=== PATIENT | female | born 1950 | race Caucasian/White ===

== ENCOUNTER 2020-06-16 08:00 | Outpatient (CLI) | payer MEDICARE, SELFPAY ==
--- NOTE | ~2020-06-16 | CT_ITS ---
EXAMINATION:CT chest wo con DATE: 06/16/2020 08:58 INDICATION: Lung nodule. TECHNIQUE: Computed tomography (CT) of the chest was performed without intravenous contrast. Automate d exposure control and iterative reconstruction technique were employed. The dose-length product (DLP ) was 92.91 mGy-cm. COMPARISON: PET CT 07/25/2019 FINDINGS: There is a stable 5 mm nodule in left lower lobe, consistent with granulomatous disease. Th ere is minimal atelectasis bilaterally. There is a broncholith in left upper lobe with bronchiectasis peripheral to the broncholith. The previously described nodule in this area has resolved. Calcified left hilar lymph nodes are consistent with old granulomatous disease. No pleural effusion. The heart size is normal. There are coronary artery calcifications. No pericardial effusion. There is mild thor acic spondylosis. IMPRESSION: 1. Bronchiectasis peripheral to a broncholith in left upper lobe. The previously described nodule in this area has resolved. Reviewed, dictated and finalized at location B. IMPRESSION: 1. Bronchiectasis peripheral to a broncholith in left upper lobe. The previousl y described nodule in this area has resolved.
--- NOTE | ~2020-06-16 | CT_ITS ---
EXAMINATION: CT abdomen pelvis w con DATE: 06/16/2020 08:56 INDICATION: Abdominal pain. TECHNIQUE: Computed tomography (CT) of the abdomen and pelvis was performed with 100 mL Omnipaque 350 intravenous contrast. Automated exposure control and iterative reconstruction technique were employe d. The dose-length product was 408.95 mGy-cm. COMPARISON: PET CT 07/25/2019 FINDINGS: The visualized portions of the lung bases demonstrate mild atelectasis. No pleural effusion . The heart size is normal. No pericardial effusion. There is a small sliding hiatal hernia. The live r is normal. Calcifications in the spleen are consistent with old granulomatous disease. There is a g allstone in the gallbladder, which is normal in size. The pancreas and adrenal glands are normal. The re are cysts in the kidneys measuring up to 1.5 cm on the right. There is fat stranding adjacent to a diverticulum of sigmoid colon, consistent with diverticulitis. There are no dilated loops of bowel. The appendix is not visualized. There are no pathologically enlarged lymph nodes. There is no free in traperitoneal fluid. There are multiple supraumbilical ventral hernias containing fat. There is mild lumbar spondylosis. IMPRESSION: 1. Mild sigmoid diverticulitis. No perforation or abscess. 2. Small sliding hiatal hernia. 3. Ventral hernias containing fat. 4. Cholelithiasis. Reviewed, dictated and finalized at location B.
[2020-06-16 08:43] LABS: Estimated Glomerular Filt Rate 50
== END 2020-06-16 08:01 | disposition home or self-care (01) ==
PROVIDERS: PCP Family Medicine; Visit Provider Family Medicine
DX: R10.9 Unspecified abdominal pain (principal); K21.9 Gastro-esophageal reflux disease without esophagitis; J47.9 Bronchiectasis, uncomplicated; K57.92 Diverticulitis of intestine, part unspecified, without perforation or abscess without bleeding; K44.9 Diaphragmatic hernia without obstruction or gangrene; K43.9 Ventral hernia without obstruction or gangrene; K80.20 Calculus of gallbladder without cholecystitis without obstruction
CPT/HCPCS: 71250; 74177; Q9967

== ENCOUNTER 2021-07-21 10:36 | Outpatient (CLI) | payer MEDICARE, SELFPAY ==
--- NOTE | ~2021-07-21 | MM_ITS ---
EXAMINATION: MM screening mickey BI w stone HISTORY: Screening TECHNIQUE: Craniocaudal and mediolateral oblique 3-D tomosynthesis images were obtained and synthetic 2-D images were generated. CAD analysis was submitted and interpreted. COMPARISON: Comparison to multiple prior studies sequentially, with oldest reviewed study dated 05/2015. BREAST PARENCHYMAL COMPOSITION: The breasts are heterogeneously dense, which may obscure small masses . FINDINGS: There is no evidence of suspicious mass, calcification, or architectural distortion to sugg est malignancy in either breast. There has been no suspicious interval change. IMPRESSION: 1. No mammographic evidence of malignancy. 2. Recommend routine screening mammography in one year. BI-RADS Category 1: Negative Reviewed, dictated and finalized at location A.
== END 2021-07-21 10:37 | disposition home or self-care (01) ==
LOC: ANHIMG 10:38
PROVIDERS: PCP Family Medicine; Visit Provider Family Medicine
DX: Z12.31 Encounter for screening mammogram for malignant neoplasm of breast (principal)
CPT/HCPCS: 77063; 77067

== ENCOUNTER → 2022-08-18 12:47 | Outpatient (CLI) | payer MEDICARE, SELFPAY ==
--- NOTE | ~2022-08-18 | US_ITS ---
US soft tissue UE LT 08/18/2022 13:09 Indication: Palpable area overlying the proximal ulna/radius for 3 weeks Procedure: High-resolution ultrasound of the area of palpable concern involving the posterior left fo rearm near the elbow Comparison: No prior studies for comparison. Findings: Normal heterogeneous soft tissues are seen without discrete solid or cystic mass. Impression: 1: Normal soft tissue ultrasound of the palpable area in the left upper extremity. No discrete mass i dentified. Reviewed, dictated and finalized at location B. Impression: 1: Normal soft tissue ultrasound of the palpable area in the left upper extremi ty. No discrete mass identified.
== END ==
PROVIDERS: PCP Family Medicine; Visit Provider Family Medicine
DX: R22.32 Localized swelling, mass and lump, left upper limb (principal)
CPT/HCPCS: 76882

== ENCOUNTER 2023-02-02 12:51 | Outpatient (CLI) | payer MEDICARE, MEDICAID, SELFPAY ==
--- NOTE | ~2023-02-02 | CT_ITS ---
Clinical Indication: Abnormal weight loss CT Scan of the Chest, Abdomen, and Pelvis with Contrast: Technique: Contiguous sections were acquired throughout the chest, abdomen, and pelvis after intraven ous administration of 100 cc of Omnipaque 350. Dose reduction technique was used on this scan by uti lizing automated exposure control and iterative reconstruction technique. The dose-length product (DL P) was 462.40 mGy-cm. COMPARISON: 06/16/2020 Findings: There is no evidence of any significant mediastinal, hilar or axillary lymphadenopathy. Calcified lef t hilar lymph nodes are present. Atherosclerotic calcifications of the aorta and coronary vessels are present. No large pulmonary embolus seen. No aortic aneurysm or dissection. There is no evidence of pleural or pericardial effusion. There is a 1.0 x 0.5 cm pleural-based nodule at the right middle lobe (axial image 87), not seen on p rior exam. No other significant pulmonary abnormality seen. The liver, spleen, pancreas, adrenals and kidneys are within normal limits. Small calcified gallstone present. There are atherosclerotic calcifications of the aorta. No lymphadenopathy. No bowel obstruction or bowel wall thickening. There is no evidence to suggest acute appendicitis. Fa t-containing umbilical hernia present. Urinary bladder is unremarkable. No adnexal mass seen. No ascites. Impression: 1.0 x 0.5 cm pleural-based nodule the right middle lobe. According to Fleischner Society criteria, co nsider short-term follow-up CT in 3 months, PET/CT, or attempted tissue sampling. Cholelithiasis. Fat-containing umbilical hernias. Reviewed, dictated and finalized at [facility]. Impression: 1.0 x 0.5 cm pleural-based nodule the right middle lobe. According to Fleischne r Society criteria, consider short-term follow-up CT in 3 months, PET/CT, or at tempted tissue sampling. Cholelithiasis. Fat-containing umbilical hernias.
[2023-02-02 13:19] LABS: Estimated Glomerular Filt Rate 40
== END 2023-02-02 12:52 | disposition home or self-care (01) ==
PROVIDERS: PCP Family Medicine; Visit Provider Family Medicine
DX: R63.4 Abnormal weight loss (principal); R05.9 Cough, unspecified; R91.1 Solitary pulmonary nodule; K80.20 Calculus of gallbladder without cholecystitis without obstruction; K42.9 Umbilical hernia without obstruction or gangrene
CPT/HCPCS: 71260; 74177; Q9967

== ENCOUNTER 2023-02-23 08:45 | Outpatient (CLI) | payer MEDICARE, MEDICAID, SELFPAY ==
--- NOTE | ~2023-02-23 | PE_ITS ---
EXAMINATION: PET_PETWHOLE_PT DATE: 02/23/2023 11:59 INDICATION: Nodule of lung TECHNIQUE: Blood glucose level was 121 mg/dL. 10.748 mCi of 18-fluorodeoxyglucose (18-FDG) was admini stered i.v. Low dose computed tomography (CT) images were acquired from the base of the brain to the proximal thighs for attenuation correction and anatomic localization. Positron emission tomography (P ET) images were acquired in the same distribution beginning 80 minutes after injection. Images includ ing fused PET/CT images were reconstructed in axial, coronal, and sagittal planes. Automated exposure control technique was employed. The dose-length product was 982.88mGy-cm. COMPARISON: None FINDINGS: Head/neck: There is symmetric increased activity in the oral cavity, palatine tonsils, parotid glands including small amount of more anterior ectopic parathyroid tissue overlying the right masseter muscle submandi bular glands, laryngeal muscles and ocular muscles without CT correlate, likely physiologic. No patho logically enlarged cervical lymphadenopathy or suspicious foci of increased FDG uptake in the visuali zed head or neck. Chest: Small calcified left upper lobe nodule and calcified left hilar and mediastinal lymph nodes consisten t with old granulomatous disease. No evident FDG uptake associated with a 10 x 5 mm pleural-based nod ule at the posterolateral right middle lobe. Mild discoid atelectasis in the left lower lobe. No susp icious pulmonary nodules, pneumonia, pulmonary edema or pleural effusion. Heart size is normal. Ather osclerotic coronary artery calcification is. No pericardial effusion. Thoracic aorta is normal in shakeel iber. There is mild uptake associated with a couple normal-sized bilateral axillary lymph nodes which are likely reactive. No pathologically enlarged thoracic lymphadenopathy. Abdomen/pelvis/proximal thighs: Physiologic renal accumulation and excretion of FDG activity in the kidneys, bladder and along portio ns of ureters. Normal degree and heterogenous pattern of increased uptake throughout the liver withou t radiologic correlate or dominant FDG avid lesion. The gallbladder, pancreas, spleen and bilateral a drenal glands are normal. Mild uptake scattered throughout the bowels without radiologic correlate, a lso likely physiologic. No other abnormal foci of increased FDG uptake or pathologically enlarged lym phadenopathy in the abdomen, pelvis or proximal thighs. Small fat-containing umbilical, supraumbilica l and infraumbilical ventral hernias. Musculoskeletal: Mild synovial uptake without radiologic correlate at the periphery of the joints at the bilateral luis alfredo ulders, hips and knees. There are also multiple foci of likely enthesopathic uptake at many sites of ligamentous or tendinous osseous attachments most prominent at the calcaneal origin of the plantar ap oneuroses and to lesser degree at multiple additional sites extending from the ischial tuberosities t o the knees and at multiple sites in the feet. No suspicious lytic, blastic or abnormally FDG avid mariella ne lesions. IMPRESSION: 1. No abnormal FDG uptake associated with a 10 x 5 mm pleural-based right middle lobe nodule. While r eassuring would recommend 6 month follow-up low-dose noncontrast chest CT . Reviewed, dictated and finalized at location L. IMPRESSION: 1. No abnormal FDG uptake associated with a 10 x 5 mm pleural-based right middl e lobe nodule. While reassuring would recommend 6 month follow-up low-dose nonc ontrast chest CT .
[2023-02-23 09:26] LABS: Glucose Point of Care 121 mg/dl (65-105)
== END 2023-02-23 08:46 | disposition home or self-care (01) ==
PROVIDERS: PCP Family Medicine; Visit Provider Family Medicine
DX: R91.1 Solitary pulmonary nodule (principal); R63.4 Abnormal weight loss
CPT/HCPCS: 78816; A9552

== ENCOUNTER → 2023-08-31 14:11 | Outpatient (CLI) | payer MEDICARE, MEDICAID, SELFPAY ==
--- NOTE | ~2023-08-31 | CT_ITS ---
EXAMINATION: CT diagnostic chest wo con DATE: 08/31/2023 14:27 INDICATION: Solitary pulmonary nodule, abnormal weight loss TECHNIQUE: Computed tomography (CT) of the chest was performed without intravenous contrast. The dose -length product (DLP) was 74.03 mGy-cm. Automated exposure control and iterative reconstruction techn ique were employed. COMPARISON: 02/02/2023 FINDINGS: There is a stable 10 mm x 5 mm pleural-based nodule of the right middle lobe. No additional pulmonary nodule is identified. The lungs are free of acute opacities. No pleural effusion or pneumo thorax. No pathologically enlarged thoracic lymph nodes are identified. The heart size is normal. The re is calcified coronary artery atherosclerosis. Cholelithiasis is noted. There is mild thoracic spon dylosis. IMPRESSION: 1. Stable right middle lobe nodule. Follow-up low-dose CT in six months is recommended. Reviewed, dictated and finalized at location L. 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 Stable right middle lobe nodule. Follow-up low-dose CT in six months is hilda mmended.
== END ==
PROVIDERS: PCP Family Medicine; Visit Provider Family Medicine
DX: R91.1 Solitary pulmonary nodule (principal)
CPT/HCPCS: 71250

== ENCOUNTER 2024-02-16 13:20 | Outpatient (CLI) | payer MEDICARE, MEDICAID, SELFPAY ==
--- NOTE | ~2024-02-16 | CT_ITS ---
CT Scan of the Chest without Contrast: Clinical Indication: Pulmonary nodule Technique: Contiguous sections were acquired throughout the chest without intravenous contrast. Dose reduction technique was used on this scan by utilizing automated exposure control and iterative recon struction technique. The dose-length product (DLP) was 73.51 mGy-cm. COMPARISON: 08/31/2023 Findings: There is no evidence of any significant mediastinal, hilar or axillary lymphadenopathy. There are ath erosclerotic ossifications of the aorta and coronary arteries. Calcified left hilar lymph nodes are p resent. There is no evidence of pleural or pericardial effusion. Calcified left upper lobe granuloma present. Stable pleural-based nodule right middle lobe (axial frank ge 89). Images through the upper abdomen reveal possible partially imaged clinically. Impression: Stable pleural-based right middle lobe pulmonary nodule. Possible splenomegaly, partially imaged. Reviewed, dictated and finalized at location . Impression: Stable pleural-based right middle lobe pulmonary nodule. Possible splenomegaly, partially imaged.
== END 2024-02-16 13:21 ==
PROVIDERS: PCP Family Medicine; Visit Provider Family Medicine
DX: R91.1 Solitary pulmonary nodule (principal)
CPT/HCPCS: 71250

== ENCOUNTER 2024-07-15 14:11 | Outpatient (CLI) | payer MEDICARE, MEDICAID, SELFPAY ==
--- NOTE | ~2024-07-15 | DEXA_ITS ---
Bone Density Report Name: TOMASA BAIN Age: 73 Sex: Female Ethnicity: White Date of : 1950 Indication: postmenopausal; screening for osteoporosis; rheumatoid arthritis; Referring Provider: SHASHANK, SINDHU Barron Study: Bone densitometry was performed. Exam Date: July 15, 2024 Accession number: [id number] Bone Density: Region BMD T-score Z-score Classification AP Spine(L1-L4) 0.868 -1.6 0.6 Osteopenia Femoral Neck (Left) 0.689 -1.4 0.5 Osteopenia Total Hip (Left) 0.809 -1.1 0.5 Osteopenia Femoral Neck (Right) 0.644 -1.8 0.1 Osteopenia Total Hip (Right) 0.762 -1.5 0.1 Osteopenia Total Hip Mean 0.785 -1.3 0.3 Osteopenia World Health Organization criteria for BMD impression classify patients as: Normal (T-score at or above -1.0), Osteopenia (T-score between -1.0 and -2.5), or Osteoporosis (T-score at or below -2.5). 10-year Fracture Risk(1): Major Osteoporotic Fracture 15% Hip Fracture 3.2% Reported Risk Factors: [place] (), Neck BMD=0.644, BMI=25.8, rheumatoid arthritis (1) FRAX(R) Version 3.08. Fracture probability calculated for an untreated patient. Fracture probability may be lower if the patient has received treatment. Previous Exams: Region Exam Age BMD T-score BMD Change BMD Change Date g/cm2 vs Baseline vs Previous AP Spine (L1-L4) 07/15/2024 73 0.868 -1.6 -0.092 (-9.6%) -0.109 (-11.2% 02/07/2017 66 0.977 -0.6 0.017 (1.7%) 0.017 (1.7%) 11/09/2015 65 0.960 -0.8 Total Hip(Left) 07/15/2024 73 0.809 -1.1 -0.180 (-18.2% -0.195 (-19.4% 02/07/2017 66 1.004 0.5 0.014 (1.5%) 0.014 (1.5%) 11/09/2015 65 0.989 0.4 Total Hip(Right) 07/15/2024 73 0.762 -1.5 -0.198 (-20.6% -0.188 (-19.8% 02/07/2017 66 0.950 0.1 -0.010 (-1.0%) -0.010 (-1.0%) 11/09/2015 65 0.960 0.1 *Denotes significance at 95% confidence level, LSC for AP Spine = 0.022 g/cm2, LSC for Total Hip = 0.027 g/cm2 Clinical Information Provided by Patient: Has rheumatoid arthritis Has used the following medications: Vitamin D Patient maximum height was 67.0 Menopause Age: 57 No regular weight bearing exercise Drinks caffeinated beverages Onset of menses at age 17 Number of children 1 Impression: The patient has low bone mass, based on the Right Femoral Neck T-score. The patient has an estimated ten-year risk of hip fracture of 3.2% and an estimated ten-year risk of major fractur
== END 2024-07-15 14:12 | disposition home or self-care (01) ==
LOC: ANHIMG 14:13
PROVIDERS: PCP Nurse Practitioner Family; Visit Provider Nurse Practitioner Family
DX: M85.89 Other specified disorders of bone density and structure, multiple sites (principal); Z13.820 Encounter for screening for osteoporosis
CPT/HCPCS: 77080

== ENCOUNTER 2024-07-23 16:25 | Outpatient (CLI) | payer MEDICARE, MEDICAID, SELFPAY ==
--- NOTE | ~2024-07-23 | MM_ITS ---
EXAMINATION: MM screening mickey BI w stone HISTORY: Screening TECHNIQUE: Craniocaudal and mediolateral oblique 3-D tomosynthesis images were obtained and synthetic 2-D images were generated. CAD analysis was submitted and interpreted. COMPARISON: Comparison to multiple prior studies sequentially, with oldest reviewed study dated 2014. BREAST PARENCHYMAL COMPOSITION: Not dense: There are scattered areas of fibroglandular density. FINDINGS: There is no evidence of suspicious mass, calcification, or architectural distortion to sugg est malignancy in either breast. There has been no suspicious interval change. IMPRESSION: 1. No mammographic evidence of malignancy. 2. Recommend routine screening mammography in one year. BI-RADS Category 1: Negative Reviewed, dictated and finalized at location B.
== END 2024-07-23 16:26 | disposition home or self-care (01) ==
LOC: ANHIMG 16:25
PROVIDERS: PCP Nurse Practitioner Family; Visit Provider Nurse Practitioner Family
DX: Z12.31 Encounter for screening mammogram for malignant neoplasm of breast (principal)
CPT/HCPCS: 77063; 77067

== ENCOUNTER 2024-11-02 10:25 | Inpatient (IN) | payer MEDICARE, MEDICAID, SELFPAY ==
[2024-11-02] VITALS (26 sets, daily range): BP systolic 118–175; BP diastolic 55–79; PULSE 95–110; RESP 15–29; TEMP 36.2–36.3; O2SAT 96–100; BMI 26.1
--- NOTE | ~2024-11-02 | XR_ITS ---
XR chest 2V DATE: 11/02/2024 11:20 INDICATION: Chest pain for 3 days, shortness of breath TECHNIQUE: AP and lateral views COMPARISON: 02/16/2024 CT chest FINDINGS: Normal heart size. There is aortic arch calcification and mild thoracic aortic tortuosity. No hilar or mediastinal enlargement. There is bilateral hyperinflation suggesting COPD. No pulmonary infiltrate or consolidation, pleural effusion or pulmonary vascular congestion or pneumo thorax is detected. Osteoarthritic changes noted at the glenohumeral joints, greater on the left. Osteopenia. Mild degene rative spurring of the thoracic spine. IMPRESSION: Bilateral hyperinflation suggesting COPD No active cardiopulmonary disease Aortic calcification and tortuosity Osteopenia Bilateral glenohumeral osteoarthritis Reviewed, dictated and finalized at location [facility]. [facility] [employer]
--- NOTE | 2024-11-02 10:41 | ECG_ITS ---
Test Date: 2024-11-02 10:47:13 Measurements Intervals [place] Rate: 106 P: 59 [place]: 144 QRS: 37 QRSD: 114 T: 51 QT: 368 QTc: 489 Interpretive Statements SINUS TACHYCARDIA PROBABLE LATERAL MYOCARDIAL INFARCTION , OF INDETERMINATE AGE [35 ms Q WAVE IN I/aVL/V5/V6] INFEROLATERAL ST ABNORMALITY, CONSIDER ISCHEMIA ABNORMAL ECG Electronically Signed On 11-02-2024 10:53:19 PHYSICAL INSTRUCTOR by Omero Main M.D.
[2024-11-02 11:13] LABS: Hematocrit 26.2 % (37.0-47.0); Hemoglobin 8.2 g/dL (12.0-15.0); Mean Corpuscular HGB Conc 31.3 g/dl (32-36); Mean Corpuscular Volume 60.8 fl (80-100); Mean Platelet Volume 10.4 fl (7.4-10.4); Platelet Count Result 291 k/mm3 (150-375); Red Blood Count 4.31 M/mm3 (4.2-5.4); Red Cell Distribution Width 17.3 % (11.5-14.5); White Blood Count 33.3 K/mm3 (4.5-10.0)
[2024-11-02 11:26] LABS: INR 1.1; Prothrombin Time 14.2 Seconds (11.1-14.7)
[2024-11-02 11:27] LABS: Partial Thromboplastin Time 24.3 Seconds (22.3-36.8)
[2024-11-02 11:36] LABS: Band Neutrophils Percent 11 % (0-6); Large Platelets Present; Lymphocytes Absolute Manual 1.66 K/mm3 (1.1-4.5); Lymphocytes Percent Manual 5 % (18-44); Monocytes Absolute Manual 1.33 K/mm3 (0.1-0.90); Monocytes Percent Manual 4 % (3-9); Neutrophils Percent Manual 80 % (46-73); Platelet Estimate Adequate (Adequate); Total Cells Counted 100
[2024-11-02 11:37] LABS: Anisocytosis 1+; Burr Cells 2+; Ovalocytes 1+; Schistocytes Rare
[2024-11-02 11:38] LABS: Troponin I < 0.012 ng/mL (0.000-0.034)
[2024-11-02 11:55] LABS: Alanine Aminotransferase 26 U/L (6-35); Albumin Level 4.3 g/dL (3.5-5.1); Alkaline Phosphatase 77 U/L (38-126); Anion Gap 15 mmol/L (4-12); Aspartate Amino Transferase 21 U/L (14-36); Bilirubin,Total 1.1 mg/dL (0.2-1.3); Blood Urea Nitrogen 6 mg/dL (7-17); Calcium 9.2 mg/dL (8.4-10.2); Carbon Dioxide 15 mmol/L (22-30); Chloride 86 mmol/L (98-107); Estimated CRCL calculation 47 ml/min; Estimated Glomerular Filt Rate 59; Glucose 286 mg/dL (65-110); Lipase 74 U/L (23-300); Potassium 3.8 mmol/L (3.4-5.0); Sodium 116 mmol/L (137-145)
[2024-11-02] MEDS: ASPIRIN 81 MG CHEWABLE TABLET 324 MG PO (12:09)
[2024-11-02] MEDS: SODIUM CHLORIDE 0.9% IV 1,000 ML 999 ML IV CONT (12:24)
[2024-11-02] MEDS: MORPHINE SULFATE (*CRX) 4 MG/ML INJ IV PUSH ×2 (13:30→16:03)
[2024-11-02 13:33] LABS: Add Urine Microscopic? NO; Appearance Urine Clear (Clear); Bilirubin Urine Negative (Negative); Blood Urine Negative (Negative); Color Urine Yellow (Yellow); Glucose Urine UA 3+ mg/dL (Negative); Ketones Urine Trace mg/dL (Negative); Leukocyte Esterase Ur Negative LEU/UL (Negative); Nitrate Urine Negative (Negative); Protein Urine Negative (Negative); Specific Grav Ur 1.022 (1.001-1.035); Urobilinogen Urine 0.2 mg/dL (<2.0); pH Urine 5.5 (5.0-9.0)
--- NOTE | 2024-11-02 14:05 | PM.IMHP ---
H&P: HPI History of Present Illness Date/Time: 11/02/24 14:05 Chief Complaint: Body aches Narrative: 74-year-old female past medical history of diabetes, hypertension hyperlipidemia and arthritis presents to the hospital with vague complaints of general body aches. Patient is unable to describe her symptoms very well however she states that she feels better now. She denies nausea vomiting fever chills. Patient has leukocytosis at 33.2 anemia and 8.2, sodium of 116 hyperglycemia of to 86, UA was negative for acute infection, chest x-ray shows bilateral hyperinflation, no acute cardiopulmonary process, EKG shows sinus tachycardia qtc 489, patient was given 1 L bolus in the emergency room and sodium was ruled checked and came back at 121, she was started on half-normal saline at 75 by nephrology. Review of Systems Review of Systems: 12 systems were reviewed and are negative except for as per HPI. [facility] Past Medical History Medical History (Updated 11/03/24 @ 00:30 by Elba Lee, [employer]) Arthritis Diabetes Hyperlipidemia Hypertension Social History Social History Smoking packs per day: 1 Smoking cigarettes per day: 20.0 Smoking status: Former smoker Tobacco type: cigarettes Alcohol intake: current Drinks per week: 1 Substance use: current Substance use type: marijuana Other substance usage details: every day marijuana Last use: 11/02/2024 Do You Feel Safe in your Home?: Yes Lack of Transportation: No Lack of Food: Never True Current Housing: I Have Housing Concerned About Future Housing: No Difficulty Paying Gas/Electric Bills: No Difficulty Paying for Meds: No Currently Unemployed: No Education: Grade School Difficulty w/ Childcare or Family Care: No Spiritual care concerns: No Meds Home Medications and Allergies Home Medications ?Medication ?Instructions ?Recorded ?Confirmed ?Type amlodipine 5 mg tablet 5 mg PO DAILY 11/02/24 11/02/24 History ergocalciferol (vitamin D2) 1,250 1,250 mcg PO DAILY 11/02/24 11/02/24 History mcg (50,000 unit) capsule etanercept 50 mg/mL (1 mL) 50 mg subcut WEEKLY 11/02/24 11/02/24 History subcutaneous pen injector (Enbrel SureClick) fenofibrate 160 mg tablet 160 mg PO QHS 11/02/24 11/02/24 History glipizide 10 mg tablet, extended 20 mg PO DAILY 11/02/24 11/02/24 History release 24 hr hydrochlorothiazide 25 mg tablet 25 mg PO DAILY 11/02/24 11/02/24 History hydroxychloroquine 200 mg tablet 310 mg PO BID 11/02/24 11/02/24 History isosorbide mononitrate 30 mg 30 mg PO DAILY 11/02/24 11/02/24 History tablet,extended release 24 hr leflunomide 20 mg tablet (Arava) 20 mg PO DAILY 11/02/24 11/02/24 History levothyroxine 75 mcg tablet 75 mcg PO DAILY 11/02/24 11/02/24 History losartan 100 mg tablet 100 mg PO DAILY 11/02/24 11/02/24 History metformin 1,000 mg tablet 1,000 mg PO BID 11/02/24 11/02/24 History omeprazole 40 mg capsule,delayed 40 mg PO DAILY 11/02/24 11/02/24 History release potassium chloride 20 mEq 20 meq PO BID 11/02/24 11/02/24 History tablet,extended release (K-Tab) simvastatin 20 mg tablet 20 mg PO DAILY 11/02/24 11/02/24 History sitagliptin phosphate 100 mg 100 mg PO DAILY 11/02/24 11/02/24 History tablet (Januvia) tirzepatide 5 mg/0.5 mL 5 mg subcut WEEKLY 11/02/24 11/02/24 History subcutaneous pen injector (Milad) Allergies Allergy/AdvReac Type Severity Reaction Status Date / Time codeine AdvReac Unknown Nausea and Verified 11/02/24 23:35 Vomiting Vital Signs Vital Signs - 24 hr 11/02/24 10:43 11/02/24 12:10 11/02/24 12:11 Temperature 97.4 F L Pulse Rate 108 H 107 H Respiratory Rate 16 Blood Pressure 145/67 H Pulse Oximetry 98 96 Oxygen Delivery Room Air Room Air 11/02/24 12:12 11/02/24 12:47 11/02/24 13:36 Temperature Pulse Rate 110 H 104 H Respiratory Rate 17 29 H 20 Blood Pressure 158/75 H Pulse Oximetry 100 100 99 Oxygen Delivery Exam Narrative: General: well appearing, appears stated age. HEENT: normocephalic, atraumatic. Mucous membranes moist. EOMI, PERRLA, bilateral sclera anicteric, no conjunctival injection. Neck supple without JVD, lymphadenopathy, or bruit. Respiratory: clear to ascultation bilaterally. Wheezing Cardiovascular: Regular rate and rhythm, normal S1-S2 upon ascultation. No murmurs, rubs, or clicks. PMI is nondisplaced, capillary refill less than 3 second. Abdomen: Soft, round, no pulsatile masses, nondistended and nontender. No rebound, no guarding. No CVA tenderness, no hepatosplenomegaly. Bowel sounds present to all four quadrants. No high pitch or tinkling sounds, resonant to percussion. Extremities: No cyanosis, clubbing, or edema present. Pulses are palpable 2/2. Active ROM to all four extremities. Neuro: Alert and orientated x 4. PERRLA. Cranial nerves 2-12 intact without focal deficit. Skin: Warm, dry, and intact, without rash, erythema, or lesion. Psych: pleasant, cooperative, normal speech, normal affect, no hallucinations, no dysarthia H&P: Results Labs Labs: Short CBC 11/02/24 Range/Units 11:00 WBC 33.3 H (4.5-10.0) K/mm3 Hgb 8.2 L (12.0-15.0) g/dL Hct 26.2 L (37.0-47.0) % Plt Count 291 (150-375) k/mm3 BMP 11/02/24 11:00 Sodium 116 L* Potassium 3.8 Chloride 86 L Carbon Dioxide 15 L BUN 6 L Creatinine 0.93 Glucose 286 H Calcium 9.2 Cardiac Enzymes 11/02/24 Range/Units 11:00 Troponin I < 0.012 (0.000-0.034) ng/mL Liver Function 11/02/24 Range/Units 11:00 Total Bilirubin 1.1 (0.2-1.3) mg/dL AST 21 (14-36) U/L ALT 26 (6-35) U/L Alkaline Phosphatase 77 (38-126) U/L Albumin 4.3 (3.5-5.1) g/dL Urine 11/02/24 Range/Units 13:27 Urine Color Yellow (Yellow) Urine Appearance Clear (Clear) Urine pH 5.5 (5.0-9.0) Ur Specific [place] 1.022 (1.001-1.035) Urine Protein Negative (Negative) mg/dL Urine Glucose (UA) 3+ H (Negative) mg/dL Assessment and Plan Assessment and plan (1) Acute hyponatremia: Code(s): E87.1 - Hypo-osmolality and hyponatremia Status: Acute Assessment and Plan: Nephrology consulted Q.6 hours sodium Free water restriction Half-normal saline Fluid restriction (2) Body aches: Code(s): R52 - Pain, unspecified Status: Acute Assessment and Plan: Pain management (3) Leukocytosis: Code(s): D72.829 - Elevated white blood cell count, unspecified Status: Acute Assessment and Plan: Unknown cause UA no acute infection Blood cultures pending Chest x-ray no acute process No soft tissue infection (4) Hypertension: Code(s): I10 - Essential (primary) hypertension Status: Acute Assessment and Plan: Hold hydrochlorothiazide due to severe hyponatremia Continue losartan (5) Diabetes: Code(s): E11.9 - Type 2 diabetes mellitus without complications Status: Acute Assessment and Plan: Accu-Cheks a.c. HS SSI Diabetic diet Hold home anti hyperglycemic medications (6) Arthritis: Code(s): M19.90 - Unspecified osteoarthritis, unspecified site Status: Acute Assessment and Plan: Continue hydrochloroquine and Arava (7) Hypothyroidism: Code(s): E03.9 - Hypothyroidism, unspecified Status: Acute Assessment and Plan: Continue Synthroid Quality VTE Prophylaxis VTE prophylaxis: mechanical ordered and pharmacologic ordered Hospitalist MIPS Advance Care Plan I have confirmed that the patient's Advanced Care Plan is present, code status is documented, or surrogate decision maker is listed in patient medical record.: Yes Medication Reconciliation I have utilized all available resources to obtain, update and review the patients current medications (includes all prescriptions, OTC, herbals, cannabis, and nutritional supplements).: Yes
[2024-11-02 14:23] LABS: Troponin I < 0.012 ng/mL (0.000-0.034)
--- NOTE | 2024-11-02 14:23 | ED.GENADULT ---
HPI - General Adult General Chief complaint: Unspecified Stated complaint: SOB, leg/hip pain, chest pain Time Seen by Provider: 11/02/24 12:08 History of Present Illness HPI narrative: Patient is a 74-year-old female who presents ER with multiple complaints. Her main complaint for me is body aches. Reports it is in her knees and back. Patient has history of some sort of arthritis but she does not know the name. Chart review shows she is on immunologic so it is likely that she has rheumatoid arthritis or psoriatic arthritis. She does not seem to know the name of her medications or why she takes some. She denies fevers or chills or sweats. No new injury. Patient does report some generalized weakness. No falls. Related Data Allergies Allergy/AdvReac Type Severity Reaction Status Date / Time codeine AdvReac Unknown Nausea and Verified 11/02/24 12:42 Vomiting Review of Systems Review of Systems: All systems reviewed & are unremarkable except as noted in HPI and below Constitutional: Constitutional: Reports no additional constitutional complaints Cardiovascular: Cardiovascular: Reports no additional cardiovascular complaints Respiratory: Respiratory: Reports no additional respiratory complaints Gastrointestinal: Gastrointestinal: Reports no additional gastrointestinal complaints Musculoskeletal: Musculoskeletal: Denies back pain, Reports myalgias, Reports arthralgias and Denies joint swelling Neurologic: Reports system reviewed and no additional complaints, except as documented PMFSH Past Medical History Medical History (Updated 11/02/24 @ 19:37 by Stevenson Gary MD) Arthritis Diabetes Hyperlipidemia Hypertension Social History Social History Smoking status: Never smoker Alcohol intake: current Exam Narrative: GENERAL: Well-appearing, well-nourished, and in no acute distress. HEAD: Normocephalic, atraumatic. ENT: Mucous membranes moist. NECK: Supple. CHEST: Clear to auscultation. No respiratory distress. HEART: Regular rate and rhythm. Normal peripheral pulses. ABDOMEN: Soft, nontender, nondistended EXTREMITIES: Normal range of motion. No edema. SKIN: Warm, dry, no rash. NEURO: Alert and oriented x3. PSYCH: Normal mood and affect. Course Course Emergency Course: Significant leukocytosis. Denies steroid use. No infection on chest x-ray or within the urine. Patient has mild sore throat but strep test is negative. Patient does have a significantly low sodium of 116. She reports she drinks 8-9 glasses of water a day. Nephrology consulted. Patient received 1 L normal saline and we will repeat a sodium and then performed q.6 our checks on her sodium level. Patient is on HCTZ and that will need to be held. Patient has normal appearing joints and there is no evidence of effusion or erythema of the joints to indicate a septic joint. She has normal range of motion with active motion. Patient may be having cramping myalgias related to electrolyte disruption. Vital Signs Vital signs: Vital Signs Temperature 97.4 F L 11/02/24 10:43 Pulse Rate 108 H 11/02/24 10:43 Respiratory Rate 16 11/02/24 10:43 Blood Pressure 145/67 H 11/02/24 10:43 Pulse Oximetry 98 11/02/24 10:43 Oxygen Delivery Room Air 11/02/24 10:43 Temperature 97.4 F L 11/02/24 10:43 Pulse Rate 98 11/02/24 18:31 Respiratory Rate 19 11/02/24 18:31 Blood Pressure 175/70 H 11/02/24 18:31 Pulse Oximetry 100 11/02/24 18:31 Oxygen Delivery Room Air 11/02/24 12:10 Medical Decision Making Vital Signs Vital Signs: Vital Signs Temperature 97.4 F L 11/02/24 10:43 Pulse Rate 108 H 11/02/24 10:43 Respiratory Rate 16 11/02/24 10:43 Blood Pressure 145/67 H 11/02/24 10:43 Pulse Oximetry 98 11/02/24 10:43 Oxygen Delivery Room Air 11/02/24 10:43 Temperature 97.4 F L 11/02/24 10:43 Pulse Rate 98 11/02/24 18:31 Respiratory Rate 19 11/02/24 18:31 Blood Pressure 175/70 H 11/02/24 18:31 Pulse Oximetry 100 11/02/24 18:31 Oxygen Delivery Room Air 11/02/24 12:10 Lab Data 11/02/24 11:00 11/02/24 15:31 Labs: Lab Results 11/02/24 11/02/24 11/02/24 Range/Units 11:00 13:27 13:54 WBC 33.3 H (4.5-10.0) K/mm3 RBC 4.31 (4.2-5.4) M/mm3 Hgb 8.2 L (12.0-15.0) g/dL Hct 26.2 L (37.0-47.0) % MCV 60.8 L (80-100) fl MCH 19.0 L (26-34) pg MCHC 31.3 L (32-36) g/dl RDW 17.3 H (11.5-14.5) % Plt Count 291 (150-375) k/mm3 MPV 10.4 (7.4-10.4) fl Immature Gran % (Auto) Not Reportable Neut % (Auto) Not Reportable Lymph % (Auto) Not Reportable [place] % (Auto) Not Reportable Eos % (Auto) Not Reportable Baso % (Auto) Not Reportable Lymph # (Auto) Not Reportable [place] # (Auto) Not Reportable Eos # (Auto) Not Reportable Baso # (Auto) Not Reportable Abs Immat Gran (auto) Not Reportable Absolute Neuts (auto) Not Reportable Absolute Nucleated RBC Not Reportable Total Counted 100 Neutrophils % (Manual) 80 H (46-73) % Band Neutrophils % 11 H (0-6) % Lymphocytes % (Manual) 5 L (18-44) % Monocytes % (Manual) 4 (3-9) % Nucleated RBC % Not Reportable Abs Neuts (Manual) 30.30 H (1.7-7.2) K/mm3 Abs Lymphs (Manual) 1.66 (1.1-4.5) K/mm3 Abs Monocytes (Manual) 1.33 H (0.1-0.90) K/mm3 Platelet Estimate Adequate (Adequate) Large Platelets Present Anisocytosis 1+ Ovalocytes 1+ Jonn Cells 2+ Schistocytes Rare PT 14.2 (11.1-14.7) Seconds INR 1.1 APTT 24.3 (22.3-36.8) Seconds Sodium 116 L* (137-145) mmol/L Potassium 3.8 (3.4-5.0) mmol/L Chloride 86 L (98-107) mmol/L Carbon Dioxide 15 L (22-30) mmol/L Anion Gap 15 H (4-12) mmol/L BUN 6 L (7-17) mg/dL Creatinine 0.93 (0.7-1.0) mg/dL Estim Creat Clear Calc 47 ml/min Estimated GFR 59 (59 - ) Glucose 286 H (65-110) mg/dL Calcium 9.2 (8.4-10.2) mg/dL Total Bilirubin 1.1 (0.2-1.3) mg/dL AST 21 (14-36) U/L ALT 26 (6-35) U/L Alkaline Phosphatase 77 (38-126) U/L Troponin I < 0.012 < 0.012 (0.000-0.034) ng/mL Total Protein 7.0 (6.3-8.2) g/dL Albumin 4.3 (3.5-5.1) g/dL Lipase 74 (23-300) U/L Urine Color Yellow (Yellow) Urine Appearance Clear (Clear) Urine pH 5.5 (5.0-9.0) Ur Specific [place] 1.022 (1.001-1.035) Urine Protein Negative (Negative) mg/dL Urine Glucose (UA) 3+ H (Negative) mg/dL Urine Ketones Trace H (Negative) mg/dL Ur Blood (Man) Negative (Negative) Urine Nitrate Negative (Negative) Urine Bilirubin Negative (Negative) Urine Urobilinogen 0.2 (<2.0) mg/dL Leukocyte Esterase Rfl Negative (Negative) JOSUE/UL Group A Strep (PCR) (Negative) 11/02/24 11/02/24 Range/Units 15:31 15:31 WBC (4.5-10.0) K/mm3 RBC (4.2-5.4) M/mm3 Hgb (12.0-15.0) g/dL Hct (37.0-47.0) % MCV (80-100) fl MCH (26-34) pg MCHC (32-36) g/dl RDW (11.5-14.5) % Plt Count (150-375) k/mm3 MPV (7.4-10.4) fl Immature Gran % (Auto) Neut % (Auto) Lymph % (Auto) [place] % (Auto) Eos % (Auto) Baso % (Auto) Lymph # (Auto) [place] # (Auto) Eos # (Auto) Baso # (Auto) Abs Immat Gran (auto) Absolute Neuts (auto) Absolute Nucleated RBC Total Counted Neutrophils % (Manual) (46-73) % Band Neutrophils % (0-6) % Lymphocytes % (Manual) (18-44) % Monocytes % (Manual) (3-9) % Nucleated RBC % Abs Neuts (Manual) (1.7-7.2) K/mm3 Abs Lymphs (Manual) (1.1-4.5) K/mm3 Abs Monocytes (Manual) (0.1-0.90) K/mm3 Platelet Estimate (Adequate) Large Platelets Anisocytosis Ovalocytes [place] Cells Schistocytes PT (11.1-14.7) Seconds INR APTT (22.3-36.8) Seconds Sodium 121 L Cancelled (137-145) mmol/L Potassium 3.7 (3.4-5.0) mmol/L Chloride 92 L (98-107) mmol/L Carbon Dioxide 20 L (22-30) mmol/L Anion Gap 9 (4-12) mmol/L BUN 5 L (7-17) mg/dL Creatinine 0.94 (0.7-1.0) mg/dL Estim Creat Clear Calc 46 ml/min Estimated GFR 59 (59 - ) Glucose 222 H (65-110) mg/dL Calcium 8.9 (8.4-10.2) mg/dL Total Bilirubin (0.2-1.3) mg/dL AST (14-36) U/L ALT (6-35) U/L Alkaline Phosphatase (38-126) U/L Troponin I (0.000-0.034) ng/mL Total Protein (6.3-8.2) g/dL Albumin (3.5-5.1) g/dL Lipase (23-300) U/L Urine Color (Yellow) Urine Appearance (Clear) Urine pH (5.0-9.0) Ur Specific [place] (1.001-1.035) Urine Protein (Negative) mg/dL Urine Glucose (UA) (Negative) mg/dL Urine Ketones (Negative) mg/dL Ur Blood (Man) (Negative) Urine Nitrate (Negative) Urine Bilirubin (Negative) Urine Urobilinogen (<2.0) mg/dL Leukocyte Esterase Rfl (Negative) JOSUE/UL Group A Strep (PCR) Not detected (Negative) Imaging Data Radiologist's impression: ITS Impressions Chest X-Ray 11/02/24 11:23 IMPRESSION: Bilateral hyperinflation suggesting COPD No active cardiopulmonary disease Aortic calcification and tortuosity Osteopenia Bilateral glenohumeral osteoarthritis Discharge Plan Discharge Clinical Impression: Acute hyponatremia, Body aches, Leukocytosis Patient Disposition: Still a Patient Condition: Stable
[2024-11-02 15:47] LABS: Anion Gap 9 mmol/L (4-12); Blood Urea Nitrogen 5 mg/dL (7-17); Calcium 8.9 mg/dL (8.4-10.2); Carbon Dioxide 20 mmol/L (22-30); Chloride 92 mmol/L (98-107); Estimated CRCL calculation 46 ml/min; Estimated Glomerular Filt Rate 59; Glucose 222 mg/dL (65-110); Potassium 3.7 mmol/L (3.4-5.0); Sodium 121 mmol/L (137-145)
[2024-11-02 16:00] LABS: Strep Group A RT-PCR NOT DETECTED (Negative)
[2024-11-02] MEDS: SODIUM CHLORIDE 0.9% IV 1,000 ML 100 ML IV CONT (16:02)
--- NOTE | 2024-11-02 19:27 | PC.NURSE ---
pt arrived arrived from ED to [id number] @[id number] 11/02/24.
[2024-11-02 20:45] LABS: Troponin I < 0.012 ng/mL (0.000-0.034)
[2024-11-02] MEDS: SODIUM CHLORIDE 0.45% 1,000 ML 75 ML IV CONT (21:50)
[2024-11-02] MEDS: MORPHINE SULFATE (*CRX) 2 MG/ML INJ IV PUSH (22:01)
--- NOTE | 2024-11-02 23:36 | ADMGEN ---
This patient, Kianna Hill, was admitted to [address] [place] [address] Room 331-02 at approx 1900. Patient/family oriented to hospital policies and general routines including ID bracelet, bed and alarms, visiting hours, pain management, procedures, bathroom and other care routines, personal items, smoking policy, room service/diet, and visiting hours. Information on how to activate the Rapid Response Team has been discussed. Patient/Family are encouraged to report perceived risks to care and to ask questions if they do not understand what they are told or what they should do.
[2024-11-03 00:59] VITALS: BP 147/70; PULSE 94; RESP 16; TEMP 36.8; O2SAT 97
[2024-11-03 01:05] LABS: Add Urine Microscopic? YES; Appearance Urine Clear (Clear); Bacteria Urine 1+ /hpf; Bilirubin Urine Negative (Negative); Blood Urine Trace (Negative); Color Urine Yellow (Yellow); Glucose Urine UA 3+ mg/dL (Negative); Ketones Urine Trace mg/dL (Negative); Leukocyte Esterase Ur 1+ LEU/UL (Negative); Nitrate Urine Negative (Negative); Non Pathogenic Casts 0-2; Protein Urine 1+ mg/dL (Negative); RBC Urine 0-2 /hpf (0-2); Specific Grav Ur 1.018 (1.001-1.035); Squamous Epithelial Cell Urine Few /hpf (Few); Urobilinogen Urine 0.2 mg/dL (<2.0)
[2024-11-03 05:30] VITALS: BP 167/67; PULSE 101; RESP 16; TEMP 36.5; O2SAT 98
[2024-11-03] MEDS: LEVOTHYROXINE SODIUM 75 MCG TABLET PO (06:00)
[2024-11-03 06:39] LABS: Basophils Absolute Auto 0.1 K/mm3 (0.0-0.1); Basophils Percent Auto 0.2 % (0.2-1.2); Hematocrit 26.9 % (37.0-47.0); Hemoglobin 7.8 g/dL (12.0-15.0); Immature Granulocyte Absolute 0.19 K/mm3 (0.00-0.031); Immature Granulocyte Percent A 0.8 % (0-0.5); Lymphocytes Absolute Auto 1.07 K/mm3 (0.9-3.2); Lymphocytes Percent Auto 4.3 % (18.3-44.2); Mean Corpuscular Hemoglobin 18.2 pg (26-34); Mean Corpuscular Volume 62.7 fl (80-100); Mean Platelet Volume 10.7 fl (7.4-10.4); Monocytes Absolute Auto 1.6 K/mm3 (0.1-0.6); Monocytes Percent Auto 6.2 % (2.6-8.5); Neutrophils Absolute Auto 22.2 K/mm3 (1.3-6.7); Neutrophils Percent Auto 88.5 % (45.5-73.1); Platelet Count Result 309 k/mm3 (150-375); Red Blood Count 4.29 M/mm3 (4.2-5.4); White Blood Count 25.1 K/mm3 (4.5-10.0)
[2024-11-03 06:44] LABS: Anion Gap 9 mmol/L (4-12); Blood Urea Nitrogen 8 mg/dL (7-17); Calcium 8.7 mg/dL (8.4-10.2); Carbon Dioxide 21 mmol/L (22-30); Chloride 95 mmol/L (98-107); Estimated CRCL calculation 51 ml/min; Estimated Glomerular Filt Rate > 60; Glucose 159 mg/dL (65-110); Potassium 3.9 mmol/L (3.4-5.0); Sodium 125 mmol/L (137-145)
[2024-11-03 07:15] LABS: Platelet Estimate Adequate (Adequate)
[2024-11-03 07:18] LABS: Anisocytosis 1+; Burr Cells 1+; Microcytosis 1+ (NORMAL); Ovalocytes 1+
[2024-11-03 07:19] LABS: Acanthocytes 1+; Schistocytes None Seen
[2024-11-03 07:20] LABS: Hypochromasia 1+
[2024-11-03 08:09] LABS: Glucose Point of Care 165 mg/dl (65-105)
--- NOTE | 2024-11-03 10:30 | PM.IMPN ---
Progress Note: A&P Assessment and Plan (1) Acute hyponatremia: Code(s): E87.1 - Hypo-osmolality and hyponatremia Status: Acute Assessment and Plan: Nephrology consulted Q.6 hours sodium Free water restriction Half-normal saline Fluid restriction (2) Body aches: Code(s): R52 - Pain, unspecified Status: Acute Assessment and Plan: Pain management (3) Leukocytosis: Code(s): D72.829 - Elevated white blood cell count, unspecified Status: Acute Assessment and Plan: Unknown cause UA no acute infection Blood cultures pending Chest x-ray no acute process Urias culture and start Ceftriaxone (4) Hypertension: Code(s): I10 - Essential (primary) hypertension Status: Acute Assessment and Plan: Hold hydrochlorothiazide due to severe hyponatremia Continue losartan (5) Diabetes: Code(s): E11.9 - Type 2 diabetes mellitus without complications Status: Acute Assessment and Plan: Accu-Cheks a.c. HS SSI Diabetic diet Hold home anti hyperglycemic medications (6) Arthritis: Code(s): M19.90 - Unspecified osteoarthritis, unspecified site Status: Acute Assessment and Plan: Continue hydrochloroquine and Arava (7) Hypothyroidism: Code(s): E03.9 - Hypothyroidism, unspecified Status: Acute Assessment and Plan: Continue Synthroid Plan 11/03/2024 Will continue current treatment. Monitor cbc, cmp and cultures. Code status full DVT prophylaxis ordered Subjective Date/time seen: 11/03/24 10:30 Interval history: Patient was seen during the morning rounds today. Patient is feeling better. No shortness of breath or chest pain. No abdominal pain, nausea, no vomiting. Review of Systems Review of Systems: 12 systems were reviewed and are negative except for as per HPI. Exam Narrative: General: well appearing, appears stated age. HEENT: normocephalic, atraumatic. Mucous membranes moist. EOMI, PERRLA, bilateral sclera anicteric, no conjunctival injection. Neck supple without JVD, lymphadenopathy, or bruit. Respiratory: clear to ascultation bilaterally. Wheezing Cardiovascular: Regular rate and rhythm, normal S1-S2 upon ascultation. No murmurs, rubs, or clicks. PMI is nondisplaced, capillary refill less than 3 second. Abdomen: Soft, round, no pulsatile masses, nondistended and nontender. No rebound, no guarding. No CVA tenderness, no hepatosplenomegaly. Bowel sounds present to all four quadrants. No high pitch or tinkling sounds, resonant to percussion. Extremities: No cyanosis, clubbing, or edema present. Pulses are palpable 2/2. Active ROM to all four extremities. Neuro: Alert and orientated x 4. PERRLA. Cranial nerves 2-12 intact without focal deficit. Skin: Warm, dry, and intact, without rash, erythema, or lesion. Psych: pleasant, cooperative, normal speech, normal affect, no hallucinations, no dysarthia Objective Data Vital Signs Vital Signs: Vital Signs - 24 hr 11/02/24 10:43 11/02/24 12:10 11/02/24 12:11 Temperature 36.3 C L Pulse Rate 108 H 107 H Respiratory Rate 16 Blood Pressure 145/67 H Pulse Oximetry 98 96 Oxygen Delivery Room Air Room Air 11/02/24 12:12 11/02/24 12:47 11/02/24 13:36 Temperature Pulse Rate 110 H 104 H Respiratory Rate 17 29 H 20 Blood Pressure 158/75 H Pulse Oximetry 100 100 99 Oxygen Delivery 11/02/24 14:12 11/02/24 14:15 11/02/24 14:16 Temperature Pulse Rate 110 H 104 H 104 H Respiratory Rate 19 19 19 Blood Pressure 159/69 H Pulse Oximetry 100 99 99 Oxygen Delivery 11/02/24 15:07 11/02/24 15:15 11/02/24 15:16 Temperature Pulse Rate 106 H 98 101 H Respiratory Rate 20 19 19 Blood Pressure 128/56 L Pulse Oximetry 100 Oxygen Delivery 11/02/24 15:46 11/02/24 16:09 11/02/24 16:16 Temperature Pulse Rate 107 H 100 97 Respiratory Rate 20 20 20 Blood Pressure 148/75 H 127/64 118/79 Pulse Oximetry 99 99 100 Oxygen Delivery 11/02/24 16:30 11/02/24 16:31 11/02/24 16:45 Temperature Pulse Rate 99 101 H 100 Respiratory Rate 15 20 18 Blood Pressure 151/70 H Pulse Oximetry 99 100 Oxygen Delivery 11/02/24 16:46 11/02/24 17:00 11/02/24 17:01 Temperature Pulse Rate 100 101 H 97 Respiratory Rate 16 20 18 Blood Pressure 146/70 H 146/69 H Pulse Oximetry 100 100 99 Oxygen Delivery 11/02/24 17:16 11/02/24 18:24 11/02/24 18:30 Temperature Pulse Rate 102 H 96 96 Respiratory Rate 20 16 18 Blood Pressure 154/73 H Pulse Oximetry 99 100 Oxygen Delivery 11/02/24 18:31 11/02/24 21:35 11/02/24 21:51 Temperature 36.2 C L Pulse Rate 98 95 Respiratory Rate 19 18 Blood Pressure 175/70 H 148/55 H Pulse Oximetry 100 99 Oxygen Delivery Room Air 11/03/24 00:59 11/03/24 05:30 11/03/24 05:30 Temperature 36.8 C 36.5 C 36.5 C Pulse Rate 94 101 H 101 H Respiratory Rate 16 16 16 Blood Pressure 147/70 H 167/67 H 167/67 H Pulse Oximetry 97 98 98 Oxygen Delivery Intake/Output Intake/Output: Intake & Output 10/31/24 11/01/24 11/02/24 11/03/24 23:59 23:59 23:59 23:59 Intake Total 1000 450 Balance 1000 450 Meds/Results Medications: Active Medications Generic Name Dose Route Start Last Admin Trade Name Freq PRN Reason Stop Dose Admin Acetaminophen 650 mg 11/02/24 14:02 Acetaminophen 325 Mg Tablet PO Q4H PRN Mild Pain (1-3) or Fever Hydrocodone Bitart/Acetaminophen 1 tab 11/02/24 14:29 Hydrocodone/Acetaminophen (*Crx) 5-325 Mg Tablet PO Q4H PRN Pain Rated 4-6 Amlodipine Besylate 5 mg 11/03/24 09:00 Amlodipine Besylate 5 Mg Tablet PO DAILY [facility] Dextrose 12.5 gm 11/03/24 00:32 Dextrose 50% 25 Gm/50 Ml Syringe IV PUSH PRN PRN Hypoglycemia Protocol Enoxaparin Sodium 40 mg 11/03/24 09:00 Enoxaparin 40 Mg/0.4 Ml Syringe SUB-Q DAILY [facility] Fenofibrate 160 mg 11/03/24 21:00 Fenofibrate 160 Mg Tablet PO QHS [facility] Glucagon 1 mg 11/03/24 00:32 Glucagon For Inj 1 Mg Vial IM PRN PRN Hypoglycemia Protocol Glucose 15 gm 11/03/24 00:32 Glucose Oral Gel 15 Gm Of Glucse In 37.5 Gm Tube PO PRN PRN Hypoglycemia Protocol Hydroxychloroquine Sulfate 300 mg 11/03/24 09:00 Hydroxychloroquine Sulfate 200 Mg Tablet PO BIDWM [facility] Sodium Chloride 1,000 mls @ 75 mls/hr 11/02/24 21:10 11/02/24 21:50 Sodium Chloride 0.45% IV CONT 75 mls/hr .[id number] [facility] Administration Dextrose 1,000 mls @ 100 mls/hr 11/03/24 00:32 Dextrose 5% 1,000 Ml IVPB PRN PRN Hypoglycemia Protocol Ceftriaxone Sodium 1 gm in 50 mls @ 100 mls/hr 11/03/24 10:30 Rocephin 1 Gm/Ns 50 Ml IVPB Q24H [facility] Insulin Aspart 2 - 5 units 11/03/24 08:00 Insulin Aspart (*Bkc) 100 Units/Ml SUB-Q TIDWM [facility] Protocol Insulin Aspart 1 - 2 units 11/03/24 21:00 Insulin Aspart (*Bkc) 100 Units/Ml SUB-Q HS [facility] Protocol Insulin Glargine 11 units 11/03/24 21:00 Insulin Glargine (*Bkc) 100 Units/Ml 0.15 units/kg (11 units) SUB-Q HS [facility] Isosorbide Mononitrate 30 mg 11/03/24 09:00 Isosorbide Mononitrate 30 Mg Tab.Er.24h PO DAILY [facility] Leflunomide 20 mg 11/03/24 09:00 Leflunomide 20 Mg Tablet PO DAILY [facility] Levothyroxine Sodium 75 mcg 11/03/24 06:30 11/03/24 06:00 Levothyroxine Sodium 75 Mcg Tablet PO 75 mcg DAILY@0630 [facility] Administration Losartan Potassium 100 mg 11/03/24 09:00 Losartan Potassium 100 Mg Tablet PO DAILY [facility] Morphine Sulfate 2 mg 11/02/24 14:29 11/02/24 22:01 Morphine Sulfate (*Crx) 2 Mg/Ml Inj IV PUSH 2 mg Q2H PRN Administration Pain Rated 7-10 Pantoprazole Sodium 40 mg 11/03/24 09:00 Pantoprazole 40 Mg Tablet PO Q12HR [facility] Polysaccharide Iron Complex 150 mg 11/03/24 17:00 Polysaccharide Iron Complex 150 Mg Capsule PO BIDWM [facility] Potassium Chloride 20 meq 11/03/24 09:00 Potassium Chloride 20 Meq Er Tablet PO BID [facility] Simvastatin 20 mg 11/03/24 09:00 Simvastatin 20 Mg Tablet PO DAILY [facility] Radiology Results: ITS Impressions Chest X-Ray 11/02/24 11:23 IMPRESSION: Bilateral hyperinflation suggesting COPD No active cardiopulmonary disease Aortic calcification and tortuosity Osteopenia Bilateral glenohumeral osteoarthritis Labs Labs: Laboratory Results - last 24 hr 11/02/24 11/02/24 11/02/24 11:00 13:27 13:54 WBC 33.3 H RBC 4.31 Hgb 8.2 L Hct 26.2 L MCV 60.8 L MCH 19.0 L MCHC 31.3 L RDW 17.3 H Plt Count 291 MPV 10.4 Immature Gran % (Auto) Not Reportable Neut % (Auto) Not Reportable Lymph % (Auto) Not Reportable [place] % (Auto) Not Reportable Eos % (Auto) Not Reportable Baso % (Auto) Not Reportable Lymph # (Auto) Not Reportable [place] # (Auto) Not Reportable Eos # (Auto) Not Reportable Baso # (Auto) Not Reportable Abs Immat Gran (auto) Not Reportable Absolute Neuts (auto) Not Reportable Absolute Nucleated RBC Not Reportable Total Counted 100 Neutrophils % (Manual) 80 H Band Neutrophils % 11 H Lymphocytes % (Manual) 5 L Monocytes % (Manual) 4 Nucleated RBC % Not Reportable Abs Neuts (Manual) 30.30 H Abs Lymphs (Manual) 1.66 Abs Monocytes (Manual) 1.33 H Platelet Estimate Adequate Large Platelets Present Hypochromasia Anisocytosis 1+ Microcytosis Ovalocytes 1+ [place] Cells 2+ Acanthocytes ([place]) Schistocytes Rare PT 14.2 INR 1.1 APTT 24.3 Sodium 116 L* Potassium 3.8 Chloride 86 L Carbon Dioxide 15 L Anion Gap 15 H BUN 6 L Creatinine 0.93 Estim Creat Clear Calc 47 Estimated GFR 59 Glucose 286 H POC Capillary Glucose Calcium 9.2 Total Bilirubin 1.1 AST 21 ALT 26 Alkaline Phosphatase 77 Troponin I < 0.012 < 0.012 Total Protein 7.0 Albumin 4.3 Lipase 74 Urine Color Yellow Urine Appearance Clear Urine pH 5.5 Ur Specific [place] 1.022 Urine Protein Negative Urine Glucose (UA) 3+ H Urine Ketones Trace H Ur Blood (Man) Negative Urine Nitrate Negative Urine Bilirubin Negative Urine Urobilinogen 0.2 Ur Leukocyte Esterase Leukocyte Esterase Rfl Negative Urine RBC Urine WBC Ur Squamous Epith Cells Urine Bacteria Urine Casts Group A Strep (PCR) 11/02/24 11/02/24 11/02/24 15:31 15:31 20:18 WBC RBC Hgb Hct MCV MCH MCHC RDW Plt Count MPV Immature Gran % (Auto) Neut % (Auto) Lymph % (Auto) [place] % (Auto) Eos % (Auto) Baso % (Auto) Lymph # (Auto) [place] # (Auto) Eos # (Auto) Baso # (Auto) Abs Immat Gran (auto) Absolute Neuts (auto) Absolute Nucleated RBC Total Counted Neutrophils % (Manual) Band Neutrophils % Lymphocytes % (Manual) Monocytes % (Manual) Nucleated RBC % Abs Neuts (Manual) Abs Lymphs (Manual) Abs Monocytes (Manual) Platelet Estimate Large Platelets Hypochromasia Anisocytosis Microcytosis Ovalocytes [place] Cells Acanthocytes ([place]) Schistocytes PT INR APTT Sodium 121 L Cancelled Potassium 3.7 Chloride 92 L Carbon Dioxide 20 L Anion Gap 9 BUN 5 L Creatinine 0.94 Estim Creat Clear Calc 46 Estimated GFR 59 Glucose 222 H POC Capillary Glucose Calcium 8.9 Total Bilirubin AST ALT Alkaline Phosphatase Troponin I < 0.012 Total Protein Albumin Lipase Urine Color Urine Appearance Urine pH Ur Specific [place] Urine Protein Urine Glucose (UA) Urine Ketones Ur Blood (Man) Urine Nitrate Urine Bilirubin Urine Urobilinogen Ur Leukocyte Esterase Leukocyte Esterase Rfl Urine RBC Urine WBC Ur Squamous Epith Cells Urine Bacteria Urine Casts Group A Strep (PCR) Not detected 11/03/24 11/03/24 11/03/24 00:54 05:59 08:00 WBC 25.1 H RBC 4.29 Hgb 7.8 L Hct 26.9 L MCV 62.7 L MCH 18.2 L MCHC 29.0 L RDW 18.0 H Plt Count 309 MPV 10.7 H Immature Gran % (Auto) 0.8 H Neut % (Auto) 88.5 H Lymph % (Auto) 4.3 L [place] % (Auto) 6.2 Eos % (Auto) 0.0 Baso % (Auto) 0.2 Lymph # (Auto) 1.07 [place] # (Auto) 1.6 H Eos # (Auto) 0.0 Baso # (Auto) 0.1 Abs Immat Gran (auto) 0.19 H Absolute Neuts (auto) 22.2 H Absolute Nucleated RBC 0.000 Total Counted Neutrophils % (Manual) Band Neutrophils % Lymphocytes % (Manual) Monocytes % (Manual) Nucleated RBC % 0.0 Abs Neuts (Manual) Abs Lymphs (Manual) Abs Monocytes (Manual) Platelet Estimate Adequate Large Platelets Hypochromasia 1+ Anisocytosis 1+ Microcytosis 1+ Ovalocytes 1+ Jonn Cells 1+ Acanthocytes ([place]) 1+ Schistocytes None seen PT INR APTT Sodium 125 L Potassium 3.9 Chloride 95 L Carbon Dioxide 21 L Anion Gap 9 BUN 8 Creatinine 0.84 Estim Creat Clear Calc 51 Estimated GFR > 60 Glucose 159 H POC Capillary Glucose 165 H Calcium 8.7 Total Bilirubin AST ALT Alkaline Phosphatase Troponin I Total Protein Albumin Lipase Urine Color Yellow Urine Appearance Clear Urine pH 6.0 Ur Specific [place] 1.018 Urine Protein 1+ H Urine Glucose (UA) 3+ H Urine Ketones Trace H Ur Blood (Man) Trace Urine Nitrate Negative Urine Bilirubin Negative Urine Urobilinogen 0.2 Ur Leukocyte Esterase 1+ H Leukocyte Esterase Rfl Urine RBC 0-2 Urine WBC 6-10 H Ur Squamous Epith Cells Few Urine Bacteria 1+ H Urine Casts 0-2 Group A Strep (PCR) Quality VTE Prophylaxis VTE prophylaxis: mechanical ordered and pharmacologic ordered
[2024-11-03 11:10] VITALS: BP 150/73; PULSE 95; RESP 16; TEMP 36.9; O2SAT 99
[2024-11-03] MEDS: LEFLUNOMIDE 20 MG TABLET PO (11:17)
[2024-11-03] MEDS: amLODIPine BESYLATE 5 MG TABLET PO (11:17)
[2024-11-03] MEDS: ISOSORBIDE MONONITRATE 30 MG TAB.ER.24H PO (11:17)
[2024-11-03] MEDS: HYDROXYCHLOROQUINE SULFATE 200 MG TABLET 300 MG PO (11:17)
[2024-11-03] MEDS: LOSARTAN POTASSIUM 100 MG TABLET PO (11:17)
[2024-11-03] MEDS: PANTOPRAZOLE 40 MG TABLET PO ×2 (11:17→21:08)
[2024-11-03] MEDS: POTASSIUM CHLORIDE 20 MEQ ER TABLET PO (11:18)
[2024-11-03] MEDS: SIMVASTATIN 20 MG TABLET PO (11:18)
[2024-11-03] MEDS: ENOXAPARIN 40 MG/0.4 ML SYRINGE SUB-Q (11:18)
[2024-11-03 12:01] LABS: Glucose Point of Care 203 mg/dl (65-105)
[2024-11-03] MEDS: DESMOPRESSIN ACETATE 4 MCG/ML AMP 2 MCG SUB-Q (12:27)
[2024-11-03] MEDS: MORPHINE SULFATE (*CRX) 2 MG/ML INJ IV PUSH ×2 (12:28→19:03)
[2024-11-03] MEDS: DEXTROSE 5% IN WATER 500 ML 225 ML IV CONT (12:33)
[2024-11-03] MEDS: INSULIN ASPART (*BKC) 100 UNITS/ML SUB-Q (12:34)
--- NOTE | 2024-11-03 12:42 | P.CONNP_ITS ---
Assessment and Plan Assessment and plan (1) Hyponatremia: Code(s): E87.1 - Hypo-osmolality and hyponatremia Status: Acute Assessment and Plan: The patient has a low sodium. We do not know how long this has been low, however she does not seem to have very many symptoms from the sodium of 116 so I suggest this has been going on for a while. The last time we had any blood work done was in 2015 and her sodium was low that time but that was the only time it was low before this in our system. Urinalysis shows a specific gravity of 1.018 which makes beer drinkers potomania less likely. The patient is on hydrochlorothiazide and so could have hyponatremia from this. She also takes pain pills at home which, if narcotics, could contribute to the hyponatremia as well. Omeprazole can contribute to low sodium as well. There are other causes of hyponatremia including: [employer] disease. The patient has no symptoms Pulmonary disease: The patient does have a nodule in her lung which was found on a CT scan in 2022 and the repeat in 2019 for was stable. PET scan was not positive for cancer either. Cancer: No history of cancer in this patient. Medications: No SSRIs but, as above, she takes hydrochlorothiazide, pain pills, and omeprazole. Hormones: Will check a cortisol level as well as a TSH The hydrochlorothiazide was discontinued. She is on hydrocodone. She has such significant pain we will just work around this. She is on pantoprazole. She has some GI symptoms. Consider changing this to famotidine down the line if sodium continues to be a problem. She was placed on a fluid restriction and given some IV fluids because there was worry about dehydration. The sodium level came up at a reasonable rate at 1st but this morning the sodium was just barely a higher than the recommended change in sodium and so I will give D5W plus DDAVP to bring the sodium level down a little bit. Will check osmolalities, TSH, cortisol, urine sodium, urine urea nitrogen. Will repeat the sodium later this afternoon to see where we are. (2) Hypothyroidism: Code(s): E03.9 - Hypothyroidism, unspecified Status: Acute Assessment and Plan: Check a TSH (3) Leukocytosis: Code(s): D72.829 - Elevated white blood cell count, unspecified Status: Acute Assessment and Plan: Evaluation is underway. (4) Arthritis: Code(s): M19.90 - Unspecified osteoarthritis, unspecified site Status: Acute Assessment and Plan: Possibly rheumatoid ? (5) Diabetes: Code(s): E11.9 - Type 2 diabetes mellitus without complications Status: Acute Assessment and Plan: On Accu-Cheks and sliding-scale insulin. Management per hospitalists. (6) Hypertension: Code(s): I10 - Essential (primary) hypertension Status: Acute Assessment and Plan: Systolic 140s to 170s. Will give an extra dose of amlodipine and increase dose to 10 History of Present Illness Reason for Consult Consult date: 11/03/24 Chief Complaint Chief complaint: hyponatremia, leukocytosis History of Present Illness Narrative: Kianna is a very pleasant 74-year-old lady who has multiple medical problems including arthritis (Kianna thinks it is rheumatoid), diabetes, hypertension, hyperlipidemia. The patient has been having a lot of trouble with her arthritis. She sees a rn palliative who was giving her medications for it and it was under pretty good control until about 5 days ago when it started getting worse. This continued to happen. She did not call her rn palliative but did call her primary care physician to let him know that she was going to the emergency room. She did not adjust any of her medications to try to help the flare. In the ER she was seen and found to have a sodium of 116 so she was admitted. The patient does say she drinks some fluid. She does take hydrochlorothiazide. She does take pain pills for her pain (but does not know the name of these) and takes omeprazole for GERD. She has no history of cancer, lung disease, or [employer] issues. She does take levothyroxine. Review of Systems 2 Constitutional: Constitutional: Reports no additional constitutional complaints Eyes: Eyes: Reports no additional eye complaints ENT: Reports system reviewed and no additional complaints, except as documented Cardiovascular: Cardiovascular: Reports no additional cardiovascular complaints Respiratory: Respiratory: Reports no additional respiratory complaints Gastrointestinal: Gastrointestinal: Reports no additional gastrointestinal complaints Genitourinary: Genitourinary: Reports no additional female genitourinary complaints Musculoskeletal: Musculoskeletal: Reports no additional musculoskeletal complaints Integumentary/Breasts: Skin/Breast: Reports system reviewed and no additional complaints, except as docu Neurologic: Reports system reviewed and no additional complaints, except as documented Psychiatric: Psychiatric: Reports no additional psychiatric complaints Endocrine: Endocrine: Reports no additional endocrine complaints [facility] Past Medical History Medical History Arthritis Diabetes Hyperlipidemia Hypertension Social History Social History Smoking packs per day: 1 Smoking cigarettes per day: 20.0 Smoking status: Former smoker Tobacco type: cigarettes Alcohol intake: current Drinks per week: 1 Substance use: current Substance use type: marijuana Other substance usage details: every day marijuana Last use: 11/02/2024 Do You Feel Safe in your Home?: Yes Lack of Transportation: No Lack of Food: Never True Current Housing: I Have Housing Concerned About Future Housing: No Difficulty Paying Gas/Electric Bills: No Difficulty Paying for Meds: No Currently Unemployed: No Education: Grade School Difficulty w/ Childcare or Family Care: No Spiritual care concerns: No Meds Home Medications and Allergies Home Medications ?Medication ?Instructions ?Recorded ?Confirmed ?Type amlodipine 5 mg tablet 5 mg PO DAILY 11/02/24 11/02/24 History ergocalciferol (vitamin D2) 1,250 1,250 mcg PO DAILY 11/02/24 11/02/24 History mcg (50,000 unit) capsule etanercept 50 mg/mL (1 mL) 50 mg subcut WEEKLY 11/02/24 11/02/24 History subcutaneous pen injector (Enbrel SureBryanick) fenofibrate 160 mg tablet 160 mg PO QHS 11/02/24 11/02/24 History glipizide 10 mg tablet, extended 20 mg PO DAILY 11/02/24 11/02/24 History release 24 hr hydrochlorothiazide 25 mg tablet 25 mg PO DAILY 11/02/24 11/02/24 History hydroxychloroquine 200 mg tablet 310 mg PO BID 11/02/24 11/02/24 History isosorbide mononitrate 30 mg 30 mg PO DAILY 11/02/24 11/02/24 History tablet,extended release 24 hr leflunomide 20 mg tablet (Arava) 20 mg PO DAILY 11/02/24 11/02/24 History levothyroxine 75 mcg tablet 75 mcg PO DAILY 11/02/24 11/02/24 History losartan 100 mg tablet 100 mg PO DAILY 11/02/24 11/02/24 History metformin 1,000 mg tablet 1,000 mg PO BID 11/02/24 11/02/24 History omeprazole 40 mg capsule,delayed 40 mg PO DAILY 11/02/24 11/02/24 History release potassium chloride 20 mEq 20 meq PO BID 11/02/24 11/02/24 History tablet,extended release (K-Tab) simvastatin 20 mg tablet 20 mg PO DAILY 11/02/24 11/02/24 History sitagliptin phosphate 100 mg 100 mg PO DAILY 11/02/24 11/02/24 History tablet (Januvia) tirzepatide 5 mg/0.5 mL 5 mg subcut WEEKLY 11/02/24 11/02/24 History subcutaneous pen injector (Milad) Allergies Allergy/AdvReac Type Severity Reaction Status Date / Time codeine AdvReac Unknown Nausea and Verified 11/02/24 23:35 Vomiting Vital Signs Vital Signs - 24 hr 11/02/24 12:47 11/02/24 13:36 11/02/24 14:12 Temperature Pulse Rate 110 H 104 H 110 H Respiratory Rate 29 H 20 19 Blood Pressure 158/75 H Pulse Oximetry 100 99 100 Oxygen Delivery 11/02/24 14:15 11/02/24 14:16 11/02/24 15:07 Temperature Pulse Rate 104 H 104 H 106 H Respiratory Rate 19 19 20 Blood Pressure 159/69 H Pulse Oximetry 99 99 Oxygen Delivery 11/02/24 15:15 11/02/24 15:16 11/02/24 15:46 Temperature Pulse Rate 98 101 H 107 H Respiratory Rate 19 19 20 Blood Pressure 128/56 L 148/75 H Pulse Oximetry 100 99 Oxygen Delivery 11/02/24 16:09 11/02/24 16:16 11/02/24 16:30 Temperature Pulse Rate 100 97 99 Respiratory Rate 20 20 15 Blood Pressure 127/64 118/79 151/70 H Pulse Oximetry 99 100 99 Oxygen Delivery 11/02/24 16:31 11/02/24 16:45 11/02/24 16:46 Temperature Pulse Rate 101 H 100 100 Respiratory Rate 20 18 16 Blood Pressure 146/70 H Pulse Oximetry 100 100 Oxygen Delivery 11/02/24 17:00 11/02/24 17:01 11/02/24 17:16 Temperature Pulse Rate 101 H 97 102 H Respiratory Rate 20 18 20 Blood Pressure 146/69 H 154/73 H Pulse Oximetry 100 99 99 Oxygen Delivery 11/02/24 18:24 11/02/24 18:30 11/02/24 18:31 Temperature Pulse Rate 96 96 98 Respiratory Rate 16 18 19 Blood Pressure 175/70 H Pulse Oximetry 100 100 Oxygen Delivery 11/02/24 21:35 11/02/24 21:51 11/03/24 00:59 Temperature 97.2 F L 98.2 F Pulse Rate 95 94 Respiratory Rate 18 16 Blood Pressure 148/55 H 147/70 H Pulse Oximetry 99 97 Oxygen Delivery Room Air 11/03/24 05:30 11/03/24 05:30 11/03/24 11:10 Temperature 97.7 F 97.7 F 98.4 F Pulse Rate 101 H 101 H 95 Respiratory Rate 16 16 16 Blood Pressure 167/67 H 167/67 H 150/73 H Pulse Oximetry 98 98 99 Oxygen Delivery Exam 2 Narrative: Exam Narrative: Well developed well-nourished female in no acute distress Skin is warm and dry without rash Head normocephalic atraumatic Eyes normal sclerae and conjunctivae Mouth normal lips teeth and gums Neck no nodes no thyromegaly no carotid bruits Axillae no nodes Back no CVA tenderness Lungs symmetric and clear to auscultation Heart regular rate and rhythm without rub or gallop Abdomen bowel sounds positive soft nontender, no HSM, masses, or bruits. Extremities no cyanosis, clubbing, or edema Pulses 2+ equal in radial arteries Psychological not anxious or depressed Neuro alert and oriented x3 motor 5/5 cranial nerves 2-12 intact reflexes 2+ and equal in the biceps and patellar tendons cerebellar normal rapid alternating movements Results Lab Results 11/03/24 05:59 11/03/24 05:59 Lab results: Most recent lab results Calcium 8.7 mg/dL (8.4-10.2) 11/03/24 05:59
[2024-11-03 14:27] LABS: Creatinine Urine 60.8 mg/dL; Total Protein Urine Random 49 mg/dL; Ur Ttl Prot Creatinine Ratio 0.81 mg/mg (0-0.20)
[2024-11-03 14:29] LABS: Urea Random Urine 396 MG/DL
[2024-11-03 14:33] LABS: Sodium Urine Random < 5 meq/L
[2024-11-03 16:24] LABS: Sodium 121 mmol/L (137-145)
[2024-11-03 16:27] VITALS: BP 137/68; PULSE 85; RESP 16; TEMP 36.9; O2SAT 100
[2024-11-03 17:10] LABS: Glucose Point of Care 157 mg/dl (65-105)
[2024-11-03] MEDS: ONDANSETRON HCL ODT 4 MG TABLET PO (17:24)
[2024-11-03 21:05] VITALS: BP 137/59; PULSE 82; RESP 18; TEMP 36.4; O2SAT 100
[2024-11-03] MEDS: FENOFIBRATE 160 MG TABLET PO (21:08)
[2024-11-03 21:45] LABS: Glucose Point of Care 122 mg/dl (65-105)
[2024-11-03] MEDS: INSULIN GLARGINE (*BKC) 100 UNITS/ML 11 UNITS SUB-Q (21:49)
[2024-11-04] VITALS (9 sets, daily range): BP systolic 133–180; BP diastolic 62–85; PULSE 79–96; RESP 14–17; TEMP 36–36.7; O2SAT 98–100
[2024-11-04] MEDS: ONDANSETRON HCL ODT 4 MG TABLET PO (05:24)
[2024-11-04] MEDS: HYDROcodone/acetaminophen (*CRX) 5-325 MG TABLET 1 TAB PO ×3 (05:24→21:00)
[2024-11-04] MEDS: LEVOTHYROXINE SODIUM 75 MCG TABLET PO (05:24)
[2024-11-04] MEDS: MORPHINE SULFATE (*CRX) 2 MG/ML INJ IV PUSH ×3 (06:00→08:56)
[2024-11-04 06:41] LABS: Hematocrit 22.6 % (37.0-47.0); Mean Corpuscular HGB Conc 29.6 g/dl (32-36); Mean Corpuscular Hemoglobin 18.4 pg (26-34); Mean Corpuscular Volume 62.1 fl (80-100); Mean Platelet Volume 10.3 fl (7.4-10.4); Platelet Count Result 232 k/mm3 (150-375); Red Blood Count 3.64 M/mm3 (4.2-5.4); Red Cell Distribution Width 17.5 % (11.5-14.5); White Blood Count 11.7 K/mm3 (4.5-10.0)
[2024-11-04 06:49] LABS: Hemoglobin 6.7 g/dL (12.0-15.0)
[2024-11-04 06:57] LABS: Alanine Aminotransferase 14 U/L (6-35); Albumin Level 3.1 g/dL (3.5-5.1); Alkaline Phosphatase 64 U/L (38-126); Anion Gap 4 mmol/L (4-12); Aspartate Amino Transferase 20 U/L (14-36); Bilirubin,Total 0.6 mg/dL (0.2-1.3); Blood Urea Nitrogen 8 mg/dL (7-17); Carbon Dioxide 20 mmol/L (22-30); Chloride 96 mmol/L (98-107); Estimated CRCL calculation 56 ml/min; Estimated Glomerular Filt Rate > 60; Glucose 111 mg/dL (65-110); Potassium 3.7 mmol/L (3.4-5.0); Sodium 120 mmol/L (137-145)
--- NOTE | 2024-11-04 07:16 | PM.IMPN ---
Progress Note: A&P Assessment and Plan (1) Acute hyponatremia: Code(s): E87.1 - Hypo-osmolality and hyponatremia Status: Acute Assessment and Plan: 11/04: - Nephrology consulted, received ddavp and d5 yesterday to slow trend. - Stable sodium (120 this am), check q12h, then likely daily. - Presumed etiology likely hctz, may be weeks before normalization. - Free water restriction in place. (2) Body aches: Code(s): R52 - Pain, unspecified Status: Acute Assessment and Plan: Cont. current, intermittently controlled. (3) Leukocytosis: Code(s): D72.829 - Elevated white blood cell count, unspecified Status: Acute Assessment and Plan: 11/04/24 - Undetermined etiology, markedly improved today with near normalization. Afebrile. - Cultures pending. - Cont. ceftriaxone. (4) Hypertension: Code(s): I10 - Essential (primary) hypertension Status: Acute Assessment and Plan: 11/04/24: - Elevated bp this am, will trend, consider uptitrating norvasc if remains high. (5) Diabetes: Code(s): E11.9 - Type 2 diabetes mellitus without complications Status: Acute Assessment and Plan: 11/04/24: - Generally within glycemic targets on current therapies. - Cont. Accu-Cheks a.c. HS with corrective insulin. - Diabetic diet. - Holding glipizide, metformin. (6) Arthritis: Code(s): M19.90 - Unspecified osteoarthritis, unspecified site Status: Acute Assessment and Plan: 11/04/24: - Encouraged to request prns when having pain. Has had more pain in the hips this am. 11/03/24 Stable. Continue hydrochloroquine and Arava (7) Hypothyroidism: Code(s): E03.9 - Hypothyroidism, unspecified Status: Acute Assessment and Plan: 11/04/24: TSH 1.7, Continue Synthroid (8) Microcytic anemia: Code(s): D50.9 - Iron deficiency anemia, unspecified Status: Acute Assessment and Plan: 11/04/24: - Anemic on presentation with hgb 8.2, steadily downtrending, now at 6.7. - Type and screen, transfuse 1 unit prbc. - check ferritin, tibc/iron/sat and fobt. - Consider GI consultation pending fobt results. - Hold lovenox. Plan 11/04/24: - Continue current management, appreciate nephrology recommendations. Sodium to q12h recheck. - Further workup anemia. Repeat h/h this afternoon. 11/03/2024 Will continue current treatment. Monitor cbc, cmp and cultures. Code status full DVT prophylaxis ordered Time Spent With Patient Time with patient: Greater than 35 minutes Subjective Date/time seen: 11/04/24 07:16 Interval history: Kianna states her hips are more painful today - similar to her normal arthritis, but worsened this am. Poor appetite. Review of Systems Review of Systems: All systems reviewed & are unremarkable except as noted in HPI and below Exam Narrative: GENERAL APPEARANCE: Appears to be in no acute distress. HEAD: normocephalic atraumatic EYES: PERRL, EOMI. Vision grossly intact. ENT: Hearing grossly intact, no nasal discharge NECK: Neck supple, trachea midline. CARDIAC: Normal S1/S2. Rhythm is regular. No murmurs, rubs, or gallops. No cyanosis or pallor. Extremities are warm and well perfused. LUNGS: Clear to auscultation without rales, rhonchi, wheezing or diminished breath sounds. Respirations even and unlabored. ABDOMEN: BS positive x 4 quadrants. Soft, nondistended, nontender. No guarding or rebound. MSK: No joint tenderness/swelling, fair strength in all extremities. PERIPHERAL VASCULAR: Peripheral pulses palpable. Normal perfusion, cap refill <2 seconds. No edema. NEURO: Follows commands. No focal deficits. SKIN: [place] without lesions or eruptions. PSYCH: Stable, no paranoia or delusional thinking. Objective Data Vital Signs Vital Signs: Vital Signs - 24 hr 11/03/24 11:10 11/03/24 16:27 11/03/24 21:05 Temperature 98.4 F 98.4 F Pulse Rate 95 85 Respiratory Rate 16 16 Blood Pressure 150/73 H 137/68 Pulse Oximetry 99 100 100 Oxygen Delivery Room Air 11/03/24 21:05 11/04/24 00:00 11/04/24 04:00 Temperature 97.6 F 97.0 F L 96.8 F L Pulse Rate 82 84 80 Respiratory Rate 18 14 14 Blood Pressure 137/59 L 133/62 170/79 H Pulse Oximetry 100 98 99 Oxygen Delivery Intake/Output Intake/Output: Intake & Output 11/01/24 11/02/24 11/03/24 11/04/24 23:59 23:59 23:59 23:59 Intake Total 1000 1430 500 Balance 1000 1430 500 Meds/Results Medications: Active Medications Generic Name Dose Route Start Last Admin Trade Name Freq PRN Reason Stop Dose Admin Acetaminophen 650 mg 11/02/24 14:02 Acetaminophen 325 Mg Tablet PO Q4H PRN Mild Pain (1-3) or Fever Hydrocodone Bitart/Acetaminophen 1 tab 11/02/24 14:29 11/04/24 05:24 Hydrocodone/Acetaminophen (*Crx) 5-325 Mg Tablet PO 1 tab Q4H PRN Administration Pain Rated 4-6 Amlodipine Besylate 5 mg 11/03/24 09:00 11/03/24 11:17 Amlodipine Besylate 5 Mg Tablet PO 5 mg DAILY ROXANNE Administration Dextrose 12.5 gm 11/03/24 00:32 Dextrose 50% 25 Gm/50 Ml Syringe IV PUSH PRN PRN Hypoglycemia Protocol Enoxaparin Sodium 40 mg 11/03/24 09:00 11/03/24 11:18 Enoxaparin 40 Mg/0.4 Ml Syringe SUB-Q 40 mg DAILY ROXANNE Administration Fenofibrate 160 mg 11/03/24 21:00 11/03/24 21:08 Fenofibrate 160 Mg Tablet PO 160 mg QHS ROXANNE Administration Glucagon 1 mg 11/03/24 00:32 Glucagon For Inj 1 Mg Vial IM PRN PRN Hypoglycemia Protocol Glucose 15 gm 11/03/24 00:32 Glucose Oral Gel 15 Gm Of Glucse In 37.5 Gm Tube PO PRN PRN Hypoglycemia Protocol Hydroxychloroquine Sulfate 300 mg 11/03/24 09:00 11/03/24 19:01 Hydroxychloroquine Sulfate 200 Mg Tablet PO Not Given BIDWM ROXANNE Dextrose 1,000 mls @ 100 mls/hr 11/03/24 00:32 Dextrose 5% 1,000 Ml IVPB PRN PRN Hypoglycemia Protocol Ceftriaxone Sodium 1 gm in 50 mls @ 100 mls/hr 11/03/24 10:30 11/03/24 11:45 Rocephin 1 Gm/Ns 50 Ml IVPB Infused QAM ROXANNE Infusion Sodium Chloride 250 mls @ 30 mls/hr 11/04/24 07:03 Normal Saline Iv IV CONT 11/04/24 15:22 .Q8H20M STA Insulin Aspart 2 - 5 units 11/03/24 08:00 11/03/24 17:24 Insulin Aspart (*Bkc) 100 Units/Ml SUB-Q Not Given TIDWM [facility] Protocol Insulin Aspart 1 - 2 units 11/03/24 21:00 11/04/24 00:27 Insulin Aspart (*Bkc) 100 Units/Ml SUB-Q Not Given HS [facility] Protocol Insulin Glargine 11 units 11/03/24 21:00 11/03/24 21:49 Insulin Glargine (*Bkc) 100 Units/Ml 0.15 units/kg (11 units) 11 units SUB-Q Administration HS ROXANNE Isosorbide Mononitrate 30 mg 11/03/24 09:00 11/03/24 11:17 Isosorbide Mononitrate 30 Mg Tab.Er.24h PO 30 mg DAILY ROXANNE Administration Leflunomide 20 mg 11/03/24 09:00 11/03/24 11:17 Leflunomide 20 Mg Tablet PO 20 mg DAILY ROXANNE Administration Levothyroxine Sodium 75 mcg 11/03/24 06:30 11/04/24 05:24 Levothyroxine Sodium 75 Mcg Tablet PO 75 mcg DAILY@0630 ROXANNE Administration Losartan Potassium 100 mg 11/03/24 09:00 11/03/24 11:17 Losartan Potassium 100 Mg Tablet PO 100 mg DAILY ROXANNE Administration Morphine Sulfate 2 mg 11/02/24 14:29 11/04/24 06:00 Morphine Sulfate (*Crx) 2 Mg/Ml Inj IV PUSH 2 mg Q2H PRN Administration Pain Rated 7-10 Ondansetron HCl 4 mg 11/04/24 06:03 Ondansetron Inj 4 Mg/2 Ml Vial IV PUSH Q6H PRN Nausea And Vomiting Pantoprazole Sodium 40 mg 11/03/24 09:00 11/03/24 21:08 Pantoprazole 40 Mg Tablet PO 40 mg Q12HR ROXANNE Administration Polysaccharide Iron Complex 150 mg 11/03/24 17:00 11/03/24 19:01 Polysaccharide Iron Complex 150 Mg Capsule PO Not Given BIDWM ROXANNE Potassium Chloride 20 meq 11/03/24 09:00 11/03/24 19:01 Potassium Chloride 20 Meq Er Tablet PO Not Given BID ROXANNE Simvastatin 20 mg 11/03/24 09:00 11/03/24 11:18 Simvastatin 20 Mg Tablet PO 20 mg DAILY ROXANNE Administration Radiology Results: ITS Impressions Chest X-Ray 11/02/24 11:23 IMPRESSION: Bilateral hyperinflation suggesting COPD No active cardiopulmonary disease Aortic calcification and tortuosity Osteopenia Bilateral glenohumeral osteoarthritis Labs Labs: Laboratory Results - last 24 hr 11/03/24 11/03/24 11/03/24 05:56 05:59 08:00 WBC RBC Hgb Hct MCV MCH MCHC RDW Plt Count MPV Platelet Estimate Adequate Hypochromasia 1+ Anisocytosis 1+ Microcytosis 1+ Ovalocytes 1+ [place] Cells 1+ Acanthocytes (Spur) 1+ Schistocytes None seen Sodium Potassium Chloride Carbon Dioxide Anion Gap BUN Creatinine Estim Creat Clear Calc Estimated GFR Glucose POC Capillary Glucose 165 H Calcium Total Bilirubin AST ALT Alkaline Phosphatase Total Protein Albumin TSH (Reflex) 1.700 Random Cortisol 47.40 U Random Total Protein Ur Random Sodium Ur Random Urea Urine Creatinine Protein/Creat Ratio 2 11/03/24 11/03/24 11/03/24 11:58 13:51 16:09 WBC RBC Hgb Hct MCV MCH MCHC RDW Plt Count MPV Platelet Estimate Hypochromasia Anisocytosis Microcytosis Ovalocytes [place] Cells Acanthocytes (Spur) Schistocytes Sodium 121 L Potassium Chloride Carbon Dioxide Anion Gap BUN Creatinine Estim Creat Clear Calc Estimated GFR Glucose POC Capillary Glucose 203 H Calcium Total Bilirubin AST ALT Alkaline Phosphatase Total Protein Albumin TSH (Reflex) Random Cortisol U Random Total Protein 49 Ur Random Sodium < 5 Ur Random Urea 396 Urine Creatinine 60.8 Protein/Creat Ratio 2 0.81 H 11/03/24 11/03/24 11/04/24 17:08 21:20 06:10 WBC 11.7 H RBC 3.64 L Hgb 6.7 L* Hct 22.6 L MCV 62.1 L MCH 18.4 L MCHC 29.6 L RDW 17.5 H Plt Count 232 MPV 10.3 Platelet Estimate Hypochromasia Anisocytosis Microcytosis Ovalocytes Jonn Cells Acanthocytes (Spur) Schistocytes Sodium 120 L Potassium 3.7 Chloride 96 L Carbon Dioxide 20 L Anion Gap 4 BUN 8 Creatinine 0.77 Estim Creat Clear Calc 56 Estimated GFR > 60 Glucose 111 H POC Capillary Glucose 157 H 122 H Calcium 8.0 L Total Bilirubin 0.6 AST 20 ALT 14 Alkaline Phosphatase 64 Total Protein 6.0 L Albumin 3.1 L TSH (Reflex) Random Cortisol U Random Total Protein Ur Random Sodium Ur Random Urea Urine Creatinine Protein/Creat Ratio 2 Quality VTE Prophylaxis VTE prophylaxis: mechanical ordered If No VTE Prophylaxis Answer both mechanical and pharmacologic: Reason no pharmacologic proph: medical contraindication Hospitalist MIPS Advance Care Plan I have confirmed that the patient's Advanced Care Plan is present, code status is documented, or surrogate decision maker is listed in patient medical record.: Yes Medication Reconciliation I have utilized all available resources to obtain, update and review the patients current medications (includes all prescriptions, OTC, herbals, cannabis, and nutritional supplements).: Yes
[2024-11-04 08:23] LABS: Glucose Point of Care 158 mg/dl (65-105)
[2024-11-04] MEDS: POLYSACCHARIDE IRON COMPLEX 150 MG CAPSULE PO ×2 (08:55→16:10)
[2024-11-04] MEDS: ISOSORBIDE MONONITRATE 30 MG TAB.ER.24H PO (08:55)
[2024-11-04] MEDS: LOSARTAN POTASSIUM 100 MG TABLET PO (08:55)
[2024-11-04] MEDS: PANTOPRAZOLE 40 MG TABLET PO ×2 (08:55→21:00)
[2024-11-04] MEDS: HYDROXYCHLOROQUINE SULFATE 200 MG TABLET 300 MG PO ×2 (08:55→16:09)
[2024-11-04] MEDS: POTASSIUM CHLORIDE 20 MEQ ER TABLET PO ×2 (08:55→16:10)
[2024-11-04] MEDS: LEFLUNOMIDE 20 MG TABLET PO (08:55)
[2024-11-04] MEDS: SIMVASTATIN 20 MG TABLET PO (08:55)
[2024-11-04] MEDS: amLODIPine BESYLATE 5 MG TABLET PO (08:55)
[2024-11-04] MEDS: SODIUM CHLORIDE 0.9% IV 250 ML 30 ML IV CONT (10:32)
--- NOTE | 2024-11-04 11:31 | P.PNNP_ITS ---
Progress Note: A&P Assessment and Plan (1) Hyponatremia: Code(s): E87.1 - Hypo-osmolality and hyponatremia Status: Acute Assessment and Plan: * acute on chronic * from review of outside records, baseline sodium runs around 129 - 136mmol/L since 2019 * last blood work in August 2024 -- sdoium was 129mmol/L * appears relatively asymptomatic * risk factors for low sodium: * prerenal factors (poor oral intake) * HCTZ use * chronic pain * PPI use * known thyroid disease * evaluation to date noted: * TSH and cortisol okay * no evidence of BLUING OVEN TENDER or lung disease * SPEP/UPEP and serum/urine osmo pending * urine electrolytes prerenal * s/p DDAVP and D5W due to concerns for overcorrection * currently on fluid restriction * follow trend of repeat sodium levels (2) Hypertension: Code(s): I10 - Essential (primary) hypertension Status: Chronic Assessment and Plan: * reasonable control * follow trend of hemodynamics (3) Diabetes: Code(s): E11.9 - Type 2 diabetes mellitus without complications Status: Acute Assessment and Plan: * follow accu-cheks * glycemic control per hospitalist Will continue to follow. Subjective Date/time seen: 11/04/24 11:31 Interval history: Follow-up for acute on chronic hyponatremia. MAjor complaint is that of pain in her joints and hips which is similar to arthritis pain; appetite and oral intake remain poor; sodum relatively stable at this time; no other issues/events overnight or earlier this morning. Exam Narrative: General: elderly but WD/WN female in NAD Heart: normal S1 and S2; no rub Lungs: clear to auscultation Abdomen: soft, nontender, nondistended, positive bowel sounds Extremities: no cyanosis or clubbing; no edema Skin: warm and dry Objective Data Vital Signs Vital Signs: Vital Signs Temp Pulse Resp BP Pulse Ox O2 Del Method 11/04/24 11:30 97.6 F 92 16 153/67 H 99 11/04/24 10:33 97.6 F 94 16 172/79 H 99 11/04/24 10:17 97.6 F 93 16 160/62 H 99 11/04/24 08:55 Room Air 11/04/24 07:47 97.8 F 96 17 180/85 H 100 11/04/24 04:00 96.8 F L 80 14 170/79 H 99 11/04/24 00:00 97.0 F L 84 14 133/62 98 11/03/24 21:05 97.6 F 82 18 137/59 L 100 11/03/24 21:05 100 Room Air Intake/Output Intake/Output: Intake & Output 11/01/24 11/02/24 11/03/24 11/04/24 23:59 23:59 23:59 23:59 Intake Total 1000 1430 1979 Balance 1000 1430 1979 Meds/Results Medications: Active Medications Generic Name Dose Route Start Last Admin Trade Name Freq PRN Reason Stop Dose Admin Acetaminophen 650 mg 11/02/24 14:02 Acetaminophen 325 Mg Tablet PO Q4H PRN Mild Pain (1-3) or Fever Hydrocodone Bitart/Acetaminophen 1 tab 11/02/24 14:29 11/04/24 16:09 Hydrocodone/Acetaminophen (*Crx) 5-325 Mg Tablet PO 1 tab Q4H PRN Administration Pain Rated 4-6 Amlodipine Besylate 5 mg 11/03/24 09:00 11/04/24 08:55 Amlodipine Besylate 5 Mg Tablet PO 5 mg DAILY ROXANNE Administration Dextrose 12.5 gm 11/03/24 00:32 Dextrose 50% 25 Gm/50 Ml Syringe IV PUSH PRN PRN Hypoglycemia Protocol Fenofibrate 160 mg 11/03/24 21:00 11/03/24 21:08 Fenofibrate 160 Mg Tablet PO 160 mg QHS ROXANNE Administration Glucagon 1 mg 11/03/24 00:32 Glucagon For Inj 1 Mg Vial IM PRN PRN Hypoglycemia Protocol Glucose 15 gm 11/03/24 00:32 Glucose Oral Gel 15 Gm Of Glucse In 37.5 Gm Tube PO PRN PRN Hypoglycemia Protocol Hydroxychloroquine Sulfate 300 mg 11/03/24 09:00 11/04/24 16:09 Hydroxychloroquine Sulfate 200 Mg Tablet PO 300 mg BIDWM ROX[facility]NE Administration Dextrose 1,000 mls @ 100 mls/hr 11/03/24 00:32 Dextrose 5% 1,000 Ml IVPB PRN PRN Hypoglycemia Protocol Ceftriaxone Sodium 1 gm in 50 mls @ 100 mls/hr 11/03/24 10:30 11/04/24 09:26 Rocephin 1 Gm/Ns 50 Ml IVPB Infused QAM ROX[facility]NE Infusion Insulin Aspart 2 - 5 units 11/03/24 08:00 11/04/24 17:52 Insulin Aspart (*Bkc) 100 Units/Ml SUB-Q 2 units TIDWM ROX[facility]NE Administration Protocol Insulin Aspart 1 - 2 units 11/03/24 21:00 11/04/24 00:27 Insulin Aspart (*Bkc) 100 Units/Ml SUB-Q Not Given HS [facility] Protocol Insulin Glargine 11 units 11/03/24 21:00 11/03/24 21:49 Insulin Glargine (*Bkc) 100 Units/Ml 0.15 units/kg (11 units) 11 units SUB-Q Administration HS [facility] Isosorbide Mononitrate 30 mg 11/03/24 09:00 11/04/24 08:55 Isosorbide Mononitrate 30 Mg Tab.Er.24h PO 30 mg DAILY ROXANNE Administration Leflunomide 20 mg 11/03/24 09:00 11/04/24 08:55 Leflunomide 20 Mg Tablet PO 20 mg DAILY ROX[facility]NE Administration Levothyroxine Sodium 75 mcg 11/03/24 06:30 11/04/24 05:24 Levothyroxine Sodium 75 Mcg Tablet PO 75 mcg DAILY@0630 ROX[facility]NE Administration Losartan Potassium 100 mg 11/03/24 09:00 11/04/24 08:55 Losartan Potassium 100 Mg Tablet PO 100 mg DAILY ROX[facility]NE Administration Morphine Sulfate 2 mg 11/02/24 14:29 11/04/24 08:56 Morphine Sulfate (*Crx) 2 Mg/Ml Inj IV PUSH 2 mg Q2H PRN Administration Pain Rated 7-10 Ondansetron HCl 4 mg 11/04/24 06:03 Ondansetron Inj 4 Mg/2 Ml Vial IV PUSH Q6H PRN Nausea And Vomiting Pantoprazole Sodium 40 mg 11/03/24 09:00 11/04/24 08:55 Pantoprazole 40 Mg Tablet PO 40 mg Q12HR ROXANNE Administration Polysaccharide Iron Complex 150 mg 11/03/24 17:00 11/04/24 16:10 Polysaccharide Iron Complex 150 Mg Capsule PO 150 mg BIDWM [facility]NE Administration Potassium Chloride 20 meq 11/03/24 09:00 11/04/24 16:10 Potassium Chloride 20 Meq Er Tablet PO 20 meq BID ROXANNE Administration Simvastatin 20 mg 11/03/24 09:00 11/04/24 08:55 Simvastatin 20 Mg Tablet PO 20 mg DAILY ROXANNE Administration Radiology Results: ITS Impressions Chest X-Ray 11/02/24 11:23 IMPRESSION: Bilateral hyperinflation suggesting COPD No active cardiopulmonary disease Aortic calcification and tortuosity Osteopenia Bilateral glenohumeral osteoarthritis Labs Labs: Laboratory Tests 11/04/24 06:10 WBC 11.7 H Hgb 6.7 L* Hct 22.6 L Plt Count 232 Sodium 120 L Potassium 3.7 Chloride 96 L Carbon Dioxide 20 L Anion Gap 4 BUN 8 Creatinine 0.77 Estim Creat Clear Calc 56 Estimated GFR > 60 Glucose 111 H Calcium 8.0 L Total Bilirubin 0.6 AST 20 ALT 14 Alkaline Phosphatase 64 Total Protein 6.0 L Albumin 3.1 L Microbiology 11/02/24 22:17 Blood Blood Culture - Preliminary 11/02/24 22:23 Blood Blood Culture - Preliminary
[2024-11-04 12:04] LABS: Glucose Point of Care 209 mg/dl (65-105)
[2024-11-04] MEDS: INSULIN ASPART (*BKC) 100 UNITS/ML SUB-Q ×3 (12:12→21:54)
[2024-11-04 16:46] LABS: Glucose Point of Care 237 mg/dl (65-105)
[2024-11-04 18:43] LABS: Hematocrit 26.2 % (37.0-47.0); Hemoglobin 8.1 g/dL (12.0-15.0)
[2024-11-04 18:54] LABS: Anion Gap 7 mmol/L (4-12); Blood Urea Nitrogen 5 mg/dL (7-17); Calcium 8.4 mg/dL (8.4-10.2); Carbon Dioxide 20 mmol/L (22-30); Chloride 94 mmol/L (98-107); Estimated CRCL calculation 59 ml/min; Estimated Glomerular Filt Rate > 60; Glucose 211 mg/dL (65-110); Potassium 3.8 mmol/L (3.4-5.0); Sodium 121 mmol/L (137-145)
[2024-11-04 19:02] LABS: Transferrin 263 mg/dL (206-381)
[2024-11-04 19:32] LABS: Iron 86 ug/dL (37-170)
[2024-11-04 19:42] LABS: Percent Iron Saturation 23 % (20-50)
[2024-11-04] MEDS: FENOFIBRATE 160 MG TABLET PO (21:00)
[2024-11-04] MEDS: INSULIN GLARGINE (*BKC) 100 UNITS/ML 11 UNITS SUB-Q (21:52)
[2024-11-04 22:46] LABS: Glucose Point of Care 227 mg/dl (65-105)
[2024-11-05] VITALS: BP 180/67; PULSE 79; RESP 14; TEMP 36.2; O2SAT 100
[2024-11-05] MEDS: MORPHINE SULFATE (*CRX) 2 MG/ML INJ IV PUSH (01:10)
[2024-11-05 01:50] VITALS: BP 169/73
[2024-11-05 03:19] LABS: Protein, Total 4.9 g/dL (6.1-8.1)
[2024-11-05 05:46] VITALS: BP 167/75; PULSE 80; RESP 16; TEMP 36.6; O2SAT 99
[2024-11-05] MEDS: HYDROcodone/acetaminophen (*CRX) 5-325 MG TABLET 1 TAB PO ×2 (06:01→20:50)
[2024-11-05] MEDS: LEVOTHYROXINE SODIUM 75 MCG TABLET PO (06:01)
[2024-11-05 07:41] LABS: Hematocrit 26.3 % (37.0-47.0); Hemoglobin 8.1 g/dL (12.0-15.0); Mean Corpuscular HGB Conc 30.8 g/dl (32-36); Mean Corpuscular Hemoglobin 19.8 pg (26-34); Mean Corpuscular Volume 64.3 fl (80-100); Mean Platelet Volume 10.2 fl (7.4-10.4); Platelet Count Result 252 k/mm3 (150-375); Red Blood Count 4.09 M/mm3 (4.2-5.4); Red Cell Distribution Width 19.8 % (11.5-14.5); White Blood Count 11.2 K/mm3 (4.5-10.0)
[2024-11-05 07:50] LABS: Anion Gap 8 mmol/L (4-12); Blood Urea Nitrogen 5 mg/dL (7-17); Calcium 8.6 mg/dL (8.4-10.2); Carbon Dioxide 20 mmol/L (22-30); Chloride 99 mmol/L (98-107); Estimated CRCL calculation 61 ml/min; Estimated Glomerular Filt Rate > 60; Glucose 147 mg/dL (65-110); Potassium 3.7 mmol/L (3.4-5.0); Sodium 127 mmol/L (137-145)
[2024-11-05 07:52] LABS: Glucose Point of Care 151 mg/dl (65-105)
[2024-11-05] MEDS: POTASSIUM CHLORIDE 20 MEQ ER TABLET PO ×2 (09:03→16:11)
[2024-11-05] MEDS: LOSARTAN POTASSIUM 100 MG TABLET PO (09:03)
[2024-11-05] MEDS: amLODIPine BESYLATE 5 MG TABLET PO (09:03)
[2024-11-05] MEDS: ISOSORBIDE MONONITRATE 30 MG TAB.ER.24H PO (09:03)
[2024-11-05] MEDS: LEFLUNOMIDE 20 MG TABLET PO (09:03)
[2024-11-05] MEDS: SIMVASTATIN 20 MG TABLET PO (09:03)
[2024-11-05] MEDS: POLYSACCHARIDE IRON COMPLEX 150 MG CAPSULE PO ×2 (09:03→16:11)
[2024-11-05] MEDS: HYDROXYCHLOROQUINE SULFATE 200 MG TABLET 300 MG PO ×2 (09:03→16:10)
[2024-11-05] MEDS: PANTOPRAZOLE 40 MG TABLET PO ×2 (09:03→20:50)
--- NOTE | 2024-11-05 10:52 | P.PNNP_ITS ---
Progress Note: A&P Assessment and Plan (1) Hyponatremia: Code(s): E87.1 - Hypo-osmolality and hyponatremia Status: Acute Assessment and Plan: * slow improvement noted * acute on chronic * from review of outside records, baseline sodium runs around 129 - 136mmol/L since 2019 * last blood work in August 2024 -- sdoium was 129mmol/L * appears relatively asymptomatic * risk factors for low sodium: * prerenal factors (poor oral intake) * HCTZ use * chronic pain * PPI use * known thyroid disease * evaluation to date noted: * TSH and cortisol okay * no evidence of WIRE STRANDER or lung disease * SPEP/UPEP and serum/urine osmo pending * urine electrolytes prerenal * s/p DDAVP and D5W due to concerns for overcorrection on 11/03 * currently on fluid restriction * follow trend of repeat sodium levels (2) Hypertension: Code(s): I10 - Essential (primary) hypertension Status: Chronic Assessment and Plan: * reasonable control * follow trend of hemodynamics (3) Diabetes: Code(s): E11.9 - Type 2 diabetes mellitus without complications Status: Acute Assessment and Plan: * follow accu-cheks * glycemic control per hospitalist Will continue to follow. L Subjective Date/time seen: 11/05/24 10:52 Interval history: Follow-up for acute on chronic hyponatremia. Improvement in sodium improved with current interventions/therapy; no apparent distress noted at the time of my visit; no issues/events overnight or earlier this morning; no other acute complaints voiced currently. Exam 2 Narrative: General: elderly but WD/WN female in NAD Heart: normal S1 and S2; no rub Lungs: clear to auscultation Abdomen: soft, nontender, nondistended, positive bowel sounds Extremities: no cyanosis or clubbing; no edema Skin: warm and intact Objective Data Vital Signs Vital Signs: Vital Signs Temp Pulse Resp BP Pulse Ox O2 Del Method 11/05/24 09:00 Room Air 11/05/24 05:46 97.8 F 80 16 167/75 H 99 11/05/24 01:50 169/73 H 11/05/24 00:00 97.2 F L 79 14 180/67 H 100 11/04/24 20:00 Room Air 11/04/24 20:00 97.6 F 79 14 169/76 H 99 Intake/Output Intake/Output: Intake & Output 11/02/24 11/03/24 11/04/24 11/05/24 23:59 23:59 23:59 23:59 Intake Total 1000 1430 2664 845 Balance 1000 1430 2664 845 Meds/Results Medications: Active Medications Generic Name Dose Route Start Last Admin Trade Name Freq PRN Reason Stop Dose Admin Acetaminophen 650 mg 11/02/24 14:02 Acetaminophen 325 Mg Tablet PO Q4H PRN Mild Pain (1-3) or Fever Hydrocodone Bitart/Acetaminophen 1 tab 11/02/24 14:29 11/05/24 06:01 Hydrocodone/Acetaminophen (*Crx) 5-325 Mg Tablet PO 1 tab Q4H PRN Administration Pain Rated 4-6 Amlodipine Besylate 5 mg 11/03/24 09:00 11/05/24 09:03 Amlodipine Besylate 5 Mg Tablet PO 5 mg DAILY ROXANNE Administration Dextrose 12.5 gm 11/03/24 00:32 Dextrose 50% 25 Gm/50 Ml Syringe IV PUSH PRN PRN Hypoglycemia Protocol Fenofibrate 160 mg 11/03/24 21:00 11/04/24 21:00 Fenofibrate 160 Mg Tablet PO 160 mg QHS ROXANNE Administration Glucagon 1 mg 11/03/24 00:32 Glucagon For Inj 1 Mg Vial IM PRN PRN Hypoglycemia Protocol Glucose 15 gm 11/03/24 00:32 Glucose Oral Gel 15 Gm Of Glucse In 37.5 Gm Tube PO PRN PRN Hypoglycemia Protocol Hydroxychloroquine Sulfate 300 mg 11/03/24 09:00 11/05/24 16:10 Hydroxychloroquine Sulfate 200 Mg Tablet PO 300 mg BIDWM ROX[facility]NE Administration Dextrose 1,000 mls @ 100 mls/hr 11/03/24 00:32 Dextrose 5% 1,000 Ml IVPB PRN PRN Hypoglycemia Protocol Ceftriaxone Sodium 1 gm in 50 mls @ 100 mls/hr 11/03/24 10:30 11/05/24 09:34 Rocephin 1 Gm/Ns 50 Ml IVPB Infused QAM ROX[facility]NE Infusion Insulin Aspart 2 - 5 units 11/03/24 08:00 11/05/24 17:13 Insulin Aspart (*Bkc) 100 Units/Ml SUB-Q Not Given TIDWM R[facility] Protocol Insulin Aspart 1 - 2 units 11/03/24 21:00 11/04/24 21:54 Insulin Aspart (*Bkc) 100 Units/Ml SUB-Q 1 units HS [facility] Administration Protocol Insulin Glargine 11 units 11/03/24 21:00 11/04/24 21:52 Insulin Glargine (*Bkc) 100 Units/Ml 0.15 units/kg (11 units) 11 units SUB-Q Administration [facility] Isosorbide Mononitrate 30 mg 11/03/24 09:00 11/05/24 09:03 Isosorbide Mononitrate 30 Mg Tab.Er.24h PO 30 mg DAILY ROXANNE Administration Leflunomide 20 mg 11/03/24 09:00 11/05/24 09:03 Leflunomide 20 Mg Tablet PO 20 mg DAILY ROXANNE Administration Levothyroxine Sodium 75 mcg 11/03/24 06:30 11/05/24 06:01 Levothyroxine Sodium 75 Mcg Tablet PO 75 mcg DAILY@0630 ROXANNE Administration Losartan Potassium 100 mg 11/03/24 09:00 11/05/24 09:03 Losartan Potassium 100 Mg Tablet PO 100 mg DAILY [facility] Administration Morphine Sulfate 2 mg 11/02/24 14:29 11/05/24 01:10 Morphine Sulfate (*Crx) 2 Mg/Ml Inj IV PUSH 2 mg Q2H PRN Administration Pain Rated 7-10 Ondansetron HCl 4 mg 11/04/24 06:03 Ondansetron Inj 4 Mg/2 Ml Vial IV PUSH Q6H PRN Nausea And Vomiting Pantoprazole Sodium 40 mg 11/03/24 09:00 11/05/24 09:03 Pantoprazole 40 Mg Tablet PO 40 mg Q12HR ROXANNE Administration Polysaccharide Iron Complex 150 mg 11/03/24 17:00 11/05/24 16:11 Polysaccharide Iron Complex 150 Mg Capsule PO 150 mg BIDWM ROX[facility]NE Administration Potassium Chloride 20 meq 11/03/24 09:00 11/05/24 16:11 Potassium Chloride 20 Meq Er Tablet PO 20 meq BID ROXANNE Administration Simvastatin 20 mg 11/03/24 09:00 11/05/24 09:03 Simvastatin 20 Mg Tablet PO 20 mg DAILY ROXANNE Administration Radiology Results: ITS Impressions Chest X-Ray 11/02/24 11:23 IMPRESSION: Bilateral hyperinflation suggesting COPD No active cardiopulmonary disease Aortic calcification and tortuosity Osteopenia Bilateral glenohumeral osteoarthritis Labs Labs: Laboratory Tests 11/05/24 07:18 11/05/24 07:18 Microbiology 11/03/24 13:51 Clean Catch Midstream Urine Culture - Final
[2024-11-05 11:45] LABS: Glucose Point of Care 231 mg/dl (65-105)
[2024-11-05] MEDS: INSULIN ASPART (*BKC) 100 UNITS/ML SUB-Q (12:06)
[2024-11-05 14:00] VITALS: BP 158/72; PULSE 90; RESP 17; TEMP 36.4; O2SAT 100
[2024-11-05 16:03] LABS: Osmolality, Urine 294 mOsm/kg (50-1200)
[2024-11-05 16:42] LABS: Glucose Point of Care 195 mg/dl (65-105)
--- NOTE | 2024-11-05 17:45 | PM.IMPN ---
Progress Note: A&P Assessment and Plan (1) Acute hyponatremia: Code(s): E87.1 - Hypo-osmolality and hyponatremia Status: Acute Assessment and Plan: Admission sodium level of 116. Nephrology consulted Presumed etiology hydrochlorothiazide Free water restriction (2) Body aches: Code(s): R52 - Pain, unspecified Status: Acute Assessment and Plan: Cont. current, intermittently controlled. (3) Leukocytosis: Code(s): D72.829 - Elevated white blood cell count, unspecified Status: Acute Assessment and Plan: 33 KA on admission. Urinalysis with 6-10 WBC in urine Urine culture mixed genital yaw Started on ceftriaxone on admission is 11/03/2024 (4) Hypertension: Code(s): I10 - Essential (primary) hypertension Status: Acute Assessment and Plan: - Elevated bp this am, will trend, consider uptitrating norvasc if remains high. (5) Diabetes: Code(s): E11.9 - Type 2 diabetes mellitus without complications Status: Acute Assessment and Plan: - Cont. Accu-Cheks a.c. HS with corrective insulin. - Diabetic diet. - Holding glipizide, metformin. (6) Arthritis: Code(s): M19.90 - Unspecified osteoarthritis, unspecified site Status: Acute Assessment and Plan: - Encouraged to request prns when having pain. Stable. Continue hydrochloroquine and Arava (7) Hypothyroidism: Code(s): E03.9 - Hypothyroidism, unspecified Status: Acute Assessment and Plan: TSH 1.7, Continue Synthroid (8) Microcytic anemia: Code(s): D50.9 - Iron deficiency anemia, unspecified Status: Acute Assessment and Plan: - Anemic on presentation with hgb 8.2, steadily downtrending, to 6.7. Needing transfusion - check ferritin, tibc/iron/sat and fobt. - Consider GI consultation pending fobt results which is still pending. - Hold lovenox. H&H remained stable Plan DVT prophylaxis SCDs Code status full code Subjective Date/time seen: 11/05/24 17:45 Interval history: Chart reviewed. No new complaints. Feeling better. No chest pain or shortness of breath. Review of Systems Review of Systems: All systems reviewed & are unremarkable except as noted in HPI and below Exam Narrative: GENERAL APPEARANCE: Appears to be in no acute distress. HEAD: normocephalic atraumatic EYES: PERRL, EOMI. Vision grossly intact. ENT: Hearing grossly intact, no nasal discharge NECK: Neck supple, trachea midline. CARDIAC: Normal S1/S2. Rhythm is regular. No murmurs, rubs, or gallops. No cyanosis or pallor. Extremities are warm and well perfused. LUNGS: Clear to auscultation without rales, rhonchi, wheezing or diminished breath sounds. Respirations even and unlabored. ABDOMEN: BS positive x 4 quadrants. Soft, nondistended, nontender. No guarding or rebound. MSK: No joint tenderness/swelling, fair strength in all extremities. PERIPHERAL VASCULAR: Peripheral pulses palpable. Normal perfusion, cap refill <2 seconds. No edema. NEURO: Follows commands. No focal deficits. SKIN: [place] without lesions or eruptions. PSYCH: Stable, no paranoia or delusional thinking. Objective Data Vital Signs Vital Signs: Vital Signs - 24 hr 11/04/24 20:00 11/04/24 20:00 11/05/24 00:00 Temperature 97.6 F 97.2 F L Pulse Rate 79 79 Respiratory Rate 14 14 Blood Pressure 169/76 H 180/67 H Pulse Oximetry 99 100 Oxygen Delivery Room Air 11/05/24 01:50 11/05/24 05:46 11/05/24 09:00 Temperature 97.8 F Pulse Rate 80 Respiratory Rate 16 Blood Pressure 169/73 H 167/75 H Pulse Oximetry 99 Oxygen Delivery Room Air 11/05/24 14:00 Temperature 97.6 F Pulse Rate 90 Respiratory Rate 17 Blood Pressure 158/72 H Pulse Oximetry 100 Oxygen Delivery Intake/Output Intake/Output: Intake & Output 11/02/24 11/03/24 11/04/24 11/05/24 23:59 23:59 23:59 23:59 Intake Total 1000 1430 2664 745 Balance 1000 1430 2664 745 Meds/Results Medications: Active Medications Generic Name Dose Route Start Last Admin Trade Name Freq PRN Reason Stop Dose Admin Acetaminophen 650 mg 11/02/24 14:02 Acetaminophen 325 Mg Tablet PO Q4H PRN Mild Pain (1-3) or Fever Hydrocodone Bitart/Acetaminophen 1 tab 11/02/24 14:29 11/05/24 06:01 Hydrocodone/Acetaminophen (*Crx) 5-325 Mg Tablet PO 1 tab Q4H PRN Administration Pain Rated 4-6 Amlodipine Besylate 5 mg 11/03/24 09:00 11/05/24 09:03 Amlodipine Besylate 5 Mg Tablet PO 5 mg DAILY ROXANNE Administration Dextrose 12.5 gm 11/03/24 00:32 Dextrose 50% 25 Gm/50 Ml Syringe IV PUSH PRN PRN Hypoglycemia Protocol Fenofibrate 160 mg 11/03/24 21:00 11/04/24 21:00 Fenofibrate 160 Mg Tablet PO 160 mg QHS ROXANNE Administration Glucagon 1 mg 11/03/24 00:32 Glucagon For Inj 1 Mg Vial IM PRN PRN Hypoglycemia Protocol Glucose 15 gm 11/03/24 00:32 Glucose Oral Gel 15 Gm Of Glucse In 37.5 Gm Tube PO PRN PRN Hypoglycemia Protocol Hydroxychloroquine Sulfate 300 mg 11/03/24 09:00 11/05/24 16:10 Hydroxychloroquine Sulfate 200 Mg Tablet PO 300 mg BIDWM ROXANNE Administration Dextrose 1,000 mls @ 100 mls/hr 11/03/24 00:32 Dextrose 5% 1,000 Ml IVPB PRN PRN Hypoglycemia Protocol Ceftriaxone Sodium 1 gm in 50 mls @ 100 mls/hr 11/03/24 10:30 11/05/24 09:34 Rocephin 1 Gm/Ns 50 Ml IVPB Infused QAM ROXANNE Infusion Insulin Aspart 2 - 5 units 11/03/24 08:00 11/05/24 17:13 Insulin Aspart (*Bkc) 100 Units/Ml SUB-Q Not Given TIDWM [facility] Protocol Insulin Aspart 1 - 2 units 11/03/24 21:00 11/04/24 21:54 Insulin Aspart (*Bkc) 100 Units/Ml SUB-Q 1 units HS [facility] Administration Protocol Insulin Glargine 11 units 11/03/24 21:00 11/04/24 21:52 Insulin Glargine (*Bkc) 100 Units/Ml 0.15 units/kg (11 units) 11 units SUB-Q Administration [facility] Isosorbide Mononitrate 30 mg 11/03/24 09:00 11/05/24 09:03 Isosorbide Mononitrate 30 Mg Tab.Er.24h PO 30 mg DAILY ROXANNE Administration Leflunomide 20 mg 11/03/24 09:00 11/05/24 09:03 Leflunomide 20 Mg Tablet PO 20 mg DAILY ROXANNE Administration Levothyroxine Sodium 75 mcg 11/03/24 06:30 11/05/24 06:01 Levothyroxine Sodium 75 Mcg Tablet PO 75 mcg DAILY@0630 ROXANNE Administration Losartan Potassium 100 mg 11/03/24 09:00 11/05/24 09:03 Losartan Potassium 100 Mg Tablet PO 100 mg DAILY ROXANNE Administration Morphine Sulfate 2 mg 11/02/24 14:29 11/05/24 01:10 Morphine Sulfate (*Crx) 2 Mg/Ml Inj IV PUSH 2 mg Q2H PRN Administration Pain Rated 7-10 Ondansetron HCl 4 mg 11/04/24 06:03 Ondansetron Inj 4 Mg/2 Ml Vial IV PUSH Q6H PRN Nausea And Vomiting Pantoprazole Sodium 40 mg 11/03/24 09:00 11/05/24 09:03 Pantoprazole 40 Mg Tablet PO 40 mg Q12HR ROXANNE Administration Polysaccharide Iron Complex 150 mg 11/03/24 17:00 11/05/24 16:11 Polysaccharide Iron Complex 150 Mg Capsule PO 150 mg BIDWM ROX[facility]NE Administration Potassium Chloride 20 meq 11/03/24 09:00 11/05/24 16:11 Potassium Chloride 20 Meq Er Tablet PO 20 meq BID ROXANNE Administration Simvastatin 20 mg 11/03/24 09:00 11/05/24 09:03 Simvastatin 20 Mg Tablet PO 20 mg DAILY ROXANNE Administration Radiology Results: ITS Impressions Chest X-Ray 11/02/24 11:23 IMPRESSION: Bilateral hyperinflation suggesting COPD No active cardiopulmonary disease Aortic calcification and tortuosity Osteopenia Bilateral glenohumeral osteoarthritis Labs Labs: Laboratory Results - last 24 hr 11/03/24 11/03/24 11/03/24 05:59 13:51 16:09 WBC RBC Hgb Hct MCV MCH MCHC RDW Plt Count MPV Sodium Potassium Chloride Carbon Dioxide Anion Gap BUN Creatinine Estim Creat Clear Calc Estimated GFR Glucose POC Capillary Glucose Serum Osmolality 265 L Calcium Iron TIBC % Saturation Transferrin Ferritin Total Protein 4.9 L Urine Osmolality 294 11/04/24 11/04/24 11/04/24 18:31 18:32 21:48 WBC RBC Hgb 8.1 L Hct 26.2 L MCV MCH MCHC RDW Plt Count MPV Sodium 121 L Potassium 3.8 Chloride 94 L Carbon Dioxide 20 L Anion Gap 7 BUN 5 L Creatinine 0.72 Estim Creat Clear Calc 59 Estimated GFR > 60 Glucose 211 H POC Capillary Glucose 227 H Serum Osmolality Calcium 8.4 Iron 86 TIBC 373 % Saturation 23 Transferrin 263 Ferritin 36.20 Total Protein Urine Osmolality 11/05/24 11/05/24 11/05/24 07:18 07:48 11:39 WBC 11.2 H RBC 4.09 L Hgb 8.1 L Hct 26.3 L MCV 64.3 L MCH 19.8 L D MCHC 30.8 L RDW 19.8 H Plt Count 252 MPV 10.2 Sodium 127 L Potassium 3.7 Chloride 99 Carbon Dioxide 20 L Anion Gap 8 BUN 5 L Creatinine 0.70 Estim Creat Clear Calc 61 Estimated GFR > 60 Glucose 147 H POC Capillary Glucose 151 H 231 H Serum Osmolality Calcium 8.6 Iron TIBC % Saturation Transferrin Ferritin Total Protein Urine Osmolality 11/05/24 16:40 WBC RBC Hgb Hct MCV MCH MCHC RDW Plt Count MPV Sodium Potassium Chloride Carbon Dioxide Anion Gap BUN Creatinine Estim Creat Clear Calc Estimated GFR Glucose POC Capillary Glucose 195 H Serum Osmolality Calcium Iron TIBC % Saturation Transferrin Ferritin Total Protein Urine Osmolality
[2024-11-05] MEDS: FENOFIBRATE 160 MG TABLET PO (20:50)
[2024-11-05] MEDS: INSULIN GLARGINE (*BKC) 100 UNITS/ML 11 UNITS SUB-Q (20:52)
[2024-11-05 21:24] LABS: Glucose Point of Care 188 mg/dl (65-105)
[2024-11-05 22:00] VITALS: BP 169/85; PULSE 83; RESP 20; TEMP 37; O2SAT 100
[2024-11-06] MEDS: LEVOTHYROXINE SODIUM 75 MCG TABLET PO (05:34)
[2024-11-06 06:00] VITALS: BP 177/80; PULSE 70; RESP 16; TEMP 37; O2SAT 100
[2024-11-06 07:16] LABS: Basophils Absolute Auto 0.1 K/mm3 (0.0-0.1); Basophils Percent Auto 0.8 % (0.2-1.2); Eosinophils Absolute Auto 0.1 K/mm3 (0-0.3); Eosinophils Percent Auto 1.8 % (0-4.4); Hematocrit 27.5 % (37.0-47.0); Hemoglobin 8.2 g/dL (12.0-15.0); Immature Granulocyte Percent A 1.3 % (0-0.5); Lymphocytes Absolute Auto 1.37 K/mm3 (0.9-3.2); Lymphocytes Percent Auto 17.3 % (18.3-44.2); Mean Corpuscular HGB Conc 29.8 g/dl (32-36); Mean Corpuscular Hemoglobin 19.4 pg (26-34); Mean Corpuscular Volume 65.2 fl (80-100); Mean Platelet Volume 9.9 fl (7.4-10.4); Monocytes Absolute Auto 0.8 K/mm3 (0.1-0.6); Monocytes Percent Auto 9.6 % (2.6-8.5); Neutrophils Absolute Auto 5.5 K/mm3 (1.3-6.7); Neutrophils Percent Auto 69.2 % (45.5-73.1); Platelet Count Result 285 k/mm3 (150-375); Red Blood Count 4.22 M/mm3 (4.2-5.4); Red Cell Distribution Width 20.2 % (11.5-14.5); White Blood Count 7.9 K/mm3 (4.5-10.0)
[2024-11-06 07:20] LABS: Alanine Aminotransferase 20 U/L (6-35); Albumin Level 3.3 g/dL (3.5-5.1); Alkaline Phosphatase 106 U/L (38-126); Anion Gap 6 mmol/L (4-12); Aspartate Amino Transferase 24 U/L (14-36); Bilirubin,Total 0.6 mg/dL (0.2-1.3); Blood Urea Nitrogen 9 mg/dL (7-17); Calcium 8.5 mg/dL (8.4-10.2); Carbon Dioxide 22 mmol/L (22-30); Chloride 100 mmol/L (98-107); Estimated CRCL calculation 56 ml/min; Estimated Glomerular Filt Rate > 60; Glucose 123 mg/dL (65-110); Magnesium 1.9 mg/dL (1.6-2.3); Potassium 3.9 mmol/L (3.4-5.0); Sodium 128 mmol/L (137-145)
[2024-11-06 08:08] LABS: Hypochromasia 2+; Microcytosis 1+ (NORMAL); Platelet Estimate Adequate (Adequate)
[2024-11-06 08:09] LABS: Burr Cells 1+; Ovalocytes 1+; Schistocytes None Seen
[2024-11-06 08:23] LABS: Alpha 1 Globulin 0.3 g/dL (0.2-0.3); Alpha 2 Globulin 0.8 g/dL (0.5-0.9); Beta 1 Globulin 0.4 g/dL (0.4-0.6); Gamma Globulin 0.2 g/dL (0.8-1.7)
[2024-11-06] MEDS: HYDROXYCHLOROQUINE SULFATE 200 MG TABLET 300 MG PO ×2 (08:46→17:37)
[2024-11-06] MEDS: LEFLUNOMIDE 20 MG TABLET PO (08:46)
[2024-11-06] MEDS: amLODIPine BESYLATE 5 MG TABLET PO (08:46)
[2024-11-06] MEDS: HYDROcodone/acetaminophen (*CRX) 5-325 MG TABLET 1 TAB PO ×2 (08:47→21:47)
[2024-11-06] MEDS: POLYSACCHARIDE IRON COMPLEX 150 MG CAPSULE PO ×2 (08:47→17:37)
[2024-11-06] MEDS: PANTOPRAZOLE 40 MG TABLET PO ×2 (08:47→21:47)
[2024-11-06] MEDS: POTASSIUM CHLORIDE 20 MEQ ER TABLET PO ×2 (08:47→17:38)
[2024-11-06] MEDS: ISOSORBIDE MONONITRATE 30 MG TAB.ER.24H PO (08:47)
[2024-11-06] MEDS: LOSARTAN POTASSIUM 100 MG TABLET PO (08:47)
[2024-11-06] MEDS: SIMVASTATIN 20 MG TABLET PO (08:47)
[2024-11-06 09:20] LABS: Glucose Point of Care 140 mg/dl (65-105)
--- NOTE | 2024-11-06 10:18 | P.PNIM_ITS ---
Progress Note: A&P Assessment and Plan (1) Acute hyponatremia: Code(s): E87.1 - Hypo-osmolality and hyponatremia Status: Acute Assessment and Plan: Admission sodium level of 116. Nephrology consulted Presumed etiology hydrochlorothiazide Free water restriction (2) Body aches: Code(s): R52 - Pain, unspecified Status: Acute Assessment and Plan: Cont. current, intermittently controlled. (3) Leukocytosis: Code(s): D72.829 - Elevated white blood cell count, unspecified Status: Acute Assessment and Plan: 33 KA on admission. Urinalysis with 6-10 WBC in urine Urine culture mixed genital yaw Started on ceftriaxone on admission is 11/03/2024 (4) Hypertension: Code(s): I10 - Essential (primary) hypertension Status: Acute Assessment and Plan: - Elevated bp this am, will trend, consider uptitrating norvasc if remains high. (5) Diabetes: Code(s): E11.9 - Type 2 diabetes mellitus without complications Status: Acute Assessment and Plan: - Cont. Accu-Cheks a.c. HS with corrective insulin. - Diabetic diet. - Holding glipizide, metformin. (6) Arthritis: Code(s): M19.90 - Unspecified osteoarthritis, unspecified site Status: Acute Assessment and Plan: - Encouraged to request prns when having pain. Stable. Continue hydrochloroquine and Arava (7) Hypothyroidism: Code(s): E03.9 - Hypothyroidism, unspecified Status: Acute Assessment and Plan: TSH 1.7, Continue Synthroid (8) Microcytic anemia: Code(s): D50.9 - Iron deficiency anemia, unspecified Status: Acute Assessment and Plan: - Anemic on presentation with hgb 8.2, steadily downtrending, to 6.7. Needing transfusion - check ferritin, tibc/iron/sat and fobt. - Consider GI consultation pending fobt results which is still pending. - Hold lovenox. H&H remained stable Plan DVT prophylaxis SCDs Code status full code Subjective Date/time seen: 11/06/24 10:18 Interval history: Patient still on fluid restriction. Sodium currently 128. Sodium was 116 upon admission on 11/02. Patient hemoglobin is stable around 8.1 Review of Systems Review of Systems: 12 systems were reviewed and are negativ e except for as per HPI. All systems reviewed & are unremarkable except as noted in HPI and below Exam Narrative: GENERAL APPEARANCE: Appears to be in no acute distress. HEAD: normocephalic atraumatic EYES: PERRL, EOMI. Vision grossly intact. ENT: Hearing grossly intact, no nasal discharge NECK: Neck supple, trachea midline. CARDIAC: Normal S1/S2. Rhythm is regular. No murmurs, rubs, or gallops. No cyanosis or pallor. Extremities are warm and well perfused. LUNGS: Clear to auscultation without rales, rhonchi, wheezing or diminished breath sounds. Respirations even and unlabored. ABDOMEN: BS positive x 4 quadrants. Soft, nondistended, nontender. No guarding or rebound. MSK: No joint tenderness/swelling, fair strength in all extremities. PERIPHERAL VASCULAR: Peripheral pulses palpable. Normal perfusion, cap refill <2 seconds. No edema. NEURO: Follows commands. No focal deficits. SKIN: [place] without lesions or eruptions. PSYCH: Stable, no paranoia or delusional thinking. Objective Data Vital Signs Vital Signs: Vital Signs - 24 hr 11/05/24 14:00 11/05/24 20:00 11/05/24 22:00 Temperature 97.6 F 98.6 F Pulse Rate 90 83 Respiratory Rate 17 20 Blood Pressure 158/72 H 169/85 H Pulse Oximetry 100 100 Oxygen Delivery Room Air 11/06/24 06:00 11/06/24 08:45 Temperature 98.6 F Pulse Rate 70 Respiratory Rate 16 Blood Pressure 177/80 H Pulse Oximetry 100 Oxygen Delivery Room Air Intake/Output Intake/Output: Intake & Output 11/03/24 11/04/24 11/05/24 11/06/24 23:59 23:59 23:59 23:59 Intake Total 1430 2664 845 880 Balance 1430 2664 845 880 Meds/Results Medications: Active Medications Generic Name Dose Route Start Last Admin Trade Name Freq PRN Reason Stop Dose Admin Acetaminophen 650 mg 11/02/24 14:02 Acetaminophen 325 Mg Tablet PO Q4H PRN Mild Pain (1-3) or Fever Hydrocodone Bitart/Acetaminophen 1 tab 11/02/24 14:29 11/06/24 08:47 Hydrocodone/Acetaminophen (*Crx) 5-325 Mg Tablet PO 1 tab Q4H PRN Administration Pain Rated 4-6 Amlodipine Besylate 5 mg 11/03/24 09:00 11/06/24 08:46 Amlodipine Besylate 5 Mg Tablet PO 5 mg DAILY ROXANNE Administration Dextrose 12.5 gm 11/03/24 00:32 Dextrose 50% 25 Gm/50 Ml Syringe IV PUSH PRN PRN Hypoglycemia Protocol Fenofibrate 160 mg 11/03/24 21:00 11/05/24 20:50 Fenofibrate 160 Mg Tablet PO 160 mg QHS ROXANNE Administration Glucagon 1 mg 11/03/24 00:32 Glucagon For Inj 1 Mg Vial IM PRN PRN Hypoglycemia Protocol Glucose 15 gm 11/03/24 00:32 Glucose Oral Gel 15 Gm Of Glucse In 37.5 Gm Tube PO PRN PRN Hypoglycemia Protocol Hydroxychloroquine Sulfate 300 mg 11/03/24 09:00 11/06/24 08:46 Hydroxychloroquine Sulfate 200 Mg Tablet PO 300 mg BIDWM ROXANNE Administration Dextrose 1,000 mls @ 100 mls/hr 11/03/24 00:32 Dextrose 5% 1,000 Ml IVPB PRN PRN Hypoglycemia Protocol Ceftriaxone Sodium 1 gm in 50 mls @ 100 mls/hr 11/03/24 10:30 11/06/24 09:18 Rocephin 1 Gm/Ns 50 Ml IVPB Infused QAM ROXANNE Infusion Insulin Aspart 2 - 5 units 11/03/24 08:00 11/06/24 08:45 Insulin Aspart (*Bkc) 100 Units/Ml SUB-Q Not Given TIDWM [facility] Protocol Insulin Aspart 1 - 2 units 11/03/24 21:00 11/05/24 20:53 Insulin Aspart (*Bkc) 100 Units/Ml SUB-Q Not Given HS [facility] Protocol Insulin Glargine 11 units 11/03/24 21:00 11/05/24 20:52 Insulin Glargine (*Bkc) 100 Units/Ml 0.15 units/kg (11 units) 11 units SUB-Q Administration [facility] Isosorbide Mononitrate 30 mg 11/03/24 09:00 11/06/24 08:47 Isosorbide Mononitrate 30 Mg Tab.Er.24h PO 30 mg DAILY ROXANNE Administration Leflunomide 20 mg 11/03/24 09:00 11/06/24 08:46 Leflunomide 20 Mg Tablet PO 20 mg DAILY ROXANNE Administration Levothyroxine Sodium 75 mcg 11/03/24 06:30 11/06/24 05:34 Levothyroxine Sodium 75 Mcg Tablet PO 75 mcg DAILY@0630 ROXANNE Administration Losartan Potassium 100 mg 11/03/24 09:00 11/06/24 08:47 Losartan Potassium 100 Mg Tablet PO 100 mg DAILY ROXANNE Administration Morphine Sulfate 2 mg 11/02/24 14:29 11/05/24 01:10 Morphine Sulfate (*Crx) 2 Mg/Ml Inj IV PUSH 2 mg Q2H PRN Administration Pain Rated 7-10 Ondansetron HCl 4 mg 11/04/24 06:03 Ondansetron Inj 4 Mg/2 Ml Vial IV PUSH Q6H PRN Nausea And Vomiting Pantoprazole Sodium 40 mg 11/03/24 09:00 11/06/24 08:47 Pantoprazole 40 Mg Tablet PO 40 mg Q12HR ROXANNE Administration Polysaccharide Iron Complex 150 mg 11/03/24 17:00 11/06/24 08:47 Polysaccharide Iron Complex 150 Mg Capsule PO 150 mg BIDWM ROXANNE Administration Potassium Chloride 20 meq 11/03/24 09:00 11/06/24 08:47 Potassium Chloride 20 Meq Er Tablet PO 20 meq BID ROXANNE Administration Simvastatin 20 mg 11/03/24 09:00 11/06/24 08:47 Simvastatin 20 Mg Tablet PO 20 mg DAILY ROXANNE Administration Radiology Results: ITS Impressions Chest X-Ray 11/02/24 11:23 IMPRESSION: Bilateral hyperinflation suggesting COPD No active cardiopulmonary disease Aortic calcification and tortuosity Osteopenia Bilateral glenohumeral osteoarthritis Labs Labs: Laboratory Results - last 24 hr 11/03/24 11/03/24 11/03/24 05:59 13:51 16:09 WBC RBC Hgb Hct MCV MCH MCHC RDW Plt Count MPV Immature Gran % (Auto) Neut % (Auto) Lymph % (Auto) [place] % (Auto) Eos % (Auto) Baso % (Auto) Lymph # (Auto) [place] # (Auto) Eos # (Auto) Baso # (Auto) Abs Immat Gran (auto) Absolute Neuts (auto) Absolute Nucleated RBC Nucleated RBC % Platelet Estimate Hypochromasia Microcytosis Ovalocytes Jonn Cells Schistocytes Sodium Potassium Chloride Carbon Dioxide Anion Gap BUN Creatinine Estim Creat Clear Calc Estimated GFR Glucose POC Capillary Glucose Serum Osmolality 265 L Calcium Magnesium Total Bilirubin AST ALT Alkaline Phosphatase Total Protein Albumin 3.0 L Iiunk-3-Zlarlesws 0.3 Lleag-7-Ovzzfqzfb 0.8 Chbj-4-Dsibxyqf 0.4 Cxom-5-Ygbcchuf 0.3 Gamma Globulins 0.2 L PEP Interpretation See note Urine Osmolality 294 11/05/24 11/05/24 11/05/24 11:39 16:40 20:35 WBC RBC Hgb Hct MCV MCH MCHC RDW Plt Count MPV Immature Gran % (Auto) Neut % (Auto) Lymph % (Auto) [place] % (Auto) Eos % (Auto) Baso % (Auto) Lymph # (Auto) [place] # (Auto) Eos # (Auto) Baso # (Auto) Abs Immat Gran (auto) Absolute Neuts (auto) Absolute Nucleated RBC Nucleated RBC % Platelet Estimate Hypochromasia Microcytosis Ovalocytes [place] Cells Schistocytes Sodium Potassium Chloride Carbon Dioxide Anion Gap BUN Creatinine Estim Creat Clear Calc Estimated GFR Glucose POC Capillary Glucose 231 H 195 H 188 H Serum Osmolality Calcium Magnesium Total Bilirubin AST ALT Alkaline Phosphatase Total Protein Albumin [place]de[place]-7-Vipctaiez Ahmrf-6-Zniaufrgs Kize-8-Phfcyrgd Vmuq-0-Jjdzewhp Gamma Globulins PEP Interpretation Urine Osmolality 11/06/24 11/06/24 06:49 08:45 WBC 7.9 RBC 4.22 Hgb 8.2 L Hct 27.5 L MCV 65.2 L MCH 19.4 L MCHC 29.8 L RDW 20.2 H Plt Count 285 MPV 9.9 Immature Gran % (Auto) 1.3 H Neut % (Auto) 69.2 Lymph % (Auto) 17.3 L [place] % (Auto) 9.6 H Eos % (Auto) 1.8 Baso % (Auto) 0.8 Lymph # (Auto) 1.37 [place] # (Auto) 0.8 H Eos # (Auto) 0.1 Baso # (Auto) 0.1 Abs Immat Gran (auto) 0.10 H Absolute Neuts (auto) 5.5 Absolute Nucleated RBC 0.000 Nucleated RBC % 0.0 Platelet Estimate Adequate Hypochromasia 2+ Microcytosis 1+ Ovalocytes 1+ Jonn Cells 1+ Schistocytes None seen Sodium 128 L Potassium 3.9 Chloride 100 Carbon Dioxide 22 Anion Gap 6 BUN 9 Creatinine 0.77 Estim Creat Clear Calc 56 Estimated GFR > 60 Glucose 123 H POC Capillary Glucose 140 H Serum Osmolality Calcium 8.5 Magnesium 1.9 Total Bilirubin 0.6 AST 24 ALT 20 Alkaline Phosphatase 106 Total Protein 6.0 L Albumin 3.3 L Utsrk-9-Bbhcbakqk Sxhky-7-Oyybxhgzn Kegd-0-Jybgdvvg Crax-7-Ijdyajcg Gamma Globulins PEP Interpretation Urine Osmolality Quality VTE Prophylaxis VTE prophylaxis: mechanical ordered Hospitalist MIPS Advance Care Plan I have confirmed that the patient's Advanced Care Plan is present, code status is documented, or surrogate decision maker is listed in patient medical record.: Yes Medication Reconciliation I have utilized all available resources to obtain, update and review the patients current medications (includes all prescriptions, OTC, herbals, cannabis, and nutritional supplements).: Yes
[2024-11-06 11:57] LABS: Glucose Point of Care 173 mg/dl (65-105)
[2024-11-06] MEDS: polyethylene glycoL 3350 17 GM POWD.PACK PO (12:16)
--- NOTE | 2024-11-06 13:52 | P.PNNP_ITS ---
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 L Subjective Date/time seen: 11/06/24 13:52 Interval history: Follow-up for acute on chronic hyponatremia. Improvement in sodium improved with current interventions/therapy; no apparent distress noted at the time of my visit; no issues/events overnight or earlier this morning; no other acute complaints voiced currently. Exam 2 Narrative: General: elderly but WD/WN female in NAD Heart: normal S1 and S2; no rub Lungs: clear to auscultation Abdomen: soft, nontender, nondistended, positive bowel sounds Extremities: no cyanosis or clubbing; no edema Skin: no rash Objective Data Vital Signs Vital Signs: Vital Signs Temp Pulse Resp BP Pulse Ox O2 Del Method 11/06/24 13:50 97.6 F 83 18 155/75 H 100 11/06/24 08:45 Room Air 11/06/24 06:00 98.6 F 70 16 177/80 H 100 11/05/24 22:00 98.6 F 83 20 169/85 H 100 11/05/24 20:00 Room Air Intake/Output Intake/Output: Intake & Output 11/03/24 11/04/24 11/05/24 11/06/24 23:59 23:59 23:59 23:59 Intake Total 1430 2664 845 1120 Balance 1430 2664 845 1120 Meds/Results Medications: Active Medications Generic Name Dose Route Start Last Admin Trade Name Freq PRN Reason Stop Dose Admin Acetaminophen 650 mg 11/02/24 14:02 Acetaminophen 325 Mg Tablet PO Q4H PRN Mild Pain (1-3) or Fever Hydrocodone Bitart/Acetaminophen 1 tab 11/02/24 14:29 11/06/24 08:47 Hydrocodone/Acetaminophen (*Crx) 5-325 Mg Tablet PO 1 tab Q4H PRN Administration Pain Rated 4-6 Amlodipine Besylate 5 mg 11/03/24 09:00 11/06/24 08:46 Amlodipine Besylate 5 Mg Tablet PO 5 mg DAILY ROXANNE Administration Amoxicillin/Clavulanate Potassium 1 tablet 11/07/24 09:00 Amoxicillin/Clavulanate K 875-125 Mg Tab PO 11/09/24 21:01 Q12HR ROXANNE Dextrose 12.5 gm 11/03/24 00:32 Dextrose 50% 25 Gm/50 Ml Syringe IV PUSH PRN PRN Hypoglycemia Protocol Fenofibrate 160 mg 11/03/24 21:00 11/05/24 20:50 Fenofibrate 160 Mg Tablet PO 160 mg QHS ROXANNE Administration Glucagon 1 mg 11/03/24 00:32 Glucagon For Inj 1 Mg Vial IM PRN PRN Hypoglycemia Protocol Glucose 15 gm 11/03/24 00:32 Glucose Oral Gel 15 Gm Of Glucse In 37.5 Gm Tube PO PRN PRN Hypoglycemia Protocol Hydroxychloroquine Sulfate 300 mg 11/03/24 09:00 11/06/24 17:37 Hydroxychloroquine Sulfate 200 Mg Tablet PO 300 mg BIDWM ROXANNE Administration Dextrose 1,000 mls @ 100 mls/hr 11/03/24 00:32 Dextrose 5% 1,000 Ml IVPB PRN PRN Hypoglycemia Protocol Insulin Aspart 2 - 5 units 11/03/24 08:00 11/06/24 17:38 Insulin Aspart (*Bkc) 100 Units/Ml SUB-Q 2 units TIDWM ROXANNE Administration Protocol Insulin Aspart 1 - 2 units 11/03/24 21:00 11/05/24 20:53 Insulin Aspart (*Bkc) 100 Units/Ml SUB-Q Not Given HS [facility] Protocol Insulin Glargine 11 units 11/03/24 21:00 11/05/24 20:52 Insulin Glargine (*Bkc) 100 Units/Ml 0.15 units/kg (11 units) 11 units SUB-Q Administration HS [facility] Isosorbide Mononitrate 30 mg 11/03/24 09:00 11/06/24 08:47 Isosorbide Mononitrate 30 Mg Tab.Er.24h PO 30 mg DAILY ROXANNE Administration Leflunomide 20 mg 11/03/24 09:00 11/06/24 08:46 Leflunomide 20 Mg Tablet PO 20 mg DAILY ROXANNE Administration Levothyroxine Sodium 75 mcg 11/03/24 06:30 11/06/24 05:34 Levothyroxine Sodium 75 Mcg Tablet PO 75 mcg DAILY@0630 ROXANNE Administration Losartan Potassium 100 mg 11/03/24 09:00 11/06/24 08:47 Losartan Potassium 100 Mg Tablet PO 100 mg DAILY [facility] Administration Morphine Sulfate 2 mg 11/02/24 14:29 11/05/24 01:10 Morphine Sulfate (*Crx) 2 Mg/Ml Inj IV PUSH 2 mg Q2H PRN Administration Pain Rated 7-10 Ondansetron HCl 4 mg 11/04/24 06:03 Ondansetron Inj 4 Mg/2 Ml Vial IV PUSH Q6H PRN Nausea And Vomiting Pantoprazole Sodium 40 mg 11/03/24 09:00 11/06/24 08:47 Pantoprazole 40 Mg Tablet PO 40 mg Q12HR ROXANNE Administration Polyethylene Glycol 17 gm 11/06/24 12:10 11/06/24 12:16 Polyethylene Glycol 3350 17 Gm Powd.Pack PO 17 gm QAM ROXANNE Administration Polysaccharide Iron Complex 150 mg 11/03/24 17:00 11/06/24 17:37 Polysaccharide Iron Complex 150 Mg Capsule PO 150 mg BIDWM ROXANNE Administration Potassium Chloride 20 meq 11/03/24 09:00 11/06/24 17:38 Potassium Chloride 20 Meq Er Tablet PO 20 meq BID ROXANNE Administration Simvastatin 20 mg 11/03/24 09:00 11/06/24 08:47 Simvastatin 20 Mg Tablet PO 20 mg DAILY ROXANNE Administration Radiology Results: ITS Impressions Chest X-Ray 11/02/24 11:23 IMPRESSION: Bilateral hyperinflation suggesting COPD No active cardiopulmonary disease Aortic calcification and tortuosity Osteopenia Bilateral glenohumeral osteoarthritis Labs Labs: Laboratory Tests 11/06/24 06:49 11/06/24 06:49 Calcium 8.5 Magnesium 1.9 Total Bilirubin 0.6 AST 24 ALT 20 Alkaline Phosphatase 106 Total Protein 6.0 L Albumin 3.3 L
[2024-11-06 14:00] VITALS: BP 155/75; PULSE 83; RESP 18; TEMP 36.4; O2SAT 100
[2024-11-06 17:08] LABS: Glucose Point of Care 213 mg/dl (65-105)
[2024-11-06] MEDS: INSULIN ASPART (*BKC) 100 UNITS/ML SUB-Q (17:38)
[2024-11-06 18:56] LABS: IFOB Positive Control Positive; Immunochemical Fecal Occult Bl Negative (N)
[2024-11-06 21:19] LABS: Glucose Point of Care 149 mg/dl (65-105)
[2024-11-06] MEDS: INSULIN GLARGINE (*BKC) 100 UNITS/ML 11 UNITS SUB-Q (21:46)
[2024-11-06] MEDS: FENOFIBRATE 160 MG TABLET PO (21:47)
[2024-11-06 22:00] VITALS: BP 176/78; PULSE 73; RESP 20; TEMP 36.7; O2SAT 100
[2024-11-07] MEDS: LEVOTHYROXINE SODIUM 75 MCG TABLET PO (05:04)
--- NOTE | 2024-11-07 05:29 | PC.NURSE ---
Patient BP elevated over night and this AM. Spoke with Dr. Baez. New order received for hydralazine 10 mg IVP now.
[2024-11-07 05:35] VITALS: BP 185/90; PULSE 75; RESP 20; TEMP 36.8; O2SAT 100
[2024-11-07] MEDS: hydrALAZINE HCL 20 MG/ML VIAL 10 MG IV PUSH (05:40)
[2024-11-07 06:06] VITALS: BP 170/82
[2024-11-07 06:43] LABS: Hematocrit 29.5 % (37.0-47.0); Hemoglobin 8.7 g/dL (12.0-15.0); Mean Corpuscular HGB Conc 29.5 g/dl (32-36); Mean Corpuscular Hemoglobin 19.2 pg (26-34); Mean Corpuscular Volume 65.1 fl (80-100); Mean Platelet Volume 9.5 fl (7.4-10.4); Platelet Count Result 316 k/mm3 (150-375); Red Blood Count 4.53 M/mm3 (4.2-5.4); Red Cell Distribution Width 21.1 % (11.5-14.5); White Blood Count 7.4 K/mm3 (4.5-10.0)
[2024-11-07 06:53] LABS: Alanine Aminotransferase 35 U/L (6-35); Albumin Level 3.6 g/dL (3.5-5.1); Alkaline Phosphatase 168 U/L (38-126); Anion Gap 7 mmol/L (4-12); Aspartate Amino Transferase 31 U/L (14-36); Bilirubin,Total 0.5 mg/dL (0.2-1.3); Blood Urea Nitrogen 9 mg/dL (7-17); Calcium 8.8 mg/dL (8.4-10.2); Carbon Dioxide 23 mmol/L (22-30); Chloride 99 mmol/L (98-107); Estimated CRCL calculation 59 ml/min; Estimated Glomerular Filt Rate > 60; Glucose 128 mg/dL (65-110); Sodium 129 mmol/L (137-145)
[2024-11-07 07:28] LABS: Creatinine, Random Urine 54 mg/dL (20-275); Total Prot/Creat ratio mg/mg 0.889 (0.024-0.184); Total Protein/Creatinine Ratio 889 mg/g creat (24-184)
[2024-11-07 07:56] LABS: Glucose Point of Care 154 mg/dl (65-105)
[2024-11-07] MEDS: amLODIPine BESYLATE 10 MG TABLET PO (09:10)
[2024-11-07] MEDS: HYDROXYCHLOROQUINE SULFATE 200 MG TABLET 300 MG PO ×2 (09:10→17:14)
[2024-11-07] MEDS: LEFLUNOMIDE 20 MG TABLET PO (09:10)
[2024-11-07] MEDS: AMOXICILLIN/CLAVULANATE K 875-125 MG TAB 1 TABLET PO ×2 (09:11→21:38)
[2024-11-07] MEDS: PANTOPRAZOLE 40 MG TABLET PO ×2 (09:12→21:38)
[2024-11-07] MEDS: POLYSACCHARIDE IRON COMPLEX 150 MG CAPSULE PO ×2 (09:12→17:15)
[2024-11-07] MEDS: POTASSIUM CHLORIDE 20 MEQ ER TABLET PO ×2 (09:12→17:14)
[2024-11-07] MEDS: LOSARTAN POTASSIUM 100 MG TABLET PO (09:12)
[2024-11-07] MEDS: SIMVASTATIN 20 MG TABLET PO (09:12)
[2024-11-07] MEDS: hydrALAZINE 5 MG TABLET PO ×4 (09:12→21:38)
[2024-11-07] MEDS: polyethylene glycoL 3350 17 GM POWD.PACK PO (09:12)
[2024-11-07] MEDS: ISOSORBIDE MONONITRATE 30 MG TAB.ER.24H PO (09:12)
[2024-11-07 11:35] VITALS: BP 149/82
[2024-11-07 11:53] LABS: Glucose Point of Care 213 mg/dl (65-105)
[2024-11-07] MEDS: INSULIN ASPART (*BKC) 100 UNITS/ML SUB-Q ×2 (13:13→21:35)
--- NOTE | 2024-11-07 13:41 | PM.PNNEP ---
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 Subjective Date/time seen: 11/07/24 13:41 Interval history: Follow-up for acute on chronic hyponatremia. Sodium continue to improve with current interventions/therapy; no other acute issues or problems voiced; no apparent distress noted at the time of my visit. Exam Narrative: General: elderly but WD/WN female in NAD Heart: normal S1 and S2; no rub Lungs: clear to auscultation Abdomen: soft, nontender, nondistended, positive bowel sounds Extremities: no cyanosis or clubbing; no edema Skin: no nodules Objective Data Vital Signs Vital Signs: Vital Signs Temp Pulse Resp BP Pulse Ox O2 Del Method 11/07/24 13:00 97.0 F L 91 18 139/74 99 11/07/24 11:35 149/82 H 11/07/24 09:15 Room Air 11/07/24 06:06 170/82 H 11/07/24 05:35 98.2 F 75 20 185/90 H 100 11/06/24 22:00 98.1 F 73 20 176/78 H 100 11/06/24 20:00 Room Air Intake/Output Intake/Output: Intake & Output 11/04/24 11/05/24 11/06/24 11/07/24 23:59 23:59 23:59 23:59 Intake Total 2664 845 1560 480 Balance 2664 845 1560 480 Meds/Results Medications: Active Medications Generic Name Dose Route Start Last Admin Trade Name Freq PRN Reason Stop Dose Admin Acetaminophen 650 mg 11/02/24 14:02 Acetaminophen 325 Mg Tablet PO Q4H PRN Mild Pain (1-3) or Fever Hydrocodone Bitart/Acetaminophen 1 tab 11/02/24 14:29 11/06/24 21:47 Hydrocodone/Acetaminophen (*Crx) 5-325 Mg Tablet PO 1 tab Q4H PRN Administration Pain Rated 4-6 Amlodipine Besylate 10 mg 11/07/24 09:00 11/07/24 09:10 Amlodipine Besylate 10 Mg Tablet PO 10 mg DAILY ROXANNE Administration Amoxicillin/Clavulanate Potassium 1 tablet 11/07/24 09:00 11/07/24 09:11 Amoxicillin/Clavulanate K 875-125 Mg Tab PO 11/09/24 21:01 1 tablet Q12HR ROXANNE Administration Dextrose 12.5 gm 11/03/24 00:32 Dextrose 50% 25 Gm/50 Ml Syringe IV PUSH PRN PRN Hypoglycemia Protocol Fenofibrate 160 mg 11/03/24 21:00 11/06/24 21:47 Fenofibrate 160 Mg Tablet PO 160 mg QHS ROXANNE Administration Glucagon 1 mg 11/03/24 00:32 Glucagon For Inj 1 Mg Vial IM PRN PRN Hypoglycemia Protocol Glucose 15 gm 11/03/24 00:32 Glucose Oral Gel 15 Gm Of Glucse In 37.5 Gm Tube PO PRN PRN Hypoglycemia Protocol Hydralazine HCl 5 mg 11/07/24 09:00 11/07/24 13:16 Hydralazine 5 Mg Tablet PO 5 mg QID ROXANNE Administration Hydroxychloroquine Sulfate 300 mg 11/03/24 09:00 11/07/24 09:10 Hydroxychloroquine Sulfate 200 Mg Tablet PO 300 mg BIDWM ROXANNE Administration Dextrose 1,000 mls @ 100 mls/hr 11/03/24 00:32 Dextrose 5% 1,000 Ml IVPB PRN PRN Hypoglycemia Protocol Insulin Aspart 2 - 5 units 11/03/24 08:00 11/07/24 13:13 Insulin Aspart (*Bkc) 100 Units/Ml SUB-Q 2 units TIDWM ROXANNE Administration Protocol Insulin Aspart 1 - 2 units 11/03/24 21:00 11/07/24 02:13 Insulin Aspart (*Bkc) 100 Units/Ml SUB-Q Not Given HS [facility] Protocol Insulin Glargine 11 units 11/03/24 21:00 11/06/24 21:46 Insulin Glargine (*Bkc) 100 Units/Ml 0.15 units/kg (11 units) 11 units SUB-Q Administration HS [facility] Isosorbide Mononitrate 30 mg 11/03/24 09:00 11/07/24 09:12 Isosorbide Mononitrate 30 Mg Tab.Er.24h PO 30 mg DAILY ROXANNE Administration Leflunomide 20 mg 11/03/24 09:00 11/07/24 09:10 Leflunomide 20 Mg Tablet PO 20 mg DAILY ROXANNE Administration Levothyroxine Sodium 75 mcg 11/03/24 06:30 11/07/24 05:04 Levothyroxine Sodium 75 Mcg Tablet PO 75 mcg DAILY@0630 ROXANNE Administration Losartan Potassium 100 mg 11/03/24 09:00 11/07/24 09:12 Losartan Potassium 100 Mg Tablet PO 100 mg DAILY ROXANNE Administration Morphine Sulfate 2 mg 11/02/24 14:29 11/05/24 01:10 Morphine Sulfate (*Crx) 2 Mg/Ml Inj IV PUSH 2 mg Q2H PRN Administration Pain Rated 7-10 Ondansetron HCl 4 mg 11/04/24 06:03 Ondansetron Inj 4 Mg/2 Ml Vial IV PUSH Q6H PRN Nausea And Vomiting Pantoprazole Sodium 40 mg 11/03/24 09:00 11/07/24 09:12 Pantoprazole 40 Mg Tablet PO 40 mg Q12HR ROXANNE Administration Polyethylene Glycol 17 gm 11/06/24 12:10 11/07/24 09:12 Polyethylene Glycol 3350 17 Gm Powd.Pack PO 17 gm QAM ROXANNE Administration Polysaccharide Iron Complex 150 mg 11/03/24 17:00 11/07/24 09:12 Polysaccharide Iron Complex 150 Mg Capsule PO 150 mg BIDWM ROXANNE Administration Potassium Chloride 20 meq 11/03/24 09:00 11/07/24 09:12 Potassium Chloride 20 Meq Er Tablet PO 20 meq BID ROXANNE Administration Simvastatin 20 mg 11/03/24 09:00 11/07/24 09:12 Simvastatin 20 Mg Tablet PO 20 mg DAILY ROXANNE Administration Radiology Results: ITS Impressions Chest X-Ray 11/02/24 11:23 IMPRESSION: Bilateral hyperinflation suggesting COPD No active cardiopulmonary disease Aortic calcification and tortuosity Osteopenia Bilateral glenohumeral osteoarthritis Labs Labs: Laboratory Tests 11/07/24 05:54 11/07/24 05:54 Calcium 8.8 Total Bilirubin 0.5 AST 31 ALT 35 Alkaline Phosphatase 168 H Total Protein 6.0 L Albumin 3.6
[2024-11-07 14:00] VITALS: BP 139/74; PULSE 91; RESP 18; TEMP 36.1; O2SAT 99
--- NOTE | 2024-11-07 15:08 | PM.IMPN ---
Progress Note: A&P Assessment and Plan (1) Acute hyponatremia: Code(s): E87.1 - Hypo-osmolality and hyponatremia Status: Acute Assessment and Plan: Admission sodium level of 116. Nephrology consulted Presumed etiology hydrochlorothiazide Free water restriction (2) Body aches: Code(s): R52 - Pain, unspecified Status: Acute Assessment and Plan: Cont. current, intermittently controlled. (3) Leukocytosis: Code(s): D72.829 - Elevated white blood cell count, unspecified Status: Acute Assessment and Plan: 33 KA on admission. Urinalysis with 6-10 WBC in urine Urine culture mixed genital yaw Started on ceftriaxone on admission is 11/03/2024 (4) Hypertension: Code(s): I10 - Essential (primary) hypertension Status: Acute Assessment and Plan: - Elevated bp this am, will trend, consider uptitrating norvasc if remains high. (5) Diabetes: Code(s): E11.9 - Type 2 diabetes mellitus without complications Status: Acute Assessment and Plan: - Cont. Accu-Cheks a.c. HS with corrective insulin. - Diabetic diet. - Holding glipizide, metformin. (6) Arthritis: Code(s): M19.90 - Unspecified osteoarthritis, unspecified site Status: Acute Assessment and Plan: - Encouraged to request prns when having pain. Stable. Continue hydrochloroquine and Arava (7) Hypothyroidism: Code(s): E03.9 - Hypothyroidism, unspecified Status: Acute Assessment and Plan: TSH 1.7, Continue Synthroid (8) Microcytic anemia: Code(s): D50.9 - Iron deficiency anemia, unspecified Status: Acute Assessment and Plan: - Anemic on presentation with hgb 8.2, steadily downtrending, to 6.7. Needing transfusion - check ferritin, tibc/iron/sat and fobt. - Consider GI consultation pending fobt results which is still pending. - Hold lovenox. H&H remained stable Plan DVT prophylaxis SCDs Code status full code Subjective Date/time seen: 11/07/24 15:08 Interval history: Started on Hydralazine 5mg PO QID and increased Amlodipine 5 mg to 10 mg PO QD.Possible discharge tomorrow. Review of Systems Review of Systems: 12 systems were reviewed and are negative except for as per HPI. All systems reviewed & are unremarkable except as noted in HPI and below Exam Narrative: GENERAL APPEARANCE: Appears to be in no acute distress. HEAD: normocephalic atraumatic EYES: PERRL, EOMI. Vision grossly intact. ENT: Hearing grossly intact, no nasal discharge NECK: Neck supple, trachea midline. CARDIAC: Normal S1/S2. Rhythm is regular. No murmurs, rubs, or gallops. No cyanosis or pallor. Extremities are warm and well perfused. LUNGS: Clear to auscultation without rales, rhonchi, wheezing or diminished breath sounds. Respirations even and unlabored. ABDOMEN: BS positive x 4 quadrants. Soft, nondistended, nontender. No guarding or rebound. MSK: No joint tenderness/swelling, fair strength in all extremities. PERIPHERAL VASCULAR: Peripheral pulses palpable. Normal perfusion, cap refill <2 seconds. No edema. NEURO: Follows commands. No focal deficits. SKIN: [place] without lesions or eruptions. PSYCH: Stable, no paranoia or delusional thinking. Objective Data Vital Signs Vital Signs: Vital Signs - 24 hr 11/06/24 20:00 11/06/24 22:00 11/07/24 05:35 Temperature 98.1 F 98.2 F Pulse Rate 73 75 Respiratory Rate 20 20 Blood Pressure 176/78 H 185/90 H Pulse Oximetry 100 100 Oxygen Delivery Room Air 11/07/24 06:06 11/07/24 09:15 11/07/24 11:35 Temperature Pulse Rate Respiratory Rate Blood Pressure 170/82 H 149/82 H Pulse Oximetry Oxygen Delivery Room Air 11/07/24 14:00 Temperature 97.0 F L Pulse Rate 91 Respiratory Rate 18 Blood Pressure 139/74 Pulse Oximetry 99 Oxygen Delivery Intake/Output Intake/Output: Intake & Output 11/04/24 11/05/24 11/06/24 11/07/24 23:59 23:59 23:59 23:59 Intake Total 2664 845 1560 480 Balance 2664 845 1560 480 Meds/Results Medications: Active Medications Generic Name Dose Route Start Last Admin Trade Name Freq PRN Reason Stop Dose Admin Acetaminophen 650 mg 11/02/24 14:02 Acetaminophen 325 Mg Tablet PO Q4H PRN Mild Pain (1-3) or Fever Hydrocodone Bitart/Acetaminophen 1 tab 11/02/24 14:29 11/06/24 21:47 Hydrocodone/Acetaminophen (*Crx) 5-325 Mg Tablet PO 1 tab Q4H PRN Administration Pain Rated 4-6 Amlodipine Besylate 10 mg 11/07/24 09:00 11/07/24 09:10 Amlodipine Besylate 10 Mg Tablet PO 10 mg DAILY ROXANNE Administration Amoxicillin/Clavulanate Potassium 1 tablet 11/07/24 09:00 11/07/24 09:11 Amoxicillin/Clavulanate K 875-125 Mg Tab PO 11/09/24 21:01 1 tablet Q12HR ROXANNE Administration Dextrose 12.5 gm 11/03/24 00:32 Dextrose 50% 25 Gm/50 Ml Syringe IV PUSH PRN PRN Hypoglycemia Protocol Fenofibrate 160 mg 11/03/24 21:00 11/06/24 21:47 Fenofibrate 160 Mg Tablet PO 160 mg QHS ROXANNE Administration Glucagon 1 mg 11/03/24 00:32 Glucagon For Inj 1 Mg Vial IM PRN PRN Hypoglycemia Protocol Glucose 15 gm 11/03/24 00:32 Glucose Oral Gel 15 Gm Of Glucse In 37.5 Gm Tube PO PRN PRN Hypoglycemia Protocol Hydralazine HCl 5 mg 11/07/24 09:00 11/07/24 13:16 Hydralazine 5 Mg Tablet PO 5 mg QID ROXANNE Administration Hydroxychloroquine Sulfate 300 mg 11/03/24 09:00 11/07/24 09:10 Hydroxychloroquine Sulfate 200 Mg Tablet PO 300 mg BIDWM ROXANNE Administration Dextrose 1,000 mls @ 100 mls/hr 11/03/24 00:32 Dextrose 5% 1,000 Ml IVPB PRN PRN Hypoglycemia Protocol Insulin Aspart 2 - 5 units 11/03/24 08:00 11/07/24 13:13 Insulin Aspart (*Bkc) 100 Units/Ml SUB-Q 2 units TIDWM ROXANNE Administration Protocol Insulin Aspart 1 - 2 units 11/03/24 21:00 11/07/24 02:13 Insulin Aspart (*Bkc) 100 Units/Ml SUB-Q Not Given HS [facility] Protocol Insulin Glargine 11 units 11/03/24 21:00 11/06/24 21:46 Insulin Glargine (*Bkc) 100 Units/Ml 0.15 units/kg (11 units) 11 units SUB-Q Administration HS ROXANNE Isosorbide Mononitrate 30 mg 11/03/24 09:00 11/07/24 09:12 Isosorbide Mononitrate 30 Mg Tab.Er.24h PO 30 mg DAILY ROXANNE Administration Leflunomide 20 mg 11/03/24 09:00 11/07/24 09:10 Leflunomide 20 Mg Tablet PO 20 mg DAILY ROXANNE Administration Levothyroxine Sodium 75 mcg 11/03/24 06:30 11/07/24 05:04 Levothyroxine Sodium 75 Mcg Tablet PO 75 mcg DAILY@0630 ROXANNE Administration Losartan Potassium 100 mg 11/03/24 09:00 11/07/24 09:12 Losartan Potassium 100 Mg Tablet PO 100 mg DAILY ROXANNE Administration Morphine Sulfate 2 mg 11/02/24 14:29 11/05/24 01:10 Morphine Sulfate (*Crx) 2 Mg/Ml Inj IV PUSH 2 mg Q2H PRN Administration Pain Rated 7-10 Ondansetron HCl 4 mg 11/04/24 06:03 Ondansetron Inj 4 Mg/2 Ml Vial IV PUSH Q6H PRN Nausea And Vomiting Pantoprazole Sodium 40 mg 11/03/24 09:00 11/07/24 09:12 Pantoprazole 40 Mg Tablet PO 40 mg Q12HR ROXANNE Administration Polyethylene Glycol 17 gm 11/06/24 12:10 11/07/24 09:12 Polyethylene Glycol 3350 17 Gm Powd.Pack PO 17 gm QAM ROXANNE Administration Polysaccharide Iron Complex 150 mg 11/03/24 17:00 11/07/24 09:12 Polysaccharide Iron Complex 150 Mg Capsule PO 150 mg BIDWM ROXANNE Administration Potassium Chloride 20 meq 11/03/24 09:00 11/07/24 09:12 Potassium Chloride 20 Meq Er Tablet PO 20 meq BID ROXANNE Administration Simvastatin 20 mg 11/03/24 09:00 11/07/24 09:12 Simvastatin 20 Mg Tablet PO 20 mg DAILY ROXANNE Administration Radiology Results: ITS Impressions Chest X-Ray 11/02/24 11:23 IMPRESSION: Bilateral hyperinflation suggesting COPD No active cardiopulmonary disease Aortic calcification and tortuosity Osteopenia Bilateral glenohumeral osteoarthritis Labs Labs: Laboratory Results - last 24 hr 11/05/24 11/06/24 11/06/24 19:07 17:01 18:23 WBC RBC Hgb Hct MCV MCH MCHC RDW Plt Count MPV Sodium Potassium Chloride Carbon Dioxide Anion Gap BUN Creatinine Estim Creat Clear Calc Estimated GFR Glucose POC Capillary Glucose 213 H Calcium Total Bilirubin AST ALT Alkaline Phosphatase Total Protein Albumin Ur Random Creatinine 54 U Random Total Protein 48 H Protein/Creatinin Ratio 889 H Stl Occult Blood (IFOB) Negative 11/06/24 11/07/24 11/07/24 21:14 05:54 07:49 WBC 7.4 RBC 4.53 Hgb 8.7 L Hct 29.5 L MCV 65.1 L MCH 19.2 L MCHC 29.5 L RDW 21.1 H Plt Count 316 MPV 9.5 Sodium 129 L Potassium 4.0 Chloride 99 Carbon Dioxide 23 Anion Gap 7 BUN 9 Creatinine 0.73 Estim Creat Clear Calc 59 Estimated GFR > 60 Glucose 128 H POC Capillary Glucose 149 H 154 H Calcium 8.8 Total Bilirubin 0.5 AST 31 ALT 35 Alkaline Phosphatase 168 H Total Protein 6.0 L Albumin 3.6 Ur Random Creatinine U Random Total Protein Protein/Creatinin Ratio Stl Occult Blood (IFOB) 11/07/24 11:49 WBC RBC Hgb Hct MCV MCH MCHC RDW Plt Count MPV Sodium Potassium Chloride Carbon Dioxide Anion Gap BUN Creatinine Estim Creat Clear Calc Estimated GFR Glucose POC Capillary Glucose 213 H Calcium Total Bilirubin AST ALT Alkaline Phosphatase Total Protein Albumin Ur Random Creatinine U Random Total Protein Protein/Creatinin Ratio Stl Occult Blood (IFOB) Quality VTE Prophylaxis VTE prophylaxis: mechanical ordered Hospitalist MIPS Advance Care Plan I have confirmed that the patient's Advanced Care Plan is present, code status is documented, or surrogate decision maker is listed in patient medical record.: Yes Medication Reconciliation I have utilized all available resources to obtain, update and review the patients current medications (includes all prescriptions, OTC, herbals, cannabis, and nutritional supplements).: Yes
[2024-11-07 16:33] LABS: Glucose Point of Care 160 mg/dl (65-105)
--- NOTE | 2024-11-07 20:19 | PC.NURSE ---
Patient called nurse to room. Patient had significant amount of blood and clots in stool. Notified Dr. Baez. New order received for stat H&H.
[2024-11-07 20:34] LABS: Glucose Point of Care 219 mg/dl (65-105)
[2024-11-07 21:14] LABS: Hematocrit 30.8 % (37.0-47.0); Hemoglobin 9.3 g/dL (12.0-15.0)
[2024-11-07] MEDS: INSULIN GLARGINE (*BKC) 100 UNITS/ML 11 UNITS SUB-Q (21:37)
[2024-11-07] MEDS: FENOFIBRATE 160 MG TABLET PO (21:38)
[2024-11-07 21:44] VITALS: BP 155/75; PULSE 79; RESP 18; TEMP 36.4; O2SAT 100
[2024-11-08] MEDS: LEVOTHYROXINE SODIUM 75 MCG TABLET PO (05:49)
[2024-11-08 06:18] VITALS: BP 170/82
[2024-11-08 06:54] VITALS: PULSE 74; RESP 16; TEMP 37; O2SAT 100
[2024-11-08 07:21] LABS: Hemoglobin 8.6 g/dL (12.0-15.0); Mean Corpuscular HGB Conc 29.7 g/dl (32-36); Mean Corpuscular Hemoglobin 19.6 pg (26-34); Mean Corpuscular Volume 66.2 fl (80-100); Mean Platelet Volume 9.6 fl (7.4-10.4); Platelet Count Result 329 k/mm3 (150-375); Red Blood Count 4.38 M/mm3 (4.2-5.4); Red Cell Distribution Width 21.5 % (11.5-14.5); White Blood Count 9.3 K/mm3 (4.5-10.0)
[2024-11-08 07:33] LABS: Alanine Aminotransferase 31 U/L (6-35); Albumin Level 3.5 g/dL (3.5-5.1); Alkaline Phosphatase 157 U/L (38-126); Anion Gap 5 mmol/L (4-12); Aspartate Amino Transferase 22 U/L (14-36); Bilirubin,Total 0.5 mg/dL (0.2-1.3); Blood Urea Nitrogen 11 mg/dL (7-17); Calcium 8.9 mg/dL (8.4-10.2); Carbon Dioxide 25 mmol/L (22-30); Chloride 102 mmol/L (98-107); Estimated CRCL calculation 53 ml/min; Estimated Glomerular Filt Rate > 60; Glucose 146 mg/dL (65-110); Potassium 4.6 mmol/L (3.4-5.0); Sodium 132 mmol/L (137-145)
[2024-11-08 08:04] LABS: Glucose Point of Care 178 mg/dl (65-105)
[2024-11-08] MEDS: LEFLUNOMIDE 20 MG TABLET PO (10:21)
[2024-11-08] MEDS: AMOXICILLIN/CLAVULANATE K 875-125 MG TAB 1 TABLET PO ×2 (10:21→21:08)
[2024-11-08] MEDS: POTASSIUM CHLORIDE 20 MEQ ER TABLET PO ×2 (10:22→18:49)
[2024-11-08] MEDS: POLYSACCHARIDE IRON COMPLEX 150 MG CAPSULE PO ×2 (10:22→18:49)
[2024-11-08] MEDS: SIMVASTATIN 20 MG TABLET PO (10:22)
[2024-11-08] MEDS: polyethylene glycoL 3350 17 GM POWD.PACK PO (10:22)
[2024-11-08] MEDS: ISOSORBIDE MONONITRATE 30 MG TAB.ER.24H PO (10:22)
[2024-11-08] MEDS: PANTOPRAZOLE 40 MG TABLET PO ×2 (10:22→21:09)
[2024-11-08] MEDS: hydrALAZINE 10 MG TABLET PO ×4 (10:22→21:10)
[2024-11-08] MEDS: amLODIPine BESYLATE 10 MG TABLET PO (10:23)
[2024-11-08] MEDS: HYDROXYCHLOROQUINE SULFATE 200 MG TABLET 300 MG PO ×2 (10:23→18:49)
[2024-11-08] MEDS: LOSARTAN POTASSIUM 100 MG TABLET PO (10:23)
--- NOTE | 2024-11-08 11:06 | PCNWS ---
Weekly nutritional screen. Patient is tolerating current diet with adequate intake 50-100%, mostly 80-100%. No weight loss reported. No nutritional needs at this time.
--- NOTE | 2024-11-08 11:12 | P.PNNP_ITS ---
Progress Note: A&P Assessment and Plan (1) Hyponatremia: Code(s): E87.1 - Hypo-osmolality and hyponatremia Status: Acute Assessment and Plan: * slow improvement noted (if not back to baseline) * acute on chronic * from review of outside records, baseline sodium runs around 129 - 136mmol/L since 2019 * last blood work in August 2024 -- sdoium was 129mmol/L * appears relatively asymptomatic * risk factors for low sodium: * prerenal factors (poor oral intake) * HCTZ use * chronic pain * PPI use * known thyroid disease * evaluation to date noted: * TSH and cortisol okay * no evidence of DIE BAKER or lung disease * SPEP/UPEP and serum/urine osmo pending * urine electrolytes prerenal * Sodium level is 132 today, might be a recent personal best. * She is on a stable regimen. (2) Hypertension: Code(s): I10 - Essential (primary) hypertension Status: Chronic Assessment and Plan: * Blood pressure running 130-180. * Will change amlodipine to nifedipine * follow trend of hemodynamics (3) Diabetes: Code(s): E11.9 - Type 2 diabetes mellitus without complications Status: Acute Assessment and Plan: * follow accu-cheks * glycemic control per hospitalist Will continue to follow. Subjective Date/time seen: 11/08/24 11:12 Interval history: Patient feels okay. She does have some comes with her bowels. Exam Narrative: General: elderly but WD/WN female in NAD Heart: normal S1 and S2; no rub Lungs: clear to auscultation Abdomen: soft, nontender, nondistended, positive bowel sounds Extremities: no cyanosis or clubbing; no edema Skin: no nodules Objective Data Vital Signs Vital Signs: Vital Signs - 24 hr 11/07/24 11:35 11/07/24 14:00 11/07/24 20:00 Temperature 97.0 F L Pulse Rate 91 Respiratory Rate 18 Blood Pressure 149/82 H 139/74 Pulse Oximetry 99 Oxygen Delivery Room Air 11/07/24 21:44 11/08/24 06:18 11/08/24 06:54 Temperature 97.5 F L 98.6 F Pulse Rate 79 74 Respiratory Rate 18 16 Blood Pressure 155/75 H 170/82 H Pulse Oximetry 100 100 Oxygen Delivery Intake/Output Intake/Output: Intake & Output 11/05/24 11/06/24 11/07/24 11/08/24 23:59 23:59 23:59 23:59 Intake Total 845 1560 720 440 Balance 845 1560 720 440 Meds/Results Medications: Active Medications Generic Name Dose Route Start Last Admin Trade Name Freq PRN Reason Stop Dose Admin Acetaminophen 650 mg 11/02/24 14:02 Acetaminophen 325 Mg Tablet PO Q4H PRN Mild Pain (1-3) or Fever Hydrocodone Bitart/Acetaminophen 1 tab 11/02/24 14:29 11/06/24 21:47 Hydrocodone/Acetaminophen (*Crx) 5-325 Mg Tablet PO 1 tab Q4H PRN Administration Pain Rated 4-6 Amlodipine Besylate 10 mg 11/07/24 09:00 11/08/24 10:23 Amlodipine Besylate 10 Mg Tablet PO 10 mg DAILY ROXANNE Administration Amoxicillin/Clavulanate Potassium 1 tablet 11/07/24 09:00 11/08/24 10:21 Amoxicillin/Clavulanate K 875-125 Mg Tab PO 11/09/24 21:01 1 tablet Q12HR ROXANNE Administration Dextrose 12.5 gm 11/03/24 00:32 Dextrose 50% 25 Gm/50 Ml Syringe IV PUSH PRN PRN Hypoglycemia Protocol Fenofibrate 160 mg 11/03/24 21:00 11/07/24 21:38 Fenofibrate 160 Mg Tablet PO 160 mg QHS ROXANNE Administration Glucagon 1 mg 11/03/24 00:32 Glucagon For Inj 1 Mg Vial IM PRN PRN Hypoglycemia Protocol Glucose 15 gm 11/03/24 00:32 Glucose Oral Gel 15 Gm Of Glucse In 37.5 Gm Tube PO PRN PRN Hypoglycemia Protocol Hydralazine HCl 10 mg 11/08/24 09:00 11/08/24 10:22 Hydralazine 10 Mg Tablet PO 10 mg QID ROXANNE Administration Hydroxychloroquine Sulfate 300 mg 11/03/24 09:00 11/08/24 10:23 Hydroxychloroquine Sulfate 200 Mg Tablet PO 300 mg BIDWM ROXANNE Administration Dextrose 1,000 mls @ 100 mls/hr 11/03/24 00:32 Dextrose 5% 1,000 Ml IVPB PRN PRN Hypoglycemia Protocol Insulin Aspart 2 - 5 units 11/03/24 08:00 11/08/24 08:44 Insulin Aspart (*Bkc) 100 Units/Ml SUB-Q Not Given TIDWM ROXANNE Protocol Insulin Aspart 1 - 2 units 11/03/24 21:00 11/07/24 21:35 Insulin Aspart (*Bkc) 100 Units/Ml SUB-Q 1 units HS ROXANNE Administration Protocol Insulin Glargine 11 units 11/03/24 21:00 11/07/24 21:37 Insulin Glargine (*Bkc) 100 Units/Ml 0.15 units/kg (11 units) 11 units SUB-Q Administration HS [facility] Isosorbide Mononitrate 30 mg 11/03/24 09:00 11/08/24 10:22 Isosorbide Mononitrate 30 Mg Tab.Er.24h PO 30 mg DAILY ROXANNE Administration Leflunomide 20 mg 11/03/24 09:00 11/08/24 10:21 Leflunomide 20 Mg Tablet PO 20 mg DAILY ROXANNE Administration Levothyroxine Sodium 75 mcg 11/03/24 06:30 11/08/24 05:49 Levothyroxine Sodium 75 Mcg Tablet PO 75 mcg DAILY@0630 ROXANNE Administration Losartan Potassium 100 mg 11/03/24 09:00 11/08/24 10:23 Losartan Potassium 100 Mg Tablet PO 100 mg DAILY ROXANNE Administration Morphine Sulfate 2 mg 11/02/24 14:29 11/05/24 01:10 Morphine Sulfate (*Crx) 2 Mg/Ml Inj IV PUSH 2 mg Q2H PRN Administration Pain Rated 7-10 Ondansetron HCl 4 mg 11/04/24 06:03 Ondansetron Inj 4 Mg/2 Ml Vial IV PUSH Q6H PRN Nausea And Vomiting Pantoprazole Sodium 40 mg 11/03/24 09:00 11/08/24 10:22 Pantoprazole 40 Mg Tablet PO 40 mg Q12HR ROXANNE Administration Polyethylene Glycol 17 gm 11/06/24 12:10 11/08/24 10:22 Polyethylene Glycol 3350 17 Gm Powd.Pack PO 17 gm QAM ROXANNE Administration Polysaccharide Iron Complex 150 mg 11/03/24 17:00 11/08/24 10:22 Polysaccharide Iron Complex 150 Mg Capsule PO 150 mg BIDWM ROXANNE Administration Potassium Chloride 20 meq 11/03/24 09:00 11/08/24 10:22 Potassium Chloride 20 Meq Er Tablet PO 20 meq BID ROXANNE Administration Simvastatin 20 mg 11/03/24 09:00 11/08/24 10:22 Simvastatin 20 Mg Tablet PO 20 mg DAILY ROXANNE Administration Radiology Results: ITS Impressions Chest X-Ray 11/02/24 11:23 IMPRESSION: Bilateral hyperinflation suggesting COPD No active cardiopulmonary disease Aortic calcification and tortuosity Osteopenia Bilateral glenohumeral osteoarthritis Labs Labs: Laboratory Results - last 24 hr 11/07/24 11/07/24 11/07/24 11:49 16:26 20:27 WBC RBC Hgb Hct MCV MCH MCHC RDW Plt Count MPV Sodium Potassium Chloride Carbon Dioxide Anion Gap BUN Creatinine Estim Creat Clear Calc Estimated GFR Glucose POC Capillary Glucose 213 H 160 H 219 H Calcium Total Bilirubin AST ALT Alkaline Phosphatase Total Protein Albumin 11/07/24 11/08/24 11/08/24 21:08 06:48 07:50 WBC 9.3 RBC 4.38 Hgb 9.3 L 8.6 L Hct 30.8 L 29.0 L MCV 66.2 L MCH 19.6 L MCHC 29.7 L RDW 21.5 H Plt Count 329 MPV 9.6 Sodium 132 L Potassium 4.6 Chloride 102 Carbon Dioxide 25 Anion Gap 5 BUN 11 Creatinine 0.82 Estim Creat Clear Calc 53 Estimated GFR > 60 Glucose 146 H POC Capillary Glucose 178 H Calcium 8.9 Total Bilirubin 0.5 AST 22 ALT 31 Alkaline Phosphatase 157 H Total Protein 6.0 L Albumin 3.5
[2024-11-08 11:41] LABS: IFOB Positive Control Positive; Immunochemical Fecal Occult Bl Positive (N)
[2024-11-08 11:52] LABS: Glucose Point of Care 205 mg/dl (65-105)
--- NOTE | 2024-11-08 12:57 | PM.IMPN ---
Progress Note: A&P Assessment and Plan (1) Acute hyponatremia: Code(s): E87.1 - Hypo-osmolality and hyponatremia Status: Acute Assessment and Plan: Admission sodium level of 116. Nephrology consulted Presumed etiology hydrochlorothiazide Free water restriction (2) Body aches: Code(s): R52 - Pain, unspecified Status: Acute Assessment and Plan: Cont. current, intermittently controlled. (3) Leukocytosis: Code(s): D72.829 - Elevated white blood cell count, unspecified Status: Acute Assessment and Plan: 33 KA on admission. Urinalysis with 6-10 WBC in urine Urine culture mixed genital yaw Started on ceftriaxone on admission is 11/03/2024 (4) Hypertension: Code(s): I10 - Essential (primary) hypertension Status: Chronic Assessment and Plan: - Elevated bp this am, will trend, consider uptitrating norvasc if remains high. (5) Diabetes: Code(s): E11.9 - Type 2 diabetes mellitus without complications Status: Acute Assessment and Plan: - Cont. Accu-Cheks a.c. HS with corrective insulin. - Diabetic diet. - Holding glipizide, metformin. (6) Arthritis: Code(s): M19.90 - Unspecified osteoarthritis, unspecified site Status: Acute Assessment and Plan: - Encouraged to request prns when having pain. Stable. Continue hydrochloroquine and Arava (7) Hypothyroidism: Code(s): E03.9 - Hypothyroidism, unspecified Status: Acute Assessment and Plan: TSH 1.7, Continue Synthroid (8) Microcytic anemia: Code(s): D50.9 - Iron deficiency anemia, unspecified Status: Acute Assessment and Plan: - Anemic on presentation with hgb 8.2, steadily downtrending, to 6.7. Needing transfusion - check ferritin, tibc/iron/sat and fobt. - Consider GI consultation pending fobt results which is still pending. - Hold lovenox. H&H remained stable Plan DVT prophylaxis SCDs Code status full code Subjective Date/time seen: 11/08/24 12:57 Interval history: Patient reports of having bloody bowel movement this morning.Consulted GI and appreciate recs. hyponatremia resolved. Will complete Amox-Clav for UTI.Ordered H and H Review of Systems Review of Systems: 12 systems were reviewed and are negative except for as per HPI. All systems reviewed & are unremarkable except as noted in HPI and below Exam Narrative: GENERAL APPEARANCE: Appears to be in no acute distress. HEAD: normocephalic atraumatic EYES: PERRL, EOMI. Vision grossly intact. ENT: Hearing grossly intact, no nasal discharge NECK: Neck supple, trachea midline. CARDIAC: Normal S1/S2. Rhythm is regular. No murmurs, rubs, or gallops. No cyanosis or pallor. Extremities are warm and well perfused. LUNGS: Clear to auscultation without rales, rhonchi, wheezing or diminished breath sounds. Respirations even and unlabored. ABDOMEN: BS positive x 4 quadrants. Soft, nondistended, nontender. No guarding or rebound. MSK: No joint tenderness/swelling, fair strength in all extremities. PERIPHERAL VASCULAR: Peripheral pulses palpable. Normal perfusion, cap refill <2 seconds. No edema. NEURO: Follows commands. No focal deficits. SKIN: [place] without lesions or eruptions. PSYCH: Stable, no paranoia or delusional thinking. Objective Data Vital Signs Vital Signs: Vital Signs - 24 hr 11/07/24 14:00 11/07/24 20:00 11/07/24 21:44 Temperature 97.0 F L 97.5 F L Pulse Rate 91 79 Respiratory Rate 18 18 Blood Pressure 139/74 155/75 H Pulse Oximetry 99 100 Oxygen Delivery Room Air 11/08/24 06:18 11/08/24 06:54 Temperature 98.6 F Pulse Rate 74 Respiratory Rate 16 Blood Pressure 170/82 H Pulse Oximetry 100 Oxygen Delivery Intake/Output Intake/Output: Intake & Output 11/05/24 11/06/24 11/07/24 11/08/24 23:59 23:59 23:59 23:59 Intake Total 845 1560 720 440 Balance 845 1560 720 440 Meds/Results Medications: Active Medications Generic Name Dose Route Start Last Admin Trade Name Freq PRN Reason Stop Dose Admin Acetaminophen 650 mg 11/02/24 14:02 Acetaminophen 325 Mg Tablet PO Q4H PRN Mild Pain (1-3) or Fever Hydrocodone Bitart/Acetaminophen 1 tab 11/02/24 14:29 11/06/24 21:47 Hydrocodone/Acetaminophen (*Crx) 5-325 Mg Tablet PO 1 tab Q4H PRN Administration Pain Rated 4-6 Amoxicillin/Clavulanate Potassium 1 tablet 11/07/24 09:00 11/08/24 10:21 Amoxicillin/Clavulanate K 875-125 Mg Tab PO 11/09/24 21:01 1 tablet Q12HR ROXANNE Administration Dextrose 12.5 gm 11/03/24 00:32 Dextrose 50% 25 Gm/50 Ml Syringe IV PUSH PRN PRN Hypoglycemia Protocol Fenofibrate 160 mg 11/03/24 21:00 11/07/24 21:38 Fenofibrate 160 Mg Tablet PO 160 mg QHS ROXANNE Administration Glucagon 1 mg 11/03/24 00:32 Glucagon For Inj 1 Mg Vial IM PRN PRN Hypoglycemia Protocol Glucose 15 gm 11/03/24 00:32 Glucose Oral Gel 15 Gm Of Glucse In 37.5 Gm Tube PO PRN PRN Hypoglycemia Protocol Hydralazine HCl 10 mg 11/08/24 09:00 11/08/24 10:22 Hydralazine 10 Mg Tablet PO 10 mg QID ROXANNE Administration Hydroxychloroquine Sulfate 300 mg 11/03/24 09:00 11/08/24 10:23 Hydroxychloroquine Sulfate 200 Mg Tablet PO 300 mg BIDWM ROXANNE Administration Dextrose 1,000 mls @ 100 mls/hr 11/03/24 00:32 Dextrose 5% 1,000 Ml IVPB PRN PRN Hypoglycemia Protocol Insulin Aspart 2 - 5 units 11/03/24 08:00 11/08/24 08:44 Insulin Aspart (*Bkc) 100 Units/Ml SUB-Q Not Given TIDWM [facility] Protocol Insulin Aspart 1 - 2 units 11/03/24 21:00 11/07/24 21:35 Insulin Aspart (*Bkc) 100 Units/Ml SUB-Q 1 units HS [facility] Administration Protocol Insulin Glargine 11 units 11/03/24 21:00 11/07/24 21:37 Insulin Glargine (*Bkc) 100 Units/Ml 0.15 units/kg (11 units) 11 units SUB-Q Administration [facility] Isosorbide Mononitrate 30 mg 11/03/24 09:00 11/08/24 10:22 Isosorbide Mononitrate 30 Mg Tab.Er.24h PO 30 mg DAILY [facility] Administration Leflunomide 20 mg 11/03/24 09:00 11/08/24 10:21 Leflunomide 20 Mg Tablet PO 20 mg DAILY ROXANNE Administration Levothyroxine Sodium 75 mcg 11/03/24 06:30 11/08/24 05:49 Levothyroxine Sodium 75 Mcg Tablet PO 75 mcg DAILY@0630 ROXANNE Administration Losartan Potassium 100 mg 11/03/24 09:00 11/08/24 10:23 Losartan Potassium 100 Mg Tablet PO 100 mg DAILY ROXANNE Administration Morphine Sulfate 2 mg 11/02/24 14:29 11/05/24 01:10 Morphine Sulfate (*Crx) 2 Mg/Ml Inj IV PUSH 2 mg Q2H PRN Administration Pain Rated 7-10 Nifedipine 60 mg 11/09/24 09:00 Nifedipine 30 Mg Tab.Er.24 PO QAM ROXANNE Ondansetron HCl 4 mg 11/04/24 06:03 Ondansetron Inj 4 Mg/2 Ml Vial IV PUSH Q6H PRN Nausea And Vomiting Pantoprazole Sodium 40 mg 11/03/24 09:00 11/08/24 10:22 Pantoprazole 40 Mg Tablet PO 40 mg Q12HR ROXANNE Administration Polyethylene Glycol 17 gm 11/06/24 12:10 11/08/24 10:22 Polyethylene Glycol 3350 17 Gm Powd.Pack PO 17 gm QAM ROXANNE Administration Polysaccharide Iron Complex 150 mg 11/03/24 17:00 11/08/24 10:22 Polysaccharide Iron Complex 150 Mg Capsule PO 150 mg BIDWM ROXANNE Administration Potassium Chloride 20 meq 11/03/24 09:00 11/08/24 10:22 Potassium Chloride 20 Meq Er Tablet PO 20 meq BID ROXANNE Administration Simvastatin 20 mg 11/03/24 09:00 11/08/24 10:22 Simvastatin 20 Mg Tablet PO 20 mg DAILY ROXANNE Administration Radiology Results: ITS Impressions Chest X-Ray 11/02/24 11:23 IMPRESSION: Bilateral hyperinflation suggesting COPD No active cardiopulmonary disease Aortic calcification and tortuosity Osteopenia Bilateral glenohumeral osteoarthritis Labs Labs: Laboratory Results - last 24 hr 11/07/24 11/07/24 11/07/24 16:26 20:27 21:08 WBC RBC Hgb 9.3 L Hct 30.8 L MCV MCH MCHC RDW Plt Count MPV Sodium Potassium Chloride Carbon Dioxide Anion Gap BUN Creatinine Estim Creat Clear Calc Estimated GFR Glucose POC Capillary Glucose 160 H 219 H Calcium Total Bilirubin AST ALT Alkaline Phosphatase Total Protein Albumin Stl Occult Blood (IFOB) 11/08/24 11/08/24 11/08/24 06:48 07:50 11:17 WBC 9.3 RBC 4.38 Hgb 8.6 L Hct 29.0 L MCV 66.2 L MCH 19.6 L MCHC 29.7 L RDW 21.5 H Plt Count 329 MPV 9.6 Sodium 132 L Potassium 4.6 Chloride 102 Carbon Dioxide 25 Anion Gap 5 BUN 11 Creatinine 0.82 Estim Creat Clear Calc 53 Estimated GFR > 60 Glucose 146 H POC Capillary Glucose 178 H Calcium 8.9 Total Bilirubin 0.5 AST 22 ALT 31 Alkaline Phosphatase 157 H Total Protein 6.0 L Albumin 3.5 Stl Occult Blood (IFOB) Positive H D 11/08/24 11:41 WBC RBC Hgb Hct MCV MCH MCHC RDW Plt Count MPV Sodium Potassium Chloride Carbon Dioxide Anion Gap BUN Creatinine Estim Creat Clear Calc Estimated GFR Glucose POC Capillary Glucose 205 H Calcium Total Bilirubin AST ALT Alkaline Phosphatase Total Protein Albumin Stl Occult Blood (IFOB) Quality VTE Prophylaxis VTE prophylaxis: mechanical ordered Hospitalist MIPS Advance Care Plan I have confirmed that the patient's Advanced Care Plan is present, code status is documented, or surrogate decision maker is listed in patient medical record.: Yes Medication Reconciliation I have utilized all available resources to obtain, update and review the patients current medications (includes all prescriptions, OTC, herbals, cannabis, and nutritional supplements).: Yes
[2024-11-08 14:00] VITALS: BP 129/68; PULSE 84; RESP 16; TEMP 36.7; O2SAT 100
--- NOTE | 2024-11-08 14:30 | P.CONGI_ITS ---
Assessment and Plan Assessment and plan (1) Painless rectal bleeding: Code(s): K62.5 - Hemorrhage of anus and rectum Status: Acute Assessment and Plan: the patient has recurrent rectal bleeding. Differential diagnosis includes Colorectal neoplasia,diverticular bleeding, angiodysplasia, ischemic colitis, AVMs or hemorrhoids. since the patient has never had a colonoscopy will arrange for one to be performed this coming Monday. Will leave prep instructions starting Monday evening. GI Consult Note Consult date/time: 11/08/24 14:30 HPI: Javier Hill, a 74-year-old female with a history of rheumatoid arthritis treated with biologics, was admitted on November 02, 2024, with leukocytosis attributed to a urinary tract infection. She is currently receiving antibiotic therapy. This consult is requested due to the patient's passage of levi bright red blood per rectum this morning. She has a history of intermittent bright red rectal bleeding over the past few months, occurring in the absence of abdominal pain, urgency, or diarrhea. The patient reports daily bowel movements with significant straining. She has no prior history of colonoscopy Review of Systems 2 Review of Systems: All systems reviewed & are unremarkable except as noted in HPI and below PMFSH Past Medical History Medical History Arthritis Diabetes Hyperlipidemia Hypertension Social History Social History Smoking packs per day: 1 Smoking cigarettes per day: 20.0 Smoking status: Former smoker Tobacco type: cigarettes Alcohol intake: current Drinks per week: 1 Substance use: current Substance use type: marijuana Other substance usage details: every day marijuana Last use: 11/02/2024 Do You Feel Safe in your Home?: Yes Lack of Transportation: No Lack of Food: Never True Current Housing: I Have Housing Concerned About Future Housing: No Difficulty Paying Gas/Electric Bills: No Difficulty Paying for Meds: No Currently Unemployed: No Education: Grade School Difficulty w/ Childcare or Family Care: No Spiritual care concerns: No Meds Home Medications and Allergies Home Medications ?Medication ?Instructions ?Recorded ?Confirmed ?Type amlodipine 5 mg tablet 5 mg PO DAILY 11/02/24 11/02/24 History ergocalciferol (vitamin D2) 1,250 1,250 mcg PO DAILY 11/02/24 11/02/24 History mcg (50,000 unit) capsule etanercept 50 mg/mL (1 mL) 50 mg subcut WEEKLY 11/02/24 11/02/24 History subcutaneous pen injector (Enbrejorge Drummond) fenofibrate 160 mg tablet 160 mg PO QHS 11/02/24 11/02/24 History glipizide 10 mg tablet, extended 20 mg PO DAILY 11/02/24 11/02/24 History release 24 hr hydrochlorothiazide 25 mg tablet 25 mg PO DAILY 11/02/24 11/02/24 History hydroxychloroquine 200 mg tablet 310 mg PO BID 11/02/24 11/02/24 History isosorbide mononitrate 30 mg 30 mg PO DAILY 11/02/24 11/02/24 History tablet,extended release 24 hr leflunomide 20 mg tablet (Arava) 20 mg PO DAILY 11/02/24 11/02/24 History levothyroxine 75 mcg tablet 75 mcg PO DAILY 11/02/24 11/02/24 History losartan 100 mg tablet 100 mg PO DAILY 11/02/24 11/02/24 History metformin 1,000 mg tablet 1,000 mg PO BID 11/02/24 11/02/24 History omeprazole 40 mg capsule,delayed 40 mg PO DAILY 11/02/24 11/02/24 History release potassium chloride 20 mEq 20 meq PO BID 11/02/24 11/02/24 History tablet,extended release (K-Tab) simvastatin 20 mg tablet 20 mg PO DAILY 11/02/24 11/02/24 History sitagliptin phosphate 100 mg 100 mg PO DAILY 11/02/24 11/02/24 History tablet (Januvia) tirzepatide 5 mg/0.5 mL 5 mg subcut WEEKLY 11/02/24 11/02/24 History subcutaneous pen injector (Milad) Allergies Allergy/AdvReac Type Severity Reaction Status Date / Time codeine AdvReac Unknown Nausea and Verified 11/02/24 23:35 Vomiting Vital Signs Vital Signs - 24 hr 11/07/24 20:00 11/07/24 21:44 11/08/24 06:18 Temperature 97.5 F L Pulse Rate 79 Respiratory Rate 18 Blood Pressure 155/75 H 170/82 H Pulse Oximetry 100 Oxygen Delivery Room Air 11/08/24 06:54 11/08/24 14:00 Temperature 98.6 F 98.1 F Pulse Rate 74 84 Respiratory Rate 16 16 Blood Pressure 129/68 Pulse Oximetry 100 100 Oxygen Delivery Exam 2 Narrative: GENERAL APPEARANCE: Appears to be in no acute distress. HEAD: normocephalic atraumatic EYES: PERRL, EOMI. Vision grossly intact. ENT: Hearing grossly intact, no nasal discharge NECK: Neck supple, trachea midline. CARDIAC: Normal S1/S2. Rhythm is regular. No murmurs, rubs, or gallops. No cyanosis or pallor. Extremities are warm and well perfused. LUNGS: Clear to auscultation without rales, rhonchi, wheezing or diminished breath sounds. Respirations even and unlabored. ABDOMEN: BS positive x 4 quadrants. Soft, nondistended, nontender. No guarding or rebound. MSK: No joint tenderness/swelling, fair strength in all extremities. PERIPHERAL VASCULAR: Peripheral pulses palpable. Normal perfusion, cap refill <2 seconds. No edema. NEURO: Follows commands. No focal deficits. SKIN: [place] without lesions or eruptions. PSYCH: Stable, no paranoia or delusional thinking. Results Labs 11/08/24 06:48 11/08/24 06:48 Labs: Short CBC 11/07/24 11/08/24 Range/Units 21:08 06:48 WBC 9.3 (4.5-10.0) K/mm3 Hgb 9.3 L 8.6 L (12.0-15.0) g/dL Hct 30.8 L 29.0 L (37.0-47.0) % Plt Count 329 (150-375) k/mm3 [facility] 11/08/24 06:48 Sodium 132 L Potassium 4.6 Chloride 102 Carbon Dioxide 25 BUN 11 Creatinine 0.82 Glucose 146 H Calcium 8.9 Liver Function 11/08/24 Range/Units 06:48 Total Bilirubin 0.5 (0.2-1.3) mg/dL AST 22 (14-36) U/L ALT 31 (6-35) U/L Alkaline Phosphatase 157 H (38-126) U/L Albumin 3.5 (3.5-5.1) g/dL
[2024-11-08] MEDS: INSULIN ASPART (*BKC) 100 UNITS/ML SUB-Q ×2 (14:43→18:50)
[2024-11-08 17:01] LABS: Glucose Point of Care 225 mg/dl (65-105)
[2024-11-08 17:40] LABS: Hematocrit 28.1 % (37.0-47.0); Hemoglobin 8.6 g/dL (12.0-15.0)
[2024-11-08 20:00] VITALS: PULSE 81; RESP 14; O2SAT 100
[2024-11-08 20:45] LABS: Glucose Point of Care 177 mg/dl (65-105)
[2024-11-08] MEDS: FENOFIBRATE 160 MG TABLET PO (21:09)
[2024-11-08] MEDS: INSULIN GLARGINE (*BKC) 100 UNITS/ML 11 UNITS SUB-Q (21:11)
[2024-11-08 21:35] VITALS: BP 163/78; PULSE 81; RESP 14; TEMP 36.3; O2SAT 100
[2024-11-09 05:33] VITALS: BP 173/80; PULSE 69; RESP 14; TEMP 36.7; O2SAT 100
[2024-11-09 06:49] LABS: Hematocrit 28.7 % (37.0-47.0); Hemoglobin 8.3 g/dL (12.0-15.0); Mean Corpuscular HGB Conc 28.9 g/dl (32-36); Mean Corpuscular Hemoglobin 19.7 pg (26-34); Mean Platelet Volume 9.6 fl (7.4-10.4); Platelet Count Result 302 k/mm3 (150-375); Red Blood Count 4.22 M/mm3 (4.2-5.4); Red Cell Distribution Width 21.8 % (11.5-14.5); White Blood Count 8.9 K/mm3 (4.5-10.0)
[2024-11-09 06:58] LABS: Alanine Aminotransferase 24 U/L (6-35); Albumin Level 3.5 g/dL (3.5-5.1); Alkaline Phosphatase 144 U/L (38-126); Anion Gap 10 mmol/L (4-12); Aspartate Amino Transferase 18 U/L (14-36); Bilirubin,Total 0.6 mg/dL (0.2-1.3); Blood Urea Nitrogen 10 mg/dL (7-17); Calcium 8.4 mg/dL (8.4-10.2); Carbon Dioxide 19 mmol/L (22-30); Chloride 102 mmol/L (98-107); Estimated CRCL calculation 61 ml/min; Estimated Glomerular Filt Rate > 60; Glucose 153 mg/dL (65-110); Sodium 131 mmol/L (137-145)
[2024-11-09 07:54] LABS: Glucose Point of Care 163 mg/dl (65-105)
--- OUTSIDE RECORDS SUMMARY | 2024-11-09 08:30 | XMS_ITS | Continuity of Care Document ---
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 Influenza, high-dose, trivalent, PF 8 completed Eliana Encarnacion APRN [address], [address], [place], [address], [email or web address] [facility] 06/27/2024 07:47:43 Influenza, high-dose, trivalent, PF 7 completed Eliana Encarnacion APRN [address], [address], [place], [address], [facility] [employer] [facility] 06/27/2024 07:47:43 Influenza, split virus, quadrivalent, preservative 9 completed Not Available [facility] 12/21/2022 01:24:33 Influenza, high-dose, quadrivalent, PF 2 completed Not Available [facility] 12/21/2022 01:24:34 Influenza, high-dose, quadrivalent, PF 1 completed Not Available [facility] 12/21/2022 01:24:34 Influenza, high-dose, quadrivalent, PF 0 completed Not Available [facility] 12/21/2022 01:24:34 Pneumococcal conjugate PCV 13 1 completed Eliana Encarnacion APRN [address], [address], [place], [address], [facility] [employer] [facility] 06/27/2024 07:47:33 Influenza, high-dose, trivalent, PF [address], [place], [address], [facility] [employer] [facility] 06/27/2024 07:47:33 pneumococcal polysaccharide PPV23 7 completed Not Available [facility] 12/21/2022 01:24:34 Influenza, high-dose, trivalent, PF 4 completed Eliana Encarnacion APRN [address], [address], [place], [address], [email or web address] [facility] 08/27/2024 12:02:30 Past Encounters Encounter ID Performer Location Encounter Start Date Encounter Closed Date Diagnosis/Indication Diagnosis SNOMED-CT Code Diagnosis ICD10 Code Diagnosis Note [id number] Eliana Encarnacion APRN [facility] Internal Med [address] [facility], [address] [place] [address] 08/27/2024 11:02:43 08/27/2024 12:08:13 Adult health examination 300411584 Z00.00 Screening for disorder 569913172 Z13.9 Hepatitis C screening 41 5368345 Z11.59 Administra tion of influenza vaccine 18372203 Z23 Diabetes mellitus 752405 09 E11.9 Renal insufficiency 7231 28097 N28.9 Cobalamin deficiency 190 227128 E53.8 Health Concerns Section Related Observation LastModified by Organization Detai ls LastModified Time None Recorded Concern Status LastModified by Organization Details LastModified Time None Recorded Payers Encounter Date Sequence Insurance Name Policy Number Policy Guardado Covered Member ID Guardado Member ID Guarantor Name 08/27/2024 1 [facility] (MEDICARE REPLACEMENT/A DVANTAGE - PPO) [id number] Kianna Hill [id number] Kianna Hill Notes Date Note Type Note Provider Name and Address Organization Details Recorded Time 08/27/2024 text/html Kianna presents today for her Medicare Annual Wellness visit. 06/27/2024Yadirajaydon presents today for routine check up and medication refills. Her previous provider has left the area so she would like to establish care with this provider. Eliana Encarnacion APRN [address] [facility], [address], [place], [address], [email or web address] [facility] 08/27/2024 12:05:46 OBGyn Episode No OBEpisode recorded.
--- OUTSIDE RECORDS SUMMARY | 2024-11-09 08:30 | XMS_ITS | Data Portability ---
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 Information not available 12/21/2022 In The 14 [...] Do You Have Serious Difficulty Hearing? No MIGRATION.753526 8149 Information not available 12/21/2022 What Type Of Diet Are You Following? REGULAR MIGRATION.590940 7425 Information not available 12/21/2022 What Is The Highest Grade Or Level Of School You Have Completed Or The Highest Degree You Have Received? LD18673-5 MIGRATION.996830 6928 Information not available 12/21/2022 Have There Been Any Changes To Your Family Or Social Situation? No MIGRATION.243314 8654 Information not available 12/21/2022 When Did You Quit Smoking? 16+yearssincel astcialba Information not available 06/27/2024 Are There Any Guns Present In Your Home? No MIGRATION.492143 1018 Information not available 12/21/2022 Do You Use Insect Repellent Routinely? No MIGRATION.934077 3890 Information not available 12/21/2022 What Was The Date Of Your Most Recent Tobacco Screening? 08/27/2024 Information not available 08/27/2024 How Many Children Do You Have? 1 Information not available 06/27/2024 Have You Ever Been Counseled For Unhealthy Alcohol Use? No MIGRATION.461298 9052 Information not available 12/21/2022 Do You Have Any Pets? No MIGRATION.435384 3447 Information not available 12/21/2022 What Is Your Relationship Status? Single MIGRATION.507100 1954 Information not available 12/21/2022 Do You Use Your Seat Belt Or Car Seat Routinely? Yes MIGRATION.373072 1029 Information not available 12/21/2022 Do You Have Smoke And Carbon Monoxide Detectors In Your Home? Yes MIGRATION.664279 1664 Information not available 12/21/2022 Are You Passively Exposed To Smoke? No MIGRATION.633451 9304 Information not available 12/21/2022 Are There Any Smokers In Your House? No MIGRATION.575435 1695 Information not available 12/21/2022 Do You Participate In Social Media? No MIGRATION.595758 3498 Information not available 12/21/2022 Do You Feel Stressed (tense, Restless, Nervous, Or Anxious, Or Unable To Sleep At Night)? [id number] MIGRATION.659866 8858 Information not available 12/21/2022 Do You Use Any Illicit Or Recreational Drugs? Yes [place] MIGRATION.251682 8375 Information not available 12/21/2022 Do You Use Sunscreen Routinely? Yes MIGRATION.564984 9238 Information not available 12/21/2022 Has Tobacco Cessation Counseling Been Provided? No MIGRATION.304689 2988 Information not available 12/21/2022 Have You Recently Traveled Abroad? No Information not available 06/27/2024 Have You Used IV Drugs? No MIGRATION.857721 1602 Information not available 12/21/2022 Are You Currently In School? No MIGRATION.124163 8370 Information not available 12/21/2022 Do You Have Any Dietary Restrictions? No MIGRATION.723468 1139 Information not available 12/21/2022 Do You Or Have You Ever Used Any Other Forms Of Tobacco Or Nicotine? No MIGRATION.425015 1253 Information not available 12/21/2022 Sex: Unknown Functional Status Question Answer Note LastModified by Organizat ion Details LastModified Time Do you have difficulty walking or climbing stairs? No MIGRATION.7268476 026 Information not available 12/21/2022 Do you have transportation difficulties? No MIGRATION.5822123 026 Information not available 12/21/2022 Are you able to walk? YESWOREST MIGRATION.2671942 026 Information not available 12/21/2022 Do you have difficulty doing errands alone? No MIGRATION.2414193 026 Information not available 12/21/2022 Are you able to care for yourself? Yes MIGRATION.8863523 026 Information not available 12/21/2022 Do you have difficulty dressing or bathing? No MIGRATION.7719266 026 Information not available 12/21/2022 What is your exercise level? Occasional MIGRATION.1244291 026 Information not available 12/21/2022 Mental Status Question Answer Note LastModified by Organizat ion Details LastModified Time Do you have difficulty concentrating, remembering or making decisions? No MIGRATION.[id number] 6 Information not available 12/21/2022 Family History Nothing Reported Notes:says mom has heart iss ues doest know what kind Medical History Condition Response BLINDNESS N RHEUMATIC FEVER N BLADDER PROBLEMS N KIDNEY STONES N MRSA N OTHER # 1 N POLIO N LUNG DISEASE/DISORDER N HISTORY OF DRUG ABUSE N RADIATION / CHEMOTHERAPY N COPD N Other # 2 N BLOOD DISEASES N SURGERY N EAR OR HEARING PROBLEMS N MUMPS N SHINGLES N FEMALE PROBLEMS / INFECTIONS N DEPRESSION (INCLUDING POST ) N BOWEL PROBLEMS N STROKE/TIA N THYROID DISEASE N ULCERS N BENIGN PROSTATIC HYPERPLASIA N MEASLES N CERVICALGIA N TB SKIN TEST N HYPOTENSION N MYOCARDIAL INFARCTION N PARAPELGIA N OBESITY [...] GLAUCOMA N FOOT PROBLEM N DIVERTICULITIS N SLEEP APNEA N CHICKENPOX N ALLERGIES/HAYFEVER N INFECTIOUS DISEASE N PROSTATE N HEART ARRHYTHMIA N INSOMNIA N HIGH CHOLESTEROL / HYPERLIPIDEMIA N EYE PROBLEMS N HYPERTHYROIDISM N EATING DISORDER N EDEMA N CHRONIC PAIN SYNDROME N CAROTID BLOCKAGE N CONSTIPATION N BACK / NECK PROBLEMS N HAVE YOU BEEN HOSPITALIZED OR SEEN IN [facility] IN THE PAST YEAR ? N [...] DISORDER N ALZHEIMER'S DISEASE N PAIN N DEMENTIA N HERPES N SEIZURES/EPILEPSY N HEADACHES/MIGRAINES N VASCULAR DISEASE N PACEMAKER N DIZZINESS N HEART DISEASE/HEART PROBLEMS N KIDNEY DISEASE N SCARLET FEVER N MULTIPLE SCLEROSIS N DEVELOPMENTAL OR BEHAVIORAL DISORDERS N MENTAL DISORDER/ILLNESS N CANCER: SPECIFY N CARDIAC ARRHYTHMIA N PNEUMONIA N ATRIAL FIBRILLATION N Gall [...] or 50 mcg/0.25mL dose 1 completed Eliana Encranacion APRN [address], [place], [address], [employer] [facility] [employer] [facility] 06/27/2024 07:47:33 COVID-19, mRNA, LNP-S, PF, 100 mcg/0.5mL dose or 50 mcg/0.25mL dose 1 completed Eliana Encarnacion APRN [address], [address], [place], [address], [employer] [facility] [employer] [facility] 06/27/2024 07:47:33 Influenza, high-dose, trivalent, PF 8 completed Eliana Encarnacion APRN [address], [address], [place], [address], [employer] [facility] [employer] [facility] 06/27/2024 07:47:43 Influenza, high-dose, trivalent, PF 7 completed Eliana Encarnacion APRN [address], [address], [place], [address], [employer] [facility] [employer] [facility] 06/27/2024 07:47:43 Influenza, split virus, quadrivalent, preservative 9 completed Not Available [facility] 12/21/2022 01:24:33 Influenza, high-dose, quadrivalent, PF 2 completed Not Available [facility] 12/21/2022 01:24:34 Influenza, high-dose, quadrivalent, PF 1 completed Not Available [facility] 12/21/2022 01:24:34 Influenza, high-dose, quadrivalent, PF 0 completed Not Available [facility] 12/21/2022 01:24:34 Pneumococcal conjugate PCV 13 1 completed Eliana Encarnacion APRN [address], [address], [place], [address], [employer] [facility] [employer] [facility] 06/27/2024 07:47:33 Influenza, high-dose, trivalent, PF 9 completed Eliana Encarnacion APRN [address], [address], [place], [address], [email or web address] 06/27/2024 07:47:33 pneumococcal polysaccharide PPV23 7 completed Not Available [facility] 12/21/2022 01:24:34 Influenza, high-dose, trivalent, PF 4 completed Eliana Encarnacion APRN [address], [address], [place], [address], [email or web address] 08/27/2024 12:02:30 Past Encounters Encounter ID Performer Location Encounter Start Date Encounter Closed Date Diagnosis/Indication Diagnosis SNOMED-CT Code Diagnosis ICD10 Code Diagnosis Note [id number] [facility] [place] [address] [facility] [address] [place] [address] 12/30/2020 00:00:00 12/30/2020 11:57:29 [id number] [facility] [place] [address] [facility] [address] [place] [address] 04/01/2021 00:00:00 04/20/2021 16:18:35 [id number] [facility] [place] [address] [place] [address] 05/06/2021 00:00:00 05/06/2021 14:04:48 [id number] [facility] [place] [address] [facility] [address] [place] [address] 07/01/2021 00:00:00 07/01/2021 11:25:38 [id number] [facility] [place] [address] [facility] [address] [place] [address] 08/11/2021 00:00:00 08/11/2021 08:31:37 [id number] [facility] [place] [address] [facility] [address] [place] [address] 09/30/2021 00:00:00 10/20/2021 18:52:14 [id number] [facility] [place] [address] [place] [address] 05/04/2022 00:00:00 05/20/2022 12:18:19 [id number] [facility] [place] [address] [place] [address] 05/19/2022 00:00:00 05/20/2022 09:27:22 [id number] [facility] [place] [address] [place] [address] 08/04/2022 00:00:00 08/04/2022 15:24:09 [id number] [facility] [place] [address] [place] [address] 09/26/2022 00:00:00 09/26/2022 10:59:24 [id number] [facility] [place] [address] [place] [address] 11/01/2022 00:00:00 11/01/2022 11:50:32 [id number] Tanya Jane MD [facility] [place] [address] [place] [address] 12/29/2022 11:15:49 12/29/2022 12:08:15 Unintentional weight loss 755856880 R63.4 R05.9 20 pounds unintentio nal weight losshas cough but no fever, no change in appetite, no change in bowel habitslab work done 10/2022 and 11/2022 showed no significan t findings including a1c and tshcheck ct chest/abd/ pelvis for further evaluation Increased frequency of urination 518501845 R35.0 Cobalamin deficiency 190 316731 E53.8 [id number] Tanya Jane MD [facility] [place] [address] [place] [address] 03/02/2023 08:44:09 03/02/2023 09:14:43 Nodule of lung 785668357 R91.1 R63.4 f/u due in August Cobalamin deficiency 190 616931 E53.8 Hyperlipidemia 26639799 E78.5 Hypothyroidism 69710528 E03.9 Vitamin D deficiency 347 44613 E55.9 Essential hypertension 11389051 I10 [id number] Tanya Jane MD [facility] Primary Care [place] [address] [facility] [address] [place] [address] 09/04/2023 10:30:05 09/04/2023 11:11:15 Nodule of lung 476555980 R91.[address] stable on 08/31/23, repeat in 6 months Cobalamin deficiency 190 953996 E53.8 Hyperlipidemia 36042095 E78.5 Hypothyroidism 10905375 E03.9 Vitamin D deficiency 347 61587 E55.9 Essential hypertension 56069432 I10 Diabetes mellitus 462005 09 E11.9 doing well per home sugar readingswi ll hold mounjaro at 5 mg if a1c is at goal due to weight loss and bloatingch davon labs, if stable, f/u in 6 months [id number] Jose Menchaca DPM [facility] [place] [address] [place] [address] 09/25/2023 16:29:23 09/25/2023 17:34:09 Porokeratosis 048716127 Q82.8 debrided without incident sub 5th metatarsal left footrecomm end use of Amlactin lotion daily and pumice stonefollo w-up 4 months Pain in left foot 934588 9733 02806 M79.672 Secondary to aboverecom mend orthotics power stepsrecom mend supportive shoe gear Dystrophia unguium 83827 009 L60.3 Nails 1 through 10 were debrided with sharp mechanical debridemen t without incident. Nails were debrided and greater than 50% length and thickness where needed. [id number] oJse Menchaca DPM [facility] [place] [address] [place] [address] 01/22/2024 13:58:32 01/22/2024 16:22:55 Dystrophia unguium 20261150 L60.3 Nails 1 through 10 were debrided with sharp mechanical debridemen t without incident. Nails were debrided and greater than 50% length and thickness where needed. Diabetes mellitus 698662 09 E11.9 A1c 09/04/2023 - 6.4continu e diabetic control per PCP recommenda tion Neuropathy due to type 2 diabetes mellitus 9142076312 84444 E11.40 recommend supportive shoe gear Bunion 470587261 M21.61 9 bilateral to the righteduca javier on treatment options [id number] Tanya Jane MD [facility] Primary Care [facility] [address] [facility] [address] [place] [address] 03/04/2024 10:26:37 03/04/2024 11:11:43 Nodule of lung 378285347 R91.[address] scan 02/13-stabl e, repeat 1 year Cobalamin deficiency 190 098384 E53.8 Hyperlipidemia 76887799 E78.5 Hypothyroidism 32906094 E03.9 Vitamin D deficiency 347 01290 E55.9 Essential hypertension 35181706 I10 Diabetes mellitus 632989 09 E11.9 doing well per home sugar readingswi ll hold mounjaro at 5 mg if a1c is at goal due to weight loss and bloatingch davon labs, if stable, f/u in 6 months 03/04/24: had d/c mounjaro due to med s/ecannot tolerate metformin due GI s/echeck a1c [id number] Jose Menchaca DPM [facility] [place] [address] [place] [address] 04/22/2024 14:44:41 04/23/2024 10:57:43 Diabetes mellitus 54285368 E11.9 A1c 03/04/2024- 6.0continu e diabetic control per PCP recommenda tion Dystrophia unguium 40153 009 L60.3 Nails 1 through 10 were debrided with sharp mechanical debridemen t without incident. Nails were debrided and greater than 50% length and thickness where needed. [id number] Eliana Encarnacion APRN [facility] Internal Med [address] [place] [address] 06/27/2024 11:10:40 06/27/2024 11:59:44 Screening mammography 06486178 Z12.31 Screening for osteoporosis 189125081 Z13.820 Essential hypertension 35421369 I10 Cobalamin deficiency 190 418015 E53.8 Vitamin D deficiency 347 00511 E55.9 Hyperlipidemia 95385716 E78.5 Renewal of prescription 555840586 Z76.0 Hypothyroidism 68776698 E03.9 Type 2 sean betes mellitus without complication 701231263 E11.9 Gastroesop hageal reflux disease without esophagitis 693726164 K21.9 Diabetes mellitus 033046 09 E11.9 Osteoporosis 84616676 M8 1.0 [id number] Jose Menchaca DPM [facility] [place] [address] [facility] [address] [place] [address] 07/22/2024 14:22:39 07/25/2024 16:18:57 Diabetes mellitus 33916198 E11.9 A1c 03/04/2024- 6.0continu e diabetic control per PCP recommenda tion Dystrophia unguium 58643 009 L60.3 Nails 1 through 10 were debrided with sharp mechanical debridemen t without incident. Nails were debrided and greater than 50% length and thickness where needed. Partial th ickness burn of foot 49568385 T25.221A plantar right footdaily dressingsm onitor for infectionf ollow up in 1 week if not healed [id number] Eliana Encarnacion APRN [facility] Internal Med [facility] [[email or web address] [address] [place] , [facility] [[email or web address] [address] [place] [address] 08/27/2024 11:02:43 08/27/2024 12:08:13 Adult health examination 290452339 Z00.00 Screening for disorder 921322804 Z13.9 Hepatitis C screening 41 5852477 Z11.59 Administra tion of influenza vaccine 78954706 Z23 Diabetes mellitus 298526 09 E11.9 Renal insufficiency 7231 22737 N28.9 Cobalamin deficiency 190 017681 E53.8 Health Concerns Section Related Observation LastModified by Organization Detai ls LastModified Time None Recorded Concern Status LastModified by Organization Details LastModified Time None Recorded Advance Directives Directive None Recorded Payers Encounter Date Sequence Insurance Name Policy Number Policy Guardado Covered Member ID Guardado Member ID Guarantor Name 03/04/2024 1 [facility] (MEDICARE REPLACEMENT/A DVANTAGE - PPO) [id number] Kianna Hill [id number] Kianna Hill 04/22/2024 1 [facility] (MEDICARE REPLACEMENT/A DVANTAGE - PPO) [id number] Kianna Hill [id number] Kianna Hill 06/27/2024 1 [facility] (MEDICARE REPLACEMENT/A DVANTAGE - PPO) [id number] Kianna Hill [id number] Kianna Hill 07/22/2024 1 [facility] (MEDICARE REPLACEMENT/A DVANTAGE - PPO) [id number] Kianna Hill [id number] Kianna Hill 08/27/2024 1 [facility] (MEDICARE REPLACEMENT/A DVANTAGE - PPO) [id number] Kianna Hill [id number] Kianna Hill Notes Date Note Type Note Provider Name and Address Organization Details Recorded Time 03/04/2024 text/html she d/c her mounjaro due to vomiting and hypoglycemia about 2 weeks ago. She is c/o fatigue, no chest pain no sob. Tanya Jane MD [address], [address] [employer], [place], [address], [email or web address] 03/04/2024 10:57:29 04/22/2024 text/html Patient is a 73-year-old female diabetic who returns the office for diabetic foot care. Patient states overall her diabetes has been doing well she denies any numbness tingling or burning in the feet. Patient denies any open wounds or infection. Patient denies any other complaints. Jose Menchaca DPM [address], [address], [place], [address], [email or web address] 04/22/2024 15:08:00 06/27/2024 text/html Kianna presents today for routine check up and medication refills. Her previous provider has left the area so she would like to establish care with this provider. Eliana Encarnacion APRN [address], [address], [place], [address], [email or web address] 06/27/2024 15:49:52 07/22/2024 text/html . Patient is a 73-year-old female she is diabetic she returns for diabetic foot care she states that she sustained a burn to the plantar part of her right foot. Patient states the injury occurred from her dropping her joint on the ground and she stomped on it with her right foot that was bear she states she created a little burn injury she has been caring for it and it is basically healed. Patient denies any fever, chills, nausea or vomiting. Patient states her nails are also long like to have them cut. Patient denies any other complaints. Jose Menchaca DPM [address], [address], [place], [address], [email or web address] 07/22/2024 15:39:14 08/27/2024 text/html Kianna presents today for her Medicare Annual Wellness visit. 06/27/2024Kianna presents today for routine check up and medication refills. Her previous provider has left the area so she would like to establish care with this provider. Eliana Encarnacion APRN [address], [address], [place], [address], [email or web address] 08/27/2024 12:05:46 OBGyn Episode No OBEpisode recorded.
[2024-11-09] MEDS: LEVOTHYROXINE SODIUM 75 MCG TABLET PO (09:01)
[2024-11-09] MEDS: PANTOPRAZOLE 40 MG TABLET PO ×2 (09:01→20:55)
[2024-11-09] MEDS: SIMVASTATIN 20 MG TABLET PO (09:01)
[2024-11-09] MEDS: LEFLUNOMIDE 20 MG TABLET PO (09:01)
[2024-11-09] MEDS: AMOXICILLIN/CLAVULANATE K 875-125 MG TAB 1 TABLET PO ×2 (09:01→20:55)
[2024-11-09] MEDS: NIFEdipine 30 MG TAB.ER.24 60 MG PO (09:01)
[2024-11-09] MEDS: LOSARTAN POTASSIUM 100 MG TABLET PO (09:02)
[2024-11-09] MEDS: POTASSIUM CHLORIDE 20 MEQ ER TABLET PO ×2 (09:02→18:07)
[2024-11-09] MEDS: hydrALAZINE 10 MG TABLET PO ×4 (09:02→20:55)
[2024-11-09] MEDS: ISOSORBIDE MONONITRATE 30 MG TAB.ER.24H PO (09:02)
[2024-11-09] MEDS: POLYSACCHARIDE IRON COMPLEX 150 MG CAPSULE PO ×2 (09:03→18:07)
--- NOTE | 2024-11-09 10:38 | P.PNNP_ITS ---
Progress Note: A&P Assessment and Plan (1) Hyponatremia: Code(s): E87.1 - Hypo-osmolality and hyponatremia Status: Acute Assessment and Plan: * slow improvement noted (if not back to baseline) * acute on chronic * from review of outside records, baseline sodium runs around 129 - 136mmol/L since 2019 * last blood work in August 2024 -- sdoium was 129mmol/L * appears relatively asymptomatic * risk factors for low sodium: * prerenal factors (poor oral intake) * HCTZ use * chronic pain * PPI use * known thyroid disease * evaluation to date noted: * TSH and cortisol okay * no evidence of [employer] or lung disease * SPEP/UPEP and serum/urine osmo pending * urine electrolytes prerenal * Sodium level is 131 today. * She is on fluid restriction (2) Hypertension: Code(s): I10 - Essential (primary) hypertension Status: Chronic Assessment and Plan: * Blood pressure still somewhat high. * Today she startes nifedipine * follow trend of hemodynamics (3) Diabetes: Code(s): E11.9 - Type 2 diabetes mellitus without complications Status: Acute Assessment and Plan: * follow accu-cheks * glycemic control per hospitalist Will continue to follow. Subjective Date/time seen: 11/09/24 10:38 Interval history: patient is alert. She feels okay. No chest pain or shortness of breath Exam Narrative: General: elderly but WD/WN female in NAD Heart: normal S1 and S2; no rub Lungs: clear bilaterally Abdomen: soft, nontender, nondistended, positive bowel sounds Extremities: no edema Skin: no nodules or rash Objective Data Vital Signs Vital Signs: Vital Signs - 24 hr 11/08/24 14:00 11/08/24 20:00 11/08/24 21:35 Temperature 98.1 F 97.3 F L Pulse Rate 84 81 81 Respiratory Rate 16 14 14 Blood Pressure 129/68 163/78 H Pulse Oximetry 100 100 100 Oxygen Delivery Room Air 11/09/24 05:33 Temperature 98.1 F Pulse Rate 69 Respiratory Rate 14 Blood Pressure 173/80 H Pulse Oximetry 100 Oxygen Delivery Intake/Output Intake/Output: Intake & Output 11/06/24 11/07/24 11/08/24 11/09/24 23:59 23:59 23:59 23:59 Intake Total 1560 720 920 470 Balance 1560 720 920 470 Meds/Results Medications: Active Medications Generic Name Dose Route Start Last Admin Trade Name Freq PRN Reason Stop Dose Admin Acetaminophen 650 mg 11/02/24 14:02 Acetaminophen 325 Mg Tablet PO Q4H PRN Mild Pain (1-3) or Fever Hydrocodone Bitart/Acetaminophen 1 tab 11/02/24 14:29 11/06/24 21:47 Hydrocodone/Acetaminophen (*Crx) 5-325 Mg Tablet PO 1 tab Q4H PRN Administration Pain Rated 4-6 Amoxicillin/Clavulanate Potassium 1 tablet 11/07/24 09:00 11/09/24 09:01 Amoxicillin/Clavulanate K 875-125 Mg Tab PO 11/09/24 21:01 1 tablet Q12HR ROXANNE Administration Dextrose 12.5 gm 11/03/24 00:32 Dextrose 50% 25 Gm/50 Ml Syringe IV PUSH PRN PRN Hypoglycemia Protocol Fenofibrate 160 mg 11/03/24 21:00 11/08/24 21:09 Fenofibrate 160 Mg Tablet PO 160 mg QHS ROXANNE Administration Glucagon 1 mg 11/03/24 00:32 Glucagon For Inj 1 Mg Vial IM PRN PRN Hypoglycemia Protocol Glucose 15 gm 11/03/24 00:32 Glucose Oral Gel 15 Gm Of Glucse In 37.5 Gm Tube PO PRN PRN Hypoglycemia Protocol Hydralazine HCl 10 mg 11/08/24 09:00 11/09/24 09:02 Hydralazine 10 Mg Tablet PO 10 mg QID ROXANNE Administration Hydroxychloroquine Sulfate 300 mg 11/03/24 09:00 11/08/24 18:49 Hydroxychloroquine Sulfate 200 Mg Tablet PO 300 mg BIDWM [facility] Administration Dextrose 1,000 mls @ 100 mls/hr 11/03/24 00:32 Dextrose 5% 1,000 Ml IVPB PRN PRN Hypoglycemia Protocol Insulin Aspart 2 - 5 units 11/03/24 08:00 11/09/24 08:01 Insulin Aspart (*Bkc) 100 Units/Ml SUB-Q Not Given TIDWM [facility] Protocol Insulin Aspart 1 - 2 units 11/03/24 21:00 11/08/24 21:11 Insulin Aspart (*Bkc) 100 Units/Ml SUB-Q Not Given HS [facility] Protocol Insulin Glargine 11 units 11/03/24 21:00 11/08/24 21:11 Insulin Glargine (*Bkc) 100 Units/Ml 0.15 units/kg (11 units) 11 units SUB-Q Administration HS [facility] Isosorbide Mononitrate 30 mg 11/03/24 09:00 11/09/24 09:02 Isosorbide Mononitrate 30 Mg Tab.Er.24h PO 30 mg DAILY ROXANNE Administration Leflunomide 20 mg 11/03/24 09:00 11/09/24 09:01 Leflunomide 20 Mg Tablet PO 20 mg DAILY ROXANNE Administration Levothyroxine Sodium 75 mcg 11/03/24 06:30 11/09/24 09:01 Levothyroxine Sodium 75 Mcg Tablet PO 75 mcg DAILY@0630 R[facility]NE Administration Losartan Potassium 100 mg 11/03/24 09:00 11/09/24 09:02 Losartan Potassium 100 Mg Tablet PO 100 mg DAILY [facility] Administration Morphine Sulfate 2 mg 11/02/24 14:29 11/05/24 01:10 Morphine Sulfate (*Crx) 2 Mg/Ml Inj IV PUSH 2 mg Q2H PRN Administration Pain Rated 7-10 Nifedipine 60 mg 11/09/24 09:00 11/09/24 09:01 Nifedipine 30 Mg Tab.Er.24 PO 60 mg QAM [facility] Administration Ondansetron HCl 4 mg 11/04/24 06:03 Ondansetron Inj 4 Mg/2 Ml Vial IV PUSH Q6H PRN Nausea And Vomiting Pantoprazole Sodium 40 mg 11/03/24 09:00 11/09/24 09:01 Pantoprazole 40 Mg Tablet PO 40 mg Q12HR ROXANNE Administration Polyethylene Glycol 17 gm 11/06/24 12:10 11/09/24 08:59 Polyethylene Glycol 3350 17 Gm Powd.Pack PO Not Given QAM [facility] Polysaccharide Iron Complex 150 mg 11/03/24 17:00 11/09/24 09:03 Polysaccharide Iron Complex 150 Mg Capsule PO 150 mg BIDWM [facility] Administration Potassium Chloride 20 meq 11/03/24 09:00 11/09/24 09:02 Potassium Chloride 20 Meq Er Tablet PO 20 meq BID [facility]OX[facility]NE Administration Simvastatin 20 mg 11/03/24 09:00 11/09/24 09:01 Simvastatin 20 Mg Tablet PO 20 mg DAILY ROXANNE Administration Radiology Results: ITS Impressions Chest X-Ray 11/02/24 11:23 IMPRESSION: Bilateral hyperinflation suggesting COPD No active cardiopulmonary disease Aortic calcification and tortuosity Osteopenia Bilateral glenohumeral osteoarthritis Labs Labs: Laboratory Results - last 24 hr 11/08/24 11/08/24 11/08/24 11:17 11:41 16:58 WBC RBC Hgb Hct MCV MCH MCHC RDW Plt Count MPV Sodium Potassium Chloride Carbon Dioxide Anion Gap BUN Creatinine Estim Creat Clear Calc Estimated GFR Glucose POC Capillary Glucose 205 H 225 H Calcium Total Bilirubin AST ALT Alkaline Phosphatase Total Protein Albumin Stl Occult Blood (IFOB) Positive H D 11/08/24 11/08/24 11/09/24 17:32 20:23 06:30 WBC 8.9 RBC 4.22 Hgb 8.6 L 8.3 L Hct 28.1 L 28.7 L MCV 68.0 L MCH 19.7 L MCHC 28.9 L RDW 21.8 H Plt Count 302 MPV 9.6 Sodium 131 L Potassium 4.0 Chloride 102 Carbon Dioxide 19 L Anion Gap 10 BUN 10 Creatinine 0.70 Estim Creat Clear Calc 61 Estimated GFR > 60 Glucose 153 H POC Capillary Glucose 177 H Calcium 8.4 Total Bilirubin 0.6 AST 18 ALT 24 Alkaline Phosphatase 144 H Total Protein 6.0 L Albumin 3.5 Stl Occult Blood (IFOB) 11/09/24 07:48 WBC RBC Hgb Hct MCV MCH MCHC RDW Plt Count MPV Sodium Potassium Chloride Carbon Dioxide Anion Gap BUN Creatinine Estim Creat Clear Calc Estimated GFR Glucose POC Capillary Glucose 163 H Calcium Total Bilirubin AST ALT Alkaline Phosphatase Total Protein Albumin Stl Occult Blood (IFOB)
[2024-11-09 12:27] LABS: Glucose Point of Care 245 mg/dl (65-105)
--- NOTE | 2024-11-09 12:34 | WPDGIPROGNO ---
Progress Note: A&P Assessment and Plan (1) Painless rectal bleeding: Code(s): K62.5 - Hemorrhage of anus and rectum Status: Acute Assessment and Plan: Rectal bleeding differential diagnosis discussed in yesterday's evaluation. Colonoscopy scheduled for Monday, orders placed. Subjective Date/time seen: 11/09/24 12:34 Interval history: Patient did not experience further rectal bleeding episodes. Objective Data Vital Signs Vital Signs: Vital Signs - 24 hr 11/08/24 14:00 11/08/24 20:00 11/08/24 21:35 Temperature 98.1 F 97.3 F L Pulse Rate 84 81 81 Respiratory Rate 16 14 14 Blood Pressure 129/68 163/78 H Pulse Oximetry 100 100 100 Oxygen Delivery Room Air 11/09/24 05:33 Temperature 98.1 F Pulse Rate 69 Respiratory Rate 14 Blood Pressure 173/80 H Pulse Oximetry 100 Oxygen Delivery Intake/Output Intake/Output: Intake & Output 11/06/24 11/07/24 11/08/24 11/09/24 23:59 23:59 23:59 23:59 Intake Total 1560 720 920 470 Balance 1560 720 920 470 Meds/Results Medications: Active Medications Generic Name Dose Route Start Last Admin Trade Name Freq PRN Reason Stop Dose Admin Acetaminophen 650 mg 11/02/24 14:02 Acetaminophen 325 Mg Tablet PO Q4H PRN Mild Pain (1-3) or Fever Hydrocodone Bitart/Acetaminophen 1 tab 11/02/24 14:29 11/06/24 21:47 Hydrocodone/Acetaminophen (*Crx) 5-325 Mg Tablet PO 1 tab Q4H PRN Administration Pain Rated 4-6 Amoxicillin/Clavulanate Potassium 1 tablet 11/07/24 09:00 11/09/24 09:01 Amoxicillin/Clavulanate K 875-125 Mg Tab PO 11/09/24 21:01 1 tablet Q12HR ROXANNE Administration Dextrose 12.5 gm 11/03/24 00:32 Dextrose 50% 25 Gm/50 Ml Syringe IV PUSH PRN PRN Hypoglycemia Protocol Fenofibrate 160 mg 11/03/24 21:00 11/08/24 21:09 Fenofibrate 160 Mg Tablet PO 160 mg QHS ROXANNE Administration Glucagon 1 mg 11/03/24 00:32 Glucagon For Inj 1 Mg Vial IM PRN PRN Hypoglycemia Protocol Glucose 15 gm 11/03/24 00:32 Glucose Oral Gel 15 Gm Of Glucse In 37.5 Gm Tube PO PRN PRN Hypoglycemia Protocol Hydralazine HCl 10 mg 11/08/24 09:00 11/09/24 09:02 Hydralazine 10 Mg Tablet PO 10 mg QID ROXANNE Administration Hydroxychloroquine Sulfate 300 mg 11/03/24 09:00 11/08/24 18:49 Hydroxychloroquine Sulfate 200 Mg Tablet PO 300 mg BIDWM [facility] Administration Dextrose 1,000 mls @ 100 mls/hr 11/03/24 00:32 Dextrose 5% 1,000 Ml IVPB PRN PRN Hypoglycemia Protocol Insulin Aspart 2 - 5 units 11/03/24 08:00 11/09/24 08:01 Insulin Aspart (*Bkc) 100 Units/Ml SUB-Q Not Given TIDWM [facility] Protocol Insulin Aspart 1 - 2 units 11/03/24 21:00 11/08/24 21:11 Insulin Aspart (*Bkc) 100 Units/Ml SUB-Q Not Given HS [facility] Protocol Insulin Glargine 11 units 11/03/24 21:00 11/08/24 21:11 Insulin Glargine (*Bkc) 100 Units/Ml 0.15 units/kg (11 units) 11 units SUB-Q Administration HS [facility] Isosorbide Mononitrate 30 mg 11/03/24 09:00 11/09/24 09:02 Isosorbide Mononitrate 30 Mg Tab.Er.24h PO 30 mg DAILY ROXANNE Administration Leflunomide 20 mg 11/03/24 09:00 11/09/24 09:01 Leflunomide 20 Mg Tablet PO 20 mg DAILY ROXANNE Administration Levothyroxine Sodium 75 mcg 11/03/24 06:30 11/09/24 09:01 Levothyroxine Sodium 75 Mcg Tablet PO 75 mcg DAILY@0630 ROXANNE Administration Losartan Potassium 100 mg 11/03/24 09:00 11/09/24 09:02 Losartan Potassium 100 Mg Tablet PO 100 mg DAILY ROXANNE Administration Morphine Sulfate 2 mg 11/02/24 14:29 11/05/24 01:10 Morphine Sulfate (*Crx) 2 Mg/Ml Inj IV PUSH 2 mg Q2H PRN Administration Pain Rated 7-10 Nifedipine 60 mg 11/09/24 09:00 11/09/24 09:01 Nifedipine 30 Mg Tab.Er.24 PO 60 mg QAM R[facility] Administration Ondansetron HCl 4 mg 11/04/24 06:03 Ondansetron Inj 4 Mg/2 Ml Vial IV PUSH Q6H PRN Nausea And Vomiting Pantoprazole Sodium 40 mg 11/03/24 09:00 11/09/24 09:01 Pantoprazole 40 Mg Tablet PO 40 mg Q12HR ROXANNE Administration Polyethylene Glycol 17 gm 11/06/24 12:10 11/09/24 08:59 Polyethylene Glycol 3350 17 Gm Powd.Pack PO Not Given QAM [facility] Polyethylene Glycol 119 gm 11/10/24 20:00 Polyethylene Glycol 3350 238 Gm Bottle PO 11/11/24 05:01 BID@0500,2000 [facility] Polysaccharide Iron Complex 150 mg 11/03/24 17:00 11/09/24 09:03 Polysaccharide Iron Complex 150 Mg Capsule PO 150 mg BIDWM [facility] Administration Potassium Chloride 20 meq 11/03/24 09:00 11/09/24 09:02 Potassium Chloride 20 Meq Er Tablet PO 20 meq BID ROXANNE Administration Simvastatin 20 mg 11/03/24 09:00 11/09/24 09:01 Simvastatin 20 Mg Tablet PO 20 mg DAILY ROXANNE Administration Radiology Results: ITS Impressions Chest X-Ray 11/02/24 11:23 IMPRESSION: Bilateral hyperinflation suggesting COPD No active cardiopulmonary disease Aortic calcification and tortuosity Osteopenia Bilateral glenohumeral osteoarthritis Labs Labs: Laboratory Results - last 24 hr 11/08/24 11/08/24 11/08/24 16:58 17:32 20:23 WBC RBC Hgb 8.6 L Hct 28.1 L MCV MCH MCHC RDW Plt Count MPV Sodium Potassium Chloride Carbon Dioxide Anion Gap BUN Creatinine Estim Creat Clear Calc Estimated GFR Glucose POC Capillary Glucose 225 H 177 H Calcium Total Bilirubin AST ALT Alkaline Phosphatase Total Protein Albumin 11/09/24 11/09/24 11/09/24 06:30 07:48 12:04 WBC 8.9 RBC 4.22 Hgb 8.3 L Hct 28.7 L MCV 68.0 L MCH 19.7 L MCHC 28.9 L RDW 21.8 H Plt Count 302 MPV 9.6 Sodium 131 L Potassium 4.0 Chloride 102 Carbon Dioxide 19 L Anion Gap 10 BUN 10 Creatinine 0.70 Estim Creat Clear Calc 61 Estimated GFR > 60 Glucose 153 H POC Capillary Glucose 163 H 245 H Calcium 8.4 Total Bilirubin 0.6 AST 18 ALT 24 Alkaline Phosphatase 144 H Total Protein 6.0 L Albumin 3.5
--- NOTE | 2024-11-09 12:46 | P.PNIM_ITS ---
Progress Note: A&P Assessment and Plan (1) Acute hyponatremia: Code(s): E87.1 - Hypo-osmolality and hyponatremia Status: Acute Assessment and Plan: Resolved Admission sodium level of 116. Nephrology consulted Presumed etiology hydrochlorothiazide Free water restriction (2) Body aches: Code(s): R52 - Pain, unspecified Status: Acute Assessment and Plan: Cont. current, intermittently controlled. (3) Leukocytosis: Code(s): D72.829 - Elevated white blood cell count, unspecified Status: Acute Assessment and Plan: Resolved 33 KA on admission. Urinalysis with 6-10 WBC in urine Urine culture mixed genital yaw Started on ceftriaxone on admission is 11/03/2024 (4) Hypertension: Code(s): I10 - Essential (primary) hypertension Status: Chronic Assessment and Plan: - Continue home med (5) Diabetes: Code(s): E11.9 - Type 2 diabetes mellitus without complications Status: Acute Assessment and Plan: - Cont. Accu-Cheks a.c. HS with corrective insulin. - Diabetic diet. - Holding glipizide, metformin. (6) Arthritis: Code(s): M19.90 - Unspecified osteoarthritis, unspecified site Status: Acute Assessment and Plan: - Encouraged to request prns when having pain. Stable. Continue hydrochloroquine and Arava (7) Hypothyroidism: Code(s): E03.9 - Hypothyroidism, unspecified Status: Acute Assessment and Plan: TSH 1.7, Continue Synthroid (8) Microcytic anemia: Code(s): D50.9 - Iron deficiency anemia, unspecified Status: Acute Assessment and Plan: - Anemic on presentation with hgb 8.2, steadily downtrending, to 6.7. Needing transfusion - check ferritin, tibc/iron/sat and fobt. - GI Following - Colonoscopy on 11/11 - Hold lovenox. H&H remained stable Plan DVT prophylaxis SCDs Code status full code Subjective Date/time seen: 11/09/24 12:46 Interval history: Possible colonoscopy Monday. Continues to feel better. No acute events overnight Review of Systems Review of Systems: 12 systems were reviewed and are negativ e except for as per HPI. All systems reviewed & are unremarkable except as noted in HPI and below Exam Narrative: GENERAL APPEARANCE: Appears to be in no acute distress. HEAD: normocephalic atraumatic EYES: PERRL, EOMI. Vision grossly intact. ENT: Hearing grossly intact, no nasal discharge NECK: Neck supple, trachea midline. CARDIAC: Normal S1/S2. Rhythm is regular. No murmurs, rubs, or gallops. No cyanosis or pallor. Extremities are warm and well perfused. LUNGS: Clear to auscultation without rales, rhonchi, wheezing or diminished breath sounds. Respirations even and unlabored. ABDOMEN: BS positive x 4 quadrants. Soft, nondistended, nontender. No guarding or rebound. MSK: No joint tenderness/swelling, fair strength in all extremities. PERIPHERAL VASCULAR: Peripheral pulses palpable. Normal perfusion, cap refill <2 seconds. No edema. NEURO: Follows commands. No focal deficits. SKIN: [place] without lesions or eruptions. PSYCH: Stable, no paranoia or delusional thinking. Objective Data Vital Signs Vital Signs: Vital Signs - 24 hr 11/08/24 14:00 11/08/24 20:00 11/08/24 21:35 Temperature 98.1 F 97.3 F L Pulse Rate 84 81 81 Respiratory Rate 16 14 14 Blood Pressure 129/68 163/78 H Pulse Oximetry 100 100 100 Oxygen Delivery Room Air 11/09/24 05:33 Temperature 98.1 F Pulse Rate 69 Respiratory Rate 14 Blood Pressure 173/80 H Pulse Oximetry 100 Oxygen Delivery Intake/Output Intake/Output: Intake & Output 11/06/24 11/07/24 11/08/24 11/09/24 23:59 23:59 23:59 23:59 Intake Total 1560 720 920 470 Balance 1560 720 920 470 Meds/Results Medications: Active Medications Generic Name Dose Route Start Last Admin Trade Name Freq PRN Reason Stop Dose Admin Acetaminophen 650 mg 11/02/24 14:02 Acetaminophen 325 Mg Tablet PO Q4H PRN Mild Pain (1-3) or Fever Hydrocodone Bitart/Acetaminophen 1 tab 11/02/24 14:29 11/06/24 21:47 Hydrocodone/Acetaminophen (*Crx) 5-325 Mg Tablet PO 1 tab Q4H PRN Administration Pain Rated 4-6 Amoxicillin/Clavulanate Potassium 1 tablet 11/07/24 09:00 11/09/24 09:01 Amoxicillin/Clavulanate K 875-125 Mg Tab PO 11/09/24 21:01 1 tablet Q12HR ROXANNE Administration Dextrose 12.5 gm 11/03/24 00:32 Dextrose 50% 25 Gm/50 Ml Syringe IV PUSH PRN PRN Hypoglycemia Protocol Fenofibrate 160 mg 11/03/24 21:00 11/08/24 21:09 Fenofibrate 160 Mg Tablet PO 160 mg QHS ROXANNE Administration Glucagon 1 mg 11/03/24 00:32 Glucagon For Inj 1 Mg Vial IM PRN PRN Hypoglycemia Protocol Glucose 15 gm 11/03/24 00:32 Glucose Oral Gel 15 Gm Of Glucse In 37.5 Gm Tube PO PRN PRN Hypoglycemia Protocol Hydralazine HCl 10 mg 11/08/24 09:00 11/09/24 09:02 Hydralazine 10 Mg Tablet PO 10 mg QID ROXANNE Administration Hydroxychloroquine Sulfate 300 mg 11/03/24 09:00 11/08/24 18:49 Hydroxychloroquine Sulfate 200 Mg Tablet PO 300 mg BIDWM [facility] Administration Dextrose 1,000 mls @ 100 mls/hr 11/03/24 00:32 Dextrose 5% 1,000 Ml IVPB PRN PRN Hypoglycemia Protocol Insulin Aspart 2 - 5 units 11/03/24 08:00 11/09/24 08:01 Insulin Aspart (*Bkc) 100 Units/Ml SUB-Q Not Given TIDWM [facility] Protocol Insulin Aspart 1 - 2 units 11/03/24 21:00 11/08/24 21:11 Insulin Aspart (*Bkc) 100 Units/Ml SUB-Q Not Given HS [facility] Protocol Insulin Glargine 11 units 11/03/24 21:00 11/08/24 21:11 Insulin Glargine (*Bkc) 100 Units/Ml 0.15 units/kg (11 units) 11 units SUB-Q Administration HS [facility] Isosorbide Mononitrate 30 mg 11/03/24 09:00 11/09/24 09:02 Isosorbide Mononitrate 30 Mg Tab.Er.24h PO 30 mg DAILY ROXANNE Administration Leflunomide 20 mg 11/03/24 09:00 11/09/24 09:01 Leflunomide 20 Mg Tablet PO 20 mg DAILY ROXANNE Administration Levothyroxine Sodium 75 mcg 11/03/24 06:30 11/09/24 09:01 Levothyroxine Sodium 75 Mcg Tablet PO 75 mcg DAILY@0630 ROXANNE Administration Losartan Potassium 100 mg 11/03/24 09:00 11/09/24 09:02 Losartan Potassium 100 Mg Tablet PO 100 mg DAILY ROXANNE Administration Morphine Sulfate 2 mg 11/02/24 14:29 11/05/24 01:10 Morphine Sulfate (*Crx) 2 Mg/Ml Inj IV PUSH 2 mg Q2H PRN Administration Pain Rated 7-10 Nifedipine 60 mg 11/09/24 09:00 11/09/24 09:01 Nifedipine 30 Mg Tab.Er.24 PO 60 mg QAM ROXANNE Administration Ondansetron HCl 4 mg 11/04/24 06:03 Ondansetron Inj 4 Mg/2 Ml Vial IV PUSH Q6H PRN Nausea And Vomiting Pantoprazole Sodium 40 mg 11/03/24 09:00 11/09/24 09:01 Pantoprazole 40 Mg Tablet PO 40 mg Q12HR ROXANNE Administration Polyethylene Glycol 17 gm 11/06/24 12:10 11/09/24 08:59 Polyethylene Glycol 3350 17 Gm Powd.Pack PO Not Given QAM [facility] Polyethylene Glycol 119 gm 11/10/24 20:00 Polyethylene Glycol 3350 238 Gm Bottle PO 11/11/24 05:01 BID@0500,2000 [facility] Polysaccharide Iron Complex 150 mg 11/03/24 17:00 11/09/24 09:03 Polysaccharide Iron Complex 150 Mg Capsule PO 150 mg BIDWM [facility] Administration Potassium Chloride 20 meq 11/03/24 09:00 11/09/24 09:02 Potassium Chloride 20 Meq Er Tablet PO 20 meq BID ROXANNE Administration Simvastatin 20 mg 11/03/24 09:00 11/09/24 09:01 Simvastatin 20 Mg Tablet PO 20 mg DAILY ROXANNE Administration Radiology Results: ITS Impressions Chest X-Ray 11/02/24 11:23 IMPRESSION: Bilateral hyperinflation suggesting COPD No active cardiopulmonary disease Aortic calcification and tortuosity Osteopenia Bilateral glenohumeral osteoarthritis Labs Labs: Laboratory Results - last 24 hr 11/08/24 11/08/24 11/08/24 16:58 17:32 20:23 WBC RBC Hgb 8.6 L Hct 28.1 L MCV MCH MCHC RDW Plt Count MPV Sodium Potassium Chloride Carbon Dioxide Anion Gap BUN Creatinine Estim Creat Clear Calc Estimated GFR Glucose POC Capillary Glucose 225 H 177 H Calcium Total Bilirubin AST ALT Alkaline Phosphatase Total Protein Albumin 11/09/24 11/09/24 11/09/24 06:30 07:48 12:04 WBC 8.9 RBC 4.22 Hgb 8.3 L Hct 28.7 L MCV 68.0 L MCH 19.7 L MCHC 28.9 L RDW 21.8 H Plt Count 302 MPV 9.6 Sodium 131 L Potassium 4.0 Chloride 102 Carbon Dioxide 19 L Anion Gap 10 BUN 10 Creatinine 0.70 Estim Creat Clear Calc 61 Estimated GFR > 60 Glucose 153 H POC Capillary Glucose 163 H 245 H Calcium 8.4 Total Bilirubin 0.6 AST 18 ALT 24 Alkaline Phosphatase 144 H Total Protein 6.0 L Albumin 3.5 Quality VTE Prophylaxis VTE prophylaxis: mechanical ordered Hospitalist [facility] Advance Care Plan I have confirmed that the patient's Advanced Care Plan is present, code status is documented, or surrogate decision maker is listed in patient medical record.: Yes Medication Reconciliation I have utilized all available resources to obtain, update and review the patients current medications (includes all prescriptions, OTC, herbals, cannabis, and nutritional supplements).: Yes
[2024-11-09] MEDS: INSULIN ASPART (*BKC) 100 UNITS/ML SUB-Q ×3 (13:03→20:56)
[2024-11-09 14:00] VITALS: BP 116/60; PULSE 93; RESP 24; TEMP 36.8; O2SAT 100
[2024-11-09 17:12] LABS: Glucose Point of Care 218 mg/dl (65-105)
[2024-11-09] MEDS: HYDROXYCHLOROQUINE SULFATE 200 MG TABLET 300 MG PO (18:08)
[2024-11-09 20:53] LABS: Glucose Point of Care 255 mg/dl (65-105)
[2024-11-09] MEDS: FENOFIBRATE 160 MG TABLET PO (20:55)
[2024-11-09] MEDS: INSULIN GLARGINE (*BKC) 100 UNITS/ML 11 UNITS SUB-Q (20:56)
[2024-11-09 22:00] VITALS: BP 139/71; PULSE 93; RESP 16; TEMP 36.6; O2SAT 99
--- OUTSIDE RECORDS SUMMARY | 2024-11-09 23:13 | XMS_ITS | Encounter Summary ---
Author Organization [facility] Address [address] [place] [address] Care Team Providers Care Turkey Boner Name Role Phone Eliana Mcneal Primary Care Provider [phone] Reason for Visit * Reason Comments Refill Request Encounter Details Date Type Department Care Team (Late st Contact Info) Description 10/07/2024 Refill [facility] - Rheumatology [address] [facility] [place] [phone] Lonnie Tai MD [address] [facility] [place] [address] Refill Request Social History Tobacco Use Types Packs/Day Years Used Date Smoking Tobacco: Former Smokeless Tobacco: Never Alcohol Use Standard Drinks/Week Comments Not Currently 1 (1 standard drink = 0.6 oz pur e alcohol) occaisionally PHQ-2 Answer Date Recorded Patient Health Questionnaire-2 Score 0 11/14/2023 Sex and Gender Information Value Date Recorded Sex Assigned at Not on file Gender Identity Not on file Sexual Orientation Not on file documented as of this encounter Miscellaneous Notes * Telephone Encounter - Dk Aceves - 10/08/2024 10:54 AM CST Refill Request Kianna Hill TREVON: 08/27/2024 NOV scheduled: 02/25/2025 LRF: 08/02/2023 Qty Disp: 270 # of refills: 3 Allergies: Allergies Allergen Reactions Codeine Nausea and/or Vomiting Pended Medication Order: Requested Prescriptions Pending Prescriptions Disp Refills hydroxychloroquine (Plaquenil) 200 MG tablet [Pharmacy Med Name: HYDROXYCHLOROQUINE 200MG TABLETS] 270 tablet 3 Sig: 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 Plan of Treatment Upcoming Encounters Date Type Department Care Team (Late st Contact Info) Description 01/09/2025 2:00 PM CDT Office Visit [facility] [facility] [place] [phone] Thalia Dunlap MD [address] [facility] [address] [place] [phone] 01/09/2025 2:30 PM CDT Office Visit [facility] - GI [address] [place] [address], [place] [phone] Matias Lewis III, MD [address] [facility] [address] [place] [address] 02/25/2025 2:30 PM CDT Office Visit [facility] - Rheumatology [address] [place] [address], [place] [address] Lonnie Tai MD [address] [facility] [place], [place] [id number] documented as of this encounter Visit Diagnoses Diagnosis 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 arthritis (HCC) Rheumatoid arthritis Therapeutic drug monitoring Encounter for therapeutic drug monitoring High risk medication use Encounter for long-term (current) use of other medications documented in this encounter Care Teams Turkey Boner Relationship Specialty Start Date End Date Eliana Mcneal [address] [place] [address] PCP - General 07/10/24 documented as of this encounter
--- OUTSIDE RECORDS SUMMARY | 2024-11-09 23:13 | XMS_ITS | Clinical Summary ---
Author Organization [facility] Address [address] [facility] [place] [address] Care Team Providers Care Skidder Lever Operator Name Role Phone Eliana Mcneal Primary Care Provider [phone] Source Comments [facility],non-owned Affiliates and Associated Physician Practices is amultiple site organization consisting of ambulatory clinics and hospital sitesin [place], [place], [place] and [place]. This disclosure is being madepursuant to the Care Everywhere program and may not contain all information available regarding this patient. Last updated 18.[employer] Allergies Active Allergy Reactions Criticality Noted Date Comments Codeine Nausea and/or Vomiting Low 2016 Medications * Be aware that medications may not be up to date on this document. Alwaysverify current medications with the patient. Medication Sig Dispensed Refills Start Date End Date Status metFORMIN (GLUCOPHAGE) 1000 MG tablet Take 1 (one) tablet by mouth BID 2 12/18/2017 Active fenofibrate (LOFIBRA) 160 MG tablet Take 1 (one) tablet by mouth 07/23/2016 Active simvastatin (ZOCOR) 20 MG tablet Take 1 (one) tablet by mouth 07/23/2016 Active levothyroxine (SYNTHROID) 75 MCG tablet Take 1 (one) tablet by mouth DAILY 08/02/2016 Active losartan (COZAAR) 100 MG tablet Take 1 (one) tablet by mouth once daily 4 03/21/2018 Active ONETOUCH VERIO test strip Use 1 (one) strip as directed 4 03/09/2018 Active GLIPIZIDE XL 10 MG tablet Take 1 (one) tablet by mouth 2 times daily 3 06/05/2018 Active hydroCHLOROthiazi de (HYDRODIURIL) 25 MG tablet Take 1 (one) tablet by mouth once daily 10/01/2019 Active potassium chloride ER (KLOR-CON) 20 MEQ tablet Take 1 (one) tablet by mouth 2 times daily 07/22/2020 Active omeprazole (PRILOSEC) 40 MG capsule Take 1 (one) capsule by mouth daily before breakfast Active amLODIPine (NORVASC) 5 MG tablet Take 1 (one) tablet by mouth once daily 12/02/2020 Active JANUVIA 100 MG tablet Take 1 (one) tablet by mouth once daily 07/05/2021 Active isosorbide mononitrate CR 24hr (IMDUR) 30 MG tablet Take 1 (one) tablet by mouth once daily 07/14/2021 Active Mounjaro 5 MG/0.5ML injection Inject 0.5 mL subcutaneously every 7 days 09/01/2022 Active aspirin EC (Ecotrin) 81 MG tablet Take 1 (one) tablet by mouth every 24 hours Active vitamin D, ergocalciferol, (Drisdol) 1.25 MG (28415 UT) capsule Take 1 (one) capsule by mouth every 7 days 10/06/2022 Active cyanocobalamin (Vitamin B-12) injection Inject 1,000 (one thousand) mcg subcutaneously every 30 days 03/03/2023 Active HYDROcodone-aceta minophen (Worth) 5-325 MG tablet Take 1 (one) tablet by mouth every 6 hours as needed for Pain Active leflunomide (Arava) 20 MG tablet Take 1 (one) tablet by mouth once daily Active valACYclovir (Valtrex) 1 GM tablet Active nitroGLYCERIN (Nitrostat) 0.4 MG tablet Dissolve 1 (one) tablet under the tongue 08/21/2023 Active etanercept (Enbrel) 50 MG/ML auto-injector penIndications:Se ropositive erosive rheumatoid arthritis (HCC) Inject 50 (fifty) mg subcutaneously every 7 days 4 mL 5 07/18/2024 Active hydroxychloroquin e (Plaquenil) 200 MG tabletIndications :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 arthritis (HCC),Therapeutic drug monitoring,High risk medication use TAKE 1 AND 1/2 TABLETS BY MOUTH TWICE DAILY 270 tablet 3 10/09/2024 Active Active Problems Problem Noted Date Diagnosed Date Rheumatoid arthritis with rheumatoid factor 04/23 Other prison (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 7 Encounter for therapeutic drug level monitoring 05/12/2017 Encounters Date Type Department Care Team Description 10/07/2024 Refill [facility] - Rheumatology [address] [place] [phone] Lonnie Tai MD Refill Request 08/30/2024 Telephone [facility] - Rheumatology [address] [place] [phone] Lonnie Tai MD Update 08/29/2024 Refill [facility] - Rheumatology [address] [place] [phone] Lonnie Tai MD Refill Request 08/27/2024 3:34 PM LINE O SCRIBE OPERATOR - 08/27/2024 11:59 PM [facility] Hospital Encounter [facility] DIAGNOSTIC RAD OP [address] [place] [address] Lonnie Tai MD Discharge Disposition: Home or Self Care 08/27/2024 3:34 PM LINE O SCRIBE OPERATOR - 08/27/2024 11:59 PM LINE O SCRIBE OPERATOR Hospital Encounter [facility] LAB OP DRAW STATION [address] [place] [address] Discharge Disposition: Home or Self Care 08/27/2024 3:00 PM LINE O SCRIBE OPERATOR Office Visit [facility] - Rheumatology [address] [place] [phone] Lonnie Tai MD 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 erosive rheumatoid arthritis (HCC) (Primary Dx); 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 arthritis (HCC); Therapeutic drug monitoring; High risk medication use; Rheumatoid arthritis involving multiple joints (HCC) 08/23/2024 Orders Only [facility] - Rheumatology [address] [place] [phone] Dennis Davidson MD from Last 3 Months Immunizations Name Administration Dates Next Due Covid Moderna primary monova lent 12+ yr 0.5mL 01/01/2021 INFLUENZA VACCINE 07/01/2021,07/21/2020,08/12/20 16 INFLUENZA VACCINE, HIGH-DOSE , QUADR. (FLUZONE HIGH-DOSE QUADRIVALENT; 65Y+), 0.7 ML (HD-IIV4) 08/04/2022,07/01/2021,07/21/2020,2018,07/04/2018,08/11/2017 PNEUMOCOCCAL PPSV23 08/24/2017 Pneumococcal Pcv13 Conj 12/02/2020 Social History Tobacco Use Types Packs/Day Years Used Date Smoking Tobacco: Former Smokeless Tobacco: Never Tobacco Cessation:Counseling Given: Not Answered Alcohol Use Standard Drinks/Week Comments Not Currently 1 (1 standard drink = 0.6 oz pur e alcohol) occaisionally PHQ-2 Answer Date Recorded Patient Health Questionnaire-2 Score 0 11/14/2023 Sex and Gender Information Value Date Recorded Sex Assigned at Not on file Gender Identity Not on file Sexual Orientation Not on file Last Filed Vital Signs Vital Sign Reading Time Taken Comments Blood Pressure 153/79 08/27/2024 3:05 PM LINE O SCRIBE OPERATOR Pulse 95 08/27/2024 3:05 PM LINE O SCRIBE OPERATOR Temperature 36.8 ??C (98.2 ??F) 08/27/2024 3:05 PM CS T Respiratory Rate 18 08/11/2017 1:54 PM CDT Oxygen Saturation 98% 08/27/2024 3:05 PM LINE O SCRIBE OPERATOR Inhaled Oxygen Concentration - - Weight 76.1 kg (167 lb 12.8 oz) 08/27/2024 3:05 PM LINE O SCRIBE OPERATOR Height 170.2 cm (5' 7 ) 08/27/2024 3:05 PM LINE O SCRIBE OPERATOR Body Mass Index 26.28 08/27/2024 3:05 PM LINE O SCRIBE OPERATOR Plan of Treatment Upcoming Encounters Date Type Department Care Team (Late st Contact Info) Description 01/09/2025 2:00 PM CDT Office Visit [facility] - [address], [place] [phone] Thalia Dunlap MD [address] [place] [address] [address] [place] [phone] 01/09/2025 2:30 PM CDT Office Visit [facility] - [address], [place] [phone] Matias Lewis III, MD [address] [place] [address] [address] [address] 02/25/2025 2:30 PM CDT Office Visit [facility] - Rheumatology [address] [facility] [place] [phone] Lonnie Tai MD [address] [facility] [place] [address] Health Maintenance Due Date Last Done Comments COLOGUARD (AGES 45-75) - COLON CA SCREENING 1952 COLON MONITORING 1952 COLONOSCOPY - COLON CA SCREENING 1952 CT COLONOGRAPHY - COLON CA SCREENING 1952 Colorectal Cancer Screening 1952 FIT - COLON CA SCREENING 1952 FLEX SIG - COLON CA SCREENING 1952 MAMMOGRAM 1952 DTAP/TDAP/TD VACCINES (1 - Tdap) 1971 ZOSTER VACCINE (1 of 2) 2002 COVID-19 VACCINE (3 - season) 2024 01/29/2021, 01/01/2021 DEPRESSION SCREENING 10/23/2024 11/14/2023, 09/20/20 22 MEDICARE AWV ? CALENDAR YEAR 2024 Respiratory Syncytial Virus (RSV) Vaccine Pt: or over 60 yrs (1 - 1-dose 75+ series) 2027 PNEUMOCOCCAL VACCINE 50+ Completed 12/02/2020, 11/2016 BONE DENSITY TESTING Completed 05/13/2021 HEPATITIS C SCREENING Completed 08/16/2023 , 12/15/2022, 12/11/2020, Additional history exists INFLUENZA VACCINE Completed 08/27/2024, , 07/01/2021, Additional history exists HEPATITIS B VACCINE Aged Out No longe r eligible based on patient's age to complete this topic HIB VACCINE Aged Out No longer eligi ble based on patient's age to complete this topic HPV VACCINE Aged Out No longer eligi ble based on patient's age to complete this topic MENINGOCOCCAL (Group B) VACCINE Aged Out No longer eligible based on patient's age to complete this topic MENINGOCOCCAL VACCINE Aged Out No shavon micah eligible based on patient's age to complete this topic Procedures Procedure Name Priority Date/Time Associated Diagnosis Comments PROTEIN CREATININE RATIO URINE RANDOM PNL Routine 08/27/2024 4:00 PM LINE O SCRIBE OPERATOR 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 erosive rheumatoid arthritis (HCC) 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 arthritis (HCC) Therapeutic drug monitoring High risk medication use Rheumatoid arthritis involving multiple joints (HCC) URINALYSIS W/MICROSCOPIC REFLEX TO CULTURE Routine 08/27/2024 4:00 PM LINE O SCRIBE OPERATOR 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 erosive rheumatoid arthritis (HCC) 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 arthritis (HCC) Therapeutic drug monitoring High risk medication use Rheumatoid arthritis involving multiple joints (HCC) HEPATITIS B SURFACE ANTIGEN W RFLX CONFIRMATION Routine 08/27/2024 3:52 PM LINE O SCRIBE OPERATOR 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 erosive rheumatoid arthritis (HCC) 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 arthritis (HCC) Therapeutic drug monitoring High risk medication use Rheumatoid arthritis involving multiple joints (HCC) HEPATITIS B SURFACE ANTIBODY Routine 08/27/2024 3:52 PM LINE O SCRIBE OPERATOR 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 erosive rheumatoid arthritis (HCC) 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 arthritis (HCC) Therapeutic drug monitoring High risk medication use Rheumatoid arthritis involving multiple joints (HCC) HEPATITIS B CORE ANTIBODY TOTAL Routine 08/27/2024 3:52 PM LINE O SCRIBE OPERATOR 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 erosive rheumatoid arthritis (HCC) 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 arthritis (HCC) Therapeutic drug monitoring High risk medication use Rheumatoid arthritis involving multiple joints (HCC) QUANTIFERON-TB GOLD PLUS 4-TUBE Routine 08/27/2024 3:52 PM LINE O SCRIBE OPERATOR 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 erosive rheumatoid arthritis (HCC) 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 arthritis (HCC) Therapeutic drug monitoring High risk medication use Rheumatoid arthritis involving multiple joints (HCC) CK BLOOD Routine 08/27/2024 3:52 PM LINE O SCRIBE OPERATOR 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 arthritis (HCC) Therapeutic drug monitoring ALDOLASE Routine 08/27/2024 3:52 PM LINE O SCRIBE OPERATOR 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 arthritis (HCC) Therapeutic drug monitoring RHEUMATOID FACTOR BLOOD QUANTITATIVE Routine 08/27/2024 3:52 PM LINE O SCRIBE OPERATOR 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 arthritis (HCC) Therapeutic drug monitoring CYCLIC CITRULLINATED PEPTIDE(CCP) AB IGG Routine 08/27/2024 3:52 PM LINE O SCRIBE OPERATOR 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 arthritis (HCC) Therapeutic drug monitoring ERYTHROCYTE SEDIMENTATION RATE Routine 08/27/2024 3:52 PM LINE O SCRIBE OPERATOR 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 arthritis (HCC) Therapeutic drug monitoring C-REACTIVE PROTEIN Routine 08/27/2024 3: 52 PM LINE O SCRIBE OPERATOR 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 arthritis (HCC) Therapeutic drug monitoring COMPREHENSIVE METABOLIC PANEL Routine 08/27/2024 3:52 PM LINE O SCRIBE OPERATOR 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 arthritis (HCC) Therapeutic drug monitoring CBC W AUTO DIFFERENTIAL Routine 08/27/2024 3:52 PM LINE O SCRIBE OPERATOR 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 arthritis (HCC) Therapeutic drug monitoring XR CHEST 2VW Routine 08/27/2024 3:35 PM LINE O SCRIBE OPERATOR 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 erosive rheumatoid arthritis (HCC) 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 arthritis (HCC) Therapeutic drug monitoring High risk medication use Rheumatoid arthritis involving multiple joints (HCC) HEPATITIS C ANTIBODY Routine 08/16/2023 8:36 AM CDT 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 arthritis (HCC) Therapeutic drug monitoring High risk medication use DEXA BONE DENSITY AXIAL SKELETON Routine 05/13/2021 8:11 AM CDT 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 erosive rheumatoid arthritis (HCC) Osteoporosis screening from Last 3 Months or Most Recently Relevant to Health Maintenance Results * (ABNORMAL) URINALYSIS W/MICROSCOPIC REFLEX TO CULTURE (08/27/2024 4:00 PM LINE O SCRIBE OPERATOR) Color UA Straw Straw, Yellow 08/27/2024 4:45 PM [facility] Clarity UA Clear Clear 08/27/2024 4:45 PM [facility] Specific [place] UA 1.002(L) 1.005 - 1.030 08/27/2024 4:45 PM [facility] pH UA 6.0 5.0 - 8.0 pH 08/27/2024 4:45 PM [facility] Protein UA Negative Negative 08/27/2024 4:45 PM [facility] Glucose UA 3+(A) Negative 08/27/2024 4:45 PM [facility] Ketone UA Negative Negative 08/27/2024 4:45 PM [facility] Bilirubin UA Negative Negative 08/27/2024 4:45 PM [facility] Blood UA Negative Negative 08/27/2024 4:45 PM [facility] Nitrite UA Negative Negative 08/27/2024 4:45 PM [facility] Leukocyte Esterase Negative Negative 08/27/2024 4:45 PM [facility] Urobilinogen UA Negative Negative mg/dL 08/27/2024 4:45 PM [facility] RBC UA None Seen None Seen, 0-2, 3-5 /HPF 08/27/2024 4:45 PM [facility] WBC UA 0-5 None Seen, 0-5 /HPF 08/27/2024 4:45 PM [facility] Bacteria UA Trace(A) None /HPF 08/27/2024 4:45 PM [facility] Squamous Epithelial Cells UA 0-2 None Seen, 0-2, 3-5 /HPF 08/27/2024 4:45 PM [facility] Urine URINE SPECIMEN OBTAINED BY CLEAN CATCH PROCEDURE / Unknown Collection / Unknown 08/27/2024 4:00 PM LINE O SCRIBE OPERATOR 08/27/2024 4:29 PM [facility] - 08/27/2024 4:45 PM LINE O SCRIBE OPERATOR Culture Not Indicated Lonnie Tai MD LAB - URINALYSIS ORDERABLES Performing Organization Address City/State/[facility] Co de Phone Number [address] [address], [facility] [phone] * PROTEIN CREATININE RATIO URINE RANDOM PNL (08/27/2024 4:00 PM LINE O SCRIBE OPERATOR) Protein Urine <7 Not Established mg/dL 08/27/2024 5:18 PM [facility] Creatinine Urine 26.51 Not Established mg/dL 08/27/2024 5:18 PM [facility] Protein/Creatinin e Ratio Urine 08/27/2024 5:18 PM [facility] Comment:Unable to calculate ratio because the analyte concentration is outside the instrument measuring range. Urine URINE SPECIMEN OBTAINED BY CLEAN CATCH PROCEDURE / Unknown Collection / Unknown 08/27/2024 4:00 PM LINE O SCRIBE OPERATOR 08/27/2024 4:29 PM LINE O SCRIBE OPERATOR Lonnie Tai MD LAB - URINE CHEM ISTRY ORDERABLES [facility] [address] [place] [phone], [facility] [phone] * QUANTIFERON-TB GOLD PLUS 4-TUBE (08/27/2024 3:52 PM LINE O SCRIBE OPERATOR) QuantiFERON Mitogen Minus NIL 9.96 IU/mL 08/29/2024 8:21 PM LINE O SCRIBE OPERATOR [facility] ([facility]) QuantiFERON Nil Value 0.04 IU/mL 08/29/2024 8:21 PM LINE O SCRIBE OPERATOR [facility]) QuantiFERON Plus TB1 Minus NIL 0.01 <=0.34 IU/mL 08/29/2024 8:21 PM LINE O SCRIBE OPERATOR [facility] ([facility]) QuantiFERON Plus TB2 Minus NIL 0.00 <=0.34 IU/mL 08/29/2024 8:21 PM LINE O SCRIBE OPERATOR [facility] ([facility]) QuantiFERON-TB Gold Plus Negative Negative 08/29/2024 8:21 PM LINE O SCRIBE OPERATOR [facility] ([facility]) Comment: INTERPRETIVE INFORMATION:Quantiferon TB Gold Plus Interferon gamma release is measured for specimens from each of the four collection tubes. A qualitative result (Negative, Positive, or Indeterminate) is based on interpretation of the four values: NIL, MITOGEN minus NIL (MITOGEN-NIL), TB1 minus NIL (TB1-NIL), and TB2 minus NIL (TB2-NIL). The NIL value represents nonspecific reactivity produced by the patient specimen. The MITOGEN-NIL value serves as the positive control for the patient specimen, demonstrating successful lymphocyte activity. The TB1-NIL tube specifically detects CD4+ lymphocyte reactivity, specifically stimulated by the TB1 antigens. The TB2-NIL tube detects both CD4+ and CD8+ lymphocyte reactivity, stimulated by TB2 antigens. An overall Negative result does not completely rule out TB infection. A false-positive result in the absence of other clinical evidence of TB infection is not uncommon. Refer to: Updated Guidelines for Using Interferon Gamma Release Assays to Detect Mycobacterium tuberculosis Infection -- [place], 2010 (http://www.cdc.gov/mmwr/preview/mmwrhtml/bz3758w3.htm), for more information concerning test performance in low-prevalence populations and use in occupational screening. Performed By: [place] [address] Knock Out Hand: Kleber Choudhary MD, PhD CLIA Number: [id number] Blood BLOOD SPECIMEN / Unknown Lab Venipuncture / Unknown 08/27/2024 3:52 PM LINE O SCRIBE OPERATOR 08/27/2024 4:38 PM LINE O SCRIBE OPERATOR Lonnie Tai MD LAB - CHEMISTRY ORDERABLES Performing Organization Address City/[facility]/ZIP Co de Phone Number [facility] ([facility]) [address] [place] [address] * RHEUMATOID FACTOR BLOOD QUANTITATIVE (08/27/2024 3:52 PM LINE O SCRIBE OPERATOR) Rheumatoid Factor <15 <30 IU/mL 08/27/2024 5:01 PM LINE O SCRIBE OPERATOR [facility] Rheumatoid Factor Screen Negative Negative 08/27/2024 5:01 PM LINE O SCRIBE OPERATOR [facility] Blood BLOOD SPECIMEN / Unknown Lab Venipuncture / Unknown 08/27/2024 3:52 PM LINE O SCRIBE OPERATOR 08/27/2024 4:29 PM LINE O SCRIBE OPERATOR Lonnie Tai MD LAB - CHEMISTRY ORDERABLES [address] [address], [facility] [phone] * C-REACTIVE PROTEIN (08/27/2024 3:52 PM LINE O SCRIBE OPERATOR) C-Reactive Protein <0.5 <=0.5 mg/dL 08/27/2024 5:21 PM LINE O SCRIBE OPERATOR [facility] Blood BLOOD SPECIMEN / Unknown Lab Venipuncture / Unknown 08/27/2024 3:52 PM LINE O SCRIBE OPERATOR 08/27/2024 4:45 PM LINE O SCRIBE OPERATOR Lonnie Tai MD LAB - CHEMISTRY ORDERABLES [address] [address], [facility] [phone] * ALDOLASE (08/27/2024 3:52 PM LINE O SCRIBE OPERATOR) Aldolase 3.0 1.2 - 7.6 U/L 08/29/2024 8:19 AM LINE O SCRIBE OPERATOR [facility] ([facility]) Comment: REFERENCE INTERVAL: Aldolase Access complete set of age- and/or gender-specific reference intervals for this test in the [facility] Test Directory ([employer]). Performed By: [facility] [address] [place] [address] Knock Out Hand: Kleber Choudhary MD, PhD CLIA Number: [id number] Blood BLOOD SPECIMEN / Unknown Lab Venipuncture / Unknown 08/27/2024 3:52 PM LINE O SCRIBE OPERATOR 08/27/2024 4:29 PM LINE O SCRIBE OPERATOR Lonnie Tai MD LAB - CHEMISTRY ORDERABLES Performing Organization Address [facility]/ZIP Co de Phone Number [address] * (ABNORMAL) CYCLIC CITRULLINATED PEPTIDE(CCP) AB IGG (08/27/2024 3:52 PM LINE O SCRIBE OPERATOR) CCP Antibody IgG 15.4(H) <5.0 U/mL 08/27/2024 5:26 PM LINE O SCRIBE OPERATOR [facility] Blood BLOOD SPECIMEN / Unknown Lab Venipuncture / Unknown 08/27/2024 3:52 PM LINE O SCRIBE OPERATOR 08/27/2024 4:29 PM LINE O SCRIBE OPERATOR Lonnie Tai MD LAB - CHEMISTRY ORDERABLES [facility] [address] [place] [phone], [facility] [phone] * ERYTHROCYTE SEDIMENTATION RATE (08/27/2024 3:52 PM LINE O SCRIBE OPERATOR) Pathologist [facility] Erythrocyte Sedimentation Rate Westergren <1 0 - 30 MM/HR 08/27/2024 6:25 PM [facility] Blood BLOOD SPECIMEN / Unknown Lab Venipuncture / Unknown 08/27/2024 3:52 PM LINE O SCRIBE OPERATOR 08/27/2024 4:42 PM LINE O SCRIBE OPERATOR Lonnie Tai MD LAB - HEMATOLOGY ORDERABLES Performing Organization Address City/State/[facility] Co de Phone Number [facility] [address] [place] [phone], [facility] [phone] * (ABNORMAL) CBC WITH DIFFERENTIAL (08/27/2024 3:52 PM LINE O SCRIBE OPERATOR) [facility] WBC 11.8(H) 4.0 - 10.7 x10E9/L 08/27/2024 5:13 PM [facility] RBC Count 4.04 3.90 - 5.20 x10E12/L 08/27/2024 5:13 PM [facility] Hemoglobin 8.4(L) 11.9 - 15.8 g/dL 08/27/2024 5:13 PM [facility] Hematocrit 26.5(L) 34.8 - 46.1 % 08/27/2024 5:13 PM [facility] MCV 65.6(L) 80.0 - 98.0 fL 08/27/2024 5:13 PM [facility] MCH 20.8(L) 26.7 - 33.6 pg 08/27/2024 5:13 PM [facility] MCHC 31.7 31.7 - 36.3 g/dL 08/27/2024 5:13 PM [facility] RDW-CV 18.0(H) 11.3 - 14.8 % 08/27/2024 5:13 PM [facility] Platelet Count 351 150 - 420 x10E9/L 08/27/2024 5:13 PM [facility] MPV 11.3 7.8 - 11.4 fL 08/27/2024 5:13 PM [facility] Neutrophil % 71.1 41.0 - 74.0 % 08/27/2024 5:13 PM [facility] Lymphocyte % 19.0 17.0 - 47.0 % 08/27/2024 5:13 PM [facility] Monocyte % 6.8 3.0 - 11.0 % 08/27/2024 5:13 PM [facility] Eosinophil % 1.1 0.0 - 7.0 % 08/27/2024 5:13 PM [facility] Basophil % 1.3 0.0 - 1.6 % 08/27/2024 5:13 PM [facility] Immature Granulocytes % 0.7 0.0 - 1.0 % 08/27/2024 5:13 PM [facility] Neutrophil Absolute 8.41(H) 1.60 - 7.50 x10E9/L 08/27/2024 5:13 PM [facility] Lymphocyte Absolute 2.25 1.00 - 4.40 x10E9/L 08/27/2024 5:13 PM [facility] Monocyte Absolute 0.81 0.15 - 1.00 x10E9/L 08/27/2024 5:13 PM [facility] Eosinophil Absolute 0.13 0.00 - 0.60 x10E9/L 08/27/2024 5:13 PM [facility] Basophil Absolute 0.15(H) 0.00 - 0.13 x10E9/L 08/27/2024 5:13 PM [facility] Blood BLOOD SPECIMEN / Unknown Lab Venipuncture / Unknown 08/27/2024 3:52 PM LINE O SCRIBE OPERATOR 08/27/2024 4:42 PM [facility] Lonnie Tai MD LAB - HEMATOLOGY ORDERABLES [address] [address], [facility] [phone] * (ABNORMAL) COMPREHENSIVE METABOLIC PANEL (08/27/2024 3:52 PM LINE O SCRIBE OPERATOR) BUN 8 7 - 26 mg/dL 08/27/2024 5:20 PM [facility] Creatinine 1.40(H) 0.56 - 0.96 mg/dL 08/27/2024 5:20 PM [facility] Sodium 129(L) 136 - 145 mmol/L 08/27/2024 5:20 PM [facility] Potassium 4.0 3.5 - 4.5 mmol/L 08/27/2024 5:20 PM [facility] Chloride 98 98 - 107 mmol/L 08/27/2024 5:20 PM [facility] CO2 18(L) 22 - 29 mmol/L 08/27/2024 5:20 PM [facility] Glucose 286(H) 70 - 99 mg/dL 08/27/2024 5:20 PM [facility] Calcium 9.0 8.4 - 10.2 mg/dL 08/27/2024 5:20 PM [facility] Protein Total 6.7 6.0 - 8.3 g/dL 08/27/2024 5:20 PM [facility] Albumin 4.3 3.4 - 5.0 g/dL 08/27/2024 5:20 PM [facility] Bilirubin Total 0.3 0.2 - 1.2 mg/dL 08/27/2024 5:20 PM [facility] Alkaline Phosphatase 115 40 - 150 U/L 08/27/2024 5:20 PM [facility] ALT 13 5 - 55 U/L 08/27/2024 5:20 PM [facility] AST 14 5 - 34 U/L 08/27/2024 5:20 PM [facility] Anion Gap 13 6 - 16 08/27/2024 5:20 PM [facility] BUN/Creatinine Ratio 6(L) 7 - 23 08/27/2024 5:20 PM [facility] Osmolality Calculated 277 275 - 295 mOsm/kg 08/27/2024 5:20 PM [facility] Albumin/Globulin Ratio 1.8 1.1 - 2.3 08/27/2024 5:20 PM [facility] eGFR by CKD-EPI 40(L) >=90 mL/min/1.7 3 m2 08/27/2024 5:20 PM [facility] Blood BLOOD SPECIMEN / Unknown Lab Venipuncture / Unknown 08/27/2024 3:52 PM LINE O SCRIBE OPERATOR 08/27/2024 4:45 PM LINE O SCRIBE OPERATOR Lonnie Tai MD LAB - CHEMISTRY ORDERABLES Performing Organization Address [facility]/ZIP Co de Phone Number [facility] [address] [place] [address], [place] [phone] * HEPATITIS B SURFACE ANTIBODY (08/27/2024 3:52 PM LINE O SCRIBE OPERATOR) Hepatitis B Virus Surface Antibody Non-react comfort Non-react comfort 08/27/2024 5:26 PM LINE O SCRIBE OPERATOR [facility] Comment: < 8 mIU/mL Hepatitis B surface Antibody (HBsAb). Nonreactive for HBsAb - individual is considered not immune to Hepatitis B Virus infection. Hepatitis B Surface Antibody Quantitative 0.0 <8.0 mIU/mL 08/27/2024 5:26 PM [facility] Comment: Hepatitis B Surface Antibody Numeric Result Interpretation: ? Nonreactive: ?<8.0 mIU/mL ? Indeterminate: ??8.0 - 12.0 mIU/mL ? Reactive: ?>12.0 mIU/mL ? Blood BLOOD SPECIMEN / Unknown Lab Venipuncture / Unknown 08/27/2024 3:52 PM LINE O SCRIBE OPERATOR 08/27/2024 4:29 PM LINE O SCRIBE OPERATOR Lonnie Tai MD LAB - CHEMISTRY ORDERABLES [facility] [address] [place] [address], [place] [phone] * HEPATITIS B CORE ANTIBODY TOTAL (08/27/2024 3:52 PM LINE O SCRIBE OPERATOR) HBc Antibody Total Non-reacti ve Non-reacti ve 08/27/2024 5:26 PM LINE O SCRIBE OPERATOR [facility] Blood BLOOD SPECIMEN / Unknown Lab Venipuncture / Unknown 08/27/2024 3:52 PM LINE O SCRIBE OPERATOR 08/27/2024 4:29 PM LINE O SCRIBE OPERATOR Lonnie Tai MD LAB - CHEMISTRY ORDERABLES Performing Organization Address City/[facility]/ZIP Co de Phone Number [address] [address], [facility] [phone] * HEPATITIS B SURFACE ANTIGEN W RFLX CONFIRMATION (08/27/2024 3:52 PM LINE O SCRIBE OPERATOR) Hepatitis B Virus Surface Antigen Non-reacti ve Non-reacti ve 08/27/2024 5:26 PM LINE O SCRIBE OPERATOR [facility] Blood BLOOD SPECIMEN / Unknown Lab Venipuncture / Unknown 08/27/2024 3:52 PM LINE O SCRIBE OPERATOR 08/27/2024 4:29 PM LINE O SCRIBE OPERATOR Lonnie Tai MD LAB - CHEMISTRY ORDERABLES Performing Organization Address [facility] Co de Phone Number [address] [address], [place] [phone] * CK BLOOD (08/27/2024 3:52 PM LINE O SCRIBE OPERATOR) CK Total 78 30 - 200 U/L 08/27/2024 5:20 PM LINE O SCRIBE OPERATOR [facility] Blood BLOOD SPECIMEN / Unknown Lab Venipuncture / Unknown 08/27/2024 3:52 PM LINE O SCRIBE OPERATOR 08/27/2024 4:45 PM LINE O SCRIBE OPERATOR Lonnie Tai MD LAB - CHEMISTRY ORDERABLES Performing Organization Address City/[facility]/ZIP Co de Phone Number [address] [address], [place] [phone] * XR Chest 2Vw (08/27/2024 3:35 PM LINE O SCRIBE OPERATOR) Anatomical Region Laterality Modality Chest Digital Radiogra phy 08/27/2024 3:38 PM LINE O SCRIBE OPERATOR Impressions 08/27/2024 3:39 PM LINE O SCRIBE OPERATOR IMPRESSION: No acute cardiopulmonary abnormalities. > Interpreting Provider: Mattie Nobles MD on 08/27/2024 3:39 PM Narrative 08/27/2024 3:39 PM LINE O SCRIBE OPERATOR PROCEDURE: ??XR CHEST 2VW DATE/TIME OF EXAM: ??08/27/2024 3:36 PM CLINICAL INFORMATION: None relevant/not provided if blank. 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 FINDINGS: Frontal and lateral views of the chest demonstrate normal cardiac size. Atherosclerotic aorta. No focal consolidation, pleural effusion or pneumothorax. No acute osseous abnormalities. Procedure Note Mattie Nobles MD - 08/27/2024 PROCEDURE: XR CHEST 2VW DATE/TIME OF EXAM: 08/27/2024 3:36 PM CLINICAL INFORMATION: None relevant/not provided if blank. 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 FINDINGS: Frontal and lateral views of the chest demonstrate normal cardiac size. Atherosclerotic aorta. No focal consolidation, pleural effusion or pneumothorax. No acute osseous abnormalities. IMPRESSION: No acute cardiopulmonary abnormalities. > Interpreting Provider: Mattie Nobles MD on 08/27/2024 3:39 PM Lonnie Tai MD DIAGNOSTIC IMAGI NG ORDERABLES * HEPATITIS C ANTIBODY (08/16/2023 8:36 AM CDT) Hepatitis C Antibody Non Reactive Non Reactive [facility] INSURANCE BILL Comment: HCV antibody alone does not differentiate between previously resolved infection and active infection. Equivocal and Reactive HCV antibody results should be followed up with an HCV RNA test to support the diagnosis of active HCV infection. FASTING Blood BLOOD SPECIMEN / Unknown 08/16/2023 8:36 AM CDT 08/16/2023 Narrative Resulting Agency Comment [facility] [address] [facility] ??[facility]ly [facility] [phone] Lonnie Tai MD LAB - CHEMISTRY ORDERABLES [facility] INSURANCE BILL [address] [place] [address] * BONE DENSITY AXIAL SKELETON(1OR MORE SITES)[id number] (05/13/2021 8:11 AM CDT) Anatomical Region Laterality Modality Other 05/13/2021 2:47 PM CDT Narrative 05/13/2021 3:03 PM CDT Examination: Dual energy x-ray absorptiometry of the hip. Clinical Indication: M05.80: 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 erosive rheumatoid arthritis Z13.820: Osteoporosis screening Findings: Detailed data from the exam is sent separately to the ordering physician and is also available on [employer], the Radiology Department's computerized picture archive system. Patient's height 67 in; weight 168 lb. SUMMARY: No prior study available for comparison. BONE MINERAL DENSITY (BMD) left femoral neck: Normal; T-score -0.1 FRAX 10 year fracture risk was not calculated because T score of spine total or hip total or femoral neck at or above -1.0. Definitions: T-score = Standard Deviation Normal: A value for bone mineral density(BMD) within 1 standard deviation of the young adult reference mean. (T-score above -1) Low bone mass(osteopenia): A value for bone mineral density(BMD) more than 1 standard deviation below the young adult mean, but less than 2.5 standard deviations below the young adult mean. ( T-score between -1 and -2.5) Osteoporosis: A value for bone mineral density 2.5 standard deviations or more below the young adult mean. ( T-score at or below -2.5) Severe osteoporosis: Osteoporosis + the presence of one or more fragility fractures. Please note that T-score values are important in determining increased risk for fractures. The T-score represents the standard deviation above or below the mean bone mineral density for young adults. With each -1 standard deviation decrease in bone mineral density, the risk for fracture doubles exponentially. A T-score of -1 will double the risk , and -2 will be 4 times the risk. As a rule of thumb, a T-score of -1 to -2.5 indicates increasing degrees of osteopenia. This report was approved ??by Sachin Arita ?? on 05/13/2021 2:48 PM . I, Dr. TANVI FLORES D.O. have personally reviewed and interpreted this examination/study. This report was electronically signed by TANVI FLORES D.O. ??on 05/13/2021 3:03 PM . Procedure Note Tanvi Flores, DO - 05/13/2021 Examination: Dual energy x-ray absorptiometry of the hip. Clinical Indication: M05.80: 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 erosive rheumatoid arthritis Z13.820: Osteoporosis screening Findings: Detailed data from the exam is sent separately to the ordering physician and is also available on [employer], the Radiology Department's computerized picture archive system. Patient's height 67 in; weight 168 lb. SUMMARY: No prior study available for comparison. BONE MINERAL DENSITY (BMD) left femoral neck: Normal; T-score -0.1 FRAX 10 year fracture risk was not calculated because T score of spine total or hip total or femoral neck at or above -1.0. Definitions: T-score = Standard Deviation Normal: A value for bone mineral density(BMD) within 1 standarddeviation of the young adult reference mean. (T-score above -1) Low bone mass(osteopenia): A value for bone mineral density(BMD) morethan 1 standard deviation below the young adult mean, but less than 2.5 standard deviations below the young adult mean. ( T-score between -1 and -2.5) Osteoporosis: A value for bone mineral density 2.5 standard deviationsor more below the young adult mean. ( T-score at or below -2.5) Severe osteoporosis: Osteoporosis + the presence of one or morefragility fractures. Please note that T-score values are important in determining increased risk for fractures. The T-score represents the standard deviation aboveor below the mean bone mineral density for young adults. With each -1 standard deviation decrease in bone mineral density, the risk forfracture doubles exponentially. A T-score of -1 will double the risk , and -2will be 4 times the risk. As a rule of thumb, a T-score of -1 to -2.5indicates increasing degrees of osteopenia. This report was approved by Sachin Arita on 05/13/2021 2:48 PM . I, Dr. TANVI FLORES D.O. have personally reviewed and interpreted this examination/study. This report was electronically signed by TANVI FLORES D.O. on05/13/2021 3:03 PM . Gerald Merchant MD DEXA ORDERABLES from Last 3 Months or Most Recently Relevant to Health Maintenance Care Teams Skidder Lever Operator Relationship Specialty Start Date End Date Eliana Mcneal [address] [place] [address] PCP - General 07/10/24
--- OUTSIDE RECORDS SUMMARY | 2024-11-09 23:13 | XMS_ITS | Encounter Summary ---
Author Organization [facility] Address [address] [place] [address] Care Team Providers Care Manager Electrical Name Role Phone Eliana Mcneal Primary Care Provider [phone] Reason for Visit * Reason Comments Refill Request Encounter Details Date Type Department Care Team ([facility] Contact Info) Description 08/29/2024 Refill [facility] - Rheumatology [address] [place] [address], [place] [phone] Lonnie Tai MD [address] [facility] [place] [place] [address] Refill Request Social History Tobacco Use Types [...] on file documented as of this encounter Plan of Treatment Upcoming Encounters Date Type Department Care Team ([facility] Contact Info) Description 01/09/2025 2:00 PM CDT Office Visit [facility] - GI [address] [facility], [place] [phone] Thalia Dunlap MD [address] [facility] [address] [place] [phone] 01/09/2025 2:30 PM CDT Office Visit [facility] - GI [address] [place] [address], [place] [phone] Matias Lewis III, MD [address] [facility] [address] [place] [phone] 02/25/2025 2:30 PM CDT Office Visit [facility] - Rheumatology [facility] [facility], [place] [phone] Lonnie Tai MD [address] [facility] [place] [address] documented as of this encounter Visit Diagnoses Diagnosis 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 arthritis (HCC) Rheumatoid arthritis Therapeutic drug monitoring Encounter for therapeutic drug monitoring High risk medication use Encounter for long-term (current) use of other medications documented in this encounter Care Teams Manager Electrical Relationship Specialty Start Date End Date Eliana Mcneal [address] [place] [phone] PCP - General 07/10/24 documented as of this encounter
--- OUTSIDE RECORDS SUMMARY | 2024-11-09 23:13 | XMS_ITS | Patient Health Summary ---
Author Organization [facility] Address [address] [place] [address] Care Team Providers [employer] Name Role Phone Eliana Mcneal Primary Care Provider Note from [facility],non-owned Affiliates and Associated Physician Practices is amultiple site organization consisting of ambulatory clinics and hospital sitesin [place], [place], [place] and [place]. This disclosure is being madepursuant to the Care Everywhere program and may not contain all information available regarding this patient. Last updated 18.[facility] [place] Allergies * Codeine(Nausea and/or Vomiting) -Low Criticality * Codeine(Nausea and/or Vomiting) -Low Criticality,Inactive Medications * Be aware that medications may not be up to date on this document. Alwaysverify current medications with the patient. * metFORMIN (GLUCOPHAGE) 1000 MG tablet(Started 12/18/2017) Take 1 (one) tablet by mouth BID 2 refills left * fenofibrate (LOFIBRA) 160 MG tablet(Started 07/23/2016) Take 1 (one) tablet by mouth * simvastatin (ZOCOR) 20 MG tablet(Started 07/23/2016) Take 1 (one) tablet by mouth * levothyroxine (SYNTHROID) 75 MCG tablet(Started 08/02/2016) Take 1 (one) tablet by mouth DAILY * losartan (COZAAR) 100 MG tablet(Started 03/21/2018) Take 1 (one) tablet by mouth once daily 4 refills left * ONETOUCH VERIO test strip(Started 03/09/2018) Use 1 (one) strip as directed 4 refills left * GLIPIZIDE XL 10 MG tablet(Started 06/05/2018) Take 1 (one) tablet by mouth 2 times daily 3 refills left * hydroCHLOROthiazide (HYDRODIURIL) 25 MG tablet(Started 10/01/2019) Take 1 (one) tablet by mouth once daily * potassium chloride ER (KLOR-CON) 20 MEQ tablet(Started 07/22/2020) Take 1 (one) tablet by mouth 2 times daily * omeprazole (PRILOSEC) 40 MG capsule Take 1 (one) capsule by mouth daily before breakfast * amLODIPine (NORVASC) 5 MG tablet(Started 12/02/2020) Take 1 (one) tablet by mouth once daily * JANUVIA 100 MG tablet(Started 07/05/2021) Take 1 (one) tablet by mouth once daily * isosorbide mononitrate CR 24hr (IMDUR) 30 MG tablet(Started 07/14/2021) Take 1 (one) tablet by mouth once daily * Mounjaro 5 MG/0.5ML injection(Started 09/01/2022) Inject 0.5 mL subcutaneously every 7 days * aspirin EC (Ecotrin) 81 MG tablet Take 1 (one) tablet by mouth every 24 hours * vitamin D, ergocalciferol, (Drisdol) 1.25 MG (80567 UT) capsule(Started 10/06/2022) Take 1 (one) capsule by mouth every 7 days * cyanocobalamin (Vitamin B-12) injection(Started 03/03/2023) Inject 1,000 (one thousand) mcg subcutaneously every 30 days * HYDROcodone-acetaminophen ([place]) 5-325 MG tablet Take 1 (one) tablet by mouth every 6 hours as needed for Pain * leflunomide (Arava) 20 MG tablet Take 1 (one) tablet by mouth once daily * valACYclovir (Valtrex) 1 GM tablet * nitroGLYCERIN (Nitrostat) 0.4 MG tablet(Started 08/21/2023) Dissolve 1 (one) tablet under the tongue * etanercept (Enbrel) 50 MG/ML auto-injector pen(Started 07/18/2024) Inject 50 (fifty) mg subcutaneously every 7 days 5 refills by 07/18/2025 * hydroxychloroquine (Plaquenil) 200 MG tablet(Started 10/09/2024) TAKE 1 AND 1/2 TABLETS BY MOUTH TWICE DAILY 3 refills by 10/09/2025 Active Problems Problem Noted Date Diagnosed Date Rheumatoid arthritis with rheumatoid factor 04/23 Other [facility] (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 7 Encounter for therapeutic drug level monitoring 05/12/2017 Immunizations * Covid Moderna primary monovalent 12+ yr 0.5mL(Given 01/01/2021) * INFLUENZA VACCINE(Given 07/01/2021, 07/21/2020, 2016) * INFLUENZA VACCINE, HIGH-DOSE, QUADR. 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 Pulse 95 08/27/2024 3:05 PM J2EE ENGINEER Temperature 36.8 ??C (98.2 ??F) 08/27/2024 3:05 PM CS T Respiratory Rate 18 08/11/2017 1:54 PM CDT Oxygen Saturation 98% 08/27/2024 3:05 PM J2EE ENGINEER Inhaled Oxygen Concentration - - Weight 76.1 kg (167 lb 12.8 oz) 08/27/2024 3:05 PM J2EE ENGINEER Height 170.2 cm (5' 7 ) 08/27/2024 3:05 PM J2EE ENGINEER Body Mass Index 26.28 08/27/2024 3:05 PM J2EE ENGINEER Procedures * PROTEIN CREATININE RATIO URINE RANDOM PNL(Performed 08/27/2024) 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), 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 arthritis (HCC), Therapeutic drug monitoring, High risk medication use, Rheumatoid arthritis involving multiple joints (HCC) * URINALYSIS W/MICROSCOPIC REFLEX TO CULTURE(Performed 08/27/2024) 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), 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 arthritis (HCC), Therapeutic drug monitoring, High risk medication use, Rheumatoid arthritis involving multiple joints (HCC) * HEPATITIS B SURFACE ANTIGEN W RFLX CONFIRMATION(Performed 08/27/2024) 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), 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 arthritis (HCC), Therapeutic drug monitoring, High risk medication use, Rheumatoid arthritis involving multiple joints (HCC) * HEPATITIS B SURFACE ANTIBODY(Performed 08/27/2024) 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), 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 arthritis (HCC), Therapeutic drug monitoring, High risk medication use, Rheumatoid arthritis involving multiple joints (HCC) * HEPATITIS B CORE ANTIBODY TOTAL(Performed 08/27/2024) 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), 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 arthritis (HCC), Therapeutic drug monitoring, High risk medication use, Rheumatoid arthritis involving multiple joints (HCC) * QUANTIFERON-TB GOLD PLUS 4-TUBE(Performed 08/27/2024) 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), 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 arthritis (HCC), Therapeutic drug monitoring, High risk medication use, Rheumatoid arthritis involving multiple joints (HCC) * CK BLOOD(Performed 08/27/2024) Performed for 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 arthritis (HCC), Therapeutic drug monitoring * ALDOLASE(Performed 08/27/2024) Performed for 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 arthritis (HCC), Therapeutic drug monitoring * RHEUMATOID FACTOR BLOOD QUANTITATIVE(Performed 08/27/2024) Performed for 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 arthritis ([facility]), Therapeutic drug monitoring * CYCLIC CITRULLINATED PEPTIDE(CCP) AB IGG(Performed 08/27/2024) Performed for 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 arthritis (HCC), Therapeutic drug monitoring * ERYTHROCYTE SEDIMENTATION RATE(Performed 08/27/2024) Performed for 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 arthritis (HCC), Therapeutic drug monitoring * C-REACTIVE PROTEIN(Performed 08/27/2024) Performed for 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 arthritis (HCC), Therapeutic drug monitoring * COMPREHENSIVE METABOLIC PANEL(Performed 08/27/2024) Performed for 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 arthritis (HCC), Therapeutic drug monitoring * CBC W AUTO DIFFERENTIAL(Performed 08/27/2024) Performed for 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 arthritis ([facility]), Therapeutic drug monitoring * XR CHEST 2VW(Performed 08/27/2024) 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), 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 arthritis (HCC), Therapeutic drug monitoring, High risk medication use, Rheumatoid arthritis involving multiple joints (HCC) * AK LIVER ELASTOGRAPHY(Performed 07/10/2024) Performed for NAFLD (nonalcoholic fatty liver disease) * CYCLIC CITRULLINATED PEPTIDE(CCP) AB IGG(Performed 02/07/2024) * ALDOLASE(Performed 02/07/2024) * CK BLOOD(Performed 02/07/2024) * C-REACTIVE PROTEIN(Performed 02/07/2024) * ERYTHROCYTE SEDIMENTATION RATE(Performed 02/07/2024) * RHEUMATOID FACTOR BLOOD QUANTITATIVE(Performed 02/07/2024) * COMPREHENSIVE METABOLIC PANEL(Performed 02/07/2024) * CBC W AUTO DIFFERENTIAL(Performed 02/07/2024) * CBC W AUTO DIFFERENTIAL(Performed 01/17/2024) Performed for Nonalcoholic fatty liver disease * PT-INR SLH(Performed 01/17/2024) Performed for Nonalcoholic fatty liver disease * COMPREHENSIVE METABOLIC PANEL(Performed 01/17/2024) Performed for Nonalcoholic fatty liver disease * AK LIVER ELASTOGRAPHY(Performed 01/17/2024) Performed for Nonalcoholic fatty liver disease * QUANTIFERON TB-GOLD(Performed 08/16/2023) * HEPATITIS C ANTIBODY(Performed 08/16/2023) Performed for 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 arthritis (HCC), Therapeutic drug monitoring, High risk medication use * HEPATITIS B SURFACE ANTIGEN W RFLX CONFIRMATION(Performed 08/16/2023) Performed for 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 arthritis (HCC), Therapeutic drug monitoring, High risk medication use * COMPREHENSIVE METABOLIC PANEL(Performed 08/16/2023) Performed for 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 arthritis (HCC), Therapeutic drug monitoring, High risk medication use * COMPREHENSIVE METABOLIC PANEL(Performed 06/29/2023) Performed for Rheumatoid arthritis of other site with positive rheumatoid factor (HCC) * CBC W AUTO DIFFERENTIAL(Performed 06/29/2023) Performed for Rheumatoid arthritis of other site with positive rheumatoid factor (HCC) * INTERPRETATION REFLEXED(Performed 12/15/2022) Performed for Elevated LFTs * SMOOTH MUSCLE ANTIBODY W REFLEX TITER(Performed 12/15/2022) Performed for Elevated LFTs * TISSUE TRANSGLUTAMINASE AB IGA(Performed 12/15/2022) Performed for Elevated LFTs * MITOCHONDRIAL ANTIBODY SCREEN(Performed 12/15/2022) Performed for Elevated LFTs * LIPID PROFILE(Performed 12/15/2022) Performed for Elevated LFTs * IRON + TRANSFERRIN PANEL(Performed 12/15/2022) Performed for Elevated LFTs * IGM BLOOD(Performed 12/15/2022) Performed for Elevated LFTs * IGG BLOOD(Performed 12/15/2022) Performed for Elevated LFTs * IGA BLOOD(Performed 12/15/2022) Performed for Elevated LFTs * HEPATITIS C ANTIBODY W RFLX PCR(Performed 12/15/2022) Performed for Elevated LFTs * HEPATITIS B SURFACE ANTIGEN W RFLX CONFIRMATION(Performed 12/15/2022) Performed for Elevated LFTs * HEPATITIS B SURFACE ANTIBODY(Performed 12/15/2022) Performed for Elevated LFTs * HEPATITIS B CORE ANTIBODY IGM(Performed 12/15/2022) Performed for Elevated LFTs * HEMOGLOBIN A1C(Performed 12/15/2022) Performed for Elevated LFTs * FERRITIN(Performed 12/15/2022) Performed for Elevated LFTs * COMPREHENSIVE METABOLIC PANEL(Performed 12/15/2022) Performed for Elevated LFTs * CBC W/O DIFFERENTIAL(Performed 12/15/2022) Performed for Elevated LFTs * NAN BLOOD SCREEN W/REFLEX TITER(Performed 12/15/2022) Performed for Elevated LFTs * [id number]-[id number] BLOOD(Performed 12/15/2022) Performed for Elevated LFTs * TSH REFLEX FREE T4(Performed 12/15/2022) Performed for Elevated LFTs * XR FOOT RIGHT 3VW OR MORE(Performed 12/15/2022) Performed for Rheumatoid arthritis with positive rheumatoid factor, involving unspecified site (HCC) * XR FOOT LEFT 3VW OR MORE(Performed 12/15/2022) Performed for Rheumatoid arthritis with positive rheumatoid factor, involving unspecified site (HCC) * XR WRIST RIGHT 3VW OR MORE(Performed 12/15/2022) Performed for Rheumatoid arthritis with positive rheumatoid factor, involving unspecified site (HCC) * XR WRIST LEFT 3VW OR MORE(Performed 12/15/2022) Performed for Rheumatoid arthritis with positive rheumatoid factor, involving unspecified site (HCC) * XR HAND RIGHT 3VW OR MORE(Performed 12/15/2022) Performed for Rheumatoid arthritis with positive rheumatoid factor, involving unspecified site (HCC) * XR HAND LEFT 3VW OR MORE(Performed 12/15/2022) Performed for Rheumatoid arthritis with positive rheumatoid factor, involving unspecified site (HCC) * XR FOREARM LEFT 2VW OR MORE(Performed 12/15/2022) Performed for Rheumatoid arthritis with positive rheumatoid factor, involving unspecified site (HCC) * AK LIVER ELASTOGRAPHY(Performed 12/15/2022) Performed for Elevated LFTs * QUANTIFERON TB-GOLD(Performed 09/22/2022) Performed for Rheumatoid arthritis with positive rheumatoid factor, involving unspecified site (HCC), Long-term use of immunosuppressant medication * URIC ACID BLOOD(Performed 09/22/2022) Performed for Rheumatoid arthritis with positive rheumatoid factor, involving unspecified site (HCC), Long-term use of immunosuppressant medication * CBC W AUTO DIFFERENTIAL(Performed 09/22/2022) Performed for Rheumatoid arthritis with positive rheumatoid factor, involving unspecified site (HCC), Long-term use of immunosuppressant medication * COMPREHENSIVE METABOLIC PANEL(Performed 09/22/2022) Performed for Rheumatoid arthritis with positive rheumatoid factor, involving unspecified site (HCC), Long-term use of immunosuppressant medication * US ABDOMEN LIMITED(Performed 01/19/2022) 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), Encounter for therapeutic drug levelmonitoring * ERYTHROCYTE SEDIMENTATION RATE(Performed 11/01/2021) 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), Encounter for therapeutic drug monitoring * C-REACTIVE PROTEIN(Performed 11/01/2021) 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), Encounter for therapeutic drug monitoring * COMPREHENSIVE METABOLIC PANEL(Performed 11/01/2021) 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), Encounter for therapeutic drug monitoring * CBC W AUTO DIFFERENTIAL(Performed 11/01/2021) 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), Encounter for therapeutic drug monitoring * ERYTHROCYTE SEDIMENTATION RATE(Performed 08/05/2021) 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), Encounter for therapeutic drug monitoring * C-REACTIVE PROTEIN(Performed 08/05/2021) 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), Encounter for therapeutic drug monitoring * COMPREHENSIVE METABOLIC PANEL(Performed 08/05/2021) 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), Encounter for therapeutic drug monitoring * CBC W AUTO DIFFERENTIAL(Performed 08/05/2021) 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), Encounter for therapeutic drug monitoring * DEXA BONE DENSITY AXIAL SKELETON(Performed 05/13/2021) 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), Osteoporosis screening * ERYTHROCYTE SEDIMENTATION RATE(Performed 04/29/2021) 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), Encounter for therapeutic drug monitoring * C-REACTIVE PROTEIN(Performed 04/29/2021) 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), Encounter for therapeutic drug monitoring * COMPREHENSIVE METABOLIC PANEL(Performed 04/29/2021) 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), Encounter for therapeutic drug monitoring * CBC W AUTO DIFFERENTIAL(Performed 04/29/2021) 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), Encounter for therapeutic drug monitoring * ERYTHROCYTE SEDIMENTATION RATE(Performed 03/02/2021) 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), Encounter for therapeutic drug monitoring * C-REACTIVE PROTEIN(Performed 03/02/2021) 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), Encounter for therapeutic drug monitoring * COMPREHENSIVE METABOLIC PANEL(Performed 03/02/2021) 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), Encounter for therapeutic drug monitoring * CBC W AUTO DIFFERENTIAL(Performed 03/02/2021) 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), Encounter for therapeutic drug monitoring * HEPATITIS C ANTIBODY(Performed 12/11/2020) 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), Encounter for therapeutic drug monitoring * HEPATITIS B SURFACE ANTIGEN W RFLX CONFIRMATION(Performed 12/11/2020) 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), Encounter for therapeutic drug monitoring * HEPATITIS B SURFACE ANTIBODY(Performed 12/11/2020) 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), Encounter for therapeutic drug monitoring * HEPATITIS B CORE ANTIBODY TOTAL(Performed 12/11/2020) 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), Encounter for therapeutic drug monitoring * QUANTIFERON-TB GOLD PLUS 4-TUBE(Performed 12/11/2020) 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), Encounter for therapeutic drug monitoring * ERYTHROCYTE SEDIMENTATION RATE(Performed 12/11/2020) 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), Encounter for therapeutic drug monitoring * C-REACTIVE PROTEIN(Performed 12/11/2020) 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), Encounter for therapeutic drug monitoring * COMPREHENSIVE METABOLIC PANEL(Performed 12/11/2020) 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), Encounter for therapeutic drug monitoring * CBC W AUTO DIFFERENTIAL(Performed 12/11/2020) 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), Encounter for therapeutic drug monitoring * ERYTHROCYTE SEDIMENTATION RATE(Performed 09/30/2020) 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), Encounter for therapeutic drug monitoring * C-REACTIVE PROTEIN(Performed 09/30/2020) 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), Encounter for therapeutic drug monitoring * COMPREHENSIVE METABOLIC PANEL(Performed 09/30/2020) 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), Encounter for therapeutic drug monitoring * CBC W AUTO DIFFERENTIAL(Performed 09/30/2020) 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), Encounter for therapeutic drug monitoring * URINALYSIS MICROSCOPIC ONLY REFLEXED(Performed 09/01/2020) Performed for Rheumatoid arthritis with positive rheumatoid factor, involving unspecified site (HCC), Other [facility] (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, Encounter for therapeutic drug level monitoring, 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 (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), [facility] current use of 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, Encounter for therapeutic drug monitoring * URINALYSIS W/MICROSCOPIC REFLEX TO CULTURE(Performed 09/01/2020) Performed for Rheumatoid arthritis with positive rheumatoid factor, involving unspecified site (HCC), 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, Encounter for therapeutic drug level monitoring, [facility] (current) use of non-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-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 (nsaid), [facility]CC current use of 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, Encounter for therapeutic drug monitoring * C-REACTIVE PROTEIN(Performed 09/01/2020) Performed for Rheumatoid arthritis with positive rheumatoid factor, involving unspecified site (HCC), 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, Encounter for therapeutic drug level monitoring, [facility] (current) use of non-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-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 (nsaid), 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, Encounter for therapeutic drug monitoring * ERYTHROCYTE SEDIMENTATION RATE(Performed 09/01/2020) Performed for Rheumatoid arthritis with positive rheumatoid factor, involving unspecified site (HCC), 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, Encounter for therapeutic drug level monitoring, 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 (nsaid), [facility] current use of 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, Encounter for therapeutic drug monitoring * COMPREHENSIVE METABOLIC PANEL(Performed 09/01/2020) Performed for Rheumatoid arthritis with positive rheumatoid factor, involving unspecified site (HCC), 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, Encounter for therapeutic drug level monitoring, 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 (nsaid), [facility] current use of 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, Encounter for therapeutic drug monitoring * CBC W AUTO DIFFERENTIAL(Performed 09/01/2020) Performed for Rheumatoid arthritis with positive rheumatoid factor, involving unspecified site (HCC), Other [facility] (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, Encounter for therapeutic drug level monitoring, [facility] (current) use of non-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-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 (nsaid), [facility] current use of 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, Encounter for therapeutic drug monitoring * URINALYSIS MICROSCOPIC ONLY REFLEXED(Performed 05/06/2020) Performed for Rheumatoid arthritis with positive rheumatoid factor, involving unspecified site (HCC), 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, Encounter for therapeutic drug level monitoring, 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 (nsaid), [facility] current use of 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, Encounter for therapeutic drug monitoring * URINALYSIS W/MICROSCOPIC REFLEX TO CULTURE(Performed 05/06/2020) Performed for Rheumatoid arthritis with positive rheumatoid factor, involving unspecified site (HCC), 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, Encounter for therapeutic drug level monitoring, 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 (nsaid), 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, Encounter for therapeutic drug monitoring * C-REACTIVE PROTEIN(Performed 05/06/2020) Performed for Rheumatoid arthritis with positive rheumatoid factor, involving unspecified site (HCC), Other [facility] (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, Encounter for therapeutic drug level monitoring, 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 (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), 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, Encounter for therapeutic drug monitoring * ERYTHROCYTE SEDIMENTATION RATE(Performed 05/06/2020) Performed for Rheumatoid arthritis with positive rheumatoid factor, involving unspecified site (HCC), Other [facility] (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, Encounter for therapeutic drug level monitoring, [facility] (current) use of non-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-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 (nsaid), 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, Encounter for therapeutic drug monitoring * COMPREHENSIVE METABOLIC PANEL(Performed 05/06/2020) Performed for Rheumatoid arthritis with positive rheumatoid factor, involving unspecified site (HCC), 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, Encounter for therapeutic drug level monitoring, 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 (nsaid), [facility] current use of 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, Encounter for therapeutic drug monitoring * CBC W AUTO DIFFERENTIAL(Performed 05/06/2020) Performed for Rheumatoid arthritis with positive rheumatoid factor, involving unspecified site (HCC), 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, Encounter for therapeutic drug level monitoring, [facility] (current) use of non-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-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 (nsaid), 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, Encounter for therapeutic drug monitoring * CULTURE URINE COMPREHENSIVE(Performed 05/06/2020) Performed for Rheumatoid arthritis with positive rheumatoid factor, involving unspecified site (HCC), 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, Encounter for therapeutic drug level monitoring, [facility] (current) use of non-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-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 (nsaid), [facility] current use of 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, Encounter for therapeutic drug monitoring * URINALYSIS MICROSCOPIC ONLY REFLEXED(Performed 10/18/2019) Performed for Rheumatoid arthritis with positive rheumatoid factor, involving unspecified site (HCC), 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, Encounter for therapeutic drug level monitoring, Essential hypertension, Type 2 diabetes mellitus without complication, without long-term current use of insulin ([facility]) * URINALYSIS W/MICROSCOPIC REFLEX TO CULTURE(Performed 10/18/2019) Performed for Rheumatoid arthritis with positive rheumatoid factor, involving unspecified site (HCC), Other [facility] (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, Encounter for therapeutic drug level monitoring, Essential hypertension, Type 2 diabetes mellitus without complication, without long-term current use of insulin ([facility]) * ERYTHROCYTE SEDIMENTATION RATE(Performed 10/18/2019) Performed for Rheumatoid arthritis with positive rheumatoid factor, involving unspecified site (HCC), 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, Encounter for therapeutic drug level monitoring, Essential hypertension, Type 2 diabetes mellitus without complication, without long-term current use of insulin ([facility]) * C-REACTIVE PROTEIN(Performed 10/18/2019) Performed for Rheumatoid arthritis with positive rheumatoid factor, involving unspecified site (HCC), Other mcc (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, Encounter for therapeutic drug level monitoring, Essential hypertension, Type 2 diabetes mellitus without complication, without long-term current use of insulin ([facility]) * COMPREHENSIVE METABOLIC PANEL(Performed 10/18/2019) Performed for Rheumatoid arthritis with positive rheumatoid factor, involving unspecified site (HCC), 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, Encounter for therapeutic drug level monitoring, Essential hypertension, Type 2 diabetes mellitus without complication, without long-term current use of insulin ([facility]) * CBC W AUTO DIFFERENTIAL(Performed 10/18/2019) Performed for Rheumatoid arthritis with positive rheumatoid factor, involving unspecified site (HCC), Other mcc (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, Encounter for therapeutic drug level monitoring, Essential hypertension, Type 2 diabetes mellitus without complication, without long-term current use of insulin ([facility]) * XR HAND LEFT 2VW(Performed 04/17/2019) Performed for Rheumatoid arthritis with positive rheumatoid factor, involving unspecified site (HCC), 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, Encounter for therapeutic drug level monitoring, Essential hypertension, Type 2 diabetes mellitus without complication, without long-term current use of insulin ([facility]) * XR HAND RIGHT 2VW(Performed 04/17/2019) Performed for Rheumatoid arthritis with positive rheumatoid factor, involving unspecified site (HCC), Other mcc (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, Encounter for therapeutic drug level monitoring, Essential hypertension, Type 2 diabetes mellitus without complication, without long-term current use of insulin ([facility]) * URINALYSIS MICROSCOPIC ONLY REFLEXED(Performed 04/10/2019) Performed for Rheumatoid arthritis with positive rheumatoid factor, involving unspecified site (HCC), 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, Encounter for therapeutic drug level monitoring, Essential hypertension, Type 2 diabetes mellitus without complication, without long-term current use of insulin ([facility]) * URINALYSIS W/MICROSCOPIC REFLEX TO CULTURE(Performed 04/10/2019) Performed for Rheumatoid arthritis with positive rheumatoid factor, involving unspecified site (HCC), Other mcc (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, Encounter for therapeutic drug level monitoring, Essential hypertension, Type 2 diabetes mellitus without complication, without long-term current use of insulin ([facility]) * ERYTHROCYTE SEDIMENTATION RATE(Performed 04/10/2019) Performed for Rheumatoid arthritis with positive rheumatoid factor, involving unspecified site (HCC), Other mcc (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, Encounter for therapeutic drug level monitoring, Essential hypertension, Type 2 diabetes mellitus without complication, without long-term current use of insulin ([facility]) * C-REACTIVE PROTEIN(Performed 04/10/2019) Performed for Rheumatoid arthritis with positive rheumatoid factor, involving unspecified site (HCC), 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, Encounter for therapeutic drug level monitoring, Essential hypertension, Type 2 diabetes mellitus without complication, without long-term current use of insulin ([facility]) * COMPREHENSIVE METABOLIC PANEL(Performed 04/10/2019) Performed for Rheumatoid arthritis with positive rheumatoid factor, involving unspecified site ([facility]), 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, Encounter for therapeutic drug level monitoring, Essential hypertension, Type 2 diabetes mellitus without complication, without long-term current use of insulin ([facility]) * CBC W AUTO DIFFERENTIAL(Performed 04/10/2019) Performed for Rheumatoid arthritis with positive rheumatoid factor, involving unspecified site ([facility]), Other mcc (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, Encounter for therapeutic drug level monitoring, Essential hypertension, Type 2 diabetes mellitus without complication, without long-term current use of insulin ([facility]) * CULTURE URINE COMPREHENSIVE(Performed 04/10/2019) Performed for Rheumatoid arthritis with positive rheumatoid factor, involving unspecified site ([facility]), 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, Encounter for therapeutic drug level monitoring, Essential hypertension, Type 2 diabetes mellitus without complication, without long-term current use of insulin ([facility]) * URINALYSIS MICROSCOPIC ONLY REFLEXED(Performed 11/06/2018) Performed for Rheumatoid arthritis with positive rheumatoid factor, involving unspecified site ([facility]), Encounter for therapeutic drug level monitoring, Need for influenza vaccination, Arthralgia of multiple joints * URINALYSIS W/MICROSCOPIC REFLEX TO CULTURE(Performed 11/06/2018) Performed for Rheumatoid arthritis with positive rheumatoid factor, involving unspecified site ([facility]), Encounter for therapeutic drug level monitoring, Need for influenza vaccination, Arthralgia of multiple joints * ERYTHROCYTE SEDIMENTATION RATE(Performed 11/06/2018) Performed for Rheumatoid arthritis with positive rheumatoid factor, involving unspecified site ([facility]), Encounter for therapeutic drug level monitoring, Need for influenza vaccination, Arthralgia of multiple joints * C-REACTIVE PROTEIN(Performed 11/06/2018) Performed for Rheumatoid arthritis with positive rheumatoid factor, involving unspecified site ([facility]), Encounter for therapeutic drug level monitoring, Need for influenza vaccination, Arthralgia of multiple joints * COMPREHENSIVE METABOLIC PANEL(Performed 11/06/2018) Performed for Rheumatoid arthritis with positive rheumatoid factor, involving unspecified site ([facility]), Encounter for therapeutic drug level monitoring, Need for influenza vaccination, Arthralgia of multiple joints * CBC W AUTO DIFFERENTIAL(Performed 11/06/2018) Performed for Rheumatoid arthritis with positive rheumatoid factor, involving unspecified site ([facility]), Encounter for therapeutic drug level monitoring, Need for influenza vaccination, Arthralgia of multiple joints * URINALYSIS MICROSCOPIC ONLY REFLEXED(Performed 09/05/2018) Performed for Rheumatoid arthritis with positive rheumatoid factor, involving unspecified site (HCC), Encounter for therapeutic drug level monitoring, Need for influenza vaccination, Arthralgia of multiple joints * URINALYSIS W/MICROSCOPIC REFLEX TO CULTURE(Performed 09/05/2018) Performed for Rheumatoid arthritis with positive rheumatoid factor, involving unspecified site (HCC), Encounter for therapeutic drug level monitoring, Need for influenza vaccination, Arthralgia of multiple joints * ERYTHROCYTE SEDIMENTATION RATE(Performed 09/05/2018) Performed for Rheumatoid arthritis with positive rheumatoid factor, involving unspecified site (HCC), Encounter for therapeutic drug level monitoring, Need for influenza vaccination, Arthralgia of multiple joints * C-REACTIVE PROTEIN(Performed 09/05/2018) Performed for Rheumatoid arthritis with positive rheumatoid factor, involving unspecified site (HCC), Encounter for therapeutic drug level monitoring, Need for influenza vaccination, Arthralgia of multiple joints * COMPREHENSIVE METABOLIC PANEL(Performed 09/05/2018) Performed for Rheumatoid arthritis with positive rheumatoid factor, involving unspecified site (HCC), Encounter for therapeutic drug level monitoring, Need for influenza vaccination, Arthralgia of multiple joints * CBC W AUTO DIFFERENTIAL(Performed 09/05/2018) Performed for Rheumatoid arthritis with positive rheumatoid factor, involving unspecified site (HCC), Encounter for therapeutic drug level monitoring, Need for influenza vaccination, Arthralgia of multiple joints * URINALYSIS MICROSCOPIC ONLY REFLEXED(Performed 06/29/2018) * URINALYSIS W/MICROSCOPIC REFLEX TO CULTURE(Performed 06/29/2018) * C-REACTIVE PROTEIN(Performed 06/29/2018) * ERYTHROCYTE SEDIMENTATION RATE(Performed 06/29/2018) * COMPREHENSIVE METABOLIC PANEL(Performed 06/29/2018) * CBC W AUTO DIFFERENTIAL(Performed 06/29/2018) * CULTURE URINE COMPREHENSIVE(Performed 06/29/2018) * URINALYSIS MICROSCOPIC ONLY REFLEXED(Performed 03/12/2018) Performed for 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 arthritis (HCC), Arthralgia of multiple joints, 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, Encounter for therapeutic drug monitoring * URINALYSIS W/MICROSCOPIC REFLEX TO CULTURE(Performed 03/12/2018) Performed for 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 arthritis (HCC), Arthralgia of multiple joints, 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, Encounter for therapeutic drug monitoring * CBC W AUTO DIFFERENTIAL(Performed 03/12/2018) Performed for 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 arthritis (HCC), Arthralgia of multiple joints, MCC current use of 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, Encounter for therapeutic drug monitoring * COMPREHENSIVE METABOLIC PANEL(Performed 03/12/2018) Performed for 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 arthritis (HCC), Arthralgia of multiple joints, 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, Encounter for therapeutic drug monitoring * C-REACTIVE PROTEIN(Performed 03/12/2018) Performed for 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 arthritis (HCC), Arthralgia of multiple joints, MCC current use of 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, Encounter for therapeutic drug monitoring * ERYTHROCYTE SEDIMENTATION RATE(Performed 03/12/2018) Performed for 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 arthritis (HCC), Arthralgia of multiple joints, MCC current use of 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, Encounter for therapeutic drug monitoring * CULTURE URINE COMPREHENSIVE(Performed 03/12/2018) Performed for 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 arthritis (HCC), Arthralgia of multiple joints, 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, Encounter for therapeutic drug monitoring * URINALYSIS MICROSCOPIC ONLY REFLEXED(Performed 12/27/2017) * URINALYSIS W/MICROSCOPIC REFLEX TO CULTURE(Performed 12/27/2017) * C-REACTIVE PROTEIN(Performed 12/27/2017) * ERYTHROCYTE SEDIMENTATION RATE(Performed 12/27/2017) * CBC W AUTO DIFFERENTIAL(Performed 12/27/2017) * COMPREHENSIVE METABOLIC PANEL(Performed 12/27/2017) * CULTURE URINE COMPREHENSIVE(Performed 12/27/2017) * C-REACTIVE PROTEIN(Performed 11/02/2017) * CBC W AUTO DIFFERENTIAL(Performed 11/02/2017) * URINALYSIS W/MICROSCOPIC REFLEX TO CULTURE(Performed 11/02/2017) * COMPREHENSIVE METABOLIC PANEL(Performed 11/02/2017) * URINALYSIS MICROSCOPIC ONLY REFLEXED(Performed 11/02/2017) * ERYTHROCYTE SEDIMENTATION RATE(Performed 11/02/2017) * URINALYSIS MICROSCOPIC ONLY REFLEXED(Performed 09/19/2017) * URINALYSIS W/MICROSCOPIC REFLEX TO CULTURE(Performed 09/19/2017) * CBC W AUTO DIFFERENTIAL(Performed 09/19/2017) * COMPREHENSIVE METABOLIC PANEL(Performed 09/19/2017) * C-REACTIVE PROTEIN(Performed 09/19/2017) * ERYTHROCYTE SEDIMENTATION RATE(Performed 09/19/2017) * COMPREHENSIVE METABOLIC PANEL(Performed 08/08/2017) * URINALYSIS W/MICROSCOPIC REFLEX TO CULTURE(Performed 08/08/2017) * ERYTHROCYTE SEDIMENTATION RATE(Performed 08/08/2017) * CBC W AUTO DIFFERENTIAL(Performed 08/08/2017) * C-REACTIVE PROTEIN(Performed 08/08/2017) * URINALYSIS W/MICROSCOPIC REFLEX TO CULTURE(Performed 06/30/2017) * ERYTHROCYTE SEDIMENTATION RATE(Performed 06/30/2017) * CBC W AUTO DIFFERENTIAL(Performed 06/30/2017) * C-REACTIVE PROTEIN(Performed 06/30/2017) * COMPREHENSIVE METABOLIC PANEL(Performed 06/30/2017) * URINALYSIS W/MICROSCOPIC REFLEX TO CULTURE(Performed 04/26/2017) * ERYTHROCYTE SEDIMENTATION RATE(Performed 04/26/2017) * C-REACTIVE PROTEIN(Performed 04/26/2017) * COMPREHENSIVE METABOLIC PANEL(Performed 04/26/2017) * CBC W AUTO DIFFERENTIAL(Performed 04/26/2017) * ERYTHROCYTE SEDIMENTATION RATE(Performed 03/24/2017) * COMPREHENSIVE METABOLIC PANEL(Performed 03/24/2017) * URINALYSIS W/MICROSCOPIC REFLEX TO CULTURE(Performed 03/24/2017) * CBC W AUTO DIFFERENTIAL(Performed 03/24/2017) * C-REACTIVE PROTEIN(Performed 03/24/2017) * CBC W AUTO DIFFERENTIAL(Performed 02/27/2017) * C-REACTIVE PROTEIN(Performed 02/27/2017) * ERYTHROCYTE SEDIMENTATION RATE(Performed 02/27/2017) * COMPREHENSIVE METABOLIC PANEL(Performed 02/27/2017) * URINALYSIS W/MICROSCOPIC REFLEX TO CULTURE(Performed 02/27/2017) * ERYTHROCYTE SEDIMENTATION RATE(Performed 01/26/2017) * CBC W AUTO DIFFERENTIAL(Performed 01/26/2017) * C-REACTIVE PROTEIN(Performed 01/26/2017) * URINALYSIS W/MICROSCOPIC REFLEX TO CULTURE(Performed 01/26/2017) * COMPREHENSIVE METABOLIC PANEL(Performed 01/26/2017) * URIC ACID BLOOD(Performed 01/26/2017) * CYCLIC CITRULLINATED PEPTIDE(CCP) AB IGG(Performed 08/15/2016) * NAN BLOOD SCREEN W/REFLEX TITER(Performed 08/15/2016) * HEPATITIS B SURFACE ANTIBODY(Performed 08/15/2016) * HEPATITIS B CORE ANTIBODY TOTAL(Performed 08/15/2016) * HEPATITIS C AB W/RFLX TO HCV RNA QN PCR(Performed 08/15/2016) * SS-B (SJOGREN'S) ANTIBODY(Performed 08/15/2016) * SS-A (SJOGREN'S) ANTIBODY(Performed 08/15/2016) * VITAMIN D 25-HYDROXY(Performed 08/15/2016) * C-REACTIVE PROTEIN(Performed 08/15/2016) * ERYTHROCYTE SEDIMENTATION RATE(Performed 08/15/2016) * CBC W AUTO DIFFERENTIAL(Performed 08/15/2016) * COMPREHENSIVE METABOLIC PANEL(Performed 08/15/2016) * URINALYSIS W/MICROSCOPIC REFLEX TO CULTURE(Performed 08/15/2016) * RHEUMATOID ARTHRITIS PANEL(Performed 08/15/2016) * XR HAND RIGHT 3VW OR MORE(Performed 2016) * XR HAND LEFT 3VW OR MORE(Performed 2016) Results * (ABNORMAL) URINALYSIS W/MICROSCOPIC REFLEX TO CULTURE (08/27/2024 4:00 PM J2EE ENGINEER) Only the most recent of19 resultswithin the time period is included. Color UA Straw Straw, Yellow 08/27/2024 4:45 PM [facility] Clarity UA Clear Clear 08/27/2024 4:45 PM [facility] Specific [place] UA 1.002(L) 1.005 - 1.030 08/27/2024 4:45 PM [facility] pH UA 6.0 5.0 - 8.0 pH 08/27/2024 4:45 PM [facility] Protein UA Negative Negative 08/27/2024 4:45 PM [facility] Glucose UA 3+(A) Negative 08/27/2024 4:45 PM [facility] Ketone UA Negative Negative 08/27/2024 4:45 PM [facility] Bilirubin UA Negative Negative 08/27/2024 4:45 PM [facility] Blood UA Negative Negative 08/27/2024 4:45 PM [facility] Nitrite UA Negative Negative 08/27/2024 4:45 PM [facility] Leukocyte Esterase Negative Negative 08/27/2024 4:45 PM [facility] Urobilinogen UA Negative Negative mg/dL 08/27/2024 4:45 PM [facility] RBC UA None Seen None Seen, 0-2, 3-5 /HPF 08/27/2024 4:45 PM [facility] WBC UA 0-5 None Seen, 0-5 /HPF 08/27/2024 4:45 PM [facility] Bacteria UA Trace(A) None /HPF 08/27/2024 4:45 PM [facility] Squamous Epithelial Cells UA 0-2 None Seen, 0-2, 3-5 /HPF 08/27/2024 4:45 PM J2EE ENGINEER [facility] Urine URINE SPECIMEN OBTAINED BY CLEAN CATCH PROCEDURE / Unknown Collection / Unknown 08/27/2024 4:00 PM J2EE ENGINEER 08/27/2024 4:29 PM J2EE ENGINEER Narrative [facility] - 08/27/2024 4:45 PM J2EE ENGINEER Culture Not Indicated Lonnie Tai MD LAB - URINALYSIS ORDERABLES Performing Organization Address City/[facility]/ZIP Co de Phone Number [address] [address], [facility] [phone] * PROTEIN CREATININE RATIO URINE RANDOM PNL (08/27/2024 4:00 PM J2EE ENGINEER) Pathologist [facility] Protein Urine <7 Not Established mg/dL 08/27/2024 5:18 PM J2EE ENGINEER [facility] Creatinine Urine 26.51 Not Established mg/dL 08/27/2024 5:18 PM [facility] Protein/Creatinin e Ratio Urine 08/27/2024 5:18 PM [facility] Comment:Unable to calculate ratio because the analyte concentration is outside the instrument measuring range. Urine URINE SPECIMEN OBTAINED BY CLEAN CATCH PROCEDURE / Unknown Collection / Unknown 08/27/2024 4:00 PM J2EE ENGINEER 08/27/2024 4:29 PM J2EE ENGINEER Lonnie Tai MD LAB - URINE CHEM ISTRY ORDERABLES Performing Organization Address [facility]/ZIP Co de Phone Number [address] [address], [place] [phone] * QUANTIFERON-TB GOLD PLUS 4-TUBE (08/27/2024 3:52 PM J2EE ENGINEER) Only the most recent of2 resultswithin the time period is included. QuantiFERON Mitogen Minus NIL 9.96 IU/mL 08/29/2024 8:21 PM J2EE ENGINEER [facility] ([facility]) QuantiFERON Nil Value 0.04 IU/mL 08/29/2024 8:21 PM J2EE ENGINEER [facility] ([facility]) QuantiFERON Plus TB1 Minus NIL 0.01 <=0.34 IU/mL 08/29/2024 8:21 PM J2EE ENGINEER [facility] ([facility]) QuantiFERON Plus TB2 Minus NIL 0.00 <=0.34 IU/mL 08/29/2024 8:21 PM J2EE ENGINEER [facility] ([facility]) QuantiFERON-TB Gold Plus Negative Negative 08/29/2024 8:21 PM J2EE ENGINEER [facility] ([facility]) Comment: INTERPRETIVE INFORMATION:Quantiferon TB Gold Plus Interferon [...] Mycobacterium tuberculosis Infection -- [place], 2010 (http://www.cdc.gov/mmwr/preview/mmwrhtml/zp5875z4.htm), for more information concerning test performance in low-prevalence populations and use in occupational screening. Performed By: [facility] [address] [place] [address] Smoke Jumper: Kleber Choudhary MD, PhD CLIA Number: [id number] Blood BLOOD SPECIMEN / Unknown Lab Venipuncture / Unknown 08/27/2024 3:52 PM J2EE ENGINEER 08/27/2024 4:38 PM J2EE ENGINEER Lonnie Tai MD LAB - CHEMISTRY ORDERABLES [facility]) [address] [place] [address], [facility] * RHEUMATOID FACTOR BLOOD QUANTITATIVE (08/27/2024 3:52 PM J2EE ENGINEER) Only the most recent of2 resultswithin the time period is included. Rheumatoid Factor <15 <30 IU/mL 08/27/2024 5:01 PM J2EE ENGINEER [facility] Rheumatoid Factor Screen Negative Negative 08/27/2024 5:01 PM J2EE ENGINEER [facility] Blood BLOOD SPECIMEN / Unknown Lab Venipuncture / Unknown 08/27/2024 3:52 PM J2EE ENGINEER 08/27/2024 4:29 PM J2EE ENGINEER Lonnie Tai MD LAB - CHEMISTRY ORDERABLES [address] [address], [facility] [phone] * C-REACTIVE PROTEIN (08/27/2024 3:52 PM J2EE ENGINEER) Only the most recent of26 resultswithin the time period is included. Pathologist [facility] C-Reactive Protein <0.5 <=0.5 mg/dL 08/27/2024 5:21 PM J2EE ENGINEER [facility] Blood BLOOD SPECIMEN / Unknown Lab Venipuncture / Unknown 08/27/2024 3:52 PM J2EE ENGINEER 08/27/2024 4:45 PM J2EE ENGINEER Lonnie Tai MD LAB - CHEMISTRY ORDERABLES Performing Organization Address City/[facility]/ZIP Co de Phone Number [address] [address], [facility] [phone] * ALDOLASE (08/27/2024 3:52 PM J2EE ENGINEER) Only the most recent of2 resultswithin the time period is included. Aldolase 3.0 1.2 - 7.6 U/L 08/29/2024 8:19 AM J2EE ENGINEER [facility] ([facility]) Comment: REFERENCE INTERVAL: Aldolase Access complete set of age- and/or gender-specific reference intervals for this test in the [facility] Test Directory ([email or web address]). Performed By: [employer] [place] [address] Smoke Jumper: Kleber Choudhary MD, PhD CLIA Number: [id number] Blood BLOOD SPECIMEN / Unknown Lab Venipuncture / Unknown 08/27/2024 3:52 PM J2EE ENGINEER 08/27/2024 4:29 PM J2EE ENGINEER Lonnie Tai MD LAB - CHEMISTRY ORDERABLES [facility] ([facility]) [address] [place], [place] [address] * (ABNORMAL) CYCLIC CITRULLINATED PEPTIDE(CCP) AB IGG (08/27/2024 3:52 PM J2EE ENGINEER) Only the most recent of3 resultswithin the time period is included. Pathologist [facility] CCP Antibody IgG 15.4(H) <5.0 U/mL 08/27/2024 5:26 PM J2EE ENGINEER [facility] Blood BLOOD SPECIMEN / Unknown Lab Venipuncture / Unknown 08/27/2024 3:52 PM J2EE ENGINEER 08/27/2024 4:29 PM J2EE ENGINEER Lonnie Tai MD LAB - CHEMISTRY ORDERABLES Performing Organization Address City/[facility]/ZIP Co de Phone Number [address] [address], [facility] [phone] * ERYTHROCYTE SEDIMENTATION RATE (08/27/2024 3:52 PM J2EE ENGINEER) Only the most recent of26 resultswithin the time period is included. Pathologist [facility] Erythrocyte Sedimentation Rate Westergren <1 0 - 30 MM/HR 08/27/2024 6:25 PM J2EE ENGINEER [facility] Blood BLOOD SPECIMEN / Unknown Lab Venipuncture / Unknown 08/27/2024 3:52 PM J2EE ENGINEER 08/27/2024 4:42 PM J2EE ENGINEER Lonnie Tai MD LAB - HEMATOLOGY ORDERABLES Performing Organization Address City/[facility]/ZIP Co de Phone Number [address] [address], [facility] [phone] * (ABNORMAL) CBC WITH DIFFERENTIAL (08/27/2024 3:52 PM [facility]) Only the most recent of29 resultswithin the time period is included. WBC 11.8(H) 4.0 - 10.7 x10E9/L 08/27/2024 5:13 PM [facility] RBC Count 4.04 3.90 - 5.20 x10E12/L 08/27/2024 5:13 PM [facility] Hemoglobin 8.4(L) 11.9 - 15.8 g/dL 08/27/2024 5:13 PM [facility] Hematocrit 26.5(L) 34.8 - 46.1 % 08/27/2024 5:13 PM [facility] MCV 65.6(L) 80.0 - 98.0 fL 08/27/2024 5:13 PM [facility] MCH 20.8(L) 26.7 - 33.6 pg 08/27/2024 5:13 PM [facility] MCHC 31.7 31.7 - 36.3 g/dL 08/27/2024 5:13 PM [facility] RDW-CV 18.0(H) 11.3 - 14.8 % 08/27/2024 5:13 PM [facility] Platelet Count 351 150 - 420 x10E9/L 08/27/2024 5:13 PM [facility] MPV 11.3 7.8 - 11.4 fL 08/27/2024 5:13 PM [facility] Neutrophil % 71.1 41.0 - 74.0 % 08/27/2024 5:13 PM [facility] Lymphocyte % 19.0 17.0 - 47.0 % 08/27/2024 5:13 PM [facility] Monocyte % 6.8 3.0 - 11.0 % 08/27/2024 5:13 PM [facility] Eosinophil % 1.1 0.0 - 7.0 % 08/27/2024 5:13 PM [facility] Basophil % 1.3 0.0 - 1.6 % 08/27/2024 5:13 PM [facility] Immature Granulocytes % 0.7 0.0 - 1.0 % 08/27/2024 5:13 PM [facility] Neutrophil Absolute 8.41(H) 1.60 - 7.50 x10E9/L 08/27/2024 5:13 PM [facility] Lymphocyte Absolute 2.25 1.00 - 4.40 x10E9/L 08/27/2024 5:13 PM [facility] Monocyte Absolute 0.81 0.15 - 1.00 x10E9/L 08/27/2024 5:13 PM [facility] Eosinophil Absolute 0.13 0.00 - 0.60 x10E9/L 08/27/2024 5:13 PM [facility] Basophil Absolute 0.15(H) 0.00 - 0.13 x10E9/L 08/27/2024 5:13 PM [facility] Blood BLOOD SPECIMEN / Unknown Lab Venipuncture / Unknown 08/27/2024 3:52 PM J2EE ENGINEER 08/27/2024 4:42 PM J2EE ENGINEER Lonnie Tai MD LAB - HEMATOLOGY ORDERABLES [facility] [address] [place] [phone], [facility] [phone] * (ABNORMAL) COMPREHENSIVE METABOLIC PANEL (08/27/2024 3:52 PM J2EE ENGINEER) Only the most recent of31 resultswithin the time period is included. BUN 8 7 - 26 mg/dL 08/27/2024 5:20 PM [facility] [facility] Creatinine 1.40(H) 0.56 - 0.96 mg/dL 08/27/2024 5:20 PM [facility] Sodium 129(L) 136 - 145 mmol/L 08/27/2024 5:20 PM [facility] Potassium 4.0 3.5 - 4.5 mmol/L 08/27/2024 5:20 PM [facility] Chloride 98 98 - 107 mmol/L 08/27/2024 5:20 PM [facility] CO2 18(L) 22 - 29 mmol/L 08/27/2024 5:20 PM [facility] Glucose 286(H) 70 - 99 mg/dL 08/27/2024 5:20 PM [facility] Calcium 9.0 8.4 - 10.2 mg/dL 08/27/2024 5:20 PM [facility] Protein Total 6.7 6.0 - 8.3 g/dL 08/27/2024 5:20 PM [facility] Albumin 4.3 3.4 - 5.0 g/dL 08/27/2024 5:20 PM [facility] Bilirubin Total 0.3 0.2 - 1.2 mg/dL 08/27/2024 5:20 PM [facility] Alkaline Phosphatase 115 40 - 150 U/L 08/27/2024 5:20 PM [facility] ALT 13 5 - 55 U/L 08/27/2024 5:20 PM [facility] AST 14 5 - 34 U/L 08/27/2024 5:20 PM [facility] Anion Gap 13 6 - 16 08/27/2024 5:20 PM [facility] BUN/Creatinine Ratio 6(L) 7 - 23 08/27/2024 5:20 PM [facility] Osmolality Calculated 277 275 - 295 mOsm/kg 08/27/2024 5:20 PM [facility] Albumin/Globulin Ratio 1.8 1.1 - 2.3 08/27/2024 5:20 PM [facility] eGFR by CKD-EPI 40(L) >=90 mL/min/1.7 3 m2 08/27/2024 5:20 PM [facility] Blood BLOOD SPECIMEN / Unknown Lab Venipuncture / Unknown 08/27/2024 3:52 PM J2EE ENGINEER 08/27/2024 4:45 PM J2EE ENGINEER Lonnie Tai MD LAB - CHEMISTRY ORDERABLES [facility] [address] [place] [address], [facility] [phone] * HEPATITIS B SURFACE ANTIBODY (08/27/2024 3:52 PM J2EE ENGINEER) Only the most recent of4 resultswithin the time period is included. Hepatitis B Virus Surface Antibody Non-react ana Non-react ana 08/27/2024 5:26 PM J2EE ENGINEER [facility] Comment: < 8 mIU/mL Hepatitis B surface Antibody (HBsAb). Nonreactive for HBsAb - individual is considered not immune to Hepatitis B Virus infection. Hepatitis B Surface Antibody Quantitative 0.0 <8.0 mIU/mL 08/27/2024 5:26 PM J2EE ENGINEER [facility] Comment: Hepatitis B Surface Antibody Numeric Result Interpretation: ? Nonreactive: ?<8.0 mIU/mL ? Indeterminate: ??8.0 - 12.0 mIU/mL ? Reactive: ?>12.0 mIU/mL ? Blood BLOOD SPECIMEN / Unknown Lab Venipuncture / Unknown 08/27/2024 3:52 PM J2EE ENGINEER 08/27/2024 4:29 PM J2EE ENGINEER Lonnie Tai MD LAB - CHEMISTRY ORDERABLES Performing Organization Address City/[facility]/ZIP Co de Phone Number [address] [address], [employer] [phone] * HEPATITIS B CORE ANTIBODY TOTAL (08/27/2024 3:52 PM J2EE ENGINEER) Only the most recent of3 resultswithin the time period is included. Pathologist [facility] HBc Antibody Total Non-reacti ve Non-reacti ve 08/27/2024 5:26 PM J2EE ENGINEER [facility] Blood BLOOD SPECIMEN / Unknown Lab Venipuncture / Unknown 08/27/2024 3:52 PM J2EE ENGINEER 08/27/2024 4:29 PM J2EE ENGINEER Lonnie Tai MD LAB - CHEMISTRY ORDERABLES Performing Organization Address City/[facility]/ZIP Co de Phone Number [address] [address], [employer] [phone] * HEPATITIS B SURFACE ANTIGEN W RFLX CONFIRMATION (08/27/2024 3:52 PM J2EE ENGINEER) Only the most recent of4 resultswithin the time period is included. Hepatitis B Virus Surface Antigen Non-reacti ve Non-reacti ve 08/27/2024 5:26 PM J2EE ENGINEER [facility] Blood BLOOD SPECIMEN / Unknown Lab Venipuncture / Unknown 08/27/2024 3:52 PM J2EE ENGINEER 08/27/2024 4:29 PM J2EE ENGINEER Lonnie Tai MD LAB - CHEMISTRY ORDERABLES Performing Organization Address City/[facility]/ZIP Co de Phone Number [address] [address], [facility] [phone] * CK BLOOD (08/27/2024 3:52 PM J2EE ENGINEER) Only the most recent of2 resultswithin the time period is included. Pathologist [facility] CK Total 78 30 - 200 U/L 08/27/2024 5:20 PM J2EE ENGINEER [facility] Blood BLOOD SPECIMEN / Unknown Lab Venipuncture / Unknown 08/27/2024 3:52 PM J2EE ENGINEER 08/27/2024 4:45 PM J2EE ENGINEER Lonnie Tai MD LAB - CHEMISTRY ORDERABLES Performing Organization Address City/[facility]/ZIP Co de Phone Number [address] [address], [place] [phone] * XR Chest 2Vw (08/27/2024 3:35 PM J2EE ENGINEER) Anatomical Region Laterality Modality Chest Digital Radiogra phy 08/27/2024 3:38 PM J2EE ENGINEER Impressions 08/27/2024 3:39 PM J2EE ENGINEER IMPRESSION: No acute cardiopulmonary abnormalities. > Interpreting Provider: Mattie Nobles MD on 08/27/2024 3:39 PM Narrative 08/27/2024 3:39 PM J2EE ENGINEER PROCEDURE: ??XR CHEST 2VW DATE/TIME OF EXAM: [...] Tai MD DIAGNOSTIC IMAGI NG ORDERABLES * AK LIVER ELASTOGRAPHY (07/10/2024 2:37 PM CDT) Narrative Rubi Phan RN - 07/10/2024 2:37 PM CDT Rubi Phan RN ? 07/10/2024 ??2:53 PM Diagnosis: NAFLD (nonalcoholic fatty liver disease) RN verified patient NPO for prior 3 hours. Procedure explained. Date of Exam: 07/10/2024 Liver Stiffness: (LSM, kPa) median: ??7.9 IQR/Median% (ideally < 30%): ??6% CAP (controlled attenuation parameter): ??300 Technical Difficulty: None Ordering Provider: Thalia Dunlap MD Phone Fax Thalia Dunlap MD PROCEDURE/MINOR SURG ICAL ORDERABLES * PT-INR [facility] (01/17/2024 3:24 PM CDT) PT 13.8 12.1 - 14.8 Seconds 01/17/2024 4:49 PM CDT [facility] INR 1.1 See Comment 01/17/2024 4:49 PM CDT [facility] Comment:The suggested therap eutic range for standard coumadin (warfarin) therapy is an INR of 2.0-3.0. For high-risk patients (Mechanical Mitral Valve Prosthesis, etc.), the suggested prophylactic therapeutic range is an INR of 2.5-3.5. Blood BLOOD SPECIMEN / Unknown Lab Venipuncture / Unknown 01/17/2024 3:24 PM CDT 01/17/2024 4:26 PM CDT Thalia Dunlap MD LAB - COAGULATION OR DERABLES [facility] [address] [place] [address], [facility] [phone] * PROC FIBROSCAN (01/17/2024 1:16 PM CDT) Narrative Rubi Phan RN - 01/17/2024 1:16 PM CDT Rubi Phan, RN ? 01/17/2024 ??1:53 PM Diagnosis: Nonalcoholic fatty liver disease RN verified patient NPO for prior 3 hours. Procedure explained. Date of Exam: 01/17/2024 Liver Stiffness: (LSM, kPa) median: ??9.9 IQR/Median% (ideally < 30%): ??8% CAP (controlled attenuation parameter): ??227 Technical Difficulty: Patient had fries, burger and shake 30 minutes ago Ordering Provider: Thalia Dunlap MD Phone Fax Thalia Dunlap MD PROCEDURE/MINOR SURG ICAL ORDERABLES * QUANTIFERON TB-GOLD (08/16/2023 8:36 AM CDT) Only the most recent of2 resultswithin the time period is included. QuantiFERON Incubation Incubation performed. [facility] INSURANCE BILL QuantiFERON Criteria [facility] INSURANCE BILL Comment: QuantiFERON-TB Gold Plus is a qualitative indirect test for M tuberculosis infection (including disease) and is intended for use in conjunction with risk assessment, radiography, and other medical and diagnostic evaluations. The QuantiFERON-TB Gold Plus result is determined by subtracting the Nil value from either TB antigen (Ag) value. The Mitogen tube serves as a control for the test. QuantiFERON TB1 Ag Value 0.03 IU/mL [facility] INSURANCE BILL QuantiFERON TB2 Ag Value 0.01 IU/mL [facility] INSURANCE BILL QuantiFERON Nil Value 0.01 IU/mL [facility] INSURANCE BILL QuantiFERON Mitogen Value 9.12 IU/mL [facility] INSURANCE BILL QuantiFERON-TB Gold Plus Negative Negative [facility] INSURANCE BILL Comment: No response to M tuberculosis antigens detected. Infection with M tuberculosis is unlikely, but high risk individuals should be considered for additional testing (ATS/IDSA/CDC Clinical Practice Guidelines, 2017). The reference range is an Antigen minus Nil result of <0.35 IU/mL. Chemiluminescence immunoassay methodology FASTING 08/16/2023 8:36 AM CDT 08/16/2023 Narrative Resulting Agency Comment Lab Testing performed at: [facility] ??Pending sale to [facility] [id number] Lonnie Tai MD LAB - CHEMISTRY ORDERABLES [facility] INSURANCE BILL [address] [place] [address] * HEPATITIS C ANTIBODY (08/16/2023 8:36 AM CDT) Only the most recent of2 resultswithin the time period is included. Hepatitis C Antibody Non Reactive Non Reactive [facility] INSURANCE BILL Comment: HCV antibody alone does not differentiate between previously resolved infection and active infection. Equivocal and Reactive HCV antibody results should be followed up with an HCV RNA test to support the diagnosis of active HCV infection. FASTING Blood BLOOD SPECIMEN / Unknown 08/16/2023 8:36 AM CDT 08/16/2023 Narrative Resulting Agency Comment Lab Testing performed at: [facility] ??Pending sale to [facility] [id number] Lonnie Tai MD LAB - [facility]MISTRY ORDERABLES [facility] [address] [place] [address] * INTERPRETATION REFLEXED (12/15/2022 2:35 PM J2EE ENGINEER) Interpretation Comment 12/16/2022 11:11 AM J2EE ENGINEER [facility] ([facility]) Comment: Not infected with HCV unless early or acute infection is suspected (which may be delayed in an immunocompromised individual), or other evidence exists to indicate HCV infection. Blood BLOOD SPECIMEN / Unknown Lab Venipuncture / Unknown 12/15/2022 2:35 PM J2EE ENGINEER 12/15/2022 2:56 PM J2EE ENGINEER Narrative [facility] ([facility]) - 12/16/2022 11:11 AM J2EE ENGINEER Performed at: ??[address] ??[id number] Medical Records Coordinator: Evaristo Hamilton PhD, Phone: ??[phone] Thalia Dunlap MD LAB - SEROLOGY ORDER BLESSING [facility] ([facility]) [address] [place] [address], [facility] * HEPATITIS C ANTIBODY W RFLX PCR (12/15/2022 2:35 PM J2EE ENGINEER) Hepatitis C Antibody Non Reactive Non Reactive 12/16/2022 11:11 AM J2EE ENGINEER [facility] ([facility]) Blood BLOOD SPECIMEN / Unknown Lab Venipuncture / Unknown 12/15/2022 2:35 PM J2EE ENGINEER 12/15/2022 2:56 PM J2EE ENGINEER Narrative [facility] ([facility]) - 12/16/2022 11:11 AM J2EE ENGINEER Performed at: ??[address] - [address] ??[id number] Medical Records Coordinator: Evaristo Hamilton PhD, Phone: ??[phone] Thalia Dunlap MD LAB - CHEMISTRY ROBERT MAY [facility] ([facility]) [address] [place] [address], [facility] * SMOOTH MUSCLE ANTIBODY W REFLEX TITER (12/15/2022 2:35 PM J2EE ENGINEER) F-Actin Antibody IgG 5 0 - 19 Units 12/17/2022 3:22 PM J2EE ENGINEER [facility] ([facility]) Comment: If F-Actin (Smooth Muscle) Antibody, IgG is negative, the Smooth Muscle Antibody titer by IFA is not performed. REFERENCE INTERVAL: F-Actin (Smooth Muscle) Antibody, IgG by ?NEFTALY ??19 Units or less ....... Negative ??20 - 30 Units .......... Weak Positive-Suggest repeat ? testing in two to three weeks ? with fresh specimen. ??31 Units or greater..... Positive-Suggestive of ? autoimmune hepatitis type 1 ? or chronic active hepatitis. F-actin IgG antibodies have been shown to have increased sensitivity for autoimmune hepatitis (AIH) but lower specificity than smooth muscle antibodies (SMA). F-actin IgG antibodies can also be seen in SMA-negative disease controls (non-AIH), especially in patients with primary biliary cirrhosis and chronic hepatitis C infections. Some patients with AIH may be SMA-positive but negative for F-actin IgG. Consider testing for SMA by IFA if suspicion for AIH is strong. Performed By: [facility] [address] [place] [id number] Smoke Jumper: Kleber Choudhary MD, PhD Blood BLOOD SPECIMEN / Unknown Lab Venipuncture / Unknown 12/15/2022 2:35 PM J2EE ENGINEER 12/15/2022 2:56 PM J2EE ENGINEER Thalia Dunlap MD LAB - SEROLOGY ORDER BLESSING Performing Organization Address [facility] Co de Phone Number [facility] [employer] [facility]) [address] * MITOCHONDRIAL ANTIBODY SCREEN (12/15/2022 2:35 PM J2EE ENGINEER) Mitochondrial M2 Antibody 2.7 0.0 - 24.9 Units 12/17/2022 3:23 PM J2EE ENGINEER [facility] ([facility]) Comment: REFERENCE INTERVAL: Mitochondrial (M2) Antibody, IgG ?20.0 Units or less ......... Negative ??20.1 - 24.9 Units........... Equivocal ??25.0 Units or greater....... Positive Anti-mitochondrial antibodies (AMA) are thought to be present in 90-95% of patients with primary biliary cholangitis (PBC). However, the frequency of detected antibodies may be cohort or assay dependent, as lower sensitivities have been reported. Not all PBC patients are positive for AMA; some patients may be positive for SP100 and/or GP210 antibodies. A negative result does not rule out PBC. Performed By: [facility] [address] [place] [address] Smoke Jumper: Kleber Choudhary MD, PhD Blood BLOOD SPECIMEN / Unknown Lab Venipuncture / Unknown 12/15/2022 2:35 PM J2EE ENGINEER 12/15/2022 2:56 PM J2EE ENGINEER Thalia Dunlap MD LAB - CHEMISTRY ORDE YADIRA [facility] [employer] ([facility]) [address] * TSH REFLEX FREE T4 (12/15/2022 2:35 PM J2EE ENGINEER) TSH 2.486 0.350 - 4.940 uIU/mL 12/15/2022 3:49 PM J2EE ENGINEER [facility] Blood BLOOD SPECIMEN / Unknown Lab Venipuncture / Unknown 12/15/2022 2:35 PM J2EE ENGINEER 12/15/2022 2:58 PM J2EE ENGINEER Thalia Dunlap MD LAB - CHEMISTRY ORDE YADIRA Performing Organization Address City/[facility]/ZIP Co de Phone Number [place] [phone], [facility] [phone] * TISSUE TRANSGLUTAMINASE AB IGA (12/15/2022 2:35 PM J2EE ENGINEER) Tissue Transglutaminase (tTG) Ab, IgA <2 0 - 3 U/mL 12/17/2022 2:11 PM J2EE ENGINEER [facility] ([facility]) Comment: INTERPRETIVE INFORMATION: Tissue Transglutaminase (tTG) Antibody, IgA 3 U/mL or less: Negative 4-10 U/mL: Weak Positive 11 U/mL or greater: Positive Presence of the tissue transglutaminase (tTG) IgA antibody is associated with glutensensitive enteropathies such as celiac disease and dermatitis herpetiformis. tTG IgA antibody concentrations greater than 40 U/mL usually correlate with results of duodenal biopsies consistent with a diagnosis of celiac disease. For antibody concentrations greater or equal to 4 U/mL but less than or equal to 40 U/mL, additional testing for endomysial (FABRICIO) IgA concentrations may improve the positive predictive value for disease. Performed By: [facility] [address] [place] [address] Smoke Jumper: Kleber Choudhary MD, PhD Blood BLOOD SPECIMEN / Unknown Lab Venipuncture / Unknown 12/15/2022 2:35 PM J2EE ENGINEER 12/15/2022 2:56 PM J2EE ENGINEER Thalia Dunlap MD LAB - SEROLOGY ORDER BLESSING Performing Organization Address City/[facility]/ZIP Co de Phone Number [facility] [employer] [facility]) [address] [place], [place] [id number] [place] [address] * NAN BLOOD SCREEN W/REFLEX TITER (12/15/2022 2:35 PM J2EE ENGINEER) Only the most recent of2 resultswithin the time period is included. NAN IgG None Detected None Detected 12/17/2022 8:50 PM J2EE ENGINEER [facility] ([facility]) Comment: If suspicion of connective tissue disease is strong and NAN EIA is negative, consider testing for NAN by IFA ([id number]). INTERPRETIVE INFORMATION: Anti-Nuclear Antibodies (NAN), IgG by NEFTALY Antinuclear Antibodies (NAN), IgG by NEFTALY: NAN specimens are screened using enzyme-linked immunosorbent assay (NEFTALY) methodology. All NEFTALY results reported as Detected are further tested by indirect fluorescent assay (IFA) using HEp-2 substrate with an IgG-specific conjugate. The NAN NEFTALY screen is designed to detect antibodies against dsDNA, histones, SS-A (Ro), SS-B (La), Alexander, Alexander/PLATE AND WELD INSPECTOR, Scl-70, Shell-1, centromeric proteins, other antigens extracted from the HEp-2 cell nucleus. NAN NEFTALY assays have been reported to have lower sensitivities than NAN IFA for systemic autoimmune rheumatic diseases (SARD). Negative results do not necessarily rule out SARD. Performed By: [facility] [employer] [address] [place] [address] Smoke Jumper: Kleber Choudhary MD, PhD Blood BLOOD SPECIMEN / Unknown Lab Venipuncture / Unknown 12/15/2022 2:35 PM J2EE ENGINEER 12/15/2022 2:57 PM J2EE ENGINEER Thalia Dunlap MD LAB - CHEMISTRY ROBERT MAY [facility] ([facility]) [address] [place] [address], [facility] * (ABNORMAL) HEMOGLOBIN A1C (12/15/2022 2:35 PM J2EE ENGINEER) Hemoglobin A1c 6.7(H) <=5.6 % 12/16/2022 10:36 AM [facility] Estimated Average Glucose 146 mg/dL 12/16/2022 10:36 AM [facility] Comment: HbA1c Interpretation: Normal : < 5.7% Pre-diabetes: 5.7-6.4% Diabetes: Equal to or greater than 6.5% Test results diagnostic of diabetes should be repeated for confirmation. Treatment target values recommended by ADA and other clinical organizations should be used to evaluate metabolic control in patients. Reference: [place] [employer], Standards of Care in Diabetes -2020 In patients 70 years and older consider HbA1c target range of 7.0-7.5% (Reference: Oz Vizcarra et al. JAMDA. 2012) The Sebia assay for the measurement of HbA1c is a National Glycohemoglobin Standardization Program (NGSP) certified method. Blood BLOOD SPECIMEN / Unknown Lab Venipuncture / Unknown 12/15/2022 2:35 PM J2EE ENGINEER 12/15/2022 2:58 PM J2EE ENGINEER Thalia Dunlap MD LAB - CHEMISTRY ROBERT MAY Performing Organization Address City/[facility]/ZIP Co de Phone Number [address] [address], [facility] [phone] * BHAJO-0-ANDIEAWUKNE BLOOD (12/15/2022 2:35 PM J2EE ENGINEER) Eteee-8-Qsrgfh ypsin 95 90 - 200 mg/dL 12/15/2022 3:23 PM [facility] Blood BLOOD SPECIMEN / Unknown Lab Venipuncture / Unknown 12/15/2022 2:35 PM J2EE ENGINEER 12/15/2022 2:56 PM J2EE ENGINEER Thalia Dunlap MD LAB - CHEMISTRY ROBERT MAY Performing Organization Address [facility]/ZIP Co de Phone Number [address] [address], [facility] [phone] * (ABNORMAL) CBC W/O DIFFERENTIAL (12/15/2022 2:35 PM J2EE ENGINEER) WBC 9.4 3.5 - 10.5 10? 3 /uL 12/15/2022 3:06 PM [facility] RBC 4.36 3.80 - 5.20 10? 6 /uL 12/15/2022 3:06 PM [facility] Hemoglobin 11.9(L) 12.0 - 15.6 g/dL 12/15/2022 3:06 PM [facility] Hematocrit 35.5 35.0 - 45.0 % 12/15/2022 3:06 PM [facility] MCV 81.4 80.7 - 98.3 fL 12/15/2022 3:06 PM [facility] MCH 27.3 26.7 - 34.0 pg 12/15/2022 3:06 PM [facility] MCHC 33.5 30.8 - 35.9 g/dL 12/15/2022 3:06 PM [facility] RDW-SD 46.5 36.0 - 50.0 fL 12/15/2022 3:06 PM [facility] RDW-CV 15.5(H) 11.2 - 14.8 % 12/15/2022 3:06 PM [facility] Platelet Count 293 150 - 400 10? 3 /uL 12/15/2022 3:06 PM [facility] MPV 10.7 9.4 - 12.9 fL 12/15/2022 3:06 PM [facility] nRBC Absolute 0.00 0 10? 3 /uL 12/15/2022 3:06 PM [facility] nRBC Auto 0.0 0 /100 WBC 12/15/2022 3:06 PM [facility] Blood BLOOD SPECIMEN / Unknown Lab Venipuncture / Unknown 12/15/2022 2:35 PM J2EE ENGINEER 12/15/2022 2:59 PM J2EE ENGINEER Thalia Dunlap MD LAB - HEMATOLOGY ORD WHIT Performing Organization Address [facility]/State/ZIP Co de Phone Number [facility] [address] [place] [address], [facility] [phone] * (ABNORMAL) IRON + TRANSFERRIN PANEL (12/15/2022 2:35 PM J2EE ENGINEER) Iron 78 40 - 150 ug/dL 12/15/2022 3:22 PM [facility] Transferrin 389(H) 174 - 382 mg/dL 12/15/2022 3:22 PM [facility] Transferrin Saturation % 16 16 - 50 % 12/15/2022 3:22 PM [facility] TIBC Calculated 486(H) 240 - 450 ug/dL 12/15/2022 3:22 PM [facility] Blood BLOOD SPECIMEN / Unknown Lab Venipuncture / Unknown 12/15/2022 2:35 PM J2EE ENGINEER 12/15/2022 2:56 PM J2EE ENGINEER Thalia Dunlap MD LAB - CHEMISTRY ROBERT MAY [facility] [address] [place] [address], [place] [phone] * IGM BLOOD (12/15/2022 2:35 PM J2EE ENGINEER) IgM 46 37 - 286 mg/dL 12/15/2022 3:22 PM J2EE ENGINEER [facility] Blood BLOOD SPECIMEN / Unknown Lab Venipuncture / Unknown 12/15/2022 2:35 PM J2EE ENGINEER 12/15/2022 2:56 PM J2EE ENGINEER Thalia Dunlap MD LAB - CHEMISTRY ROBERT MAY Performing Organization Address City/[facility]/ZIP Co de Phone Number [address] [address], [place] [phone] * (ABNORMAL) IGG BLOOD (12/15/2022 2:35 PM J2EE ENGINEER) IgG 542(L) 767 - 1,590 mg/dL 12/15/2022 3:22 PM J2EE ENGINEER [facility] Blood BLOOD SPECIMEN / Unknown Lab Venipuncture / Unknown 12/15/2022 2:35 PM J2EE ENGINEER 12/15/2022 2:56 PM J2EE ENGINEER Thalia Dunlap MD LAB - CHEMISTRY ROBERT MAY Performing Organization Address City/[facility]/ZIP Co de Phone Number [address] [address], [place] [phone] * IGA BLOOD (12/15/2022 2:35 PM J2EE ENGINEER) IgA 133 61 - 356 mg/dL 12/15/2022 3:22 PM J2EE ENGINEER [facility] Blood BLOOD SPECIMEN / Unknown Lab Venipuncture / Unknown 12/15/2022 2:35 PM J2EE ENGINEER 12/15/2022 2:56 PM J2EE ENGINEER Thalia Dunlap MD LAB - CHEMISTRY ROBERT MAY [address] [address], [place] [phone] * HEPATITIS B CORE ANTIBODY IGM (12/15/2022 2:35 PM J2EE ENGINEER) [facility] Hepatitis B Core Virus Antibody IgM Non-reacti ve Non-reacti ve 12/15/2022 3:41 PM J2EE ENGINEER [facility] Blood BLOOD SPECIMEN / Unknown Lab Venipuncture / Unknown 12/15/2022 2:35 PM J2EE ENGINEER 12/15/2022 2:56 PM J2EE ENGINEER Thalia Dunlap MD LAB - CHEMISTRY ROBERT MAY [facility] [address] [place] [address], [place] [phone] * FERRITIN (12/15/2022 2:35 PM J2EE ENGINEER) [facility] Ferritin 29 13 - 204 ng/mL 12/15/2022 3:41 PM [facility] Blood BLOOD SPECIMEN / Unknown Lab Venipuncture / Unknown 12/15/2022 2:35 PM J2EE ENGINEER 12/15/2022 2:56 PM J2EE ENGINEER Thalia Dunlap MD LAB - CHEMISTRY ROBERT MAY [facility] [address] [place] [address], [place] [phone] * (ABNORMAL) LIPID PROFILE (12/15/2022 2:35 PM J2EE ENGINEER) [facility] Cholesterol Total 94 <200 mg/dL 12/15/2022 3:32 PM [facility] HDL 32(L) >40 mg/dL 12/15/2022 3:32 PM [facility] Comment: ATP III Classification of HDL Cholesterol: ? <40 mg/dL: ??Considered a major risk factor. ? >60 mg/dL: ??Considered a negative risk factor. ? LDL Calculated 39 <100 mg/dL 12/15/2022 3:32 PM [facility] Comment: ATP III Classification of LDL Cholesterol: ?<100 mg/dL: ??Optimal ? 100 - 129 mg/dL: ??Near Optimal/Above Optimal ? 130 - 159 mg/dL: ??Borderline High ? 160 - 189 mg/dL: ??High ?>190 mg/dL: ??Very High ? Triglycerides 117 <150 mg/dL 12/15/2022 3:32 PM J2EE ENGINEER [facility] Comment: ATP III Classification of Triglycerides: ?<150 mg/dL: ??Normal ? 150 - 199 mg/dL: ??Borderline High ? 200 - 400 mg/dL: ??High ?>500 mg/dL: ??Very High Blood BLOOD SPECIMEN / Unknown Lab Venipuncture / Unknown 12/15/2022 2:35 PM [employer] ENGINEER 12/15/2022 2:58 PM [employer] ENGINEER Thalia Dunlap MD LAB - CHEMISTRY ROBERT MAY Performing Organization Address City/State/[facility] Co de Phone Number [facility] [address] [place] [id number], [facility] [phone] * XR FOOT RIGHT 3VW OR MORE (12/15/2022 2:23 PM J2EE ENGINEER) Anatomical Region Laterality Modality Ankle / Foot Radiographic Adelina ging 12/15/2022 2:45 PM J2EE ENGINEER Impressions 12/15/2022 2:59 PM J2EE ENGINEER Impression: 1. Right hand and wrist: Moderate osteoarthritis at the first carpometacarpal joint. Small chronic appearing erosion in the third proximal phalanx base. No other erosions. 2. Left hand and wrist: Moderate osteoarthritis at the first carpometacarpal joint. No erosions. 3. Left forearm: No acute osseous abnormality. 4. Right foot: Small erosion at the fifth toe proximal interphalangeal joint (versus posttraumatic deformity, given a nearby chronic fracture of the fifth metatarsal). Mild osteoarthritis at the first metatarsophalangeal joint. Mild tarsometatarsal arthritis. 5. Left foot: Minimal degenerative change. > Interpreting Provider: Terrance Lyles MD on 12/15/2022 2:59 PM Narrative 12/15/2022 2:59 PM J2EE ENGINEER PROCEDURE: ??XR FOREARM LEFT 2VW, XR FOOT RIGHT 3VW OR MORE, XR FOOT LEFT 3VW OR MORE, XR WRIST RIGHT 3VW OR MORE, XR WRIST LEFT 3VW OR MORE, XR HAND RIGHT 3VW OR MORE, XR HAND LEFT 3VW OR MORE, DATE/TIME OF EXAM: ??12/15/2022 2:23 PM, LOCATION ??[facility] INDICATION: M05.9: Rheumatoid arthritis with positive rheumatoid factor, involving unspecified site ([facility]) ADDITIONAL CLINICAL INFORMATION: Ordering Provider Reason For Exam: Technologist Note: Additional: COMPARISON: Right and left hand radiographs dated 04/17/2019 ??. FINDINGS: Right hand: No acute fracture or dislocation. Moderate osteoarthritis at the first carpometacarpal joint. Minimal degenerative change at a few other joints. A small cortical defect at the base of the third proximal phalanx on the oblique view appears to represent a chronic erosion; a comparable oblique view was not performed on the last study for comparison. The bones are osteopenic. The soft tissues are normal. Left hand: No acute fracture or dislocation. Moderate osteoarthritis at the first carpometacarpal joint. The other joint spaces are normal. No erosions. Small calcifications near the fourth and fifth metacarpal heads. Mild swan-neck deformity of the fourth finger. The bones are osteopenic. The soft tissues are normal. Right wrist: No fracture or dislocation. Moderate osteoarthritis at the first carpometacarpal joint. Chronic deformity of the distal radius and the distal ulnar shaft consistent with healed fractures. A previously described chronic erosion in the ulnar styloid is no longer well visualized. No new erosions. The joint spaces are otherwise maintained. Osteopenia. The soft tissues are normal. Left wrist: No fracture or dislocation. Moderate osteoarthritis at the first carpometacarpal joint. No erosions. Osteopenia. The soft tissues are normal. Left forearm: There is no fracture of the radius or ulna. The bones are osteopenic. Small calcification anterior aspect of the elbow. Small osteophyte at the elbow. Right foot: No acute fracture or dislocation. Chronic deformity of the fifth metatarsal distal shaft consistent with a healed fracture. There is an erosion or possibly posttraumatic deformity in the fifth toe proximal phalanx head. No other erosions are seen. Mild osteoarthritis of the first metatarsophalangeal joint with hypertrophy at the medial aspect of the metatarsal head. The bones are osteopenic. Mild soft tissue swelling at the first metatarsophalangeal joint. Mild arthritis at the tarsometatarsal joints with osteophytes, sclerosis, mild cortical irregularity. Left foot: No fracture or dislocation. The joint spaces are normal. Mild degenerative change at the first metatarsophalangeal joint with cysts in the metatarsal head. No definite erosions. The bones are slightly osteopenic. The soft tissues are normal. Procedure Note Terrance Lyles MD - 12/15/2022 PROCEDURE: XR FOREARM LEFT 2VW, XR FOOT RIGHT 3VW OR MORE, XR FOOT LEFT 3VW OR MORE, XR WRIST RIGHT 3VW OR MORE, XR WRIST LEFT 3VW OR MORE, XRHAND RIGHT 3VW OR MORE, XR HAND LEFT 3VW OR MORE, DATE/TIME OF EXAM:12/15/2022 2:23 PM, LOCATION [facility] INDICATION: M05.9: Rheumatoid arthritis with positive rheumatoid factor, involving unspecified site ([facility]) ADDITIONAL CLINICAL INFORMATION: Ordering Provider Reason For Exam: Technologist Note: Additional: COMPARISON: Right and left hand radiographs dated 04/17/2019 . FINDINGS: Right hand: No acute fracture or dislocation. Moderate osteoarthritis at the first carpometacarpal joint. Minimal degenerative change at a few other joints.A small cortical defect at the base of the third proximal phalanx on the oblique view appears to represent a chronic erosion; a comparableoblique view was not performed on the last study for comparison. The bones are osteopenic. The soft tissues are normal. Left hand: No acute fracture or dislocation. Moderate osteoarthritis at the first carpometacarpal joint. The other joint spaces are normal. No erosions. Small calcifications near the fourth and fifth metacarpal heads. Mild swan-neck deformity of the fourth finger. The bones are osteopenic. The soft tissues are normal. Right wrist: No fracture or dislocation. Moderate osteoarthritis at the first carpometacarpal joint. Chronic deformity of the distal radius and the distal ulnar shaft consistent with healed fractures. A previouslydescribed chronic erosion in the ulnar styloid is no longer well visualized. Nonew erosions. The joint spaces are otherwise maintained. Osteopenia. Thesoft tissues are normal. Left wrist: No fracture or dislocation. Moderate osteoarthritis at the first carpometacarpal joint. No erosions. Osteopenia. The soft tissues are normal. Left forearm: There is no fracture of the radius or ulna. The bones are osteopenic.Small calcification anterior aspect of the elbow. Small osteophyte at theelbow. Right foot: No acute fracture or dislocation. Chronic deformity of the fifthmetatarsal distal shaft consistent with a healed fracture. There is an erosion or possibly posttraumatic deformity in the fifth toe proximal phalanx head.No other erosions are seen. Mild osteoarthritis of the first metatarsophalangeal joint with hypertrophy at the medial aspect of the metatarsal head. The bones are osteopenic. Mild soft tissue swelling atthe first metatarsophalangeal joint. Mild arthritis at the tarsometatarsal joints with osteophytes, sclerosis, mild cortical irregularity. Left foot: No fracture or dislocation. The joint spaces are normal. Milddegenerative change at the first metatarsophalangeal joint with cysts in themetatarsal head. No definite erosions. The bones are slightly osteopenic. The soft tissues are normal. Impression: 1. Right hand and wrist: Moderate osteoarthritis at the first carpometacarpal joint. Small chronic appearing erosion in the third proximal phalanx base. No other erosions. 2. Left hand and wrist: Moderate osteoarthritis at the first carpometacarpal joint. No erosions. 3. Left forearm: No acute osseous abnormality. 4. Right foot: Small erosion at the fifth toe proximal interphalangeal joint (versus posttraumatic deformity, given a nearby chronic fractureof the fifth metatarsal). Mild osteoarthritis at the firstmetatarsophalangeal joint. Mild tarsometatarsal arthritis. 5. Left foot: Minimal degenerative change. > Interpreting Provider: Terrance Lyles MD on 12/15/2022 2:59 PM Gerald Merchant MD DIAGNOSTIC IMAGING O RDERABLES * XR FOOT LEFT 3VW OR MORE (12/15/2022 2:23 PM J2EE ENGINEER) Anatomical Region Laterality Modality Ankle / Foot Radiographic Adelina ging 12/15/2022 2:45 PM J2EE ENGINEER Impressions 12/15/2022 2:59 PM J2EE ENGINEER Impression: 1. Right hand and wrist: Moderate osteoarthritis at the first carpometacarpal joint. Small chronic appearing erosion in the third proximal phalanx base. No other erosions. 2. Left hand and wrist: Moderate osteoarthritis at the first carpometacarpal joint. No erosions. 3. Left forearm: No acute osseous abnormality. 4. Right foot: Small erosion at the fifth toe proximal interphalangeal joint (versus posttraumatic deformity, given a nearby chronic fracture of the fifth metatarsal). Mild osteoarthritis at the first metatarsophalangeal joint. Mild tarsometatarsal arthritis. 5. Left foot: Minimal degenerative change. > Interpreting Provider: Terrance Lyles MD on 12/15/2022 2:59 PM Narrative 12/15/2022 2:59 PM J2EE ENGINEER PROCEDURE: ??XR FOREARM LEFT 2VW, XR FOOT RIGHT 3VW OR MORE, XR FOOT LEFT 3VW OR MORE, XR WRIST RIGHT 3VW OR MORE, XR WRIST LEFT 3VW OR MORE, XR HAND RIGHT 3VW OR MORE, XR HAND LEFT 3VW OR MORE, DATE/TIME OF EXAM: ??12/15/2022 2:23 PM, LOCATION ??[facility] INDICATION: M05.9: Rheumatoid arthritis with positive rheumatoid factor, involving unspecified site ([facility]) ADDITIONAL CLINICAL INFORMATION: Ordering Provider Reason For Exam: Technologist Note: Additional: COMPARISON: Right and left hand radiographs dated 04/17/2019 ??. FINDINGS: Right hand: No acute fracture or dislocation. Moderate osteoarthritis at the first carpometacarpal joint. Minimal degenerative change at a few other joints. A small cortical defect at the base of the third proximal phalanx on the oblique view appears to represent a chronic erosion; a comparable oblique view was not performed on the last study for comparison. The bones are osteopenic. The soft tissues are normal. Left hand: No acute fracture or dislocation. Moderate osteoarthritis at the first carpometacarpal joint. The other joint spaces are normal. No erosions. Small calcifications near the fourth and fifth metacarpal heads. Mild swan-neck deformity of the fourth finger. The bones are osteopenic. The soft tissues are normal. Right wrist: No fracture or dislocation. Moderate osteoarthritis at the first carpometacarpal joint. Chronic deformity of the distal radius and the distal ulnar shaft consistent with healed fractures. A previously described chronic erosion in the ulnar styloid is no longer well visualized. No new erosions. The joint spaces are otherwise maintained. Osteopenia. The soft tissues are normal. Left wrist: No fracture or dislocation. Moderate osteoarthritis at the first carpometacarpal joint. No erosions. Osteopenia. The soft tissues are normal. Left forearm: There is no fracture of the radius or ulna. The bones are osteopenic. Small calcification anterior aspect of the elbow. Small osteophyte at the elbow. Right foot: No acute fracture or dislocation. Chronic deformity of the fifth metatarsal distal shaft consistent with a healed fracture. There is an erosion or possibly posttraumatic deformity in the fifth toe proximal phalanx head. No other erosions are seen. Mild osteoarthritis of the first metatarsophalangeal joint with hypertrophy at the medial aspect of the metatarsal head. The bones are osteopenic. Mild soft tissue swelling at the first metatarsophalangeal joint. Mild arthritis at the tarsometatarsal joints with osteophytes, sclerosis, mild cortical irregularity. Left foot: No fracture or dislocation. The joint spaces are normal. Mild degenerative change at the first metatarsophalangeal joint with cysts in the metatarsal head. No definite erosions. The bones are slightly osteopenic. The soft tissues are normal. Procedure Note Terrance Lyles MD - 12/15/2022 PROCEDURE: XR FOREARM LEFT 2VW, XR FOOT RIGHT 3VW OR MORE, XR FOOT LEFT 3VW OR MORE, XR WRIST RIGHT 3VW OR MORE, XR WRIST LEFT 3VW OR MORE, XRHAND RIGHT 3VW OR MORE, XR HAND LEFT 3VW OR MORE, DATE/TIME OF EXAM:12/15/2022 2:23 PM, LOCATION [facility] INDICATION: M05.9: Rheumatoid arthritis with positive rheumatoid factor, involving unspecified site ([facility]) ADDITIONAL CLINICAL INFORMATION: Ordering Provider Reason For Exam: Technologist Note: Additional: COMPARISON: Right and left hand radiographs dated 04/17/2019 . FINDINGS: Right hand: No acute fracture or dislocation. Moderate osteoarthritis at the first carpometacarpal joint. Minimal degenerative change at a few other joints.A small cortical defect at the base of the third proximal phalanx on the oblique view appears to represent a chronic erosion; a comparableoblique view was not performed on the last study for comparison. The bones are osteopenic. The soft tissues are normal. Left hand: No acute fracture or dislocation. Moderate osteoarthritis at the first carpometacarpal joint. The other joint spaces are normal. No erosions. Small calcifications near the fourth and fifth metacarpal heads. Mild swan-neck deformity of the fourth finger. The bones are osteopenic. The soft tissues are normal. Right wrist: No fracture or dislocation. Moderate osteoarthritis at the first carpometacarpal joint. Chronic deformity of the distal radius and the distal ulnar shaft consistent with healed fractures. A previouslydescribed chronic erosion in the ulnar styloid is no longer well visualized. Nonew erosions. The joint spaces are otherwise maintained. Osteopenia. Thesoft tissues are normal. Left wrist: No fracture or dislocation. Moderate osteoarthritis at the first carpometacarpal joint. No erosions. Osteopenia. The soft tissues are normal. Left forearm: There is no fracture of the radius or ulna. The bones are osteopenic.Small calcification anterior aspect of the elbow. Small osteophyte at theelbow. Right foot: No acute fracture or dislocation. Chronic deformity of the fifthmetatarsal distal shaft consistent with a healed fracture. There is an erosion or possibly posttraumatic deformity in the fifth toe proximal phalanx head.No other erosions are seen. Mild osteoarthritis of the first metatarsophalangeal joint with hypertrophy at the medial aspect of the metatarsal head. The bones are osteopenic. Mild soft tissue swelling atthe first metatarsophalangeal joint. Mild arthritis at the tarsometatarsal joints with osteophytes, sclerosis, mild cortical irregularity. Left foot: No fracture or dislocation. The joint spaces are normal. Milddegenerative change at the first metatarsophalangeal joint with cysts in themetatarsal head. No definite erosions. The bones are slightly osteopenic. The soft tissues are normal. Impression: 1. Right hand and wrist: Moderate osteoarthritis at the first carpometacarpal joint. Small chronic appearing erosion in the third proximal phalanx base. No other erosions. 2. Left hand and wrist: Moderate osteoarthritis at the first carpometacarpal joint. No erosions. 3. Left forearm: No acute osseous abnormality. 4. Right foot: Small erosion at the fifth toe proximal interphalangeal joint (versus posttraumatic deformity, given a nearby chronic fractureof the fifth metatarsal). Mild osteoarthritis at the firstmetatarsophalangeal joint. Mild tarsometatarsal arthritis. 5. Left foot: Minimal degenerative change. > Interpreting Provider: Terrance Lyles MD on 12/15/2022 2:59 PM Gerald Merchant MD DIAGNOSTIC IMAGING O RDERABLES * XR HAND RIGHT 3VW OR MORE (12/15/2022 2:23 PM J2EE ENGINEER) Only the most recent of2 resultswithin the time period is included. Anatomical Region Laterality Modality Wrist / Hand Radiographic Adelina ging 12/15/2022 2:45 PM J2EE ENGINEER Impressions 12/15/2022 2:59 PM J2EE ENGINEER Impression: 1. Right hand and wrist: Moderate osteoarthritis at the first carpometacarpal joint. Small chronic appearing erosion in the third proximal phalanx base. No other erosions. 2. Left hand and wrist: Moderate osteoarthritis at the first carpometacarpal joint. No erosions. 3. Left forearm: No acute osseous abnormality. 4. Right foot: Small erosion at the fifth toe proximal interphalangeal joint (versus posttraumatic deformity, given a nearby chronic fracture of the fifth metatarsal). Mild osteoarthritis at the first metatarsophalangeal joint. Mild tarsometatarsal arthritis. 5. Left foot: Minimal degenerative change. > Interpreting Provider: Terrnace Lyles MD on 12/15/2022 2:59 PM Narrative 12/15/2022 2:59 PM J2EE ENGINEER PROCEDURE: ??XR FOREARM LEFT 2VW, XR FOOT RIGHT 3VW OR MORE, XR FOOT LEFT 3VW OR MORE, XR WRIST RIGHT 3VW OR MORE, XR WRIST LEFT 3VW OR MORE, XR HAND RIGHT 3VW OR MORE, XR HAND LEFT 3VW OR MORE, DATE/TIME OF EXAM: ??12/15/2022 2:23 PM, LOCATION ??[facility] INDICATION: M05.9: Rheumatoid arthritis with positive rheumatoid factor, involving unspecified site ([facility]) ADDITIONAL CLINICAL INFORMATION: Ordering Provider Reason For Exam: Technologist Note: Additional: COMPARISON: Right and left hand radiographs dated 04/17/2019 ??. FINDINGS: Right hand: No acute fracture or dislocation. Moderate osteoarthritis at the first carpometacarpal joint. Minimal degenerative change at a few other joints. A small cortical defect at the base of the third proximal phalanx on the oblique view appears to represent a chronic erosion; a comparable oblique view was not performed on the last study for comparison. The bones are osteopenic. The soft tissues are normal. Left hand: No acute fracture or dislocation. Moderate osteoarthritis at the first carpometacarpal joint. The other joint spaces are normal. No erosions. Small calcifications near the fourth and fifth metacarpal heads. Mild swan-neck deformity of the fourth finger. The bones are osteopenic. The soft tissues are normal. Right wrist: No fracture or dislocation. Moderate osteoarthritis at the first carpometacarpal joint. Chronic deformity of the distal radius and the distal ulnar shaft consistent with healed fractures. A previously described chronic erosion in the ulnar styloid is no longer well visualized. No new erosions. The joint spaces are otherwise maintained. Osteopenia. The soft tissues are normal. Left wrist: No fracture or dislocation. Moderate osteoarthritis at the first carpometacarpal joint. No erosions. Osteopenia. The soft tissues are normal. Left forearm: There is no fracture of the radius or ulna. The bones are osteopenic. Small calcification anterior aspect of the elbow. Small osteophyte at the elbow. Right foot: No acute fracture or dislocation. Chronic deformity of the fifth metatarsal distal shaft consistent with a healed fracture. There is an erosion or possibly posttraumatic deformity in the fifth toe proximal phalanx head. No other erosions are seen. Mild osteoarthritis of the first metatarsophalangeal joint with hypertrophy at the medial aspect of the metatarsal head. The bones are osteopenic. Mild soft tissue swelling at the first metatarsophalangeal joint. Mild arthritis at the tarsometatarsal joints with osteophytes, sclerosis, mild cortical irregularity. Left foot: No fracture or dislocation. The joint spaces are normal. Mild degenerative change at the first metatarsophalangeal joint with cysts in the metatarsal head. No definite erosions. The bones are slightly osteopenic. The soft tissues are normal. Procedure Note Terrance Lyles MD - 12/15/2022 PROCEDURE: XR FOREARM LEFT 2VW, XR FOOT RIGHT 3VW OR MORE, XR FOOT LEFT 3VW OR MORE, XR WRIST RIGHT 3VW OR MORE, XR WRIST LEFT 3VW OR MORE, XRHAND RIGHT 3VW OR MORE, XR HAND LEFT 3VW OR MORE, DATE/TIME OF EXAM:12/15/2022 2:23 PM, LOCATION [facility] INDICATION: M05.9: Rheumatoid arthritis with positive rheumatoid factor, involving unspecified site ([facility]) ADDITIONAL CLINICAL INFORMATION: Ordering Provider Reason For Exam: Technologist Note: Additional: COMPARISON: Right and left hand radiographs dated 04/17/2019 . FINDINGS: Right hand: No acute fracture or dislocation. Moderate osteoarthritis at the first carpometacarpal joint. Minimal degenerative change at a few other joints.A small cortical defect at the base of the third proximal phalanx on the oblique view appears to represent a chronic erosion; a comparableoblique view was not performed on the last study for comparison. The bones are osteopenic. The soft tissues are normal. Left hand: No acute fracture or dislocation. Moderate osteoarthritis at the first carpometacarpal joint. The other joint spaces are normal. No erosions. Small calcifications near the fourth and fifth metacarpal heads. Mild swan-neck deformity of the fourth finger. The bones are osteopenic. The soft tissues are normal. Right wrist: No fracture or dislocation. Moderate osteoarthritis at the first carpometacarpal joint. Chronic deformity of the distal radius and the distal ulnar shaft consistent with healed fractures. A previouslydescribed chronic erosion in the ulnar styloid is no longer well visualized. Nonew erosions. The joint spaces are otherwise maintained. Osteopenia. Thesoft tissues are normal. Left wrist: No fracture or dislocation. Moderate osteoarthritis at the first carpometacarpal joint. No erosions. Osteopenia. The soft tissues are normal. Left forearm: There is no fracture of the radius or ulna. The bones are osteopenic.Small calcification anterior aspect of the elbow. Small osteophyte at theelbow. Right foot: No acute fracture or dislocation. Chronic deformity of the fifthmetatarsal distal shaft consistent with a healed fracture. There is an erosion or possibly posttraumatic deformity in the fifth toe proximal phalanx head.No other erosions are seen. Mild osteoarthritis of the first metatarsophalangeal joint with hypertrophy at the medial aspect of the metatarsal head. The bones are osteopenic. Mild soft tissue swelling atthe first metatarsophalangeal joint. Mild arthritis at the tarsometatarsal joints with osteophytes, sclerosis, mild cortical irregularity. Left foot: No fracture or dislocation. The joint spaces are normal. Milddegenerative change at the first metatarsophalangeal joint with cysts in themetatarsal head. No definite erosions. The bones are slightly osteopenic. The soft tissues are normal. Impression: 1. Right hand and wrist: Moderate osteoarthritis at the first carpometacarpal joint. Small chronic appearing erosion in the third proximal phalanx base. No other erosions. 2. Left hand and wrist: Moderate osteoarthritis at the first carpometacarpal joint. No erosions. 3. Left forearm: No acute osseous abnormality. 4. Right foot: Small erosion at the fifth toe proximal interphalangeal joint (versus posttraumatic deformity, given a nearby chronic fractureof the fifth metatarsal). Mild osteoarthritis at the firstmetatarsophalangeal joint. Mild tarsometatarsal arthritis. 5. Left foot: Minimal degenerative change. > Interpreting Provider: Terrance Lyles MD on 12/15/2022 2:59 PM Gerald Merchant MD DIAGNOSTIC IMAGING O RDERABLES * XR HAND LEFT 3VW OR MORE (12/15/2022 2:23 PM J2EE ENGINEER) Only the most recent of2 resultswithin the time period is included. Anatomical Region Laterality Modality Wrist / Hand Radiographic Adelina ging 12/15/2022 2:45 PM J2EE ENGINEER Impressions 12/15/2022 2:59 PM J2EE ENGINEER Impression: 1. Right hand and wrist: Moderate osteoarthritis at the first carpometacarpal joint. Small chronic appearing erosion in the third proximal phalanx base. No other erosions. 2. Left hand and wrist: Moderate osteoarthritis at the first carpometacarpal joint. No erosions. 3. Left forearm: No acute osseous abnormality. 4. Right foot: Small erosion at the fifth toe proximal interphalangeal joint (versus posttraumatic deformity, given a nearby chronic fracture of the fifth metatarsal). Mild osteoarthritis at the first metatarsophalangeal joint. Mild tarsometatarsal arthritis. 5. Left foot: Minimal degenerative change. > Interpreting Provider: Terrance Lyles MD on 12/15/2022 2:59 PM Narrative 12/15/2022 2:59 PM J2EE ENGINEER PROCEDURE: ??XR FOREARM LEFT 2VW, XR FOOT RIGHT 3VW OR MORE, XR FOOT LEFT 3VW OR MORE, XR WRIST RIGHT 3VW OR MORE, XR WRIST LEFT 3VW OR MORE, XR HAND RIGHT 3VW OR MORE, XR HAND LEFT 3VW OR MORE, DATE/TIME OF EXAM: ??12/15/2022 2:23 PM, LOCATION ??[facility] INDICATION: M05.9: Rheumatoid arthritis with positive rheumatoid factor, involving unspecified site ([facility]) ADDITIONAL CLINICAL INFORMATION: Ordering Provider Reason For Exam: Technologist Note: Additional: COMPARISON: Right and left hand radiographs dated 04/17/2019 ??. FINDINGS: Right hand: No acute fracture or dislocation. Moderate osteoarthritis at the first carpometacarpal joint. Minimal degenerative change at a few other joints. A small cortical defect at the base of the third proximal phalanx on the oblique view appears to represent a chronic erosion; a comparable oblique view was not performed on the last study for comparison. The bones are osteopenic. The soft tissues are normal. Left hand: No acute fracture or dislocation. Moderate osteoarthritis at the first carpometacarpal joint. The other joint spaces are normal. No erosions. Small calcifications near the fourth and fifth metacarpal heads. Mild swan-neck deformity of the fourth finger. The bones are osteopenic. The soft tissues are normal. Right wrist: No fracture or dislocation. Moderate osteoarthritis at the first carpometacarpal joint. Chronic deformity of the distal radius and the distal ulnar shaft consistent with healed fractures. A previously described chronic erosion in the ulnar styloid is no longer well visualized. No new erosions. The joint spaces are otherwise maintained. Osteopenia. The soft tissues are normal. Left wrist: No fracture or dislocation. Moderate osteoarthritis at the first carpometacarpal joint. No erosions. Osteopenia. The soft tissues are normal. Left forearm: There is no fracture of the radius or ulna. The bones are osteopenic. Small calcification anterior aspect of the elbow. Small osteophyte at the elbow. Right foot: No acute fracture or dislocation. Chronic deformity of the fifth metatarsal distal shaft consistent with a healed fracture. There is an erosion or possibly posttraumatic deformity in the fifth toe proximal phalanx head. No other erosions are seen. Mild osteoarthritis of the first metatarsophalangeal joint with hypertrophy at the medial aspect of the metatarsal head. The bones are osteopenic. Mild soft tissue swelling at the first metatarsophalangeal joint. Mild arthritis at the tarsometatarsal joints with osteophytes, sclerosis, mild cortical irregularity. Left foot: No fracture or dislocation. The joint spaces are normal. Mild degenerative change at the first metatarsophalangeal joint with cysts in the metatarsal head. No definite erosions. The bones are slightly osteopenic. The soft tissues are normal. Procedure Note Terrance Lyles MD - 12/15/2022 PROCEDURE: XR FOREARM LEFT 2VW, XR FOOT RIGHT 3VW OR MORE, XR FOOT LEFT 3VW OR MORE, XR WRIST RIGHT 3VW OR MORE, XR WRIST LEFT 3VW OR MORE, XRHAND RIGHT 3VW OR MORE, XR HAND LEFT 3VW OR MORE, DATE/TIME OF EXAM:12/15/2022 2:23 PM, LOCATION [facility] INDICATION: M05.9: Rheumatoid arthritis with positive rheumatoid factor, involving unspecified site ([facility]) ADDITIONAL CLINICAL INFORMATION: Ordering Provider Reason For Exam: Technologist Note: Additional: COMPARISON: Right and left hand radiographs dated 04/17/2019 . FINDINGS: Right hand: No acute fracture or dislocation. Moderate osteoarthritis at the first carpometacarpal joint. Minimal degenerative change at a few other joints.A small cortical defect at the base of the third proximal phalanx on the oblique view appears to represent a chronic erosion; a comparableoblique view was not performed on the last study for comparison. The bones are osteopenic. The soft tissues are normal. Left hand: No acute fracture or dislocation. Moderate osteoarthritis at the first carpometacarpal joint. The other joint spaces are normal. No erosions. Small calcifications near the fourth and fifth metacarpal heads. Mild swan-neck deformity of the fourth finger. The bones are osteopenic. The soft tissues are normal. Right wrist: No fracture or dislocation. Moderate osteoarthritis at the first carpometacarpal joint. Chronic deformity of the distal radius and the distal ulnar shaft consistent with healed fractures. A previouslydescribed chronic erosion in the ulnar styloid is no longer well visualized. Nonew erosions. The joint spaces are otherwise maintained. Osteopenia. Thesoft tissues are normal. Left wrist: No fracture or dislocation. Moderate osteoarthritis at the first carpometacarpal joint. No erosions. Osteopenia. The soft tissues are normal. Left forearm: There is no fracture of the radius or ulna. The bones are osteopenic.Small calcification anterior aspect of the elbow. Small osteophyte at theelbow. Right foot: No acute fracture or dislocation. Chronic deformity of the fifthmetatarsal distal shaft consistent with a healed fracture. There is an erosion or possibly posttraumatic deformity in the fifth toe proximal phalanx head.No other erosions are seen. Mild osteoarthritis of the first metatarsophalangeal joint with hypertrophy at the medial aspect of the metatarsal head. The bones are osteopenic. Mild soft tissue swelling atthe first metatarsophalangeal joint. Mild arthritis at the tarsometatarsal joints with osteophytes, sclerosis, mild cortical irregularity. Left foot: No fracture or dislocation. The joint spaces are normal. Milddegenerative change at the first metatarsophalangeal joint with cysts in themetatarsal head. No definite erosions. The bones are slightly osteopenic. The soft tissues are normal. Impression: 1. Right hand and wrist: Moderate osteoarthritis at the first carpometacarpal joint. Small chronic appearing erosion in the third proximal phalanx base. No other erosions. 2. Left hand and wrist: Moderate osteoarthritis at the first carpometacarpal joint. No erosions. 3. Left forearm: No acute osseous abnormality. 4. Right foot: Small erosion at the fifth toe proximal interphalangeal joint (versus posttraumatic deformity, given a nearby chronic fractureof the fifth metatarsal). Mild osteoarthritis at the firstmetatarsophalangeal joint. Mild tarsometatarsal arthritis. 5. Left foot: Minimal degenerative change. > Interpreting Provider: Terrance Lyles MD on 12/15/2022 2:59 PM Gerald Merchant MD DIAGNOSTIC IMAGING O RDERABLES * XR WRIST RIGHT 3VW OR MORE (12/15/2022 2:23 PM J2EE ENGINEER) Anatomical Region Laterality Modality Wrist / Hand Radiographic Adelina ging 12/15/2022 2:45 PM J2EE ENGINEER Impressions 12/15/2022 2:59 PM J2EE ENGINEER Impression: 1. Right hand and wrist: Moderate osteoarthritis at the first carpometacarpal joint. Small chronic appearing erosion in the third proximal phalanx base. No other erosions. 2. Left hand and wrist: Moderate osteoarthritis at the first carpometacarpal joint. No erosions. 3. Left forearm: No acute osseous abnormality. 4. Right foot: Small erosion at the fifth toe proximal interphalangeal joint (versus posttraumatic deformity, given a nearby chronic fracture of the fifth metatarsal). Mild osteoarthritis at the first metatarsophalangeal joint. Mild tarsometatarsal arthritis. 5. Left foot: Minimal degenerative change. > Interpreting Provider: Terrance Lyles MD on 12/15/2022 2:59 PM Narrative 12/15/2022 2:59 PM J2EE ENGINEER PROCEDURE: ??XR FOREARM LEFT 2VW, XR FOOT RIGHT 3VW OR MORE, XR FOOT LEFT 3VW OR MORE, XR WRIST RIGHT 3VW OR MORE, XR WRIST LEFT 3VW OR MORE, XR HAND RIGHT 3VW OR MORE, XR HAND LEFT 3VW OR MORE, DATE/TIME OF EXAM: ??12/15/2022 2:23 PM, LOCATION ??[facility] INDICATION: M05.9: Rheumatoid arthritis with positive rheumatoid factor, involving unspecified site ([facility]) ADDITIONAL CLINICAL INFORMATION: Ordering Provider Reason For Exam: Technologist Note: Additional: COMPARISON: Right and left hand radiographs dated 04/17/2019 ??. FINDINGS: Right hand: No acute fracture or dislocation. Moderate osteoarthritis at the first carpometacarpal joint. Minimal degenerative change at a few other joints. A small cortical defect at the base of the third proximal phalanx on the oblique view appears to represent a chronic erosion; a comparable oblique view was not performed on the last study for comparison. The bones are osteopenic. The soft tissues are normal. Left hand: No acute fracture or dislocation. Moderate osteoarthritis at the first carpometacarpal joint. The other joint spaces are normal. No erosions. Small calcifications near the fourth and fifth metacarpal heads. Mild swan-neck deformity of the fourth finger. The bones are osteopenic. The soft tissues are normal. Right wrist: No fracture or dislocation. Moderate osteoarthritis at the first carpometacarpal joint. Chronic deformity of the distal radius and the distal ulnar shaft consistent with healed fractures. A previously described chronic erosion in the ulnar styloid is no longer well visualized. No new erosions. The joint spaces are otherwise maintained. Osteopenia. The soft tissues are normal. Left wrist: No fracture or dislocation. Moderate osteoarthritis at the first carpometacarpal joint. No erosions. Osteopenia. The soft tissues are normal. Left forearm: There is no fracture of the radius or ulna. The bones are osteopenic. Small calcification anterior aspect of the elbow. Small osteophyte at the elbow. Right foot: No acute fracture or dislocation. Chronic deformity of the fifth metatarsal distal shaft consistent with a healed fracture. There is an erosion or possibly posttraumatic deformity in the fifth toe proximal phalanx head. No other erosions are seen. Mild osteoarthritis of the first metatarsophalangeal joint with hypertrophy at the medial aspect of the metatarsal head. The bones are osteopenic. Mild soft tissue swelling at the first metatarsophalangeal joint. Mild arthritis at the tarsometatarsal joints with osteophytes, sclerosis, mild cortical irregularity. Left foot: No fracture or dislocation. The joint spaces are normal. Mild degenerative change at the first metatarsophalangeal joint with cysts in the metatarsal head. No definite erosions. The bones are slightly osteopenic. The soft tissues are normal. Procedure Note Terrance Lyles MD - 12/15/2022 PROCEDURE: XR FOREARM LEFT 2VW, XR FOOT RIGHT 3VW OR MORE, XR FOOT LEFT 3VW OR MORE, XR WRIST RIGHT 3VW OR MORE, XR WRIST LEFT 3VW OR MORE, XRHAND RIGHT 3VW OR MORE, XR HAND LEFT 3VW OR MORE, DATE/TIME OF EXAM:12/15/2022 2:23 PM, LOCATION [facility] INDICATION: M05.9: Rheumatoid arthritis with positive rheumatoid factor, involving unspecified site ([facility]) ADDITIONAL CLINICAL INFORMATION: Ordering Provider Reason For Exam: Technologist Note: Additional: COMPARISON: Right and left hand radiographs dated 04/17/2019 . FINDINGS: Right hand: No acute fracture or dislocation. Moderate osteoarthritis at the first carpometacarpal joint. Minimal degenerative change at a few other joints.A small cortical defect at the base of the third proximal phalanx on the oblique view appears to represent a chronic erosion; a comparableoblique view was not performed on the last study for comparison. The bones are osteopenic. The soft tissues are normal. Left hand: No acute fracture or dislocation. Moderate osteoarthritis at the first carpometacarpal joint. The other joint spaces are normal. No erosions. Small calcifications near the fourth and fifth metacarpal heads. Mild swan-neck deformity of the fourth finger. The bones are osteopenic. The soft tissues are normal. Right wrist: No fracture or dislocation. Moderate osteoarthritis at the first carpometacarpal joint. Chronic deformity of the distal radius and the distal ulnar shaft consistent with healed fractures. A previouslydescribed chronic erosion in the ulnar styloid is no longer well visualized. Nonew erosions. The joint spaces are otherwise maintained. Osteopenia. Thesoft tissues are normal. Left wrist: No fracture or dislocation. Moderate osteoarthritis at the first carpometacarpal joint. No erosions. Osteopenia. The soft tissues are normal. Left forearm: There is no fracture of the radius or ulna. The bones are osteopenic.Small calcification anterior aspect of the elbow. Small osteophyte at theelbow. Right foot: No acute fracture or dislocation. Chronic deformity of the fifthmetatarsal distal shaft consistent with a healed fracture. There is an erosion or possibly posttraumatic deformity in the fifth toe proximal phalanx head.No other erosions are seen. Mild osteoarthritis of the first metatarsophalangeal joint with hypertrophy at the medial aspect of the metatarsal head. The bones are osteopenic. Mild soft tissue swelling atthe first metatarsophalangeal joint. Mild arthritis at the tarsometatarsal joints with osteophytes, sclerosis, mild cortical irregularity. Left foot: No fracture or dislocation. The joint spaces are normal. Milddegenerative change at the first metatarsophalangeal joint with cysts in themetatarsal head. No definite erosions. The bones are slightly osteopenic. The soft tissues are normal. Impression: 1. Right hand and wrist: Moderate osteoarthritis at the first carpometacarpal joint. Small chronic appearing erosion in the third proximal phalanx base. No other erosions. 2. Left hand and wrist: Moderate osteoarthritis at the first carpometacarpal joint. No erosions. 3. Left forearm: No acute osseous abnormality. 4. Right foot: Small erosion at the fifth toe proximal interphalangeal joint (versus posttraumatic deformity, given a nearby chronic fractureof the fifth metatarsal). Mild osteoarthritis at the firstmetatarsophalangeal joint. Mild tarsometatarsal arthritis. 5. Left foot: Minimal degenerative change. > Interpreting Provider: Terrance Lyles MD on 12/15/2022 2:59 PM Gerald Merchant MD DIAGNOSTIC IMAGING O RDERABLES * XR WRIST LEFT 3VW OR MORE (12/15/2022 2:23 PM J2EE ENGINEER) Anatomical Region Laterality Modality Wrist / Hand Radiographic Adelina ging 12/15/2022 2:45 PM J2EE ENGINEER Impressions 12/15/2022 2:59 PM J2EE ENGINEER Impression: 1. Right hand and wrist: Moderate osteoarthritis at the first carpometacarpal joint. Small chronic appearing erosion in the third proximal phalanx base. No other erosions. 2. Left hand and wrist: Moderate osteoarthritis at the first carpometacarpal joint. No erosions. 3. Left forearm: No acute osseous abnormality. 4. Right foot: Small erosion at the fifth toe proximal interphalangeal joint (versus posttraumatic deformity, given a nearby chronic fracture of the fifth metatarsal). Mild osteoarthritis at the first metatarsophalangeal joint. Mild tarsometatarsal arthritis. 5. Left foot: Minimal degenerative change. > Interpreting Provider: Terrance Lyles MD on 12/15/2022 2:59 PM Narrative 12/15/2022 2:59 PM J2EE ENGINEER PROCEDURE: ??XR FOREARM LEFT 2VW, XR FOOT RIGHT 3VW OR MORE, XR FOOT LEFT 3VW OR MORE, XR WRIST RIGHT 3VW OR MORE, XR WRIST LEFT 3VW OR MORE, XR HAND RIGHT 3VW OR MORE, XR HAND LEFT 3VW OR MORE, DATE/TIME OF EXAM: ??12/15/2022 2:23 PM, LOCATION ??[facility] INDICATION: M05.9: Rheumatoid arthritis with positive rheumatoid factor, involving unspecified site ([facility]) ADDITIONAL CLINICAL INFORMATION: Ordering Provider Reason For Exam: Technologist Note: Additional: COMPARISON: Right and left hand radiographs dated 04/17/2019 ??. FINDINGS: Right hand: No acute fracture or dislocation. Moderate osteoarthritis at the first carpometacarpal joint. Minimal degenerative change at a few other joints. A small cortical defect at the base of the third proximal phalanx on the oblique view appears to represent a chronic erosion; a comparable oblique view was not performed on the last study for comparison. The bones are osteopenic. The soft tissues are normal. Left hand: No acute fracture or dislocation. Moderate osteoarthritis at the first carpometacarpal joint. The other joint spaces are normal. No erosions. Small calcifications near the fourth and fifth metacarpal heads. Mild swan-neck deformity of the fourth finger. The bones are osteopenic. The soft tissues are normal. Right wrist: No fracture or dislocation. Moderate osteoarthritis at the first carpometacarpal joint. Chronic deformity of the distal radius and the distal ulnar shaft consistent with healed fractures. A previously described chronic erosion in the ulnar styloid is no longer well visualized. No new erosions. The joint spaces are otherwise maintained. Osteopenia. The soft tissues are normal. Left wrist: No fracture or dislocation. Moderate osteoarthritis at the first carpometacarpal joint. No erosions. Osteopenia. The soft tissues are normal. Left forearm: There is no fracture of the radius or ulna. The bones are osteopenic. Small calcification anterior aspect of the elbow. Small osteophyte at the elbow. Right foot: No acute fracture or dislocation. Chronic deformity of the fifth metatarsal distal shaft consistent with a healed fracture. There is an erosion or possibly posttraumatic deformity in the fifth toe proximal phalanx head. No other erosions are seen. Mild osteoarthritis of the first metatarsophalangeal joint with hypertrophy at the medial aspect of the metatarsal head. The bones are osteopenic. Mild soft tissue swelling at the first metatarsophalangeal joint. Mild arthritis at the tarsometatarsal joints with osteophytes, sclerosis, mild cortical irregularity. Left foot: No fracture or dislocation. The joint spaces are normal. Mild degenerative change at the first metatarsophalangeal joint with cysts in the metatarsal head. No definite erosions. The bones are slightly osteopenic. The soft tissues are normal. Procedure Note Terrance Lyles MD - 12/15/2022 PROCEDURE: XR FOREARM LEFT 2VW, XR FOOT RIGHT 3VW OR MORE, XR FOOT LEFT 3VW OR MORE, XR WRIST RIGHT 3VW OR MORE, XR WRIST LEFT 3VW OR MORE, XRHAND RIGHT 3VW OR MORE, XR HAND LEFT 3VW OR MORE, DATE/TIME OF EXAM:12/15/2022 2:23 PM, LOCATION [facility] INDICATION: M05.9: Rheumatoid arthritis with positive rheumatoid factor, involving unspecified site ([facility]) ADDITIONAL CLINICAL INFORMATION: Ordering Provider Reason For Exam: Technologist Note: Additional: COMPARISON: Right and left hand radiographs dated 04/17/2019 . FINDINGS: Right hand: No acute fracture or dislocation. Moderate osteoarthritis at the first carpometacarpal joint. Minimal degenerative change at a few other joints.A small cortical defect at the base of the third proximal phalanx on the oblique view appears to represent a chronic erosion; a comparableoblique view was not performed on the last study for comparison. The bones are osteopenic. The soft tissues are normal. Left hand: No acute fracture or dislocation. Moderate osteoarthritis at the first carpometacarpal joint. The other joint spaces are normal. No erosions. Small calcifications near the fourth and fifth metacarpal heads. Mild swan-neck deformity of the fourth finger. The bones are osteopenic. The soft tissues are normal. Right wrist: No fracture or dislocation. Moderate osteoarthritis at the first carpometacarpal joint. Chronic deformity of the distal radius and the distal ulnar shaft consistent with healed fractures. A previouslydescribed chronic erosion in the ulnar styloid is no longer well visualized. Nonew erosions. The joint spaces are otherwise maintained. Osteopenia. Thesoft tissues are normal. Left wrist: No fracture or dislocation. Moderate osteoarthritis at the first carpometacarpal joint. No erosions. Osteopenia. The soft tissues are normal. Left forearm: There is no fracture of the radius or ulna. The bones are osteopenic.Small calcification anterior aspect of the elbow. Small osteophyte at theelbow. Right foot: No acute fracture or dislocation. Chronic deformity of the fifthmetatarsal distal shaft consistent with a healed fracture. There is an erosion or possibly posttraumatic deformity in the fifth toe proximal phalanx head.No other erosions are seen. Mild osteoarthritis of the first metatarsophalangeal joint with hypertrophy at the medial aspect of the metatarsal head. The bones are osteopenic. Mild soft tissue swelling atthe first metatarsophalangeal joint. Mild arthritis at the tarsometatarsal joints with osteophytes, sclerosis, mild cortical irregularity. Left foot: No fracture or dislocation. The joint spaces are normal. Milddegenerative change at the first metatarsophalangeal joint with cysts in themetatarsal head. No definite erosions. The bones are slightly osteopenic. The soft tissues are normal. Impression: 1. Right hand and wrist: Moderate osteoarthritis at the first carpometacarpal joint. Small chronic appearing erosion in the third proximal phalanx base. No other erosions. 2. Left hand and wrist: Moderate osteoarthritis at the first carpometacarpal joint. No erosions. 3. Left forearm: No acute osseous abnormality. 4. Right foot: Small erosion at the fifth toe proximal interphalangeal joint (versus posttraumatic deformity, given a nearby chronic fractureof the fifth metatarsal). Mild osteoarthritis at the firstmetatarsophalangeal joint. Mild tarsometatarsal arthritis. 5. Left foot: Minimal degenerative change. > Interpreting Provider: Terrance Lyles MD on 12/15/2022 2:59 PM Gerald Merchant MD DIAGNOSTIC IMAGING O RDERABLES * XR FOREARM LEFT 2VW (12/15/2022 2:23 PM J2EE ENGINEER) Anatomical Region Laterality Modality Upper Extremity Radiographic Adelina ging 12/15/2022 2:45 PM J2EE ENGINEER Impressions 12/15/2022 2:59 PM J2EE ENGINEER Impression: 1. Right hand and wrist: Moderate osteoarthritis at the first carpometacarpal joint. Small chronic appearing erosion in the third proximal phalanx base. No other erosions. 2. Left hand and wrist: Moderate osteoarthritis at the first carpometacarpal joint. No erosions. 3. Left forearm: No acute osseous abnormality. 4. Right foot: Small erosion at the fifth toe proximal interphalangeal joint (versus posttraumatic deformity, given a nearby chronic fracture of the fifth metatarsal). Mild osteoarthritis at the first metatarsophalangeal joint. Mild tarsometatarsal arthritis. 5. Left foot: Minimal degenerative change. > Interpreting Provider: Terrance Lyles MD on 12/15/2022 2:59 PM Narrative 12/15/2022 2:59 PM J2EE ENGINEER PROCEDURE: ??XR FOREARM LEFT 2VW, XR FOOT RIGHT 3VW OR MORE, XR FOOT LEFT 3VW OR MORE, XR WRIST RIGHT 3VW OR MORE, XR WRIST LEFT 3VW OR MORE, XR HAND RIGHT 3VW OR MORE, XR HAND LEFT 3VW OR MORE, DATE/TIME OF EXAM: ??12/15/2022 2:23 PM, LOCATION ??[facility] INDICATION: M05.9: Rheumatoid arthritis with positive rheumatoid factor, involving unspecified site ([facility]) ADDITIONAL CLINICAL INFORMATION: Ordering Provider Reason For Exam: Technologist Note: Additional: COMPARISON: Right and left hand radiographs dated 04/17/2019 ??. FINDINGS: Right hand: No acute fracture or dislocation. Moderate osteoarthritis at the first carpometacarpal joint. Minimal degenerative change at a few other joints. A small cortical defect at the base of the third proximal phalanx on the oblique view appears to represent a chronic erosion; a comparable oblique view was not performed on the last study for comparison. The bones are osteopenic. The soft tissues are normal. Left hand: No acute fracture or dislocation. Moderate osteoarthritis at the first carpometacarpal joint. The other joint spaces are normal. No erosions. Small calcifications near the fourth and fifth metacarpal heads. Mild swan-neck deformity of the fourth finger. The bones are osteopenic. The soft tissues are normal. Right wrist: No fracture or dislocation. Moderate osteoarthritis at the first carpometacarpal joint. Chronic deformity of the distal radius and the distal ulnar shaft consistent with healed fractures. A previously described chronic erosion in the ulnar styloid is no longer well visualized. No new erosions. The joint spaces are otherwise maintained. Osteopenia. The soft tissues are normal. Left wrist: No fracture or dislocation. Moderate osteoarthritis at the first carpometacarpal joint. No erosions. Osteopenia. The soft tissues are normal. Left forearm: There is no fracture of the radius or ulna. The bones are osteopenic. Small calcification anterior aspect of the elbow. Small osteophyte at the elbow. Right foot: No acute fracture or dislocation. Chronic deformity of the fifth metatarsal distal shaft consistent with a healed fracture. There is an erosion or possibly posttraumatic deformity in the fifth toe proximal phalanx head. No other erosions are seen. Mild osteoarthritis of the first metatarsophalangeal joint with hypertrophy at the medial aspect of the metatarsal head. The bones are osteopenic. Mild soft tissue swelling at the first metatarsophalangeal joint. Mild arthritis at the tarsometatarsal joints with osteophytes, sclerosis, mild cortical irregularity. Left foot: No fracture or dislocation. The joint spaces are normal. Mild degenerative change at the first metatarsophalangeal joint with cysts in the metatarsal head. No definite erosions. The bones are slightly osteopenic. The soft tissues are normal. Procedure Note Terrance Lyles MD - 12/15/2022 PROCEDURE: XR FOREARM LEFT 2VW, XR FOOT RIGHT 3VW OR MORE, XR FOOT LEFT 3VW OR MORE, XR WRIST RIGHT 3VW OR MORE, XR WRIST LEFT 3VW OR MORE, XRHAND RIGHT 3VW OR MORE, XR HAND LEFT 3VW OR MORE, DATE/TIME OF EXAM:12/15/2022 2:23 PM, LOCATION [facility] INDICATION: M05.9: Rheumatoid arthritis with positive rheumatoid factor, involving unspecified site ([facility]) ADDITIONAL CLINICAL INFORMATION: Ordering Provider Reason For Exam: Technologist Note: Additional: COMPARISON: Right and left hand radiographs dated 04/17/2019 . FINDINGS: Right hand: No acute fracture or dislocation. Moderate osteoarthritis at the first carpometacarpal joint. Minimal degenerative change at a few other joints.A small cortical defect at the base of the third proximal phalanx on the oblique view appears to represent a chronic erosion; a comparableoblique view was not performed on the last study for comparison. The bones are osteopenic. The soft tissues are normal. Left hand: No acute fracture or dislocation. Moderate osteoarthritis at the first carpometacarpal joint. The other joint spaces are normal. No erosions. Small calcifications near the fourth and fifth metacarpal heads. Mild swan-neck deformity of the fourth finger. The bones are osteopenic. The soft tissues are normal. Right wrist: No fracture or dislocation. Moderate osteoarthritis at the first carpometacarpal joint. Chronic deformity of the distal radius and the distal ulnar shaft consistent with healed fractures. A previouslydescribed chronic erosion in the ulnar styloid is no longer well visualized. Nonew erosions. The joint spaces are otherwise maintained. Osteopenia. Thesoft tissues are normal. Left wrist: No fracture or dislocation. Moderate osteoarthritis at the first carpometacarpal joint. No erosions. Osteopenia. The soft tissues are normal. Left forearm: There is no fracture of the radius or ulna. The bones are osteopenic.Small calcification anterior aspect of the elbow. Small osteophyte at theelbow. Right foot: No acute fracture or dislocation. Chronic deformity of the fifthmetatarsal distal shaft consistent with a healed fracture. There is an erosion or possibly posttraumatic deformity in the fifth toe proximal phalanx head.No other erosions are seen. Mild osteoarthritis of the first metatarsophalangeal joint with hypertrophy at the medial aspect of the metatarsal head. The bones are osteopenic. Mild soft tissue swelling atthe first metatarsophalangeal joint. Mild arthritis at the tarsometatarsal joints with osteophytes, sclerosis, mild cortical irregularity. Left foot: No fracture or dislocation. The joint spaces are normal. Milddegenerative change at the first metatarsophalangeal joint with cysts in themetatarsal head. No definite erosions. The bones are slightly osteopenic. The soft tissues are normal. Impression: 1. Right hand and wrist: Moderate osteoarthritis at the first carpometacarpal joint. Small chronic appearing erosion in the third proximal phalanx base. No other erosions. 2. Left hand and wrist: Moderate osteoarthritis at the first carpometacarpal joint. No erosions. 3. Left forearm: No acute osseous abnormality. 4. Right foot: Small erosion at the fifth toe proximal interphalangeal joint (versus posttraumatic deformity, given a nearby chronic fractureof the fifth metatarsal). Mild osteoarthritis at the firstmetatarsophalangeal joint. Mild tarsometatarsal arthritis. 5. Left foot: Minimal degenerative change. > Interpreting Provider: Terrance Lyles MD on 12/15/2022 2:59 PM Gerald Merchant MD DIAGNOSTIC IMAGING O RDERABLES * PROC FIBROSCAN (12/15/2022 1:14 PM J2EE ENGINEER) Narrative Adriana Alexander RN - 12/15/2022 1:14 PM J2EE ENGINEER Adriana Alexander RN ? 12/15/2022 ??1:26 PM Diagnosis: Elevated LFT RN verified patient not , no implanted devices and NPO for prior 3 hours. Vital signs taken, procedure explained and consent signed. Date of Exam: 12/15/2022 Liver Stiffness: (LSM, kPa) median: ??7.7 IQR (interquartile range): ?? 1.2 IQR/Median% (ideally < 30%): ??16% CAP (controlled attenuation parameter): ??323 Technical Difficulty: None Ordering Provider: Dr. Thalia Dunlap Phone Fax Procedure Note Adriana Alexander RN - 12/15/2022 1:14 PM CST Diagnosis: Elevated LFT RN verified patient not , no implanted devices and NPO for prior 3hours. Vital signs taken, procedure explained and consent signed. Date of Exam: 12/15/2022 Liver Stiffness: (LSM, kPa) median: 7.7 IQR (interquartile range): 1.2 IQR/Median% (ideally < 30%): 16% CAP (controlled attenuation parameter): 323 Technical Difficulty: None Ordering Provider: Dr. Thalia Dunlap Phone Fax Thalia Dunlap MD PROCEDURE/MINOR SURG ICAL ORDERABLES * URIC ACID BLOOD (09/22/2022 8:24 AM J2EE ENGINEER) Only the most recent of2 resultswithin the time period is included. Uric Acid 3.4 3.0 - 7.2 mg/dL [facility] INSURANCE BILL Comment: ?Therapeutic target for gout patients: <6.0 FASTING Blood BLOOD SPECIMEN / Unknown 09/22/2022 8:24 AM J2EE ENGINEER 09/22/2022 Narrative Resulting Agency Comment Lab Testing performed at: [facility] [address] [facility] ??Pending sale to [facility] [phone] Gerald Merchant MD LAB - CHEMISTRY ROBERT MAY [facility] INSURANCE BILL [address] [place] [address] * ABDOMEN LIMITED (01/19/2022 10:45 AM CDT) Anatomical Region Laterality Modality Abdomen Ultrasound 01/19/2022 10:2 1 AM CDT Impressions 01/19/2022 11:20 AM CDT IMPRESSION: 1. Mild hepatic steatosis. No discrete hepatic lesion or intrahepatic biliary dilation. Patent hepatic vasculature. 2. Cholelithiasis. 3. Splenomegaly. Dictated by Ernestina Hanley MD (Resident). I, Dr. EDNA WANG have personally reviewed and interpreted this examination/study. This report was electronically signed by EDNA WANG ??on 01/19/2022 11:20 AM . 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 FINDINGS: The liver is slightly increased in echogenicity. The hepatic surface contour is smooth. No discrete hepatic mass or intrahepatic biliary dilation is seen. Color Doppler evaluation demonstrates patency of the hepatic and portal veins. Multiple gallstones measuring up to 1.2 cm are seen. No pericholecystic fluid is seen. The gallbladder wall is normal in thickness, measuring 1.5 mm. Sonographic Culver's sign is negative. The common bile duct is nondilated, measuring 3 mm. The right kidney measures 10.5 x 4.0 x 5.2 cm. There is a 1.5 x 1.5 x 1.4 cm cyst in the superior pole of right kidney. Limited views of the right kidney reveal no evidence of nephrolithiasis or hydronephrosis. The spleen measures 14.5 cm in length. Multiple calcified granulomas in the spleen are incidentally noted. The visible pancreas is normal in echogenicity. No ascites is present. 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 FINDINGS: The liver is slightly increased in echogenicity. The hepatic surface contour is smooth. No discrete hepatic mass or intrahepatic biliary dilation is seen. Color Doppler evaluation demonstrates patency of the hepatic and portal veins. Multiple gallstones measuring up to 1.2 cm are seen. No pericholecystic fluid is seen. The gallbladder wall is normal in thickness, measuring1.5 mm. Sonographic Culver's sign is negative. The common bile duct is nondilated, measuring 3 mm. The right kidney measures 10.5 x 4.0 x 5.2 cm. There is a 1.5 x 1.5 x1.4 cm cyst in the superior pole of right kidney. Limited views of the right kidney reveal no evidence of nephrolithiasis or hydronephrosis. Thespleen measures 14.5 cm in length. Multiple calcified granulomas in the spleen are incidentally noted. The visible pancreas is normal in echogenicity.No ascites is present. IMPRESSION: 1. Mild hepatic steatosis. No discrete hepatic lesion or intrahepatic biliary dilation. Patent hepatic vasculature. 2. Cholelithiasis. 3. Splenomegaly. Dictated by Ernestina Hanley MD (Resident). I, Dr. EDNA WANG have personally reviewed and interpreted this examination/study. This report was electronically signed by EDNA WANG on 01/19/2022 11:20 AM . Gerald Merchant MD ORDERABLES * BONE DENSITY AXIAL SKELETON(1OR MORE SITES)[id number] (05/13/2021 8:11 AM CDT) Anatomical Region Laterality Modality Other 05/13/2021 2:47 PM CDT Narrative 05/13/2021 3:03 PM CDT Examination: Dual energy x-ray absorptiometry of the hip. Clinical Indication: M05.80: 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 erosive rheumatoid arthritis Z13.820: Osteoporosis screening Findings: Detailed data from the exam is sent separately to the ordering physician and is also available on Streak, the Radiology Department's computerized picture archive system. [...] ordering physician and is also available on Stre[employer], the Radiology Department's computerized picture archive system. [...] PM . Gerald Merchant MD DEXA ORDERABLES * URINALYSIS MICROSCOPIC ONLY REFLEXED (09/01/2020 11:27 AM J2EE ENGINEER) Only the most recent of11 resultswithin the time period is included. WBC UA 0-5 0 - 5 /hpf [facility] INSURANCE BILL RBC UA 0-2 0 - 2 /hpf [facility] INSURANCE BILL Epithelial Cells (non renal) 0-10 0 - 10 /hpf [facility] INSURANCE BILL Epithelial Cells (renal) NOT NEEDED [facility] INSURANCE BILL Comment:Ancillary determined the test is not needed. Casts ua NOT NEEDED [facility] INSURANCE BILL Comment:Ancillary determined the test is not needed. Casts UA NOT NEEDED [facility] INSURANCE BILL Comment:Ancillary determined the test is not needed. Crystals UA NOT NEEDED [facility] INSURANCE BILL Comment:Ancillary determined the test is not needed. Crystals UA NOT NEEDED [facility] INSURANCE BILL Comment:Ancillary determined the test is not needed. Mucus UA Present Not Estab. [facility] INSURANCE BILL Bacteria UA None seen None seen/Few [facility] INSURANCE BILL Yeast UA NOT NEEDED [facility] INSURANCE BILL Comment:Ancillary determined the test is not needed. Trichomonas UA NOT NEEDED [facility] INSURANCE BILL Comment:Ancillary determined the test is not needed. Comment Urine NOT NEEDED [facility] INSURANCE BILL Comment:Ancillary determined the test is not needed. 09/01/2020 11:2 7 AM J2EE ENGINEER 09/01/2020 Narrative Resulting Agency Comment [facility] [address] [facility] ??Pending sale to [facility] [phone] Tanya Blue DO LAB - URINALYSIS ORD ERABLES [facility] INSURANCE BILL [address] [place] [address] * (ABNORMAL) CULTURE URINE COMPREHENSIVE (05/06/2020 7:53 AM CDT) Only the most recent of5 resultswithin the time period is included. Urine Culture Comprehensive Final report(A) [facility] INSURANCE BILL Result 1 Klebsiella pneumoniae(A) [facility] INSURANCE BILL Comment: 25,000-50,000 colony forming units per mL Cefazolin <=4 ug/mL Cefazolin with an LEVY <=16 predicts susceptibility to the oral agents cefaclor, cefdinir, cefpodoxime, cefprozil, cefuroxime, cephalexin, and loracarbef when used for therapy of uncomplicated urinary tract infections due to E. coli, Klebsiella pneumoniae, and Proteus mirabilis. Result 2 [facility] INSURANCE BILL Comment: Mixed urogenital yaw 10,000-25,000 colony forming units per mL Antimicrobial Susceptibility [facility] INSURANCE BILL Comment: ? S = Susceptible; I = Intermediate; R = Resistant ? P = Positive; N = Negative ?MICS are expressed in micrograms per mL ?? Antibiotic ? RSLT#1 ?RSLT#2 ?RSLT#3 ?RSLT#4 Amoxicillin/Clavulanic Acid ?S<=2 Ampicillin ? R =R Cefepime ? S<=0.12 Ceftriaxone ?S<=0.25 Cefuroxime ? S<=1 Ciprofloxacin ?S<=0.25 Ertapenem ?S<=0.12 Gentamicin ? S<=1 Imipenem ? S<=0.25 Levofloxacin ? S<=0.12 Meropenem ?S<=0.25 Nitrofurantoin ? I =64 Piperacillin/Tazobactam ?S<=4 Tetracycline ? S<=1 Tobramycin ? S<=1 Trimethoprim/Sulfa ? S<=20 FASTING 05/06/2020 7:53 AM CDT 05/06/2020 Narrative Resulting Agency Comment Lab Testing performed at: [facility] [address] ??Pending sale to [facility] [phone] Tanya Blue DO LAB - MICROBIOLOGY O RDERABLES [facility] INSURANCE BILL [address] [place] [address] * XR HAND RIGHT 2VW (04/17/2019 8:38 AM CDT) Anatomical Region Laterality Modality Wrist / Hand Radiographic Adelina ging 04/17/2019 8:39 AM CDT Impressions 04/17/2019 9:16 AM CDT Impression: 1. Right hand: Interval healing of erosions at the ulnar styloid process. No new erosions. Mild osteoarthritis. New fracture of the tuft of the third distal phalanx since 2016. This is age-indeterminate and could be subacute. Please correlate with history and physical examination. 2. Left hand: Osteoarthritis, greatest at the first carpometacarpal joint. No erosions identified. Dictated by Sudhir Means MD (Resident) I, Dr. TERRANCE LYLES MD have personally reviewed and interpreted this examination/study. This report was electronically signed by TERRANCE LYLES MD ??on 04/17/2019 9:16 AM . Narrative 04/17/2019 9:16 AM CDT Exam: 1.XR HAND RIGHT 2VW 2.XR HAND LEFT 2VW Date: 04/17/2019 8:39 AM History: ??eval for erosive disease, history of RF, CCP Comparison: Radiographs of the right hand and the left hand dated 2016. Findings: Right hand: The erosions that were previously seen at the ulnar styloid process are less conspicuous on today's examination consistent with partial healing. No additional erosions are identified. There is mild osteoarthritis at a few joints. A fracture of the tuft of the third distal phalanx is new when compared to the prior examination. No surrounding soft tissue swelling is seen. Left hand: No acute fracture or dislocation is seen. Generally mild osteoarthritis is seen at a few joints, greatest at the first carpometacarpal joint where it is moderate. No surrounding soft tissue swelling is seen. Procedure Note Terrance Lyles MD - 04/17/2019 Exam: 1.XR HAND RIGHT 2VW 2.XR HAND LEFT 2VW Date: 04/17/2019 8:39 AM History: eval for erosive disease, history of RF, CCP Comparison: Radiographs of the right hand and the left hand datedOct2015. Findings: Right hand: The erosions that were previously seen at the ulnar styloid process are less conspicuous on today's examination consistent with partial healing. No additional erosions are identified. There is mild osteoarthritis at a few joints. A fracture of the tuft of the third distal phalanx is newwhen compared to the prior examination. No surrounding soft tissue swellingis seen. Left hand: No acute fracture or dislocation is seen. Generally mild osteoarthritisis seen at a few joints, greatest at the first carpometacarpal joint whereit is moderate. No surrounding soft tissue swelling is seen. Impression: 1. Right hand: Interval healing of erosions at the ulnar styloidprocess. No new erosions. Mild osteoarthritis. New fracture of the tuft of the third distal phalanx since 2016. This is age-indeterminate andcould be subacute. Please correlate with history and physical examination. 2. Left hand: Osteoarthritis, greatest at the first carpometacarpaljoint. No erosions identified. Dictated by Sudhir Means MD (Resident) I, Dr. TERRANCE LYLES MD have personally reviewed and interpreted this examination/study. This report was electronically signed by TERRANCE LYLES MD on04/17/2019 9:16 AM . Tanya Blue DIAGNOSTIC IMAGING O RDERABLES * XR HAND LEFT 2VW (04/17/2019 8:38 AM CDT) Anatomical Region Laterality Modality Wrist / Hand Radiographic Adelina ging 04/17/2019 8:39 AM CDT Impressions 04/17/2019 9:16 AM CDT Impression: 1. Right hand: Interval healing of erosions at the ulnar styloid process. No new erosions. Mild osteoarthritis. New fracture of the tuft of the third distal phalanx since 2016. This is age-indeterminate and could be subacute. Please correlate with history and physical examination. 2. Left hand: Osteoarthritis, greatest at the first carpometacarpal joint. No erosions identified. Dictated by Sudhir Means MD (Resident) IDr. TERRANCE MD have personally reviewed and interpreted this examination/study. This report was electronically signed by TERRANCE LYLES MD ??on 04/17/2019 9:16 AM . Narrative 04/17/2019 9:16 AM CDT Exam: 1.XR HAND RIGHT 2VW 2.XR HAND LEFT 2VW Date: 04/17/2019 8:39 AM History: ??eval for erosive disease, history of RF, CCP Comparison: Radiographs of the right hand and the left hand dated 2016. Findings: Right hand: The erosions that were previously seen at the ulnar styloid process are less conspicuous on today's examination consistent with partial healing. No additional erosions are identified. There is mild osteoarthritis at a few joints. A fracture of the tuft of the third distal phalanx is new when compared to the prior examination. No surrounding soft tissue swelling is seen. Left hand: No acute fracture or dislocation is seen. Generally mild osteoarthritis is seen at a few joints, greatest at the first carpometacarpal joint where it is moderate. No surrounding soft tissue swelling is seen. Procedure Note Terrance Lyles MD - 04/17/2019 Exam: 1.XR HAND RIGHT 2VW 2.XR HAND LEFT 2VW Date: 04/17/2019 8:39 AM History: eval for erosive disease, history of RF, CCP Comparison: Radiographs of the right hand and the left hand datedOct2015. Findings: Right hand: The erosions that were previously seen at the ulnar styloid process are less conspicuous on today's examination consistent with partial healing. No additional erosions are identified. There is mild osteoarthritis at a few joints. A fracture of the tuft of the third distal phalanx is newwhen compared to the prior examination. No surrounding soft tissue swellingis seen. Left hand: No acute fracture or dislocation is seen. Generally mild osteoarthritisis seen at a few joints, greatest at the first carpometacarpal joint whereit is moderate. No surrounding soft tissue swelling is seen. Impression: 1. Right hand: Interval healing of erosions at the ulnar styloidprocess. No new erosions. Mild osteoarthritis. New fracture of the tuft of the third distal phalanx since 2016. This is age-indeterminate andcould be subacute. Please correlate with history and physical examination. 2. Left hand: Osteoarthritis, greatest at the first carpometacarpaljoint. No erosions identified. Dictated by Sudhir Means MD (Resident) I, Dr. TERRANCE LYLES MD have personally reviewed and interpreted this examination/study. This report was electronically signed by TERRANCE LYLES MD on04/17/2019 9:16 AM . Tanya Blue DO DIAGNOSTIC IMAGING O RDERABLES * HEPATITIS C AB W/RFLX TO HCV RNA QN PCR (08/15/2016 8:47 AM CDT) Hepatitis C Antibody NON-REACTI VE NON-REACT ANA [facility] Signal/Cutoff 0.01 <1.00 [facility] Comment: Test Performed at: [facility] [id number] [place], [place] ??[phone] GARRET ROLDAN DO,MPH 08/15/2016 8:47 AM CDT 08/15/2016 8:47 AM CDT Arabella Bose MD LAB - CHEMISTRY O RDWHIT Performing Organization Address City/[facility]/ZIP Co de Phone Number [facility]) * SS-B (SJOGRENS'S) ANTIBODY (08/15/2016 8:45 AM CDT) Sjogren's Antibodies (SSB) <1.0 NEG <1.0 NEG AI [facility]) Comment: Test Performed at: [employer] [employer] [address] [place], [place] ??[address] GARRET ROLDAN DO,MPH Blood specimen (specimen) BLOOD SPECIMEN / Unknown 08/15/2016 8:45 AM CDT 08/15/2016 8:46 AM CDT Arabella Bose MD LAB - CHEMISTRY O RDERACHAPIS [facility]) * SS-A (SJOGREN'S) ANTIBODY (08/15/2016 8:45 AM CDT) Pathologist [facility] Sjogren's Antibodies (SSA) <1.0 NEG <1.0 NEG AI [facility]) Comment: Test Performed at: [email or web address] ??[phone] GARRET ROLDAN DO,MPH Blood specimen (specimen) BLOOD SPECIMEN / Unknown 08/15/2016 8:45 AM CDT 08/15/2016 8:46 AM CDT Arabella Bose MD LAB - CHEMISTRY O RDERABLES [facility] * VITAMIN D 25-HYDROXY (08/15/2016 8:45 AM CDT) Pathologist [facility] Vitamin D, 25 Hydroxy Total 31 30 - 100 ng/mL [facility]) Comment: Vitamin D Status ? 25-OH Vitamin D: Deficiency: ?<20 ng/mL Insufficiency: ? 20 - 29 ng/mL Optimal: ? > or = 30 ng/mL For 25-OH Vitamin D testing on patients on D2-supplementation and patients for whom quantitation of D2 and D3 fractions is required, the QuestAssureD(TM) 25-OH VIT D, (D2,D3), LC/MS/MS is recommended: order code 66741 (patients >2yrs). For more information on this test, go to: http://education.[employer]/faq/OKC611 (This link is being provided for informational/educational purposes only.) REPORT COMMENT: ROUTE TO PCP, LIAN SOLOMON, ; SPECIMEN TYPE->URINE; Test Performed at: [facility] [address] ??[phone] GARRET ROLDAN DO,MPH Blood specimen (specimen) BLOOD SPECIMEN / Unknown 08/15/2016 8:45 AM CDT 08/15/2016 8:46 AM CDT Arabella Bose MD LAB - CHEMISTRY O RDERABLES Performing Organization Address [facility]/ZIP Co de Phone Number [facility] * (ABNORMAL) RHEUMATOID ARTHRITIS PANEL (08/15/2016 8:45 AM CDT) Rheumatoid Factor 173(H) <14 IU/mL [facility]) Cyclic Citrullinated Peptide Antibody >250(H) UNITS [facility]) Comment: Reference Range Negative: ?<20 Weak Positive: ? 20-39 Moderate Positive: ?? 40-59 Strong Positive: ? >59 Interpretation Consistent with rheumatoid arthritis in a patient with polyarthritis. In early RA, these [facility]) Interpretation positive test results for both RF and anti-CCP are predictive of progressive joint [facility]) Interpretation destruction. [facility] Comment: Test Performed at: [email or web address] ??[phone] GARRET ROLDAN DO,MPH 08/15/2016 8:45 AM CDT 08/15/2016 8:46 AM CDT Arabella Bose MD LAB - SEROLOGY OR DERABLES Performing Organization Address [facility] Co de Phone Number [facility]) Care Teams [employer] Relationship Specialty Start Date End Date Eliana Mcneal [address] [place] [address] PCP - General 07/10/24
--- OUTSIDE RECORDS SUMMARY | 2024-11-09 23:13 | XMS_ITS | Encounter Summary ---
Author Organization [facility] Address [address] [place] [address] Care Team Providers Care Classroom Instructor Name Role Phone Elizabet Eliana Primary Care Provider [phone] Reason for Referral * Evaluate & Treat (Routine) - Closed Specialty Diagnoses / Procedures Referred By Khoa soria Referred To Contact Nephrology Diagnoses Chronic kidney disease, unspecified CKD stage Lonnie Tai MD [address] [place] [address] [facility] [address] [place] [address] Referral ID Status Reason Start Date Expiration Date V isits Requested Visits Authorized [id number] Closed Specialty Services Required 08/30/2024 08/30/2025 1 1 S * Radiology Services (Routine) - Closed Specialty Diagnoses / Procedures Referred By Khoa soria Referred To Contact Ultrasound Diagnoses Chronic kidney disease, unspecified CKD stage Procedures US Retroperitoneal Complete Lonnie Tai MD [address] [place] [address] Referral ID Status Reason Start Date Expiration Date Visits Re quested Visits Authorized [id number] Closed 08/30/2024 08/30/2025 1 1 S Reason for Visit * Reason Onset Date Comments Update 08/30/2024 Encounter Details Date Type Department Care Team (Late st Contact Info) Description 08/30/2024 Telephone [facility] - Rheumatology [address] [place] [phone] Lonnie Tai MD [address] [facility] [place] [address] Update Social History Tobacco Use Types Packs/Day Years [...] encounter Miscellaneous Notes * Telephone Encounter - Lonnie Tai MD - 08/30/2024 12:29 PM CRTTS Spoke with patient on the phone about updated Cr. 1.4. Will order renal ultrasound and send to nephrology. Also noted acute drop in hb (pt not symptomatic, has not noted blood loss), leukocytosis, along with low sodium. Follows with GI. Pt will continue to hold diclofenac in the meantime. Labs will need to rechecked. S documented in this encounter Plan of Treatment Upcoming Encounters Date Type Department Care Team (Late Contact Info) Description 01/09/2025 2:00 PM CDT Office Visit [facility] - GI [address] [place] [phone] Thalia Dunlap MD [address] [facility] [address] [place] [phone] 01/09/2025 2:30 PM CDT Office Visit [facility] - GI [address] [place] [phone] Matias Lewis III, MD [address] [place] [address] [address] [place] [address] 02/25/2025 2:30 PM CDT Office Visit [facility] - Rheumatology [address] [place] [address] Lonnie Tai MD [address] [facility] [place] [address] Scheduled Orders Name Type Priority Associated Diagnoses Orde r Schedule US Retroperitoneal Complete Imaging Routine Chronic kidney disease, unspecified CKD stage 1 Occurrences starting 08/30/2024 until 08/30/2025 Scheduled Referrals Name Type Priority Associated Diagnoses Order Schedule Ref to Nephrology - [facility] Outpatient Referral Routine Chronic kidney disease, unspecified CKD stage 1 Occurrences starting 08/30/2024 until 08/30/2025 documented as of this encounter Visit Diagnoses Diagnosis Chronic kidney disease, unspecified CKD stage- Primary documented in this encounter Care Teams Classroom Instructor Relationship Specialty Start Date End Date Eliana Mcneal [address] [place] [address] PCP - General 07/10/24 documented as of this encounter
--- OUTSIDE RECORDS SUMMARY | 2024-11-09 23:13 | XMS_ITS | Referral Summary ---
Author Organization [facility] Address [address] [facility] [place] [address] Care Team Providers Care Control Chemist Name Role Phone Eliana Mcneal Primary Care Provider [phone] Source Comments [facility],non-owned Affiliates and Associated Physician Practices is amultiple site organization consisting of ambulatory clinics and hospital sitesin [place], [place], [place] and [place]. This disclosure is being madepursuant to the Care Everywhere program and may not contain all information available regarding this patient. Last updated 18.[facility] Encounters Date Type Department Care Team Description 10/07/2024 Refill [facility] - Rheumatology [address] [place] [phone] Lonnie Tai MD Refill Request 08/30/2024 Telephone [facility] - Rheumatology [address] [place] [phone] Lonnie Tai MD Update 08/29/2024 Refill [facility] - Rheumatology [address] [place] [phone] Lonnie Tai MD Refill Request 08/27/2024 3:34 PM [facility] - 08/27/2024 11:59 PM [facility] Hospital Encounter [facility] DRAW [address]ATION [address] [place] [address] Discharge Disposition: Home or Self Care 08/27/2024 3:34 PM OFFAL [facility] - 08/27/2024 11:59 PM [facility] Hospital Encounter [facility] OP [address] [place] [address] Lonnie Tai MD Discharge Disposition: Home or Self Care 08/27/2024 3:00 PM [facility]AL [facility] Office Visit [facility] - Rheumatology [address] [facility], [place] [address] Lonnie Tai MD 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 erosive rheumatoid arthritis (HCC) (Primary Dx); 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 arthritis (HCC); Therapeutic drug monitoring; High risk medication use; Rheumatoid arthritis involving multiple joints (HCC) 08/23/2024 Orders Only [facility] - Rheumatology [address] [place] [phone] Dennis Davidson MD from Last 3 Months Allergies Active Allergy Reactions Criticality Noted Date [...] Active vitamin D, ergocalciferol, (Drisdol) 1.25 MG (97217 UT) capsule Take 1 (one) capsule by mouth every 7 days 10/06/2022 Active cyanocobalamin (Vitamin B-12) injection Inject 1,000 (one thousand) mcg subcutaneously every 30 days 03/03/2023 Active HYDROcodone-aceta minophen ([place]) 5-325 MG tablet Take 1 (one) tablet [...] Rheumatoid arthritis with rheumatoid factor 04/23 Other long term care pharmacist (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 7 Encounter for therapeutic drug level monitoring 05/12/2017 Immunizations Name Administration Dates Next Due Dominic Gusman primary monova lent 12+ yr 0.5mL 01/01/2021 [...] Comments Blood Pressure 153/79 08/27/2024 3:05 PM [facility] Pulse 95 08/27/2024 3:05 PM [facility] Temperature 36.8 ??C (98.2 ??F) 08/27/2024 3:05 PM CS T Respiratory Rate 18 08/11/2017 1:54 PM CDT Oxygen Saturation 98% 08/27/2024 3:05 PM [facility] Inhaled Oxygen Concentration - - Weight 76.1 kg (167 lb 12.8 oz) 08/27/2024 3:05 PM [facility] Height 170.2 cm (5' 7 ) 08/27/2024 3:05 PM [facility] Body Mass Index 26.28 08/27/2024 3:05 PM [facility] Plan of Treatment Upcoming Encounters Date Type Department Care Team (Late st Contact Info) Description 01/09/2025 2:00 PM CDT Office Visit [facility] - [address], [place] [phone] Thalia Dunlap MD [address] [place] [address] [address] [place] [phone] 01/09/2025 2:30 PM CDT Office Visit [facility] - [address], [place] [phone] Matias Lewis III, MD [address] [place] [address] [address] [place] [phone] 02/25/2025 2:30 PM CDT Office Visit [facility] - Rheumatology [address] [facility] [place] [phone] Lonnie Tai MD [address] [facility] [place] [address] Procedures Procedure Name Priority Date/Time Associated Diagnosis Comments PROTEIN CREATININE RATIO URINE RANDOM PNL Routine 08/27/2024 4:00 PM [facility] 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 erosive rheumatoid arthritis (HCC) 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 arthritis (HCC) Therapeutic drug monitoring High risk medication use Rheumatoid arthritis involving multiple joints (HCC) URINALYSIS W/MICROSCOPIC REFLEX TO CULTURE Routine 08/27/2024 4:00 PM [facility] 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 erosive rheumatoid arthritis (HCC) 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 arthritis (HCC) Therapeutic drug monitoring High risk medication use Rheumatoid arthritis involving multiple joints (HCC) HEPATITIS B SURFACE ANTIGEN W RFLX CONFIRMATION Routine 08/27/2024 3:52 PM [facility] 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 erosive rheumatoid arthritis (HCC) 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 arthritis (HCC) Therapeutic drug monitoring High risk medication use Rheumatoid arthritis involving multiple joints (HCC) HEPATITIS B SURFACE ANTIBODY Routine 08/27/2024 3:52 PM [facility] 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 erosive rheumatoid arthritis (HCC) 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 arthritis (HCC) Therapeutic drug monitoring High risk medication use Rheumatoid arthritis involving multiple joints (HCC) HEPATITIS B CORE ANTIBODY TOTAL Routine 08/27/2024 3:52 PM [facility] 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 erosive rheumatoid arthritis (HCC) 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 arthritis (HCC) Therapeutic drug monitoring High risk medication use Rheumatoid arthritis involving multiple joints (HCC) QUANTIFERON-TB GOLD PLUS 4-TUBE Routine 08/27/2024 3:52 PM [facility] 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 erosive rheumatoid arthritis (HCC) 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 arthritis (HCC) Therapeutic drug monitoring High risk medication use Rheumatoid arthritis involving multiple joints (HCC) CK BLOOD Routine 08/27/2024 3:52 PM [facility] 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 arthritis (HCC) Therapeutic drug monitoring ALDOLASE Routine 08/27/2024 3:52 PM [facility] 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 arthritis (HCC) Therapeutic drug monitoring RHEUMATOID FACTOR BLOOD QUANTITATIVE Routine 08/27/2024 3:52 PM [facility] 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 arthritis (HCC) Therapeutic drug monitoring CYCLIC CITRULLINATED PEPTIDE(CCP) AB IGG Routine 08/27/2024 3:52 PM [facility] 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 arthritis (HCC) Therapeutic drug monitoring ERYTHROCYTE SEDIMENTATION RATE Routine 08/27/2024 3:52 PM [facility] 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 arthritis (HCC) Therapeutic drug monitoring C-REACTIVE PROTEIN Routine 08/27/2024 3: 52 PM [facility] 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 arthritis (HCC) Therapeutic drug monitoring COMPREHENSIVE METABOLIC PANEL Routine 08/27/2024 3:52 PM [facility] 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 arthritis (HCC) Therapeutic drug monitoring CBC W AUTO DIFFERENTIAL Routine 08/27/2024 3:52 PM [facility] 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 arthritis (HCC) Therapeutic drug monitoring XR CHEST 2VW Routine 08/27/2024 3:35 PM [facility] 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 erosive rheumatoid arthritis (HCC) 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 [...] W/MICROSCOPIC REFLEX TO CULTURE (08/27/2024 4:00 PM OFFAL [facility]) Color UA Straw Straw, Yellow 08/27/2024 4:45 PM [facility]AL [facility] Clarity UA Clear Clear 08/27/2024 4:45 PM [facility] Specific [place] UA 1.002(L) 1.005 - 1.030 08/27/2024 4:45 PM [facility] pH UA 6.0 5.0 - 8.0 pH 08/27/2024 4:45 PM [facility] Protein UA Negative Negative 08/27/2024 4:45 PM [facility] Glucose UA 3+(A) Negative 08/27/2024 4:45 PM [facility] Ketone UA Negative Negative 08/27/2024 4:45 PM [facility] Bilirubin UA Negative Negative 08/27/2024 4:45 PM [facility] Blood UA Negative Negative 08/27/2024 4:45 PM [facility] Nitrite UA Negative Negative 08/27/2024 4:45 PM [facility] Leukocyte Esterase Negative Negative 08/27/2024 4:45 PM [facility] Urobilinogen UA Negative Negative mg/dL 08/27/2024 4:45 PM [facility] RBC UA None Seen None Seen, 0-2, 3-5 /HPF 08/27/2024 4:45 PM [facility] WBC UA 0-5 None Seen, 0-5 /HPF 08/27/2024 4:45 PM [facility] Bacteria UA Trace(A) None /HPF 08/27/2024 4:45 PM [facility] Squamous Epithelial Cells UA 0-2 None Seen, 0-2, 3-5 /HPF 08/27/2024 4:45 PM [facility] Urine URINE SPECIMEN OBTAINED BY CLEAN CATCH PROCEDURE / Unknown Collection / Unknown 08/27/2024 4:00 PM [facility] 08/27/2024 4:29 PM [facility] - 08/27/2024 4:45 PM OFFAL [facility] Culture Not Indicated Lonnie Tai MD LAB - URINALYSIS ORDERABLES [facility] [address] [place] [phone], [facility] [phone] * PROTEIN CREATININE RATIO URINE RANDOM PNL (08/27/2024 4:00 PM OFFAL [facility]) [facility] Protein Urine <7 Not Established mg/dL 08/27/2024 5:[address] [facility] Creatinine Urine 26.51 Not Established mg/dL 08/27/2024 5:18 PM [facility] Protein/Creatinin e Ratio Urine 08/27/2024 5:[address] [facility] Comment:Unable to calculate ratio because the analyte concentration is outside the instrument measuring range. Urine URINE SPECIMEN OBTAINED BY CLEAN CATCH PROCEDURE / Unknown Collection / Unknown 08/27/2024 4:00 PM [facility] 08/27/2024 4:29 PM [facility] Lonnie Tai MD LAB - URINE CHEM ISTRY ORDERABLES [facility] [address] [place] [phone], [facility] [phone] * QUANTIFERON-TB GOLD PLUS 4-TUBE (08/27/2024 3:52 PM OFFAL [facility]) [facility] QuantiFERON Mitogen Minus NIL 9.96 IU/mL 08/29/2024 8:21 PM OFFAL [facility]) QuantiFERON Nil Value 0.04 IU/mL 08/29/2024 8:21 PM [facility]) QuantiFERON Plus TB1 Minus NIL 0.01 <=0.34 IU/mL 08/29/2024 8:21 PM [facility]) QuantiFERON Plus TB2 Minus NIL 0.00 <=0.34 IU/mL 08/29/2024 8:21 PM [facility]) QuantiFERON-TB Gold Plus Negative Negative 08/29/2024 8:21 PM [facility]AL [facility] ([facility]) Comment: INTERPRETIVE INFORMATION:Quantiferon TB Gold Plus Interferon [...] Mycobacterium tuberculosis Infection -- [place], 2010 (http://www.cdc.gov/mmwr/preview/mmwrhtml/be3096e0.htm), for more information concerning test performance in low-prevalence populations and use in occupational screening. Performed By: [employer] [address] [place], [place] [id number] Train Master: Kleber Choudhary MD, PhD CLIA Number: [id number] Blood BLOOD SPECIMEN / Unknown Lab Venipuncture / Unknown 08/27/2024 3:52 PM [facility] 08/27/2024 4:38 PM [facility]AL [facility] Lonnie Tai MD LAB - CHEMISTRY ORDERABLES Performing Organization Address City/[facility]/ZIP Co de Phone Number [facility] ([facility]) [address] [place] [id number] * RHEUMATOID FACTOR BLOOD QUANTITATIVE (08/27/2024 3:52 PM OFFAL [facility]) Rheumatoid Factor <15 <30 IU/mL 08/27/2024 5:[address] [facility] Rheumatoid Factor Screen Negative Negative 08/27/2024 5:[address] [facility] Blood BLOOD SPECIMEN / Unknown Lab Venipuncture / Unknown 08/27/2024 3:52 PM [facility]AL [facility] 08/27/2024 4:29 PM OFFAL [facility]TRY Lonnie Tai MD LAB - CHEMISTRY ORDERABLES [address] [address], [facility] [phone] * C-REACTIVE PROTEIN (08/27/2024 3:52 PM OFFAL [facility]ER POULTRY) [facility] C-Reactive Protein <0.5 <=0.5 mg/dL 08/27/2024 5:[address] [facility] Blood BLOOD SPECIMEN / Unknown Lab Venipuncture / Unknown 08/27/2024 3:52 PM [facility] 08/27/2024 4:45 PM OFFAL [facility]TRY Lonnie Tai MD LAB - CHEMISTRY ORDERABLES [address] [address], [facility] [phone] * ALDOLASE (08/27/2024 3:52 PM OFFAL [facility]ER [facility]LTRY) [facility] Aldolase 3.0 1.2 - 7.6 U/L 08/29/2024 8:19 AM OFFAL [facility]ER P[facility]TRY [employer] ([facility]) Comment: REFERENCE INTERVAL: Aldolase Access complete set of age- and/or gender-specific reference intervals for this test in the [facility] Test Directory ([place]). Performed By: [employer] [address] [place] [address] Train Master: Kleber Choudhary MD, PhD CLIA Number: [id number] Blood BLOOD SPECIMEN / Unknown Lab Venipuncture / Unknown 08/27/2024 3:52 PM [facility] 08/27/2024 4:29 PM OFFAL [facility]TRY Lonnie Tai MD LAB - CHEMISTRY ORDERABLES [facility] [employer] [facility]) [address] [place] [address] * (ABNORMAL) CYCLIC CITRULLINATED PEPTIDE(CCP) AB IGG (08/27/2024 3:52 PM OFFAL [facility]ER POULTRY) [facility] CCP Antibody IgG 15.4(H) <5.0 U/mL 08/27/2024 5:[address] [facility] Blood BLOOD SPECIMEN / Unknown Lab Venipuncture / Unknown 08/27/2024 3:52 PM [facility] 08/27/2024 4:29 PM OFFAL [facility]TRY Lonnie Tai MD LAB - CHEMISTRY ORDERABLES [address] [address], [facility] [phone] * ERYTHROCYTE SEDIMENTATION RATE (08/27/2024 3:52 PM [facility]) Erythrocyte Sedimentation Rate Westergren <1 0 - 30 MM/HR 08/27/2024 6:25 PM [facility] Blood BLOOD SPECIMEN / Unknown Lab Venipuncture / Unknown 08/27/2024 3:52 PM [facility] 08/27/2024 4:42 PM [facility] Lonnie Tai MD LAB - HEMATOLOGY ORDERABLES Performing Organization Address City/[facility]/ZIP Co de Phone Number [address] [address], [facility] [phone] * (ABNORMAL) CBC WITH DIFFERENTIAL (08/27/2024 3:52 PM [facility]AL [facility]) WBC 11.8(H) 4.0 - 10.7 x10E9/L 08/27/2024 5:13 PM [facility] RBC Count 4.04 3.90 - 5.20 x10E12/L 08/27/2024 5:13 PM [facility] Hemoglobin 8.4(L) 11.9 - 15.8 g/dL 08/27/2024 5:13 PM [facility] Hematocrit 26.5(L) 34.8 - 46.1 % 08/27/2024 5:13 PM [facility] MCV 65.6(L) 80.0 - 98.0 fL 08/27/2024 5:13 PM [facility] MCH 20.8(L) 26.7 - 33.6 pg 08/27/2024 5:13 PM [facility] MCHC 31.7 31.7 - 36.3 g/dL 08/27/2024 5:13 PM [facility] RDW-CV 18.0(H) 11.3 - 14.8 % 08/27/2024 5:13 PM [facility] Platelet Count 351 150 - 420 x10E9/L 08/27/2024 5:13 PM [facility] MPV 11.3 7.8 - 11.4 fL 08/27/2024 5:13 PM [facility] Neutrophil % 71.1 41.0 - 74.0 % 08/27/2024 5:13 PM [facility] Lymphocyte % 19.0 17.0 - 47.0 % 08/27/2024 5:13 PM [facility] Monocyte % 6.8 3.0 - 11.0 % 08/27/2024 5:13 PM [facility] Eosinophil % 1.1 0.0 - 7.0 % 08/27/2024 5:13 PM [facility] Basophil % 1.3 0.0 - 1.6 % 08/27/2024 5:13 PM [facility] Immature Granulocytes % 0.7 0.0 - 1.0 % 08/27/2024 5:13 PM [facility] Neutrophil Absolute 8.41(H) 1.60 - 7.50 x10E9/L 08/27/2024 5:13 PM [facility] Lymphocyte Absolute 2.25 1.00 - 4.40 x10E9/L 08/27/2024 5:13 PM [facility] Monocyte Absolute 0.81 0.15 - 1.00 x10E9/L 08/27/2024 5:13 PM [facility] Eosinophil Absolute 0.13 0.00 - 0.60 x10E9/L 08/27/2024 5:13 PM [facility] Basophil Absolute 0.15(H) 0.00 - 0.13 x10E9/L 08/27/2024 5:13 PM [facility] Blood BLOOD SPECIMEN / Unknown Lab Venipuncture / Unknown 08/27/2024 3:52 PM [facility] 08/27/2024 4:42 PM [facility] Lonnie Tai MD LAB - HEMATOLOGY ORDERABLES [facility] [address] [place] [address], [facility] [phone] * (ABNORMAL) COMPREHENSIVE METABOLIC PANEL (08/27/2024 3:52 PM [facility]) BUN 8 7 - 26 mg/dL 08/27/2024 5:20 PM [facility] Creatinine 1.40(H) 0.56 - 0.96 mg/dL 08/27/2024 5:20 PM [facility] Sodium 129(L) 136 - 145 mmol/L 08/27/2024 5:20 PM [facility] Potassium 4.0 3.5 - 4.5 mmol/L 08/27/2024 5:20 PM [facility] Chloride 98 98 - 107 mmol/L 08/27/2024 5:20 PM [facility] CO2 18(L) 22 - 29 mmol/L 08/27/2024 5:20 PM [facility] Glucose 286(H) 70 - 99 mg/dL 08/27/2024 5:20 PM [facility] Calcium 9.0 8.4 - 10.2 mg/dL 08/27/2024 5:20 PM [facility] Protein Total 6.7 6.0 - 8.3 g/dL 08/27/2024 5:20 PM [facility] Albumin 4.3 3.4 - 5.0 g/dL 08/27/2024 5:20 PM [facility] Bilirubin Total 0.3 0.2 - 1.2 mg/dL 08/27/2024 5:20 PM [facility] Alkaline Phosphatase 115 40 - 150 U/L 08/27/2024 5:20 PM [facility] ALT 13 5 - 55 U/L 08/27/2024 5:20 PM [facility] AST 14 5 - 34 U/L 08/27/2024 5:20 PM [facility] Anion Gap 13 6 - 16 08/27/2024 5:20 PM [facility] BUN/Creatinine Ratio 6(L) 7 - 23 08/27/2024 5:20 PM [facility] Osmolality Calculated 277 275 - 295 mOsm/kg 08/27/2024 5:20 PM [facility] Albumin/Globulin Ratio 1.8 1.1 - 2.3 08/27/2024 5:20 PM [facility] eGFR by CKD-EPI 40(L) >=90 mL/min/1.7 3 m2 08/27/2024 5:20 PM [facility] Blood BLOOD SPECIMEN / Unknown Lab Venipuncture / Unknown 08/27/2024 3:52 PM [facility] 08/27/2024 4:45 PM [facility] Lonnie Tai MD LAB - CHEMISTRY ORDERABLES Performing Organization Address [facility] Co de Phone Number [facility] [address] [place] [phone], [employer] [phone] * HEPATITIS B SURFACE ANTIBODY (08/27/2024 3:52 PM [facility]) Hepatitis B Virus Surface Antibody Non-react comfort Non-react comfort 08/27/2024 5:26 PM [facility] Comment: < 8 mIU/mL Hepatitis B surface Antibody (HBsAb). Nonreactive for HBsAb - individual is considered not immune to Hepatitis B Virus infection. Hepatitis B Surface Antibody Quantitative 0.0 <8.0 mIU/mL 08/27/2024 5:26 PM [facility] Comment: Hepatitis B Surface Antibody Numeric Result Interpretation: ? Nonreactive: ?<8.0 mIU/mL ? Indeterminate: ??8.0 - 12.0 mIU/mL ? Reactive: ?>12.0 mIU/mL ? Blood BLOOD SPECIMEN / Unknown Lab Venipuncture / Unknown 08/27/2024 3:52 PM [facility] 08/27/2024 4:29 PM [facility] Lonnie Tai MD LAB - CHEMISTRY ORDERABLES Performing Organization Address [facility] Co de Phone Number [facility] [address] [place] [address], [place] [phone] * HEPATITIS B CORE ANTIBODY TOTAL (08/27/2024 3:52 PM [facility]) HBc Antibody Total Non-reacti ve Non-reacti ve 08/27/2024 5:[address] [facility] Blood BLOOD SPECIMEN / Unknown Lab Venipuncture / Unknown 08/27/2024 3:52 PM [facility] 08/27/2024 4:29 PM [facility] Lonnie Tai MD LAB - CHEMISTRY ORDERABLES [address] [address], [place] [phone] * HEPATITIS B SURFACE ANTIGEN W RFLX CONFIRMATION (08/27/2024 3:52 PM [facility]) Hepatitis B Virus Surface Antigen Non-reacti ve Non-reacti ve 08/27/2024 5:[address] [facility] Blood BLOOD SPECIMEN / Unknown Lab Venipuncture / Unknown 08/27/2024 3:52 PM [facility] 08/27/2024 4:29 PM [facility] Lonnie Tai MD LAB - CHEMISTRY ORDERABLES Performing Organization Address City/[facility]/ZIP Co de Phone Number [address] [address], [place] [phone] * CK BLOOD (08/27/2024 3:52 PM [facility]) CK Total 78 30 - 200 U/L 08/27/2024 5:[address] [facility] Blood BLOOD SPECIMEN / Unknown Lab Venipuncture / Unknown 08/27/2024 3:52 PM [facility] 08/27/2024 4:45 PM [facility] Lonnie Tai MD LAB - CHEMISTRY ORDERABLES [address] [address], [place] [phone] * XR Chest 2Vw (08/27/2024 3:35 PM [facility]) Anatomical Region Laterality Modality Chest Digital Radiogra phy 08/27/2024 3:38 PM [facility] Impressions 08/27/2024 3:39 PM [facility] IMPRESSION: No acute cardiopulmonary abnormalities. > Interpreting Provider: Mattie Nobles MD on 08/27/2024 3:39 PM Narrative 08/27/2024 3:39 PM [facility] PROCEDURE: ??XR CHEST 2VW DATE/TIME OF EXAM: [...] Resulting Agency Comment [facility] [address] ??[facility] [phone] Lonnie Tai MD LAB - CHEMISTRY ORDERABLES [facility] INSURANCE BILL [address] [place] [address] * BONE DENSITY AXIAL SKELETON(1OR MORE SITES)[id number] (05/13/2021 8:11 AM CDT) Anatomical Region Laterality Modality Other 05/13/2021 2:47 PM CDT Narrative 05/13/2021 3:03 PM CDT Examination: Dual energy x-ray absorptiometry of the hip. Clinical Indication: M05.80: 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 erosive rheumatoid arthritis Z13.820: Osteoporosis screening Findings: Detailed data from the exam is sent separately to the ordering physician and is also available on [employer], the Radiology Department's computerized picture archive system. [...] ordering physician and is also available on [employer], the Radiology Department's computerized picture archive system. [...] Recently Relevant to Health Maintenance Care Teams Control Chemist Relationship Specialty Start Date End Date Eliana Mcneal [address] [place] [address] PCP - General 07/10/24
--- OUTSIDE RECORDS SUMMARY | 2024-11-09 23:14 | XMS_ITS | Encounter Summary ---
Author Organization [facility] Address [address] [place] [address] Care Team Providers Care Poultry Service Technician Name Role Phone Tanya Jane MD Primary Care Provider [phone] Encounter Details Date Type Department Care Team (Latest Contact Info) Description 01/17/2024 2:55 PM CDT - 01/17/2024 11:59 PM CDT Hospital Encounter [facility] OP DRAW STATION [address] [place] [phone] Discharge Disposition: Home or Self Care Social History Tobacco Use Types Packs/Day Years Used Date Smoking Tobacco: Former Smokeless Tobacco: Never Alcohol Use Standard Drinks/Week Comments Yes 1 (1 standard drink = 0.6 oz pur e alcohol) occaisionally PHQ-2 Answer Date Recorded Patient Health Questionnaire-2 Score 0 11/14/2023 Sex and Gender Information Value Date Recorded Sex Assigned at Not on file Gender Identity Not on file Sexual Orientation Not on file documented as of this encounter Medications at Time of Discharge Medication Sig Dispensed Refills Start Date End Date amLODIPine (NORVASC) 5 MG tablet Take 1 (one) tablet by mouth once daily 12/02/2020 aspirin EC (Ecotrin) 81 MG tablet Take 1 (one) tablet by mouth every 24 hours cyanocobalamin (Vitamin B-12) injection Inject 1,000 (one thousand) mcg subcutaneously every 30 days 03/03/2023 fenofibrate (LOFIBRA) 160 MG tablet Take 1 (one) tablet by mouth 07/23/2016 GLIPIZIDE XL 10 MG tablet Take 1 (one) tablet by mouth 2 times daily 3 06/05/2018 hydroCHLOROthiazide (HYDRODIURIL) 25 MG tablet Take 1 (one) tablet by mouth once daily 10/01/2019 HYDROcodone-acetamin ophen (Essex) 5-325 MG tablet Take 1 (one) tablet by mouth every 6 hours as needed for Pain isosorbide mononitrate CR 24hr (IMDUR) 30 MG tablet Take 1 (one) tablet by mouth once daily 07/14/2021 JANUVIA 100 MG tablet Take 1 (one) tablet by mouth once daily 07/05/2021 leflunomide (Arava) 20 MG tablet Take 1 (one) tablet by mouth once daily levothyroxine (SYNTHROID) 75 MCG tablet Take 1 (one) tablet by mouth DAILY 08/02/2016 losartan (COZAAR) 100 MG tablet Take 1 (one) tablet by mouth once daily 4 03/21/2018 metFORMIN (GLUCOPHAGE) 1000 MG tablet Take 1 (one) tablet by mouth BID 2 12/18/2017 Mounjaro 5 MG/0.5ML injection Inject 0.5 mL subcutaneously every 7 days 09/01/2022 nitroGLYCERIN (Nitrostat) 0.4 MG tablet Dissolve 1 (one) tablet under the tongue 08/21/2023 omeprazole (PRILOSEC) 40 MG capsule Take 1 (one) capsule by mouth daily before breakfast ONETOUCH VERIO test strip Use 1 (one) strip as directed 4 03/09/2018 potassium chloride ER (KLOR-CON) 20 MEQ tablet Take 1 (one) tablet by mouth 2 times daily 07/22/2020 simvastatin (ZOCOR) 20 MG tablet Take 1 (one) tablet by mouth 07/23/2016 valACYclovir (Valtrex) 1 GM tablet vitamin D, ergocalciferol, (Drisdol) 1.25 MG (36926 UT) capsule Take 1 (one) capsule by mouth every 7 days 10/06/2022 diclofenac sodium EC (Voltaren) 75 MG tabletIndications:Se ropositive rheumatoid arthritis (HCC),Therapeutic drug monitoring,High risk medication use Take 1 (one) tablet by mouth 2 times daily 180 tablet 3 08/02/2023 08/27/2024 etanercept (Enbrel) 50 MG/ML auto-injector penIndications:Serop ositive erosive rheumatoid arthritis (HCC) Inject 50 (fifty) mg subcutaneously every 7 days 4 mL 5 01/18/2024 07/18/2024 hydroxychloroquine (Plaquenil) 200 MG tabletIndications:Se ropositive rheumatoid arthritis (HCC),Therapeutic drug monitoring,High risk medication use Take 1.5 (one and one-half) tablets by mouth 2 times daily 270 tablet 3 08/02/2023 10/09/2024 documented as of this encounter Plan of Treatment Upcoming Encounters Date Type Department Care Team (Late st Contact Info) Description 01/09/2025 2:00 PM CDT [facility] Visit [facility] [address] [place] [address], [place] [phone] Thalia Dunlap MD [address] [place] [address] [address] [place] [phone] 01/09/2025 2:30 PM CDT Office Visit [facility] [address] [place] [address], [place] [phone] Matias Lewis III, MD [address] [place] [address] [address] [place] [phone] 02/25/2025 2:30 PM CDT Office Visit [facility] - Rheumatology [address] [place] [address], [place] [address] Lonnie Tai MD [address] [facility] [place], [place] [phone] documented as of this encounter Procedures Procedure Name Priority Date/Time Associated Diagnosis Comments PT-INR [facility] Routine 01/17/2024 3:24 PM CDT Nonalcoholic fatty liver disease CBC W AUTO DIFFERENTIAL Routine 01/17/2024 3:24 PM CDT Nonalcoholic fatty liver disease COMPREHENSIVE METABOLIC PANEL Routine 01/17/2024 3:24 PM CDT Nonalcoholic fatty liver disease documented in this encounter Results * (ABNORMAL) CBC WITH DIFFERENTIAL (01/17/2024 3:24 PM CDT) WBC 9.8 4.0 - 10.7 x10E9/L 01/17/2024 4:48 PM [facility] RBC Count 3.82(L) 3.90 - 5.20 x10E12/L 01/17/2024 4:48 PM [facility] Hemoglobin 10.1(L) 11.9 - 15.8 g/dL 01/17/2024 4:48 PM [facility] Hematocrit 29.9(L) 34.8 - 46.1 % 01/17/2024 4:48 PM [facility] MCV 78.3(L) 80.0 - 98.0 fL 01/17/2024 4:48 PM [facility] MCH 26.4(L) 26.7 - 33.6 pg 01/17/2024 4:48 PM [facility] MCHC 33.8 31.7 - 36.3 g/dL 01/17/2024 4:48 PM [facility] RDW-CV 14.1 11.3 - 14.8 % 01/17/2024 4:48 PM [facility] Platelet Count 301 150 - 420 x10E9/L 01/17/2024 4:48 PM [facility] MPV 11.2 7.8 - 11.4 fL 01/17/2024 4:48 PM [facility] Neutrophil % 74.2(H) 41.0 - 74.0 % 01/17/2024 4:48 PM [facility] Lymphocyte % 16.9(L) 17.0 - 47.0 % 01/17/2024 4:48 PM [facility] Monocyte % 6.0 3.0 - 11.0 % 01/17/2024 4:48 PM [facility] Eosinophil % 1.3 0.0 - 7.0 % 01/17/2024 4:48 PM [facility] Basophil % 1.1 0.0 - 1.6 % 01/17/2024 4:48 PM [facility] Immature Granulocytes % 0.5 0.0 - 1.0 % 01/17/2024 4:48 PM [facility] Neutrophil Absolute 7.24 1.60 - 7.50 x10E9/L 01/17/2024 4:48 PM CDT [facility] Lymphocyte Absolute 1.65 1.00 - 4.40 x10E9/L 01/17/2024 4:48 PM T [facility] Monocyte Absolute 0.59 0.15 - 1.00 x10E9/L 01/17/2024 4:48 PM CDT [facility] Eosinophil Absolute 0.13 0.00 - 0.60 x10E9/L 01/17/2024 4:48 PM CDT [facility] Basophil Absolute 0.11 0.00 - 0.13 x10E9/L 01/17/2024 4:48 PM T [facility] Blood BLOOD SPECIMEN / Unknown Lab Venipuncture / Unknown 01/17/2024 3:24 PM CDT 01/17/2024 4:28 PM CDT Thalia Dunlap MD LAB - HEMATOLOGY ORD ERABLES Performing Organization Address [facility] Co de Phone Number [address] [phone] [phone] * PT-INR [facility] (01/17/2024 3:24 PM CDT) PT 13.8 12.1 - 14.8 Seconds 01/17/2024 4:49 PM T [facility] INR 1.1 See Comment 01/17/2024 4:49 PM T [facility] Comment:The suggested therap eutic range for standard coumadin (warfarin) therapy is an INR of 2.0-3.0. For high-risk patients (Mechanical Mitral Valve Prosthesis, etc.), the suggested prophylactic therapeutic range is an INR of 2.5-3.5. Blood BLOOD SPECIMEN / Unknown Lab Venipuncture / Unknown 01/17/2024 3:24 PM CDT 01/17/2024 4:26 PM CDT Thalia Dunlap MD LAB - COAGULATION OR DERABLES Performing Organization Address [facility]/ZIP Co de Phone Number [address] [place] [address], [facility] [phone] * (ABNORMAL) COMPREHENSIVE METABOLIC PANEL (01/17/2024 3:24 PM [facility]) BUN 12 7 - 26 mg/dL 01/17/2024 4:58 PM [facility] Creatinine 1.41(H) 0.56 - 0.96 mg/dL 01/17/2024 4:58 PM [facility] Sodium 132(L) 136 - 145 mmol/L 01/17/2024 4:58 PM [facility] Potassium 3.7 3.5 - 4.5 mmol/L 01/17/2024 4:58 PM [facility] Chloride 100 98 - 107 mmol/L 01/17/2024 4:58 PM [facility] CO2 22 22 - 29 mmol/L 01/17/2024 4:58 PM [facility] Glucose 166(H) 70 - 115 mg/dL 01/17/2024 4:58 PM [facility] Calcium 9.6 8.4 - 10.2 mg/dL 01/17/2024 4:58 PM [facility] Protein Total 6.2 6.0 - 8.3 g/dL 01/17/2024 4:58 PM [facility] Albumin 4.1 3.4 - 5.0 g/dL 01/17/2024 4:58 PM [facility] Bilirubin Total 0.4 0.2 - 1.2 mg/dL 01/17/2024 4:58 PM [facility] Alkaline Phosphatase 70 40 - 150 U/L 01/17/2024 4:58 PM [facility] ALT 16 5 - 55 U/L 01/17/2024 4:58 PM [facility] AST 16 5 - 34 U/L 01/17/2024 4:58 PM [facility] Anion Gap 10 6 - 16 01/17/2024 4:58 PM [facility] BUN/Creatinine Ratio 9 7 - 23 01/17/2024 4:58 PM [facility] Osmolality Calculated 278 275 - 295 mOsm/kg 01/17/2024 4:58 PM CDT [facility] Albumin/Globulin Ratio 2.0 1.1 - 2.3 01/17/2024 4:58 PM CDT [facility] eGFR by CKD-EPI 40(L) >=90 mL/min/1.7 3 m2 01/17/2024 4:58 PM CDT [facility] Blood BLOOD SPECIMEN / Unknown Lab Venipuncture / Unknown 01/17/2024 3:24 PM CDT 01/17/2024 4:28 PM CDT Thalia Dunlap MD LAB - CHEMISTRY [facility]ERT [facility] Organization Address City/State/ZIP Co de Phone Number [facility] [address] [place] [address], [facility] [phone] documented in this encounter Visit Diagnoses Diagnosis Nonalcoholic fatty liver disease Other chronic nonalcoholic liver disease documented in this encounter Care Teams Poultry Service Technician Relationship Specialty Start Date End Date Tanya Jane MD [address] [place] [address] [place] [phone] PCP - General 01/05/18 07/09/24 documented as of this encounter
--- OUTSIDE RECORDS SUMMARY | 2024-11-09 23:14 | XMS_ITS | Encounter Summary ---
Author Organization [facility] Address [address] [place] [address] Care Team Providers Care Online Facilitator Name Role Phone Tanya Jane MD Primary Care Provider [phone] Reason for Visit * Reason Onset Date Comments Appointment 04/10/2023 Encounter Details Date Type Department Care Team (Late st Contact Info) Description 04/10/2023 Telephone [facility] - Rheumatology [address] [facility], [place] [phone] Lonnie Tai MD [address] [facility] [place] [address] Appointment Social History Tobacco Use Types Packs/Day Years Used Date Smoking Tobacco: Former Smokeless Tobacco: Never Alcohol Use Standard Drinks/Week Comments Yes 1 (1 standard drink = 0.6 oz pur e alcohol) occaisionally PHQ-2 Answer Date Recorded PHQ2 TOTAL SCORE 0 09/20/2022 Sex and Gender Information Value Date Recorded Sex Assigned at Not on file Gender Identity Not on file Sexual Orientation Not on file COVID-19 Exposure Response Date Recorded In the last 10 days, have yo u been in contact with someone who was confirmed or suspected to have Coronavirus/COVID-19? No / Unsure 04/10/2023 2:03 PM CDT documented as of this encounter Miscellaneous Notes * Telephone Encounter - Dk Aceves - 04/10/2023 2:26 PM CDT SPOKE WITH PATIENT TO RESCHEDULE THEM FOR NEW DR . PATIENT ANSWERED AND WAS RESCHEDULED. documented in this encounter Plan of Treatment Upcoming Encounters Date Type Department Care Team (Late st Contact Info) Description 01/09/2025 2:00 PM CDT Office Visit [facility] [address] [facility], [place] [phone] Thalia Dunlap MD [address] [facility] [address] [place] [phone] 01/09/2025 2:30 PM CDT Office Visit [facility] GI [address] [facility], [place] [address] Matias Lewis III, MD [address] [facility] 2[address] [place] [phone] 02/25/2025 2:30 PM CDT Office Visit [facility] - Rheumatology [address] [place] [address], [place] [phone] Lonnie Tai MD [address] [facility] [place] [address] documented as of this encounter Visit Diagnoses Not on filedocumented in this encounter Care Teams Online Facilitator Relationship Specialty Start Date End Date Tanya Jane MD [address] [place] [phone] PCP - General 01/05/18 07/09/24 documented as of this encounter
--- OUTSIDE RECORDS SUMMARY | 2024-11-09 23:14 | XMS_ITS | Encounter Summary ---
Author Organization [facility] Address [address] [facility] [place] [address] Care Team Providers Care Welder Tech Name Role Phone Tanya Jane MD Primary Care Provider [phone] Reason for Visit * Reason Onset Date Comments MEDICATION REFILL 07/24/2023 Encounter Details Date Type Department Care Team (Late st Contact Info) Description 07/24/2023 Refill [facility] - Rheumatology [address] [facility], [place] [phone] Lonnie Tai MD [address] [facility] [place] [address] MEDICATION REFILL Social History Tobacco Use Types Packs/Day Years [...] * Telephone Encounter - Dk Aceves - 07/24/2023 9:00 AM CDT Refill Request Kianna Hill TREVON: 05/16/2023 NOV scheduled: 08/01/2023 LRF: 07/17/2023 Qty Disp:4 mL # of refills:5 Allergies: Allergies Allergen Reactions ??? Codeine Nausea and/or Vomiting Pended Medication Order: Requested Prescriptions Pending Prescriptions Disp Refills ??? etanercept (Enbrel) 50 MG/ML auto-injector pen 4 mL 5 Sig: Inject 50 (fifty) mg subcutaneously every 7 days documented in this encounter Plan of Treatment Upcoming Encounters Date Type Department Care Team (Late st Contact Info) Description 01/09/2025 2:00 PM CDT Office Visit [facility] [address] [place] [address], [place] [phone] Thalia Dunlap MD [address] [place] [address] [address] [place] [phone] 01/09/2025 2:30 PM CDT Office Visit [facility] [address] [place] [address], [place] [phone] Matias Lewis III, MD [address] [place] [address] [address] [place] [phone] 02/25/2025 2:30 PM CDT Office Visit [facility] - Rheumatology [address] [place] [address], [place] [address] Lonnie Tai MD [address] [facility] [place] [address] documented as of this encounter Visit Diagnoses Diagnosis 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 erosive rheumatoid arthritis (HCC) documented in this encounter Care Teams Welder Tech Relationship Specialty Start Date End Date Tanya Jane MD [address] [place] [address] PCP - General 01/05/18 07/09/24 documented as of this encounter
--- OUTSIDE RECORDS SUMMARY | 2024-11-09 23:14 | XMS_ITS | Encounter Summary ---
Author Organization [facility] Health Address [address] [place] [address] Care Team Providers Care Second Language Tutor Name Role Phone Tanya Jane MD Primary Care Provider Encounter Details Date Type Department Care Team (Late st Contact Info) Description 11/14/2023 1:30 PM JUVENILE CORRECTIONS OFFICER Office Visit [facility] - Rheumatology [address] [facility], [place] [phone] Lonnie Tai MD [address] [facility] [place] [address] 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 arthritis (HCC) (Primary Dx); Therapeutic drug monitoring Social History Tobacco Use Types Packs/Day Years Used Date Smoking Tobacco: Former Smokeless Tobacco: Never Tobacco Cessation:Counseling Given: Not Answered Alcohol Use Standard Drinks/Week Comments Yes 1 (1 standard drink = 0.6 oz pur e alcohol) occaisionally PHQ-2 Answer Date Recorded Patient Health Questionnaire-2 Score 0 11/14/2023 Sex and Gender Information Value Date Recorded Sex Assigned at Not on file Gender Identity Not on file Sexual Orientation Not on file documented as of this encounter Last Filed Vital Signs Vital Sign Reading Time Taken Comments Blood Pressure 138/84 11/14/2023 1:43 PM JUVENILE CORRECTIONS OFFICER Pulse 73 11/14/2023 1:43 PM JUVENILE CORRECTIONS OFFICER Temperature 36.4 ??C (97.5 ??F) 11/14/2023 1:43 PM CS T Respiratory Rate - - Oxygen Saturation 98% 11/14/2023 1:43 PM JUVENILE CORRECTIONS OFFICER Inhaled Oxygen Concentration - - Weight 71.9 kg (158 lb 9.6 oz) 11/14/2023 1:43 P M JUVENILE CORRECTIONS OFFICER Height 167.6 cm (5' 6 ) 11/14/2023 1:43 PM JUVENILE CORRECTIONS OFFICER Body Mass Index 25.6 11/14/2023 1:43 PM JUVENILE CORRECTIONS OFFICER documented in this encounter Patient Instructions * Patient Instructions* Lonnie Tai MD - 11/14/2023 2:02 PM JUVENILE CORRECTIONS OFFICER You will need to get labs in January at [facility]. No new medications. Continue Enbrel and diclofenac, and HCQ. Fax over results of your eye exam. Return to clinic: [address] Davidson/ Dr. Tai To cancel, schedule, or reschedule an appointment, call [phone] or [phone], option 1. If you choose to get labs or imaging at an outside facility, it is your (as the patient) responsibility to have these results sent to us. Our fax number is [phone]. If you need a refill on your medication, please call your pharmacy first to have them send us a refill request. If you have an emergency after hours, you can reach the public information officer fellow by calling the sulfate drier machine operator [phone], but please also seek out appropriate care at Urgent Care or Emergency Room. NILE CORRECTIONS OFFICER documented in this encounter Progress Notes * Lonine Tai MD - 11/14/2023 1:58 PM CST [facility] Rheumatology Clinic Visit Referring Physician:@ Tanya Jane MD PCP:@ Tanya Jane MD CC: Fu for seropositive RA Interval History 11/14/22: Pt doing well. No issues with red, hot, edematous joints. States she is living with her brother. Has continued the Enbrel, HCQ, and diclofenac. Eye exam last month not scanned in yet but states it was normal. Has noticed one new nodule on her wrist (small). Denies any trouble breathing, new chest pain, no new rashes. 08/02/23: Patient was previously seen on 05/16/2023 for seropositive rheumatoid arthritis on Enbrelmonotherapy. She states that her pain is about the same and she has not noticed any improvement with the increased dose of meloxicam 15 mg daily.She notes increased pain around her rheumatoid nodulesin her left elbow.She also notes joint tenderness in her right hands along the DIP and PIP areas. She notes that she was having trouble getting her Enbrel and had to take it a few days late. 05/16/23: Pt states since last visit, she noted two new nodules on her left elbow which sends intermittent pain radiating to her fingertips. She is compliant with her Enbrel qweek. Takes meloxicam 7.5mg daily for pain. Denies stiffness. ROS: Other systems reviewed and negative or noncontributory except as stated in the HPI. Current Outpatient Medications: ??? amLODIPine (NORVASC) 5 MG tablet, Take 1 (one) tablet by mouth once daily, Disp: , Rfl: ??? aspirin EC (Ecotrin) 81 MG tablet, Take 1 (one) tablet by mouth every 24 hours, Disp: , Rfl: ??? cyanocobalamin (Vitamin B-12) injection, Inject 1,000 (one thousand) mcg subcutaneously every 30 days, Disp: , Rfl: ??? diclofenac sodium EC (Voltaren) 75 MG tablet, Take 1 (one) tablet by mouth 2 times daily, Disp:180 tablet, Rfl: 3 ??? etanercept (Enbrel) 50 MG/ML auto-injector pen, Inject 50 (fifty) mg subcutaneously every 7 days, Disp: 4 mL, Rfl: 5 ??? fenofibrate (LOFIBRA) 160 MG tablet, Take 1 (one) tablet by mouth, Disp: , Rfl: ??? GLIPIZIDE XL 10 MG tablet, Take 1 (one) tablet by mouth 2 times daily, Disp: , Rfl: 3 ??? hydroCHLOROthiazide (HYDRODIURIL) 25 MG tablet, Take 1 (one) tablet by mouth once daily, Disp: , Rfl: ??? HYDROcodone-acetaminophen (Duncombe) 5-325 MG tablet, Take 1 (one) tablet by mouth every 6 hours as needed for Pain, Disp: , Rfl: ??? hydroxychloroquine (Plaquenil) 200 MG tablet, Take 1.5 (one and one-half) tablets by mouth 2 times daily, Disp: 270 tablet, Rfl: 3 ??? isosorbide mononitrate CR 24hr (IMDUR) 30 MG tablet, Take 1 (one) tablet by mouth once daily, Disp: , Rfl: ??? JANUVIA 100 MG tablet, Take 1 (one) tablet by mouth once daily, Disp: , Rfl: ??? leflunomide (Arava) 20 MG tablet, Take 1 (one) tablet by mouth once daily, Disp: , Rfl: ??? levothyroxine (SYNTHROID) 75 MCG tablet, Take 1 (one) tablet by mouth DAILY, Disp: , Rfl: ??? losartan (COZAAR) 100 MG tablet, Take 1 (one) tablet by mouth once daily, Disp: , Rfl: 4 ??? metFORMIN (GLUCOPHAGE) 1000 MG tablet, Take 1 (one) tablet by mouth BID, Disp: , Rfl: 2 ??? Mounjaro 5 MG/0.5ML injection, Inject 5 (five) mg subcutaneously every 7 days, Disp: , Rfl: ??? nitroGLYCERIN (Nitrostat) 0.4 MG tablet, Dissolve 1 (one) tablet under the tongue, Disp: , Rfl: ??? omeprazole (PRILOSEC) 40 MG capsule, Take 1 (one) capsule by mouth daily before breakfast, Disp: , Rfl: ??? ONETOUCH VERIO test strip, Use 1 (one) strip as directed, Disp: , Rfl: 4 ??? potassium chloride ER (KLOR-CON) 20 MEQ tablet, Take 1 (one) tablet by mouth 2 times daily, Disp: , Rfl: ??? simvastatin (ZOCOR) 20 MG tablet, Take 1 (one) tablet by mouth, Disp: , Rfl: ??? valACYclovir (Valtrex) 1 GM tablet, Take 1 tablet every 12 hours by oral route for 7 days., Disp: , Rfl: ??? vitamin D, ergocalciferol, (Drisdol) 1.25 MG (33410 UT) capsule, Take 1 (one) capsule by mouth every 7 days, Disp: , Rfl: Allergies Allergen Reactions ??? Codeine Nausea and/or Vomiting Past Medical History: Diagnosis Date ??? Hypertension ??? Rheumatoid arthritis (CMS-HCC) ??? Type 2 diabetes mellitus (CMS-HCC) Past Surgical History: Procedure Laterality Date ??? Hernia Repair ??? HX APPENDECTOMY ??? Ovarian Cyst Removal ??? [place] REPAIR OF NASAL SEPTUM 1970 to help breathing but unsure if really ever need ??? Tonsillectomy Social History Socioeconomic History ??? Marital status: Tobacco Use ??? Smoking status: Former ??? Smokeless tobacco: Never Vaping Use ??? Vaping Use: Never used Substance and Sexual Activity ??? Alcohol use: Yes Alcohol/week: 1.0 standard drink of alcohol Comment: occaisionally ??? Drug use: Yes Types: Marijuana No family history on file. Physical Exam: BP 138/84 (BP SITE: RIGHT ARM, BP POSITION: SITTING, BP Cuff Size: Other (comments)) Pulse 73 Temp 97.5 ??F (36.4 ??C) (Temporal) Ht 1.676 m (5' 6 ) Wt 71.9 kg (158 lb 9.6 oz) SpO2 98% General: Alert. Oriented. NAD. Skin: Normal texture and turgor. No appreciable rashes or lesions. Hair is normal texture and in normal distribution. HEENT: Normal cornea/conjunctivae. EOMI. MMM. No mucosal ulcerations. Normal external ear. Vascular/Lymphatic: Arterial pulses 2+ and regular. Normal capillary refill. No edema. No appreciable LAD. Chest/Lungs: Clear to auscultation bilaterally. No adventitious sounds. Good air movement. Normal respiratory rate and effort. Heart: Normal rate, regular rhythm. Normal S1 and S2. No m/r/g. Abdomen: Normal BS. Soft. Non-distended. Non-tender to palpation. Neurologic: Strength is uniform and 5/5 throughout. No appreciable sensory deficit. Psychiatric: Appropriate mood and affect Musculoskeletal Exam: Gait: wnl, no assistance needed Neck/Back: normal ROM Upper Extremity: Right 3rd PIP fixed in flexion. Left wrist fullness. No warmth or tenderness. Otherwise normal ROM. x1 rubbery mobile nodule over right elbow, x3 firm less mobile nodules over left elbow and proximal forearm. Small synovial cyst on left wrist . Lower Extremity: No lesions noted, no deviations Labs: Recent Labs Component Name 06/29/23 1231 12/15/22 1435 09/22/22 0824 11/01/21 0851 08/05/21 0832 04/29/21 0809 03/02/21 0822 12/11/20 0831 03/12/18 0956 12/27/17 0919 11/02/17 0703 09/19/17 0731 08/08/17 0740 06/30/17 0732 WBC 7.1 9.4 7.9 7.5 7.8 6.8 6.3 8.4 - 8.0 8.1 6.6 7.4 7.4 NEUTABS 5.28 - - - - - - - - 5.6 5.0 4.2 4,573 4,677 LYMPHABS - - 2.0 1.9 1.3 1.7 1.6 1.6 - - - - - - HGB 11.0* 11.9* 12.3 12.5 12.2 12.3 12.3 11.3 - 12.7 13.3 12.9 12.8 11.7 MCV 80.3* 81.4 80 86 89 95 98* 99* - 89 85 89 85.5 85.4 PLTCOUNT 213 293 292 253 198 237 242 294 - - - - - - - = values in this interval not displayed. Recent Labs Component Name 08/16/23 0836 06/29/23 1231 12/15/22 1435 09/22/22 0824 11/01/21 0851 08/05/21 0832 BUN 10 7 8 7* 9 10 CREATININE 1.26* 1.13* 1.10* 1.11* 1.12* 1.23* EGFR 46* 52* 54* 53* 50* 45* AST 14 16 14 25 22 25 ALT 12 16 14 29 38* 38* Imaging: PROCEDURE: ??XR FOREARM LEFT 2VW, XR FOOT RIGHT 3VW OR MORE, XR FOOT LEFT 3VW OR MORE, XR WRIST RIGHT 3VW OR MORE, XR WRIST LEFT 3VW OR MORE, XR HAND RIGHT 3VW OR MORE, XR HAND LEFT 3VW OR MORE, DATE/TIME OF EXAM: ??12/15/2022 2:23 PM, LOCATION ??[facility] ?? INDICATION: M05.9: Rheumatoid arthritis with positive rheumatoid factor, involving unspecified site (CMS/HCC) ?? ADDITIONAL CLINICAL INFORMATION: Ordering Provider Reason For Exam: Technologist Note: Additional: ?? COMPARISON: Right and left hand radiographs dated 04/17/2019 ??. ?? FINDINGS: ?? Right hand: ?? No acute fracture or dislocation. Moderate osteoarthritis [...] are osteopenic. The soft tissues are normal. ?? Left hand: ?? No acute fracture or dislocation. Moderate osteoarthritis at the first carpometacarpal joint. The other joint spaces are normal. No erosions. Small calcifications near the fourth and fifth metacarpal heads. Mild swan-neck deformity of the fourth finger. The bones are osteopenic. The soft tissues are normal. ?? Right wrist: ?? No fracture or dislocation. Moderate osteoarthritis at the first carpometacarpal joint. Chronic deformity of the distal radius and the distal ulnar shaft consistent with healed fractures. A previously described chronic erosion in the ulnar styloid is no longer well visualized. No new erosions. The joint spaces are otherwise maintained. Osteopenia. The soft tissues are normal. ?? Left wrist: ?? No fracture or dislocation. Moderate osteoarthritis at the first carpometacarpal joint. No erosions. Osteopenia. The soft tissues are normal. ?? Left forearm: ?? There is no fracture of the radius or ulna. The bones are osteopenic. Small calcification anterior aspect of the elbow. Small osteophyte at the elbow. ?? Right foot: ?? No acute fracture or dislocation. Chronic deformity [...] joints with osteophytes, sclerosis, mild cortical irregularity. ?? Left foot: ?? No fracture or dislocation. The joint spaces are normal. Mild degenerative change at the first metatarsophalangeal joint with cysts in the metatarsal head. No definite erosions. The bones are slightly osteopenic. The soft tissues are normal. ? Impression: 1. Right hand and wrist: Moderate [...] arthritis. 5. Left foot: Minimal degenerative change. ?? > Interpreting Provider: Terrance Madrigal MD on 12/15/2022 2:59 PM Assessment/ Plan: # 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 erosive rheumatoid arthritis # Osteoarthritis Onset 2013. RF 173. CCP > 250. Erosions+. Nodules on left elbow still present without much improvement. PE tenderness noted in 1,2,3 digit right hand DIP and PIP along with left hand 2,3 DIP joints. Pain seems more related to OA. Prior therapy: leflunomide 20 mg daily (01/2017 - 11/2020, stopped 11/24 elevated LFTs), Humira (40 mg SC Q14D (11/2020 - 04/2021 stopped drug site reaction), meloxicam 15 mg daily (stopped in Sep 2023), Diclofenac 75 mg BID (started Sep 2023-present). Has been on Enbrel (07/2021- present). MTX was discussed but never started because pt was concerned about the side effects. HCQ (2022-present) - continue Enbrel 50 mg SC Q7D - OCT exam done 10/14 but not faxed over (wnl per pt), continue HCQ 300 mg daily. - Continue diclofenac 75 md BID for pain control - Labs in January 2024 ?? Immunosuppression due to 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 - Latent infection screen: HBsAb (-) HBsAg (-) HBcAb (-) HCV Ab (-) 12/15/22 TB quant (-) 09/22/22 - Immunizations per PCP: for all patients on immunosuppressive therapy we recommend annual influenza vaccine, COVID19 vaccine, Prevnar, Pneumovax, Shingrix. - Patient advised to contact clinic in case of any infections or antibiotic use. Discussed with Dr. Stuart Tai MD Rheumatology Fellow [facility] The following were ordered during this visit: Orders Placed This Encounter ??? CBC WITH DIFFERENTIAL Standing Status: Future Standing Expiration Date: 11/14/2024 Order Specific Question: Release to patient Answer: Immediate ??? COMPREHENSIVE METABOLIC PANEL Standing Status: Future Standing Expiration Date: 11/14/2024 Order Specific Question: Release to patient Answer: Immediate ??? C-REACTIVE PROTEIN Standing Status: Future Standing Expiration Date: 11/14/2024 Order Specific Question: Release to patient Answer: Immediate ??? ERYTHROCYTE SEDIMENTATION RATE Standing Status: Future Standing Expiration Date: 11/14/2024 Order Specific Question: Release to patient Answer: Immediate ??? CYCLIC CITRULLINATED PEPTIDE(CCP) AB IGG Standing Status: Future Standing Expiration Date: 11/14/2024 Order Specific Question: Release to patient Answer: Immediate ??? RHEUMATOID FACTOR BLOOD QUANTITATIVE Standing Status: Future Standing Expiration Date: 11/14/2024 Order Specific Question: Release to patient Answer: Immediate ??? ALDOLASE Standing Status: Future Standing Expiration Date: 11/14/2024 Order Specific Question: Release to patient Answer: Immediate ??? CK BLOOD Standing Status: Future Standing Expiration Date: 11/14/2024 Order Specific Question: Release to patient Answer: Immediate NILE CORRECTIONS OFFICER Associated attestation - Dennis Davidson MD - 11/14/2023 4:41 PM JUVENILE CORRECTIONS OFFICER (Prob #1) RA (RF/Ab to CCP +) with Erosions (Prob #2) Co-morbidities (Subj) Patient remains on 300 mg HCQ/d, 50 mg Enbrel SQ/week, 75 mg Diclofenac bid+ other meds. Some fullness L wrist recently. No side effects meds. Doing well ,overall; (Obj) BP 138/84 (BP SITE: RIGHT ARM, BP POSITION: SITTING, BP Cuff Size: Other (comments)) Pulse 73 Temp 97.5 ??F (36.4 ??C) (Temporal) Ht 1.676 m (5' 6 ) Wt 71.9 kg (158 lb 9.6 oz) SpO2 98% (Skin) No rashes or eruptions; RN romyall R elbow and 3 small on left elbow area (HEENT) No mucosal ulcers. Moist membranes. (General) Unremarkable (Extrem) SHELTER prominence; 1-3rd MCPs SfT0; L wrist small cyst. No other levi synovitis. MS= bilat (Assess) RA stable on present regimen. (Plan) Continue same meds with labs q 6 months, yearly eye exams and TB/Hep screening. RTO in 6 months.I observed,examined, and discussed with Dr. Tai. I confirm her findings and note. Dennis Davidson MD, FACP, FAAP, MACR Asphalt Roller Operator and Pediatric Rheumatology Professor of Internal Medicine,Pediatrics, and Molecular Immunology [facility] Rheumatoid Arthritis Disease History: RA disease activity: low Previous therapy: DMARD prescribed, dispensed, or administered Disease prognosis: good Biologic DMARD therapy: Patient is receiving first-time biologic DMARD for RA. Patient has had a course of biologic DMARDs in the past. TB screening was performed within 6 months prior to initiation of first-time biologic disease modifying anti-rheumatic 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 for RA. documented in this encounter Plan of Treatment Upcoming Encounters Date Type Department Care Team (Late st Contact Info) Description 01/09/2025 2:00 PM CDT Office Visit [facility] - GI [address] [place] [address], [place] [address] Thalia Dunlap MD [address] [place] [address] [address] [place] [phone] 01/09/2025 2:30 PM CDT Office Visit [facility] - [facility] [address] [place] [address], [place] [phone] Matias Lewis III, MD [address] [place] [address] [address] [place] [phone] 02/25/2025 2:30 PM CDT Office Visit [facility] - Rheumatology [address] [place] [address], [place] [phone] Lonnie Tai MD [address] [facility] [place] [address] documented as of this encounter Results * CK BLOOD (08/27/2024 3:52 PM JUVENILE CORRECTIONS OFFICER) [facility] CK Total 78 30 - 200 U/L 08/27/2024 5:20 PM JUVENILE CORRECTIONS OFFICER [facility] Blood BLOOD SPECIMEN / Unknown Lab Venipuncture / Unknown 08/27/2024 3:52 PM JUVENILE CORRECTIONS OFFICER 08/27/2024 4:45 PM JUVENILE CORRECTIONS OFFICER Lonnie Tai MD LAB - CHEMISTRY ORDERABLES [facility] [address] [place] [address] [phone] * ALDOLASE (08/27/2024 3:52 PM JUVENILE CORRECTIONS OFFICER) [facility] Aldolase 3.0 1.2 - 7.6 U/L 08/29/2024 8:19 AM JUVENILE CORRECTIONS OFFICER [facility] ([facility]) Comment: REFERENCE INTERVAL: Aldolase Access complete set of age- and/or gender-specific reference intervals for this test in the [facility] Test Directory ([employer]). Performed By: [employer] [address] [place] [address] Roll Plugger: Kleber Choudhary MD, PhD CLIA Number: [id number] Blood BLOOD SPECIMEN / Unknown Lab Venipuncture / Unknown 08/27/2024 3:52 PM JUVENILE CORRECTIONS OFFICER 08/27/2024 4:29 PM JUVENILE CORRECTIONS OFFICER Lonnie Tai MD LAB - CHEMISTRY ORDERABLES [address] * RHEUMATOID FACTOR BLOOD QUANTITATIVE (08/27/2024 3:52 PM JUVENILE CORRECTIONS OFFICER) [facility] Rheumatoid Factor <15 <30 IU/mL 08/27/2024 5:01 PM JUVENILE CORRECTIONS OFFICER [facility] Rheumatoid Factor Screen Negative Negative 08/27/2024 5:01 PM JUVENILE CORRECTIONS OFFICER [facility] Blood BLOOD SPECIMEN / Unknown Lab Venipuncture / Unknown 08/27/2024 3:52 PM JUVENILE CORRECTIONS OFFICER 08/27/2024 4:29 PM JUVENILE CORRECTIONS OFFICER Lonnie Tai MD LAB - CHEMISTRY ORDERABLES Performing Organization Address City/[facility]/ZIP Co de Phone Number [address] [address], [facility] [phone] * (ABNORMAL) CYCLIC CITRULLINATED PEPTIDE(CCP) AB IGG (08/27/2024 3:52 PM JUVENILE CORRECTIONS OFFICER) CCP Antibody IgG 15.4(H) <5.0 U/mL 08/27/2024 5:26 PM JUVENILE CORRECTIONS OFFICER [facility] Blood BLOOD SPECIMEN / Unknown Lab Venipuncture / Unknown 08/27/2024 3:52 PM JUVENILE CORRECTIONS OFFICER 08/27/2024 4:29 PM JUVENILE CORRECTIONS OFFICER Lonnie Tai MD LAB - CHEMISTRY ORDERABLES Performing Organization Address [facility]/ZIP Co de Phone Number [address] [address], [facility] [phone] * ERYTHROCYTE SEDIMENTATION RATE (08/27/2024 3:52 PM JUVENILE CORRECTIONS OFFICER) Erythrocyte Sedimentation Rate Westergren <1 0 - 30 MM/HR 08/27/2024 6:25 PM JUVENILE CORRECTIONS OFFICER [facility] Blood BLOOD SPECIMEN / Unknown Lab Venipuncture / Unknown 08/27/2024 3:52 PM JUVENILE CORRECTIONS OFFICER 08/27/2024 4:42 PM JUVENILE CORRECTIONS OFFICER Lonnie Tai MD LAB - HEMATOLOGY ORDERABLES Performing Organization Address City/[facility]/ZIP Co de Phone Number [address] [address], [facility] [phone] * C-REACTIVE PROTEIN (08/27/2024 3:52 PM JUVENILE CORRECTIONS OFFICER) C-Reactive Protein <0.5 <=0.5 mg/dL 08/27/2024 5:21 PM [facility] Blood BLOOD SPECIMEN / Unknown Lab Venipuncture / Unknown 08/27/2024 3:52 PM JUVENILE CORRECTIONS OFFICER 08/27/2024 4:45 PM JUVENILE CORRECTIONS OFFICER Lonnie Tai MD LAB - CHEMISTRY ORDERABLES [facility] [address] [place] [address], [facility] [phone] * (ABNORMAL) COMPREHENSIVE METABOLIC PANEL (08/27/2024 3:52 PM JUVENILE CORRECTIONS OFFICER) BUN 8 7 - 26 mg/dL 08/27/2024 5:20 PM [facility] Creatinine 1.40(H) 0.56 - 0.96 mg/dL 08/27/2024 5:20 PM [facility] Sodium 129(L) 136 - 145 mmol/L 08/27/2024 5:20 PM [facility] Potassium 4.0 3.5 - 4.5 mmol/L 08/27/2024 5:20 PM [facility] Chloride 98 98 - 107 mmol/L 08/27/2024 5:20 PM [facility] CO2 18(L) 22 - 29 mmol/L 08/27/2024 5:20 PM [facility] Glucose 286(H) 70 - 99 mg/dL 08/27/2024 5:20 PM [facility] Calcium 9.0 8.4 - 10.2 mg/dL 08/27/2024 5:20 PM [facility] Protein Total 6.7 6.0 - 8.3 g/dL 08/27/2024 5:20 PM [facility] Albumin 4.3 3.4 - 5.0 g/dL 08/27/2024 5:20 PM [facility] Bilirubin Total 0.3 0.2 - 1.2 mg/dL 08/27/2024 5:20 PM [facility] Alkaline Phosphatase 115 40 - 150 U/L 08/27/2024 5:20 PM [facility] ALT 13 5 - 55 U/L 08/27/2024 5:20 PM [facility] AST 14 5 - 34 U/L 08/27/2024 5:20 PM [facility] Anion Gap 13 6 - 16 08/27/2024 5:20 PM [facility] BUN/Creatinine Ratio 6(L) 7 - 23 08/27/2024 5:20 PM [facility] Osmolality Calculated 277 275 - 295 mOsm/kg 08/27/2024 5:20 PM [facility] Albumin/Globulin Ratio 1.8 1.1 - 2.3 08/27/2024 5:20 PM [facility] eGFR by CKD-EPI 40(L) >=90 mL/min/1.7 3 m2 08/27/2024 5:20 PM [facility] Blood BLOOD SPECIMEN / Unknown Lab Venipuncture / Unknown 08/27/2024 3:52 PM JUVENILE CORRECTIONS OFFICER 08/27/2024 4:45 PM JUVENILE CORRECTIONS OFFICER Lonnie Tai MD LAB - CHEMISTRY ORDERABLES Performing Organization Address City/State/[place] Co de Phone Number [facility] [address] [place] [address], [facility] [phone] * (ABNORMAL) CBC WITH DIFFERENTIAL (08/27/2024 3:52 PM JUVENILE CORRECTIONS OFFICER) WBC 11.8(H) 4.0 - 10.7 x10E9/L 08/27/2024 5:13 PM [facility] RBC Count 4.04 3.90 - 5.20 x10E12/L 08/27/2024 5:13 PM [facility] Hemoglobin 8.4(L) 11.9 - 15.8 g/dL 08/27/2024 5:13 PM [facility] Hematocrit 26.5(L) 34.8 - 46.1 % 08/27/2024 5:13 PM [facility] MCV 65.6(L) 80.0 - 98.0 fL 08/27/2024 5:13 PM [facility] MCH 20.8(L) 26.7 - 33.6 pg 08/27/2024 5:13 PM [facility] MCHC 31.7 31.7 - 36.3 g/dL 08/27/2024 5:13 PM [facility] RDW-CV 18.0(H) 11.3 - 14.8 % 08/27/2024 5:13 PM [facility] Platelet Count 351 150 - 420 x10E9/L 08/27/2024 5:13 PM [facility] MPV 11.3 7.8 - 11.4 fL 08/27/2024 5:13 PM [facility] Neutrophil % 71.1 41.0 - 74.0 % 08/27/2024 5:13 PM [facility] Lymphocyte % 19.0 17.0 - 47.0 % 08/27/2024 5:13 PM [facility] Monocyte % 6.8 3.0 - 11.0 % 08/27/2024 5:13 PM [facility] Eosinophil % 1.1 0.0 - 7.0 % 08/27/2024 5:13 PM [facility] Basophil % 1.3 0.0 - 1.6 % 08/27/2024 5:13 PM [facility] Immature Granulocytes % 0.7 0.0 - 1.0 % 08/27/2024 5:13 PM [facility] Neutrophil Absolute 8.41(H) 1.60 - 7.50 x10E9/L 08/27/2024 5:13 PM [facility] Lymphocyte Absolute 2.25 1.00 - 4.40 x10E9/L 08/27/2024 5:13 PM [facility] Monocyte Absolute 0.81 0.15 - 1.00 x10E9/L 08/27/2024 5:13 PM [facility] Eosinophil Absolute 0.13 0.00 - 0.60 x10E9/L 08/27/2024 5:13 PM [facility] Basophil Absolute 0.15(H) 0.00 - 0.13 x10E9/L 08/27/2024 5:13 PM [facility] Blood BLOOD SPECIMEN / Unknown Lab Venipuncture / Unknown 08/27/2024 3:52 PM [employer] OFFICER 08/27/2024 4:42 PM [employer] OFFICER Lonnie Tai MD LAB - HEMATOLOGY ORDERABLES Performing Organization Address City/State/RUST Co de Phone Number [facility] [address] [place] [address], [facility] [phone] documented in this encounter Visit Diagnoses Diagnosis 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 arthritis (HCC)- Primary Rheumatoid arthritis Therapeutic drug monitoring Encounter for therapeutic drug monitoring documented in this encounter Care Teams Second Language Tutor Relationship Specialty Start Date End Date Tanya Jane MD [address] [place] [address] [place] [address] PCP - General 01/05/18 07/09/24 documented as of this encounter
--- OUTSIDE RECORDS SUMMARY | 2024-11-09 23:14 | XMS_ITS | Encounter Summary ---
Author Organization [facility] Address [address] [facility] [place] [address] Care Team Providers Care Van Loader Name Role Phone Tanya Jane MD Primary Care Provider [phone] Eliana Mcneal Primary Care Provider [phone] Encounter Details Date Type Department Care Team (Late Contact Info) Description 04/21/2023 Telephone [facility] - Centralized Scheduling [address] [place] [address] Dennis Davidson MD [address] [place] [address] [place] [address] Social History Tobacco Use Types Packs/Day Years [...] suspected to have Coronavirus/COVID-19? No / Unsure 04/21/2023 9:52 AM CDT documented as of this encounter Plan of Treatment Upcoming Encounters Date Type Department Care Team ([facility] Contact Info) Description 01/09/2025 2:00 PM CDT Office Visit [facility] - [address] [facility], [place] [address] Thalia Dunlap MD [address] [place] [address] [address] [place] [address] 01/09/2025 2:30 PM CDT Office Visit [facility] - GI [address] [facility], [place] [phone] Matias Lewis III, MD [address] [facility] 2L [place] [address] 02/25/2025 2:30 PM CDT Office Visit [facility] - Rheumatology [address] [facility], [place] [address] Lonnie Tai MD [address] [facility] [place] [address] documented as of this encounter Visit Diagnoses Not on filedocumented in this encounter Care Teams Van Loader Relationship Specialty Start Date End Date Tanya Jane MD [address] [place] [address] [place] [address] PCP - General 01/05/18 07/09/24 Eliana Mcneal [address] [place] [address] PCP - General 07/10/24 documented as of this encounter
--- OUTSIDE RECORDS SUMMARY | 2024-11-09 23:14 | XMS_ITS | Encounter Summary ---
Author Organization [facility] Address [address] [facility] [place] [address] Care Team Providers Care Station Baggage Porter Name Role Phone Tanya Jane MD Primary Care Provider [phone] Reason for Referral * Radiology Services (Routine) - Pending Review Specialty Diagnoses / Procedures Referred By Khoa soria Referred To Contact Diagnoses Nonalcoholic fatty liver disease Procedures US ABDOMEN LIMITED Thalia Dunlap MD [address] [place] [address] [address] [place] [address] Referral ID Status Reason Start Date Expiration Date V isits Requested Visits Authorized [id number] Pending Review 01/17/2024 01/16/2025 1 1 Reason for Visit * Reason Comments Elevated Liver Enzymes Encounter Details Date Type Department Care Team (Late st Contact Info) Description 01/17/2024 2:00 PM CDT Office Visit [facility] - [address], [place] [address] Thalia Dunlap MD [address] [place] [address] [address] [place] [address] Nonalcoholic fatty liver disease (Primary Dx); Metabolic syndrome; Elevated liver enzymes Social History Tobacco Use Types Packs/Day Years [...] Sign Reading Time Taken Comments Blood Pressure 128/75 01/17/2024 2:01 PM CDT Pulse 100 01/17/2024 2:01 PM CDT Temperature 36.4 ??C (97.5 ??F) 01/17/2024 2:01 PM CD T Respiratory Rate - - Oxygen Saturation 99% 01/17/2024 2:01 PM CDT Inhaled Oxygen Concentration - - Weight 69.1 kg (152 lb 6.4 oz) 01/17/2024 2:01 P M CDT Height 170.2 cm (5' 7 ) 01/17/2024 2:01 PM CDT Body Mass Index 23.87 01/17/2024 2:01 PM CDT documented in this encounter Progress Notes * Tono Damon MD - 01/17/2024 2:00 PM CDT [facility] INITIAL EVALUATION Patient: Kianna Hill Sex: female Age: [age] year old Date of : 1950 Subjective CC: Chief Complaint Patient presents with ??? Elevated Liver Enzymes History of Present Illness: Kianna Hill is a 73 year old female with pmh of - RA, hypertension, diabetes mellitus, and dyslipidemia, hypothyroidism, GERD who presents for follow up evaluation in [facility]. Last seen in November2022 for elevated liver enzymes. First noted in 2019, enzymes have normalized since. Extensive workup largely negative including viral Screening panel: Hep A antibody, Hep B surface antigen + core IgM, Hep C antibody, Autoimmune screening panel: NAN, SMA, F-actin, M2, IgG, IgM, Hemochromatosis: iron panel + ferritin Marcial's: ceruloplasmin A1AT Deficiency: A1AT. Thyroid-Hepatic Atlas: TSH, fT4, fT3. Since last being seen she has been doing well. No hospitalizations or ERvisits. No major concerns. Has lost weight 72 >>69 today. Reports has been on mounjaro and tolerating well Denies history of celiac disease, hypothyroidism and HIV She reports that her level of energy is low For exercise she has been doing nothing Impediments to regular exercise she reports include dont have the urge to She notes generalized abdominal pain maybe 2ce a week In reviewing her dietary habits, she has been eating fast food ( Two times a week) Nutrition ? 24 hour recall: dinner, had fish sticks mac and cheese and salad ? Sugary drinks: none ? Caffeine Intake: a pot of coffee everyday ? Time and Place of Food Intake: eats out 2 times a week, rest are home cooked meals ? Obesogenic Medications: Glipizide, mounjaro Exercise ? none Social History ? Tobacco: smoke marijuana every day 4-5 times a day since the 8th grade ? Alcohol: 2-3 times a month, cut back 10 years ago. Was drinking 2-3 times a day bobron and coke for atleast 10 years. ? Non-Prescription/Recreational Drug Use: none ? 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 Medical and Surgical History Past Medical History: Reviewed and updated in Epic History tab Past Surgical History: Reviewed and updated in Epic History tab Allergies: Reviewed and updated in Epic Allergies tab Family History: denies FHx hepatic disease, MEN, thyroid disease (DM), pancreatic disease Objective Physical Exam: On exam today, she does not apear appeared obese, alert and anicteric. There were no cutaneous stigmata of chronic liver disease. I reviewed today's vital signs with the patient. There were no vitals taken for this visit. Wt Readings from Last 3 Encounters: 11/14/23 71.9 kg (158 lb 9.6 oz) 08/01/23 72.1 kg (159 lb) 05/16/23 72.8 kg (160 lb 6.4 oz) Current BMI: 23. kg/m2 Skin: no jaundice, no spider angiomata. Lungs were clear to auscultation bilaterally. Heart sounds were regular rate and rhythm. There were no murmurs Abdomen soft and nontender. There was no palpable hepatosplenomegaly, masses, ascites or hernias. Extremities had no edema. Acanthosis nigricans was not noted Labs: Personally reviewed. Recent Labs Component Name 12/15/22 1435 HDL 32* No results for input(s): TRIGLYCERIDE in the last 83798 hours. TSH: HbA1c: Recent Labs Component Name 12/15/22 1435 HGBA1C 6.7* Imaging/Other diagnostic testing: Fibroscan: Fibroscan 12/15/2022: XL probe Success 10/03 = 100% CAP: 323; IQR 53 Liver stiffness 7.7; IQR/Med: 16 - The probability of advanced liver fibrosis is:??LOW TO MODERATE. - The loss of ultrasound signal, (controlled attenuation parameter, CAP [dB/m]), indicates that theprobability of hepatic steatosis is:??SUBSTANTIAL / HIGH??. (Elastograms not ideal; a few acceptable) Fibroscan 01/16 Liver stiffness increased to 9.9 EGD: in the Colonoscopy: 3-4 year ago, instructed to repeat in 5 years Ultrasound: 01/09/2022 IMPRESSION: ?? 1. Mild hepatic steatosis. No discrete hepatic lesion or intrahepatic biliary dilation. Patent hepatic vasculature. ?? 2. Cholelithiasis. ?? 3. Splenomegaly. Assessment & Plan In summary, 73 year old female with pmh of RA, hypertension, diabetes mellitus, and dyslipidemia, hypothyroidism, GERD who presents for follow up for elevated liver enzymes Metabolic dysfunction-associated steatotic liver disease (MASLD, previously NAFLD) Elevated Transaminases risk factors include HTN, HLD, and hypothyroidism This patient has a FIB-4 score of 1.35. This result is based on an AST of 14 (08/16/2023), ALT of 12 (08/16/2023), and platelet count of 213 (06/29/2023). Elevated liver enzyme workup largely unremarkable. Last CMP wnl, fibroscan liver fibrosis increasedsince last year 7.7 --9.9 today but patient reports that she had kiswahili fries prior to the scan. Plan: -Check CBC, CMP, INR -Imaging: ultrasound, repeat fibroscan next visit, ensure fasting 4 hours prior -Consider liver biopsy if repeat fibroscan in 6 months consistent with today -Avoid liver toxic medications -Limit processed/fatty/fried foods. Limit calorie containing beverages: soda, cream/sugar in coffee(coffee ok), milk, energy drinks, etc. Shift caloric intake to earlier in the day (heavier breakfast/lunch, physics technical officer dinner), increase protein with breakfast to promote satiety throughout the day. -Advised at least 30 mins/day aerobic activity along with 2x/week resistance training General Maintenance: -CRC Screening colonoscopy completed 2-3 years ago, patient reports it was normal Tono Damon MD 01/16/2024 8:12 PM Associated attestation - Thalia Dunlap MD - 01/21/2024 2:42 PM CDT GI & Hepatology Attending Note I saw Ms. Hill in the [facility] with Dr. Damon at [facility] today for follow up visit regarding: MASLD Elevated liver enzymes Borderline splenomegaly on imaging Metabolic syndrome Relevant issues RA on Humira DM Hyperlipidemia Hypertension Hypothyroidism GB stones Interim history: Kianna Hill is a 73 yo female who was seen in the Metabolic Liver Service for FU of MASLD. She wasoriginally referred for increased liver enzymes in association with hepatic steatosis and possible splenomegaly on imaging. Doing well. Lost 3 lbs. Currently on Mounjaro. Tolerating meds without issue. Has cut down on alcohol intake to 2-3x per month (used to drink daily). No pruritus. No jaundice or rigors or steatorrhea. No changes in bowel habit and no hematemesis or melena. Does endorse reflux symptoms but no dysphagia or odynophagia or biliary colic or abdominal pain. Last C-scope 2 years ago. Per past notes: Background of RA on humira, DM, hypothyroidism, hyperlipidemia. No known chronic liver disease. Found to have cholestatic liver enzymes in 2019 which have persisted. No alcohol excess. No prior hepatitis or jaundice or IVDU. No OTC or herbal supplement use. No known FH of liver cirrhosis or HCC. Poor eating habits - fried food, burgets, high carbohydrate intake. Eats night snack at 1130pm. However, has lost 13 lbs having been started on Mounjaro. PMH: as above FH: no sig. No known CRC. Brother had cholecystectomy. SH: stopped smoking 20 years ago. 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 Physical Exam: BP 128/75 Pulse 100 Temp 97.5 ??F (36.4 ??C) (Temporal) Ht 1.702 m (5' 7 ) Wt 69.1 kg (152 lb 6.4 oz) SpO2 99% Wt Readings from Last 3 Encounters: 01/17/24 69.1 kg (152 lb 6.4 oz) 11/14/23 71.9 kg (158 lb 9.6 oz) 08/01/23 72.1 kg (159 lb) BMI 23.9 Affect good Neuro cognitively intact Abdomen no distension; no stigmata of CLD; no jaundice Limb: no peripheral edema Relevant test results: 07/2023: Creatinine 1.26 Albumin 4.3 ALP 104 ALT 12 AST 14 Bilirubin 0.2 HBV / HCV negative 11/2022: Liver screen negative 09/2022: Platelet 292 Glucose 143 Creatinine 1.11 Albumin 5.1 ALT 29 AST 25 ALP 108 (normal) Bilirubin 0.4 US 12/2021: fatty liver; GB stones; splenomegaly - 14.5cm Fibroscan 12/15/2022: XL probe Success 10/03 = 100% CAP: 323; IQR 53 Liver stiffness 7.7; IQR/Med: 16 (Elastograms not ideal; a few acceptable) C-scope: 3-4 years ago; advised to repeat in 5 years Assessment and Plan: MASLD Elevated liver enzymes Borderline splenomegaly on imaging Metabolic syndrome Recommended Fibroscan today and US RUQ. Also recommended labs including CMP. Reiterated association between NAFLD, metabolic risk factors, and cardiovascular risks; hence advised on lifestyle modification with aim of sustained weight loss. Specifically, advised to cut down oncarbohydrate intake and avoid night snacks. Fibroscan 01/17/2024: XL probe Success 08/01 = 100% CAP: 227; IQR: 4 Liver stiffness 9.9; IQR/Med: 8 - The probability of advanced liver fibrosis is: MODERATE. - The loss of ultrasound signal, (controlled attenuation parameter, CAP [dB/m]), indicates that theprobability of hepatic steatosis is: MILD. (Elastograms excellent) -> explained that liver stiffness readings are higher than before and that likelihood of having advanced liver disease is moderate. She had food < 4 hours prior to Fibroscan. Therefore, recommended FU with repeat Fibroscan in 6 months; will need NPO for 4 hours. If readingsare still high, to consider liver biopsy. *Check CBC / MCV. Please refer to the Fellow's note for full details of this visit. Once again, it was a pleasure participating in your patient's care. Please feel free to contact me if you have any questions or if I can be of any further assistance to your patients. Sincerely, THALIA DUNLAP MD PhD Professor of Internal Medicine Director, Division of Gastroenterology and Hepatology Co-Director, [facility] Overall time: to review charts, conduct physical examination, and to discuss investigations and management plans - 45 mins. Teaching physician attestation and verification: I attest that I have personally seen and examined this patient with the resident or fellow today and I confirm their assessment and plan. I have participated in medical decision making (or other relevant process) for this service as noted above. documented in this encounter Plan of Treatment Upcoming Encounters Date Type Department Care Team (Late st Contact Info) Description 01/09/2025 2:00 PM CDT Office Visit [facility] - GI [address] [place] [address], [place] [address] Thalia Dunlap MD [address] [place] [address] [address] [place] [address] 01/09/2025 2:30 PM CDT Office Visit [facility] - GI [address] [place] [address], [place] [address] Matias Lewis III, MD [address] [facility] 2L [place] [address] 02/25/2025 2:30 PM CDT Office Visit [facility] - Rheumatology [address] [place] [address], [place] [address] Lonnie Tai MD [address] [facility] [place], [place] [id number] Scheduled Orders Name Type Priority Associated Diagnoses Orde r Schedule US ABDOMEN LIMITED Imaging Routine Nonalcoholic fatty liver disease 1 Occurrences starting 01/17/2024 until 01/16/2025 documented as of this encounter Results * (ABNORMAL) CBC WITH DIFFERENTIAL (01/17/2024 3:24 PM [facility]) [facility] WBC 9.8 4.0 - 10.7 x10E9/L 01/17/2024 4:48 PM [facility] RBC Count 3.82(L) 3.90 - 5.20 x10E12/L 01/17/2024 4:48 PM [facility] Hemoglobin 10.1(L) 11.9 - 15.8 g/dL 01/17/2024 4:48 PM [facility] Hematocrit 29.9(L) 34.8 - 46.1 % 01/17/2024 4:48 PM [facility] MCV 78.3(L) 80.0 - 98.0 fL 01/17/2024 4:48 PM [facility] MCH 26.4(L) 26.7 - 33.6 pg 01/17/2024 4:48 PM [facility] MCHC 33.8 31.7 - 36.3 g/dL 01/17/2024 4:48 PM [facility] RDW-CV 14.1 11.3 - 14.8 % 01/17/2024 4:48 PM [facility] Platelet Count 301 150 - 420 x10E9/L 01/17/2024 4:48 PM [facility] MPV 11.2 7.8 - 11.4 fL 01/17/2024 4:48 PM [facility] Neutrophil % 74.2(H) 41.0 - 74.0 % 01/17/2024 4:48 PM [facility] Lymphocyte % 16.9(L) 17.0 - 47.0 % 01/17/2024 4:48 PM [facility] Monocyte % 6.0 3.0 - 11.0 % 01/17/2024 4:48 PM [facility] Eosinophil % 1.3 0.0 - 7.0 % 01/17/2024 4:48 PM [facility] Basophil % 1.1 0.0 - 1.6 % 01/17/2024 4:48 PM [facility] Immature Granulocytes % 0.5 0.0 - 1.0 % 01/17/2024 4:48 PM CDT [facility] Neutrophil Absolute 7.24 1.60 - 7.50 x10E9/L 01/17/2024 4:48 PM CDT [facility] Lymphocyte Absolute 1.65 1.00 - 4.40 x10E9/L 01/17/2024 4:48 PM T [facility] Monocyte Absolute 0.59 0.15 - 1.00 x10E9/L 01/17/2024 4:48 PM T [facility] Eosinophil Absolute 0.13 0.00 - 0.60 x10E9/L 01/17/2024 4:48 PM T [facility] Basophil Absolute 0.11 0.00 - 0.13 x10E9/L 01/17/2024 4:48 PM [facility] Blood BLOOD SPECIMEN / Unknown Lab Venipuncture / Unknown 01/17/2024 3:24 PM CDT 01/17/2024 4:28 PM CDT Thalia Dunlap MD LAB - HEMATOLOGY ORD ERABLES [facility] [address] [place] [address] [phone] * PT-INR [facility] (01/17/2024 3:24 PM CDT) PT 13.8 12.1 - 14.8 Seconds 01/17/2024 4:49 PM CDT [facility] INR 1.1 See Comment 01/17/2024 4:49 PM T [facility] Comment:The suggested therap eutic range for standard coumadin (warfarin) therapy is an INR of 2.0-3.0. For high-risk patients (Mechanical Mitral Valve Prosthesis, etc.), the suggested prophylactic therapeutic range is an INR of 2.5-3.5. Blood BLOOD SPECIMEN / Unknown Lab Venipuncture / Unknown 01/17/2024 3:24 PM CDT 01/17/2024 4:26 PM CDT Thalia Dunlap MD LAB - COAGULATION OR DERABLES [facility] [address] [place] [address], [facility] [phone] * (ABNORMAL) COMPREHENSIVE METABOLIC PANEL (01/17/2024 3:24 PM [facility]) BUN 12 7 - 26 mg/dL 01/17/2024 4:58 PM [facility] Creatinine 1.41(H) 0.56 - 0.96 mg/dL 01/17/2024 4:58 PM [facility] Sodium 132(L) 136 - 145 mmol/L 01/17/2024 4:58 PM [facility] Potassium 3.7 3.5 - 4.5 mmol/L 01/17/2024 4:58 PM [facility] Chloride 100 98 - 107 mmol/L 01/17/2024 4:58 PM [facility] CO2 22 22 - 29 mmol/L 01/17/2024 4:58 PM [facility] Glucose 166(H) 70 - 115 mg/dL 01/17/2024 4:58 PM [facility] Calcium 9.6 8.4 - 10.2 mg/dL 01/17/2024 4:58 PM [facility] Protein Total 6.2 6.0 - 8.3 g/dL 01/17/2024 4:58 PM [facility] Albumin 4.1 3.4 - 5.0 g/dL 01/17/2024 4:58 PM [facility] Bilirubin Total 0.4 0.2 - 1.2 mg/dL 01/17/2024 4:58 PM [facility] Alkaline Phosphatase 70 40 - 150 U/L 01/17/2024 4:58 PM [facility] ALT 16 5 - 55 U/L 01/17/2024 4:58 PM [facility] AST 16 5 - 34 U/L 01/17/2024 4:58 PM [facility] Anion Gap 10 6 - 16 01/17/2024 4:58 PM [facility] BUN/Creatinine Ratio 9 7 - 23 01/17/2024 4:58 PM [facility] Osmolality Calculated 278 275 - 295 mOsm/kg 01/17/2024 4:58 PM T [facility] Albumin/Globulin Ratio 2.0 1.1 - 2.3 01/17/2024 4:58 PM T [facility] eGFR by CKD-EPI 40(L) >=90 mL/min/1.7 3 m2 01/17/2024 4:58 PM CDT [facility] Blood BLOOD SPECIMEN / Unknown Lab Venipuncture / Unknown 01/17/2024 3:24 PM CDT 01/17/2024 4:28 PM CDT Thalia Dunlap MD LAB - CHEMISTRY ROBERT MAY [facility] [address] [place] [address], [facility] [phone] documented in this encounter Visit Diagnoses Diagnosis Nonalcoholic fatty liver disease- Primary Other chronic nonalcoholic liver disease Metabolic syndrome Dysmetabolic Syndrome X Elevated liver enzymes Nonspecific elevation of levels of transaminase or lactic acid dehydrogenase (LDH) documented in this encounter Care Teams Station Baggage Porter Relationship Specialty Start Date End Date Tanya Jane MD [address] [place] [address] PCP - General 01/05/18 07/09/24 documented as of this encounter
--- OUTSIDE RECORDS SUMMARY | 2024-11-09 23:14 | XMS_ITS | Encounter Summary ---
Author Organization [facility] Address [address] [facility] [place] [address] Care Team Providers Care Raftsman Name Role Phone Tanya Jane MD Primary Care Provider [phone] Encounter Details Date Type Department Care Team ([facility] Contact Info) Description 06/12/2023 Orders Only [facility] - Rheumatology [address] [place] [address] [place] [address] Lonnie Tai MD [address] [facility] [place] [address] Rheumatoid arthritis involving multiple joints (HCC); 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 arthritis (HCC); High risk medication use; 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 erosive rheumatoid arthritis (HCC) Social History Tobacco Use Types Packs/Day Years [...] Visit [facility] - GI [address] [facility], [place] [phone] Thalia Dunlap MD [address] [facility] [address] [place] [address] 01/09/2025 2:30 PM CDT Office Visit [facility] - GI [address] [facility], [place] [address] Matias Lewis III, MD [address] [facility] 2[address] [place] [phone] 02/25/2025 2:30 PM CDT Office Visit [facility] - Rheumatology [address] [facility], [place] [address] Lonnie Tai MD [address] [facility] [place] [address] documented as of this encounter Visit Diagnoses Diagnosis Rheumatoid arthritis involving multiple joints (HCC) 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 arthritis (HCC) Rheumatoid arthritis High risk medication use Encounter for long-term (current) use of other medications 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 erosive rheumatoid arthritis (HCC) documented in this encounter Care Teams Raftsman Relationship Specialty Start Date End Date Tanya Jane MD [address] [place] [address] [place] [address] PCP - General 01/05/18 07/09/24 documented as of this encounter
--- OUTSIDE RECORDS SUMMARY | 2024-11-09 23:14 | XMS_ITS | Encounter Summary ---
Author Organization [facility] Address [address] [facility] [place] [address] Care Team Providers Care Assistant Director Name Role Phone Tanya Jane MD Primary Care Provider [phone] Encounter Details Date Type Department Care Team (Latest Contact Info) Description 04/10/2023 Travel Social History Tobacco Use Types Packs/Day Years [...] PM CDT documented as of this encounter Plan of Treatment Upcoming Encounters Date Type Department Care Team (Late st Contact Info) Description 01/09/2025 2:00 PM CDT Office Visit [facility] - [address], [place] [phone] Thalia Dunlap MD [address] [place] [address] [address] [place] [address] 01/09/2025 2:30 PM CDT Office Visit [facility] - [address], [place] [phone] Matias Lewis III, MD [address] [place] [address] [address] [place] [address] 02/25/2025 2:30 PM CDT Office Visit [facility] - Rheumatology [address] [facility], [place] [address] Lonnie Tai MD [address] [facility] [place] [address] documented as of this encounter Visit Diagnoses Not on filedocumented in this encounter Care Teams Assistant Director Relationship Specialty Start Date End Date Tanya Jane MD [address] [place] [address] [place] [phone] PCP - General 01/05/18 07/09/24 documented as of this encounter
--- OUTSIDE RECORDS SUMMARY | 2024-11-09 23:14 | XMS_ITS | Encounter Summary ---
Author Organization [facility] Address [address] [facility] [place] [address] Care Team Providers Care Keno Writer / Runner Name Role Phone Eliana Mcneal Primary Care Provider [phone] Reason for Visit * Reason Comments Arthritis Encounter Details Date Type Department Care Team (Late st Contact Info) Description 08/27/2024 3:00 PM AFFILIATE MARKETING SPECIALIST Office Visit [facility] - Rheumatology [address] [facility], [place] [phone] Lonnie Tai MD [address] [facility] [place] [address] 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 erosive rheumatoid arthritis (HCC) (Primary Dx); 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 arthritis (HCC); Therapeutic drug monitoring; High risk medication use; Rheumatoid arthritis involving multiple joints (HCC) Social History Tobacco Use Types Packs/Day [...] Comments Blood Pressure 153/79 08/27/2024 3:05 PM AFFILIATE MARKETING SPECIALIST Pulse 95 08/27/2024 3:05 PM AFFILIATE MARKETING SPECIALIST Temperature 36.8 ??C (98.2 ??F) 08/27/2024 3:05 PM CS T Respiratory Rate - - Oxygen Saturation 98% 08/27/2024 3:05 PM AFFILIATE MARKETING SPECIALIST Inhaled Oxygen Concentration - - Weight 76.1 kg (167 lb 12.8 oz) 08/27/2024 3:05 PM AFFILIATE MARKETING SPECIALIST Height 170.2 cm (5' 7 ) 08/27/2024 3:05 PM AFFILIATE MARKETING SPECIALIST Body Mass Index 26.28 08/27/2024 3:05 PM AFFILIATE MARKETING SPECIALIST documented in this encounter Patient Instructions * Patient Instructions* Lonnie Tai MD - 08/27/2024 3:20 PM AFFILIATE MARKETING SPECIALIST You will need to get labs with urine studies and a chest x-ray today. Stop your diclofenac 75 mg twice a day. We are monitoring your kidney function. If needed, we will order a kidney ultrasound Return to clinic: [address] Davidson/ Dr. Tai To cancel, schedule, or reschedule an appointment, call [phone] or [phone], option 1. If you choose to get labs or imaging at an outside facility, it is your (as the patient) responsibility to have these results sent to us. Our fax number is [phone]. If you need a refill on your medication, please call your pharmacy first to have them send us a refill request. If you have an emergency after hours, you can reach the infection control manager fellow by calling the steam drier operator [phone], but please also seek out appropriate care at Urgent Care or Emergency Room. LIATE MARKETING SPECIALIST documented in this encounter Progress Notes * Lonnie Tai MD - 08/27/2024 2:12 PM CST [facility] Visit Referring Physician:@ Tanya Jane MD PCP:@ Tanya Jane MD CC: Fu for seropositive RA Interval History Pt has continued Enbrel 50 mg SC weekly. Has continued diclofenac 75 mg BID. Has continued HCQ 300 mg daily. Due for OCT next month. States her hands are doing pretty well. No complaints. Slight pain in her MCP of right hand. Denies any rashes, injection site reactions, no new swelling, no eye changes. Has never seen nephrology, has never had issues that she knows of with controlling her BP. ROS: Other systems reviewed and negative or noncontributory except as stated in the HPI. Current Outpatient Medications: amLODIPine (NORVASC) 5 MG tablet, Take 1 (one) tablet by mouth once daily, Disp: , Rfl: aspirin EC (Ecotrin) 81 MG tablet, Take 1 (one) tablet by mouth every 24 hours, Disp: , Rfl: cyanocobalamin (Vitamin B-12) injection, Inject 1,000 (one thousand) mcg subcutaneously every 30 days, Disp: , Rfl: diclofenac sodium EC (Voltaren) 75 MG tablet, Take 1 (one) tablet by mouth 2 times daily, Disp: 180tablet, Rfl: 3 etanercept (Enbrel) 50 MG/ML auto-injector pen, Inject 50 (fifty) mg subcutaneously every 7 days, Disp: 4 mL, Rfl: 5 fenofibrate (LOFIBRA) 160 MG tablet, Take 1 (one) tablet by mouth, Disp: , Rfl: GLIPIZIDE XL 10 MG tablet, Take 1 (one) tablet by mouth 2 times daily, Disp: , Rfl: 3 hydroCHLOROthiazide (HYDRODIURIL) 25 MG tablet, Take 1 (one) tablet by mouth once daily, Disp: , Rfl: HYDROcodone-acetaminophen ([place]) 5-325 MG tablet, Take 1 (one) tablet by mouth every 6 hours as needed for Pain, Disp: , Rfl: hydroxychloroquine (Plaquenil) 200 MG tablet, Take 1.5 (one and one-half) tablets by mouth 2 times daily, Disp: 270 tablet, Rfl: 3 isosorbide mononitrate CR 24hr (IMDUR) 30 MG tablet, Take 1 (one) tablet by mouth once daily, Disp:, Rfl: JANUVIA 100 MG tablet, Take 1 (one) tablet by mouth once daily, Disp: , Rfl: leflunomide (Arava) 20 MG tablet, Take 1 (one) tablet by mouth once daily, Disp: , Rfl: levothyroxine (SYNTHROID) 75 MCG tablet, Take 1 (one) tablet by mouth DAILY, Disp: , Rfl: losartan (COZAAR) 100 MG tablet, Take 1 (one) tablet by mouth once daily, Disp: , Rfl: 4 metFORMIN (GLUCOPHAGE) 1000 MG tablet, Take 1 (one) tablet by mouth BID, Disp: , Rfl: 2 Mounjaro 5 MG/0.5ML injection, Inject 5 (five) mg subcutaneously every 7 days (Patient not taking: Reported on 07/10/2024), Disp: , Rfl: nitroGLYCERIN (Nitrostat) 0.4 MG tablet, Dissolve 1 (one) tablet under the tongue, Disp: , Rfl: omeprazole (PRILOSEC) 40 MG capsule, Take 1 (one) capsule by mouth daily before breakfast, Disp: , Rfl: ONETOUCH VERIO test strip, Use 1 (one) strip as directed, Disp: , Rfl: 4 potassium chloride ER (KLOR-CON) 20 MEQ tablet, Take 1 (one) tablet by mouth 2 times daily, Disp: ,Rfl: simvastatin (ZOCOR) 20 MG tablet, Take 1 (one) tablet by mouth, Disp: , Rfl: valACYclovir (Valtrex) 1 GM tablet, Take 1 tablet every 12 hours by oral route for 7 days. (Patientnot taking: Reported on 07/10/2024), Disp: , Rfl: vitamin D, ergocalciferol, (Drisdol) 1.25 MG (10694 UT) capsule, Take 1 (one) capsule by mouth every 7 days, Disp: , Rfl: Allergies Allergen Reactions Codeine Nausea and/or Vomiting Past Medical History: Diagnosis Date Hypertension Rheumatoid arthritis (HCC) Type 2 diabetes mellitus (HCC) Past Surgical History: Procedure Laterality Date Hernia Repair HX APPENDECTOMY Ovarian Cyst Removal AR REPAIR OF NASAL SEPTUM 1970 to help breathing but unsure if really ever need Tonsillectomy Social History Socioeconomic History Marital status: Tobacco Use Smoking status: Former Smokeless tobacco: Never Vaping Use Vaping status: Never Used Substance and Sexual Activity Alcohol use: Not Currently Alcohol/week: 1.0 standard drink of alcohol Types: 1 Standard drinks or equivalent per week Comment: occaisionally Drug use: Yes Types: Marijuana No family history on file. Physical Exam: There were no vitals taken for this visit. General: Alert. Oriented. NAD. Skin: Normal texture [...] no deviations Labs: Recent Labs Component Name 02/07/24 0745 01/17/24 1524 06/29/23 1231 12/15/22 1435 09/22/22 0824 11/01/21 0851 08/05/21 0832 04/29/21 0809 03/12/18 0956 12/27/17 0919 11/02/17 0703 09/19/17 0731 08/08/17 0740 06/30/17 0732 WBC 7.0 9.8 7.1 9.4 7.9 7.5 7.8 6.8 - 8.0 8.1 6.6 7.4 7.4 NEUTABS - - 5.28 - - - - - - 5.6 5.0 4.2 4,573 4,677 LYMPHABS 1.8 1.65 - - 2.0 1.9 1.3 1.7 - - - - - - HGB 10.3* 10.1* 11.0* 11.9* 12.3 12.5 12.2 12.3 - 12.7 13.3 12.9 12.8 11.7 MCV 81 78.3* 80.3* 81.4 80 86 89 95 - 89 85 89 85.5 85.4 RDWCV - 14.1 - - - - - - - - - - - - PLTCOUNT 297 301 213 293 292 253 198 237 - - - - - - - = values in this interval not displayed. Recent Labs Component Name 02/07/24 0745 01/17/24 1524 08/16/23 0836 06/29/23 1231 12/15/22 1435 09/22/22 0824 BUN 9 12 10 7 8 7* CREATININE 1.66* 1.41* 1.26* 1.13* 1.10* 1.11* EGFR 33* 40* 46* 52* 54* 53* AST 17 16 14 16 14 25 ALT 17 16 12 16 14 29 Imaging: PROCEDURE: XR FOREARM LEFT 2VW, XR FOOT RIGHT 3VW OR MORE, XR FOOT LEFT 3VW OR MORE, XR WRIST RIGHT 3VW OR MORE, XR WRIST LEFT 3VW OR MORE, XR HAND RIGHT 3VW OR MORE, XR HAND LEFT 3VW OR MORE, DATE/TIME OF EXAM: 12/15/2022 2:23 PM, LOCATION [facility] INDICATION: M05.9: Rheumatoid arthritis with positive rheumatoid factor, involving unspecified site ([facility]) ADDITIONAL CLINICAL INFORMATION: Ordering Provider Reason For [...] Minimal degenerative change. > Interpreting Provider: Terrance Madrigal MD on [...] pt), continue HCQ 300 mg daily. - Stop diclofenac 75 md BID due to CKD # CKD vs NATHALIA Creatinine notedly elevated the past few months. Last 1.6 - UA, UPC and repeat Cr. If still abnormal then will order renal US and sending to nephro. Immunosuppression due to 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 - Latent infection screen: HBsAb (-) HBsAg (-) HBcAb (-) HCV Ab (-) 12/15/22 TB quant (-) 09/22/22 - Immunizations per PCP: for all patients on immunosuppressive therapy we recommend annual influenza vaccine, COVID19 vaccine, Prevnar, Pneumovax, Shingrix. - Patient advised to contact clinic in case of any infections or antibiotic use. Discussed with Dr. Davidson. Agree with above. Patient no showed her last appointment. Mild arthralgias. No other new symptoms. PE shows 1-3rd MCPs SfT0; CORRECTION prominence. No levi synovitis.Will [id number] mg HCQ/d, 50 mg Enbrel SQ/week and needs TB/Hep screening. Will hold Diclofenac pending lab andadvise further.. Needs eye exam. Labs today as below.Discussed with patient. RTO in 3-4 months.I observed,examined, and discussed with Dr. Tai. I confirm her findings and note. Dennis Davidson MD, FACP, FAAP, MACR Roller Checker and Pediatric Rheumatology Professor of Internal Medicine,Pediatrics, and Molecular Immunology [facility] Lonnie Tai MD Rheumatology Fellow [facility] [employer] The following were ordered during this visit: No orders of the defined types were placed in this encounter. LIATE MARKETING SPECIALIST documented in this encounter Plan of Treatment Upcoming Encounters Date Type Department Care Team (Late st Contact Info) Description 01/09/2025 2:00 PM CDT Office Visit [facility] - [address] [phone] [place] [address] [place] [address] [address] [place] [address] 01/09/2025 2:30 PM CDT Office Visit [facility] - GI [address] [place] [address], [place] [address] Matias Lewis III, MD [address] [place] [address] [address] [place] [address] 02/25/2025 2:30 PM CDT Office Visit [facility] - Rheumatology [address] [place] [address], [place] [address] Lonnie Tai MD [address] [facility] [place] [address] documented as of this encounter Results * PROTEIN CREATININE RATIO URINE RANDOM PNL (08/27/2024 4:00 PM AFFILIATE MARKETING SPECIALIST) Pathologist [facility] Protein Urine <7 Not Established mg/dL 08/27/2024 5:18 PM [facility] Creatinine Urine 26.51 Not Established mg/dL 08/27/2024 5:18 PM AFFILIATE MARKETING SPECIALIST [facility] Protein/Creatinin e Ratio Urine 08/27/2024 5:18 PM [facility] Comment:Unable to calculate ratio because the analyte concentration is outside the instrument measuring range. Urine URINE SPECIMEN OBTAINED BY CLEAN CATCH PROCEDURE / Unknown Collection / Unknown 08/27/2024 4:00 PM AFFILIATE MARKETING SPECIALIST 08/27/2024 4:29 PM AFFILIATE MARKETING SPECIALIST Lonnie Tai MD LAB - URINE CHEM ISTRY ORDERABLES [facility] [address] [place] [address], [facility] [phone] * (ABNORMAL) URINALYSIS W/MICROSCOPIC REFLEX TO CULTURE (08/27/2024 4:00 PM AFFILIATE MARKETING SPECIALIST) Color UA Straw Straw, Yellow 08/27/2024 4:45 PM [facility] Clarity UA Clear Clear 08/27/2024 4:45 PM [facility] Specific Costa UA 1.002(L) 1.005 - 1.030 08/27/2024 4:45 PM [facility] pH UA 6.0 5.0 - 8.0 pH 08/27/2024 4:45 PM [facility] Protein UA Negative Negative 08/27/2024 4:45 PM [facility] Glucose UA 3+(A) Negative 08/27/2024 4:45 PM [facility] Ketone UA Negative Negative 08/27/2024 4:45 PM [facility] Bilirubin UA Negative Negative 08/27/2024 4:45 PM [facility] Blood UA Negative Negative 08/27/2024 4:45 PM [facility] Nitrite UA Negative Negative 08/27/2024 4:45 PM [facility] Leukocyte Esterase Negative Negative 08/27/2024 4:45 PM [facility] Urobilinogen UA Negative Negative mg/dL 08/27/2024 4:45 PM [facility] RBC UA None Seen None Seen, 0-2, 3-5 /HPF 08/27/2024 4:45 PM [facility] WBC UA 0-5 None Seen, 0-5 /HPF 08/27/2024 4:45 PM [facility] Bacteria UA Trace(A) None /HPF 08/27/2024 4:45 PM [facility] Squamous Epithelial Cells UA 0-2 None Seen, 0-2, 3-5 /HPF 08/27/2024 4:45 PM [facility] Urine URINE SPECIMEN OBTAINED BY CLEAN CATCH PROCEDURE / Unknown Collection / Unknown 08/27/2024 4:00 PM AFFILIATE MARKETING SPECIALIST 08/27/2024 4:29 PM [facility] - 08/27/2024 4:45 PM [facility] Culture Not Indicated Lonnie Tai MD LAB - URINALYSIS ORDERABLES Performing Organization Address City/State/[facility] Co de Phone Number [facility] [address] [place] [phone], [facility] [phone] * HEPATITIS B SURFACE ANTIGEN W RFLX CONFIRMATION (08/27/2024 3:52 PM AFFILIATE MARKETING SPECIALIST) Hepatitis B Virus Surface Antigen Non-reacti ve Non-reacti ve 08/27/2024 5:26 PM AFFILIATE MARKETING SPECIALIST [facility] Blood BLOOD SPECIMEN / Unknown Lab Venipuncture / Unknown 08/27/2024 3:52 PM AFFILIATE MARKETING SPECIALIST 08/27/2024 4:29 PM AFFILIATE MARKETING SPECIALIST Lonnie Tai MD LAB - CHEMISTRY ORDERABLES Performing Organization Address [facility]/ZIP Co de Phone Number [address] [address], [facility] [phone] * HEPATITIS B SURFACE ANTIBODY (08/27/2024 3:52 PM AFFILIATE MARKETING SPECIALIST) Pathologist [facility] Hepatitis B Virus Surface Antibody Non-react comfort Non-react comfort 08/27/2024 5:26 PM [facility] Comment: < 8 mIU/mL Hepatitis B surface Antibody (HBsAb). Nonreactive for HBsAb - individual is considered not immune to Hepatitis B Virus infection. Hepatitis B Surface Antibody Quantitative 0.0 <8.0 mIU/mL 08/27/2024 5:26 PM [facility] Comment: Hepatitis B Surface Antibody Numeric Result Interpretation: ? Nonreactive: ?<8.0 mIU/mL ? Indeterminate: ??8.0 - 12.0 mIU/mL ? Reactive: ?>12.0 mIU/mL ? Blood BLOOD SPECIMEN / Unknown Lab Venipuncture / Unknown 08/27/2024 3:52 PM AFFILIATE MARKETING SPECIALIST 08/27/2024 4:29 PM AFFILIATE MARKETING SPECIALIST Lonnie Tai MD LAB - CHEMISTRY ORDERABLES Performing Organization Address City/[facility]/ZIP Co de Phone Number [address] [address], [facility] [phone] * HEPATITIS B CORE ANTIBODY TOTAL (08/27/2024 3:52 PM AFFILIATE MARKETING SPECIALIST) [facility] Antibody Total Non-reacti ve Non-reacti ve 08/27/2024 5:26 PM AFFILIATE MARKETING SPECIALIST [facility] Blood BLOOD SPECIMEN / Unknown Lab Venipuncture / Unknown 08/27/2024 3:52 PM AFFILIATE MARKETING SPECIALIST 08/27/2024 4:29 PM AFFILIATE MARKETING SPECIALIST Lonnie Tai MD LAB - CHEMISTRY ORDERABLES [facility] [address] [place] [address], [facility] [phone] * QUANTIFERON-TB GOLD PLUS 4-TUBE (08/27/2024 3:52 PM AFFILIATE MARKETING SPECIALIST) [facility] QuantiFERON Mitogen Minus NIL 9.96 IU/mL 08/29/2024 8:21 PM AFFILIATE MARKETING SPECIALIST [facility]) QuantiFERON Nil Value 0.04 IU/mL 08/29/2024 8:21 PM AFFILIATE MARKETING SPECIALIST [facility]) QuantiFERON Plus TB1 Minus NIL 0.01 <=0.34 IU/mL 08/29/2024 8:21 PM AFFILIATE MARKETING SPECIALIST [facility]) QuantiFERON Plus TB2 Minus NIL 0.00 <=0.34 IU/mL 08/29/2024 8:21 PM [facility]) QuantiFERON-TB Gold Plus Negative Negative 08/29/2024 8:21 PM AFFILIATE MARKETING SPECIALIST [facility]) Comment: INTERPRETIVE INFORMATION:Quantiferon TB Gold Plus Interferon [...] Mycobacterium tuberculosis Infection -- [place], 2010 (http://www.cdc.gov/mmwr/preview/mmwrhtml/td3220d0.htm), for more information concerning test performance in low-prevalence populations and use in occupational screening. Performed By: [employer] [address] [place] [address] Fountain Clerk: Kleber Choudhary MD, PhD CLIA Number: [id number] Blood BLOOD SPECIMEN / Unknown Lab Venipuncture / Unknown 08/27/2024 3:52 PM AFFILIATE MARKETING SPECIALIST 08/27/2024 4:38 PM AFFILIATE MARKETING SPECIALIST Lonnie Tai MD LAB - CHEMISTRY ORDERABLES [employer] ([facility]) [address] [place] [address], [facility] * XR Chest 2Vw (08/27/2024 3:35 PM AFFILIATE MARKETING SPECIALIST) Anatomical Region Laterality Modality Chest Digital Radiogra phy 08/27/2024 3:38 PM AFFILIATE MARKETING SPECIALIST Impressions 08/27/2024 3:39 PM AFFILIATE MARKETING SPECIALIST IMPRESSION: No acute cardiopulmonary abnormalities. > Interpreting Provider: Mattie Nobles MD on 08/27/2024 3:39 PM Narrative 08/27/2024 3:39 PM AFFILIATE MARKETING SPECIALIST PROCEDURE: ??XR CHEST 2VW DATE/TIME OF EXAM: [...] Lonnie Tai MD DIAGNOSTIC IMAGI NG ORDERABLES documented in this encounter Visit Diagnoses Diagnosis 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 erosive rheumatoid arthritis (HCC)- Primary 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 arthritis (HCC) Rheumatoid arthritis Therapeutic drug monitoring Encounter for therapeutic drug monitoring High risk medication use Encounter for long-term (current) use of other medications Rheumatoid arthritis involving multiple joints (HCC) 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 erosive rheumatoid arthritis (HCC) 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 arthritis (HCC) Rheumatoid arthritis Therapeutic drug monitoring Encounter for therapeutic drug monitoring High risk medication use Encounter for long-term (current) use of other medications Rheumatoid arthritis involving multiple joints (HCC) documented in this encounter Care Teams Keno Writer / Runner Relationship Specialty Start Date End Date Eliana Mcneal [address] [place] [address] PCP - General 07/10/24 documented as of this encounter
--- OUTSIDE RECORDS SUMMARY | 2024-11-09 23:14 | XMS_ITS | Encounter Summary ---
Author Organization [facility] Health Address [address] [place] [address] Care Team Providers Care Desk Top Publisher Name Role Phone Tanya Jane MD Primary Care Provider [phone] Reason for Visit * Reason Comments Arthritis 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 RA Encounter Details Date Type Department Care Team (Late st Contact Info) Description 05/16/2023 3:30 PM CDT Office Visit [facility] - Rheumatology [address] [facility] [place] [phone] Lonnie Tai MD [address] [facility] [place] [address] Rheumatoid arthritis involving multiple joints (HCC) (Primary Dx); 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 arthritis (HCC); High risk medication [...] AM CDT documented as of this encounter Last Filed Vital Signs Vital Sign Reading Time Taken Comments Blood Pressure 120/64 05/16/2023 3:00 PM CDT Pulse 80 05/16/2023 3:00 PM CDT Temperature 36.3 ??C (97.3 ??F) 05/16/2023 3:00 PM CD T Respiratory Rate - - Oxygen Saturation 97% 05/16/2023 3:00 PM CDT Inhaled Oxygen Concentration - - Weight 72.8 kg (160 lb 6.4 oz) 05/16/2023 3:00 P M CDT Height 168.9 cm (5' 6.5 ) 05/16/2023 3:00 PM CDT Body Mass Index 25.5 05/16/2023 3:00 PM CDT documented in this encounter Patient Instructions * Patient Instructions* Lonnie Tai MD - 05/16/2023 3:47 PM CDT You will need to get labs done in 4 weeks. We planned to increase your Meloxicam to 15mg BID (double the dose you are currently on). We will send a refill. Return to clinic on Aug [address] Tai and Dr. Davidson. You already have an appointment. To cancel, schedule, or reschedule an appointment, call [phone] or [phone], option 1. If you choose to get labs or imaging at an outside facility, it is your (as the patient) responsibility to have these results sent to us. Our fax number is [phone]. If you need a refill on your medication, please call your pharmacy first to have them send us a refill request. If you have an emergency after hours, you can reach the information writer fellow by calling the certifed refrigeration operator [phone], but please also seek out appropriate care at Urgent Care or Emergency Room. documented in this encounter Progress Notes * Lonnie Tai MD - 05/16/2023 3:34 PM CDT [facility]ology Clinic Visit Referring Physician:@ Tanya Jane MD PCP:@ Tanya Jane MD CC: Fu for seropositive RA HPI: Previously seen on 12/20/22 by Elyse Merchant/Theiroff on Enbrel monotherapy. Pt states since last visit, she noted two new nodules on her left elbow which sends intermittent pain radiating to her fingertips. She is compliant with her Enbrel qweek. Takes meloxicam 7.5mg daily for pain. Denies stiffness. ROS: Other systems reviewed and negative or noncontributory except as stated in the HPI. Current Outpatient Medications: ??? amLODIPine (NORVASC) 5 MG tablet, Take 5 mg by mouth once daily, Disp: , Rfl: ??? aspirin EC (Ecotrin) 81 MG tablet, Take 1 (one) tablet by mouth every 24 hours, Disp: , Rfl: ??? azithromycin (Zithromax) 250 MG tablet, TAKE 2 TABLETS (500 MG) BY ORAL ROUTE ONCE DAILY FOR 1 DAY THEN 1 TABLET (250 MG) BY ORAL ROUTE ONCE DAILY FOR 4 DAYS, Disp: , Rfl: ??? cyanocobalamin (Vitamin B-12) injection, Inject 1,000 (one thousand) mcg subcutaneously every 30 days, Disp: , Rfl: ??? etanercept (Enbrel) 50 MG/ML auto-injector pen, Inject 50 (fifty) mg subcutaneously every 7 days, Disp: 4 mL, Rfl: 5 ??? fenofibrate (LOFIBRA) 160 MG tablet, Take 160 mg by mouth., Disp: , Rfl: ??? fluconazole (Diflucan) 150 MG tablet, TAKE 1 TABLET BY MOUTH EVERY DAY FOR 3 DAYS, Disp: , Rfl: ??? GLIPIZIDE XL 10 MG tablet, Take 10 mg by mouth 2 times daily, Disp: , Rfl: 3 ??? hydroCHLOROthiazide (HYDRODIURIL) 25 MG tablet, Take 1 tablet by mouth once daily, Disp: , Rfl: ??? HYDROcodone-acetaminophen (Lodi) 5-325 MG tablet, Take 1 (one) tablet by mouth every 6 hours as needed for Pain, Disp: , Rfl: ??? isosorbide mononitrate CR 24hr (IMDUR) 30 MG tablet, Take 1 tablet by mouth once daily, Disp: ,Rfl: ??? JANUVIA 100 MG tablet, Take 100 mg by mouth once daily, Disp: , Rfl: ??? leflunomide (Arava) 20 MG tablet, Take 1 (one) tablet by mouth once daily, Disp: , Rfl: ??? levothyroxine (SYNTHROID) 75 MCG tablet, Take 75 mcg by mouth DAILY., Disp: , Rfl: ??? losartan (COZAAR) 100 MG tablet, Take 100 mg by mouth once daily, Disp: , Rfl: 4 ??? meloxicam (Mobic) 7.5 MG tablet, Take 1 (one) tablet by mouth once daily as needed, Disp: 90 tablet, Rfl: 1 ??? metFORMIN (GLUCOPHAGE) 1000 MG tablet, Take 1 tablet by mouth BID., Disp: , Rfl: 2 ??? Mounjaro 5 MG/0.5ML injection, Inject 5 (five) mg subcutaneously every 7 days, Disp: , Rfl: ??? nitroGLYCERIN (NITROSTAT) 0.4 MG tablet, Dissolve 1 tablet under the tongue as directed, Disp: , Rfl: ??? nystatin (Mycostatin) 251423 UNIT/GM cream, APPLY TOPICALLY TO THE AFFECTED AREA TWICE DAILY FOR 7 DAYS, Disp: , Rfl: ??? omeprazole (PRILOSEC) 40 MG capsule, Take 40 mg by mouth daily before breakfast , Disp: , Rfl: ??? ONETOUCH VERIO test strip, Use 1 strip as directed , Disp: , Rfl: 4 ??? potassium chloride ER (KLOR-CON) 20 MEQ tablet, Take 20 mEq by mouth 2 times daily , Disp: , Rfl: ??? predniSONE (Deltasone) 20 MG tablet, TAKE 2 TABLETS BY MOUTH EVERY MORNING FOR 5 DAYS, Disp: , Rfl: ??? simvastatin (ZOCOR) 20 MG tablet, Take 20 mg by mouth., Disp: , Rfl: ??? triamcinolone acetonide (Kenalog) 0.1 % ointment, APPLY A THIN LAYER TO THE AFFECTED AREA(S) BYTOPICAL ROUTE 2 TIMES PER DAY prn rash, Disp: , Rfl: ??? valACYclovir (Valtrex) 1 GM tablet, Take 1 tablet every 12 hours by oral route for 7 days., Disp: , Rfl: ??? vitamin D, ergocalciferol, (Drisdol) 1.25 MG (61167 UT) capsule, Take 1 (one) capsule by mouth every 7 days, Disp: , Rfl: Allergies Allergen Reactions ??? Codeine Nausea and/or Vomiting Past Medical History: Diagnosis Date ??? Hypertension ??? Rheumatoid arthritis (CMS/HCC) ??? Type 2 diabetes mellitus (CMS/HCC) Past Surgical History: Procedure Laterality Date ??? Hernia Repair ??? HX APPENDECTOMY ??? Ovarian Cyst Removal ??? [place] REPAIR OF NASAL SEPTUM 1970 to help [...] family history on file. Physical Exam: BP 120/64 (BP SITE: LEFT ARM, BP POSITION: SITTING, BP CUFF SIZE: 11L) Pulse 80 Temp 97.3 ??F (36.3 ??C) (Temporal) Ht 1.689 m (5' 6.5 ) Wt 72.8 kg (160 lb 6.4 oz) SpO2 97% General: Alert. Oriented. NAD. Skin: Normal texture [...] nodules over left elbow and proximal forearm. Lower Extremity: No lesions noted, no deviations Labs: Recent Labs Component Name 12/15/22 1435 09/22/22 0824 11/01/21 0851 08/05/21 0832 04/29/21 0809 03/02/21 0822 12/11/20 0831 03/12/18 0956 12/27/17 0919 11/02/17 0703 09/19/17 0731 08/08/17 0740 06/30/17 0732 04/26/17 0820 WBC 9.4 7.9 7.5 7.8 6.8 6.3 8.4 - 8.0 8.1 6.6 7.4 7.4 7.6 NEUTABS - - - - - - - - 5.6 5.0 4.2 4,573 4,677 4,894 LYMPHABS - 2.0 1.9 1.3 1.7 1.6 1.6 - - - - - - - HGB 11.9* 12.3 12.5 12.2 12.3 12.3 11.3 - 12.7 13.3 12.9 12.8 11.7 12.1 MCV 81.4 80 86 89 95 98* 99* - 89 85 89 85.5 85.4 85.3 PLTCOUNT 293 292 253 198 237 242 294 - - - - - - - - = values in this interval not displayed. Recent Labs Component Name 12/15/22 1435 09/22/22 0824 11/01/21 0851 08/05/21 0832 04/29/21 0809 03/02/21 0822 BUN 8 7* 9 10 10 7* CREATININE 1.10* 1.11* 1.12* 1.23* 1.10* 1.09* EGFR 54* 53* 50* 45* 52* 52* AST 14 25 22 25 33 34 ALT 14 29 38* 38* 49* 36* Imaging: PROCEDURE: ??XR FOREARM LEFT 2VW, XR FOOT RIGHT 3VW OR MORE, XR FOOT LEFT 3VW OR MORE, XR WRIST RIGHT 3VW OR MORE, XR WRIST LEFT 3VW OR MORE, XR HAND RIGHT 3VW OR MORE, XR HAND LEFT 3VW OR MORE, DATE/TIME OF EXAM: ??12/15/2022 2:23 PM, LOCATION ??[facility] ?? INDICATION: M05.9: Rheumatoid arthritis with positive rheumatoid factor, involving unspecified site ([facility]/HCC) ?? ADDITIONAL CLINICAL INFORMATION: Ordering Provider Reason [...] MD on 12/15/2022 2:59 PM Assessment/ Plan: 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 erosive rheumatoid arthritis Onset 2013. RF 173. CCP > 250. Erosions+. Nodules on left elbow present at last visit but pt nowcomplaining of worsening pain radiating to hand. Spoke with her about increasing meloxicam to 15mg qday. Elevated ALT on leflunomide. Intolerant of Humira. Remains on Enbrel monotherapy. Clinically well controlled. ~4 years between hand x-rays, will consider repeating at follow up to monitor for pro gression and consideration of changing medications. Patient in agreement. - continue Enbrel 50 mg SC Q7D ?? Immunosuppression due to 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 - [...] with Dr. Stuart Tai MD Rheumatology Fellow [facility] The following were ordered during this visit: No orders of the defined types were placed in this encounter. Associated attestation - Dennis Davidson MD - 05/18/2023 4:09 PM CDT (Prob #1) RA (RF/Ab to CCP +) (Prob #2) Co-morbidities (Subj) Patient never previously seen by me. Previously seen in our Division. Patient remains on 50 mg Enbrel SQ/week and meloxicam 7.5 mg PRN.Recent development of SQ nodules left elbow area. No AM stiffness (Obj) BP 120/64 (BP SITE: LEFT ARM, BP POSITION: SITTING, BP CUFF SIZE: 11L) Pulse 80 Temp 97.3??F (36.3 ??C) (Temporal) Ht 1.689 m (5' 6.5 ) Wt 72.8 kg (160 lb 6.4 oz) SpO2 97% ' (Skin) Dry without eruptions. Rubbery nodules over R/L elbows with no ulcerations. (HEENT) No mucosal ulcers. (General) Unremarkable (Extrem) 1-3rd MCPs SfT0; L wrist Sf. (Assess) Clinically stable with newnodule formation (Plan) Continue same meds with yearly TB/Hep screening. Labs now. RTO in 4-6 mothns. I observed,examined, and discussed with Dr. Tai. I confirm her findings and note. Dennis Davidson MD, FACP, FAAP, MACR Shotgun Shell Reprinting Unit Operator and Pediatric Rheumatology Professor of Internal Medicine,Pediatrics, and Molecular Immunology [facility] documented in this encounter Plan of Treatment Upcoming Encounters Date Type Department Care Team (Late st Contact Info) Description 01/09/2025 2:00 PM CDT Office Visit [facility] - [address], [place] [address] Thalia Dunlap MD [address] [place] [address] [address] [place] [address] 01/09/2025 2:30 PM CDT Office Visit [facility] - [address], [place] [address] Matias Lewis III, MD [address] [place] [address] [address] [address] 02/25/2025 2:30 PM CDT Office Visit [facility] - Rheumatology [address] [facility] [place] [phone] Lonnie Tai MD [address] [facility] [place] [address] Scheduled Orders Name Type Priority Associated Diagnoses Orde r Schedule COMPREHENSIVE METABOLIC PANEL Lab Routine Rheumatoid arthritis involving multiple joints (HCC) 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 arthritis (HCC) High risk medication use 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 erosive rheumatoid arthritis (HCC) Expected: 06/12/2023, Expires: 05/16/2024 documented as of this encounter Visit Diagnoses Diagnosis Rheumatoid arthritis involving multiple joints (HCC)- Primary 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 arthritis (HCC) Rheumatoid arthritis High risk medication use Encounter for long-term (current) use of other medications 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 erosive rheumatoid arthritis (HCC) documented in this encounter Care Teams Desk Top Publisher Relationship Specialty Start Date End Date Tanya Jane MD [address] [place] [address] DAVID Jackman [phone] PCP - General 01/05/18 07/09/24 documented as of this encounter
--- OUTSIDE RECORDS SUMMARY | 2024-11-09 23:14 | XMS_ITS | Encounter Summary ---
Author Organization [facility] Address [address] [facility] [place] [address] Care Team Providers Care Automotive Engineering Technician Name Role Phone Eliana Mcneal Primary Care Provider [phone] Reason for Visit * Reason Onset Date Comments MEDICATION REFILL 07/18/2024 Encounter Details Date Type Department Care Team (Late st Contact Info) Description 07/18/2024 Refill [facility] - Rheumatology [address] [facility] [place] [phone] Lonnie Tai MD [address] [facility] [place] [address] MEDICATION REFILL Social History Tobacco Use Types [...] encounter Miscellaneous Notes * Telephone Encounter - Eleanor Gallo - 07/18/2024 8:21 AM CDT Refill Request Kianna Hill TREVON: 11/14/2023 NOV scheduled: 08/27/2024 LRF: 01/18/2024 Qty Disp: 4 mL # of refills: 5 Allergies: Allergies Allergen Reactions Codeine Nausea and/or Vomiting Pended Medication Order: Requested Prescriptions Pending Prescriptions Disp Refills etanercept (Enbrel) 50 MG/ML auto-injector pen 4 mL 5 Sig: Inject 50 (fifty) mg subcutaneously every 7 days documented in this encounter Plan of Treatment Upcoming Encounters Date Type Department Care Team (Late st Contact Info) Description 01/09/2025 2:00 PM CDT Office Visit [facility] - GI [address] [place] [address], [place] [phone] Thalia Dunlap MD [address] [place] [address] [address] [place] [phone] 01/09/2025 2:30 PM CDT Office Visit [facility] - GI [address] [place] [address], [place] [phone] Matias Lweis III, MD [address] [place] [address] [address] [place] [phone] 02/25/2025 2:30 PM CDT Office Visit [facility] - Rheumatology [address] [place] [address], [place] [address] Lonnie Tai MD [address] [facility] [place] [address] documented as of this encounter Visit Diagnoses Diagnosis 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 erosive rheumatoid arthritis (HCC) documented in this encounter Care Teams Automotive Engineering Technician Relationship Specialty Start Date End Date Eliana Mcneal [address] [place] [phone] PCP - General 07/10/24 documented as of this encounter
--- OUTSIDE RECORDS SUMMARY | 2024-11-09 23:14 | XMS_ITS | Encounter Summary ---
Author Organization [facility] Address [address] [place] [address] Care Team Providers Care Dragline Operator Helper Name Role Phone Eliana Mcneal Primary Care Provider [phone] Encounter Details Date Type Department Care Team (Latest Contact Info) Description 08/27/2024 3:34 PM SERVICE PARTS DRIVER - 08/27/2024 11:59 PM SERVICE PARTS DRIVER Hospital Encounter [facility] OP DRAW STATION [address] [place] [phone] Discharge Disposition: Home or Self Care Social [...] thousand) mcg subcutaneously every 30 days 03/03/2023 etanercept (Enbrel) 50 MG/ML auto-injector penIndications:Serop ositive erosive rheumatoid arthritis (HCC) Inject 50 (fifty) mg subcutaneously every 7 days 4 mL 5 07/18/2024 fenofibrate (LOFIBRA) 160 MG tablet Take 1 (one) tablet by mouth 07/23/2016 GLIPIZIDE XL 10 MG tablet Take 1 (one) tablet by mouth 2 times daily 3 06/05/2018 hydroCHLOROthiazide (HYDRODIURIL) 25 MG tablet Take 1 (one) tablet by mouth once daily 10/01/2019 HYDROcodone-acetamin ophen ([place]) 5-325 MG tablet Take 1 (one) tablet [...] 0.5 mL subcutaneously every 7 days 09/01/2022 omeprazole (PRILOSEC) 40 MG capsule Take 1 [...] tablet vitamin D, ergocalciferol, (Drisdol) 1.25 MG (49673 UT) capsule Take 1 (one) capsule by mouth every 7 days 10/06/2022 hydroxychloroquine (Plaquenil) 200 MG tabletIndications:Se ropositive rheumatoid arthritis (HCC),Therapeutic drug monitoring,High risk medication use Take 1.5 (one and one-half) tablets by mouth 2 times daily 270 tablet 3 08/02/2023 10/09/2024 documented as of this encounter Plan of Treatment Upcoming Encounters Date Type Department Care Team (Late st Contact Info) Description 01/09/2025 2:00 PM CDT Office Visit [facility] [address] [place] [address], [place] [phone] Thalia Dunlap MD [address] [place] [address] [address] [place] [phone] 01/09/2025 2:30 PM CDT Office Visit [facility] [address] [place] [address], [place] [phone] Maitas Lewis III, MD [address] [place] [address] [address] [place] [phone] 02/25/2025 2:30 PM CDT Office Visit [facility] - Rheumatology [address] [place] [address], [place] [phone] Lonnie Tai MD [address] [facility] [place], [place] [phone] documented as of this encounter Procedures Procedure Name Priority Date/Time Associated Diagnosis Comments URINALYSIS W/MICROSCOPIC REFLEX TO CULTURE Routine 08/27/2024 4:00 PM SERVICE PARTS DRIVER 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 erosive rheumatoid arthritis (HCC) 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 arthritis (HCC) Therapeutic drug monitoring High risk medication use Rheumatoid arthritis involving multiple joints (HCC) PROTEIN CREATININE RATIO URINE RANDOM PNL Routine 08/27/2024 4:00 PM SERVICE PARTS DRIVER 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 erosive rheumatoid arthritis (HCC) 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 arthritis (HCC) Therapeutic drug monitoring High risk medication use Rheumatoid arthritis involving multiple joints (HCC) QUANTIFERON-TB GOLD PLUS 4-TUBE Routine 08/27/2024 3:52 PM SERVICE PARTS DRIVER 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 erosive rheumatoid arthritis (HCC) 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 arthritis (HCC) Therapeutic drug monitoring High risk medication use Rheumatoid arthritis involving multiple joints (HCC) RHEUMATOID FACTOR BLOOD QUANTITATIVE Routine 08/27/2024 3:52 PM SERVICE PARTS DRIVER 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 arthritis (HCC) Therapeutic drug monitoring C-REACTIVE PROTEIN Routine 08/27/2024 3: 52 PM SERVICE PARTS DRIVER 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 arthritis (HCC) Therapeutic drug monitoring ALDOLASE Routine 08/27/2024 3:52 PM SERVICE PARTS DRIVER 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 arthritis (HCC) Therapeutic drug monitoring CYCLIC CITRULLINATED PEPTIDE(CCP) AB IGG Routine 08/27/2024 3:52 PM SERVICE PARTS DRIVER 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 arthritis (HCC) Therapeutic drug monitoring ERYTHROCYTE SEDIMENTATION RATE Routine 08/27/2024 3:52 PM SERVICE PARTS DRIVER 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 arthritis (HCC) Therapeutic drug monitoring CBC W AUTO DIFFERENTIAL Routine 08/27/2024 3:52 PM SERVICE PARTS DRIVER 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 arthritis (HCC) Therapeutic drug monitoring COMPREHENSIVE METABOLIC PANEL Routine 08/27/2024 3:52 PM SERVICE PARTS DRIVER 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 arthritis (HCC) Therapeutic drug monitoring HEPATITIS B SURFACE ANTIBODY Routine 08/27/2024 3:52 PM SERVICE PARTS DRIVER 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 erosive rheumatoid arthritis (HCC) 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 arthritis (HCC) Therapeutic drug monitoring High risk medication use Rheumatoid arthritis involving multiple joints (HCC) HEPATITIS B CORE ANTIBODY TOTAL Routine 08/27/2024 3:52 PM SERVICE PARTS DRIVER 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 erosive rheumatoid arthritis (HCC) 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 arthritis (HCC) Therapeutic drug monitoring High risk medication use Rheumatoid arthritis involving multiple joints (HCC) HEPATITIS B SURFACE ANTIGEN W RFLX CONFIRMATION Routine 08/27/2024 3:52 PM SERVICE PARTS DRIVER 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 erosive rheumatoid arthritis (HCC) 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 arthritis (HCC) Therapeutic drug monitoring High risk medication use Rheumatoid arthritis involving multiple joints (HCC) CK BLOOD Routine 08/27/2024 3:52 PM SERVICE PARTS DRIVER 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 arthritis (HCC) Therapeutic drug monitoring documented in this encounter Results * PROTEIN CREATININE RATIO URINE RANDOM PNL (08/27/2024 4:00 PM SERVICE PARTS DRIVER) Protein Urine <7 Not Established mg/dL 08/27/2024 5:18 PM SERVICE PARTS DRIVER [facility] Creatinine Urine 26.51 Not Established mg/dL 08/27/2024 5:18 PM [facility] Protein/Creatinin e Ratio Urine 08/27/2024 5:18 PM [facility] Comment:Unable to calculate ratio because the analyte concentration is outside the instrument measuring range. Urine URINE SPECIMEN OBTAINED BY CLEAN CATCH PROCEDURE / Unknown Collection / Unknown 08/27/2024 4:00 PM SERVICE PARTS DRIVER 08/27/2024 4:29 PM SERVICE PARTS DRIVER Lonnie Tai MD LAB - URINE CHEM ISTRY ORDERABLES [facility] [address] [place] [address], [facility] [phone] * (ABNORMAL) URINALYSIS W/MICROSCOPIC REFLEX TO CULTURE (08/27/2024 4:00 PM SERVICE PARTS DRIVER) Color UA Straw Straw, Yellow 08/27/2024 4:45 PM [facility] Clarity UA Clear Clear 08/27/2024 4:45 PM [facility] Specific [place] UA 1.002(L) 1.005 - 1.030 08/27/2024 4:45 PM [facility] pH UA 6.0 5.0 - 8.0 pH 08/27/2024 4:45 PM [facility] Protein UA Negative Negative 08/27/2024 4:45 PM [facility] Glucose UA 3+(A) Negative 08/27/2024 4:45 PM [facility] Ketone UA Negative Negative 08/27/2024 4:45 PM [facility] Bilirubin UA Negative Negative 08/27/2024 4:45 PM [facility] Blood UA Negative Negative 08/27/2024 4:45 PM [facility] Nitrite UA Negative Negative 08/27/2024 4:45 PM [facility] Leukocyte Esterase Negative Negative 08/27/2024 4:45 PM [facility] Urobilinogen UA Negative Negative mg/dL 08/27/2024 4:45 PM [facility] RBC UA None Seen None Seen, 0-2, 3-5 /HPF 08/27/2024 4:45 PM [facility] WBC UA 0-5 None Seen, 0-5 /HPF 08/27/2024 4:45 PM SERVICE PARTS DRIVER [facility] Bacteria UA Trace(A) None /HPF 08/27/2024 4:45 PM SERVICE PARTS DRIVER [facility] Squamous Epithelial Cells UA 0-2 None Seen, 0-2, 3-5 /HPF 08/27/2024 4:45 PM SERVICE PARTS DRIVER [facility] Urine URINE SPECIMEN OBTAINED BY CLEAN CATCH PROCEDURE / Unknown Collection / Unknown 08/27/2024 4:00 PM SERVICE PARTS DRIVER 08/27/2024 4:29 PM SERVICE PARTS DRIVER Narrative [facility] - 08/27/2024 4:45 PM SERVICE PARTS DRIVER Culture Not Indicated Lonnie Tai MD LAB - URINALYSIS ORDERABLES [address] [address], [facility] [phone] * HEPATITIS B SURFACE ANTIGEN W RFLX CONFIRMATION (08/27/2024 3:52 PM SERVICE PARTS DRIVER) Hepatitis B Virus Surface Antigen Non-reacti ve Non-reacti ve 08/27/2024 5:26 PM SERVICE PARTS DRIVER [facility] Blood BLOOD SPECIMEN / Unknown Lab Venipuncture / Unknown 08/27/2024 3:52 PM SERVICE PARTS DRIVER 08/27/2024 4:29 PM SERVICE PARTS DRIVER Lonnie Tai MD LAB - CHEMISTRY ORDERABLES Performing Organization Address City/[facility]/ZIP Co de Phone Number [address] [address], [place] [phone] * HEPATITIS B SURFACE ANTIBODY (08/27/2024 3:52 PM SERVICE PARTS DRIVER) Hepatitis B Virus Surface Antibody Non-react comfort Non-react comfort 08/27/2024 5:26 PM [facility] Comment: < 8 mIU/mL Hepatitis B surface Antibody (HBsAb). Nonreactive for HBsAb - individual is considered not immune to Hepatitis B Virus infection. Hepatitis B Surface Antibody Quantitative 0.0 <8.0 mIU/mL 08/27/2024 5:26 PM SERVICE PARTS DRIVER [facility] Comment: Hepatitis B Surface Antibody Numeric Result Interpretation: ? Nonreactive: ?<8.0 mIU/mL ? Indeterminate: ??8.0 - 12.0 mIU/mL ? Reactive: ?>12.0 mIU/mL ? Blood BLOOD SPECIMEN / Unknown Lab Venipuncture / Unknown 08/27/2024 3:52 PM SERVICE PARTS DRIVER 08/27/2024 4:29 PM SERVICE PARTS DRIVER Lonnie Tai MD LAB - CHEMISTRY ORDERABLES Performing Organization Address [facility]/ZIP Co de Phone Number [facility] [address] [place] [address], [place] [phone] * HEPATITIS B CORE ANTIBODY TOTAL (08/27/2024 3:52 PM SERVICE PARTS DRIVER) [facility] HBc Antibody Total Non-reacti ve Non-reacti ve 08/27/2024 5:26 PM SERVICE PARTS DRIVER [facility] Blood BLOOD SPECIMEN / Unknown Lab Venipuncture / Unknown 08/27/2024 3:52 PM SERVICE PARTS DRIVER 08/27/2024 4:29 PM SERVICE PARTS DRIVER Lonnie Tai MD LAB - CHEMISTRY ORDERABLES Performing Organization Address [facility] Co de Phone Number [facility] [address] [place] [address], [place] [phone] * QUANTIFERON-TB GOLD PLUS 4-TUBE (08/27/2024 3:52 PM SERVICE PARTS DRIVER) Pathologist [facility] QuantiFERON Mitogen Minus NIL 9.96 IU/mL 08/29/2024 8:21 PM SERVICE PARTS DRIVER [place] [facility]) QuantiFERON Nil Value 0.04 IU/mL 08/29/2024 8:21 PM SERVICE PARTS DRIVER [facility]) QuantiFERON Plus TB1 Minus NIL 0.01 <=0.34 IU/mL 08/29/2024 8:21 PM SERVICE PARTS DRIVER [place] ([facility]) QuantiFERON Plus TB2 Minus NIL 0.00 <=0.34 IU/mL 08/29/2024 8:21 PM SERVICE PARTS DRIVER [facility] ([facility]) QuantiFERON-TB Gold Plus Negative Negative 08/29/2024 8:21 PM SERVICE PARTS DRIVER [facility]) Comment: INTERPRETIVE INFORMATION:Quantiferon TB Gold Plus Interferon [...] Mycobacterium tuberculosis Infection -- [place], 2010 (http://www.cdc.gov/mmwr/preview/mmwrhtml/se8507j0.htm), for more information concerning test performance in low-prevalence populations and use in occupational screening. Performed By: [facility] [address] [place] [address] Commutator Repairer: Kleber Choudhary MD, PhD CLIA Number: [id number] Blood BLOOD SPECIMEN / Unknown Lab Venipuncture / Unknown 08/27/2024 3:52 PM SERVICE PARTS DRIVER 08/27/2024 4:38 PM SERVICE PARTS DRIVER Lonnie Tai MD LAB - CHEMISTRY ORDERABLES [facility]) [address] [place] [address], [facility] * CK BLOOD (08/27/2024 3:52 PM SERVICE PARTS DRIVER) [facility] CK Total 78 30 - 200 U/L 08/27/2024 5:20 PM SERVICE PARTS DRIVER [facility] Blood BLOOD SPECIMEN / Unknown Lab Venipuncture / Unknown 08/27/2024 3:52 PM SERVICE PARTS DRIVER 08/27/2024 4:45 PM SERVICE PARTS DRIVER Lonnie Tai MD LAB - CHEMISTRY ORDERABLES Performing Organization Address City/[facility] Co de Phone Number [facility] [address] [place] [address], [facility] [phone] * ALDOLASE (08/27/2024 3:52 PM SERVICE PARTS DRIVER) [facility] Aldolase 3.0 1.2 - 7.6 U/L 08/29/2024 8:19 AM SERVICE PARTS DRIVER [facility] ([facility]) Comment: REFERENCE INTERVAL: Aldolase Access complete set of age- and/or gender-specific reference intervals for this test in the [facility] Test Directory ([employer]). Performed By: [facility] [address] [place] [address] Commutator Repairer: Kleber Choudhary MD, PhD CLIA Number: [id number] Blood BLOOD SPECIMEN / Unknown Lab Venipuncture / Unknown 08/27/2024 3:52 PM SERVICE PARTS DRIVER 08/27/2024 4:29 PM SERVICE PARTS DRIVER Lonnie Tai MD LAB - CHEMISTRY ORDERABLES Performing Organization Address City/[facility] de Phone Number [facility]) [address] [place] [address] * RHEUMATOID FACTOR BLOOD QUANTITATIVE (08/27/2024 3:52 PM SERVICE PARTS DRIVER) [facility] Rheumatoid Factor <15 <30 IU/mL 08/27/2024 5:01 PM SERVICE PARTS DRIVER [facility] Rheumatoid Factor Screen Negative Negative 08/27/2024 5:01 PM SERVICE PARTS DRIVER [facility] Blood BLOOD SPECIMEN / Unknown Lab Venipuncture / Unknown 08/27/2024 3:52 PM SERVICE PARTS DRIVER 08/27/2024 4:29 PM SERVICE PARTS DRIVER Lonnie Tai MD LAB - CHEMISTRY ORDERABLES Performing Organization Address [facility]/ZIP Co de Phone Number [address] [address], [facility] [phone] * (ABNORMAL) CYCLIC CITRULLINATED PEPTIDE(CCP) AB IGG (08/27/2024 3:52 PM SERVICE PARTS DRIVER) CCP Antibody IgG 15.4(H) <5.0 U/mL 08/27/2024 5:26 PM SERVICE PARTS DRIVER [facility] Blood BLOOD SPECIMEN / Unknown Lab Venipuncture / Unknown 08/27/2024 3:52 PM SERVICE PARTS DRIVER 08/27/2024 4:29 PM SERVICE PARTS DRIVER Lonnie Tai MD LAB - CHEMISTRY ORDERABLES Performing Organization Address [facility] Co de Phone Number [address] [address], [facility] [phone] * ERYTHROCYTE SEDIMENTATION RATE (08/27/2024 3:52 PM SERVICE PARTS DRIVER) Erythrocyte Sedimentation Rate Westergren <1 0 - 30 MM/HR 08/27/2024 6:25 PM SERVICE PARTS DRIVER [facility] Blood BLOOD SPECIMEN / Unknown Lab Venipuncture / Unknown 08/27/2024 3:52 PM SERVICE PARTS DRIVER 08/27/2024 4:42 PM SERVICE PARTS DRIVER Lonnie Tai MD LAB - HEMATOLOGY ORDERABLES Performing Organization Address City/[facility]/ZIP Co de Phone Number [address] [address], [facility] [phone] * C-REACTIVE PROTEIN (08/27/2024 3:52 PM SERVICE PARTS DRIVER) C-Reactive Protein <0.5 <=0.5 mg/dL 08/27/2024 5:21 PM SERVICE PARTS DRIVER [facility] Blood BLOOD SPECIMEN / Unknown Lab Venipuncture / Unknown 08/27/2024 3:52 PM SERVICE PARTS DRIVER 08/27/2024 4:45 PM SERVICE PARTS DRIVER Lonnie Tai MD LAB - CHEMISTRY ORDERABLES [facility] [address] [place] [address], [facility] [phone] * (ABNORMAL) COMPREHENSIVE METABOLIC PANEL (08/27/2024 3:52 PM SERVICE PARTS DRIVER) BUN 8 7 - 26 mg/dL 08/27/2024 5:20 PM [facility] Creatinine 1.40(H) 0.56 - 0.96 mg/dL 08/27/2024 5:20 PM [facility] Sodium 129(L) 136 - 145 mmol/L 08/27/2024 5:20 PM [facility] Potassium 4.0 3.5 - 4.5 mmol/L 08/27/2024 5:20 PM [facility] Chloride 98 98 - 107 mmol/L 08/27/2024 5:20 PM [facility] CO2 18(L) 22 - 29 mmol/L 08/27/2024 5:20 PM [facility] Glucose 286(H) 70 - 99 mg/dL 08/27/2024 5:20 PM [facility] Calcium 9.0 8.4 - 10.2 mg/dL 08/27/2024 5:20 PM [facility] Protein Total 6.7 6.0 - 8.3 g/dL 08/27/2024 5:20 PM [facility] Albumin 4.3 3.4 - 5.0 g/dL 08/27/2024 5:20 PM [facility] Bilirubin Total 0.3 0.2 - 1.2 mg/dL 08/27/2024 5:20 PM [facility] Alkaline Phosphatase 115 40 - 150 U/L 08/27/2024 5:20 PM [facility] ALT 13 5 - 55 U/L 08/27/2024 5:20 PM [facility] AST 14 5 - 34 U/L 08/27/2024 5:20 PM [facility] Anion Gap 13 6 - 16 08/27/2024 5:20 PM [facility] BUN/Creatinine Ratio 6(L) 7 - 23 08/27/2024 5:20 PM [facility] Osmolality Calculated 277 275 - 295 mOsm/kg 08/27/2024 5:20 PM [facility] Albumin/Globulin Ratio 1.8 1.1 - 2.3 08/27/2024 5:20 PM [facility] eGFR by CKD-EPI 40(L) >=90 mL/min/1.7 3 m2 08/27/2024 5:20 PM [facility] Blood BLOOD SPECIMEN / Unknown Lab Venipuncture / Unknown 08/27/2024 3:52 PM SERVICE PARTS DRIVER 08/27/2024 4:45 PM SERVICE PARTS DRIVER Lonnie Tai MD LAB - CHEMISTRY ORDERABLES [facility] [address] [place] [address], [facility] [phone] * (ABNORMAL) CBC WITH DIFFERENTIAL (08/27/2024 3:52 PM SERVICE PARTS DRIVER) WBC 11.8(H) 4.0 - 10.7 x10E9/L 08/27/2024 5:13 PM [facility] RBC Count 4.04 3.90 - 5.20 x10E12/L 08/27/2024 5:13 PM [facility] Hemoglobin 8.4(L) 11.9 - 15.8 g/dL 08/27/2024 5:13 PM [facility] Hematocrit 26.5(L) 34.8 - 46.1 % 08/27/2024 5:13 PM [facility] MCV 65.6(L) 80.0 - 98.0 fL 08/27/2024 5:13 PM [facility] MCH 20.8(L) 26.7 - 33.6 pg 08/27/2024 5:13 PM [facility] MCHC 31.7 31.7 - 36.3 g/dL 08/27/2024 5:13 PM [facility] RDW-CV 18.0(H) 11.3 - 14.8 % 08/27/2024 5:13 PM [facility] Platelet Count 351 150 - 420 x10E9/L 08/27/2024 5:13 PM [facility] MPV 11.3 7.8 - 11.4 fL 08/27/2024 5:13 PM [facility] Neutrophil % 71.1 41.0 - 74.0 % 08/27/2024 5:13 PM [facility] Lymphocyte % 19.0 17.0 - 47.0 % 08/27/2024 5:13 PM [facility] Monocyte % 6.8 3.0 - 11.0 % 08/27/2024 5:13 PM [facility] Eosinophil % 1.1 0.0 - 7.0 % 08/27/2024 5:13 PM [facility] Basophil % 1.3 0.0 - 1.6 % 08/27/2024 5:13 PM [facility] Immature Granulocytes % 0.7 0.0 - 1.0 % 08/27/2024 5:13 PM [facility] Neutrophil Absolute 8.41(H) 1.60 - 7.50 x10E9/L 08/27/2024 5:13 PM [facility] Lymphocyte Absolute 2.25 1.00 - 4.40 x10E9/L 08/27/2024 5:13 PM [facility] Monocyte Absolute 0.81 0.15 - 1.00 x10E9/L 08/27/2024 5:13 PM [facility] Eosinophil Absolute 0.13 0.00 - 0.60 x10E9/L 08/27/2024 5:13 PM [facility] Basophil Absolute 0.15(H) 0.00 - 0.13 x10E9/L 08/27/2024 5:13 PM [facility] Blood BLOOD SPECIMEN / Unknown Lab Venipuncture / Unknown 08/27/2024 3:52 PM SERVICE PARTS DRIVER 08/27/2024 4:42 PM SERVICE PARTS DRIVER Lonnie Tai MD LAB - HEMATOLOGY ORDERABLES [facility] [address] [place] [address], [facility] [phone] documented in this encounter Visit Diagnoses Diagnosis 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 arthritis (HCC) Rheumatoid arthritis Therapeutic drug monitoring Encounter for therapeutic drug monitoring 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 erosive rheumatoid arthritis (HCC) High risk medication use Encounter for long-term (current) use of other medications Rheumatoid arthritis involving multiple joints (HCC) documented in this encounter Care Teams Dragline Operator Helper Relationship Specialty Start Date End Date Eliana Mcneal [address] [place] [address] PCP - General 07/10/24 documented as of this encounter
--- OUTSIDE RECORDS SUMMARY | 2024-11-09 23:14 | XMS_ITS | Encounter Summary ---
Author Organization [facility] Address [address] [place] [address] Care Team Providers Care Database Developer Name Role Phone Eliana Mcneal Primary Care Provider [phone] Encounter Details Date Type Department Care Team (Latest Contact Info) Description 08/27/2024 3:34 PM BLOCK BOLTER MULE OPERATOR - 08/27/2024 11:59 PM BLOCK BOLTER MULE OPERATOR Hospital Encounter [facility] RAD OP [address] [place] [phone] Lonnie Tai MD [address] [facility] [place] [address] Discharge Disposition: Home or Self Care Social [...] by mouth once daily 10/01/2019 HYDROcodone-acetamin ophen (Rapelje) 5-325 MG tablet Take 1 (one) tablet [...] tablet vitamin D, ergocalciferol, (Drisdol) 1.25 MG (75592 UT) capsule Take 1 (one) capsule by [...] Office Visit [facility] [address] [place] [address], [place] [phone] Thalia Dunlap MD [address] [place] [address] [address] [place] [phone] 01/09/2025 2:30 PM CDT Office Visit [facility] [address] [place] [address], [place] [phone] Matias Lewis III, MD [address] [place] [address] [address] [place] [phone] 02/25/2025 2:30 PM CDT Office Visit [facility] - Rheumatology [address] [place] [address], [place] [phone] Lonnie Tai MD [address] [facility] [place], [place] [id number] documented as of this encounter Procedures Procedure Name Priority Date/Time Associated Diagnosis Comments XR CHEST 2VW Routine 08/27/2024 3:35 PM BLOCK BOLTER MULE OPERATOR 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 erosive rheumatoid arthritis (HCC) 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 arthritis (HCC) Therapeutic drug monitoring High risk medication use Rheumatoid arthritis involving multiple joints (HCC) documented in this encounter Results * XR Chest 2Vw (08/27/2024 3:35 PM BLOCK BOLTER MULE OPERATOR) Anatomical Region Laterality Modality Chest Digital Radiogra phy 08/27/2024 3:38 PM BLOCK BOLTER MULE OPERATOR Impressions 08/27/2024 3:39 PM BLOCK BOLTER MULE OPERATOR IMPRESSION: No acute cardiopulmonary abnormalities. > Interpreting Provider: Mattie Nobles MD on 08/27/2024 3:39 PM Narrative 08/27/2024 3:39 PM BLOCK BOLTER MULE OPERATOR PROCEDURE: ??XR CHEST 2VW DATE/TIME OF [...] Diagnoses Diagnosis 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 erosive rheumatoid arthritis (HCC) 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 arthritis (HCC) Rheumatoid arthritis Therapeutic drug monitoring Encounter for therapeutic drug monitoring High risk medication use Encounter for long-term (current) use of other medications Rheumatoid arthritis involving multiple joints (HCC) documented in this encounter Care Teams Database Developer Relationship Specialty Start Date End Date Eliana Mcneal [address] [place] [address] PCP - General 07/10/24 documented as of this encounter
--- OUTSIDE RECORDS SUMMARY | 2024-11-09 23:14 | XMS_ITS | Encounter Summary ---
Author Organization [facility] Address [address] [facility] [place] [address] Care Team Providers Care Holistic Nutritionist Name Role Phone Tanya Jane MD Primary Care Provider [phone] Reason for Visit * Reason Onset Date Comments General 01/18/2024 Encounter Details Date Type Department Care Team (Late Contact Info) Description 01/18/2024 Telephone [facility] [address] [place] [phone] Breanna Escalera RN General Social History Tobacco Use Types Packs/Day Years [...] encounter Miscellaneous Notes * Telephone Encounter - Breanna Escalera RN - 01/18/2024 8:58 AM CDT Abdominal US order faxed to [facility] as requested by pt documented in this encounter Plan of Treatment Upcoming Encounters Date Type Department Care Team (Late Contact Info) Description 01/09/2025 2:00 PM CDT Office Visit [facility] [address] [facility], [place] [phone] Thalia Dunlap MD [address] [facility] [address] [place] [address] 01/09/2025 2:30 PM CDT Office Visit [facility] [address] [facility], [place] [address] Matias Lewis III, MD [address] [facility] 2L [place] [phone] 02/25/2025 2:30 PM CDT Office Visit [facility] - Rheumatology [address] [place] [address], [place] [address] Lonnie Tai MD [address] [facility] [place] [address] documented as of this encounter Visit Diagnoses Not on filedocumented in this encounter Care Teams Holistic Nutritionist Relationship Specialty Start Date End Date Tanya Jane MD [address] [place] [address] [place] [phone] PCP - General 01/05/18 07/09/24 documented as of this encounter
--- OUTSIDE RECORDS SUMMARY | 2024-11-09 23:14 | XMS_ITS | Encounter Summary ---
Author Organization [facility] Address [address] [facility] [place] [address] Care Team Providers Care Lead Section Supervisor Name Role Phone Tanya Jane MD Primary Care Provider [phone] Reason for Referral * Radiology Services (Routine) - Pending Review Specialty Diagnoses / Procedures Referred By Khoa soria Referred To Contact Diagnoses Nonalcoholic fatty liver disease Procedures PROC FIBROSCAN Thalia Dunlap MD [facility] [facility] [address] [place] [address] Referral ID Status Reason Start Date Expiration Date V isits Requested Visits Authorized [id number] Pending Review 01/17/2024 01/16/2025 1 1 Encounter Details Date Type Department Care Team (Late st Contact Info) Description 01/17/2024 Orders Only [facility] - [address] [facility], [place] [phone] Thalia Dunlap MD [address] [place] [address] [address] [place] [address] Nonalcoholic fatty liver disease Social History Tobacco Use Types Packs/Day Years [...] Visit [facility] [address] [place] [address], [place] [address] [place] [address] [place] [address] [address] [place] [phone] 01/09/2025 2:30 PM CDT Office [place] [facility] [place] [address] [place] [address], [place] [address] Matias Lewis III, MD [address] [place] [address] 2[place] [address] 02/25/2025 2:30 PM CDT [facility] Rhe[facility] [address] [place] [address], [place] [phone] Lonnie Tai MD [address] [facility]?? [place], [place] [phone] documented as of this encounter Procedures Procedure Name Priority Date/Time Associated Diagnosis Comments CT LIVER ELASTOGRAPHY Routine 01/17/2024 1:16 PM CDT Nonalcoholic fatty liver disease documented in this encounter Results * PROC FIBROSCAN (01/17/2024 1:16 PM CDT) Narrative Rubi Phan RN - 01/17/2024 1:16 PM CDT Rubi Phan RN ? 01/17/2024 ??1:53 PM Diagnosis: Nonalcoholic [...] Thalia Dunlap MD PROCEDURE/MINOR SURG ICAL ORDERABLES documented in this encounter Visit Diagnoses Diagnosis Nonalcoholic fatty liver disease- Primary Other chronic nonalcoholic liver disease documented in this encounter Care Teams Lead Section Supervisor Relationship Specialty Start Date End Date Tanya Jane MD [address] [place] [address] [place] [id number] PCP - General 01/05/18 07/09/24 documented as of this encounter
--- OUTSIDE RECORDS SUMMARY | 2024-11-09 23:14 | XMS_ITS | Encounter Summary ---
Author Organization [facility] Address [address] [facility] [place] [address] Care Team Providers Care Wellness Assistant Name Role Phone Tanya Jane MD Primary Care Provider [phone] Encounter Details Date Type Department Care Team (Late Contact Info) Description 02/07/2024 Orders Only [facility] - Rheumatology [address] [place] [address], [place] [phone] Lonnie Tai MD [address] [facility] [place] [address] Social History Tobacco Use Types Packs/Day Years [...] Visit [facility] [address] [facility], [place] [phone] Thalia Dunlap MD [address] [facility] [address] [place] [phone] 01/09/2025 2:30 PM CDT Office Visit [facility] [address] [place] [address], [place] [phone] Matias Lewis III, MD [address] [facility] 2L [place] [phone] 02/25/2025 2:30 PM CDT Office Visit [facility] - Rheumatology [address] [facility], [place] [phone] Lonnie Tai MD [address] [facility] [place] [address] documented as of this encounter Procedures Procedure Name Priority Date/Time Associated Diagnosis Comments RHEUMATOID FACTOR BLOOD QUANTITATIVE 02/07/2024 7:45 AM CDT C-REACTIVE PROTEIN 02/07/2024 7: 45 AM CDT ALDOLASE 02/07/2024 7:45 AM CDT CYCLIC CITRULLINATED PEPTIDE(CCP) AB IGG 02/07/2024 7:45 AM CDT ERYTHROCYTE SEDIMENTATION RATE 02/07/2024 7:45 AM CDT CBC W AUTO DIFFERENTIAL 02/07/2024 7:45 AM CDT COMPREHENSIVE METABOLIC PANEL 02/07/2024 7:45 AM CDT CK BLOOD 02/07/2024 7:45 AM CDT documented in this encounter Results * (ABNORMAL) CYCLIC CITRULLINATED PEPTIDE(CCP) AB IGG (02/07/2024 7:45 AM CDT) CCP Antibodies IgG/IgA >250(H) <20 Units [facility] INSURANCE BILL Comment: ? Negative: <20 ? Weak Positive: 20-39 ? Moderate Positive: 40-59 ??Strong Positive: >59 FASTING 02/07/2024 7:45 AM CDT 02/07/2024 Narrative Resulting Agency Comment Lab Testing performed at: [facility] [address] [place] [address] ??[facility] [phone] Lonnie Tai MD LAB - CHEMISTRY ORDERABLES Performing Organization Address City/[facility]/ZIP Co de Phone Number [facility] INSURANCE BILL [address] [place] [address] * (ABNORMAL) ALDOLASE (02/07/2024 7:45 AM CDT) Aldolase 1.9(L) 3.3 - 10.3 U/L [facility] INSURANCE BILL Comment:FASTING 02/07/2024 7:45 AM CDT 02/07/2024 Narrative Resulting Agency Comment Lab Testing performed at: [facility] [address] [place] [address] ??[facility] [phone] Lonnie Tai MD LAB - CHEMISTRY ORDERABLES Performing Organization Address [facility] Phone Number [facility] INSURANCE BILL [address] [place] [address] * CK BLOOD (02/07/2024 7:45 AM CDT) CK 37 32 - 182 U/L [facility] INSURANCE BILL Comment:FASTING 02/07/2024 7:45 AM CDT 02/07/2024 Narrative Resulting Agency Comment Lab Testing performed at: [facility] [address] ??[facility] [id number] Lonnie Tai MD LAB - CHEMISTRY ORDERABLES Performing Organization Address [facility] Phone Number [facility] INSURANCE BILL [address] [place] [address] * C-REACTIVE PROTEIN (02/07/2024 7:45 AM CDT) C-Reactive Protein <1 0 - 10 mg/L [facility] INSURANCE BILL Comment:FASTING 02/07/2024 7:45 AM CDT 02/07/2024 Narrative Resulting Agency Comment Lab Testing performed at: [facility] [address] ??[facility] [phone] Lonnie Tai MD LAB - CHEMISTRY ORDERABLES Performing Organization Address City/[facility]/ZIP Co de Phone Number [facility] INSURANCE BILL [address] [place] [address] * ERYTHROCYTE SEDIMENTATION RATE (02/07/2024 7:45 AM CDT) Erythrocyte Sedimentation Rate Westergren 2 0 - 40 mm/hr [facility] INSURANCE BILL Comment:FASTING 02/07/2024 7:45 AM CDT 02/07/2024 Narrative Resulting Agency Comment Lab Testing performed at: [facility] [address] ??[facility] [phone] Lonnie Tai MD LAB - HEMATOLOGY ORDERABLES Performing Organization Address [facility] de Phone Number [facility] INSURANCE BILL [address] [place] [address] * (ABNORMAL) RHEUMATOID FACTOR BLOOD QUANTITATIVE (02/07/2024 7:45 AM CDT) Rheumatoid Factor 17.6(H) <14.0 IU/mL [facility] INSURANCE BILL Comment:FASTING 02/07/2024 7:45 AM CDT 02/07/2024 Narrative Resulting Agency Comment Lab Testing performed at: [facility] [address] ??[facility] [phone] Lonnie Tai MD LAB - CHEMISTRY ORDERABLES Performing Organization Address City/[facility] Co de Phone Number [facility] INSURANCE BILL [address] [place] [address] * (ABNORMAL) COMPREHENSIVE METABOLIC PANEL (02/07/2024 7:45 AM CDT) Glucose 87 70 - 99 mg/dL [facility] INSURANCE BILL BUN 9 8 - 27 mg/dL [facility] INSURANCE BILL Creatinine 1.66(H) 0.57 - 1.00 mg/dL [facility] INSURANCE BILL eGFR by CKD-EPI 33(L) >59 mL/min/1.7 3 [facility] INSURANCE BILL BUN/Creatinine Ratio 5(L) 12 - 28 [facility] INSURANCE BILL Sodium 136 134 - 144 mmol/L [facility] INSURANCE BILL Potassium 4.5 3.5 - 5.2 mmol/L [facility] INSURANCE BILL Chloride 98 96 - 106 mmol/L [facility] INSURANCE BILL CO2 21 20 - 29 mmol/L [facility] INSURANCE BILL Calcium 9.8 8.7 - 10.3 mg/dL [facility] INSURANCE BILL Protein Total 6.0 6.0 - 8.5 g/dL [facility] INSURANCE BILL Albumin 4.6 3.8 - 4.8 g/dL [facility] INSURANCE BILL Globulin Total 1.4(L) 1.5 - 4.5 g/dL [facility] INSURANCE BILL Albumin/Globulin Ratio 3.3(H) 1.2 - 2.2 [facility] INSURANCE BILL Bilirubin Total 0.3 0.0 - 1.2 mg/dL [facility] INSURANCE BILL Alkaline Phosphatase 80 44 - 121 IU/L [facility] INSURANCE BILL AST 17 0 - 40 IU/L [facility] INSURANCE BILL ALT 17 0 - 32 IU/L [facility] INSURANCE BILL Comment:FASTING 02/07/2024 7:45 AM CDT 02/07/2024 Narrative Resulting Agency Comment [facility]: [facility] [address] [facility] ??[facility] [phone] Lonnie Tai MD LAB - CHEMISTRY ORDERABLES [facility] INSURANCE BILL [address] [place] [address] * (ABNORMAL) CBC WITH DIFFERENTIAL (02/07/2024 7:45 AM CDT) WBC 7.0 3.4 - 10.8 x10E3/uL [facility] INSURANCE BILL RBC 4.05 3.77 - 5.28 x10E6/uL [facility] INSURANCE BILL Hemoglobin 10.3(L) 11.1 - 15.9 g/dL [facility] INSURANCE BILL Hematocrit 32.7(L) 34.0 - 46.6 % [facility] INSURANCE BILL MCV 81 79 - 97 fL [facility] INSURANCE BILL MCH 25.4(L) 26.6 - 33.0 pg [facility] INSURANCE BILL MCHC 31.5 31.5 - 35.7 g/dL [facility] INSURANCE BILL RDW 14.1 11.7 - 15.4 % [facility] INSURANCE BILL Platelet Count 297 150 - 450 x10E3/uL [facility] INSURANCE BILL Granulocytes % 60 Not Estab. % [facility] INSURANCE BILL Lymphocytes % 26 Not Estab. % [facility] INSURANCE BILL Monocytes % 7 Not Estab. % [facility] INSURANCE BILL Eosinophils % 4 Not Estab. % [facility] INSURANCE BILL Basophils % 2 Not Estab. % [facility] INSURANCE BILL Immature Cells NOT AVAILABLE [facility] INSURANCE BILL Comment:Result cannot be obt ained for this observation. Granulocytes Absolute 4.3 1.4 - 7.0 x10E3/uL [facility] INSURANCE BILL Lymphocytes Absolute 1.8 0.7 - 3.1 x10E3/uL [facility] INSURANCE BILL Monocytes Absolute 0.5 0.1 - 0.9 x10E3/uL [facility] INSURANCE BILL Eosinophils Absolute 0.3 0.0 - 0.4 x10E3/uL [facility] INSURANCE BILL Basophils Absolute 0.1 0.0 - 0.2 x10E3/uL [facility] INSURANCE BILL Immature Granulocytes 1 Not Estab. % [facility] INSURANCE BILL Immature Granulocytes Absolute 0.0 0.0 - 0.1 x10E3/uL [facility] INSURANCE BILL nRBC NOT AVAILABLE [facility] INSURANCE BILL Comment:Result cannot be obt ained for this observation. Comment Hematology NOT AVAILABLE [facility] INSURANCE BILL Comment: FASTING Result cannot be obtained for this observation. 02/07/2024 7:45 AM CDT 02/07/2024 Narrative Resulting Agency Comment Lab Testing performed at: [facility] ??[facility] [id number] Lonnie Tai MD LAB - HEMATOLOGY ORDERABLES [facility] INSURANCE BILL [address] [place] [address] documented in this encounter Visit Diagnoses Not on filedocumented in this encounter Care Teams Wellness Assistant Relationship Specialty Start Date End Date Tanya Jane MD [address] [place] [phone] PCP - General 01/05/18 07/09/24 documented as of this encounter
--- OUTSIDE RECORDS SUMMARY | 2024-11-09 23:14 | XMS_ITS | Encounter Summary ---
Author Organization [facility] Health Address [address] [facility] [place] [address] Care Team Providers Care First Aid Attendant Name Role Phone Tanya Jane MD Primary Care Provider [phone] Reason for Visit * Reason Comments Arthritis 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 RA Encounter Details Date Type Department Care Team (Late st Contact Info) Description 08/01/2023 12:30 PM CDT Office Visit [facility] - Rheumatology [address] [facility], [place] [address] Lonnie Tai MD [address] [facility] [place] [address] 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 arthritis (HCC) (Primary Dx); Therapeutic drug monitoring; High risk medication use Social History Tobacco Use Types Packs/Day Years [...] Sign Reading Time Taken Comments Blood Pressure 138/82 08/01/2023 12:35 PM CDT Pulse 76 08/01/2023 12:35 PM CDT Temperature 35.8 ??C (96.5 ??F) 08/01/2023 12:35 PM C DT Respiratory Rate - - Oxygen Saturation - - Inhaled Oxygen Concentration - - Weight 72.1 kg (159 lb) 08/01/2023 12:35 PM CDT Height 167.6 cm (5' 6 ) 08/01/2023 12:35 PM CDT Body Mass Index 25.66 08/01/2023 12:35 PM CDT documented in this encounter Patient Instructions * Patient Instructions* Lonnie Tai MD - 08/01/2023 12:57 PM CDT [facility] New medications: HCQ 300 mg daily and diclofenac 75 mg twice a day. Stop the meloxicam. Please makean eye appointment for an OCT before you start your hydroxychloroquine. We recommend a squeeze ball for your hand. Return to clinic: in 3-[address] Davidson and Dr. Tai To cancel, schedule, or reschedule an appointment, call [phone] or [phone], option 1. If you choose to get labs or imaging at an outside facility, it is your (as the patient) responsibility to have these results sent to us. Our fax number is [phone]. If you need a refill on your medication, please call your pharmacy first to have them send us a refill request. If you have an emergency after hours, you can reach the motor room controller fellow by calling the hydrogen operator [phone], but please also seek out appropriate care at Urgent Care or Emergency Room. documented in this encounter Progress Notes * Lonnie Tai MD - 08/02/2023 4:02 PM CDT [facility] Visit Referring Physician:@ Tanya Jane MD PCP:@ Tanya Jane MD CC: Fu for seropositive RA HPI: Patient was previously seen on 05/16/2023 for seropositive rheumatoid arthritis on Enbrel monotherapy. She states that her pain is about the same and she has not noticed any improvement with theincreased dose of meloxicam 15 mg daily. She notes increased pain around her rheumatoid nodules in her left elbow.She also notes joint tenderness in her right hands along the DIP and PIP areas. She notes that she was having trouble getting her Enbrel and had to take it a few days late. ROS: Other systems reviewed and negative or [...] once daily, Disp: , Rfl: ??? HYDROcodone-acetaminophen ([place]) 5-325 MG tablet, Take 1 (one) tablet [...] nitroGLYCERIN (NITROSTAT) 0.4 MG tablet, Dissolve 1 (one) tablet under the tongue as directed, Disp: , Rfl: ??? nystatin (Mycostatin) 195896 UNIT/GM cream, APPLY TOPICALLY TO THE AFFECTED [...] tablet by mouth, Disp: , Rfl: ??? triamcinolone acetonide (Kenalog) 0.1 % ointment, APPLY A THIN LAYER TO THE AFFECTED AREA(S) BYTOPICAL ROUTE 2 TIMES PER DAY prn rash, Disp: , Rfl: ??? valACYclovir (Valtrex) 1 GM tablet, Take 1 tablet every 12 hours by oral route for 7 days., Disp: , Rfl: ??? vitamin D, ergocalciferol, (Drisdol) 1.25 MG (33837 UT) capsule, Take 1 (one) capsule by mouth every 7 days, Disp: , Rfl: Allergies Allergen Reactions ??? Codeine Nausea and/or Vomiting Past Medical History: Diagnosis Date ??? Hypertension ??? Rheumatoid arthritis (CMS/HCC) ??? Type 2 diabetes mellitus (CMS/HCC) Past Surgical History: Procedure Laterality Date ??? Hernia Repair ??? HX APPENDECTOMY ??? Ovarian Cyst Removal ??? MA REPAIR OF NASAL SEPTUM 1970 to help [...] family history on file. Physical Exam: BP 138/82 Pulse 76 Temp 96.5 ??F (35.8 ??C) Ht 1.676 m (5' 6 ) Wt 72.1 kg (159 lb) General: Alert. Oriented. NAD. Skin: Normal texture [...] interval not displayed. Recent Labs Component Name 06/29/23 1231 12/15/22 1435 09/22/22 0824 11/01/21 0851 08/05/21 0832 04/29/21 0809 BUN 7 8 7* 9 10 10 CREATININE 1.13* 1.10* 1.11* 1.12* 1.23* 1.10* EGFR 52* 54* 53* 50* 45* 52* AST 16 14 25 22 25 33 ALT 16 14 29 38* 38* 49* Imaging: PROCEDURE: ??XR FOREARM LEFT 2VW, XR FOOT RIGHT 3VW OR MORE, XR FOOT LEFT 3VW OR MORE, XR WRIST RIGHT 3VW OR MORE, XR WRIST LEFT 3VW OR MORE, XR HAND RIGHT 3VW OR MORE, XR HAND LEFT 3VW OR MORE, DATE/TIME OF EXAM: ??12/15/2022 2:23 PM, LOCATION ??[facility] ?? INDICATION: M05.9: Rheumatoid arthritis with positive rheumatoid factor, involving unspecified site ([facility]) ?? ADDITIONAL CLINICAL INFORMATION: Ordering Provider Reason [...] drug site reaction), meloxicam 15 mg daily not helping. Has been on Enbrel (07/2021- present). MTX was discussed but never started because pt was concerned about the side effects. - continue Enbrel 50 mg SC Q7D - discussed OCT exam before starting HCQ 300 mg daily. - stopped meloxicam and started diclofenac 75 md BID for pain control (will get labs in 2 weeks) ?? Immunosuppression due to 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 - [...] with Dr. Stuart Tai MD Rheumatology Fellow [facility] Medicine The following were ordered during this visit: Orders Placed This Encounter ??? COMPREHENSIVE METABOLIC PANEL Order Specific Question: Release to patient Answer: Immediate ??? HEPATITIS B SURFACE ANTIGEN W RFLX CONFIRMATION Order Specific Question: Release to patient Answer: Immediate ??? HEPATITIS C ANTIBODY Order Specific Question: Release to patient Answer: Immediate ??? QUANTIFERON-TB GOLD PLUS 4-TUBE Order Specific Question: Release to patient Answer: Immediate ??? DISCONTD: diclofenac sodium EC (Voltaren) 75 MG tablet Sig: Take 1 (one) tablet by mouth 2 times daily Dispense: 180 tablet Refill: 3 ??? DISCONTD: hydroxychloroquine (Plaquenil) 200 MG tablet Sig: Take 1.5 (one and one-half) tablets by mouth 2 times daily Dispense: 270 tablet Refill: 3 Associated attestation - Dennis Davidson MD - 08/02/2023 6:53 PM CDT (Prob #1) RA (RF/Ab to CCP +) with Erosions (Prob #2) Co-morbidities (Subj) patient remains on 50 mg Enbrel SQ/week,15 mg Meloxicam/d+ other meds. Small RN on left elbow. Still mild arthralgias.No other new complaints. (Obj) BP 138/82 Pulse 76 Temp 96.5 ??F (35.8 ??C) Ht 1.676 m (5' 6 ) Wt 72.1 kg (159 lb) (Skin) No rashes. RNs along left elbow. (HEENT/Neck) No mucosal ulcers. Moist membranes. No temporal/carotid tenderness. (General) Unremarkable (Extrem) PENITENTIARY prominence.1-3rd MCPs SfT0. L wrist SfT0;No other levi synovitis. MS= bilat (Assess) Stable overall with arthralgias (Plan) Continue Enbrel 50 mg SQ/week with yearly TB/Hep screening.Will start HCQ 300 mg/d if eye exam fine. DC meloxcam and start Diclofenac 75 mfg bid. Labs in 2 weeks. RTO in 4 months.I observed,examined, and discussed with Zaire. I confirm her findings and note. Dennis Davidson MD, FACP, FAAP, MACR Supervisor [employer] Testing and Pediatric Rheumatology Professor of Internal Medicine,Pediatrics, and Molecular Immunology [facility] Rheumatoid Arthritis Disease History: RA disease activity: [...] Office Visit [facility] GI [address] [place] [address], [place] [address] Thalia Dunlap MD [address] [place] [address] [address] [place] [phone] 01/09/2025 2:30 PM CDT Office Visit [facility] - [address], [place] [address] Matias Lewis III, MD [address] [place] [address] [address] [phone] 02/25/2025 2:30 PM CDT Office Visit [facility] - Rheumatology [address] [place] [address], [place] [phone] Lonnie Tai MD [address] [facility] [place] [address] Scheduled Orders Name Type Priority Associated Diagnoses Orde r Schedule QUANTIFERON-TB GOLD PLUS 4-TUBE Lab Routine 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 arthritis (HCC) Therapeutic drug monitoring High risk medication use Ordered: 08/01/2023 documented as of this encounter Procedures Procedure Name Priority Date/Time Associated Diagnosis Comments QUANTIFERON TB-GOLD 08/16/2023 8 :36 AM CDT COMPREHENSIVE METABOLIC PANEL Routine 08/16/2023 8:36 AM CDT 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 arthritis (HCC) Therapeutic drug monitoring High risk medication use HEPATITIS B SURFACE ANTIGEN W RFLX CONFIRMATION Routine 08/16/2023 8:36 AM CDT 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 arthritis (HCC) Therapeutic drug monitoring High risk medication use HEPATITIS C ANTIBODY Routine 08/16/2023 8:36 AM CDT 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 arthritis (HCC) Therapeutic drug monitoring High risk medication use documented in this encounter Results * QUANTIFERON TB-GOLD (08/16/2023 8:36 AM CDT) QuantiFERON Incubation Incubation performed. [facility] INSURANCE BILL [...] Resulting Agency Comment Lab Testing performed at: [facility] [address] [facility] ??[facility] [phone] Lonnie Tai MD LAB - CHEMISTRY ORDERABLES [facility] INSURANCE BILL [address] [place] [address] * HEPATITIS C ANTIBODY (08/16/2023 8:36 AM [...] Resulting Agency Comment Lab [facility] performed at: [facility] [address] [place] [address] Road ??[facility] [phone] Lonnie Tai MD LAB - CHEMISTRY ORDERABLES Performing Organization Address City/[facility]/ZIP Co de Phone Number [facility] INSURANCE BILL [address] [place] [address] * HEPATITIS B SURFACE ANTIGEN W RFLX CONFIRMATION (08/16/2023 8:36 AM CDT) Pathologist [facility] Hepatitis B Virus Surface Antigen Negative Negative [facility] INSURANCE BILL Comment:FASTING Blood BLOOD SPECIMEN / Unknown 08/16/2023 8:36 AM CDT 08/16/2023 Narrative Resulting Agency Comment Lab Testing performed at: [facility] ??[facility] [phone] Lonnie Tai MD LAB - CHEMISTRY ORDERABLES Performing Organization Address [facility] de Phone Number [facility] INSURANCE BILL [address] [place] [address] * (ABNORMAL) COMPREHENSIVE METABOLIC PANEL (08/16/2023 8:36 AM CDT) Glucose 107(H) 70 - 99 mg/dL [facility] INSURANCE BILL BUN 10 8 - 27 mg/dL [facility] INSURANCE BILL Creatinine 1.26(H) 0.57 - 1.00 mg/dL [facility] INSURANCE BILL eGFR by CKD-EPI 46(L) >59 mL/min/1.7 3 [facility] INSURANCE BILL BUN/Creatinine Ratio 8(L) 12 - 28 [facility] INSURANCE BILL Sodium 135 134 - 144 mmol/L [facility] INSURANCE BILL Potassium 4.1 3.5 - 5.2 mmol/L [facility] INSURANCE BILL Chloride 98 96 - 106 mmol/L [facility] INSURANCE BILL CO2 23 20 - 29 mmol/L [facility] INSURANCE BILL Calcium 9.4 8.7 - 10.3 mg/dL [facility] INSURANCE BILL Protein Total 6.0 6.0 - 8.5 g/dL [facility] INSURANCE BILL Albumin 4.3 3.8 - 4.8 g/dL [facility] INSURANCE BILL Globulin Total 1.7 1.5 - 4.5 g/dL [facility] INSURANCE BILL Albumin/Globulin Ratio 2.5(H) 1.2 - 2.2 [facility] INSURANCE BILL Bilirubin Total 0.2 0.0 - 1.2 mg/dL [facility] INSURANCE BILL Alkaline Phosphatase 104 44 - 121 IU/L [facility] INSURANCE BILL AST 14 0 - 40 IU/L [facility] INSURANCE BILL ALT 12 0 - 32 IU/L [facility] INSURANCE BILL Comment:FASTING Blood BLOOD SPECIMEN / Unknown 08/16/2023 8:36 AM CDT 08/16/2023 Narrative Resulting Agency Comment Lab Testing performed at: [facility] ??[facility] [phone] Lonnie Tai MD LAB - CHEMISTRY ORDERABLES [facility] INSURANCE BILL [address] [place] [address] documented in this encounter Visit Diagnoses Diagnosis 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 arthritis (HCC)- Primary Rheumatoid arthritis Therapeutic drug monitoring Encounter for therapeutic drug monitoring High risk medication use Encounter for long-term (current) use of other medications documented in this encounter Care Teams First Aid Attendant Relationship Specialty Start Date End Date Tanya Jane MD [address] [place] [address] DAVID Jackman [phone] PCP - General 01/05/18 07/09/24 documented as of this encounter
--- OUTSIDE RECORDS SUMMARY | 2024-11-09 23:14 | XMS_ITS | Encounter Summary ---
Author Organization [facility] Address [address] [facility] [place] [address] Care Team Providers Care Data Center Consultant Name Role Phone Tanya Jane MD Primary Care Provider [phone] Reason for Visit * Reason Onset Date Comments MEDICATION REFILL 01/11/2023 Enbrel Encounter Details Date Type Department Care Team (Late st Contact Info) Description 01/11/2023 Refill [facility] [address] [place] [address], [facility] [place] [address] Kervin Oates MD [address] [place] [address] [place] [phone] MEDICATION REFILL (Enbrel) Social History Tobacco Use Types Packs/Day Years [...] encounter Miscellaneous Notes * Telephone Encounter - Treasure Salas RN - 01/11/2023 2:34 PM CDT Refill Request Kianna Hill TREVON: 12/20/22 NOV due: NOV scheduled: 06/20/2023 LRF: 12/15/22 Qty Disp: 4 # of refills: 5 Labs: 12/15/22 Allergies: Allergies Allergen Reactions ??? Codeine Nausea [...] Office Visit [facility] [address] [place] [address], [place] [address] Thalia Dunlap MD [address] [place] [address] [address] [place] [phone] 01/09/2025 2:30 PM CDT Office Visit [facility] [address] [place] [address], [place] [phone] Matias Lewis III, MD [address] [place] [address] [address] [place] [phone] 02/25/2025 2:30 PM CDT Office Visit [facility] - Rheumatology [address] [place] [address], [place] [phone] Lonnie Tai MD [address] [facility] [place] [address] documented as of this encounter Visit Diagnoses Diagnosis 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 erosive rheumatoid arthritis (HCC) documented in this encounter Care Teams Data Center Consultant Relationship Specialty Start Date End Date Tanya Jane MD [address] [place] [address] [place] [phone] PCP - General 01/05/18 07/09/24 documented as of this encounter
--- OUTSIDE RECORDS SUMMARY | 2024-11-09 23:14 | XMS_ITS | Encounter Summary ---
Author Organization [facility] Health Address [address] [facility] [place] [address] Care Team Providers Care Lead Software Qa Engineer Name Role Phone Tanya Jane MD Primary Care Provider [phone] Encounter Details Date Type Department Care Team (Latest Contact Info) Description 10/04/2023 Travel Social History Tobacco Use Types Packs/Day [...] Office Visit [facility] [address] [place] [address], [place] [phone] Thalia Dunlap MD [address] [place] [address] [address] [place] [phone] 01/09/2025 2:30 PM CDT Office Visit [facility] - GI [address] [place] [address], [place] [phone] Matias Lewis III, MD [address] [place] [address] [address] [place] [phone] 02/25/2025 2:30 PM CDT Office Visit [facility] - Rheumatology [address] [place] [address], [place] [address] Lonnie Tai MD [address] [facility] [place] [address] documented as of this encounter Visit Diagnoses Not on filedocumented in this encounter Care Teams Lead Software Qa Engineer Relationship Specialty Start Date End Date Tanya Jane MD [address] [place] [address] [place] [phone] PCP - General 01/05/18 07/09/24 documented as of this encounter
--- OUTSIDE RECORDS SUMMARY | 2024-11-09 23:14 | XMS_ITS | Encounter Summary ---
Author Organization [facility] Health Address [address] [facility] [place] [address] Care Team Providers Care Mixed Crop And Livestock Farm Worker Name Role Phone Tanya Jane MD Primary Care Provider [phone] Encounter Details Date Type Department Care Team (Latest Contact Info) Description 01/17/2024 Travel Social History Tobacco Use Types Packs/Day [...] Office Visit [facility] GI [address] [place] [address], [place] [phone] Thalia Dunlap MD [address] [place] [place] [address] [address] [place] [phone] 01/09/2025 2:30 PM CDT Office Visit [facility] - GI [address] [place] [address], [place] [phone] Matias Lewis III, MD [address] [place] [place] [address] [address] [address] 02/25/2025 2:30 PM CDT Office Visit [facility] - Rheumatology [address] [place] [address] [place] [address] Lonnie Tai MD [address] [facility] [place] [address] documented as of this encounter Visit Diagnoses Not on filedocumented in this encounter Care Teams Mixed Crop And Livestock Farm Worker Relationship Specialty Start Date End Date Tanya Jane MD [address] [place] [address] [place] [address] PCP - General 01/05/18 07/09/24 documented as of this encounter
--- OUTSIDE RECORDS SUMMARY | 2024-11-09 23:14 | XMS_ITS | Encounter Summary ---
Author Organization [facility] Address [address] [facility] [place] [address] Care Team Providers Care Senior Interaction Designer Name Role Phone Tanya Jane MD Primary Care Provider [phone] Reason for Visit * Reason Onset Date Comments MEDICATION REFILL 07/17/2023 Encounter Details Date Type Department Care Team (Late st Contact Info) Description 07/17/2023 Refill [facility] - Rheumatology [address] [facility], [place] [phone] Lonnie Tai MD [address] [facility] [place] [address] MEDICATION REFILL Social History Tobacco Use Types [...] * Telephone Encounter - Eleanor Gallo - 07/17/2023 2:02 PM CDT Refill Request Kianna Hill TREVON: 05/16/2023 NOV scheduled: 08/01/2023 LRF:01/11/2023 Qty Disp:4mL # of refills: 5 Allergies: Allergies Allergen Reactions ??? Codeine Nausea [...] Office Visit [facility] GI [address] [place] [address], [place] [phone] Thalia Dunlap MD [address] [place] [address] [address] [place] [phone] 01/09/2025 2:30 PM CDT Office Visit [facility] GI [address] [place] [address], [place] [phone] Matias Lewis III, MD [address] [place] [address] [address] [phone] 02/25/2025 2:30 PM CDT Office Visit [facility] - Rheumatology [address] [place] [address], [place] [address] Lonnie Tai MD [address] [facility] [place] [address] documented as of this encounter Visit Diagnoses Diagnosis 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 erosive rheumatoid arthritis (HCC) documented in this encounter Care Teams Senior Interaction Designer Relationship Specialty Start Date End Date Tanya Jane MD [address] [place] [address] [place] [address] PCP - General 01/05/18 07/09/24 documented as of this encounter
--- OUTSIDE RECORDS SUMMARY | 2024-11-09 23:14 | XMS_ITS | Encounter Summary ---
Author Organization [facility] Address [address] [facility] [place] [address] Care Team Providers Care Gis Analyst Developer Name Role Phone Tanya Jane MD Primary Care Provider [phone] Reason for Visit * Reason Onset Date Comments Medication Prior Auth Request 10/17/2023 En brel Encounter Details Date Type Department Care Team (Late st Contact Info) Description 10/17/2023 Telephone [facility] - Rheumatology [address] [place] [address], [facility] [place] [address] Kervin Oates MD [address] [place] [address] [place] [address] Medication Prior Auth Request (Enbrel) Social History Tobacco Use Types Packs/Day [...] encounter Miscellaneous Notes * Telephone Encounter - Marin Hilliard CPhT - 10/17/2023 7:58 AM NONFARM ANIMAL CARETAKER Medication Prior Authorization ?? Medication: Enbrel SureClick 50MG/ML auto-injectors Status: Approved through 10/22/2024 Submitted via: Cover My Meds (Blank:[email or web address]) ?? Insurance: [employer] Medicare Part D Helpdesk: [phone] ARM ANIMAL CARETAKER * Telephone Encounter - Marin Hilliard CPhT - 10/17/2023 7:50 AM NONFARM ANIMAL CARETAKER Medication Prior Authorization Medication: Enbrel SureClick 50MG/ML auto-injectors Status: Submitted - Pending Submitted via: Cover My Meds (Blank:[email or web address]) Insurance: [employer] Medicare Part D Helpdesk: [phone] ARM ANIMAL CARETAKER documented in this encounter Plan of Treatment Upcoming Encounters Date Type Department Care Team (Late st Contact Info) Description 01/09/2025 2:00 PM CDT Office Visit [facility] [address] [place] [address], [place] [address] Thalia Dunlap MD [address] [place] [address] [address] [place] [phone] 01/09/2025 2:30 PM CDT Office Visit [facility] - GI [address] [place] [address], [place] [address] Matias Lewis III, MD [address] [place] [address] [address] [place] [address] 02/25/2025 2:30 PM CDT Office Visit [facility] - Rheumatology [address] [place] [address], [place] [phone] Lonnie Tai MD [address] [facility] [place], [place] [phone] documented as of this encounter Visit Diagnoses Not on filedocumented in this encounter Care Teams Gis Analyst Developer Relationship Specialty Start Date End Date Tanya Jane MD [address] [place] [address] [place] [phone] PCP - General 01/05/18 07/09/24 documented as of this encounter
--- OUTSIDE RECORDS SUMMARY | 2024-11-09 23:14 | XMS_ITS | Encounter Summary ---
Author Organization [facility] Address [address] [place] [address] Care Team Providers Care Store Associate Name Role Phone Tanya Jane MD Primary Care Provider [phone] Encounter Details Date Type Department Care Team (Late st Contact Info) Description 01/17/2024 1:30 PM CDT Procedure visit [facility] - [address] [phone] Unknown, Provider NAFLD (nonalcoholic fatty liver disease) Social History Tobacco Use Types Packs/Day Years [...] on file documented as of this encounter Progress Notes * Thalia Dunlap MD - 01/17/2024 1:51 PM CDT Fibroscan interpretation: I have personally reviewed the Fibroscan report and associated tracings with with Dr Damon (Resident) + RN. The calculated Liver Stiffness Measurement (LSM, kPa) indicates that: The probability of advanced liver fibrosis is: MODERATE. The loss of ultrasound signal, (controlled attenuation parameter, CAP [dB/m]), indicates that the probability of hepatic steatosis is: MILD. (Elastograms excellent) THALIA DUNLAP MD PhD hat finishing materials preparer Director, Division of Gastroenterology and Hepatology Co-Director, [facility] Teaching physician attestation and verification: I attest that I have personally seen and examined this patient. I was personally present for all portions of this procedure. I have participated in medical decision making (or other relevant process) for this service as noted above. The following criteria are used to indicate the probability of advanced (stage 3-4) fibrosis: < 7.0 kPa: low 7.0-8.9 kPa: low to moderate 9.0-14.9 kPa: moderate 15-20 kPa: high > 20 kPa: very high Liver stiffness > 20 kPa is also associated with a high probability of complications of portal hypertension including varices and ascites. Liver stiffness > 50 kPa is associated with a high risk of variceal bleeding. These interpretations are based on the following published data: Kg PJ, Tete M, Treasure M, et al. Accuracy of FibroScan controlled attenuation parameter and liver stiffness measurement in assessing steatosis and fibrosis in patients with nonalcoholic fatty liver disease. Gastroenterology 2019;156:3087-0281. Mallorie MS, Luba R, Van Sivakumar ML, et al. Vibration-controlled transient elastography to assess fibrosis and steatosis in patients with nonalcoholic fatty liver disease. Clin Gastroenterol Hepatol 2019;17:156-163. Note: 1. Fibroscan cannot reliably identify earlier stages of fibrosis (ie distinguish F0 from F1 and F2)and thus a histologic stage cannot be predicted from the Fibroscan reading. 2. Assessing the likelihood of advanced fibrosis in patients with indeterminate liver stiffness measurement (LSM) by Fibroscan (e.g., 8-15 kPa) can be improved by also calculating the FIB4 score (Tobiuke et al. Hepatology Communications 2019;3:0104-3579) or NAFLD Fibrosis score (Leavitt et al. Clinical Gastroenterology and Hepatology 2019;17:6121-0629. from routine clinical data. 3. Liver stiffness can be increased by factors other than fibrosis including passive congestion, infiltrative processes, active alcoholism, biliary obstruction and marked inflammation. The interpretation of the Fibroscan result provided above may not have taken such clinical factors into account. Disease etiology also influences Fibroscan cutoff values for fibrosis stages and the following cutoffs have been proposed (Missy et al, Clin Gastro Hepatol 2015; 13:27-36): Cutoffs for Stage 3 and Stage 4 fibrosis respectively: Hepatitis B: >9 and >11.7 kPa Hepatitis C: >9.5 and >12.5 kPa HCV-HIV: >11 and >14 kPa Cholestatic liver diseases: >10 and >17.9 kPa NAFLD/LOPEZ: >10 and >14 kPa CAP estimates of steatosis: normal <200 dB/m mild 200 to 250 dB/m moderate 250-290 dB/m substantial > 290 dB/m (Note that Fibroscan is not a quantitative measure of liver fat.) These criteria are estimates and may change as additional supporting data becomes available. [email or web address] documented in this encounter Procedure Notes * Rubi Phan, RN - 01/17/2024 1:16 PM CDTAssociated Order(s): PROC FIBROSCAN Procedure(s): MN LIVER ELASTOGRAPHY Pre-Procedure Diagnose(s): Nonalcoholic fatty liver disease Diagnosis: Nonalcoholic fatty liver disease RN verified patient NPO for prior 3 hours. Procedure explained. Date of Exam: 01/17/2024 Liver Stiffness: (LSM, kPa) median: 9.9 IQR/Median% (ideally < 30%): 8% CAP (controlled attenuation parameter): 227 Technical Difficulty: Patient had fries, burger and shake 30 minutes ago Ordering Provider: Thalia Dunlap MD Phone Fax documented in this encounter Plan of Treatment Upcoming Encounters Date Type Department Care Team (Late st Contact Info) Description 01/09/2025 2:00 PM CDT Office Visit [facility] - [address], [place] [address] Thalia Dunlap MD [address] [place] [address] [address] [place] [phone] 01/09/2025 2:30 PM CDT Office Visit [facility] - [address], [place] [phone] Matias Lewis III, MD [address] [place] [address] [address] [address] 02/25/2025 2:30 PM CDT Office Visit [facility] - Rheumatology [address] [facility], [place] [address] Lonnie Tai MD [address] [facility] [place] [address] documented as of this encounter Procedures Procedure Name Priority Date/Time Associated Diagnosis Comments MN LIVER ELASTOGRAPHY Routine 01/17/2024 1:16 PM CDT Nonalcoholic fatty liver disease documented in this encounter Visit Diagnoses Diagnosis NAFLD (nonalcoholic fatty liver disease)- Primary Other chronic nonalcoholic liver disease documented in this encounter Care Teams Store Associate Relationship Specialty Start Date End Date Tanya Jane MD [address] [place] [address] [place] [phone] PCP - General 01/05/18 07/09/24 documented as of this encounter
--- OUTSIDE RECORDS SUMMARY | 2024-11-09 23:14 | XMS_ITS | Encounter Summary ---
Author Organization [facility] Health Address [address] [facility] [place] [address] Care Team Providers Care Cotton Weigher Operator Name Role Phone Tanya Jane MD Primary Care Provider [phone] Encounter Details Date Type Department Care Team (Latest Contact Info) Description 11/14/2023 Travel Social History Tobacco Use Types Packs/Day [...] Office Visit [facility] - [place] [address] [place] [address], [place] [address] Thalia Dunlap MD [address] [place] [address] [address] 1 [place] [phone] 01/09/2025 2:30 PM CDT Office Visit [facility] - [place] [address] [place] [address], [place] [phone] Matias Lewis III, MD [address] [place] [address] [address] [place] [phone] 02/25/2025 2:30 PM CDT Office Visit [facility] - Rheumatology [address] [place] [address] [place] [address] Lonnie Tai MD [address] [facility] [place] [address] documented as of this encounter Visit Diagnoses Not on filedocumented in this encounter Care Teams Cotton Weigher Operator Relationship Specialty Start Date End Date Tanya Jane MD [address] [place] [address] [place] [address] PCP - General 01/05/18 07/09/24 documented as of this encounter
--- OUTSIDE RECORDS SUMMARY | 2024-11-09 23:14 | XMS_ITS | Encounter Summary ---
Author Organization [facility] Address [address] [facility] [place] [address] Care Team Providers Care Tent Finisher Name Role Phone Tanya Jane MD Primary Care Provider [phone] Reason for Visit * Reason Onset Date Comments Question 07/24/2023 Encounter Details Date Type Department Care Team (Late Contact Info) Description 07/24/2023 Telephone [facility] - Rheumatology [address] [facility], [place] [address] Lonnie Tai MD [address] [facility] [place] [address] Question Social History Tobacco Use Types Packs/Day Years [...] Telephone Encounter - Lonnie Tai MD - 07/24/2023 11:03 AM CDT Received refill request this AM. Refilll made by covering physician Dr. Bentley last week to [facility]. Called pt x2 without response. Will refuse order at this time. documented in this encounter Plan of Treatment Upcoming Encounters Date Type Department Care Team (Late Contact Info) Description 01/09/2025 2:00 PM CDT Office Visit [facility] - GI [address] [facility], [place] [address] Thalia Dunlap MD [address] [facility] [address] 1 [place] [phone] 01/09/2025 2:30 PM CDT Office Visit [facility] - [place] [address] [place] [address], [place] [address] Matias Lewis III, MD [facility] 2L [place] [phone] 02/25/2025 2:30 PM CDT Office Visit [facility] - Rheumatology [address] [place] [address], [place] [address] Lonnie Tai MD [address] [facility] [place] [address] documented as of this encounter Visit Diagnoses Not on filedocumented in this encounter Care Teams Tent Finisher Relationship Specialty Start Date End Date Tanya Jane MD [address] [place] [address] [place] [phone] PCP - General 01/05/18 07/09/24 documented as of this encounter
--- OUTSIDE RECORDS SUMMARY | 2024-11-09 23:14 | XMS_ITS | Encounter Summary ---
Author Organization [facility] Address [address] [facility] [place] [address] Care Team Providers Care Applied Exercise Physiologist Name Role Phone Tanya Jane MD Primary Care Provider [phone] Encounter Details Date Type Department Care Team (Latest Contact Info) Description 06/29/2023 11:51 AM CDT - 06/29/2023 11:59 PM T Hospital Encounter [facility] OP DRAW STATION [address] [place] [phone] Discharge Disposition: Home or Self Care Social [...] by mouth once daily 10/01/2019 HYDROcodone-acetamin ophen ([place]) 5-325 MG tablet Take 1 (one) tablet [...] (one) capsule by mouth daily before breakfast [employer] VERIO test strip Use 1 (one) strip as directed 4 03/09/2018 potassium chloride ER (KLOR-CON) 20 MEQ tablet Take 1 (one) tablet by mouth 2 times daily 07/22/2020 simvastatin (ZOCOR) 20 MG tablet Take 1 (one) tablet by mouth 07/23/2016 valACYclovir (Valtrex) 1 GM tablet vitamin D, ergocalciferol, (Drisdol) 1.25 MG (16721 UT) capsule Take 1 (one) capsule by mouth every 7 days 10/06/2022 azithromycin (Zithromax) 250 MG tablet TAKE 2 TABLETS (500 MG) BY ORAL ROUTE ONCE DAILY FOR 1 DAY THEN 1 TABLET (250 MG) BY ORAL ROUTE ONCE DAILY FOR 4 DAYS 08/01/2023 etanercept (Enbrel) 50 MG/ML auto-injector penIndications:Serop ositive erosive rheumatoid arthritis (HCC) Inject 50 (fifty) mg subcutaneously every 7 days 4 mL 5 01/11/2023 07/17/2023 fluconazole (Diflucan) 150 MG tablet TAKE 1 TABLET BY MOUTH EVERY DAY FOR 3 DAYS 08/01/2023 meloxicam (Mobic) 7.5 MG tabletIndications:Rh eumatoid arthritis involving multiple joints (HCC),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 arthritis (HCC),High risk medication use Take 2 (two) tablets by mouth once daily as needed 90 tablet 1 05/16/2023 08/01/2023 nitroGLYCERIN (NITROSTAT) 0.4 MG tablet Dissolve 1 (one) tablet under the tongue as directed 07/05/2021 11/14/2023 nystatin (Mycostatin) 597941 UNIT/GM cream APPLY TOPICALLY TO THE AFFECTED AREA TWICE DAILY FOR 7 DAYS 11/14/2023 predniSONE (Deltasone) 20 MG tablet TAKE 2 TABLETS BY MOUTH EVERY MORNING FOR 5 DAYS 08/01/2023 triamcinolone acetonide (Kenalog) 0.1 % ointment APPLY A THIN LAYER TO THE AFFECTED AREA(S) BY TOPICAL ROUTE 2 TIMES PER DAY prn rash 11/14/2023 documented as of this encounter Plan of Treatment Upcoming Encounters Date Type Department Care Team (Late st Contact Info) Description 01/09/2025 2:00 PM CDT Office Visit [facility] - [place] [address] [place] [address] Thalia Dunlap MD [address] [place] [address] [address] 1 [place] [phone] 01/09/2025 2:30 PM CDT Office Visit [facility] - GI [address] [place] [address], [place] [address] Matias Lewis III, MD [facility] 2[place] [phone] 02/25/2025 2:30 PM CDT Office Visit [facility] - Rheumatology [address] [place] [address] [place] [address] Lonnie Tai MD [address] [facility] [place], [place] [phone] documented as of this encounter Procedures Procedure Name Priority Date/Time Associated Diagnosis Comments CBC W AUTO DIFFERENTIAL Routine 06/29/2023 12:31 PM CDT Rheumatoid arthritis of other site with positive rheumatoid factor (HCC) COMPREHENSIVE METABOLIC PANEL Routine 06/29/2023 12:31 PM CDT Rheumatoid arthritis of other site with positive rheumatoid factor (HCC) documented in this encounter Results * (ABNORMAL) COMPREHENSIVE METABOLIC PANEL (06/29/2023 12:31 PM CDT) BUN 7 7 - 26 mg/dL 06/29/2023 2:[address] [facility] Creatinine 1.13(H) 0.56 - 0.96 mg/dL 06/29/2023 2:12 PM [facility] Sodium 131(L) 136 - 145 mmol/L 06/29/2023 2:12 PM [facility] Potassium 3.5 3.5 - 4.5 mmol/L 06/29/2023 2:12 PM [facility] Chloride 96(L) 98 - 107 mmol/L 06/29/2023 2:12 PM [facility] CO2 24 22 - 29 mmol/L 06/29/2023 2:12 PM [facility] Glucose 274(H) 70 - 115 mg/dL 06/29/2023 2:12 PM [facility] Calcium 9.0 8.4 - 10.2 mg/dL 06/29/2023 2:12 PM [facility] Protein Total 6.5 6.0 - 8.3 g/dL 06/29/2023 2:12 PM [facility] Albumin 4.2 3.4 - 5.0 g/dL 06/29/2023 2:12 PM [facility] Bilirubin Total 0.5 0.2 - 1.2 mg/dL 06/29/2023 2:12 PM [facility] Alkaline Phosphatase 108 40 - 150 U/L 06/29/2023 2:12 PM [facility] ALT 16 5 - 55 U/L 06/29/2023 2:12 PM [facility] AST 16 5 - 34 U/L 06/29/2023 2:12 PM [facility] Anion Gap 11 6 - 16 06/29/2023 2:12 PM [facility] BUN/Creatinine Ratio 6(L) 7 - 23 06/29/2023 2:12 PM [facility] Osmolality Calculated 280 270 - 300 mOsm/kg 06/29/2023 2:12 PM [facility] Albumin/Globulin Ratio 1.8 1.1 - 2.3 06/29/2023 2:12 PM [facility] eGFR by CKD-EPI 52(L) >=90 mL/min/1.7 3 m2 06/29/2023 2:12 PM [facility] Blood BLOOD SPECIMEN / Unknown Lab Venipuncture / Unknown 06/29/2023 12:31 PM CDT 06/29/2023 1:43 PM CDT Dennis Davidson MD LAB - CHEMISTRY [facility] Organization Address City/State/ZIP Co de Phone Number [facility] [address] [place] [address] [phone] * (ABNORMAL) CBC WITH DIFFERENTIAL (06/29/2023 12:31 PM CDT) WBC 7.1 3.5 - 10.5 10? 3 /uL 06/29/2023 1:51 PM [facility] RBC 4.22 3.80 - 5.20 10? 6 /uL 06/29/2023 1:51 PM [facility] Hemoglobin 11.0(L) 12.0 - 15.6 g/dL 06/29/2023 1:51 PM [facility] Hematocrit 33.9(L) 35.0 - 45.0 % 06/29/2023 1:51 PM [facility] MCV 80.3(L) 80.7 - 98.3 fL 06/29/2023 1:51 PM [facility] MCH 26.1(L) 26.7 - 34.0 pg 06/29/2023 1:51 PM [facility] MCHC 32.4 30.8 - 35.9 g/dL 06/29/2023 1:51 PM [facility] RDW-SD 45.4 36.0 - 50.0 fL 06/29/2023 1:51 PM [facility] RDW-CV 15.7(H) 11.2 - 14.8 % 06/29/2023 1:51 PM [facility] Platelet Count 213 150 - 400 10? 3 /uL 06/29/2023 1:51 PM [facility] MPV 10.9 9.4 - 12.9 fL 06/29/2023 1:51 PM [facility] nRBC Absolute 0.00 0 10? 3 /uL 06/29/2023 1:51 PM [facility] nRBC Auto 0.0 0 /100 WBC 06/29/2023 1:51 PM [facility] Neutrophils % 73.9(H) 35.0 - 70.0 % 06/29/2023 1:51 PM [facility] Lymphocytes % 16.8(L) 20.0 - 43.0 % 06/29/2023 1:51 PM [facility] Monocytes % 6.6 5.0 - 13.0 % 06/29/2023 1:51 PM [facility] Eosinophils % 1.3 0.0 - 6.0 % 06/29/2023 1:51 PM [facility] Basophil % 1.0 0.0 - 2.0 % 06/29/2023 1:51 PM [facility] Neutrophils Absolute 5.28 1.60 - 7.00 10? 3 /uL 06/29/2023 1:51 PM [facility] Lymphocyte Absolute 1.20 1.10 - 3.90 10? 3 /uL 06/29/2023 1:51 PM [facility] Monocytes Absolute 0.47 0.26 - 1.07 10? 3 /uL 06/29/2023 1:51 PM [facility] Eosinophils Absolute 0.09 0.00 - 0.47 10? 3 /uL 06/29/2023 1:51 PM [facility] Basophils Absolute 0.07 0.00 - 0.08 10? 3 /uL 06/29/2023 1:51 PM [facility] Immature Granulocytes % 0.4 0.0 - 1.0 % 06/29/2023 1:51 PM CDT [facility] Immature Granulocytes Absolute 0.03 06/29/2023 1:51 PM CDT [facility] Blood BLOOD SPECIMEN / Unknown Lab Venipuncture / Unknown 06/29/2023 12:31 PM CDT 06/29/2023 1:44 PM CDT Dennis Davidson MD LAB - HEMATOLOGY ORD ERABLES Performing Organization Address City/[facility] Co de Phone Number [facility] [address] [place] [address] [phone] documented in this encounter Visit Diagnoses Diagnosis Rheumatoid arthritis of other site with positive rheumatoid factor (HCC)- Primary documented in this encounter Care Teams Applied Exercise Physiologist Relationship Specialty Start Date End Date Tanya Jane MD [address] [place] [address] PCP - General 01/05/18 07/09/24 documented as of this encounter
--- OUTSIDE RECORDS SUMMARY | 2024-11-09 23:14 | XMS_ITS | Encounter Summary ---
Author Organization [facility] Address [address] [facility] [place] [address] Care Team Providers Care Oil Field Operator Name Role Phone Tanya Jane MD Primary Care Provider [phone] Reason for Visit * Reason Onset Date Comments MEDICATION REFILL 07/24/2023 Encounter Details Date Type Department Care Team (Late st Contact Info) Description 07/24/2023 Refill [facility] - Rheumatology [address] [facility], [place] [phone] Lonnie Tai MD [address] [facility] [place] [address] MEDICATION REFILL Social History Tobacco Use Types [...] encounter Miscellaneous Notes * Telephone Encounter - AcevesJaswantrubi - 07/24/2023 2:31 PM CDT Refill Request Kianna Hill TREVON: 05/16/2023 NOV scheduled: 08/01/2023 LRF: 07/17/2023 Qty Disp: 4 ml # of refills: 5 I know you filled this already for 5 refills but the pharmacy is stating they don't have that RX. Patient is calling several times stating that it has been 3 days without her Embrel . I called pharmacy to see what is going on , and they stated they don't have a RX on file . Allergies: Allergies Allergen Reactions ??? Codeine Nausea [...] Office Visit [facility] - [place] [address] [place] [address], [place] [phone] Thalia Dunlap MD [address] [place] [address] [address] [place] [phone] 01/09/2025 2:30 PM CDT Office Visit [facility] - GI [address] [place] [address], [place] [phone] Matias Lewis III, MD [address] [place] [address] [address] [address] 02/25/2025 2:30 PM CDT Office Visit [facility] - Rheumatology [address] [place] [address], [place] [phone] Lonine Tai MD [address] [facility] [place] [address] documented as of this encounter Visit Diagnoses Diagnosis 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 erosive rheumatoid arthritis (HCC) documented in this encounter Care Teams Oil Field Operator Relationship Specialty Start Date End Date Tanya Jane MD [address] [place] [address] [place] [address] PCP - General 01/05/18 07/09/24 documented as of this encounter
--- OUTSIDE RECORDS SUMMARY | 2024-11-09 23:14 | XMS_ITS | Encounter Summary ---
Author Organization [facility] Address [address] [facility] [place] [address] Care Team Providers Care Support Representative Name Role Phone Tanya Jane MD Primary Care Provider [phone] Reason for Visit * Reason Onset Date Comments MEDICATION REFILL 01/17/2024 Encounter Details Date Type Department Care Team (Late st Contact Info) Description 01/17/2024 Refill [facility] - Rheumatology [address] [facility], [place] [phone] Lonnie Tai MD [address] [facility] [place] [address] MEDICATION REFILL Social History Tobacco Use Types [...] * Telephone Encounter - Eleanor Gallo - 01/17/2024 8:58 AM CDT Refill Request Kianna Hill TREVON: 11/14/2023 NOV scheduled: 05/14/2024 LRF: 07/26/2023 Qty Disp:4mL # of refills: 5 Allergies: [...] Office Visit [facility] - [place] [address] [place] [address], [place] [address] [place] [address] [place] [address] [address] [place] [address] 01/09/2025 2:30 PM CDT Office Visit [facility] - [place] [address] [place] [address], [place] [address] Matias Lewis III, MD [address] [place] [address] [address] [address] 02/25/2025 2:30 PM CDT [facility] [address] [place] [address], [place] [address] Lonnie Tai MD [address] [facility] [place] [address] documented as of this encounter Visit Diagnoses Diagnosis 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 erosive rheumatoid arthritis (HCC) documented in this encounter Care Teams Support Representative Relationship Specialty Start Date End Date Tanya aJne MD [address] [place] [address] [place] [address] PCP - General 01/05/18 07/09/24 documented as of this encounter
--- OUTSIDE RECORDS SUMMARY | 2024-11-09 23:14 | XMS_ITS | Encounter Summary ---
Author Organization [facility] Health Address [address] [facility] [place] [address] Care Team Providers Care Division Sales Manager Name Role Phone Tanya Jane MD Primary Care Provider [phone] Encounter Details Date Type Department Care Team (Latest Contact Info) Description 05/16/2023 Travel Social History Tobacco Use Types Packs/Day [...] 2:00 PM CDT Office Visit [facility] - [address], [place] [phone] Thalia Dunlap MD [address] [place] [address] [address] [place] [address] 01/09/2025 2:30 PM CDT Office Visit [facility] - [address], [place] [phone] Matias Lewis III, MD [address] [place] [address] [address] [place] [address] 02/25/2025 2:30 PM CDT Office Visit [facility] - Rheumatology [address] [facility], [place] [address] Lonnie Tai MD [address] [facility] [place] [address] documented as of this encounter Visit Diagnoses Not on filedocumented in this encounter Care Teams Division Sales Manager Relationship Specialty Start Date End Date Tanya Jane MD [address] [place] [address] [place] [phone] PCP - General 01/05/18 07/09/24 documented as of this encounter
--- OUTSIDE RECORDS SUMMARY | 2024-11-09 23:14 | XMS_ITS | Encounter Summary ---
Author Organization [facility] Address [address] [facility] [place] [address] Care Team Providers Care Printing Technician Name Role Phone Eliana Mcneal Primary Care Provider [phone] Encounter Details Date Type Department Care Team (Latest Contact Info) Description 07/10/2024 Travel Social History Tobacco Use Types Packs/Day [...] Office Visit [facility] [address] [place] [address], [place] [address] Thalia Dunlap MD [address] [place] [address] [address] [place] [phone] 01/09/2025 2:30 PM CDT Office Visit [facility] [address] [place] [address], [place] [phone] Matias Lewis III, MD [address] [place] [address] [address] [place] [address] 02/25/2025 2:30 PM CDT Office Visit [facility] - Rheumatology [address] [place] [address] [place] [address] Lonnie Tai MD [address] [facility] [place] [address] documented as of this encounter Visit Diagnoses Not on filedocumented in this encounter Care Teams Printing Technician Relationship Specialty Start Date End Date Eliana Mcneal [address] [place] [address] PCP - General 07/10/24 documented as of this encounter
--- OUTSIDE RECORDS SUMMARY | 2024-11-09 23:14 | XMS_ITS | Encounter Summary ---
Author Organization [facility] Address [address] [facility] [place] [address] Care Team Providers Care Dean For Student Affairs Name Role Phone Eliana Mcneal Primary Care Provider [phone] Reason for Referral * Consultation (Routine) - Closed Specialty Diagnoses / Procedures Referred By Khoa soria Referred To Contact Internal Medicine Diagnoses Metabolic dysfunction-associated steatotic liver disease (MASLD) Weight gain Controlled type 2 diabetes mellitus without complication, without long-term current use of insulin (HCC) Thalia Dunlap MD [address] [facility] [address] [place] [address] Matias Lewis III, MD [facility]5 [facility] [address] [place] [address] Referral ID Status Reason Start Date Expiration Date V isits Requested Visits Authorized [id number] Closed Specialty Services Required 07/10/2024 07/10/2025 1 1 * Radiology Services (Routine) - Closed Specialty Diagnoses / Procedures Referred By Khoa soria Referred To Contact Gastroenterology Diagnoses NAFLD (nonalcoholic fatty liver disease) Procedures PROC FIBROSCAN Thalia Dunlap MD [address] [facility] [address] [place] [address] [facility] [address] [facility], [place] [address] Referral ID Status Reason Start Date Expiration Date Visits Re quested Visits Authorized [id number] Closed 07/10/2024 07/10/2025 1 1 Encounter Details Date Type Department Care Team (Late st Contact Info) Description 07/10/2024 1:00 PM CDT Office Visit [facility] GI [address] [facility], [place] [address] Thalia Dunlap MD [facility]5 [facility] [address] [place] [phone] Metabolic dysfunction-associate d steatotic liver disease (MASLD) (Primary Dx); NAFLD (nonalcoholic fatty liver disease); Weight gain; Controlled type 2 diabetes mellitus without complication, without long-term current use of insulin (HCC); Metabolic syndrome; Splenomegaly; Elevated liver enzymes Social History Tobacco Use [...] Sign Reading Time Taken Comments Blood Pressure 118/68 07/10/2024 1:23 PM CDT Pulse 81 07/10/2024 1:23 PM CDT Temperature - - Respiratory Rate - - Oxygen Saturation 100% 07/10/2024 1:23 PM CDT Inhaled Oxygen Concentration - - Weight 75.1 kg (165 lb 9.6 oz) 07/10/2024 1:23 P M CDT Height 170.2 cm (5' 7 ) 07/10/2024 1:23 PM CDT Body Mass Index 25.94 07/10/2024 1:23 PM CDT documented in this encounter Progress Notes * Bobby Talamantes MD - 07/10/2024 1:07 PM CDT [facility] INITIAL EVALUATION Patient: Kianna Hill Sex: female Age: [age] year old Date of : 1950 Subjective CC: MSALD History of Present Illness: Kianna Hill is a 73 year old female with pmh of - RA, hypertension, diabetes mellitus, and dyslipidemia, hypothyroidism, GERD who presents for follow up on MASLD Problems and workup MASLD Referred for inc LFTs since 2019, chronic liver disease workup: neg US 12/2021: fatty liver; GB stones; splenomegaly - 14.5cm Fibroscan 12/15/2022: CAP: 323; Liver stiffness 7.7 Fibroscan 01/17/2024:CAP: 227;Liver stiffness 9.9 Colon cancer screening C-scope: 3-4 years ago; advised to repeat in 5 years FH: no sig. No known CRC. Brother had cholecystectomy. Denies history of celiac disease, hypothyroidism and HIV SH: stopped smoking 20 years ago. No etoh, no IVDU. [employer] for 30 years. Per past notes: Background of RA on [...] 13 lbs having been started on Mounjaro. Interval hx 01/17/24 Doing well. Lost 3 lbs. Currently on Mounjaro. Tolerating meds without issue. Has cut down on alcohol intake to 2-3x per month (used to drink daily). No pruritus. No jaundice or rigors or steatorrhea. No changes in bowel habit and no hematemesis or melena. Does endorse reflux symptoms but no dysphagia or odynophagia or biliary colic or abdominal pain. Has lost weight 72 >>69 today. Reports has been on mounjaro and tolerating well Interval hx 07/10/24 Tired last couple months, force herself to do things, mood is good, no sad. Says hot weather makes her fatigued more. Caffeine: about 12 cup a day, Soda: no Time of last meal before bed: 4-56 hrs before bedtime Herbal products: no Off of mounjaro for last 2 months, says took her off of it after very low blood sugar. Wt last time 152, now up to 167 Not exercising. Still eating fast foods 4-5 times a week. Review of systems: Chest pain: none Shortness [...] visit. Wt Readings from Last 3 Encounters: 01/17/24 69.1 kg (152 lb 6.4 oz) 11/14/23 71.9 kg (158 lb 9.6 oz) 08/01/23 72.1 kg (159 lb) Current BMI: 23. kg/m2 Skin: no jaundice, [...] results for input(s): TRIGLYCERIDE in the last 23863 hours. TSH: HbA1c: Recent Labs Component Name 12/15/22 1435 HGBA1C 6.7* Imaging/Other diagnostic testing: Fibroscan: Fibroscan 12/15/2022: XL probe Success 10/03 = 100% CAP: 323; IQR 53 Liver stiffness 7.7; IQR/Med: 16 - The probability of advanced liver fibrosis is: LOW TO MODERATE. - The loss of ultrasound signal, (controlled attenuation parameter, CAP [dB/m]), indicates that theprobability of hepatic steatosis is: SUBSTANTIAL / HIGH . (Elastograms not ideal; a few acceptable) Fibroscan 01/16 Liver stiffness increased to 9.9 EGD: in the 80s Colonoscopy: 3-4 year ago, instructed to repeat in 5 years Ultrasound: 01/09/2022 IMPRESSION: 1. Mild hepatic steatosis. No discrete hepatic lesion or intrahepatic biliary dilation. Patent hepatic vasculature. 2. Cholelithiasis. 3. Splenomegaly. Assessment & Plan Kianna Hill is a 73 year old female with pmh of - RA, hypertension, diabetes mellitus, and dyslipidemia, hypothyroidism, GERD who presents for follow up on MASLD MASLD Referred for inc LFTs since 2019, chronic liver disease workup: neg (of note, ceruloplasmin not checked, need to obtain to definitively rule out) US 12/2021: fatty liver; GB stones; splenomegaly - 14.5cm Fibroscan 12/15/2022: CAP: 323; Liver stiffness 7.7 Fibroscan 01/17/2024:CAP: 227;Liver stiffness 9.9 Colon cancer screening C-scope: 3-4 years ago; advised to repeat in 5 years Recommendations Fibroscan today Given hypoglycemia, sulfonylurea should have taken off rather than Mounjaro, or the dose of sulfonylurea should have been reduced. Will refer to weight management clinic at [facility]. Discussed w Dr. Dunlap. RTC in 6 mon Bobby Talamantes MD 07/10/2024 1:08 PM Associated attestation - Thalia Dunlap MD - 07/10/2024 6:00 PM CDT GI & Hepatology Attending Note I saw Ms. Hill in the Metabolic Liver Clinic with Dr. Talamantes at [facility] today for follow up visit regarding: MASLD Elevated liver enzymes Borderline splenomegaly on imaging Metabolic syndrome Relevant issues RA on Humira DM Hyperlipidemia Hypertension Hypothyroidism GB stones Interim history: Kianna Hill is a 73 yo female who was seen in the Metabolic Liver Service for FU of MASLD. Due forrepeat Fibroscan today. Was experiencing low blood sugars with Mounjaro, so this was stopped by PCP. Weight increased. Admitted to poor dietary intake; has fast food 4-5x per week. Has cut down on alcohol intake to 2-3x permonth (used to drink daily). No physical activities. C/o fatigue. No pruritus. No jaundice or rigors or steatorrhea. No changes in bowel habit and no hematemesis or melena. No changes in bowel habits. Last C- scope 2 years ago. Per past notes: Background [...] cholecystectomy. SH: stopped smoking 20 years ago. [employer] for 30 years. Physical Exam: BP 118/68 Pulse 81 Ht 1.702 m (5' 7 ) Wt 75.1 kg (165 lb 9.6 oz) SpO2 100% Wt Readings from Last 3 Encounters: 07/10/24 75.1 kg (165 lb 9.6 oz) 01/17/24 69.1 kg (152 lb 6.4 oz) 11/14/23 71.9 kg (158 lb 9.6 oz) BMI 25.9 Affect good Neuro cognitively intact Abdomen no distension; no stigmata of CLD; no jaundice Limb: no peripheral edema Relevant test results: 01/2024: Platelet 297 INR 1.1 Creatinine 1.41 Sodium 132 Albumin 4.1 Bilirubin 0.4 ALP 70 ALT 16 AST 16 07/2023: Creatinine 1.26 Albumin 4.3 ALP 104 [...] splenomegaly on imaging Metabolic syndrome Recommended Fibroscan today. Reiterated association between MASLD, metabolic risk factors, and cardiovascular risks; reiterated importance of dietary modification. Recommended referral to Metabolic weight management with Dr Lewis in view of recent weight gain. Fibroscan 07/10/2024: XL probe Success 09/02 = 100% CAP: 300; IQR: 18 Liver stiffness 7.9; IQR/Med: 6 - The probability of advanced liver fibrosis is: LOW to MODERATE. - The loss of ultrasound signal, (controlled attenuation parameter, CAP [dB/m]), indicates that theprobability of hepatic steatosis is: SUBSTANTIAL / HIGH. (Elastograms acceptable) -> reassured that liver stiffness readings have not increased; instead, readings are lower than before and that likelihood of having advanced liver disease is low to moderate. FU 6 months with repeat Fibroscan; to see Dr Lewis also. Please refer to the Fellow's note for full details of this visit. Once again, it was a pleasure participating in your patient's care. Please feel free to contact me if you have any questions or if I can be of any further assistance to your patients. Sincerely, THALIA DUNLAP MD PhD Professor of Internal Medicine Director, Division of Gastroenterology and Hepatology Co-Director, [facility] Overall time: to review charts, conduct physical examination, and to discuss investigations and management plans - 45 mins. This visit has been a part of the consistent, comprehensive, and ongoing management of the chronic medical condition(s) listed above for patient. Teaching physician attestation and verification: I attest [...] [facility] [place] [address] Thalia Dunlap MD [facility] [place] [address] 01/09/2025 2:30 PM CDT Office Visit [facility] [address] [facility], [place] [address] Matias Lewis III, MD [address] [place] [address] 02/25/2025 2:30 PM CDT Office Visit [facility] - Rheumatology [address] [facility], [place] [address] Lonnie Tai MD [address] [facility] [place] [id number] Scheduled Referrals Name Type Priority Associated Diagnoses Orde r Schedule Ref to Metabolic Clinic - Dr. Lewis - [facility] Outpatient Referral Routine Metabolic dysfunction-associat ed steatotic liver disease (MASLD) Weight gain Controlled type 2 diabetes mellitus without complication, without long-term current use of insulin (HCC) Ordered: 07/10/2024 documented as of this encounter Results * CA LIVER ELASTOGRAPHY (07/10/2024 2:37 PM CDT) Narrative Rubi Phan RN - 07/10/2024 2:37 PM CDT Rubi Phan, RN ? 07/10/2024 ??2:53 PM Diagnosis: NAFLD [...] documented in this encounter Visit Diagnoses Diagnosis Metabolic dysfunction-associated steatotic liver disease (MASLD)- Primary NAFLD (nonalcoholic fatty liver disease) Other chronic nonalcoholic liver disease Weight gain Abnormal weight gain Controlled type 2 diabetes mellitus without complication, without long-term current use of insulin (HCC) Metabolic syndrome Dysmetabolic Syndrome X Splenomegaly Elevated liver enzymes Nonspecific elevation of levels of transaminase or lactic acid dehydrogenase (LDH) Metabolic dysfunction-associated steatotic liver disease (MASLD)- Primary NAFLD (nonalcoholic fatty liver disease) Other chronic nonalcoholic liver disease documented in this encounter Care Teams Dean For Student Affairs Relationship Specialty Start Date End Date Eliana Mcneal [address] [place] [address] PCP - General 07/10/24 documented as of this encounter
--- OUTSIDE RECORDS SUMMARY | 2024-11-09 23:14 | XMS_ITS | Encounter Summary ---
Author Organization [facility] Address [address] [facility] [place] [address] Care Team Providers Care Student Development Dean Name Role Phone Tanya Jane MD Primary Care Provider [phone] Reason for Visit * Reason Onset Date Comments Appointment 03/31/2023 Encounter Details Date Type Department Care Team (Late Contact Info) Description 03/31/2023 Telephone [facility] - Rheumatology [address] [facility], [place] [address] Abran Aleman MD [facility] [place] [address] Appointment Social History Tobacco Use Types Packs/Day [...] * Telephone Encounter - Eleanor Gallo - 03/31/2023 12:16 PM CDT I call patient to inform them that they appointment has been cancel and we call them back early part of April to reschedule the appointment. TERA/NELSON documented in this encounter Plan of Treatment Upcoming Encounters Date Type Department Care Team (Late st Contact Info) Description 01/09/2025 2:00 PM CDT Office Visit [facility] [address] [facility], [place] [address] Thalia Dunlap MD [address] [facility] [address] [place] [address] 01/09/2025 2:30 PM CDT Office Visit [facility]5 [facility], [place] [address] Matias Lewis III, MD [facility]5 [facility] 2L [place] [address] 02/25/2025 2:30 PM CDT Office Visit [facility] - Rheumatology [address] [place] [address], [place] [address] Lonnie Tai MD [address] [facility]?? [place], [place] [phone] documented as of this encounter Visit Diagnoses Not on filedocumented in this encounter Care Teams Student Development Dean Relationship Specialty Start Date End Date Tanya Jane MD [address] [place] [address] PCP - General 01/05/18 07/09/24 documented as of this encounter
--- OUTSIDE RECORDS SUMMARY | 2024-11-09 23:14 | XMS_ITS | Encounter Summary ---
Author Organization [facility] Address [address] [facility] [place] [address] Care Team Providers Care Dials Inspector Name Role Phone Tanya Jane MD Primary Care Provider [phone] Reason for Visit * Reason Onset Date Comments Refill Request 07/26/2023 Enbrel Encounter Details Date Type Department Care Team (Late st Contact Info) Description 07/26/2023 Refill [facility] - Centralized Scheduling [address] [place] [address] Lonnie Tai MD [address] [place] [address] Refill Request (Enbrel) Social History Tobacco Use Types [...] Telephone Encounter - Treasure Salas RN - 07/26/2023 8:29 AM CDT Repending to [facility] Specialty. Refill Request Kianna Hill TREVON: 05/16/23Aug due: NOV scheduled: 08/01/2023 LRF: 07/24/23 (pharmacy did not receive) Qty Disp: 4 # of refills: 5 Allergies: Allergies Allergen Reactions ??? Codeine Nausea and/or Vomiting Pended Medication Order: Requested Prescriptions Pending Prescriptions Disp Refills ??? etanercept (Enbrel) 50 MG/ML auto-injector pen 4 mL 5 Sig: Inject 50 (fifty) mg subcutaneously every 7 days * Telephone Encounter - Sergey Jay - 07/26/2023 8:21 AM CDT Patient called in requesting a Med refill. Drug type:[facility] Pharmacy:[id number] [address] [facility] [address] [id number] [address] [facility] [address] [facility] 159 Patient call back number: [phone]. I know this has been attempted to be refilled multiple times, but the Pt called again today to try to get the refill of her Enbrel and says that [facility] still does not have it. documented in this encounter Plan of Treatment Upcoming Encounters Date Type Department Care Team (Late st Contact Info) Description 01/09/2025 2:00 PM CDT [facility] [address], [place] [address] Thalia Dunlap MD [address] [place] [address] [address] [place] [phone] 01/09/2025 2:30 PM CDT Office Visit [facility] - [address] [phone] Matias Lewis III, MD [address] [place] [address] [address] [address] 02/25/2025 2:30 PM CDT Office Visit [facility] - Rheumatology [facility]5 [facility], [place] [address] Lonnie Tai MD [address] [facility] [place] [address] documented as of this encounter Visit Diagnoses Diagnosis 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 erosive rheumatoid arthritis (HCC) documented in this encounter Care Teams Dials Inspector Relationship Specialty Start Date End Date Tanya Jane MD [address] [place] [address] [place] [address] PCP - General 01/05/18 07/09/24 documented as of this encounter
--- OUTSIDE RECORDS SUMMARY | 2024-11-09 23:14 | XMS_ITS | Encounter Summary ---
Author Organization [facility] Address [address] [facility] [address] [facility] [place] [address] Care Team Providers Care Head Insulation Board Saw Operator Name Role Phone Tanya Jane MD Primary Care Provider [phone] Reason for Visit * Reason Comments Follow-up FOLLOW UP- RA; SANDHYA Encounter Details Date Type Department Care Team (Latest Contact Info) Description 12/20/2022 11:30 AM OPERATING SYSTEMS SPECIALIST Office Visit [facility] Rheumatology [address] [place] [phone] Kervin Oates MD [address] [place] [address] [place] [phone] 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 erosive rheumatoid arthritis (HCC) (Primary Dx); Long-term use of immunosuppressant medication; Fatty liver; Immunosuppression due to 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 (HCC) Social History Tobacco Use Types Packs/Day [...] Sign Reading Time Taken Comments Blood Pressure 124/64 12/20/2022 11:43 AM OPERATING SYSTEMS SPECIALIST Pulse 88 12/20/2022 11:43 AM OPERATING SYSTEMS SPECIALIST Temperature 36.4 ??C (97.5 ??F) 12/20/2022 11:[address] Respiratory Rate - - Oxygen Saturation 99% 12/20/2022 11:43 AM OPERATING SYSTEMS SPECIALIST Inhaled Oxygen Concentration - - Weight 72.8 kg (160 lb 6.4 oz) 12/20/2022 11:43 AM OPERATING SYSTEMS SPECIALIST Height 168.9 cm (5' 6.5 ) 12/20/2022 11:43 AM CS T Body Mass Index 25.5 12/20/2022 11:43 AM OPERATING SYSTEMS SPECIALIST documented in this encounter Patient Instructions * Patient Instructions* Kervin Oates MD - 12/20/2022 12:13 PM OPERATING SYSTEMS SPECIALIST Please get labs and x-rays today or at your earliest convenience. The following changes were made to your medications: None Please make a follow up appointment for 6 months. To cancel, schedule, or reschedule an appointment, call [phone] or [phone], option 1. If you have a non-urgent medical question for Dr. Oates, please send a message in [employer] to [facility] or call [phone], option 3. If you need a refill on your medication, please call your pharmacy first to have them send us a refill request. If you choose to get labs or imaging at an outside facility, it is your (as the patient) responsibility to have these results sent to us. Our fax number is [phone]. If you have an emergency after hours, you can reach the electrical installation inspector fellow by calling the color control operator [phone], but please also seek out appropriate care at Urgent Care or Emergency Room. ATING SYSTEMS SPECIALIST documented in this encounter Progress Notes * Kervin Oates MD - 12/20/2022 11:14 AM CST Rheumatology Clinic Follow Up Visit [facility] Division of Adult and Pediatric Rheumatology Patient: Kianna Hill ( , 1950, 72 year old female) PCP: Tanya Jane MD Encounter Date: 12/20/2022 CC: f/u RA History of Present Illness: Last seen 09/20/22. Continued on Enbrel without side effect or issue obtaining medication in the interim. Takes meloxicam 15 mg PO QD. Denies dyspepsia or LE edema. URI. 4 weeks ago. Headache. Non productive cough. Lasted 4-5 days. No fever. Sick contact included neighbor with COVID-19. Patient did not seek testing. Denies pain or stiffness. No joint swelling. Unchanged nodules over arms. Review of Systems: Other systems reviewed and negative or noncontributory except as stated in the HPI. Current Outpatient Medications: ??? amLODIPine (NORVASC) 5 MG tablet, Take 5 mg by mouth once daily, Disp: , Rfl: ??? aspirin EC (Ecotrin) 81 MG tablet, Take 1 (one) tablet by mouth every 24 hours, Disp: , Rfl: ??? etanercept (Enbrel) 50 MG/ML auto-injector pen, Inject 50 (fifty) mg subcutaneously every 7 days, Disp: 4 mL, Rfl: 0 ??? fenofibrate (LOFIBRA) 160 MG tablet, Take 160 mg by mouth., Disp: , Rfl: ??? GLIPIZIDE XL 10 MG tablet, Take 10 mg by mouth 2 times daily, Disp: , Rfl: 3 ??? hydroCHLOROthiazide (HYDRODIURIL) 25 MG tablet, Take 1 tablet by mouth once daily, Disp: , Rfl: ??? isosorbide mononitrate CR [...] daily as needed, Disp: 90 tablet, Rfl: 0 ??? metFORMIN (GLUCOPHAGE) 1000 MG tablet, Take 1 tablet by mouth BID., Disp: , Rfl: 2 ??? Mounjaro 5 MG/0.5ML injection, Inject 5 (five) mg subcutaneously every 7 days, Disp: , Rfl: ??? nitroGLYCERIN (NITROSTAT) 0.4 MG tablet, Dissolve 1 tablet under the tongue as directed, Disp: , Rfl: ??? omeprazole (PRILOSEC) 40 MG capsule, Take 40 mg by mouth daily before breakfast , Disp: , Rfl: ??? ONETOUCH VERIO test strip, Use 1 strip as directed , Disp: , Rfl: 4 ??? potassium chloride ER (KLOR-CON) 20 MEQ tablet, Take 20 mEq by mouth 2 times daily , Disp: , Rfl: ??? simvastatin (ZOCOR) 20 MG tablet, Take 20 mg by mouth., Disp: , Rfl: ??? vitamin D, ergocalciferol, (Drisdol) 1.25 MG (42204 UT) capsule, Take 1 (one) capsule by mouth every 7 days, Disp: , Rfl: Allergies Allergen Reactions ??? Codeine Nausea and/or Vomiting Past Medical History: Diagnosis Date ??? Hypertension ??? Rheumatoid arthritis (CMS/HCC) ??? Type 2 diabetes mellitus (CMS/HCC) Past Surgical History: Procedure Laterality Date ??? Hernia Repair ??? HX APPENDECTOMY ??? Ovarian Cyst Removal ??? IN REPAIR OF NASAL SEPTUM 1970 to help breathing but unsure if really ever need ??? Tonsillectomy Social History Socioeconomic History ??? Marital status: Tobacco Use ??? Smoking status: Former ??? Smokeless tobacco: Never Vaping Use ??? Vaping Use: Never used Substance and Sexual Activity ??? Alcohol use: Yes Alcohol/week: 1.0 standard drink Comment: occaisionally ??? Drug use: Yes Types: Marijuana No family history on file. Physical Exam: BP 124/64 (BP SITE: RIGHT ARM, BP POSITION: SITTING, BP CUFF SIZE: 11) Pulse 88 Temp 97.5 ??F (36.4 ??C) (Skin) Ht 1.689 m (5' 6.5 ) Wt 72.8 kg (160 lb 6.4 oz) SpO2 99% BMI 25.50 kg/m?? General: Alert. Oriented. NAD. HEENT: Normal cornea/conjunctivae. EOMI. MMM. No mucosal ulcerations. Normal external ear. Cardiac: Normal rate, regular rhythm. Chest/Lungs: Clear to auscultation bilaterally. No adventitious sounds. Good air movement. Normal respiratory rate and effort. Abdomen: Normal BS. Soft. Non-distended. Non-tender to palpation. MSK: Gait: Normal Neck/Back: No point tenderness or step off. Normal ROM. Upper Extremity: Right 3rd PIP fixed in flexion. Left wrist fullness. No warmth or tenderness. Otherwise normal ROM. x1 rubbery mobile nodule over right elbow, x3 firm less mobile nodules over left elbow and proximal forearm. Lower Extremity: Normal appearance. No swelling, warmth, or tenderness. Normal ROM. Vascular/lymphatic: DP and PT arterial pulses 2+ and regular. Normal capillary refill. No edema. Noappreciable LAD. Integumentary: Normal texture and turgor. No appreciable rashes or lesions. Hair is normal texture and in normal distribution. Neurologic: Strength is uniform and 5/5 throughout. No appreciable sensory deficit. Labs: Reviewed, including those as noted below Recent Labs Component Name 12/15/22 1435 09/22/22 [...] 14 29 38* 38* 49* 36* Imaging: n/a Other Studies: PROCEDURE: XR FOREARM LEFT 2VW, XR FOOT RIGHT 3VW OR MORE, XR FOOT LEFT 3VW OR MORE, XR WRIST RIGHT 3VW OR MORE, XR WRIST LEFT 3VW OR MORE, XR HAND RIGHT 3VW OR MORE, XR HAND LEFT 3VW OR MORE, DATE/TIME OF EXAM: 12/15/2022 2:23 PM, LOCATION [facility] ?? INDICATION: M05.9: Rheumatoid arthritis with positive rheumatoid factor, involving unspecified site (CMS/HCC) ?? ADDITIONAL CLINICAL INFORMATION: Ordering Provider Reason For Exam: Technologist Note: Additional: ?? COMPARISON: Right and left hand radiographs dated 04/17/2019 . ? FINDINGS: ?? Right hand: ?? No acute [...] Terrance Madrigal MD on 12/15/2022 2:59 PM Assessment/Plan: 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 erosive rheumatoid arthritis Onset 2013. RF 173. CCP > 250. Erosions+. Stable nodules, although left sided findings are atypical. Elevated ALT on leflunomide. Intolerant of Humira. Remains on Enbrel monotherapy. Clinically well controlled. ~4 years between hand x-rays, will consider repeating at follow up to monitor for progression and consideration of changing medications. Patient in agreement. - continue Enbrel 50 mg SC Q7D Immunosuppression due to 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 - Latent infection screen: HBsAb (-) HBsAg (-) HBcAb (-) HCV Ab (-) 2/23/23 TB quant (-) 09/22/22 - Immunizations per PCP: for all patients on immunosuppressive therapy we recommend annual influenza vaccine, COVID19 vaccine, Prevnar, Pneumovax, Shingrix. - Patient advised to contact clinic in case of any infections or antibiotic use. Immunization History Administered Date(s) Administered ??? Covid Moderna primary monovalent 12+ yr 0.5mL 01/01/2021, 01/29/2021 ??? FLU VACCINE IIV INC ANTIG PF IM 08/11/2017, 07/04/2018, 10/01/2019, 07/21/2020, 07/01/2021, 08/04/2022 ??? INFLUENZA 2016, 07/21/2020, 07/01/2021 ??? PNEUMOCOCCAL PPSV23 08/24/2017 ??? Pneumococcal Pcv13 Conj 12/02/[address] Merchant ?? Kervin Oates MD Adult and Pediatric Rheumatology Fellow ATING SYSTEMS SPECIALIST Associated attestation - Gerald Merchant MD - 12/27/2022 3:36 PM OPERATING SYSTEMS SPECIALIST Rheumatology Attending Attestation: Date of Service: 12/20/22 I have seen and examined the patient with the fellow and I agree with the findings and plan of careas documented by the fellow. Encounter Diagnoses: 1. 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 erosive rheumatoid arthritis (CMS/HCC) 2. Long-term use of immunosuppressant medication 3. Fatty liver 4. 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 Right 3rd PIP fixed flexion deformity(chronic). no overt synovitis on exam, some chronic synovial changes at MCPs. not classic rheumatoid nodule on palpation. Status: Low disease Activity. Plan: continue Enbrel. Additional contributions to medical decision making for today's encounter: - The patient is on 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 requiring intensive monitoring for toxicity. - I reviewed the patient's chart including review of clinical notes, laboratory results, and imaging results dating back to 09/13 - I educated the patient regarding risks and benefits of the management plan, their medical problems, and contingency plans for worsening symptoms. Gerald Merchant MD Division of Rheumatology Department of Internal Medicine [facility] Encounter Orders and Future Appointments: No orders of the defined types were placed in this encounter. Future Appointments Date Time Provider Department Center 06/20/2023 11:00 AM Kervin Oates MD [id number] AFF [facility] 12/14/2023 12:30 PM [facility] PROC ROOM [id number] [facility] 12/14/2023 1:00 PM Thalia Dunlap MD [id number] documented in this encounter Plan of Treatment Upcoming Encounters Date Type Department Care Team (Late st Contact Info) Description 01/09/2025 2:00 PM CDT Office Visit [facility] [address] [place] [address], [place] [phone] Thalia Dunlap MD [address] [place] [address] [address] [place] [phone] 01/09/2025 2:30 PM CDT Office Visit [facility] [address] [place] [address], [place] [phone] Matias Lewis III, MD [address] [place] [address] [address] [phone] 02/25/2025 2:30 PM CDT Office Visit [facility] Rhe[facility]ology [address] [place] [address], [place] [phone] Lonnie Tai MD [address] [facility] [place] [address] documented as of this encounter Visit Diagnoses Diagnosis 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 erosive rheumatoid arthritis (HCC)- Primary Long-term use of immunosuppressant medication Encounter for long-term (current) use of other medications Fatty liver Other chronic nonalcoholic liver disease Immunosuppression due to 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 (HCC) documented in this encounter Care Teams Head Insulation Board Saw Operator Relationship Specialty Start Date End Date Tanya Jane MD [address] [place] [phone] PCP - General 01/05/18 07/09/24 documented as of this encounter
--- OUTSIDE RECORDS SUMMARY | 2024-11-09 23:14 | XMS_ITS | Encounter Summary ---
Author Organization [facility] Address [address] [facility] [facility] [place] [address] Care Team Providers Care Special Projects Manager Name Role Phone Eliana Mcneal Primary Care Provider [phone] Encounter Details Date Type Department Care Team ([facility] Contact Info) Description 08/23/2024 Orders Only [facility] Rheumatology [address] [place] [address], [place] [phone] Dennis Davidson MD [address] [place] [address] [place] [phone] Social History Tobacco Use Types Packs/Day Years [...] Upcoming Encounters Date Type Department Care Team ([facility] Contact Info) Description 01/09/2025 2:00 PM CDT Office Visit [facility] [address] [place] [address], [place] [phone] Thalia Dunlap MD [address] [place] [address] [address] [place] [address] 1 [place] [phone] 01/09/2025 2:30 PM CDT Office Visit [facility] [address] [place] [phone] Matias Lewis III, MD [address] [facility] 2L [place] [phone] 02/25/2025 2:30 PM CDT Office Visit [facility] Rheumatology [address] [facility], [place] [phone] Lonnie Tai MD [address] [facility] [place] [address] documented as of this encounter Visit Diagnoses Not on filedocumented in this encounter Care Teams Special Projects Manager Relationship Specialty Start Date End Date Eliana Mcneal [address] [place] [phone] PCP - General 07/10/24 documented as of this encounter
--- OUTSIDE RECORDS SUMMARY | 2024-11-09 23:14 | XMS_ITS | Encounter Summary ---
Author Organization [facility] Address [address] [place] [address] Care Team Providers Care Ground Crewman Name Role Phone Eliana Mcneal Primary Care Provider [phone] Encounter Details Date Type Department Care Team (Latest Contact Info) Description 07/10/2024 2:00 PM CDT Procedure visit [facility] [address] [facility], [place] [phone] Thalia Dunlap MD [address] [facility] [address] [place] [address] 1 [place] [phone] Metabolic dysfunction-associat ed steatotic liver disease (MASLD) ; NAFLD (nonalcoholic fatty liver disease) Social History [...] Progress Notes * Thalia Dunlap MD - 07/10/2024 2:52 PM CDT Fibroscan interpretation: I have personally reviewed the Fibroscan report and associated tracings with Dr Montoya (Fellow) + RN. The calculated Liver Stiffness Measurement (LSM, kPa) indicates that: The probability of advanced liver fibrosis is: LOW to MODERATE. The loss of ultrasound signal, (controlled attenuation parameter, CAP [dB/m]), indicates that the probability of hepatic steatosis is: SUBSTANTIAL / HIGH. (Elastograms acceptable) THALIA DUNLAP MD PhD painter set Director, Division of Gastroenterology and Hepatology Co-Director, [facility] Teaching physician attestation and verification: I attest [...] patients with nonalcoholic fatty liver disease. Gastroenterology 2019;156:1966-0434. Mallorie MS, Luba R, Van Natta ML, et al. Vibration-controlled transient elastography to [...] improved by also calculating the FIB4 score (Twanyduke et al. Hepatology Communications 2019;3:0202-9730) or NAFLD Fibrosis score (Leavitt et al. Clinical Gastroenterology and Hepatology 2019;17:3718-4629. from routine clinical data. 3. Liver stiffness [...] change as additional supporting data becomes available. [email or web address] documented in this encounter Procedure Notes * Rubi Phan RN - 07/10/2024 2:37 PM CDTAssociated Order(s): PROC FIBROSCAN Procedure(s): AR LIVER ELASTOGRAPHY Pre-Procedure Diagnose(s): NAFLD (nonalcoholic fatty liver disease) Diagnosis: NAFLD (nonalcoholic fatty liver disease) RN verified patient NPO for prior 3 hours. Procedure explained. Date of Exam: 07/10/2024 Liver Stiffness: (LSM, kPa) median: 7.9 IQR/Median% (ideally < 30%): 6% CAP (controlled attenuation parameter): 300 Technical Difficulty: None Ordering Provider: Thalia Dunlap MD Phone Fax documented in this encounter Plan of Treatment Upcoming Encounters Date Type Department Care Team (Late st Contact Info) Description 01/09/2025 2:00 PM CDT Office Visit [facility] [address] [facility], [place] [phone] Thalia Dunlap MD [facility] [address]RD [place] [address] [place] [phone] 01/09/2025 2:30 PM CDT Office Visit [facility] [address] [facility], [place] [phone] Matias Lewis III, MD [address] [facility] 2L [place] [phone] 02/25/2025 2:30 PM CDT Office Visit [facility] Rheumatology [address] [facility], [place] [phone] Lonnie Tai MD [address] [facility] [place], [place] [phone] documented as of this encounter Procedures Procedure Name Priority Date/Time Associated Diagnosis Comments AR LIVER ELASTOGRAPHY Routine 07/10/2024 2:37 PM CDT NAFLD (nonalcoholic fatty liver disease) documented in this encounter Results * AR LIVER ELASTOGRAPHY (07/10/2024 2:37 PM CDT) Narrative Rubi Phan, RN - 07/10/2024 2:37 PM CDT Rubi [...] disease documented in this encounter Care Teams Ground Crewman Relationship Specialty Start Date End Date Eliana Mcneal [address] [place] [address] PCP - General 07/10/24 documented as of this encounter
--- OUTSIDE RECORDS SUMMARY | 2024-11-09 23:14 | XMS_ITS | Encounter Summary ---
Author Organization [facility] Address [address] [place] [address] Care Team Providers Care Refueler Name Role Phone Tanya Jane MD Primary Care Provider [phone] Reason for Visit * Reason Onset Date Comments MEDICATION REFILL 12/19/2022 Meloxicam 7.5 mg Encounter Details Date Type Department Care Team (Late st Contact Info) Description 12/19/2022 Refill [facility] [address] [place] [address], [facility] [place] [address] Kervin Oates MD [address] [place] [address] [place] [address] MEDICATION REFILL (Meloxicam 7.5 mg) Social History Tobacco Use Types Packs/Day Years [...] Telephone Encounter - Treasure Salas RN - 12/19/2022 12:58 PM CST Refill Request Kianna Hill TREVON: 09/20/22 NOV due: NOV scheduled: 12/20/2022 LRF: 08/26/22 Qty Disp: 90 # of refills: 1 Labs: 09/22/22 Allergies: Allergies Allergen Reactions ??? Codeine Nausea and/or Vomiting Pended Medication Order: Requested Prescriptions Pending Prescriptions Disp Refills ??? meloxicam (Mobic) 7.5 MG tablet 90 tablet 1 Sig: Take 1 (one) tablet by mouth once daily as needed E FILLER documented in this encounter Plan of Treatment Upcoming Encounters Date Type Department Care Team (Late st Contact Info) Description 01/09/2025 2:00 PM CDT Office Visit [facility] [address] [place] [address], [place] [phone] Thalia Dunlap MD [address] [place] [address] [address] [place] [address] [place] [phone] 01/09/2025 2:30 PM CDT Office Visit [facility] [address] [place] [address], [place] [phone] Matias Lewis III, MD [address] [place] [address] 2[address] [place] [phone] 02/25/2025 2:30 PM CDT Office Visit [facility] - Rheumatology [address] [place] [address], [place] [address] Lonnie Tai MD [address] [facility] [place] [address] documented as of this encounter Visit Diagnoses Diagnosis 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 erosive rheumatoid arthritis (HCC)- Primary documented in this encounter Care Teams Refueler Relationship Specialty Start Date End Date Tanya Jane MD [address] [place] [phone] PCP - General 01/05/18 07/09/24 documented as of this encounter
--- OUTSIDE RECORDS SUMMARY | 2024-11-09 23:14 | XMS_ITS | Encounter Summary ---
Author Organization [facility] Address [address] [facility] [place] [address] Care Team Providers Care Client Administrator Name Role Phone Tanya Jane MD Primary Care Provider [phone] Reason for Visit * Reason Onset Date Comments MEDICATION REFILL 08/02/2023 Encounter Details Date Type Department Care Team (Late st Contact Info) Description 08/02/2023 Refill [facility] [address] [facility], [place] [phone] Lonnie Tai MD [address] [facility] [place] [address] MEDICATION REFILL Social History Tobacco Use Types [...] Telephone Encounter - Treasure Salas RN - 08/02/2023 8:07 AM CDT Pt requesting HCQ and Diclofenac to be sent to [facility] in [place]. Refill Request Kianna Hill TREVON: 08/01/23Aug due: NOV scheduled: 11/14/2023 LRF: 08/01/23 - different pharmacy Qty Disp: 180, 270 # of refills: 3, 3 Allergies: Allergies Allergen Reactions ??? Codeine Nausea and/or Vomiting Pended Medication Order: Requested Prescriptions Pending Prescriptions Disp Refills ??? diclofenac sodium EC (Voltaren) 75 MG tablet 180 tablet 3 Sig: Take 1 (one) tablet by mouth 2 times daily ??? hydroxychloroquine (Plaquenil) 200 MG tablet 270 tablet 3 Sig: Take 1.5 (one and one-half) tablets by mouth 2 times daily documented in this encounter Plan of Treatment Upcoming Encounters Date Type Department Care Team (Late st Contact Info) Description 01/09/2025 2:00 PM CDT [facility] [address] [place] [address], [place] [phone] Thalia Dunlap MD [address] [place] [address] [address] [place] [address] [place] [phone] 01/09/2025 2:30 PM CDT Office Visit [facility] [address] [place] [address], [place] [phone] Matias Lewis III, MD [address] [place] [address] 2[address] [place] [address] 02/25/2025 2:30 PM CDT Office Visit [facility] - Rheumatology [address] [place] [address], [place] [phone] Lonnie Tai MD [address] [facility] [place] [address] documented as of this encounter Visit Diagnoses Diagnosis 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 arthritis (HCC) Rheumatoid arthritis Therapeutic drug monitoring Encounter for therapeutic drug monitoring High risk medication use Encounter for long-term (current) use of other medications documented in this encounter Care Teams Client Administrator Relationship Specialty Start Date End Date Tanya Jane MD [address] [place] [address] [place] [phone] PCP - General 3/16/18 9/17/24 documented as of this encounter
--- OUTSIDE RECORDS SUMMARY | 2024-11-09 23:14 | XMS_ITS | Encounter Summary ---
Author Organization [facility] Address [address] [facility] [place] [address] Care Team Providers Care Casting And Pasting Supervisor Name Role Phone Tanya Jane MD Primary Care Provider Encounter Details Date Type Department Care Team (Latest Contact Info) Description 04/21/2023 Travel Social History Tobacco Use Types Packs/Day [...] Description 01/09/2025 2:00 PM CDT [facility] - [address], [place] [phone] Thalia Dunlap MD [address] [place] [address] [address] [place] [address] 01/09/2025 2:30 PM CDT Office Visit [facility] - [address], [place] [phone] Matias Lewis III, MD [address] [place] [address] [address] [place] [address] 02/25/2025 2:30 PM CDT Office Visit [facility] - Rheumatology [address] [facility], [place] [address] Lonnie Tai MD [address] [facility] [place] [address] documented as of this encounter Visit Diagnoses Not on filedocumented in this encounter Care Teams Casting And Pasting Supervisor Relationship Specialty Start Date End Date Tanya Jane MD [address] [place] [address] [place] [phone] PCP - General 01/05/18 07/09/24 documented as of this encounter
--- OUTSIDE RECORDS SUMMARY | 2024-11-09 23:15 | XMS_ITS | Encounter Summary ---
Author Organization [facility] Address [address] [place] [address] Care Team Providers Care Window Glass Installer Name Role Phone Tanya Jane MD Primary Care Provider [phone] Encounter Details Date Type Department Care Team (Latest Contact Info) Description 12/15/2022 2:27 PM COACH BUILDER - 12/15/2022 11:59 PM COACH BUILDER Hospital Encounter [facility] OP DRAW STATION [address] [place] [phone] Gerald Merchant MD [address] [place] [phone] Discharge Disposition: Home or Self Care Social [...] (one) tablet by mouth every 24 hours fenofibrate (LOFIBRA) 160 MG tablet Take 1 (one) tablet by mouth 07/23/2016 GLIPIZIDE XL 10 MG tablet Take 1 (one) tablet by mouth 2 times daily 3 06/05/2018 hydroCHLOROthiazide (HYDRODIURIL) 25 MG tablet Take 1 (one) tablet by mouth once daily 10/01/2019 isosorbide mononitrate CR 24hr (IMDUR) 30 MG tablet Take 1 (one) tablet by mouth once daily 07/14/2021 JANUVIA 100 MG tablet Take 1 (one) tablet by mouth once daily 07/05/2021 levothyroxine (SYNTHROID) 75 MCG tablet Take 1 [...] Take 1 (one) tablet by mouth 07/23/2016 vitamin D, ergocalciferol, (Drisdol) 1.25 MG (49431 UT) capsule Take 1 (one) capsule by mouth every 7 days 10/06/2022 etanercept (Enbrel) 50 MG/ML auto-injector penIndications:Serop ositive erosive rheumatoid arthritis (HCC) Inject 50 (fifty) mg subcutaneously every 7 days 4 mL 12/15/2022 01/11/2023 meloxicam (Mobic) 7.5 MG tabletIndications:Rh eumatoid arthritis with positive rheumatoid factor, involving unspecified site (HCC) Take 1 (one) tablet by mouth once daily as needed 90 tablet 08/26/2022 05/16/2023 nitroGLYCERIN (NITROSTAT) 0.4 MG tablet Dissolve 1 (one) tablet under the tongue as directed 07/05/2021 11/14/2023 documented as of this encounter Plan of Treatment Upcoming Encounters Date Type Department Care Team (Late st Contact Info) Description 01/09/2025 2:00 PM CDT Office Visit [facility] [address] [facility] [place] [place] [phone] Thalia Dunlap MD [address] [place] [phone] 01/09/2025 2:30 PM CDT Office Visit [facility] - [facility] [address] [place] [address], [place] [phone] Matias Lewis III, MD [facility] [place] [phone] 02/25/2025 2:30 PM CDT Office Visit [facility] - Rheumatology [address] [place] [address], [place] [address] Lonine Tai MD [address] [place], [place] [phone] documented as of this encounter Procedures Procedure Name Priority Date/Time Associated Diagnosis Comments INTERPRETATION REFLEXED Routine 12/15/19 2:35 PM COACH BUILDER Elevated LFTs HEPATITIS C ANTIBODY W RFLX PCR Routine 12/15/2022 2:35 PM COACH BUILDER Elevated LFTs SMOOTH MUSCLE ANTIBODY W REFLEX TITER Routine 12/15/2022 2:35 PM COACH BUILDER Elevated LFTs MITOCHONDRIAL ANTIBODY SCREEN Routine 12/15/2022 2:35 PM COACH BUILDER Elevated LFTs TSH REFLEX FREE T4 Routine 12/15/2022 2: 35 PM COACH BUILDER Elevated LFTs TISSUE TRANSGLUTAMINASE AB IGA Routine 12/15/2022 2:35 PM COACH BUILDER Elevated LFTs NAN BLOOD SCREEN W/REFLEX TITER Routine 12/15/2022 2:35 PM COACH BUILDER Elevated LFTs HEMOGLOBIN A1C Routine 12/15/2022 2:35 PM COACH BUILDER Elevated LFTs [id number] BLOOD Routine 12/15/2022 2:35 PM COACH BUILDER Elevated LFTs CBC W/O DIFFERENTIAL Routine 12/15/2022 2:35 PM COACH BUILDER Elevated LFTs COMPREHENSIVE METABOLIC PANEL Routine 12/15/2022 2:35 PM COACH BUILDER Elevated LFTs HEPATITIS B SURFACE ANTIBODY Routine 12/15/2022 2:35 PM COACH BUILDER Elevated LFTs HEPATITIS B SURFACE ANTIGEN W RFLX CONFIRMATION Routine 12/15/2022 2:35 PM COACH BUILDER Elevated LFTs IRON + TRANSFERRIN PANEL Routine 023 2:35 PM COACH BUILDER Elevated LFTs IGM BLOOD Routine 12/15/2022 2:35 PM COACH BUILDER Elevated LFTs IGG BLOOD Routine 12/15/2022 2:35 PM COACH BUILDER Elevated LFTs IGA BLOOD Routine 12/15/2022 2:35 PM COACH BUILDER Elevated LFTs HEPATITIS B CORE ANTIBODY IGM Routine 12/15/2022 2:35 PM COACH BUILDER Elevated LFTs FERRITIN Routine 12/15/2022 2:35 PM COACH BUILDER Elevated LFTs LIPID PROFILE Routine 12/15/2022 2:35 PM COACH BUILDER Elevated LFTs documented in this encounter Results * INTERPRETATION REFLEXED (12/15/2022 2:35 PM COACH BUILDER) Interpretation Comment 12/16/2022 11:11 AM COACH BUILDER [facility] ([facility]) Comment: Not infected with HCV unless early or acute infection is suspected (which may be delayed in an immunocompromised individual), or other evidence exists to indicate HCV infection. Blood BLOOD SPECIMEN / Unknown Lab Venipuncture / Unknown 12/15/2022 2:35 PM COACH BUILDER 12/15/2022 2:56 PM COACH BUILDER Narrative [facility] ([facility]) - 12/16/2022 11:11 AM COACH BUILDER Performed at: ??01 - [facility] [address] [place], [place] ??[id number] Drug Abuse Resistance Education Officer: Evaristo Hamilton PhD, Phone: ??[phone] Thaila Dunlap MD LAB - SEROLOGY ORDER BLESSING Performing Organization Address City/[facility]/ZIP Co de Phone Number [facility] ([facility]) [address] [place] [address] * TISSUE TRANSGLUTAMINASE AB IGA (12/15/2022 2:35 PM COACH BUILDER) Tissue Transglutaminase (tTG) Ab, IgA <2 0 - 3 U/mL 12/17/2022 2:11 PM COACH BUILDER [employer] [facility] ([facility]) Comment: INTERPRETIVE INFORMATION: Tissue Transglutaminase (tTG) Antibody, [...] positive predictive value for disease. Performed By: [email or web address] [address] [place] [address] Bankman: Kleber Choudhary MD, PhD Blood BLOOD SPECIMEN / Unknown Lab Venipuncture / Unknown 12/15/2022 2:35 PM COACH BUILDER 12/15/2022 2:56 PM COACH BUILDER Thalia Dunlap MD LAB - SEROLOGY ORDER BLESSING Performing Organization Address City/[facility]/ZIP Co de Phone Number [facility] ([facility]) [address] [place] [address], [facility] * MITOCHONDRIAL ANTIBODY SCREEN (12/15/2022 2:35 PM COACH BUILDER) Pathologist [facility] Mitochondrial M2 Antibody 2.7 0.0 - 24.9 Units 12/17/2022 3:23 PM COACH BUILDER [facility] ([facility]) Comment: REFERENCE INTERVAL: Mitochondrial (M2) Antibody, IgG [...] does not rule out PBC. Performed By: [facility] [address] [place] [address] Bankman: Kleber Choudhary MD, PhD Blood BLOOD SPECIMEN / Unknown Lab Venipuncture / Unknown 12/15/2022 2:35 PM COACH BUILDER 12/15/2022 2:56 PM COACH BUILDER Thalia Dunlap MD LAB - CHEMISTRY ROBERT MAY [facility]) [address] [place] [address], [facility] * (ABNORMAL) LIPID PROFILE (12/15/2022 2:35 PM COACH BUILDER) [facility] Cholesterol Total 94 <200 mg/dL 12/15/2022 3:32 PM [facility] HDL 32(L) >40 mg/dL 12/15/2022 3:32 PM [facility] Comment: ATP III Classification of HDL Cholesterol: ? <40 mg/dL: ??Considered a major risk factor. ? >60 mg/dL: ??Considered a negative risk factor. ? LDL Calculated 39 <100 mg/dL 12/15/2022 3:32 PM [facility] Comment: ATP III Classification of LDL Cholesterol: ?<100 mg/dL: ??Optimal ? 100 - 129 mg/dL: ??Near Optimal/Above Optimal ? 130 - 159 mg/dL: ??Borderline High ? 160 - 189 mg/dL: ??High ?>190 mg/dL: ??Very High ? Triglycerides 117 <150 mg/dL 12/15/2022 3:32 PM [facility] Comment: ATP III Classification of Triglycerides: ?<150 mg/dL: ??Normal ? 150 - 199 mg/dL: ??Borderline High ? 200 - 400 mg/dL: ??High ?>500 mg/dL: ??Very High Blood BLOOD SPECIMEN / Unknown Lab Venipuncture / Unknown 12/15/2022 2:35 PM COACH BUILDER 12/15/2022 2:58 PM COACH BUILDER Thalia Dunlap MD LAB - CHEMISTRY ROBERT MAY Performing Organization Address [facility] Co de Phone Number [facility] [address] [place] [address], [facility] [phone] * (ABNORMAL) IRON + TRANSFERRIN PANEL (12/15/2022 2:35 PM COACH BUILDER) Iron 78 40 - 150 ug/dL 12/15/2022 3:22 PM [facility] Transferrin 389(H) 174 - 382 mg/dL 12/15/2022 3:22 PM [facility] Transferrin Saturation % 16 16 - 50 % 12/15/2022 3:22 PM [facility] TIBC Calculated 486(H) 240 - 450 ug/dL 12/15/2022 3:22 PM [facility] Blood BLOOD SPECIMEN / Unknown Lab Venipuncture / Unknown 12/15/2022 2:35 PM COACH BUILDER 12/15/2022 2:56 PM COACH BUILDER Thalia Dunlap MD LAB - CHEMISTRY ROBERT MAY [facility] [address] [place] [address], [place] [phone] * IGM BLOOD (12/15/2022 2:35 PM COACH BUILDER) IgM 46 37 - 286 mg/dL 12/15/2022 3:22 PM COACH BUILDER [facility] Blood BLOOD SPECIMEN / Unknown Lab Venipuncture / Unknown 12/15/2022 2:35 PM COACH BUILDER 12/15/2022 2:56 PM COACH BUILDER Thalia Dunlap MD LAB - CHEMISTRY ROBERT MAY Performing Organization Address City/[facility]/ZIP Co de Phone Number [facility] [address] [place] [address], [place] [phone] * (ABNORMAL) IGG BLOOD (12/15/2022 2:35 PM COACH BUILDER) IgG 542(L) 767 - 1,590 mg/dL 12/15/2022 3:22 PM COACH BUILDER [facility] Blood BLOOD SPECIMEN / Unknown Lab Venipuncture / Unknown 12/15/2022 2:35 PM COACH BUILDER 12/15/2022 2:56 PM COACH BUILDER Thalia Dunlap MD LAB - CHEMISTRY ROBERT MAY Performing Organization Address City/[facility]/ZIP Co de Phone Number [address] [address], [place] [phone] * IGA BLOOD (12/15/2022 2:35 PM COACH BUILDER) IgA 133 61 - 356 mg/dL 12/15/2022 3:22 PM COACH BUILDER [facility] Blood BLOOD SPECIMEN / Unknown Lab Venipuncture / Unknown 12/15/2022 2:35 PM COACH BUILDER 12/15/2022 2:56 PM COACH BUILDER Thalia Dunlap MD LAB - CHEMISTRY ROBERT MAY [facility] [address] [place] [address], [place] [phone] * HEPATITIS C ANTIBODY W RFLX PCR (12/15/2022 2:35 PM COACH BUILDER) Hepatitis C Antibody Non Reactive Non Reactive 12/16/2022 11:11 AM COACH BUILDER [facility] ([facility]) Blood BLOOD SPECIMEN / Unknown Lab Venipuncture / Unknown 12/15/2022 2:35 PM COACH BUILDER 12/15/2022 2:56 PM COACH BUILDER Narrative [facility] ([facility]) - 12/16/2022 11:11 AM COACH BUILDER Performed at: ??01 - [facility] [address] [place], [place] ??[id number] Drug Abuse Resistance Education Officer: Evaristo Hamilton PhD, Phone: ??[phone] Thalia Dunlap MD LAB - CHEMISTRY ROBERT MAY Performing Organization Address City/[facility]/ZIP Co de Phone Number [facility] [address] [place] [address], [facility] * HEPATITIS B SURFACE ANTIGEN W RFLX CONFIRMATION (12/15/2022 2:35 PM COACH BUILDER) Pathologist [facility] Hepatitis B Virus Surface Antigen Non-reacti ve Non-reacti ve 12/15/2022 3:41 PM COACH BUILDER [facility] Blood BLOOD SPECIMEN / Unknown Lab Venipuncture / Unknown 12/15/2022 2:35 PM COACH BUILDER 12/15/2022 2:56 PM COACH BUILDER Thalia Dunlap MD LAB - CHEMISTRY ROBERT MAY [facility]ORATORY [facility] [address] [place] [address], [facility] [phone] * HEPATITIS B SURFACE ANTIBODY (12/15/2022 2:35 PM COACH BUILDER) Pathologist [facility] Hepatitis B Virus Surface Antibody Non-react comfort Non-react comfort 12/15/2022 3:41 PM COACH BUILDER [facility] Comment: < 8 mIU/mL Hepatitis B surface Antibody (HBsAb). Nonreactive for HBsAb - individual is considered not immune to Hepatitis B Virus infection. Hepatitis B Surface Antibody Quantitative 0.1 <8.0 mIU/mL 12/15/2022 3:41 PM [facility] Comment: Hepatitis B Surface Antibody Numeric Result Interpretation: ? Nonreactive: ?<8.0 mIU/mL ? Indeterminate: ??8.0 - 12.0 mIU/mL ? Reactive: ?>12.0 mIU/mL ? Blood BLOOD SPECIMEN / Unknown Lab Venipuncture / Unknown 12/15/2022 2:35 PM COACH BUILDER 12/15/2022 2:56 PM COACH BUILDER Thalia Dunlap MD LAB - CHEMISTRY ROBERT MAY Performing Organization Address [facility] Co de Phone Number [facility] [address] [place] [address], [place] [phone] * HEPATITIS B CORE ANTIBODY IGM (12/15/2022 2:35 PM COACH BUILDER) Pathologist [facility] Hepatitis B Core Virus Antibody IgM Non-reacti ve Non-reacti ve 12/15/2022 3:41 PM [facility] Blood BLOOD SPECIMEN / Unknown Lab Venipuncture / Unknown 12/15/2022 2:35 PM COACH BUILDER 12/15/2022 2:56 PM COACH BUILDER Thalia Dunlap MD LAB - CHEMISTRY ROBERT MAY Performing Organization Address City/[facility]/ZIP Co de Phone Number [facility] [address] [place] [address], [place] [phone] * (ABNORMAL) HEMOGLOBIN A1C (12/15/2022 2:35 PM COACH BUILDER) Hemoglobin A1c 6.7(H) <=5.6 % 12/16/2022 10:36 AM [facility] Estimated Average Glucose 146 mg/dL 12/16/2022 10:36 AM [facility] Comment: HbA1c Interpretation: Normal : < 5.7% Pre-diabetes: 5.7-6.4% Diabetes: Equal to or greater than 6.5% Test results diagnostic of diabetes should be repeated for confirmation. Treatment target values recommended by ADA and other clinical organizations should be used to evaluate metabolic control in patients. Reference: [place] [employer] Association, Standards of Care in Diabetes -2020 In patients 70 years and older consider HbA1c target range of 7.0-7.5% (Reference: Oz Vizcarra et al. WILLIAMDA. 2012) The Sebia assay for the measurement of HbA1c is a National Glycohemoglobin Standardization Program (NGSP) certified method. Blood BLOOD SPECIMEN / Unknown Lab Venipuncture / Unknown 12/15/2022 2:35 PM COACH BUILDER 12/15/2022 2:58 PM COACH BUILDER Thalia Dunlap MD LAB - CHEMISTRY ROBERT MAY Performing Organization Address City/[facility]/ZIP Co de Phone Number [address] [address], [facility] [phone] * FERRITIN (12/15/2022 2:35 PM COACH BUILDER) Pathologist [facility] Ferritin 29 13 - 204 ng/mL 12/15/2022 3:41 PM COACH BUILDER [facility] Blood BLOOD SPECIMEN / Unknown Lab Venipuncture / Unknown 12/15/2022 2:35 PM COACH BUILDER 12/15/2022 2:56 PM COACH BUILDER Thalia Dunlap MD LAB - CHEMISTRY ROBERT MAY Performing Organization Address City/[facility]/ZIP Co de Phone Number [address] [address], [facility] [phone] * (ABNORMAL) COMPREHENSIVE METABOLIC PANEL (12/15/2022 2:35 PM COACH BUILDER) BUN 8 7 - 26 mg/dL 12/15/2022 3:32 PM COACH BUILDER [facility] Creatinine 1.10(H) 0.56 - 0.96 mg/dL 12/15/2022 3:32 PM COACH BUILDER [facility] Sodium 136 136 - 145 mmol/L 12/15/2022 3:32 PM COACH BUILDER [facility] Potassium 3.5 3.5 - 4.5 mmol/L 12/15/2022 3:32 PM [facility] Chloride 101 98 - 107 mmol/L 12/15/2022 3:32 PM [facility] CO2 25 22 - 29 mmol/L 12/15/2022 3:32 PM [facility] Glucose 137(H) 70 - 115 mg/dL 12/15/2022 3:32 PM [facility] Calcium 10.0 8.4 - 10.2 mg/dL 12/15/2022 3:32 PM [facility] Protein Total 6.8 6.0 - 8.3 g/dL 12/15/2022 3:32 PM [facility] Albumin 4.5 3.4 - 5.0 g/dL 12/15/2022 3:32 PM [facility] Bilirubin Total 0.5 0.2 - 1.2 mg/dL 12/15/2022 3:32 PM [facility] Alkaline Phosphatase 75 40 - 150 U/L 12/15/2022 3:32 PM [facility] ALT 14 5 - 55 U/L 12/15/2022 3:32 PM [facility] AST 14 5 - 34 U/L 12/15/2022 3:32 PM [facility] Anion Gap 14 8 - 18 12/15/2022 3:32 PM [facility] BUN/Creatinine Ratio 7 7 - 23 12/15/2022 3:32 PM [facility] Osmolality Calculated 282 270 - 300 mOsm/kg 12/15/2022 3:32 PM [facility] Albumin/Globulin Ratio 2.0 1.1 - 2.3 12/15/2022 3:32 PM [facility] eGFR by CKD-EPI 54(L) >=90 mL/min/1.7 3 m2 12/15/2022 3:32 PM [facility] Blood BLOOD SPECIMEN / Unknown Lab Venipuncture / Unknown 12/15/2022 2:35 PM COACH BUILDER 12/15/2022 2:58 PM COACH BUILDER Thalia Dunlap MD LAB - CHEMISTRY ROBERT MAY Performing Organization Address City/State/[facility] Co de Phone Number [facility] [address] [place] [phone] [phone] * (ABNORMAL) CBC W/O DIFFERENTIAL (12/15/2022 2:35 PM COACH BUILDER) WBC 9.4 3.5 - 10.5 10? 3 /uL 12/15/2022 3:06 PM [facility] RBC 4.36 3.80 - 5.20 10? 6 /uL 12/15/2022 3:06 PM [facility] Hemoglobin 11.9(L) 12.0 - 15.6 g/dL 12/15/2022 3:06 PM [facility] Hematocrit 35.5 35.0 - 45.0 % 12/15/2022 3:06 PM [facility] MCV 81.4 80.7 - 98.3 fL 12/15/2022 3:06 PM [facility] MCH 27.3 26.7 - 34.0 pg 12/15/2022 3:06 PM [facility] MCHC 33.5 30.8 - 35.9 g/dL 12/15/2022 3:06 PM [facility] RDW-SD 46.5 36.0 - 50.0 fL 12/15/2022 3:06 PM [facility] RDW-CV 15.5(H) 11.2 - 14.8 % 12/15/2022 3:06 PM [facility] Platelet Count 293 150 - 400 10? 3 /uL 12/15/2022 3:06 PM [facility] MPV 10.7 9.4 - 12.9 fL 12/15/2022 3:06 PM [facility] nRBC Absolute 0.00 0 10? 3 /uL 12/15/2022 3:06 PM [facility] nRBC Auto 0.0 0 /100 WBC 12/15/2022 3:06 PM [facility] Blood BLOOD SPECIMEN / Unknown Lab Venipuncture / Unknown 12/15/2022 2:35 PM COACH BUILDER 12/15/2022 2:59 PM COACH BUILDER Thalia Dunlap MD LAB - HEMATOLOGY ORD ERABLES [facility] [address] [place] [address], [facility] [phone] * NAN BLOOD SCREEN W/REFLEX TITER (12/15/2022 2:35 PM COACH BUILDER) Pathologist [facility] NAN IgG None Detected None Detected 12/17/2022 8:50 PM COACH BUILDER [facility] ([facility]) Comment: If suspicion of connective tissue disease is strong and NAN EIA is negative, consider testing for NAN by IFA ([id number]). INTERPRETIVE INFORMATION: Anti-Nuclear Antibodies (NAN), IgG by NEFTALY Antinuclear Antibodies (NAN), IgG by NEFTALY: NAN specimens are screened using enzyme-linked immunosorbent assay (NEFTALY) methodology. All NEFTALY results reported as Detected are further tested by indirect fluorescent assay (IFA) using HEp-2 substrate with an IgG-specific conjugate. The NAN NEFTALY screen is designed to detect antibodies against dsDNA, histones, SS-A (Ro), SS-B (La), Alexander, Alexander/MELANGEUR OPERATOR, Scl-70, Shell-1, centromeric proteins, other antigens extracted from the HEp-2 cell nucleus. NAN NEFTALY assays have been reported to have lower sensitivities than NAN IFA for systemic autoimmune rheumatic diseases (SARD). Negative results do not necessarily rule out SARD. Performed By: [email or web address] [address] [place] [address] Bankman: Kleber Choudhary MD, PhD Blood BLOOD SPECIMEN / Unknown Lab Venipuncture / Unknown 12/15/2022 2:35 PM COACH BUILDER 12/15/2022 2:57 PM COACH BUILDER Thalia Dunlap MD LAB - CHEMISTRY ROBERT MAY [facility]) [address] * OHVVX-5-[id number] BLOOD (12/15/2022 2:35 PM COACH BUILDER) [facility] Qsflt-9-Dhyauj ypsin 95 90 - 200 mg/dL 12/15/2022 3:23 PM COACH BUILDER [facility] Blood BLOOD SPECIMEN / Unknown Lab Venipuncture / Unknown 12/15/2022 2:35 PM COACH BUILDER 12/15/2022 2:56 PM COACH BUILDER Thalia Dunlap MD LAB - CHEMISTRY ROBERT MAY [address] [address], [facility] [phone] * SMOOTH MUSCLE ANTIBODY W REFLEX TITER (12/15/2022 2:35 PM COACH BUILDER) F-Actin Antibody IgG 5 0 - 19 Units 12/17/2022 3:22 PM COACH BUILDER [facility] ([facility]) Comment: If F-Actin (Smooth Muscle) Antibody, IgG [...] suspicion for AIH is strong. Performed By: [email or web address] [address] [place] [address] Bankman: Kleber Choudhary MD, PhD Blood BLOOD SPECIMEN / Unknown Lab Venipuncture / Unknown 12/15/2022 2:35 PM COACH BUILDER 12/15/2022 2:56 PM COACH BUILDER Thalia Dunlap MD LAB - SEROLOGY ORDER BLESSING [facility] ([facility]) [address] [place] [address], [facility] * TSH REFLEX FREE T4 (12/15/2022 2:35 PM COACH BUILDER) TSH 2.486 0.350 - 4.940 uIU/mL 12/15/2022 3:49 PM COACH BUILDER [facility] Blood BLOOD SPECIMEN / Unknown Lab Venipuncture / Unknown 12/15/2022 2:35 PM COACH BUILDER 12/15/2022 2:58 PM COACH BUILDER Thalia Dunlap MD LAB - CHEMISTRY ORDE [place] [id number] [place] [address] documented in this encounter Visit Diagnoses Diagnosis Elevated LFTs- Primary Other abnormal blood chemistry documented in this encounter Care Teams Window Glass Installer Relationship Specialty Start Date End Date Tanya Jane MD [address] [place] [address] PCP - General 01/05/18 07/09/24 documented as of this encounter
--- OUTSIDE RECORDS SUMMARY | 2024-11-09 23:15 | XMS_ITS | Encounter Summary ---
Author Organization [facility] Address [address] [facility] [place] [address] Care Team Providers Care Petroleum Refining Equipment Operator Name Role Phone Tanya Jane MD Primary Care Provider [phone] Reason for Visit * Reason Onset Date Comments MEDICATION REFILL 02/23/2022 Encounter Details Date Type Department Care Team (Late Contact Info) Description 02/23/2022 Refill [facility] [address] [place] [phone] Lisette Choe MD No info available MEDICATION REFILL Social History Tobacco Use Types Packs/Day Years Used Date Smoking Tobacco: Former Smokeless Tobacco: Never Alcohol Use Standard Drinks/Week Comments Yes 1 (1 standard drink = 0.6 oz pur e alcohol) occaisionally Sex and Gender Information Value Date Recorded Sex Assigned at Not on file Gender Identity Not on file Sexual Orientation Not on file documented as of this encounter Miscellaneous Notes * Telephone Encounter - Jo Ann Haile - 02/23/2022 2:52 PM CDT Refill Request Kianna Hill TREVON: 01.05.22Aug scheduled: Visit date not found LRF: 01.05.18 Qty Disp: # of refills: 2 Allergies: Allergies Allergen Reactions ??? Codeine Nausea and/or Vomiting Pended Medication Order: Requested Prescriptions Pending Prescriptions Disp Refills ??? metFORMIN (GLUCOPHAGE) 1000 MG tablet 2 Sig: Take 1 (one) tablet by mouth documented in this encounter Plan of Treatment Upcoming Encounters Date Type Department Care Team (Late Contact Info) Description 01/09/2025 2:00 PM CDT Office Visit [facility] [address] [facility], [place] [address] Thalia Dunlap MD [address] [facility] [address] [place] [phone] 01/09/2025 2:30 PM CDT Office Visit [facility] [address] [facility], [place] [phone] Matias Lewis III, MD [address] [facility] [address] [place] [phone] 02/25/2025 2:30 PM CDT Office Visit [facility] - Rheumatology [address] [facility], [place] [phone] Lonnie Tai MD [address] [facility] [place] [address] documented as of this encounter Visit Diagnoses Not on filedocumented in this encounter Care Teams Petroleum Refining Equipment Operator Relationship Specialty Start Date End Date Tanya Jane MD [address] [place] [address] [place] [address] PCP - General 01/05/18 07/09/24 documented as of this encounter
--- OUTSIDE RECORDS SUMMARY | 2024-11-09 23:15 | XMS_ITS | Encounter Summary ---
Author Organization [facility] Address [address] [facility] [place] [address] Care Team Providers Care Roller Presser Operator Name Role Phone Tanya Jane MD Primary Care Provider [phone] Encounter Details Date Type Department Care Team (Latest Contact Info) Description 05/13/2021 Travel Social History Tobacco Use Types Packs/Day [...] Exposure Response Date Recorded In the last month, have you been in contact with someone who was confirmed or suspected to have Coronavirus / COVID-19? No / Unsure 05/13/2021 7:54 AM CDT documented as of this encounter Plan of Treatment Upcoming Encounters Date Type Department Care Team (Late st Contact Info) Description 01/09/2025 2:00 PM CDT Office Visit [facility] - [address], [place] [address] Thalia Dunlap MD [address] [place] [address] [address] [place] [phone] 01/09/2025 2:30 PM CDT Office Visit [facility] - [address], [place] [phone] Matias Lewis III, MD [address] [place] [address] [address] [place] [phone] 02/25/2025 2:30 PM CDT Office Visit [facility] - Rheumatology [address] [facility], [place] [phone] Lonnie Tai MD [address] [facility] [place] [address] documented as of this encounter Visit Diagnoses Not on filedocumented in this encounter Care Teams Roller Presser Operator Relationship Specialty Start Date End Date Tanya Jane MD [address] [place] [address] [place] [phone] PCP - General 01/05/18 07/09/24 documented as of this encounter
--- OUTSIDE RECORDS SUMMARY | 2024-11-09 23:15 | XMS_ITS | Encounter Summary ---
Author Organization [facility] Address [address] [facility] [place] [address] Care Team Providers Care Medical Lab Specialist Name Role Phone Tanya Jane MD Primary Care Provider [phone] Reason for Referral * Radiology Services (Routine) - Closed Specialty Diagnoses / Procedures Referred By Khoa t Referred To Contact Ultrasound Diagnoses 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 erosive rheumatoid arthritis (HCC) Encounter for therapeutic drug level monitoring Procedures US ABDOMEN LIMITED Gerald Merchant MD [facility] [place] [address] [facility] [address] [place] [address] Referral ID Status Reason Start Date Expiration Date Visits Re quested Visits Authorized [id number] Closed 01/05/2022 01/05/2023 1 1 Encounter Details Date Type Department Care Team ([facility] Contact Info) Description 01/05/2022 3:00 PM CDT Video Visit [facility] Rheumatology [facility] [facility], [place] [address] Lisette Choe MD No info available 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 erosive rheumatoid arthritis (HCC) ; Encounter for therapeutic drug level monitoring; High risk medications (not anticoagulants) long-term use; Elevated liver enzymes Social History Tobacco Use Types Packs/Day Years Used Date Smoking Tobacco: Former Smokeless Tobacco: Never Alcohol Use Standard Drinks/Week Comments Yes 1 (1 standard drink = 0.6 oz pur e alcohol) occaisionally Sex and Gender Information Value Date Recorded Sex Assigned at Not on file Gender Identity Not on file Sexual Orientation Not on file documented as of this encounter Patient Instructions * Patient Instructions* Lisette Choe MD - 01/05/2022 3:01 PM CDT Continue Enbrel Try to stop meloxicam if you are able to in case it is affecting liver enzymes Please get labs done at [facility] Schedule ultrasound of liver Schedule liver doctor visit (hepatology) Follow up in 6-[address] Choe and Dr. Merchant (Monday PM) If you need to change or cancel your Rheumatology appointment - At the [facility] ([facility]) at [address] [facility], call [phone]. If you need a refill request, have your pharmacy fax a request to [phone]. If you need to leave a message for Dr. Choe, you can send her an electronic message via [facility] voicemail at [phone]. Her office FAX number is [phone]. For after hours emergency only, you can call the [facility] straw hat machine operator at [phone] and ask for the Acute Dialysis Registered Nurse concrete spreader to be paged. documented in this encounter Progress Notes * Lisette Choe MD - 01/05/2022 2:51 PM CDT [facility] Rheumatology Followup Tele Visit Patient Verification & Telemedicine Based Consent Today's visit was conducted virtually due to COVID-19 countermeasures. The patient has given verbalconsent to have today's visit conducted by this same means with treatment provided remotely. The patient verbally consents to the billing and collection practices of the provider's medical group. Referring Physician: Provider Unknown No address on file PCP: Tanya Jane MD chief complaint: follow up for RA HPI: 71 year old female with seropositive erosive RA (+RF, +CCP ab), osteopenia, DM, hypothyroidism. Last seen in clinic on 08/04/21. At that time tolerated first Enbrel injection, had some synovitisand given 20d steroid taper. Since then, she reports symptoms are improved with Enbrel. Denies swelling pain or AM stiffness. Noother new symptoms. Denies ETOH use. Not sure LFT elevation investigated. Current meds: Enbrel 50 mg SC Q7D (07/2021 - ) Meloxicam 7.5 mg daily DC'd: LEF 20 mg daily (01/2017 - 11/2020, stopped 11/24 elevated LFTs) Humira 40 mg SC Q14D (11/2020 - 04/2021, stopped drug site reaction) Disease Hx: Diagnosed with seropositive RA around 2013. She has erosive disease. She was initially started on prednisone, then NSAIDs. MTX was discussed but patient had concerns regarding side effects. Started on LEF in 01/2017. ROS: General: -fatigue, -fever, -wt loss/gain, daily functioning not limited HEENT: -dry eyes, -dry mouth, -vision changes, -eye redness, -eye pain, - oral/nasal ulcers CV: -chest pain, -palpitations, - LE edema Resp: -cough, -SOB, -pleuritic pain GI: - dysphagia, - reflux, -abd pain, -constipation, -nausea, -vomiting, - diarrhea, -blood/mucus : -urine changes, -dysuria, -hematuria MSK: +arthralgia, -myalgia, -muscle weakness, -swelling, -erythema, -warmth, +AM stiffness, -back pain, Skin: -rash, -lesions, -ulcers, -hair loss, -Raynaud, -acrocyanosis, -photosensitivity Neuro: -BAPTISTE, -paresthesias Psych: Mood is generally good, -depression/anxiety ROS otherwise negative Past Medical/Surgical History: Past Medical History: Diagnosis Date Hypertension Rheumatoid arthritis Type 2 diabetes mellitus Past Surgical History: Procedure Laterality Date Hernia Repair HX APPENDECTOMY Ovarian Cyst Removal [place] REPAIR OF NASAL SEPTUM 1970 to help breathing but unsure if really ever need Tonsillectomy Social History: Social History Socioeconomic History Marital status: Spouse name: Not on file Number of children: Not on file Years of education: Not on file Highest education level: Not on file Occupational History Not on file Tobacco Use Smoking status: Former Smoker Smokeless tobacco: Never Used Vaping Use Vaping Use: Never used Substance and Sexual Activity Alcohol use: Yes Alcohol/week: 1.0 standard drink Comment: occaisionally Drug use: Yes Types: Marijuana Sexual activity: Not on file Other Topics Concern Not on file Social History Narrative Not on file Social Determinants of Health Financial Resource Strain: Not on file Food Insecurity: Not on file Transportation Needs: Not on file Physical Activity: Not on file Stress: Not on file Social Connections: Not on file Intimate Partner Violence: Not on file Housing Stability: Not on file Family History: family history is not on file. Current Medications: Current Outpatient Medications Medication Sig Dispense Refill amLODIPine (NORVASC) 5 MG tablet Take 5 mg by mouth once daily aspirin EC (ECOTRIN) 81 MG tablet Take 81 mg by mouth once daily ergocalciferol (DRISDOL) 1.25 MG (19693 UT) capsule Take 1 capsule by mouth every 7 days etanercept (ENBREL) 50 MG/ML auto-injector pen Inject 50 (fifty) mg subcutaneously every 7 days 4 mL 5 fenofibrate (LOFIBRA) 160 MG tablet Take 160 mg by mouth. GLIPIZIDE XL 10 MG tablet Take 10 mg by mouth 2 times daily 3 hydroCHLOROthiazide (HYDRODIURIL) 25 MG tablet Take 1 tablet by mouth once daily isosorbide mononitrate CR 24hr (IMDUR) 30 MG tablet Take 1 tablet by mouth once daily JANUVIA 100 MG tablet Take 100 mg by mouth once daily levothyroxine (SYNTHROID) 75 MCG tablet Take 75 mcg by mouth DAILY. losartan (COZAAR) 100 MG tablet Take 100 mg by mouth once daily 4 meloxicam (MOBIC) 7.5 MG tablet Take 1 (one) tablet by mouth once daily as needed 90 tablet 1 metFORMIN (GLUCOPHAGE) 1000 MG tablet Take 1 tablet by mouth BID. 2 nitroGLYCERIN (NITROSTAT) 0.4 MG tablet Dissolve 1 tablet under the tongue as directed omeprazole (PRILOSEC) 40 MG capsule Take 40 mg by mouth daily before breakfast ONETOUCH DELICA PLUS 30G EXTRA FINE LANCETS Use 1 Each once daily ONETOUCH VERIO test strip Use 1 strip as directed 4 potassium chloride ER (KLOR-CON) 20 MEQ tablet Take 20 mEq by mouth 2 times daily simvastatin (ZOCOR) 20 MG tablet Take 20 mg by mouth. No current facility-administered medications for this visit. Allergies: Allergies Allergen Reactions Codeine Nausea and/or Vomiting Physical Exam: There were no vitals taken for this visit. Defered 11/24 televisit Labs: Reviewed, including those as noted below 11/01/21 CMP: Cr 1.12, ALP 162, ALT 38, AST 22 CBC: WNL ESR 2, CRP 3 04/29/21 CMP: Cr 1.1, ALP 180, ALT 49, AST 33 CBC: WNL ESR 2, CRP 3 12/11/20 HBcAb, HBsAg, HBsAb, HCV ab NR 08/15/16 RF 173, CCP >250 NAN negative, Anti SSA/SSB negative HBV, HCV NR Quant TB neg 12/11/20 Diagnostics/health maintenance: BL hand XRR 03/2019 Impression: 1. Right hand: Interval healing of erosions at the ulnar styloid process. No new erosions. Mild osteoarthritis. New fracture of the tuft of the third distal phalanx since 2016. This is age-indeterminate and could be subacute. Please correlate with history and physical examination. 2. Left hand: Osteoarthritis, greatest at the first carpometacarpal joint. No erosions identified. XR BL feet 12/2017 L foot: Mild posterior and slight plantar calcaneal enthesopathy. No fracture, dislocation, periosteal reaction. Small erosions at medial aspect of 1st metatarsal head R foot: Plantar calcaneal enthesopathy. Hallux Valgus and bunion deformity. Osteoarthritic change at first metatarsal-phalangeal joint. No fracture, dislocation, periosteal reaction, or bone destruction DEXA 05/13/21: BONE MINERAL DENSITY (BMD) left femoral neck: Normal; T-score -0.1 10 year risk for: Major osteoporotic - 9.4% Hip Fracture - 0.5% DEXA ([facility]) 02/07/17: L spine BMD 0.977; T-score -0.6 L Femoral neck BMD: 0.864; T-score +0.5 R Femoral neck BMD0.787; T-score -0.6 Assessment & Plan: 1. 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 erosive rheumatoid arthritis 2. Encounter for therapeutic drug level monitoring Kianna Hill is a 71 year old female with seropositive erosive RA (+RF, +CCP ab), osteopenia, DM,hypothyroidism who had tele visit today .Had drug site reaction to Humira even on citrate free version, so switched to Enbrel. Tolerating it and reporting significant improvement in arthritis symptoms. Will hold off on adding any DMARD or switching to different biologic given response. Initially thought LFT elevation 2/2 DMARDs but she has not been on them for over a year and still having lab abnormalities. Will investigate inc LFTs with US, referral to hepatology. Stop meloxicam in case it is related. - Labs as below, [facility] - Continue Enbrel 50 mg SC Q7D - Stop meloxicam 7.5 mg daily 2/2 LFT elevation - RUQ/LIVER ultrasound - Referral to hepatology RTC in 1-2 mo Lisette Choe MD Rheumatology Fellow Patient discussed with Dr. Merchant. Patient location: Home This encounter was performed using: audio Reason for not using video for visit: patient does not have the technology Time spent with patient/proxy: 15 min The following were ordered during this visit: Orders Placed This Encounter US ABDOMEN LIMITED Standing Status: Future Standing Expiration Date: 01/05/2023 Order Specific Question: Release to patient Answer: Immediate Order Specific Question: Exam to be performed? Answer: Per Radiologist protocol HEPATIC FUNCTION PANEL Order Specific Question: Release to patient Answer: Immediate CREATININE BLOOD Order Specific Question: Release to patient Answer: Immediate CBC WITH DIFFERENTIAL Order Specific Question: Release to patient Answer: Immediate QUANTIFERON-TB GOLD PLUS 4-TUBE Order Specific Question: Release to patient Answer: Immediate Ref to Hepatology - [facility] Standing Status: Future Standing Expiration Date: 01/05/2023 Referral Priority: Routine Referral Type: Evaluate & Treat Referral Reason: Specialty Services Required Number of Visits Requested: 1 Associated attestation - Gerald Merchant MD - 01/12/2022 10:03 AM CDT I was present with Dr. Choe during entire telephone visit and agree with her assessment/plan. ICD-10-CM 1. 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 erosive rheumatoid arthritis M05.80 2. Encounter for therapeutic drug level monitoring Z51.81 3. High risk medications (not anticoagulants) long-term use Z79.899 4. Elevated liver enzymes R74.8 documented in this encounter Plan of Treatment Upcoming Encounters Date Type Department Care Team (Late st Contact Info) Description 01/09/2025 2:00 PM CDT Office Visit [facility] [address] [place] [address], [place] [phone] Thalia Dunlap MD [address] [place] [address] [address] [place] [phone] 01/09/2025 2:30 PM CDT Office Visit [facility] [address] [place] [address], [place] [address] Matias Lewis III, MD [address] [place] [address] [address] [place] [address] 02/25/2025 2:30 PM CDT Office Visit [facility] - Rheumatology [address] [place] [address], [place] [address] Lonnie Tai MD [address] [facility] [place], [place] [id number] documented as of this encounter Results * US ABDOMEN LIMITED (01/19/2022 10:45 AM CDT) Anatomical Region Laterality Modality Abdomen Ultrasound 01/19/2022 10:2 1 AM CDT Impressions 01/19/2022 11:20 AM CDT IMPRESSION: 1. Mild hepatic steatosis. No discrete hepatic lesion or intrahepatic biliary dilation. Patent hepatic vasculature. 2. Cholelithiasis. 3. Splenomegaly. Dictated by Ernestina Hanley MD (Resident). I, Dr. NAVEEN WANG have personally reviewed and interpreted this examination/study. This report was electronically signed by NAVEEN WANG ??on 01/19/2022 11:20 AM . Narrative [...] echogenicity. No ascites is present. Procedure Note Naveen Wang MD - 01/19/2022 EXAMINATION: Limited abdominal [...] by Ernestina Hanley MD (Resident). I, Dr. NAVEEN WANG have personally reviewed and interpreted this examination/study. This report was electronically signed by NAVEEN WANG on 01/19/2022 11:20 AM . Gerald Merchant MD ORDERABLES documented in this encounter Visit Diagnoses Diagnosis 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 erosive rheumatoid arthritis (HCC)- Primary Encounter for therapeutic drug level monitoring Encounter for therapeutic drug monitoring High risk medications (not anticoagulants) long-term use Encounter for long-term (current) use of other medications Elevated liver enzymes Nonspecific elevation of levels of transaminase or lactic acid dehydrogenase (LDH) 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 erosive rheumatoid arthritis (HCC) Encounter for therapeutic drug level monitoring Encounter for therapeutic drug monitoring documented in this encounter Care Teams Medical Lab Specialist Relationship Specialty Start Date End Date Tanya Jane MD [address] [place] [address] [place] [phone] PCP - General 01/05/18 07/09/24 documented as of this encounter
--- OUTSIDE RECORDS SUMMARY | 2024-11-09 23:15 | XMS_ITS | Encounter Summary ---
Author Organization [facility] Address [address] [place] [address] Care Team Providers Care Phosphatic Fertilizer Supervisor Name Role Phone Tanya Jane MD Primary Care Provider [phone] Encounter Details Date Type Department Care Team (Late Contact Info) Description 04/02/2021 Orders Only [facility] [address] [place] [phone] Lisette Choe MD No info available 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 erosive rheumatoid arthritis (HCC); Encounter for therapeutic drug monitoring Social History Tobacco Use Types [...] Description 01/09/2025 2:00 PM CDT Office Visit [facility] - [address] [phone] Thalia Dunlap MD [address] [place] [address] [address] [place] [phone] 01/09/2025 2:30 PM CDT Office Visit [facility] - [address] [phone] Matias Lewis III, MD [address] [place] [address] [address] [place] [phone] 02/25/2025 2:30 PM CDT Office Visit [facility] - Rheumatology [address] [facility], [place] [phone] Lonnie Tai MD [address] [facility] [place] [address] documented as of this encounter Procedures Procedure Name Priority Date/Time Associated Diagnosis Comments C-REACTIVE PROTEIN Routine 04/29/2021 8: 09 AM CDT Seropositive erosive rheumatoid arthritis (HCC) Encounter for therapeutic drug monitoring ERYTHROCYTE SEDIMENTATION RATE Routine 04/29/2021 8:09 AM CDT Seropositive erosive rheumatoid arthritis (HCC) Encounter for therapeutic drug monitoring CBC W AUTO DIFFERENTIAL Routine 04/29/2021 8:09 AM CDT Seropositive erosive rheumatoid arthritis (HCC) Encounter for therapeutic drug monitoring COMPREHENSIVE METABOLIC PANEL Routine 04/29/2021 8:09 AM CDT Seropositive erosive rheumatoid arthritis (HCC) Encounter for therapeutic drug monitoring documented in this encounter Results * ERYTHROCYTE SEDIMENTATION RATE (04/29/2021 8:09 AM CDT) Erythrocyte Sedimentation Rate Westergren 2 0 - 40 mm/hr [facility] INSURANCE BILL Comment:FASTING Blood BLOOD SPECIMEN / Unknown 04/29/2021 8:09 AM CDT 04/29/2021 Narrative Resulting Agency Comment Lab Testing performed at: [facility] [address] [facility] ??[facility] [phone] Lisette Choe MD LAB - HEMATOLOGY ORD ERABLES [facility] INSURANCE BILL [address] [place] [address] * C-REACTIVE PROTEIN (04/29/2021 8:09 AM CDT) C-Reactive Protein 3 0 - 10 mg/L [facility] INSURANCE BILL Comment:FASTING Blood BLOOD SPECIMEN / Unknown 04/29/2021 8:09 AM CDT 04/29/2021 Narrative Resulting Agency Comment Lab Testing performed at: [facility] [address] ??[facility] [id number] Lisette Choe MD LAB - CHEMISTRY ROBERT MAY [facility] INSURANCE BILL [address] [place] [address] * (ABNORMAL) COMPREHENSIVE METABOLIC PANEL (04/29/2021 8:09 AM CDT) Glucose 234(H) 65 - 99 mg/dL [facility] INSURANCE BILL BUN 10 8 - 27 mg/dL [facility] INSURANCE BILL Creatinine 1.10(H) 0.57 - 1.00 mg/dL [facility] INSURANCE BILL eGFR by MDRD 52(L) >59 mL/min/1.7 3 [facility] INSURANCE BILL eGFR by MDRD 60 >59 mL/min/1.7 3 [facility] INSURANCE BILL Comment: [facility] currently reports eGFR in compliance with the current ??recommendations of the National Kidney Foundation. [facility] will ??update reporting as new guidelines are published from the NKF-ASN ??Task force. BUN/Creatinine Ratio 9(L) 12 - 28 [facility] INSURANCE BILL Sodium 136 134 - 144 mmol/L [facility] INSURANCE BILL Potassium 4.8 3.5 - 5.2 mmol/L [facility] INSURANCE BILL Chloride 98 96 - 106 mmol/L [facility] INSURANCE BILL CO2 24 20 - 29 mmol/L [facility] INSURANCE BILL Calcium 9.7 8.7 - 10.3 mg/dL [facility] INSURANCE BILL Protein Total 6.3 6.0 - 8.5 g/dL [facility] INSURANCE BILL Albumin 4.4 3.8 - 4.8 g/dL [facility] INSURANCE BILL Globulin Total 1.9 1.5 - 4.5 g/dL [facility] INSURANCE BILL Albumin/Globulin Ratio 2.3(H) 1.2 - 2.2 [facility] INSURANCE BILL Bilirubin Total 0.7 0.0 - 1.2 mg/dL [facility] INSURANCE BILL Alkaline Phosphatase 180(H) 48 - 121 IU/L [facility] INSURANCE BILL AST 33 0 - 40 IU/L [facility] INSURANCE BILL ALT 49(H) 0 - 32 IU/L [facility] INSURANCE BILL Comment:FASTING Blood BLOOD SPECIMEN / Unknown 04/29/2021 8:09 AM CDT 04/29/2021 Narrative Resulting Agency Comment Lab Testing performed at: [facility] ??[facility] [id number] Lisette Choe MD LAB - CHEMISTRY ROBERT MAY [facility] INSURANCE BILL [address] [place] [address] * CBC WITH DIFFERENTIAL (04/29/2021 8:09 AM CDT) WBC 6.8 3.4 - 10.8 x10E3/uL [facility] INSURANCE BILL RBC 3.93 3.77 - 5.28 x10E6/uL [facility] INSURANCE BILL Hemoglobin 12.3 11.1 - 15.9 g/dL [facility] INSURANCE BILL Hematocrit 37.4 34.0 - 46.6 % [facility] INSURANCE BILL MCV 95 79 - 97 fL [facility] INSURANCE BILL MCH 31.3 26.6 - 33.0 pg [facility] INSURANCE BILL MCHC 32.9 31.5 - 35.7 g/dL [facility] INSURANCE BILL RDW 14.3 11.7 - 15.4 % [facility] INSURANCE BILL Platelet Count 237 150 - 450 x10E3/uL [facility] INSURANCE BILL Granulocytes % 62 Not Estab. % [facility] INSURANCE BILL Lymphocytes % 25 Not Estab. % [facility] INSURANCE BILL Monocytes % 8 Not Estab. % [facility] INSURANCE BILL Eosinophils % 3 Not Estab. % [facility] INSURANCE BILL Basophils % 2 Not Estab. % [facility] INSURANCE BILL Immature Cells NOT NEEDED [facility] INSURANCE BILL Comment:Ancillary determined the test is not needed. Granulocytes Absolute 4.2 1.4 - 7.0 x10E3/uL [facility] INSURANCE BILL Lymphocytes Absolute 1.7 0.7 - 3.1 x10E3/uL [facility] INSURANCE BILL Monocytes Absolute 0.5 0.1 - 0.9 x10E3/uL [facility] INSURANCE BILL Eosinophils Absolute 0.2 0.0 - 0.4 x10E3/uL [facility] INSURANCE BILL Basophils Absolute 0.1 0.0 - 0.2 x10E3/uL [facility] INSURANCE BILL Immature Granulocytes 0 Not Estab. % [facility] INSURANCE BILL Immature Granulocytes Absolute 0.0 0.0 - 0.1 x10E3/uL [facility] INSURANCE BILL nRBC NOT NEEDED [facility] INSURANCE BILL Comment:Ancillary determined the test is not needed. Comment Hematology NOT NEEDED [facility] INSURANCE BILL Comment: FASTING Ancillary determined the test is not needed. Blood BLOOD SPECIMEN / Unknown 04/29/2021 8:09 AM CDT 04/29/2021 Narrative Resulting Agency Comment Lab Testing performed at: [facility] ??[facility] [phone] Lisette Choe MD LAB - HEMATOLOGY ORD ERABLES [facility] INSURANCE BILL [address] [place] [address] documented in this encounter Visit Diagnoses Diagnosis Seropositive erosive rheumatoid arthritis (HCC) Encounter for therapeutic drug monitoring documented in this encounter Care Teams Phosphatic Fertilizer Supervisor Relationship Specialty Start Date End Date Tanya Jane MD [address] [place] [address] [place] [address] PCP - General 01/05/18 07/09/24 documented as of this encounter
--- OUTSIDE RECORDS SUMMARY | 2024-11-09 23:15 | XMS_ITS | Encounter Summary ---
Author Organization [facility] Address [address] [place] [address] Care Team Providers Care Zipper Sewing Machine Operator Name Role Phone Tanya Jane MD Primary Care Provider [phone] Reason for Visit * Reason Onset Date Comments MEDICATION REFILL 08/26/2022 Encounter Details Date Type Department Care Team (Late st Contact Info) Description 08/26/2022 Refill [facility] [address] [place] [address], [facility] [place] [phone] Kervin Oates MD [address] [place] [address] [place] [phone] MEDICATION REFILL Social History Tobacco Use Types [...] * Telephone Encounter - Eleanor Gallo - 08/26/2022 10:07 AM CDT Refill Request Kianna Hill TREVON: 01/05/2022 NOV scheduled: 09/20/2022 LRF: 02/28/2022 Qty Disp: 90 # of refills: 1 Allergies: Allergies Allergen Reactions ??? Codeine Nausea and/or Vomiting Pended Medication Order: Requested Prescriptions Pending Prescriptions Disp Refills ??? meloxicam (Mobic) 7.5 MG tablet 90 tablet 1 Sig: Take 1 (one) tablet by mouth once daily as needed documented in this encounter Plan of Treatment Upcoming Encounters Date Type Department Care Team (Late st Contact Info) Description 01/09/2025 2:00 PM CDT Office Visit [facility] [address] [place] [address], [place] [phone] Thalia Dunlap MD [facility] [address] [place] [phone] 01/09/2025 2:30 PM CDT Office Visit [facility] - GI [address] [place] [address], [place] [address] Matias Lewis III, MD [facility] [address] [phone] 02/25/2025 2:30 PM CDT Office Visit [facility] - Rheumatology [address] [place] [address], [place] [phone] Lonnie Tai MD [address] [facility]?? [place] [address] documented as of this encounter Visit Diagnoses Diagnosis Rheumatoid arthritis with positive rheumatoid factor, involving unspecified site (HCC) documented in this encounter Care Teams Zipper Sewing Machine Operator Relationship Specialty Start Date End Date Tanya Jane MD [address] [place] [address] [place] [address] PCP - General 01/05/18 07/09/24 documented as of this encounter
--- OUTSIDE RECORDS SUMMARY | 2024-11-09 23:15 | XMS_ITS | Encounter Summary ---
Author Organization [facility] Address [address] [facility] [place] [address] Care Team Providers Care Assistant Professor Of Music Name Role Phone Tanya Jane MD Primary Care Provider [phone] Reason for Visit * Reason Onset Date Comments MEDICATION REFILL 02/07/2022 Encounter Details Date Type Department Care Team (Late st Contact Info) Description 02/07/2022 Refill [facility] [address] [place] [phone] Lisette Choe MD No info available MEDICATION [...] have Coronavirus / COVID-19? No / Unsure 01/19/2022 9:48 AM CDT documented as of this encounter Miscellaneous Notes * Telephone Encounter - Ayah Reyes RN - 02/07/2022 10:27 AM CDT Refill Request Kianna Hill TREVON: 01/05/2022 NOV scheduled: Visit date not found - new fellow LRF: 08/25/21 Qty Disp: 4 ml # of refills: 5 Labs: 11/01/21 Allergies: Allergies Allergen Reactions ??? Codeine Nausea and/or Vomiting Pended Medication Order: Requested Prescriptions Pending Prescriptions Disp Refills ??? etanercept (ENBREL) 50 MG/ML auto-injector pen 4 mL 5 Sig: Inject 50 (fifty) mg subcutaneously every 7 days documented in this encounter Plan of Treatment Upcoming Encounters Date Type Department Care Team (Late st Contact Info) Description 01/09/2025 2:00 PM CDT Office Visit [facility] [address] [place] [address], [place] [phone] Thalia Dunlap MD [address] [place] [address] [address] [place] [phone] 01/09/2025 2:30 PM CDT Office Visit [facility] - GI [address] [place] [address], [place] [phone] Matias Lewis III, MD [facility] [address] [place] [phone] 02/25/2025 2:30 PM CDT Office Visit [facility] - Rheumatology [address] [place] [address], [place] [address] Lonnie Tai MD [address] [facility] [place] [address] documented as of this encounter Visit Diagnoses Diagnosis Seropositive erosive rheumatoid arthritis (HCC) documented in this encounter Care Teams Assistant Professor Of Music Relationship Specialty Start Date End Date Tanya Jane MD [address] [place] [address] [place] [address] PCP - General 01/05/18 07/09/24 documented as of this encounter
--- OUTSIDE RECORDS SUMMARY | 2024-11-09 23:15 | XMS_ITS | Encounter Summary ---
Author Organization [facility] Address [address] [facility] [place] [address] Care Team Providers Care Janitorial Manager Name Role Phone Tanya Jane MD Primary Care Provider [phone] Encounter Details Date Type Department Care Team (Late Contact Info) Description 06/25/2021 Orders Only [facility] [address] [place] [phone] Lisette Choe MD No info available Seropositive [...] Description 01/09/2025 2:00 PM CDT Office Visit [facility] - [address] [phone] Thalia Dunlap MD [address] [place] [address] [address] [place] [phone] 01/09/2025 2:30 PM CDT Office Visit [facility] - [address] [phone] Matias Lewis III, MD [address] [place] [address] [address] [place] [phone] 02/25/2025 2:30 PM CDT Office Visit [facility] - Rheumatology [address] [facility], [place] [phone] Lonnie Tai MD [address] [facility] [place] [address] documented as of this encounter Procedures Procedure Name Priority Date/Time Associated Diagnosis Comments C-REACTIVE PROTEIN Routine 08/05/2021 8: 32 AM CDT Seropositive erosive rheumatoid arthritis (HCC) Encounter for therapeutic drug monitoring ERYTHROCYTE SEDIMENTATION RATE Routine 08/05/2021 8:32 AM CDT Seropositive erosive rheumatoid arthritis (HCC) Encounter for therapeutic drug monitoring CBC W AUTO DIFFERENTIAL Routine 08/05/2021 8:32 AM CDT Seropositive erosive rheumatoid arthritis (HCC) Encounter for therapeutic drug monitoring COMPREHENSIVE METABOLIC PANEL Routine 08/05/2021 8:32 AM CDT Seropositive erosive rheumatoid arthritis (HCC) Encounter for therapeutic drug monitoring documented in this encounter Results * ERYTHROCYTE SEDIMENTATION RATE (08/05/2021 8:32 AM CDT) Pathologist [facility] Erythrocyte Sedimentation Rate Westergren 2 0 - 40 mm/hr [facility] INSURANCE BILL Comment:FASTING Blood BLOOD SPECIMEN / Unknown 08/05/2021 8:32 AM CDT 08/05/2021 Narrative Resulting Agency Comment [facility] performed [facility]: [facility] [address] [facility] ??[facility] [phone] Lisette Choe MD LAB - HEMATOLOGY ORD ERABLES [facility] INSURANCE BILL [address] [place] [address] * (ABNORMAL) C-REACTIVE PROTEIN (08/05/2021 8:32 AM CDT) Pathologist [facility] C-Reactive Protein 11(H) 0 - 10 mg/L [facility] INSURANCE BILL Comment:FASTING Blood BLOOD SPECIMEN / Unknown 08/05/2021 8:32 AM CDT 08/05/2021 Narrative Resulting Agency Comment [facility]: [facility] [address] [facility] ??[facility] [phone] Lisette Choe MD LAB - CHEMISTRY ROBERT MAY [facility] INSURANCE BILL [address] [place] [address] * (ABNORMAL) COMPREHENSIVE METABOLIC PANEL (08/05/2021 8:32 AM CDT) Glucose 201(H) 65 - 99 mg/dL [facility] INSURANCE BILL BUN 10 8 - 27 mg/dL [facility] INSURANCE BILL Creatinine 1.23(H) 0.57 - 1.00 mg/dL [facility] INSURANCE BILL eGFR by MDRD 45(L) >59 mL/min/1. 73 [facility] INSURANCE BILL eGFR by MDRD 52(L) >59 mL/min/1. 73 [facility] INSURANCE BILL Comment: In accordance with recommendations from the NKF-ASN Task force, ??[facility] is in the process of updating its eGFR calculation to the ??2020 CKD-EPI creatinine equation that estimates kidney function ??without a race variable. BUN/Creatinine Ratio 8(L) 12 - 28 [facility] INSURANCE BILL Sodium 135 134 - 144 mmol/L [facility] INSURANCE BILL Potassium 4.2 3.5 - 5.2 mmol/L [facility] INSURANCE BILL Chloride 97 96 - 106 mmol/L [facility] INSURANCE BILL CO2 22 20 - 29 mmol/L [facility] INSURANCE BILL Calcium 9.6 8.7 - 10.3 mg/dL [facility] INSURANCE BILL Protein Total 6.3 6.0 - 8.5 g/dL [facility] INSURANCE BILL Albumin 4.6 3.8 - 4.8 g/dL [facility] INSURANCE BILL Globulin Total 1.7 1.5 - 4.5 g/dL [facility] INSURANCE BILL Albumin/Globulin Ratio 2.7(H) 1.2 - 2.2 [facility] INSURANCE BILL Bilirubin Total 0.3 0.0 - 1.2 mg/dL [facility] INSURANCE BILL Alkaline Phosphatase 163(H) 44 - 121 IU/L [facility] INSURANCE BILL Comment:Please note refere nce interval change AST 25 0 - 40 IU/L [facility] INSURANCE BILL ALT 38(H) 0 - 32 IU/L [facility] INSURANCE BILL Comment:FASTING Blood BLOOD SPECIMEN / Unknown 08/05/2021 8:32 AM CDT 08/05/2021 Narrative Resulting Agency Comment Lab Testing performed at: [facility] [address] [place] [address] ??[facility] [phone] Lisette Choe MD LAB - CHEMISTRY ROBERT MAY [facility] INSURANCE BILL [address] [place] [address] * CBC WITH DIFFERENTIAL (08/05/2021 8:32 AM CDT) WBC 7.8 3.4 - 10.8 x10E3/uL [facility] INSURANCE BILL RBC 4.14 3.77 - 5.28 x10E6/uL [facility] INSURANCE BILL Hemoglobin 12.2 11.1 - 15.9 g/dL [facility] INSURANCE BILL Hematocrit 36.9 34.0 - 46.6 % [facility] INSURANCE BILL MCV 89 79 - 97 fL [facility] INSURANCE BILL MCH 29.5 26.6 - 33.0 pg [facility] INSURANCE BILL MCHC 33.1 31.5 - 35.7 g/dL [facility] INSURANCE BILL RDW 12.6 11.7 - 15.4 % [facility] INSURANCE BILL Platelet Count 198 150 - 450 x10E3/uL [facility] INSURANCE BILL Granulocytes % 74 Not Estab. % [facility] INSURANCE BILL Lymphocytes % 17 Not Estab. % [facility] INSURANCE BILL Monocytes % 7 Not Estab. % [facility] INSURANCE BILL Eosinophils % 1 Not Estab. % [facility] INSURANCE BILL Basophils % 1 Not Estab. % [facility] INSURANCE BILL Immature Cells NOT NEEDED [facility] INSURANCE BILL Comment:Ancillary determined the test is not needed. Granulocytes Absolute 5.8 1.4 - 7.0 x10E3/uL [facility] INSURANCE BILL Lymphocytes Absolute 1.3 0.7 - 3.1 x10E3/uL [facility] INSURANCE BILL Monocytes Absolute 0.5 0.1 - 0.9 x10E3/uL [facility] INSURANCE BILL Eosinophils Absolute 0.1 0.0 - 0.4 x10E3/uL [facility] INSURANCE BILL [...] not needed. Blood BLOOD SPECIMEN / Unknown 08/05/2021 8:32 AM CDT 08/05/2021 Narrative Resulting Agency Comment Lab Testing performed at: [facility] [address] ??[facility] [id number] Lisette Choe MD LAB - HEMATOLOGY ORD ERABLES [facility] INSURANCE BILL [address] [place] [address] documented in this encounter Visit Diagnoses Diagnosis Seropositive erosive rheumatoid arthritis (HCC) Encounter for therapeutic drug monitoring documented in this encounter Care Teams Janitorial Manager Relationship Specialty Start Date End Date Tanya Jane MD [address] [place] [address] PCP - General 01/05/18 07/09/24 documented as of this encounter
--- OUTSIDE RECORDS SUMMARY | 2024-11-09 23:15 | XMS_ITS | Encounter Summary ---
Author Organization [facility] Address [address] [facility] [place] [address] Care Team Providers Care Mushroom Spawn Maker Name Role Phone Tanya Jane MD Primary Care Provider [phone] Reason for Visit * Reason Onset Date Comments MEDICATION REFILL 11/14/2022 Encounter Details Date Type Department Care Team (Late st Contact Info) Description 11/14/2022 Refill [facility] [address] [place] [address], [facility] [place] [phone] Kervin Oates MD [address] [place] [address] [place] [phone] MEDICATION REFILL Social History Tobacco Use Types [...] * Telephone Encounter - Eleanor Gallo - 11/14/2022 11:12 AM CST Refill Request Kianna Hill TREVON: 09/20/2022 NOV scheduled: 12/20/2022 LRF: 10/20/2022 Qty Disp:4mL # of refills: 0 Allergies: Allergies Allergen Reactions ??? Codeine Nausea and/or Vomiting Pended Medication Order: Requested Prescriptions Pending Prescriptions Disp Refills ??? 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 documented in this encounter Plan of Treatment Upcoming Encounters Date Type Department Care Team (Late st Contact Info) Description 01/09/2025 2:00 PM CDT Office Visit [facility] [address] [place] [address], [place] [phone] [place] [address] [place] [address] [address] [place] [phone] 01/09/2025 2:30 PM CDT Office Visit [facility] GI [address] [place] [address], [place] [phone] Matias Lewis III, MD [address] [place] [address] [address] [place] [phone] 02/25/2025 2:30 PM CDT Office Visit [facility] - Rheumatology [address] [place] [address], [place] [address] Lonnie Tai MD [address] [facility]?? [place] [address] documented as of this encounter Visit Diagnoses Diagnosis Seropositive erosive rheumatoid arthritis (HCC) documented in this encounter Care Teams Mushroom Spawn Maker Relationship Specialty Start Date End Date Tanya Jane MD [address] [place] [address] [place] [address] PCP - General 01/05/18 07/09/24 documented as of this encounter
--- OUTSIDE RECORDS SUMMARY | 2024-11-09 23:15 | XMS_ITS | Encounter Summary ---
Author Organization [facility] Address [address] [facility] [place] [address] Care Team Providers Care Degreasing Solution Mixer Name Role Phone Tanya Jane MD Primary Care Provider [phone] Reason for Visit * Reason Onset Date Comments MEDICATION REFILL 12/15/2022 Encounter Details Date Type Department Care Team (Late st Contact Info) Description 12/15/2022 Refill [facility] [address] [place] [address], [facility] [place] [phone] Kervin Oates MD [address] [place] [address] [place] [phone] MEDICATION REFILL Social History Tobacco Use Types [...] * Telephone Encounter - Eleanor Gallo - 12/15/2022 11:43 AM CST Refill Request Kianna Hill TREVON: 09/20/2022 NOV scheduled: 12/20/2022 LRF:11/14/2022 Qty Disp: 4mL # of refills: 0 Allergies: Allergies Allergen Reactions ??? Codeine Nausea and/or Vomiting Pended Medication Order: Requested Prescriptions Pending Prescriptions Disp Refills ??? 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 documented in this encounter Plan of Treatment Upcoming Encounters Date Type Department Care Team (Late st Contact Info) Description 01/09/2025 2:00 PM CDT Office Visit [facility] GI [address] [place] [address], [place] [phone] [place] [address] [place] [address] [address] [place] [phone] 01/09/2025 2:30 PM CDT Office Visit [facility] - GI [address] [place] [address], [place] [phone] Matias Lewis III, MD [address] [place] [address] [address] [place] [phone] 02/25/2025 2:30 PM CDT Office Visit [facility] - Rheumatology [address] [place] [address], [place] [address] Lonnie Tai MD [address] [facility] [place] [address] documented as of this encounter Visit Diagnoses Diagnosis Seropositive erosive rheumatoid arthritis (HCC) documented in this encounter Care Teams Degreasing Solution Mixer Relationship Specialty Start Date End Date Tanya Jane MD [address] [place] [address] [place] [address] PCP - General 01/05/18 07/09/24 documented as of this encounter
--- OUTSIDE RECORDS SUMMARY | 2024-11-09 23:15 | XMS_ITS | Encounter Summary ---
Author Organization [facility] Address [address] [facility] [place] [address] Care Team Providers Care Set Up Person Name Role Phone Tanya Jane MD Primary Care Provider [phone] Reason for Visit * Reason Onset Date Comments MEDICATION REFILL 08/25/2021 meloxicam, Enb rel Encounter Details Date Type Department Care Team (Late st Contact Info) Description 08/25/2021 Refill [facility] [address] [facility], [place] [id number] Lisette Choe MD No info available MEDICATION REFILL (meloxicam, Enbrel) Social History Tobacco Use Types Packs/Day Years [...] encounter Miscellaneous Notes * Telephone Encounter - Miriam Estrada LPN - 08/25/2021 11:21 AM CDT Refill Request Kianna Hill TREVON: 08/04 NOV due: { NOV scheduled: 11/03/2021 LRF: 07/16, 10/01 Qty Disp: 4 mL, #90 # of refills: 0, 1 Labs: 08/05 KB Allergies: Allergies Allergen Reactions ??? Codeine Nausea and/or Vomiting Pended Medication Order: Requested Prescriptions No prescriptions requested or ordered in this encounter documented in this encounter Plan of Treatment Upcoming Encounters Date Type Department Care Team (Late st Contact Info) Description 01/09/2025 2:00 PM CDT Office Visit [facility] [address] [facility], [place] [address] Thalia Dunlap MD [address] [facility] [address] [place] [address] 01/09/2025 2:30 PM CDT Office Visit [facility] [address] [facility], [place] [address] Matias Lewis III, MD [address] [facility] 2L [place] [address] 02/25/2025 2:30 PM CDT Office Visit [facility] - Rheumatology [address] [place] [address], [place] [address] Lonnie Tai MD [address] [facility] [place] [address] documented as of this encounter Visit Diagnoses Diagnosis Seropositive erosive rheumatoid arthritis (HCC) Rheumatoid arthritis with positive rheumatoid factor, involving unspecified site (HCC) documented in this encounter Care Teams Set Up Person Relationship Specialty Start Date End Date Tanya Jane MD [address] [place] [address] PCP - General 01/05/18 07/09/24 documented as of this encounter
--- OUTSIDE RECORDS SUMMARY | 2024-11-09 23:15 | XMS_ITS | Encounter Summary ---
Author Organization [facility] Address [address] [facility] [place] [address] Care Team Providers Care Computer Systems Architect Name Role Phone Tanya Jane MD Primary Care Provider [phone] Reason for Referral * Radiology Services (Routine) - Closed Specialty Diagnoses / Procedures Referred By Contac t Referred To Contact Mammography Diagnoses Seropositive erosive rheumatoid arthritis (HCC) Osteoporosis screening Procedures BONE DENSITY AXIAL SKELETON(1OR MORE SITES)[id number] Gerald Merchant MD [address] [place] [address] [place] [address] [facility] Breast [facility] Op [address] [place] [address] Referral ID Status Reason Start Date Expiration Date Visits Re quested Visits Authorized [id number] Closed 05/05/2021 05/05/2022 1 1 Encounter Details Date Type Department Care Team (Late st Contact Info) Description 05/05/2021 3:00 PM CDT Office Visit [facility] Rheumatology [address] [place] [address], [place] [address] Lisette Choe MD No info available Seropositive erosive rheumatoid arthritis (HCC) (Primary Dx); Encounter for therapeutic drug monitoring; Elevated liver enzymes; Osteoporosis screening Social History Tobacco Use Types Packs/Day Years [...] Sign Reading Time Taken Comments Blood Pressure 100/76 05/05/2021 3:07 PM CDT Pulse - - Temperature 37.5 ??C (99.5 ??F) 05/05/2021 3:07 PM CD T Respiratory Rate - - Oxygen Saturation - - Inhaled Oxygen Concentration - - Weight 76 kg (167 lb 9.6 oz) 05/05/2021 3:07 PM CDT Height 170.2 cm (5' 7 ) 05/05/2021 3:07 PM CDT Body Mass Index 26.25 05/05/2021 3:07 PM CDT documented in this encounter Patient Instructions * Patient Instructions* Lisette Choe MD - 05/05/2021 3:51 PM CDT Continue Humira (WILL ORDER CITRATE FREE VERSION) If you continue to have skin swelling, itching, etc after Humira injection, let us know Someone should call to schedule bone density test (DEXA) Recommend to check if you've had shingles vaccine (Shingrix) and pneumonia vaccines with primary care doctor Recommend to follow up with PCP for elevated liver enzymes Follow up in 3 to [address] Choe and Dr. Merchant (Monday PM) If you need to change or cancel your Rheumatology appointment - At [facility]) at [facility] [facility], call [phone]. If you need a refill request, have your pharmacy fax a request to [phone]. If you need to leave a message for Dr. Choe, you can send her an electronic message via [employer] a voicemail at [phone]. Her office FAX number is [phone]. For after hours emergency only, you can call the [facility] blanchard grinder operator at [phone] and ask for the Media Marketing Manager workplace relations adviser to be paged. documented in this encounter Progress Notes * Lisette Choe MD - 05/05/2021 3:00 PM CDT [facility] Rheumatology Followup Clinic Visit Referring Physician: Provider Unknown No address on file PCP: Tanya Jane MD No chief complaint on file. HPI: 70 year old female with seropositive erosive RA (+RF, +CCP ab), osteopenia, DM, hypothyroidism. Last seen in clinic on 12/09/20 via tele visit. At that time arthritis controlled on leflunomide, however given elevated LFTs, was switched to Humira. Since then, she has started Humira and had 7 doses so far. Tolerated the first 4 doses well. Last 3doses has had some mild swelling at site of injection with hyperpigmentation afterwards, non tender, no drainage, no fevers. No other swelling, angioedema or SOB. Lesions self resolve within 24 hoursafter injection. Feels arthritis continues to be stable and well controlled on Humira. Current meds: Humira 40 mg SC Q14D (11/2020 - ) Meloxicam 7.5 mg daily LEF 20 mg daily (01/2017 - 11/2020, stopped 11/24 elevated LFTs) Disease Hx: Diagnosed with seropositive RA around [...] Medical/Surgical History: Past Medical History: Diagnosis Date ??? Hypertension ??? Rheumatoid arthritis ??? Type 2 diabetes mellitus Past Surgical History: Procedure Laterality Date ??? Hernia Repair ??? HX APPENDECTOMY ??? Ovarian Cyst Removal ??? OK REPAIR OF NASAL SEPTUM 1970 to help breathing but unsure if really ever need ??? Tonsillectomy Social History: Social History Socioeconomic History ??? Marital status: Spouse name: Not on file ??? Number of children: Not on file ??? Years of education: Not on file ??? Highest education level: Not on file Occupational History ??? Not on file Tobacco Use ??? Smoking status: Former Smoker ??? Smokeless tobacco: Never Used Vaping Use ??? Vaping Use: Never used Substance and Sexual Activity ??? Alcohol use: Yes Alcohol/week: 1.0 standard drinks Comment: occaisionally ??? Drug use: Yes Types: Marijuana ??? Sexual activity: Not on file Other Topics Concern ??? Not on file Social History Narrative ??? Not on file Social Determinants of Health Financial Resource Strain: ??? Difficulty of Paying Living Expenses: Food Insecurity: ??? Worried About Running Out of Food in the Last Year: ??? Ran Out of Food in the Last Year: Transportation Needs: ??? Lack of Transportation (Medical): ??? Lack of Transportation (Non-Medical): Physical Activity: ??? Days of Exercise per Week: ??? Minutes of Exercise per Session: Stress: ??? Feeling of Stress : Social Connections: ??? Frequency of Communication with Friends and Family: ??? Frequency of Social Gatherings with Friends and Family: ??? Attends Latter-Day Services: ??? Active Member of Clubs or Organizations: ??? Attends Club or Organization Meetings: ??? Marital Status: Intimate Partner Violence: ??? Fear of Current or Ex-Partner: ??? Emotionally Abused: ??? Physically Abused: ??? Sexually Abused: Family History: family history is not on file. Current Medications: Current Outpatient Medications Medication Sig Dispense Refill ??? adalimumab (HUMIRA) 40 MG/0.4ML injection Inject 0.4 mL subcutaneously every 14 days 2 syringe 3 ??? amLODIPine (NORVASC) 5 MG tablet Take 5 mg by mouth once daily ??? ergocalciferol (DRISDOL) 1.25 MG (24468 UT) capsule Take 1 capsule by mouth every 7 days ??? fenofibrate (LOFIBRA) 160 MG tablet Take 160 mg by mouth. ??? GLIPIZIDE XL 10 MG tablet Take 10 mg by mouth 2 times daily 3 ??? hydroCHLOROthiazide (HYDRODIURIL) 25 MG tablet Take 1 tablet by mouth once daily ??? levothyroxine (SYNTHROID) 75 MCG tablet Take 75 mcg by mouth DAILY. ??? losartan (COZAAR) 100 MG tablet Take 100 mg by mouth once daily 4 ??? meloxicam (MOBIC) 7.5 MG tablet Take 1 tablet by mouth once daily as needed 90 tablet 1 ??? metFORMIN (GLUCOPHAGE) 1000 MG tablet Take 1 tablet by mouth BID. 2 ??? omeprazole (PRILOSEC) 40 MG capsule Take 40 mg by mouth daily before breakfast ??? [facility] Institute[facility] VERIO test strip Use 1 strip as directed 4 ??? potassium chloride ER (KLOR-CON) 20 MEQ tablet Take 20 mEq by mouth 2 times daily ??? simvastatin (ZOCOR) 20 MG tablet Take 20 mg by mouth. No current facility-administered medications for this visit. Allergies: Allergies Allergen Reactions ??? Codeine Nausea and/or Vomiting Physical Exam: BP 100/76 Temp 99.5 ??F (37.5 ??C) (Oral) Ht 5' 7 (1.702 m) Wt 167 lb 9.6 oz (76 kg) BMI 26.25 kg/m2 General: normal, appears stated age Skin: Skin color, texture, turgor normal. hyperpigmented lesion over abdomen about 3 cm, no erythema, warmth, tenderness or drainage HEENT: Normocephalic, without obvious abnormality, atraumatic conjunctivae/corneas clear. EOMI, no oral or nasal ulcers, moist mucus membranes, supple neck Lymphatic: No cervical, supraclavicular, axillary, or inguinal adenopathy Back: symmetric, no curvature Chest/Lungs: clear to auscultation bilaterally, normal respiratory effort Heart: RRR, normal S1 and S2, no murmur, no rub Abdomen: soft, non-tender. Bowel sounds normal. Neurologic: Grossly normal cranial nerves Musculoskeletal Exam: Hands SfT0 2, 3MCP MS 5/5 in all extremities Labs: Reviewed, including those as noted below 04/29/21 CMP: Cr 1.1, ALP 180, ALT 49, AST 33 CBC: WNL ESR 2, CRP 3 12/11/20 HBcAb, HBsAg, HBsAb, HCV ab NR 08/15/16 RF 173, CCP >250 NAN negative, Anti SSA/SSB negative HBV, HCV NR Quant TB neg 12/11/20 Diagnostics/health maintenance: BL hand XRR 03/2019 Impression: 1. Right hand: Interval healing of erosions at the ulnar styloid process. No new erosions.??Mild osteoarthritis. New fracture of the tuft of the third distal phalanx since 2016. This is age-indeterminate and could be subacute. Please correlate with history and physical examination. 2. Left hand: Osteoarthritis, greatest at the first carpometacarpal joint. No erosions identified. ?? XR BL feet 12/2017 L foot: Mild posterior and slight plantar calcaneal enthesopathy. No fracture, dislocation, periosteal reaction. ??Small erosions at medial aspect of 1st metatarsal head R foot: Plantar calcaneal enthesopathy. Hallux Valgus and bunion deformity. Osteoarthritic change at first metatarsal-phalangeal joint. No fracture, dislocation, periosteal reaction, or bone destruction ?? DEXA ([facility]) 02/07/17: L spine BMD 0.977; T-score -0.6 L Femoral neck BMD: 0.864; T-score +0.5 R Femoral neck BMD0.787; T-score -0.6 ?? Assessment & Plan: 1. Seropositive erosive rheumatoid arthritis 2. Encounter for therapeutic drug monitoring 3. Elevated liver enzymes 4. Osteoporosis screening Kianna Hill is a 70 year old female with seropositive erosive RA (+RF, +CCP ab), osteopenia, DM,hypothyroidism who returns for follow up. Recently been started on Humira, has had some mild skin reaction after injections. Will make sure patient on citrate free Humira and continue to monitor for any additional or worsening reactions. RA remains well controlled. Due for repeat DEXA screening. - Labs as below - Instructed to contact clinic if having worsening skin reaction or swelling, SOB - Continue Humira 40 mg SC Q14D - Continue meloxicam 7.5 mg daily - Repeat DEXA - Recommend to get shingles and pneumonia vaccines with PCP if not done already RTC in 4 mo Lisette Choe MD Rheumatology Fellow Patient seen and examined with Dr. Merchant. The following were ordered during this visit: Orders Placed This Encounter ??? BONE DENSITY AXIAL SKELETON(1OR MORE SITES)[id number] Standing Status: Future Standing Expiration Date: 05/05/2022 Order Specific Question: Release to patient Answer: Immediate Order Specific Question: What specific clinical question do you want answered? Answer: osteopenia/osteoporosis ??? adalimumab (HUMIRA) 40 MG/0.4ML injection Sig: Inject 0.4 mL subcutaneously every 14 days Dispense: 2 syringe Refill: 3 Associated attestation - Gerald Merchant MD - 05/10/2021 1:28 PM CDT Patient was seen and examined by me and I agree with Dr. Choe's note including assessment and plan. 70-year-old lady with seropositive erosive RA(+ RF, positive ACPA) who was last started on Humira and leflunomide was discontinued due to persistently elevated LFTs. Patient reported improvement in her joint pain and that her RA is currently stable however she did report injection site reaction with Humira especially with recent refill. Physical exam. No overt synovitis on exam, no joint effusion and normal range of movement at all the joints Assessment/plan. 60-year-old lady with seropositive erosive RA currently on Humira monotherapy and overall seems to have good control of her symptoms and without overt synovitis on exam. We will giveher a new prescription of citrate free Humira and see if she tolerates it well. Continue meloxicam 7.5 mg daily. We will get DEXA scan and encouraged the patient to get shingles and pneumonia vaccines as if we have to switch Humira to different DMARD then would consider Daren inhibitors which can increase the risk of shingles. documented in this encounter Plan of Treatment Upcoming Encounters Date Type Department Care Team (Late st Contact Info) Description 01/09/2025 2:00 PM CDT Office Visit [facility] [address] [place] [address], [place] [phone] [place] [address] [place] [address] [address] [place] [phone] 01/09/2025 2:30 PM CDT Office Visit [facility] [address] [place] [address], [place] [address] Matias Lewis III, MD [address] [place] [address] [address] [phone] 02/25/2025 2:30 PM CDT Office Visit [facility] - Rheumatology [address] [place] [address], [place] [address] Lonnie Tai MD [address] [facility] [place] [address] documented as of this encounter Results * BONE DENSITY AXIAL SKELETON(1OR MORE SITES)[id number] (05/13/2021 8:11 AM CDT) Anatomical Region Laterality Modality Other 05/13/2021 2:47 PM CDT Narrative 05/13/2021 3:03 PM CDT Examination: Dual energy x-ray absorptiometry of the hip. Clinical Indication: M05.80: Seropositive erosive rheumatoid arthritis Z13.820: Osteoporosis screening Findings: Detailed data from the exam is sent separately to the ordering physician and is also available on [employer], the Radiology Department's computerized picture archive system. [...] ordering physician and is also available on [employer], the Radiology Department's computerized picture archive system. [...] PM . Gerald Merchant MD DEXA ORDERABLES documented in this encounter Visit Diagnoses Diagnosis Seropositive erosive rheumatoid arthritis (HCC)- Primary Encounter for therapeutic drug monitoring Elevated liver enzymes Nonspecific elevation of levels of transaminase or lactic acid dehydrogenase (LDH) Osteoporosis screening Special screening for osteoporosis Seropositive erosive rheumatoid arthritis (HCC) Osteoporosis screening Special screening for osteoporosis documented in this encounter Care Teams Computer Systems Architect Relationship Specialty Start Date End Date Tanya Jane MD [address] [place] [address] [place] [address] PCP - General 01/05/18 07/09/24 documented as of this encounter
--- OUTSIDE RECORDS SUMMARY | 2024-11-09 23:15 | XMS_ITS | Encounter Summary ---
Author Organization [facility] Address [address] [facility] [place] [address] Care Team Providers Care Calender Wind Up Helper Name Role Phone Tanya Jane MD Primary Care Provider [phone] Encounter Details Date Type Department Care Team ([facility] Contact Info) Description 03/02/2021 Orders Only [facility] [address] [place] [address], [place] [phone] Gerald Merchant MD [address] [place] [address] [place] [phone] Seropositive erosive rheumatoid arthritis (HCC) Social History [...] Office Visit [facility] GI [address] [place] [address], [place] [phone] Thalia Dunlap MD [address] [place] [address] [address] [place] [phone] 01/09/2025 2:30 PM CDT Office Visit [facility] - GI [address] [place] [address], [place] [phone] Matias Lewis III, MD [address] [facility] 2L [place] [address] 02/25/2025 2:30 PM CDT Office Visit [facility] - Rheumatology [address] [facility], [place] [phone] Lonnie Tai MD [address] [facility] [place] [address] documented as of this encounter Visit Diagnoses Diagnosis Seropositive erosive rheumatoid arthritis (HCC) documented in this encounter Care Teams Calender Wind Up Helper Relationship Specialty Start Date End Date Tanya Jane MD [address] [place] [address] [place] [address] PCP - General 01/05/18 07/09/24 documented as of this encounter
--- OUTSIDE RECORDS SUMMARY | 2024-11-09 23:15 | XMS_ITS | Encounter Summary ---
Author Organization [facility] Address [facility] [place] [address] Care Team Providers Care Dining Room Tables Set Up Attendant Name Role Phone Tanya Jane MD Primary Care Provider [phone] Reason for Visit * Reason Comments Autoimmune Disease SeroPos RA Encounter Details Date Type Department Care Team (Latest Contact Info) Description 09/20/2022 8:30 AM TOOLROOM CLERK Office Visit [facility] Rheumatology [address] [place] [phone] Kervin Oates MD [address] [place] [address] [place] [address] Rheumatoid arthritis with positive rheumatoid factor, involving unspecified site (HCC) (Primary Dx); Long-term use of immunosuppressant medication; Elevated ALT measurement; Therapeutic drug monitoring Social History Tobacco Use [...] Sign Reading Time Taken Comments Blood Pressure 124/78 09/20/2022 8:31 AM TOOLROOM CLERK Pulse 89 09/20/2022 8:31 AM TOOLROOM CLERK Temperature 36.9 ??C (98.4 ??F) 09/20/2022 8:31 AM CS T Respiratory Rate - - Oxygen Saturation 100% 09/20/2022 8:31 AM TOOLROOM CLERK Inhaled Oxygen Concentration - - Weight 75.8 kg (167 lb) 09/20/2022 8:31 AM TOOLROOM CLERK Height 167.6 cm (5' 6 ) 09/20/2022 8:31 AM TOOLROOM CLERK Body Mass Index 26.95 09/20/2022 8:31 AM TOOLROOM CLERK documented in this encounter Patient Instructions * Patient Instructions* Kervin Oates MD - 09/20/2022 8:53 AM TOOLROOM CLERK Please get labs today. Please get x-rays today. Please make appointment with hepatology for elevated liver numbers. Please make a follow up appointment for December 20 11:30 AM To cancel, schedule, or reschedule an appointment, call [phone] or [phone], option 1. If you choose to get labs or imaging at an outside facility, it is your (as the patient) responsibility to have these results sent to us. Our fax number is [phone]. If you need a refill on your medication, please call your pharmacy first to have them send us a refill request. If you have a non-urgent medical question for Dr. Oates, please send a message in [facility] to [facility] or call [phone]. If you have an emergency after hours, you can reach the grinder and honer operator automatic fellow by calling the manufacturing operator [phone], but please also seek out appropriate care at Urgent Care or Emergency Room. ROOM CLERK documented in this encounter Progress Notes * Kervin Oates MD - 09/20/2022 8:38 AM CST Rheumatology Clinic Follow Up Visit [facility] Division of Adult and Pediatric Rheumatology Patient: Kianna Hill ( , 1950, 72 year old female) PCP: Tanya Jane MD Encounter Date: 09/20/2022 History Obtained From: Patient and review of EHR CC: nodules History of Present Illness: Denies pain or stiffness. No swelling or weakness. Uses meloxicam 1-2x/month. New knots on elbows. Onset over several months. Progressive. Non painful. Located on/near both elbows. Taking Enbrel w/o issue. No recent illness. Review of Systems: Other systems reviewed and [...] 20 mg by mouth., Disp: , Rfl: Allergies Allergen Reactions ??? [...] family history on file. Physical Exam: BP 124/78 (BP SITE: RIGHT ARM, BP POSITION: SITTING, BP CUFF SIZE: 11) Pulse 89 Temp 98.4 ??F (36.9 ??C) (Oral) Ht 5' 6 (1.676 m) Wt 167 lb (75.8 kg) SpO2 100% BMI 26.95 kg/m?? General: Alert. Oriented. NAD. HEENT: Normal cornea/conjunctivae. EOMI. MMM. No mucosal ulcerations. Normal external ear. Cardiac: Normal rate, regular rhythm. Normal S1 and S2. No m/r/g. Chest/Lungs: Clear to auscultation bilaterally. No adventitious sounds. Good air movement. Normal respiratory rate and effort. Abdomen: Normal BS. Soft. Non-distended. Non-tender to palpation. MSK: Gait: Normal Neck/Back: Unremarkable Upper Extremity: Left interphalangeal S2T0. Left 2nd MCP S1To. Right 3rd PIP flexed at rest. Left wrist SfT0. Right wrist [id number]. Firm < 1 cm nodule over L forearm. Soft, mobile nodule over right olecranon. Lower Extremity: Palpable knee crepitus. Hallux valgus deformity. Otherwise unremarkable. Vascular/lymphatic: Arterial pulses 2+ and regular. Normal capillary refill. No edema. No appreciable LAD. Integumentary: Normal texture and turgor. No appreciable rashes or lesions. Hair is normal texture and in normal distribution. Neurologic: Strength is uniform and 5/5 throughout. No appreciable sensory deficit. Labs: Reviewed, including those as noted below Recent Labs Component Name 11/01/21 0851 08/05/21 0832 04/29/21 0809 03/02/21 0822 12/11/20 0831 09/30/20 0804 03/12/18 0956 12/27/17 0919 11/02/17 0703 09/19/17 0731 08/08/17 0740 06/30/17 0732 04/26/17 0820 WBC 7.5 7.8 6.8 6.3 8.4 7.9 - 8.0 8.1 6.6 7.4 7.4 7.6 NEUTABS - - - - - - - 5.6 5.0 4.2 4,573 4,677 4,894 LYMPHABS 1.9 1.3 1.7 1.6 1.6 1.7 - - - - - - - HGB 12.5 12.2 12.3 12.3 11.3 10.5* - 12.7 13.3 12.9 12.8 11.7 12.1 MCV 86 89 95 98* 99* 96 - 89 85 89 85.5 85.4 85.3 PLTCOUNT 253 198 237 242 294 262 - - - - - - - - = values in this interval not displayed. Recent Labs Component Name 11/01/21 0851 08/05/21 0832 04/29/21 0809 03/02/21 0822 12/11/20 0831 09/30/20 0804 BUN 9 10 10 7* 7* 6* CREATININE 1.12* 1.23* 1.10* 1.09* 0.97 1.07* EGFR 50* 45* 52* 52* 60 53* AST 22 25 33 34 30 26 ALT 38* 38* 49* 36* 34* 30 Imaging: n/a Other Studies: n/a Assessment/Plan: Seropositive erosive rheumatoid arthritis Onset 2013. RF 173. CCP > 250. Erosions+. Possibly new nodules? Intolerant of Humira. Elevated ALT on leflunomide. Remains on Enbrel monotherapy. Clinically well controlled with exception of possible new nodules. - continue Enbrel 50 mg SC Q7D - XR hands, wrists, feet to monitor for sub-clinical progression - XR left forearm to evaluate firm nodule Discussed with Dr. Mayur Oates MD Adult and Pediatric Rheumatology Fellow Orders Placed This Encounter ??? XR HAND LEFT 3VW OR MORE Standing Status: Future Standing Expiration Date: 09/20/2023 Order Specific Question: Release to patient Answer: Immediate ??? XR HAND RIGHT 3VW OR MORE Standing Status: Future Standing Expiration Date: 09/20/2023 Order Specific Question: Release to patient Answer: Immediate ??? XR WRIST LEFT 3VW OR MORE Standing Status: Future Standing Expiration Date: 09/20/2023 Order Specific Question: Release to patient Answer: Immediate Order Specific Question: Which Views are required? Answer: Radiologist Protocol Views ??? XR WRIST RIGHT 3VW OR MORE Standing Status: Future Standing Expiration Date: 09/20/2023 Order Specific Question: Release to patient Answer: Immediate Order Specific Question: Which Views are required? Answer: Radiologist Protocol Views ??? XR FOOT LEFT 3VW OR MORE Standing Status: Future Standing Expiration Date: 09/20/2023 Order Specific Question: Release to patient Answer: Immediate ??? XR FOOT RIGHT 3VW OR MORE Standing Status: Future Standing Expiration Date: 09/20/2023 Order Specific Question: Release to patient Answer: Immediate ??? XR FOREARM LEFT 2VW Standing Status: Future Standing Expiration Date: 09/20/2023 Order Specific Question: Release to patient Answer: Immediate ??? COMPREHENSIVE METABOLIC PANEL Order Specific Question: Release to patient Answer: Immediate ??? CBC WITH DIFFERENTIAL Order Specific Question: Release to patient Answer: Immediate ??? URIC ACID BLOOD Order Specific Question: Release to patient Answer: Immediate ??? QUANTIFERON TB-GOLD Order Specific Question: Release to patient Answer: Immediate ??? Ref to [facility] - [facility] Standing Status: Future Standing Expiration Date: 09/20/2023 Referral Priority: Routine Referral Type: Evaluate & Treat Referral Reason: Specialty Services Required Number of Visits Requested: 1 ROOM CLERK Associated attestation - Gerald Merchant MD - 09/26/2022 1:18 PM TOOLROOM CLERK Pt was seen and examined by me and I agree with fellow's note including assessment/plan. ICD-10-CM 1. Rheumatoid arthritis with positive rheumatoid factor, involving unspecified site (CMS/HCC) M05.9 2. Long-term use of immunosuppressant medication Z79.60 3. Elevated ALT measurement R74.01 4. Therapeutic drug monitoring Z51.81 Seropositive RA on Enbrel. interval development if elbow nodule.on exam she has chronic synovial changes right 2nd MCP and right 3rd PIP flexion deformity. RIght olecranon bursae nodule. Update MSK x rays. check uric acid. she has had elevated transaminases which were attributed to useof DAMRDs, USG liver showed fatty liver changes. will place referral to Hepatology for further evaluation. get labs including TB Quant. documented in this encounter Plan of Treatment Upcoming Encounters Date Type Department Care Team (Late st Contact Info) Description 01/09/2025 2:00 PM CDT Office Visit [facility] [address] [place] [address], [place] [phone] Thalia Dunlap MD [address] [place] [address] [address] [place] [phone] 01/09/2025 2:30 PM CDT Office Visit [facility] [address] [place] [address], [place] [phone] Matias Lewis III, MD [address] [place] [address] [address] [place] [phone] 02/25/2025 2:30 PM CDT Office Visit [facility] - Rheumatology [address] [place] [address], [place] [phone] Lonnie Tai MD [address] [facility] [place] [address] documented as of this encounter Procedures Procedure Name Priority Date/Time Associated Diagnosis Comments URIC ACID BLOOD Routine 09/22/2022 8:24 AM TOOLROOM CLERK Rheumatoid arthritis with positive rheumatoid factor, involving unspecified site (HCC) Long-term use of immunosuppressant medication QUANTIFERON TB-GOLD Routine 09/22/2022 8 :24 AM TOOLROOM CLERK Rheumatoid arthritis with positive rheumatoid factor, involving unspecified site (HCC) Long-term use of immunosuppressant medication CBC W AUTO DIFFERENTIAL Routine 09/22/2022 8:24 AM TOOLROOM CLERK Rheumatoid arthritis with positive rheumatoid factor, involving unspecified site (HCC) Long-term use of immunosuppressant medication COMPREHENSIVE METABOLIC PANEL Routine 09/22/2022 8:24 AM TOOLROOM CLERK Rheumatoid arthritis with positive rheumatoid factor, involving unspecified site (HCC) Long-term use of immunosuppressant medication documented in this encounter Results * XR FOREARM LEFT 2VW (12/15/2022 2:23 PM TOOLROOM CLERK) Anatomical Region Laterality Modality Upper Extremity Radiographic Adelina ging 12/15/2022 2:45 PM TOOLROOM CLERK Impressions 12/15/2022 2:59 PM TOOLROOM CLERK Impression: 1. Right hand and wrist: Moderate [...] Terrance Madrigal MD on 12/15/2022 2:59 PM Narrative 12/15/2022 2:59 PM TOOLROOM CLERK PROCEDURE: ??XR FOREARM LEFT 2VW, XR FOOT RIGHT 3VW OR MORE, XR FOOT LEFT 3VW OR MORE, XR WRIST RIGHT 3VW OR MORE, XR WRIST LEFT 3VW OR MORE, XR HAND RIGHT 3VW OR MORE, XR HAND LEFT 3VW OR MORE, DATE/TIME OF EXAM: ??12/15/2022 2:23 PM, LOCATION ??[facility] INDICATION: M05.9: Rheumatoid arthritis with positive rheumatoid factor, involving unspecified site ([facility]/HCC) ADDITIONAL CLINICAL INFORMATION: Ordering Provider Reason For [...] soft tissues are normal. Procedure Note Terrance Madrigal MD - 12/15/2022 PROCEDURE: XR FOREARM LEFT 2VW, XR FOOT RIGHT 3VW OR MORE, XR FOOT LEFT 3VW OR MORE, XR WRIST RIGHT 3VW OR MORE, XR WRIST LEFT 3VW OR MORE, XRHAND RIGHT 3VW OR MORE, XR HAND LEFT 3VW OR MORE, DATE/TIME OF EXAM:12/15/2022 2:23 PM, LOCATION [facility] INDICATION: M05.9: Rheumatoid arthritis with positive rheumatoid factor, involving unspecified site ([facility]) ADDITIONAL CLINICAL INFORMATION: Ordering Provider Reason For [...] Terrance Madrigal MD on 12/15/2022 2:59 PM Gerald Merchant MD DIAGNOSTIC IMAGING O RDERABLES * XR FOOT RIGHT 3VW OR MORE (12/15/2022 2:23 PM TOOLROOM CLERK) Anatomical Region Laterality Modality Ankle / Foot Radiographic Adelina ging 12/15/2022 2:45 PM TOOLROOM CLERK Impressions 12/15/2022 2:59 PM TOOLROOM CLERK Impression: 1. Right hand and wrist: Moderate [...] Terrance Madrigal MD on 12/15/2022 2:59 PM Narrative 12/15/2022 2:59 PM TOOLROOM CLERK PROCEDURE: ??XR FOREARM LEFT 2VW, XR FOOT RIGHT 3VW OR MORE, XR FOOT LEFT 3VW OR MORE, XR WRIST RIGHT 3VW OR MORE, XR WRIST LEFT 3VW OR MORE, XR HAND RIGHT 3VW OR MORE, XR HAND LEFT 3VW OR MORE, DATE/TIME OF EXAM: ??12/15/2022 2:23 PM, LOCATION ??[facility] INDICATION: M05.9: Rheumatoid arthritis with positive rheumatoid factor, involving unspecified site ([facility]) ADDITIONAL CLINICAL INFORMATION: Ordering Provider Reason For [...] soft tissues are normal. Procedure Note Terrance Madrigal MD - 12/15/2022 PROCEDURE: XR FOREARM LEFT 2VW, XR FOOT RIGHT 3VW OR MORE, XR FOOT LEFT 3VW OR MORE, XR WRIST RIGHT 3VW OR MORE, XR WRIST LEFT 3VW OR MORE, XRHAND RIGHT 3VW OR MORE, XR HAND LEFT 3VW OR MORE, DATE/TIME OF EXAM:12/15/2022 2:23 PM, LOCATION [facility] INDICATION: M05.9: Rheumatoid arthritis with positive rheumatoid factor, involving unspecified site ([facility]) ADDITIONAL CLINICAL INFORMATION: Ordering Provider Reason For [...] Terrance Madrigal MD on 12/15/2022 2:59 PM Gerald Merchant MD DIAGNOSTIC IMAGING O RDERABLES * XR FOOT LEFT 3VW OR MORE (12/15/2022 2:23 PM TOOLROOM CLERK) Anatomical Region Laterality Modality Ankle / Foot Radiographic Adelina ging 12/15/2022 2:45 PM TOOLROOM CLERK Impressions 12/15/2022 2:59 PM TOOLROOM CLERK Impression: 1. Right hand and wrist: Moderate [...] Terrance Madrigal MD on 12/15/2022 2:59 PM Narrative 12/15/2022 2:59 PM TOOLROOM CLERK PROCEDURE: ??XR FOREARM LEFT 2VW, XR FOOT RIGHT 3VW OR MORE, XR FOOT LEFT 3VW OR MORE, XR WRIST RIGHT 3VW OR MORE, XR WRIST LEFT 3VW OR MORE, XR HAND RIGHT 3VW OR MORE, XR HAND LEFT 3VW OR MORE, DATE/TIME OF EXAM: ??12/15/2022 2:23 PM, LOCATION ??[facility] INDICATION: M05.9: Rheumatoid arthritis with positive rheumatoid factor, involving unspecified site ([facility]) ADDITIONAL CLINICAL INFORMATION: Ordering Provider Reason For [...] soft tissues are normal. Procedure Note Terrance Madrigal MD - 12/15/2022 PROCEDURE: XR FOREARM LEFT 2VW, XR FOOT RIGHT 3VW OR MORE, XR FOOT LEFT 3VW OR MORE, XR WRIST RIGHT 3VW OR MORE, XR WRIST LEFT 3VW OR MORE, XRHAND RIGHT 3VW OR MORE, XR HAND LEFT 3VW OR MORE, DATE/TIME OF EXAM:12/15/2022 2:23 PM, LOCATION [facility] INDICATION: M05.9: Rheumatoid arthritis with positive rheumatoid factor, involving unspecified site ([facility]) ADDITIONAL CLINICAL INFORMATION: Ordering Provider Reason For [...] Terrance Madrigal MD on 12/15/2022 2:59 PM Gerald Merchant MD DIAGNOSTIC IMAGING O RDERABLES * XR WRIST RIGHT 3VW OR MORE (12/15/2022 2:23 PM TOOLROOM CLERK) Anatomical Region Laterality Modality Wrist / Hand Radiographic Adelina ging 12/15/2022 2:45 PM TOOLROOM CLERK Impressions 12/15/2022 2:59 PM TOOLROOM CLERK Impression: 1. Right hand and wrist: Moderate [...] Terrance Madrigal MD on 12/15/2022 2:59 PM Narrative 12/15/2022 2:59 PM TOOLROOM CLERK PROCEDURE: ??XR FOREARM LEFT 2VW, XR FOOT RIGHT 3VW OR MORE, XR FOOT LEFT 3VW OR MORE, XR WRIST RIGHT 3VW OR MORE, XR WRIST LEFT 3VW OR MORE, XR HAND RIGHT 3VW OR MORE, XR HAND LEFT 3VW OR MORE, DATE/TIME OF EXAM: ??12/15/2022 2:23 PM, LOCATION ??[facility] INDICATION: M05.9: Rheumatoid arthritis with positive rheumatoid factor, involving unspecified site ([facility]) ADDITIONAL CLINICAL INFORMATION: Ordering Provider Reason For [...] soft tissues are normal. Procedure Note Terrance Madrigal MD - 12/15/2022 PROCEDURE: XR FOREARM LEFT 2VW, XR FOOT RIGHT 3VW OR MORE, XR FOOT LEFT 3VW OR MORE, XR WRIST RIGHT 3VW OR MORE, XR WRIST LEFT 3VW OR MORE, XRHAND RIGHT 3VW OR MORE, XR HAND LEFT 3VW OR MORE, DATE/TIME OF EXAM:12/15/2022 2:23 PM, LOCATION [facility] INDICATION: M05.9: Rheumatoid arthritis with positive rheumatoid factor, involving unspecified site ([facility]) ADDITIONAL CLINICAL INFORMATION: Ordering Provider Reason For [...] Terrance Madrigal MD on 12/15/2022 2:59 PM Gerald Merchant MD DIAGNOSTIC IMAGING O RDERABLES * XR WRIST LEFT 3VW OR MORE (12/15/2022 2:23 PM TOOLROOM CLERK) Anatomical Region Laterality Modality Wrist / Hand Radiographic Adelina ging 12/15/2022 2:45 PM TOOLROOM CLERK Impressions 12/15/2022 2:59 PM TOOLROOM CLERK Impression: 1. Right hand and wrist: Moderate [...] Terrance Madrigal MD on 12/15/2022 2:59 PM Narrative 12/15/2022 2:59 PM TOOLROOM CLERK PROCEDURE: ??XR FOREARM LEFT 2VW, XR FOOT RIGHT 3VW OR MORE, XR FOOT LEFT 3VW OR MORE, XR WRIST RIGHT 3VW OR MORE, XR WRIST LEFT 3VW OR MORE, XR HAND RIGHT 3VW OR MORE, XR HAND LEFT 3VW OR MORE, DATE/TIME OF EXAM: ??12/15/2022 2:23 PM, LOCATION ??[facility] INDICATION: M05.9: Rheumatoid arthritis with positive rheumatoid factor, involving unspecified site ([facility]) ADDITIONAL CLINICAL INFORMATION: Ordering Provider Reason For [...] soft tissues are normal. Procedure Note Terrance Madrigal MD - 12/15/2022 PROCEDURE: XR FOREARM LEFT 2VW, XR FOOT RIGHT 3VW OR MORE, XR FOOT LEFT 3VW OR MORE, XR WRIST RIGHT 3VW OR MORE, XR WRIST LEFT 3VW OR MORE, XRHAND RIGHT 3VW OR MORE, XR HAND LEFT 3VW OR MORE, DATE/TIME OF EXAM:12/15/2022 2:23 PM, LOCATION [facility] INDICATION: M05.9: Rheumatoid arthritis with positive rheumatoid factor, involving unspecified site ([facility]) ADDITIONAL CLINICAL INFORMATION: Ordering Provider Reason For [...] Terrance Madrigal MD on 12/15/2022 2:59 PM Gerald Merchant MD DIAGNOSTIC IMAGING O RDERABLES * XR HAND RIGHT 3VW OR MORE (12/15/2022 2:23 PM TOOLROOM CLERK) Anatomical Region Laterality Modality Wrist / Hand Radiographic Adelina ging 12/15/2022 2:45 PM TOOLROOM CLERK Impressions 12/15/2022 2:59 PM TOOLROOM CLERK Impression: 1. Right hand and wrist: Moderate [...] Terrance Madrigal MD on 12/15/2022 2:59 PM Narrative 12/15/2022 2:59 PM TOOLROOM CLERK PROCEDURE: ??XR FOREARM LEFT 2VW, XR FOOT RIGHT 3VW OR MORE, XR FOOT LEFT 3VW OR MORE, XR WRIST RIGHT 3VW OR MORE, XR WRIST LEFT 3VW OR MORE, XR HAND RIGHT 3VW OR MORE, XR HAND LEFT 3VW OR MORE, DATE/TIME OF EXAM: ??12/15/2022 2:23 PM, LOCATION ??[facility] INDICATION: M05.9: Rheumatoid arthritis with positive rheumatoid factor, involving unspecified site ([facility]) ADDITIONAL CLINICAL INFORMATION: Ordering Provider Reason For [...] soft tissues are normal. Procedure Note Terrance Madrigal MD - 12/15/2022 PROCEDURE: XR FOREARM LEFT 2VW, XR FOOT RIGHT 3VW OR MORE, XR FOOT LEFT 3VW OR MORE, XR WRIST RIGHT 3VW OR MORE, XR WRIST LEFT 3VW OR MORE, XRHAND RIGHT 3VW OR MORE, XR HAND LEFT 3VW OR MORE, DATE/TIME OF EXAM:12/15/2022 2:23 PM, LOCATION [facility] INDICATION: M05.9: Rheumatoid arthritis with positive rheumatoid factor, involving unspecified site ([facility]) ADDITIONAL CLINICAL INFORMATION: Ordering Provider Reason For [...] Terrance Madrigal MD on 12/15/2022 2:59 PM Gerald Merchant MD DIAGNOSTIC IMAGING O RDERABLES * XR HAND LEFT 3VW OR MORE (12/15/2022 2:23 PM TOOLROOM CLERK) Anatomical Region Laterality Modality Wrist / Hand Radiographic Adelina ging 12/15/2022 2:45 PM TOOLROOM CLERK Impressions 12/15/2022 2:59 PM TOOLROOM CLERK Impression: 1. Right hand and wrist: Moderate [...] Terrance Madrigal MD on 12/15/2022 2:59 PM Narrative 12/15/2022 2:59 PM TOOLROOM CLERK PROCEDURE: ??XR FOREARM LEFT 2VW, XR FOOT RIGHT 3VW OR MORE, XR FOOT LEFT 3VW OR MORE, XR WRIST RIGHT 3VW OR MORE, XR WRIST LEFT 3VW OR MORE, XR HAND RIGHT 3VW OR MORE, XR HAND LEFT 3VW OR MORE, DATE/TIME OF EXAM: ??12/15/2022 2:23 PM, LOCATION ??[facility] INDICATION: M05.9: Rheumatoid arthritis with positive rheumatoid factor, involving unspecified site ([facility]) ADDITIONAL CLINICAL INFORMATION: Ordering Provider Reason For [...] soft tissues are normal. Procedure Note Terrance Madrigal MD - 12/15/2022 PROCEDURE: XR FOREARM LEFT 2VW, XR FOOT RIGHT 3VW OR MORE, XR FOOT LEFT 3VW OR MORE, XR WRIST RIGHT 3VW OR MORE, XR WRIST LEFT 3VW OR MORE, XRHAND RIGHT 3VW OR MORE, XR HAND LEFT 3VW OR MORE, DATE/TIME OF EXAM:12/15/2022 2:23 PM, LOCATION [facility] INDICATION: M05.9: Rheumatoid arthritis with positive rheumatoid factor, involving unspecified site ([facility]) ADDITIONAL CLINICAL INFORMATION: Ordering Provider Reason For [...] Terrance Madrigal MD on 12/15/2022 2:59 PM Gerald Merchant MD DIAGNOSTIC IMAGING O RDERABLES * QUANTIFERON TB-GOLD (09/22/2022 8:24 AM TOOLROOM CLERK) QuantiFERON Incubation Incubation performed. [facility] INSURANCE BILL [...] for the test. QuantiFERON TB1 Ag Value 0.01 IU/mL [facility] INSURANCE BILL QuantiFERON TB2 Ag Value 0.01 IU/mL [facility] INSURANCE BILL QuantiFERON Nil Value 0.01 IU/mL [facility] INSURANCE BILL QuantiFERON Mitogen Value >10.00 IU/mL [facility] INSURANCE BILL QuantiFERON-TB Gold Plus Negative Negative [facility] INSURANCE BILL Comment: No response to M tuberculosis antigens detected. Infection with M tuberculosis is unlikely, but high risk individuals should be considered for additional testing (ATS/IDSA/CDC Clinical Practice Guidelines, 2017). The reference range is an Antigen minus Nil result of <0.35 IU/mL. Chemiluminescence immunoassay methodology FASTING Blood BLOOD SPECIMEN / Unknown 09/22/2022 8:24 AM TOOLROOM CLERK 09/22/2022 Narrative Resulting Agency Comment Lab Testing performed at: [address] ??Critical access hospital [id number] Gerald Merchant MD LAB - CHEMISTRY ROBERT MAY Performing Organization Address City/[facility]/ZIP Co de Phone Number [facility] INSURANCE BILL [address] [place] [address] * URIC ACID BLOOD (09/22/2022 8:24 AM TOOLROOM CLERK) Uric Acid 3.4 3.0 - 7.2 mg/dL [facility] INSURANCE BILL Comment: ?Therapeutic target for gout patients: <6.0 FASTING Blood BLOOD SPECIMEN / Unknown 09/22/2022 8:24 AM TOOLROOM CLERK 09/22/2022 Narrative Resulting Agency Comment Lab Testing performed at: [facility] [address] ??Critical access hospital [id number] Gerald Merchant MD LAB - CHEMISTRY ROBERT MAY [facility] INSURANCE BILL [address] [place] [address] * (ABNORMAL) CBC WITH DIFFERENTIAL (09/22/2022 8:24 AM TOOLROOM CLERK) WBC 7.9 3.4 - 10.8 x10E3/uL [facility] INSURANCE BILL RBC 4.78 3.77 - 5.28 x10E6/uL [facility] INSURANCE BILL Hemoglobin 12.3 11.1 - 15.9 g/dL [facility] INSURANCE BILL Hematocrit 38.0 34.0 - 46.6 % [facility] INSURANCE BILL MCV 80 79 - 97 fL [facility] INSURANCE BILL MCH 25.7(L) 26.6 - 33.0 pg [facility] INSURANCE BILL MCHC 32.4 31.5 - 35.7 g/dL [facility] INSURANCE BILL RDW 15.1 11.7 - 15.4 % [facility] INSURANCE BILL Platelet Count 292 150 - 450 x10E3/uL [facility] INSURANCE BILL Granulocytes % 65 Not Estab. % [facility] INSURANCE BILL Lymphocytes % 26 Not Estab. % [facility] INSURANCE BILL Monocytes % 6 Not Estab. % [facility] INSURANCE BILL Eosinophils % 2 Not Estab. % [facility] INSURANCE BILL Basophils % 1 Not Estab. % [facility] INSURANCE BILL Immature Cells NOT AVAILABLE [facility] INSURANCE BILL Comment:Result cannot be obt ained for this observation. Granulocytes Absolute 5.1 1.4 - 7.0 x10E3/uL [facility] INSURANCE BILL Lymphocytes Absolute 2.0 0.7 - 3.1 x10E3/uL [facility] INSURANCE BILL [...] Result cannot be obtained for this observation. Blood BLOOD SPECIMEN / Unknown 09/22/2022 8:24 AM TOOLROOM CLERK 09/22/2022 Narrative Resulting Agency Comment Lab Testing performed at: [facility] ??Critical access hospital [id number] Gerald Merchant MD LAB - HEMATOLOGY ORD ERABLES [facility] INSURANCE BILL [address] [place] [address] * (ABNORMAL) COMPREHENSIVE METABOLIC PANEL (09/22/2022 8:24 AM TOOLROOM CLERK) Glucose 143(H) 70 - 99 mg/dL [facility] INSURANCE BILL BUN 7(L) 8 - 27 mg/dL [facility] INSURANCE BILL Creatinine 1.11(H) 0.57 - 1.00 mg/dL [facility] INSURANCE BILL eGFR by CKD-EPI 53(L) >59 mL/min/1.7 3 [facility] INSURANCE BILL BUN/Creatinine Ratio 6(L) 12 - 28 [facility] INSURANCE BILL Sodium 135 134 - 144 mmol/L [facility] INSURANCE BILL Potassium 4.1 3.5 - 5.2 mmol/L [facility] INSURANCE BILL Chloride 96 96 - 106 mmol/L [facility] INSURANCE BILL CO2 23 20 - 29 mmol/L [facility] INSURANCE BILL Calcium 10.1 8.7 - 10.3 mg/dL [facility] INSURANCE BILL Protein Total 7.0 6.0 - 8.5 g/dL [facility] INSURANCE BILL Albumin 5.1(H) 3.8 - 4.8 g/dL [facility] INSURANCE BILL Globulin Total 1.9 1.5 - 4.5 g/dL [facility] INSURANCE BILL Albumin/Globulin Ratio 2.7(H) 1.2 - 2.2 [facility] INSURANCE BILL Bilirubin Total 0.4 0.0 - 1.2 mg/dL [facility] INSURANCE BILL Alkaline Phosphatase 108 44 - 121 IU/L [facility] INSURANCE BILL AST 25 0 - 40 IU/L [facility] INSURANCE BILL ALT 29 0 - 32 IU/L [facility] INSURANCE BILL Comment:FASTING Blood BLOOD SPECIMEN / Unknown 09/22/2022 8:24 AM TOOLROOM CLERK 09/22/2022 Narrative Resulting Agency Comment Lab Testing performed at: [facility] [address] [facility] ??Critical access hospital [id number] Gerald Merchant MD LAB - CHEMISTRY ROBERT MAY [facility] INSURANCE BILL [address] [place] [address] documented in this encounter Visit Diagnoses Diagnosis Rheumatoid arthritis with positive rheumatoid factor, involving unspecified site (HCC)- Primary Long-term use of immunosuppressant medication Encounter for long-term (current) use of other medications Elevated ALT measurement Nonspecific elevation of levels of transaminase or lactic acid dehydrogenase (LDH) Therapeutic drug monitoring Encounter for therapeutic drug monitoring Rheumatoid arthritis with positive rheumatoid factor, involving unspecified site (HCC) documented in this encounter Care Teams Dining Room Tables Set Up Attendant Relationship Specialty Start Date End Date Tanya Jane MD [address] [place] [address] PCP - General 01/05/18 07/09/24 documented as of this encounter
--- OUTSIDE RECORDS SUMMARY | 2024-11-09 23:15 | XMS_ITS | Encounter Summary ---
Author Organization [facility] Address [address] [facility] [place] [address] Care Team Providers Care Fbi Investigator Name Role Phone Tanya Jane MD Primary Care Provider [phone] Encounter Details Date Type Department Care Team (Latest Contact Info) Description 12/15/2022 1:00 PM AMBULATORY TECHNOLOGIST Procedure visit [facility] - [address] [facility], [place] [address] Thalia Dunlap MD [facility] [facility] [address] [place] [address] Nonalcoholic fatty liver disease ; Elevated LFTs Social History Tobacco Use Types Packs/Day Years [...] Progress Notes * Thalia Dunlap MD - 12/15/2022 1:32 PM CST Fibroscan interpretation: I have personally reviewed the Fibroscan report and associated tracings. The calculated Liver Stiffness Measurement (LSM, kPa) indicates that: The probability of advanced liver fibrosis is: LOW TO MODERATE. The loss of ultrasound signal, (controlled attenuation parameter, CAP [dB/m]), indicates that the probability of hepatic steatosis is: SUBSTANTIAL / HIGH . (Elastograms not ideal; a few acceptable. Recommend repeat in 1 year) THALIA DUNLAP MD PhD urgent care physician assistant Director, Division of Gastroenterology and Hepatology Co-Director, [facility] Teaching physician attestation and verification: I attest [...] patients with nonalcoholic fatty liver disease. Gastroenterology 2019;156:4861-3068. Mallorie MS, Luba R, Van Sivakumar ML, [...] FIB4 score (Twanyduke et al. Hepatology Communications 2019;3:9209-4390) or NAFLD Fibrosis score (Leavitt et al. Clinical Gastroenterology and Hepatology 2019;17:0605-4800. from routine clinical data. 3. Liver stiffness [...] change as additional supporting data becomes available. [email or web address] LATORY TECHNOLOGIST documented in this encounter Procedure Notes * Adriana Alexander RN - 12/15/2022 1:14 PM CSTAssociated Order(s): PROC FIBROSCAN Procedure(s): PROC FIBROSCAN Diagnosis: Elevated LFT RN verified patient not , no implanted devices and NPO for prior 3 hours. Vital signs taken, procedure explained and consent signed. Date of Exam: 12/15/2022 Liver Stiffness: (LSM, kPa) median: 7.7 IQR (interquartile range): 1.2 IQR/Median% (ideally < 30%): 16% CAP (controlled attenuation parameter): 323 Technical Difficulty: None Ordering Provider: Dr. Vásquez Syn Phone Fax LATORY TECHNOLOGIST documented in this encounter Plan of Treatment Upcoming Encounters Date Type Department Care Team (Late st Contact Info) Description 01/09/2025 2:00 PM CDT Office Visit [facility] - GI [address] [facility] [place] [address] Thalia Dunlap MD [address] [place] [address] [address] [place] [address] 01/09/2025 2:30 PM CDT Office Visit [facility] - GI [address] [facility], [place] [address] Matias Lewis III, MD [address] [facility] 2L [place] [address] 02/25/2025 2:30 PM CDT Office Visit [facility] - Rheumatology [address] [facility], [place] [address] Lonnie Tai MD [address] [facility] [place] [address] documented as of this encounter Procedures Procedure Name Priority Date/Time Associated Diagnosis Comments [place] LIVER ELASTOGRAPHY Routine 12/15/2022 1:14 PM AMBULATORY TECHNOLOGIST Elevated LFTs documented in this encounter Results * PROC FIBROSCAN (12/15/2022 1:14 PM AMBULATORY TECHNOLOGIST) Narrative Adriana Alexander RN - 12/15/2022 1:14 PM AMBULATORY TECHNOLOGIST Adriana Alexander RN ? 12/15/2022 ??1:26 PM [...] disease- Primary Other chronic nonalcoholic liver disease Elevated LFTs Other abnormal blood chemistry documented in this encounter Care Teams Fbi Investigator Relationship Specialty Start Date End Date Tanya Jane MD [address] [place] [address] PCP - General 01/05/18 07/09/24 documented as of this encounter
--- OUTSIDE RECORDS SUMMARY | 2024-11-09 23:15 | XMS_ITS | Encounter Summary ---
Author Organization [facility] Address [address] [facility] [place] [address] Care Team Providers Care Seals Engraver Name Role Phone Tanya Jane MD Primary Care Provider [phone] Encounter Details Date Type Department Care Team (Latest Contact Info) Description 01/19/2022 Travel Social History Tobacco Use Types Packs/Day [...] Description 01/09/2025 2:00 PM CDT Office Visit [facility] - [address], [place] [address] Thalia Dunlap MD [address] [place] [address] [address] 1 [place] [address] 01/09/2025 2:30 PM CDT Office Visit [facility] - [address], [place] [phone] Matias Lewis III, MD [address] [place] [address] [address] [place] [phone] 02/25/2025 2:30 PM CDT Office Visit [facility] - Rheumatology [address] [facility], [place] [phone] Lonnie Tai MD [address] [facility] [place] [address] documented as of this encounter Visit Diagnoses Not on filedocumented in this encounter Care Teams Seals Engraver Relationship Specialty Start Date End Date Tanya Jane MD [address] [place] [address] [place] [phone] PCP - General 01/05/18 07/09/24 documented as of this encounter
--- OUTSIDE RECORDS SUMMARY | 2024-11-09 23:15 | XMS_ITS | Encounter Summary ---
Author Organization [facility] Address [address] [facility] [place] [address] Care Team Providers Care Teleradiologist Name Role Phone Tanya Jane MD Primary Care Provider [phone] Reason for Referral * Radiology Services (Routine) - Closed Specialty Diagnoses / Procedures Referred By Contac t Referred To Contact Ultrasound Diagnoses Seropositive erosive rheumatoid arthritis (HCC) Encounter for therapeutic drug level monitoring Procedures US ABDOMEN LIMITED Gerald Merchant MD [address] [address] [facility] [address] [place] [address] Referral ID Status Reason Start Date Expiration Date Visits Re quested Visits Authorized [id number] Closed 01/05/2022 01/05/2023 1 1 Reason for Visit * Radiology Services (Routine) - Closed Specialty Diagnoses / Procedures Referred By Contac t Referred To Contact Ultrasound Diagnoses Seropositive erosive rheumatoid arthritis (HCC) Encounter for therapeutic drug level monitoring Procedures US ABDOMEN LIMITED Gerald Merchant MD [address] [facility] 2[address] [facility] [place] [address] [facility] [address] [place] [address] Referral ID Status Reason Start Date Expiration Date Visits Re quested Visits Authorized [id number] Closed 01/05/2022 01/05/2023 1 1 Encounter Details Date Type Department Care Team (Latest Contact Info) Description 01/19/2022 9:51 AM CDT - 01/19/2022 11:59 PM CDT Hospital Encounter [facility] [address] [place] [phone] Gerald Merchant MD [address] [facility] 2L [place] [address] Discharge Disposition: Home or Self Care Social [...] AM CDT documented as of this encounter Medications at Time of Discharge Medication Sig Dispensed Refills Start Date End Date amLODIPine (NORVASC) 5 MG tablet Take 1 (one) tablet by mouth once daily 12/02/2020 fenofibrate (LOFIBRA) 160 MG tablet Take 1 [...] (one) tablet by mouth BID 2 12/18/2017 omeprazole (PRILOSEC) 40 MG capsule Take 1 (one) capsule by mouth daily before breakfast ONETOUCH VERIO test strip Use 1 (one) strip as directed 4 03/09/2018 potassium chloride ER (KLOR-CON) 20 MEQ tablet Take 1 (one) tablet by mouth 2 times daily 07/22/2020 simvastatin (ZOCOR) 20 MG tablet Take 1 (one) tablet by mouth 07/23/2016 aspirin EC (ECOTRIN) 81 MG tablet Take 81 mg by mouth once daily 07/05/2021 09/20/2022 ergocalciferol (DRISDOL) 1.25 MG (00591 UT) capsule Take 1 capsule by mouth every 7 days 09/20/2022 etanercept (ENBREL) 50 MG/ML auto-injector penIndications:Serop ositive erosive rheumatoid arthritis (HCC) Inject 50 (fifty) mg subcutaneously every 7 days 4 mL 5 08/25/2021 02/07/2022 meloxicam (MOBIC) 7.5 MG tabletIndications:Rh eumatoid arthritis with positive rheumatoid factor, involving unspecified site (HCC) Take 1 (one) tablet by mouth once daily as needed 90 tablet 1 08/25/2021 02/28/2022 nitroGLYCERIN (NITROSTAT) 0.4 MG tablet Dissolve 1 (one) tablet under the tongue as directed 07/05/2021 11/14/2023 ONETOUCH DELICA PLUS 30G EXTRA FINE LANCETS Use 1 Each once daily 06/29/20212021 documented as of this encounter Plan of Treatment Upcoming Encounters Date Type Department Care Team (Late st Contact Info) Description 01/09/2025 2:00 PM CDT Office Visit [facility] - [address], [place] [address] Thalia Dunlap MD [address] [place] [address] [address] [place] [address] 01/09/2025 2:30 PM CDT Office Visit [facility] - [address], [place] [address] Matias Lewis III, MD [address] [place] [address] [address] [place] [address] 02/25/2025 2:30 PM CDT Office Visit [facility] - Rheumatology [address] [facility], [place] [address] Lonnie Tai MD [address] [facility] [place] [address] documented as of this encounter Procedures Procedure Name Priority Date/Time Associated Diagnosis Comments US ABDOMEN LIMITED Routine 01/19/2022 10 :45 AM CDT Seropositive erosive rheumatoid arthritis (HCC) Encounter for therapeutic drug level monitoring documented in this encounter Results * US ABDOMEN LIMITED [...] monitoring documented in this encounter Care Teams Teleradiologist Relationship Specialty Start Date End Date Tanya Jane MD [address] [place] [address] PCP - General 01/05/18 07/09/24 documented as of this encounter
--- OUTSIDE RECORDS SUMMARY | 2024-11-09 23:15 | XMS_ITS | Encounter Summary ---
Author Organization [facility] Address [address] [facility] [place] [address] Care Team Providers Care Adjunct Instructor Name Role Phone Tanya Jane MD Primary Care Provider [phone] Reason for Visit * Reason Onset Date Comments MEDICATION REFILL 07/26/2022 Encounter Details Date Type Department Care Team (Late st Contact Info) Description 07/26/2022 Refill [facility] [address] [place] [address], [facility] [place] [place] [phone] Kervin Oates MD [address] [place] [address] [place] [phone] MEDICATION REFILL Social History Tobacco Use Types [...] Miscellaneous Notes * Telephone Encounter - Ayah Richards RN - 07/26/2022 2:16 PM CDT Refill Request Kianna Hill TREVON: 01/05/22 NOV scheduled: 09/20/2022 LRF: 02/09/22 Qty Disp: 4 # of refills: 5 Labs: 11/01/21 Allergies: [...] Office Visit [facility] - GI [address] [place] [address], [place] [phone] Thalia Dunlap MD [facility] [facility] [address] [place] [phone] 01/09/2025 2:30 PM CDT Office Visit [facility] - GI [address] [place] [address], [place] [address] Matias Lewis III, MD [address] [place] [address] [address] [phone] 02/25/2025 2:30 PM CDT Office Visit [facility] - Rheumatology [address] [place] [address], [place] [address] Lonnie Tai MD [address] [facility] [place], [place] [phone] documented as of this encounter Visit Diagnoses Diagnosis Seropositive erosive rheumatoid arthritis (HCC) documented in this encounter Care Teams Adjunct Instructor Relationship Specialty Start Date End Date Tanya Jane MD [address] [place] [address] [place] [address] PCP - General 01/05/18 07/09/24 documented as of this encounter
--- OUTSIDE RECORDS SUMMARY | 2024-11-09 23:15 | XMS_ITS | Encounter Summary ---
Author Organization [facility] Address [address] [facility] [address] Care Team Providers Care Beef Cattle Farm Worker Name Role Phone Tanya Jane MD Primary Care Provider [phone] Reason for Visit * Reason Onset Date Comments MEDICATION REFILL 09/19/2022 Encounter Details Date Type Department Care Team (Late st Contact Info) Description 09/19/2022 Refill [facility] [address] [place] [address], [facility] [place] [phone] Kervin Oates MD [address] [place] [address] [place] [phone] MEDICATION REFILL Social History Tobacco Use Types [...] Telephone Encounter - Ayah Richards RN - 09/19/2022 1:33 PM CST Refill Request Kianna Hill TREVON: 01/05/22 NOV scheduled: 09/20/2022 LRF: 07/26/22 Qty Disp: 4 # of refills: 1 Allergies: Allergies Allergen Reactions ??? Codeine Nausea and/or Vomiting Pended Medication Order: Requested Prescriptions Pending Prescriptions Disp Refills ??? etanercept (Enbrel) 50 MG/ML auto-injector pen 4 mL 0 Sig: Inject 50 (fifty) mg subcutaneously every 7 days EY'S AGENT documented in this encounter Plan of Treatment Upcoming Encounters Date Type Department Care Team (Late st Contact Info) Description 01/09/2025 2:00 PM CDT Office Visit [facility] - GI [address] [place] [address], [place] [address] Thalia Dunlap MD [address] [place] [address] [address] [place] [address] 01/09/2025 2:30 PM CDT Office Visit [facility] - GI [address] [place] [address], [place] [phone] Matias Lewis III, MD [address] [place] [address] [address] [phone] 02/25/2025 2:30 PM CDT Office Visit [facility] - Rheumatology [address] [place] [address], [place] [address] Lonnie Tai MD [address] [facility] [place] [address] documented as of this encounter Visit Diagnoses Diagnosis Seropositive erosive rheumatoid arthritis (HCC) documented in this encounter Care Teams Beef Cattle Farm Worker Relationship Specialty Start Date End Date Tanya Jane MD [address] [place] [address] PCP - General 01/05/18 07/09/24 documented as of this encounter
--- OUTSIDE RECORDS SUMMARY | 2024-11-09 23:15 | XMS_ITS | Encounter Summary ---
Author Organization [facility] Address [address] [facility] [place] [address] Care Team Providers Care Auto Fleet Maintenance Manager Name Role Phone Tanya Jane MD Primary Care Provider Reason for Visit * Reason Comments Arthritis RA Encounter Details Date Type Department Care Team (Late st Contact Info) Description 08/04/2021 3:00 PM CDT Office Visit [facility] Rheumatology [facility] [place] [phone] Lisette Choe MD No info available Seropositive erosive rheumatoid arthritis (HCC) (Primary Dx); Encounter for therapeutic drug level monitoring; High risk medications (not anticoagulants) long-term use Social History Tobacco Use Types Packs/Day [...] Sign Reading Time Taken Comments Blood Pressure 134/84 08/04/2021 3:07 PM CDT Pulse 64 08/04/2021 3:07 PM CDT Temperature 36.8 ??C (98.3 ??F) 08/04/2021 3:07 PM CD T Respiratory Rate - - Oxygen Saturation - - Inhaled Oxygen Concentration - - Weight 78.5 kg (173 lb) 08/04/2021 3:07 PM CDT Height 167.6 cm (5' 6 ) 08/04/2021 3:07 PM CDT Body Mass Index 27.92 08/04/2021 3:07 PM CDT documented in this encounter Patient Instructions * Patient Instructions* Lisette Choe MD - 08/04/2021 3:45 PM CDT Please get labs done JUAN (orders sent to [facility]) Start prednisone taper for 20 days Stop leflunomide Continue meloxicam 7.5 mg daily Continue Enbrel injection under skin once a week Get Shingrix vaccine Follow up in [address] Choe and Dr. Merchant (Monday PM) If you need to change or cancel your Rheumatology appointment - At the [facility] ([facility]) at [facility] [facility], call [phone]. If you need a refill request, have your pharmacy fax a request to [phone]. If you need to leave a message for Dr. Choe, you can send her an electronic message via [employer] at [phone]. Her office FAX number is [phone]. For after hours emergency only, you can call the [facility] pipe cleaning machine operator at [phone] and ask for the Scrap Worker logging contractor to be paged. documented in this encounter Progress Notes * Lisette Choe MD - 08/04/2021 2:57 PM CDT [facility] Rheumatology Followup Clinic Visit Referring Physician: Provider Unknown No address on file PCP: Tanya Jane MD Chief Complaint Patient presents with ??? Arthritis RA HPI: 70 year old female with seropositive erosive RA (+RF, +CCP ab), osteopenia, DM, hypothyroidism. Last seen in clinic on 05/05/21. At that time arthritis continued on Humira. Since then, she continued to have concerning drug site reaction to Humira so she was switched to Enbrel. Has only had one injection so far but tolerated it, has not noticed much difference yet. Pain,AM stiffness 1+hr in 2,3 MCPs BL. Symptoms are stable. Current meds: Enbrel 50 mg SC Q7D (07/2021 - ) Meloxicam 7.5 mg daily DC'd: LEF 20 mg daily (01/2017 - 11/2020, stopped 2/2 elevated LFTs) Humira 40 mg SC Q14D [...] HX APPENDECTOMY ??? Ovarian Cyst Removal ??? HI REPAIR OF NASAL SEPTUM 1970 to help [...] Outpatient Medications Medication Sig Dispense Refill ??? amLODIPine (NORVASC) 5 MG tablet Take 5 mg by mouth once daily ??? aspirin EC (ECOTRIN) 81 MG tablet Take 81 mg by mouth once daily ??? ergocalciferol (DRISDOL) 1.25 MG (89641 UT) capsule Take 1 capsule by mouth every 7 days ??? etanercept (ENBREL) 50 MG/ML auto-injector pen Inject 50 (fifty) mg subcutaneously every 7 days4 mL 0 ??? fenofibrate (LOFIBRA) 160 MG tablet Take 160 mg by mouth. ??? GLIPIZIDE XL 10 MG tablet Take 10 mg by mouth 2 times daily 3 ??? hydroCHLOROthiazide (HYDRODIURIL) 25 MG tablet Take 1 tablet by mouth once daily ??? isosorbide mononitrate CR 24hr (IMDUR) 30 MG tablet Take 1 tablet by mouth once daily ??? JANUVIA 100 MG tablet Take 100 mg by mouth once daily ??? levothyroxine (SYNTHROID) 75 MCG tablet Take 75 mcg by mouth DAILY. ??? losartan (COZAAR) 100 MG tablet Take 100 mg by mouth once daily 4 ??? meloxicam (MOBIC) 7.5 MG tablet Take 1 tablet by mouth once daily as needed 90 tablet 1 ??? metFORMIN (GLUCOPHAGE) 1000 MG tablet Take 1 tablet by mouth BID. 2 ??? nitroGLYCERIN (NITROSTAT) 0.4 MG tablet Dissolve 1 tablet under the tongue as directed ??? omeprazole (PRILOSEC) 40 MG capsule Take 40 mg by mouth daily before breakfast ??? ONETOUCH DELICA PLUS 30G EXTRA FINE LANCETS Use 1 Each once daily ??? ONETOUCH VERIO test strip Use 1 strip as directed 4 ??? potassium chloride ER (KLOR-CON) 20 MEQ tablet Take 20 mEq by mouth 2 times daily ??? predniSONE (DELTASONE) 5 MG tablet Take 6 (six) tablets by mouth once daily for 5 days, THEN 3 (three) tablets once daily for 5 days, THEN 2 (two) tablets once daily for 5 days, THEN 1 (one) tablet once daily for 5 days. 60 tablet 0 ??? simvastatin (ZOCOR) 20 MG tablet Take 20 mg by mouth. No current facility-administered medications for this visit. Allergies: Allergies Allergen Reactions ??? Codeine Nausea and/or Vomiting Physical Exam: BP 134/84 (BP SITE: RIGHT ARM, BP POSITION: SITTING, BP CUFF SIZE: 11) Pulse 64 Temp 98.3 ??F (36.8??C) (Oral) Ht 5' 6 (1.676 m) Wt 173 lb (78.5 kg) BMI 27.92 kg/m2 General: normal, appears stated age Skin: Skin color, texture, turgor normal. no erythema, warmth, tenderness or drainage HEENT: Normocephalic, without obvious abnormality, atraumatic conjunctivae/corneas clear. EOMI, no oral or nasal ulcers, moist mucus membranes, supple neck Lymphatic: No cervical, supraclavicular adenopathy Back: symmetric, no curvature Chest/Lungs: clear to auscultation bilaterally, normal respiratory effort Heart: RRR, normal S1 and S2, no murmur, no rub Abdomen: soft, non-tender. Bowel sounds normal. Neurologic: Grossly normal cranial nerves Musculoskeletal Exam: Hands S1T1 2, 3MCP MS 5/5 in all extremities [...] periosteal reaction, or bone destruction ?? DEXA 05/13/21: BONE MINERAL DENSITY (BMD) left femoral neck: Normal; T-score -0.1 10 year risk for: Major osteoporotic - 9.4% Hip Fracture - 0.5% DEXA ([facility]) 02/07/17: L spine BMD 0.977; T-score -0.6 L Femoral neck BMD: 0.864; T-score +0.5 R Femoral neck BMD0.787; T-score -0.6 ?? Assessment & Plan: 1. Seropositive erosive rheumatoid arthritis 2. Encounter for therapeutic drug level monitoring Kianna Hill is a 70 year old female with seropositive erosive RA (+RF, +CCP ab), osteopenia, DM,hypothyroidism who returns for follow up. Had drug site reaction to Humira even on citrate free version, so switched to Enbrel. Has had one dose so far, tolerated it well, will continue to monitor. Still complaining of some intermittent pain/stiffness in MCPs, will also monitor if this changes but will also start prednisone taper. - Labs as below - Continue Enbrel 50 mg SC Q7D - Continue meloxicam 7.5 mg daily - Start prednisone taper as below (20 days) - Recommend to get shingles vaccines with PCP if not done already RTC in 4 mo Lisette Choe MD Rheumatology Fellow Patient seen and examined with Dr. Merchant. The following were ordered during this visit: Orders Placed This Encounter ??? predniSONE (DELTASONE) 5 MG tablet Sig: Take 6 (six) tablets by mouth once daily for 5 days, THEN 3 (three) tablets once daily for 5 days, THEN 2 (two) tablets once daily for 5 days, THEN 1 (one) tablet once daily for 5 days. Dispense: 60 tablet Refill: 0 Associated attestation - Gerald Merchant MD - 08/10/2021 2:11 PM CDT Patient was seen and examined by me and I agree with fellow's note including assessment/plan. ICD-10-CM 1. Seropositive erosive rheumatoid arthritis M05.80 2. Encounter for therapeutic drug level monitoring Z51.81 3. High risk medications (not anticoagulants) long-term use Z79.899 70-year-old lady with seropositive erosive rheumatoid arthritis(positive rheumatoid factor, positive ACPA) currently on Enbrel which was recently started after switch from Humira as she was having injection site reaction with Humira. Patient is reporting pain and stiffness in her MCPs. Physical exam with swelling and mild synovitis bilateral second third MCPs. Patient has active disease as evident on physical exam showing synovitis of MCPs. As patient recently started Enbrel so we will continue it for now but will give her a short course of prednisone for acute symptomatic relief as per Dr. Choe's's note. Again counseled the patient to get shingles vaccine as we might need to consider Daren inhibitors in future. documented in this encounter Plan of Treatment Upcoming Encounters Date Type Department Care Team (Late st Contact Info) Description 01/09/2025 2:00 PM CDT Office Visit [facility] - [address], [facility] [place] [address] Thalia Dunlap MD [address] [place] [address] [address] [place] [address] 01/09/2025 2:30 PM CDT Office Visit [facility] - [address], [place] [phone] Matias Lewis III, MD [address] [place] [address] [address] [place] [phone] 02/25/2025 2:30 PM CDT Office Visit [facility] - Rheumatology [address] [facility], [facility] [place] [address] Lonnie Tai MD [address] [facility] [place] [address] documented as of this encounter Visit Diagnoses Diagnosis Seropositive erosive rheumatoid arthritis (HCC)- Primary Encounter for therapeutic drug level monitoring Encounter for therapeutic drug monitoring High risk medications (not anticoagulants) long-term use Encounter for long-term (current) use of other medications documented in this encounter Care Teams Auto Fleet Maintenance Manager Relationship Specialty Start Date End Date Tanya Jane MD [address] [place] [address] [place] [address] PCP - General 01/05/18 07/09/24 documented as of this encounter
--- OUTSIDE RECORDS SUMMARY | 2024-11-09 23:15 | XMS_ITS | Encounter Summary ---
Author Organization [facility] Address [address] [facility] [place] [address] Care Team Providers Care Stone Finisher Name Role Phone Tanya Jane MD Primary Care Provider [phone] Encounter Details Date Type Department Care Team (Latest Contact Info) Description 12/15/2022 2:10 PM BOX BLANK MACHINE FEEDER - 12/15/2022 2:26 PM BOX BLANK MACHINE FEEDER Hospital Encounter [facility] DIAGNOSTIC RAD OP [address] [place] [address] Gerald Merchant MD [address] [place] [phone] Discharge Disposition: Home or Self Care Social [...] 07/23/2016 vitamin D, ergocalciferol, (Drisdol) 1.25 MG (82460 UT) capsule Take 1 (one) capsule by [...] Visit [facility] - GI [address] [place] [phone] Thalia Dunlap MD [address] [facility] [address] [place] [phone] 01/09/2025 2:30 PM CDT Office Visit [facility] - GI [address] [place] [address], [place] [phone] Matias Lewis III, MD [facility] [facility] [address]L [place] [phone] 02/25/2025 2:30 PM CDT Office Visit [facility] - Rheumatology [address] [place] [address], [place] [phone] Lonnie Tai MD [address] [facility] [place], [place] [phone] documented as of this encounter Procedures Procedure Name Priority Date/Time Associated Diagnosis Comments XR FOOT RIGHT 3VW OR MORE Routine 12/15/2022 2:23 PM BOX BLANK MACHINE FEEDER Rheumatoid arthritis with positive rheumatoid factor, involving unspecified site (HCC) XR FOOT LEFT 3VW OR MORE Routine 12/15/2022 2:23 PM BOX BLANK MACHINE FEEDER Rheumatoid arthritis with positive rheumatoid factor, involving unspecified site (HCC) XR HAND RIGHT 3VW OR MORE Routine 12/15/2022 2:23 PM BOX BLANK MACHINE FEEDER Rheumatoid arthritis with positive rheumatoid factor, involving unspecified site (HCC) XR HAND LEFT 3VW OR MORE Routine 12/15/2022 2:23 PM BOX BLANK MACHINE FEEDER Rheumatoid arthritis with positive rheumatoid factor, involving unspecified site (HCC) XR WRIST RIGHT 3VW OR MORE Routine 12/15/2022 2:23 PM BOX BLANK MACHINE FEEDER Rheumatoid arthritis with positive rheumatoid factor, involving unspecified site (HCC) XR WRIST LEFT 3VW OR MORE Routine 12/15/2022 2:23 PM BOX BLANK MACHINE FEEDER Rheumatoid arthritis with positive rheumatoid factor, involving unspecified site (HCC) XR FOREARM LEFT 2VW OR MORE Routine 12/15/2022 2:23 PM BOX BLANK MACHINE FEEDER Rheumatoid arthritis with positive rheumatoid factor, involving unspecified site (HCC) documented in this encounter Results * XR FOOT RIGHT 3VW OR MORE (12/15/2022 2:23 PM BOX BLANK MACHINE FEEDER) Anatomical Region Laterality Modality Ankle / Foot Radiographic Adelina ging 12/15/2022 2:45 PM BOX BLANK MACHINE FEEDER Impressions 12/15/2022 2:59 PM BOX BLANK MACHINE FEEDER Impression: 1. Right hand and wrist: Moderate [...] 12/15/2022 2:59 PM Narrative 12/15/2022 2:59 PM BOX BLANK MACHINE FEEDER PROCEDURE: ??XR FOREARM LEFT 2VW, XR FOOT RIGHT 3VW OR MORE, XR FOOT LEFT 3VW OR MORE, XR WRIST RIGHT 3VW OR MORE, XR WRIST LEFT 3VW OR MORE, XR HAND RIGHT 3VW OR MORE, XR HAND LEFT 3VW OR MORE, DATE/TIME OF EXAM: ??12/15/2022 2:23 PM, LOCATION ??[facility] INDICATION: M05.9: Rheumatoid arthritis with positive rheumatoid factor, involving unspecified site (CMS/HCC) ADDITIONAL CLINICAL INFORMATION: Ordering Provider Reason For [...] MORE, DATE/TIME OF EXAM:12/15/2022 2:23 PM, LOCATION [facility] INDICATION: M05.9: Rheumatoid arthritis with positive rheumatoid factor, involving unspecified site ([facility]) ADDITIONAL CLINICAL INFORMATION: Ordering Provider Reason For [...] LEFT 3VW OR MORE (12/15/2022 2:23 PM BOX BLANK MACHINE FEEDER) Anatomical Region Laterality Modality Ankle / Foot Radiographic Adelina ging 12/15/2022 2:45 PM BOX BLANK MACHINE FEEDER Impressions 12/15/2022 2:59 PM BOX BLANK MACHINE FEEDER Impression: 1. Right hand and wrist: Moderate [...] 12/15/2022 2:59 PM Narrative 12/15/2022 2:59 PM BOX BLANK MACHINE FEEDER PROCEDURE: ??XR FOREARM LEFT 2VW, XR FOOT RIGHT 3VW OR MORE, XR FOOT LEFT 3VW OR MORE, XR WRIST RIGHT 3VW OR MORE, XR WRIST LEFT 3VW OR MORE, XR HAND RIGHT 3VW OR MORE, XR HAND LEFT 3VW OR MORE, DATE/TIME OF EXAM: ??12/15/2022 2:23 PM, LOCATION ??[facility] INDICATION: M05.9: Rheumatoid arthritis with positive rheumatoid factor, involving unspecified site ([facility]) ADDITIONAL CLINICAL INFORMATION: Ordering Provider Reason For [...] MORE, DATE/TIME OF EXAM:12/15/2022 2:23 PM, LOCATION [facility] INDICATION: M05.9: Rheumatoid arthritis with positive rheumatoid factor, involving unspecified site ([facility]) ADDITIONAL CLINICAL INFORMATION: Ordering Provider Reason For [...] RIGHT 3VW OR MORE (12/15/2022 2:23 PM BOX BLANK MACHINE FEEDER) Anatomical Region Laterality Modality Wrist / Hand Radiographic Adelina ging 12/15/2022 2:45 PM BOX BLANK MACHINE FEEDER Impressions 12/15/2022 2:59 PM BOX BLANK MACHINE FEEDER Impression: 1. Right hand and wrist: Moderate [...] 12/15/2022 2:59 PM Narrative 12/15/2022 2:59 PM BOX BLANK MACHINE FEEDER PROCEDURE: ??XR FOREARM LEFT 2VW, XR FOOT RIGHT 3VW OR MORE, XR FOOT LEFT 3VW OR MORE, XR WRIST RIGHT 3VW OR MORE, XR WRIST LEFT 3VW OR MORE, XR HAND RIGHT 3VW OR MORE, XR HAND LEFT 3VW OR MORE, DATE/TIME OF EXAM: ??12/15/2022 2:23 PM, LOCATION ??[facility] INDICATION: M05.9: Rheumatoid arthritis with positive rheumatoid factor, involving unspecified site ([facility]) ADDITIONAL CLINICAL INFORMATION: Ordering Provider Reason For [...] MORE, DATE/TIME OF EXAM:12/15/2022 2:23 PM, LOCATION [facility] INDICATION: M05.9: Rheumatoid arthritis with positive rheumatoid factor, involving unspecified site ([facility]) ADDITIONAL CLINICAL INFORMATION: Ordering Provider Reason For [...] LEFT 3VW OR MORE (12/15/2022 2:23 PM BOX BLANK MACHINE FEEDER) Anatomical Region Laterality Modality Wrist / Hand Radiographic Adelina ging 12/15/2022 2:45 PM BOX BLANK MACHINE FEEDER Impressions 12/15/2022 2:59 PM BOX BLANK MACHINE FEEDER Impression: 1. Right hand and wrist: Moderate [...] 12/15/2022 2:59 PM Narrative 12/15/2022 2:59 PM BOX BLANK MACHINE FEEDER PROCEDURE: ??XR FOREARM LEFT 2VW, XR FOOT RIGHT 3VW OR MORE, XR FOOT LEFT 3VW OR MORE, XR WRIST RIGHT 3VW OR MORE, XR WRIST LEFT 3VW OR MORE, XR HAND RIGHT 3VW OR MORE, XR HAND LEFT 3VW OR MORE, DATE/TIME OF EXAM: ??12/15/2022 2:23 PM, LOCATION ??[facility] INDICATION: M05.9: Rheumatoid arthritis with positive rheumatoid factor, involving unspecified site ([facility]) ADDITIONAL CLINICAL INFORMATION: Ordering Provider Reason For [...] MORE, DATE/TIME OF EXAM:12/15/2022 2:23 PM, LOCATION [facility] INDICATION: M05.9: Rheumatoid arthritis with positive rheumatoid factor, involving unspecified site ([facility]) ADDITIONAL CLINICAL INFORMATION: Ordering Provider Reason For [...] RIGHT 3VW OR MORE (12/15/2022 2:23 PM BOX BLANK MACHINE FEEDER) Anatomical Region Laterality Modality Wrist / Hand Radiographic Adelina ging 12/15/2022 2:45 PM BOX BLANK MACHINE FEEDER Impressions 12/15/2022 2:59 PM BOX BLANK MACHINE FEEDER Impression: 1. Right hand and wrist: Moderate [...] 12/15/2022 2:59 PM Narrative 12/15/2022 2:59 PM BOX BLANK MACHINE FEEDER PROCEDURE: ??XR FOREARM LEFT 2VW, XR FOOT RIGHT 3VW OR MORE, XR FOOT LEFT 3VW OR MORE, XR WRIST RIGHT 3VW OR MORE, XR WRIST LEFT 3VW OR MORE, XR HAND RIGHT 3VW OR MORE, XR HAND LEFT 3VW OR MORE, DATE/TIME OF EXAM: ??12/15/2022 2:23 PM, LOCATION ??[facility] INDICATION: M05.9: Rheumatoid arthritis with positive rheumatoid factor, involving unspecified site ([facility]) ADDITIONAL CLINICAL INFORMATION: Ordering Provider Reason For [...] MORE, DATE/TIME OF EXAM:12/15/2022 2:23 PM, LOCATION [facility] INDICATION: M05.9: Rheumatoid arthritis with positive rheumatoid factor, involving unspecified site ([facility]) ADDITIONAL CLINICAL INFORMATION: Ordering Provider Reason For [...] LEFT 3VW OR MORE (12/15/2022 2:23 PM BOX BLANK MACHINE FEEDER) Anatomical Region Laterality Modality Wrist / Hand Radiographic Adelina ging 12/15/2022 2:45 PM BOX BLANK MACHINE FEEDER Impressions 12/15/2022 2:59 PM BOX BLANK MACHINE FEEDER Impression: 1. Right hand and wrist: Moderate [...] 12/15/2022 2:59 PM Narrative 12/15/2022 2:59 PM BOX BLANK MACHINE FEEDER PROCEDURE: ??XR FOREARM LEFT 2VW, XR FOOT RIGHT 3VW OR MORE, XR FOOT LEFT 3VW OR MORE, XR WRIST RIGHT 3VW OR MORE, XR WRIST LEFT 3VW OR MORE, XR HAND RIGHT 3VW OR MORE, XR HAND LEFT 3VW OR MORE, DATE/TIME OF EXAM: ??12/15/2022 2:23 PM, LOCATION ??[facility] INDICATION: M05.9: Rheumatoid arthritis with positive rheumatoid factor, involving unspecified site ([facility]) ADDITIONAL CLINICAL INFORMATION: Ordering Provider Reason For [...] MORE, DATE/TIME OF EXAM:12/15/2022 2:23 PM, LOCATION [facility] INDICATION: M05.9: Rheumatoid arthritis with positive rheumatoid factor, involving unspecified site ([facility]) ADDITIONAL CLINICAL INFORMATION: Ordering Provider Reason For [...] XR FOREARM LEFT 2VW (12/15/2022 2:23 PM BOX BLANK MACHINE FEEDER) Anatomical Region Laterality Modality Upper Extremity Radiographic Adelina ging 12/15/2022 2:45 PM BOX BLANK MACHINE FEEDER Impressions 12/15/2022 2:59 PM BOX BLANK MACHINE FEEDER Impression: 1. Right hand and wrist: Moderate [...] 12/15/2022 2:59 PM Narrative 12/15/2022 2:59 PM BOX BLANK MACHINE FEEDER PROCEDURE: ??XR FOREARM LEFT 2VW, XR FOOT RIGHT 3VW OR MORE, XR FOOT LEFT 3VW OR MORE, XR WRIST RIGHT 3VW OR MORE, XR WRIST LEFT 3VW OR MORE, XR HAND RIGHT 3VW OR MORE, XR HAND LEFT 3VW OR MORE, DATE/TIME OF EXAM: ??12/15/2022 2:23 PM, LOCATION ??[facility] INDICATION: M05.9: Rheumatoid arthritis with positive rheumatoid factor, involving unspecified site ([facility]) ADDITIONAL CLINICAL INFORMATION: Ordering Provider Reason For [...] MORE, DATE/TIME OF EXAM:12/15/2022 2:23 PM, LOCATION [facility] INDICATION: M05.9: Rheumatoid arthritis with positive rheumatoid factor, involving unspecified site ([facility]) ADDITIONAL CLINICAL INFORMATION: Ordering Provider Reason For [...] Gerald Merchant MD DIAGNOSTIC IMAGING [facility] [employer] documented in this encounter Visit Diagnoses Diagnosis Rheumatoid arthritis with positive rheumatoid factor, involving unspecified site (HCC) documented in this encounter Care Teams Stone Finisher Relationship Specialty Start Date End Date Tanya Jane MD [address] [place] [address] [place] [address] PCP - General 01/05/18 07/09/24 documented as of this encounter
--- OUTSIDE RECORDS SUMMARY | 2024-11-09 23:15 | XMS_ITS | Encounter Summary ---
Author Organization [facility] Address [address] [facility] [place] [address] Care Team Providers Care Retort Cooler Name Role Phone Tanya Jane MD Primary Care Provider [phone] Reason for Visit * Reason Onset Date Comments Rx Authorization 07/26/2021 Enbrel approval Encounter Details Date Type Department Care Team (Late Contact Info) Description 07/26/2021 Telephone [facility] [address] [place] [phone] Lisette Choe MD No info available Rx Authorization (Enbrel approval) Social History Tobacco Use Types Packs/Day Years [...] Telephone Encounter - Ayah Reyes RN - 07/26/2021 10:54 AM CDT PA completed via [employer] portal with [employer] part D. Received notification of approval for Enbrel 50mg/ml pen, 4 pens/28 days, effective through 10/22/2022. [employer] Blank: [id number] Reference #: [id number] documented in this encounter Plan of Treatment Upcoming Encounters Date Type Department Care Team (Late Contact Info) Description 01/09/2025 2:00 PM CDT Office Visit [facility] - [facility] [address] [facility], [place] [address] Thalia Dunlap MD [address] [facility] [address] [place] [phone] 01/09/2025 2:30 PM CDT Office Visit [facility] - [facility] [address] [facility], [place] [phone] Matias Lewis III, MD [address] [facility] [address]L [place] [phone] 02/25/2025 2:30 PM CDT Office Visit [facility] - Rheumatology [address] [facility], [place] [phone] Lonnie Tai MD [address] [facility] [place] [address] documented as of this encounter Visit Diagnoses Not on filedocumented in this encounter Care Teams Retort Cooler Relationship Specialty Start Date End Date Tnaya Jane MD [address] [place] [address] [place] [address] PCP - General 01/05/18 07/09/24 documented as of this encounter
--- OUTSIDE RECORDS SUMMARY | 2024-11-09 23:15 | XMS_ITS | Encounter Summary ---
Author Organization [facility] Address [address] [facility] [place] [address] Care Team Providers Care Product Advisor Name Role Phone Tanya Jane MD Primary Care Provider [phone] Eliana Mcneal Primary Care Provider [phone] Encounter Details Date Type Department Care Team (Late Contact Info) Description 01/04/2022 Telephone [facility] - Third Level [address] [place] [address], [place] [address] Lisette Choe MD No info available Social History Tobacco Use Types Packs/Day Years [...] encounter Miscellaneous Notes * Telephone Encounter - Soco Victor - 01/04/2022 8:05 AM CDT Current Provider name: Dr. Lisette Choe Reason for call: Ms. Kianna Hill is not feeling well and can't make her appt tomorrow. Can this appt be converted to TEL appt. She doesn't have VID capabilities. Please advise and I will call her back if we can and/or to reschedule appt. Patient Call Back number: [phone] documented in this encounter Plan of Treatment Upcoming Encounters Date Type Department Care Team (Late Contact Info) Description 01/09/2025 2:00 PM CDT Office Visit [facility] [address] [facility], [place] [address] Thalia Dunlap MD [address] [facility] [address] [place] [phone] 01/09/2025 2:30 PM CDT Office Visit [facility] [address] [facility], [place] [address] Matias Lewis III, MD [address] [facility] 2L [place] [address] 02/25/2025 2:30 PM CDT Office Visit [facility] - Rheumatology [address] [facility], [place] [address] Lonnie Tai MD [address] [facility] [place] [address] documented as of this encounter Visit Diagnoses Not on filedocumented in this encounter Care Teams Product Advisor Relationship Specialty Start Date End Date Tanya Jane MD [address] [place] [address] [place] [phone] PCP - General 01/05/18 07/09/24 Eliana Mcneal [address] [place] [phone] PCP - General 07/10/24 documented as of this encounter
--- OUTSIDE RECORDS SUMMARY | 2024-11-09 23:15 | XMS_ITS | Encounter Summary ---
Author Organization [facility] Address [address] [facility] [place] [address] Care Team Providers Care Terminal Superintendent Name Role Phone Tanya Jane MD Primary Care Provider [phone] Encounter Details Date Type Department Care Team ([facility] Contact Info) Description 05/14/2021 Orders Only [facility] [address] [place] [phone] Lisette Choe MD No info available Seropositive [...] Upcoming Encounters Date Type Department Care Team ([facility] Contact Info) Description 01/09/2025 2:00 PM CDT Office Visit [facility] [address] [place] [phone] Thalia Dunlap MD [address] [place] [address] [address] [place] [phone] 01/09/2025 2:30 PM CDT Office Visit [facility] [address] [place] [address], [place] [phone] Matias Lewis III, MD [address] [facility] 2L [place] [phone] 02/25/2025 2:30 PM CDT Office Visit [facility] - Rheumatology [address] [facility], [place] [phone] Lonnie Tai MD [address] [facility] [place] [address] documented as of this encounter Procedures Procedure Name Priority Date/Time Associated Diagnosis Comments C-REACTIVE PROTEIN Routine 11/01/2021 8: 51 AM STEAM HAMMER OPERATOR Seropositive erosive rheumatoid arthritis (HCC) Encounter for therapeutic drug monitoring ERYTHROCYTE SEDIMENTATION RATE Routine 11/01/2021 8:51 AM STEAM HAMMER OPERATOR Seropositive erosive rheumatoid arthritis (HCC) Encounter for therapeutic drug monitoring CBC W AUTO DIFFERENTIAL Routine 11/01/2021 8:51 AM STEAM HAMMER OPERATOR Seropositive erosive rheumatoid arthritis (HCC) Encounter for therapeutic drug monitoring COMPREHENSIVE METABOLIC PANEL Routine 11/01/2021 8:51 AM STEAM HAMMER OPERATOR Seropositive erosive rheumatoid arthritis (HCC) Encounter for therapeutic drug monitoring documented in this encounter Results * ERYTHROCYTE SEDIMENTATION RATE (11/01/2021 8:51 AM STEAM HAMMER OPERATOR) Erythrocyte Sedimentation Rate Westergren 2 0 - 40 mm/hr [facility] INSURANCE BILL Comment:FASTING Blood BLOOD SPECIMEN / Unknown 11/01/2021 8:51 AM STEAM HAMMER OPERATOR 11/01/2021 Narrative Resulting Agency Comment Lab Testing performed at: [facility] [address] [facility] [id number] Lisette Choe MD LAB - HEMATOLOGY ORD ERABLES [facility] INSURANCE BILL [address] [place] [address] * C-REACTIVE PROTEIN (11/01/2021 8:51 AM STEAM HAMMER OPERATOR) C-Reactive Protein 3 0 - 10 mg/L [facility] INSURANCE BILL Comment:FASTING Blood BLOOD SPECIMEN / Unknown 11/01/2021 8:51 AM STEAM HAMMER OPERATOR 11/01/2021 Narrative Resulting Agency Comment Lab Testing performed at: [facility] [address] ??[facility] [phone] Lisette Choe MD LAB - CHEMISTRY ROBERT MAY [facility] INSURANCE BILL [address] [place] [address] * (ABNORMAL) COMPREHENSIVE METABOLIC PANEL (11/01/2021 8:51 AM STEAM HAMMER OPERATOR) Glucose 264(H) 65 - 99 mg/dL [facility] INSURANCE BILL BUN 9 8 - 27 mg/dL [facility] INSURANCE BILL Creatinine 1.12(H) 0.57 - 1.00 mg/dL [facility] INSURANCE BILL eGFR by MDRD 50(L) >59 mL/min/1. 73 [facility] INSURANCE BILL eGFR by MDRD 58(L) >59 mL/min/1. 73 [facility] INSURANCE BILL Comment: In accordance with recommendations from the NKF-ASN Task force, ??[facility] is in the process of updating its eGFR calculation to the ??2020 CKD-EPI creatinine equation that estimates kidney function ??without a race variable. BUN/Creatinine Ratio 8(L) 12 - 28 [facility] INSURANCE BILL Sodium 131(L) 134 - 144 mmol/L [facility] INSURANCE BILL Potassium 4.2 3.5 - 5.2 mmol/L [facility] INSURANCE BILL Chloride 96 96 - 106 mmol/L [facility] INSURANCE BILL CO2 21 20 - 29 mmol/L [facility] INSURANCE BILL Calcium 9.6 8.7 - 10.3 mg/dL [facility] INSURANCE BILL Protein Total 6.5 6.0 - 8.5 g/dL [facility] INSURANCE BILL Albumin 4.4 3.8 - 4.8 g/dL [facility] INSURANCE BILL Globulin Total 2.1 1.5 - 4.5 g/dL [facility] INSURANCE BILL Albumin/Globulin Ratio 2.1 1.2 - 2.2 [facility] INSURANCE BILL Bilirubin Total 0.3 0.0 - 1.2 mg/dL [facility] INSURANCE BILL Alkaline Phosphatase 162(H) 44 - 121 IU/L [facility] INSURANCE BILL Comment:Please note refere nce interval change AST 22 0 - 40 IU/L [facility] INSURANCE BILL ALT 38(H) 0 - 32 IU/L [facility] INSURANCE BILL Comment:FASTING Blood BLOOD SPECIMEN / Unknown 11/01/2021 8:51 AM STEAM HAMMER OPERATOR 11/01/2021 Narrative Resulting Agency Comment Lab Testing performed at: [facility] ??[facility] [id number] Lisette Choe MD LAB - CHEMISTRY ROBERT MAY [facility] INSURANCE BILL [address] [place] [address] * CBC WITH DIFFERENTIAL (11/01/2021 8:51 AM STEAM HAMMER OPERATOR) WBC 7.5 3.4 - 10.8 x10E3/uL [facility] INSURANCE BILL RBC 4.55 3.77 - 5.28 x10E6/uL [facility] INSURANCE BILL Hemoglobin 12.5 11.1 - 15.9 g/dL [facility] INSURANCE BILL Hematocrit 39.1 34.0 - 46.6 % [facility] INSURANCE BILL MCV 86 79 - 97 fL [facility] INSURANCE BILL MCH 27.5 26.6 - 33.0 pg [facility] INSURANCE BILL MCHC 32.0 31.5 - 35.7 g/dL [facility] INSURANCE BILL RDW 12.9 11.7 - 15.4 % [facility] INSURANCE BILL Platelet Count 253 150 - 450 x10E3/uL [facility] INSURANCE BILL Granulocytes % 63 Not Estab. % [facility] INSURANCE BILL Lymphocytes % 25 Not Estab. % [facility] INSURANCE BILL Monocytes % 7 Not Estab. % [facility] INSURANCE BILL Eosinophils % 2 Not Estab. % [facility] INSURANCE BILL Basophils % 2 Not Estab. % [facility] INSURANCE BILL Immature Cells NOT NEEDED [facility] INSURANCE BILL Comment:Ancillary determined the test is not needed. Granulocytes Absolute 4.7 1.4 - 7.0 x10E3/uL [facility] INSURANCE BILL Lymphocytes Absolute 1.9 0.7 - 3.1 x10E3/uL [facility] INSURANCE BILL [...] not needed. Blood BLOOD SPECIMEN / Unknown 11/01/2021 8:51 AM STEAM HAMMER OPERATOR 11/01/2021 Narrative Resulting Agency Comment Lab Testing performed at: [facility] [facility] [place] [id number] [facility] ??[facility] [id number] Lisette Choe MD LAB - HEMATOLOGY ORD ERABLES [facility] INSURANCE BILL [address] [place] [address] documented in this encounter Visit Diagnoses Diagnosis Seropositive erosive rheumatoid arthritis (HCC) Encounter for therapeutic drug monitoring documented in this encounter Care Teams Terminal Superintendent Relationship Specialty Start Date End Date Tanya Jane MD [address] [place] [address] DAVID Jackman [phone] PCP - General 01/05/18 07/09/24 documented as of this encounter
--- OUTSIDE RECORDS SUMMARY | 2024-11-09 23:15 | XMS_ITS | Encounter Summary ---
Author Organization [facility] Address [address] [facility] [place] [address] Care Team Providers Care Mine Promotor Name Role Phone Tanya Jane MD Primary Care Provider [phone] Reason for Visit * Reason Onset Date Comments Medication Issue 07/15/2021 Encounter Details Date Type Department Care Team (Late st Contact Info) Description 07/15/2021 Telephone [facility] [address] [facility], [facility] [address] Lisette Choe MD No info available Medication Issue Social History Tobacco Use Types Packs/Day Years [...] encounter Miscellaneous Notes * Telephone Encounter - Lisette Choe MD - 07/16/2021 3:59 PM CDT Called patient. Will stop Humira due to recurrent reaction at drug site and will switch to Enbrel. Discussed risks/benefits and answered all questions from patient who agreed to plan. Orders placed. * Telephone Encounter - Ayah Reyes RN - 07/15/2021 1:58 PM CDT Pt lvm that from her most recent dose of Humira, she had a welt and itching at the injection site, wants to know if she is supposed to continue the medication or if she needs to switch. please advise, she leaves callback number [phone] documented in this encounter Plan of Treatment Upcoming Encounters Date Type Department Care Team (Late st Contact Info) Description 01/09/2025 2:00 PM CDT Office Visit [facility] [address] [place] [address], [place] [phone] hTalia Dunlap MD [address] [place] [address] [address] [place] [phone] 01/09/2025 2:30 PM CDT Office Visit [facility] [address] [place] [address], [place] [phone] Matias Lewis III, MD [address] [place] [address] [place] [phone] 02/25/2025 2:30 PM CDT Office Visit [facility] - Rheumatology [address] [place] [address], [place] [address] Lonnie Tai MD [address] [facility] [place], [place] [phone] documented as of this encounter Visit Diagnoses Diagnosis Seropositive erosive rheumatoid arthritis (HCC)- Primary documented in this encounter Care Teams Mine Promotor Relationship Specialty Start Date End Date Tanya Jane MD [address] [place] [address] [place] [address] PCP - General 01/05/18 07/09/24 documented as of this encounter
--- OUTSIDE RECORDS SUMMARY | 2024-11-09 23:15 | XMS_ITS | Encounter Summary ---
Author Organization [facility] Address [address] [facility] [place] [address] Care Team Providers Care Supervisor Beam Department Name Role Phone Tanya Jane MD Primary Care Provider [phone] Reason for Visit * Reason Onset Date Comments MEDICATION REFILL 03/02/2021 Encounter Details Date Type Department Care Team (Late st Contact Info) Description 03/02/2021 Refill [facility] [address] [place] [address], [place] [address] Gerald Merchant MD [address] [place] [address] [place] [address] MEDICATION REFILL Social History Tobacco Use Types [...] Telephone Encounter - Jo Ann Haile - 03/02/2021 8:59 AM CDT Refill Request Kianna Hill TREVON: 12.09.20Aug due: 03.03.21 was bumped AUG scheduled: Visit date not found LRF:12.18.20 Qty Disp: 2 pen # of refills: 1 Last labs 12.11.20 Allergies: Allergies Allergen Reactions ??? Codeine Nausea and/or Vomiting Pended Medication Order: Requested Prescriptions No prescriptions requested or ordered in this encounter documented in this encounter Plan of Treatment Upcoming Encounters Date Type Department Care Team (Late st Contact Info) Description 01/09/2025 2:00 PM CDT Office Visit [facility] [facility], [place] [phone] Thalia Dunlap MD [address] [facility] [address] [place] [phone] 01/09/2025 2:30 PM CDT Office Visit [facility] [facility], [place] [phone] [place] [address] [place] [address] 2L [place] [phone] 02/25/2025 2:30 PM CDT Office Visit [facility] Rheumatology [address] [place] [address], [place] [address] Lonnie Tai MD [address] [facility] [place], [place] [phone] documented as of this encounter Visit Diagnoses Diagnosis Seropositive erosive rheumatoid arthritis (HCC) documented in this encounter Care Teams Supervisor Beam Department Relationship Specialty Start Date End Date Tanya Jane MD [address] [place] [address] [place] [phone] PCP - General 01/05/18 07/09/24 documented as of this encounter
--- OUTSIDE RECORDS SUMMARY | 2024-11-09 23:15 | XMS_ITS | Encounter Summary ---
Author Organization [facility] Address [address] [facility] [place] [address] Care Team Providers Care Biomass Production Manager Name Role Phone Tanya Jane MD Primary Care Provider [phone] Reason for Visit * Reason Onset Date Comments MEDICATION REFILL 10/20/2022 Encounter Details Date Type Department Care Team (Late st Contact Info) Description 10/20/2022 Refill [facility] [address] [place] [address], [facility] [place] [phone] Kervin Oates MD [address] [place] [address] [place] [phone] MEDICATION REFILL Social History Tobacco Use Types [...] * Telephone Encounter - Eleanor Gallo - 10/20/2022 3:30 PM CST Refill Request Kianna Hill TREVON: 09/20/2022 NOV scheduled: 12/20/2022 LRF: 09/19/2022 Qty Disp: 4mL # of refills: 0 Allergies: Allergies Allergen Reactions ??? Codeine Nausea and/or Vomiting Pended Medication Order: Requested Prescriptions Pending Prescriptions Disp Refills ??? etanercept (Enbrel) 50 MG/ML auto-injector pen 4 mL 0 Sig: Inject 50 (fifty) mg subcutaneously every 7 days EY MAINTAINER documented in this encounter Plan of Treatment Upcoming Encounters Date Type Department Care Team (Late st Contact Info) Description 01/09/2025 2:00 PM CDT Office Visit [facility] [address] [place] [address], [place] [phone] [place] [address] [place] [address] [address] [place] [phone] 01/09/2025 2:30 PM CDT Office Visit [facility] [address] [place] [address], [place] [phone] Matias Lewis III, MD [address] [place] [address] 2[place] [phone] 02/25/2025 2:30 PM CDT Office Visit [facility] Rheumatology [address] [place] [address], [place] [address] Lonnie Tai MD [address] [facility] [place] [address] documented as of this encounter Visit Diagnoses Diagnosis Seropositive erosive rheumatoid arthritis (HCC) documented in this encounter Care Teams Biomass Production Manager Relationship Specialty Start Date End Date Tanya Jane MD [address] [place] [address] [place] [phone] PCP - General 01/05/18 07/09/24 documented as of this encounter
--- OUTSIDE RECORDS SUMMARY | 2024-11-09 23:15 | XMS_ITS | Encounter Summary ---
Author Organization [facility] Address [address] [facility] [address] Care Team Providers Care Mri Specialist Name Role Phone Tanya Jane MD Primary Care Provider [phone] Reason for Referral * Radiology Services (Routine) - Closed Specialty Diagnoses / Procedures Referred By Contac t Referred To Contact Mammography Diagnoses Seropositive erosive rheumatoid arthritis (HCC) Osteoporosis screening Procedures BONE DENSITY AXIAL SKELETON(1OR MORE SITES)[id number] Gerald Merchant MD [address] [place] [address] [facility] [address] [place] [address] Referral ID Status Reason Start Date Expiration Date Visits Re quested Visits Authorized [id number] Closed 05/05/2021 05/05/2022 1 1 Reason for Visit * Radiology Services (Routine) - Closed Specialty Diagnoses / Procedures Referred By Contac t Referred To Contact Mammography Diagnoses Seropositive erosive rheumatoid arthritis (HCC) Osteoporosis screening Procedures BONE DENSITY AXIAL SKELETON(1OR MORE SITES)[id number] Gerald Merchant MD [address] 2[address] [place] [address] [facility] [address] [place] [address] Referral ID Status Reason Start Date Expiration Date Visits Re quested Visits Authorized [id number] Closed 05/05/2021 05/05/2022 1 1 Encounter Details Date Type Department Care Team (Latest Contact Info) Description 05/13/2021 7:57 AM CDT - 05/13/2021 11:59 PM CDT Hospital Encounter [facility] [address] [place] [address] Gerald Merchant MD [address] [facility] [place] [phone] Discharge Disposition: Home or Self Care Social [...] (one) tablet by mouth once daily 10/01/2019 levothyroxine (SYNTHROID) 75 MCG tablet Take 1 [...] Take 1 (one) tablet by mouth 07/23/2016 adalimumab (HUMIRA) 40 MG/0.4ML injection Inject 40 mg subcutaneously every 14 days 05/05/2021 08/04/2021 adalimumab (HUMIRA) 40 MG/0.4ML injectionIndications :Seropositive erosive rheumatoid arthritis (HCC) Inject 0.4 mL subcutaneously every 14 days 2 syringe 3 05/05/2021 07/16/2021 ergocalciferol (DRISDOL) 1.25 MG (97073 UT) capsule Take 1 capsule by mouth every 7 days 09/20/2022 meloxicam (MOBIC) 7.5 MG tabletIndications:Rh eumatoid arthritis with positive rheumatoid factor, involving unspecified site (HCC) Take 1 tablet by mouth once daily as needed 90 tablet 1 10/01/2020 08/25/2021 documented as of this encounter Plan of Treatment Upcoming Encounters Date Type Department Care Team (Late st Contact Info) Description 01/09/2025 2:00 PM CDT Office Visit [facility] [address] [place] [address], [place] [address] Thalia Dunlap MD [address] [place] [address] [address] [place] [phone] 01/09/2025 2:30 PM CDT Office Visit [facility] [address] [place] [address], [place] [address] Matias Lewis III, MD [facility] 2[place] [address] 02/25/2025 2:30 PM CDT Office Visit [facility] - Rheumatology [address] [place] [address], [place] [phone] Lonnie Tai MD [address] [facility] [place] [address] documented as of this encounter Procedures Procedure Name Priority Date/Time Associated Diagnosis Comments DEXA BONE DENSITY AXIAL SKELETON Routine 05/13/2021 8:11 AM CDT Seropositive erosive rheumatoid arthritis (HCC) Osteoporosis screening documented in this encounter Results * BONE DENSITY AXIAL SKELETON(1OR MORE SITES)[id number] (05/13/2021 8:11 AM CDT) Anatomical Region Laterality Modality Other 05/13/2021 2:47 PM CDT Narrative 05/13/2021 3:03 PM CDT Examination: Dual energy x-ray absorptiometry of the hip. Clinical Indication: M05.80: Seropositive erosive rheumatoid arthritis Z13.820: Osteoporosis screening Findings: Detailed data from the exam is sent separately to the ordering physician and is also available on [employer], the Radiology Department's computerized picture archive system. [...] ordering physician and is also available on [employer], the Radiology Department's computerized picture archive system. [...] Diagnoses Diagnosis Seropositive erosive rheumatoid arthritis (HCC) Osteoporosis screening Special screening for osteoporosis documented in this encounter Care Teams Mri Specialist Relationship Specialty Start Date End Date Tanya Jane MD [address] [place] [address] [place] [address] PCP - General 01/05/18 07/09/24 documented as of this encounter
--- OUTSIDE RECORDS SUMMARY | 2024-11-09 23:15 | XMS_ITS | Encounter Summary ---
Author Organization [facility] Address [address] [place] [address] Care Team Providers Care Rag Cutting Machine Tender Name Role Phone Tanya Jane MD Primary Care Provider [phone] Reason for Referral * Radiology Services (Routine) - Closed Specialty Diagnoses / Procedures Referred By Khoa t Referred To Contact Gastroenterology Diagnoses Elevated LFTs Procedures PROC FIBROSCAN Thalia Dunlap MD [address] [place] [address] [address] [place] [address] [place] [address] [facility] [address] [place] [address] Referral ID Status Reason Start Date Expiration Date Visits Re quested Visits Authorized [id number] Closed 12/15/2022 12/15/2023 1 1 IC WORKER Reason for Visit * Reason Comments Elevated Liver Enzymes Encounter Details Date Type Department Care Team (Late st Contact Info) Description 12/15/2022 1:00 PM FABRIC WORKER Office Visit [facility] - [address] [place] [address] Thalia Dunlap MD [address] [place] [address] [address] MA DO[address] [place] [address] Elevated LFTs (Primary Dx); Nonalcoholic fatty liver disease; Splenomegaly; Metabolic syndrome Social History Tobacco Use Types Packs/Day Years [...] Sign Reading Time Taken Comments Blood Pressure 126/83 12/15/2022 12:41 PM FABRIC WORKER Pulse 102 12/15/2022 12:41 PM FABRIC WORKER Temperature 36.3 ??C (97.3 ??F) 12/15/2022 12:[address] Respiratory Rate - - Oxygen Saturation 99% 12/15/2022 12:41 PM FABRIC WORKER Inhaled Oxygen Concentration - - Weight 72.8 kg (160 lb 6.4 oz) 12/15/2022 12:41 PM FABRIC WORKER Height 168.9 cm (5' 6.5 ) 12/15/2022 12:41 PM CS T Body Mass Index 25.5 12/15/2022 12:41 PM FABRIC WORKER documented in this encounter Progress Notes * Umu Watson, JUNIOR - 12/15/2022 1:55 PM CST Weight Loss Management Measurements Neck 36 cm Waist 100.5 cm Hip 109 cm Calculation 0.92 IC WORKER documented in this encounter H&P Notes * Fredy David DO - 12/15/2022 12:47 PM CST [facility] Initial Evaluation CC: No chief complaint on file. History of Present Illness: Kianna Hill is a 72 year old female with pmh of RA, hypertension, diabetes mellitus, and dyslipidemia, hypothyroidism, GERD, who presents for initial evaluation in Weight and Metabolism Clinic. Patient was noted have cholestatic LFT elevations starting in 2019 and have been ongoing. However, most recent CMP did not show any LFT elevations. Of note, recent U/S showed borderline splenomegaly, hepatic steatosis and cholethiasis. She endorses epigastric burning pain that is related to her GERD but denies RUQ pain related to eating. Otherwise, patient has no new complaints and is feeling well today. Denies history of celiac disease, and HIV. Nutrition ??? 24 hour recall: eggs, toast, biscuits and gravy, hamburger and vietnamese fries, roast beef and potatoes ??? Sugary drinks: none ??? Caffeine Intake: 1 pot of coffee a day ??? Time and Place of Food Intake: first meal of day is at 7-8AM, 12-1PM for lunch, 5PM dinner, 11:30PM snack Exercise ??? none Social History ??? Tobacco: quit smoking 20 years. 20 pack year hx ??? Alcohol: Last drink since new years, before that 2 drinks per week ??? Non-Prescription/Recreational Drug Use: uses marijuana daily ??? 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 No hx of service Past Medical History: Reviewed and updated in [facility] History tab Past Surgical History: Reviewed and updated in [facility] History tab Allergies: Reviewed and updated in [facility] Allergies tab Family History: denies FHx hepatic disease, MEN, thyroid disease (DM), pancreatic disease Brother - Gallbladder issues, s/p cholecystectomy Obesogenic Medications: Review of Systems: (negative except as stated in HPI) Bolds are positive Gen: Fatigue, unexpected weight change, chills, HEENT: headache, visual changes, blurred vision, glaucoma CV: CP, palpitations, ACKERMAN, orthopnea, LE swelling Resp: cough, SOB, wheezing GI: nausea, vomiting, constipation, diarrhea, abd pain, h/o pancreatitis, h/o gallbladder disease : h/o Kidney stones Endocrine: polyuria, polydipsia MSK: neck pain, back pain, neck pain, knee pain, other MSK pain Skin: rash, ulceration, itch Psych: depression, anxiety Neuro: syncope, numbness/tingling, h/o seizure Physical Exam: Wt 72.8 kg (160 lb 6.4 oz) Wt Readings from Last 3 Encounters: 12/15/22 72.8 kg (160 lb 6.4 oz) 09/20/22 75.8 kg (167 lb) 08/04/21 78.5 kg (173 lb) Body mass index is 25.89 kg/m??. Waist Circumference: Hip Circumference: Neck Circumference: W/C Ratio: Gen: Thin, NAD HEENT: NCAT, EOMI Neck: No JVD Resp: CTAB CV: RRR, no mrg's. Abd: Soft, NT/ND. +BS's Ext: No CCE. Skin: Skin color, texture, turgor normal. No rashes or lesions Neuro: alert/conversational/STEWART Labs: Personally reviewed. No results for input(s): CHOLESTEROL, TRIGLYCERIDE, HDL, LDL, NONHDL in the last 46244 hours. No results for input(s): TRIGLYCERIDE in the last 70748 hours. TSH: HbA1c: No results for input(s): HGBA1C in the last 19897 hours. Imaging/Other diagnostic testing: Personally reviewed. Date of Exam: 12/15/2022 Liver Stiffness: (LSM, kPa) median: ??7.7 IQR (interquartile range): ?? 1.2 IQR/Median% (ideally < 30%): ??16% CAP (controlled attenuation parameter): ??323 Assessment & Plan: #Concern for LOPEZ #Elevated Transaminases -risk factors include HTN, HLD, DM, hypothyroid -LFT elevation cholestatic in nature Plan: -Check CBC, CMP, Lipid panel, A1c -Viral Screening panel: Hep B surface antigen + core IgM, Hep C antibody, -Autoimmune screening panel: NAN, SMA, F-actin, M2, IgG, IgM, IgA -Hemochromatosis: iron panel + ferritin -Marcial's: ceruloplasmin, due to age will defer today -A1AT Deficiency: A1AT -Thyroid-Hepatic [place]: TSH -Imaging: Fibroscan today -Avoid liver toxic medications -Lifestyle modifications listed below -Will defer from further biliary workup such as HIDA scan due to lack of clinical symptoms from patient. Likely to be cholestasis secondary to fatty liver #Obesity #Overweight -c/b HTN, HLD, DM, hypothyroid -Limit processed/fatty/fried foods. Limit calorie containing beverages: soda, cream/sugar in coffee(coffee ok), milk, energy drinks, etc. Shift caloric intake to earlier in the day (heavier breakfast/lunch, store leader dinner), increase protein with breakfast to promote satiety throughout the day. -Advised at least 30 mins/day aerobic activity along with 2x/week resistance training General Maintenance: -CRC Screening: Colonoscopy recently, last 1-2 years ago. Informed to follow up with PCP. - Had prior EGD done in the 80s for GERD. IC WORKER Associated attestation - Thalia Dunlap MD - 12/18/2022 12:27 PM FABRIC WORKER GI & Hepatology Attending Note I saw Ms. Hill in the Metabolic Liver Clinic with Dr. David at [facility] today for an initial visit regarding: Elevated liver enzymes Fatty liver - NAFLD Borderline splenomegaly on imaging Metabolic syndrome Relevant issues RA on Humira DM Hyperlipidemia Hypertension Hypothyroidism GB stones Interim history: Kianna Hill is a 72 yo female who was referred to the Metabolic Liver Service for evaluation of increased liver enzymes in association with a fatty liver and possible splenomegaly on imaging. Background of RA on humira, DM, hypothyroidism, Hyperlipidemia. No known chronic liver disease. Found to [...] 13 lbs having been started on Mounjaro. No pruritis or skin excoriations. Does endorse reflux symptoms but no dysphagia or odynophagia or biliary colic or abdominal pain. No jaundice or rigors or steatorrhea. No changes in bowel habit and no hematemesis or melena. Last C- scope 2 years ago. Nil else on ROS PMH: as above FH: no sig. No known CRC. Brother had cholecystectomy. SH: stopped smoking 20 years ago. Physical Exam: BP 126/83 Pulse 102 Temp 97.3 ??F (36.3 ??C) (Temporal) Ht 1.689 m (5' 6.5 ) Wt 72.8 kg (160 lb 6.4 oz) SpO2 99% BMI 25.5 Neck 36 cm Waist 100.5 cm Hip 109 cm Waist: hip Ratio: 0.92 Affect good Neuro cognitively intact Abdomen no distension; no stigmata of CLD; no jaundice Limb: no peripheral edema Relevant test results: 09/2022: Platelet 292 Glucose 143 Creatinine 1.11 Albumin 5.1 ALT 29 AST 25 ALP 108 (normal) Bilirubin 0.4 US 12/2021: fatty liver; GB stones; splenomegaly - 14.5cm Assessment and Plan: Elevated liver enzymes Fatty liver - NAFLD Borderline splenomegaly on imaging Metabolic syndrome Explained reasons for visit today - that she has fatty liver disease which is common, affecting ~35% of the general population, and that this is associated with metabolic risk factors including DM, hypothyroidism, hyperlipidemia. Explained that a fatty liver can lead to increase liver enzymes including ALP. Reassured that whilst majority (>80%) of those with fatty liver have benign liver course, up to 20% may develop liver scarring that can progress over time. Therefore, recommended to complete liver screen panel and a fibroscan to evaluate probability of having advanced liver disease. Discussed association between NAFLD, metabolic risk factors, and cardiovascular risks; hence advised on lifestyle modification with aim of sustained weight loss. Specifically, advised to cut down on carbohydrate intake and avoid night snacks. Reassured about gallbladder stones and explained that surgery needed if symptomatic and / or liver enzymes and imaging suggested biliary obstruction. Advised on low fat diet to avoid triggering symptoms. Fibroscan 12/15/2022: XL probe Success 10/03 = 100% CAP: 323; IQR 53 Liver stiffness 7.7; IQR/Med: 16 - The probability of advanced liver fibrosis is: LOW TO MODERATE. - The loss of ultrasound signal, (controlled attenuation parameter, CAP [dB/m]), indicates that theprobability of hepatic steatosis is: SUBSTANTIAL / HIGH . (Elastograms not ideal; a few acceptable) -> reassured that likelihood of having advanced liver disease is low to moderate. Reiterated lifestyle advice. Recommended repeat Fibroscan / visit in 1 year. Please refer to the Fellow's note forfull details of this visit. Once again, it was a pleasure participating in your patient's care. Please feel free to contact me if you have any questions or if I can be of any further assistance to your patients. Sincerely, THALIA DUNLAP MD PhD Professor of Internal Medicine Director, Division of Gastroenterology and Hepatology Co-Director, [facility] Overall time: to review charts, conduct physical examination, and to discuss investigations and management plans - 75 mins Teaching physician attestation and verification: I attest [...] Office Visit [facility] - GI [address] [place] [address], [place] [address] Thalia Dunlap MD [address] [place] [address] [address] [place] [address] 01/09/2025 2:30 PM CDT Office Visit [facility] - GI [address] [place] [address], [place] [address] Matias Lewis III, MD [address] [place] [address] [address] [place] [address] 02/25/2025 2:30 PM CDT Office Visit [facility] - Rheumatology [address] [place] [address], [place] [address] Lonnie Tai MD [address] [facility] [place], [place] [id number] documented as of this encounter Results * TISSUE TRANSGLUTAMINASE AB IGA (12/15/2022 2:35 PM FABRIC WORKER) Tissue Transglutaminase (tTG) Ab, IgA <2 0 - 3 U/mL 12/17/2022 2:11 PM FABRIC WORKER [facility] ([facility]) Comment: INTERPRETIVE INFORMATION: Tissue Transglutaminase (tTG) Antibody, [...] positive predictive value for disease. Performed By: [facility] [address] [place] [address] Motion Study Engineer: Kleber Choudhary MD, PhD Blood BLOOD SPECIMEN / Unknown Lab Venipuncture / Unknown 12/15/2022 2:35 PM FABRIC WORKER 12/15/2022 2:56 PM FABRIC WORKER Thalia Dunlap MD LAB - SEROLOGY ORDER BLESSING Performing Organization Address [facility] Co de Phone Number [facility] [employer] [facility]) [address] [place] [address] * MITOCHONDRIAL ANTIBODY SCREEN (12/15/2022 2:35 PM FABRIC WORKER) [facility] Mitochondrial M2 Antibody 2.7 0.0 - 24.9 Units 12/17/2022 3:23 PM FABRIC WORKER [facility] ([facility]) Comment: REFERENCE INTERVAL: Mitochondrial (M2) Antibody, IgG [...] does not rule out PBC. Performed By: [facility] [address] [place] [address] Motion Study Engineer: Kleber Choudhary MD, PhD Blood BLOOD SPECIMEN / Unknown Lab Venipuncture / Unknown 12/15/2022 2:35 PM FABRIC WORKER 12/15/2022 2:56 PM FABRIC WORKER Thalia Dunlap MD LAB - CHEMISTRY ORDE YADIRA Performing Organization Address City/[facility]/ZIP Co de Phone Number [facility]) [address] [place] [address] * (ABNORMAL) LIPID PROFILE (12/15/2022 2:35 PM FABRIC WORKER) [facility] Cholesterol Total 94 <200 mg/dL 12/15/2022 3:32 PM [facility] HDL 32(L) >40 mg/dL 12/15/2022 3:32 PM [facility] Comment: ATP III Classification of HDL Cholesterol: ? <40 mg/dL: ??Considered a major risk factor. ? >60 mg/dL: ??Considered a negative risk factor. ? LDL Calculated 39 <100 mg/dL 12/15/2022 3:32 PM [facility] Comment: ATP III Classification of LDL Cholesterol: ?<100 mg/dL: ??Optimal ? 100 - 129 mg/dL: ??Near Optimal/Above Optimal ? 130 - 159 mg/dL: ??Borderline High ? 160 - 189 mg/dL: ??High ?>190 mg/dL: ??Very High ? Triglycerides 117 <150 mg/dL 12/15/2022 3:32 PM [facility] Comment: ATP III Classification of Triglycerides: ?<150 mg/dL: ??Normal ? 150 - 199 mg/dL: ??Borderline High ? 200 - 400 mg/dL: ??High ?>500 mg/dL: ??Very High Blood BLOOD SPECIMEN / Unknown Lab Venipuncture / Unknown 12/15/2022 2:35 PM FABRIC WORKER 12/15/2022 2:58 PM FABRIC WORKER Thalia Dunlap MD LAB - CHEMISTRY ROBERT MAY Performing Organization Address [facility]/State/[facility] Co de Phone Number [facility] [address] [place] [phone], [facility] [phone] * (ABNORMAL) IRON + TRANSFERRIN PANEL (12/15/2022 2:35 PM FABRIC WORKER) [facility] Iron 78 40 - 150 ug/dL 12/15/2022 3:22 PM [facility] Transferrin 389(H) 174 - 382 mg/dL 12/15/2022 3:22 PM [facility] Transferrin Saturation % 16 16 - 50 % 12/15/2022 3:22 PM [facility] TIBC Calculated 486(H) 240 - 450 ug/dL 12/15/2022 3:22 PM FABRIC WORKER [facility] Blood BLOOD SPECIMEN / Unknown Lab Venipuncture / Unknown 12/15/2022 2:35 PM FABRIC WORKER 12/15/2022 2:56 PM FABRIC WORKER Thalia Dunlap MD LAB - CHEMISTRY ROBERT MAY [address] [address], [place] [phone] * IGM BLOOD (12/15/2022 2:35 PM FABRIC WORKER) IgM 46 37 - 286 mg/dL 12/15/2022 3:22 PM FABRIC WORKER [facility] Blood BLOOD SPECIMEN / Unknown Lab Venipuncture / Unknown 12/15/2022 2:35 PM FABRIC WORKER 12/15/2022 2:56 PM FABRIC WORKER Thalia Dunlap MD LAB - CHEMISTRY ROBERT MAY Performing Organization Address City/[facility]/ZIP Co de Phone Number [address] [address], [place] [phone] * (ABNORMAL) IGG BLOOD (12/15/2022 2:35 PM FABRIC WORKER) IgG 542(L) 767 - 1,590 mg/dL 12/15/2022 3:22 PM FABRIC WORKER [facility] Blood BLOOD SPECIMEN / Unknown Lab Venipuncture / Unknown 12/15/2022 2:35 PM FABRIC WORKER 12/15/2022 2:56 PM FABRIC WORKER Thalia Dunlap MD LAB - CHEMISTRY ROBERT MAY [address] [address], [place] [phone] * IGA BLOOD (12/15/2022 2:35 PM FABRIC WORKER) Pathologist [facility] IgA 133 61 - 356 mg/dL 12/15/2022 3:22 PM FABRIC WORKER [facility] Blood BLOOD SPECIMEN / Unknown Lab Venipuncture / Unknown 12/15/2022 2:35 PM FABRIC WORKER 12/15/2022 2:56 PM FABRIC WORKER Thalia Dunlap MD LAB - CHEMISTRY ROBERT MAY [facility] [address] [place] [address], [place] [phone] * HEPATITIS C ANTIBODY W RFLX PCR (12/15/2022 2:35 PM FABRIC WORKER) Pathologist [facility] Hepatitis C Antibody Non Reactive Non Reactive 12/16/2022 11:11 AM FABRIC WORKER [facility] ([facility]) Blood BLOOD SPECIMEN / Unknown Lab Venipuncture / Unknown 12/15/2022 2:35 PM FABRIC WORKER 12/15/2022 2:56 PM FABRIC WORKER Narrative [facility] ([facility]) - 12/16/2022 11:11 AM FABRIC WORKER Performed at: ??01 - [facility] [address] [place], [place] ??[id number] Roll Coating Machine Operator: Evaristo Hamilton PhD, Phone: ??[phone] Thalia Dunlap MD LAB - CHEMISTRY ROBERT MAY Performing Organization Address City/[facility]/ZIP Co de Phone Number [facility] ([facility]) [address] [place] [address] * HEPATITIS B SURFACE ANTIGEN W RFLX CONFIRMATION (12/15/2022 2:35 PM FABRIC WORKER) Pathologist [facility] Hepatitis B Virus Surface Antigen Non-reacti ve Non-reacti ve 12/15/2022 3:41 PM FABRIC WORKER [facility] Blood BLOOD SPECIMEN / Unknown Lab Venipuncture / Unknown 12/15/2022 2:35 PM FABRIC WORKER 12/15/2022 2:56 PM FABRIC WORKER Thalia Dunlap MD LAB - CHEMISTRY ROBERT MAY Performing Organization Address [facility]/ZIP Co de Phone Number [facility] [address] [place] [address], [facility] [phone] * HEPATITIS B SURFACE ANTIBODY (12/15/2022 2:35 PM FABRIC WORKER) Hepatitis B Virus Surface Antibody Non-react comfort Non-react comfort 12/15/2022 3:41 PM FABRIC WORKER [facility] Comment: < 8 mIU/mL Hepatitis B surface Antibody (HBsAb). Nonreactive for HBsAb - individual is considered not immune to Hepatitis B Virus infection. Hepatitis B Surface Antibody Quantitative 0.1 <8.0 mIU/mL 12/15/2022 3:41 PM FABRIC WORKER [facility] Comment: Hepatitis B Surface Antibody Numeric Result Interpretation: ? Nonreactive: ?<8.0 mIU/mL ? Indeterminate: ??8.0 - 12.0 mIU/mL ? Reactive: ?>12.0 mIU/mL ? Blood BLOOD SPECIMEN / Unknown Lab Venipuncture / Unknown 12/15/2022 2:35 PM FABRIC WORKER 12/15/2022 2:56 PM FABRIC WORKER Thalia Dunlap MD LAB - CHEMISTRY ROBERT MAY Performing Organization Address City/[facility]/ZIP Co de Phone Number [facility] [address] [place] [address], [facility] [phone] * HEPATITIS B CORE ANTIBODY IGM (12/15/2022 2:35 PM FABRIC WORKER) Hepatitis B Core Virus Antibody IgM Non-reacti ve Non-reacti ve 12/15/2022 3:41 PM FABRIC WORKER [facility] Blood BLOOD SPECIMEN / Unknown Lab Venipuncture / Unknown 12/15/2022 2:35 PM FABRIC WORKER 12/15/2022 2:56 PM FABRIC WORKER Thalia Dunlap MD LAB - CHEMISTRY ROBERT MAY Performing Organization Address [facility]/ZIP Co de Phone Number [facility] [address] [place] [address], [facility] [phone] * (ABNORMAL) HEMOGLOBIN A1C (12/15/2022 2:35 PM FABRIC WORKER) Hemoglobin A1c 6.7(H) <=5.6 % 12/16/2022 10:36 AM [facility] Estimated Average Glucose 146 mg/dL 12/16/2022 10:36 AM [facility] Comment: HbA1c Interpretation: Normal : < 5.7% Pre-diabetes: 5.7-6.4% Diabetes: Equal to or greater than 6.5% Test results diagnostic of diabetes should be repeated for confirmation. Treatment target values recommended by ADA and other clinical organizations should be used to evaluate metabolic control in patients. Reference: [place] [employer] Association, Standards of Care in Diabetes -2020 In patients 70 years and older consider HbA1c target range of 7.0-7.5% (Reference: Oz Vizcarra et al. JAMDA. 2012) The Sebia assay for the measurement of HbA1c is a National Glycohemoglobin Standardization Program (NGSP) certified method. Blood BLOOD SPECIMEN / Unknown Lab Venipuncture / Unknown 12/15/2022 2:35 PM FABRIC WORKER 12/15/2022 2:58 PM FABRIC WORKER Thalia Dunlap MD LAB - CHEMISTRY ROBERT MAY Performing Organization Address [facility]/ZIP Co de Phone Number [facility] [address] [place] [address], [facility] [phone] * FERRITIN (12/15/2022 2:35 PM FABRIC WORKER) Ferritin 29 13 - 204 ng/mL 12/15/2022 3:41 PM FABRIC WORKER [facility] Blood BLOOD SPECIMEN / Unknown Lab Venipuncture / Unknown 12/15/2022 2:35 PM FABRIC WORKER 12/15/2022 2:56 PM FABRIC WORKER Thalia Dunlap MD LAB - CHEMISTRY ROBERT MAY [facility] [address] [place] [address], [facility] [phone] * (ABNORMAL) COMPREHENSIVE METABOLIC PANEL (12/15/2022 2:35 PM [facility]) BUN 8 7 - 26 mg/dL 12/15/2022 3:32 PM [facility] Creatinine 1.10(H) 0.56 - 0.96 mg/dL 12/15/2022 3:32 PM [facility] Sodium 136 136 - 145 mmol/L 12/15/2022 3:32 PM [facility] Potassium 3.5 3.5 - 4.5 mmol/L 12/15/2022 3:32 PM [facility] Chloride 101 98 - 107 mmol/L 12/15/2022 3:32 PM [facility] CO2 25 22 - 29 mmol/L 12/15/2022 3:32 PM [facility] Glucose 137(H) 70 - 115 mg/dL 12/15/2022 3:32 PM [facility] Calcium 10.0 8.4 - 10.2 mg/dL 12/15/2022 3:32 PM [facility] Protein Total 6.8 6.0 - 8.3 g/dL 12/15/2022 3:32 PM [facility] Albumin 4.5 3.4 - 5.0 g/dL 12/15/2022 3:32 PM [facility] Bilirubin Total 0.5 0.2 - 1.2 mg/dL 12/15/2022 3:32 PM [facility] Alkaline Phosphatase 75 40 - 150 U/L 12/15/2022 3:32 PM [facility] ALT 14 5 - 55 U/L 12/15/2022 3:32 PM [facility] AST 14 5 - 34 U/L 12/15/2022 3:32 PM [facility] Anion Gap 14 8 - 18 12/15/2022 3:32 PM [facility] BUN/Creatinine Ratio 7 7 - 23 12/15/2022 3:32 PM [facility] Osmolality Calculated 282 270 - 300 mOsm/kg 12/15/2022 3:32 PM [facility] Albumin/Globulin Ratio 2.0 1.1 - 2.3 12/15/2022 3:32 PM [facility] eGFR by CKD-EPI 54(L) >=90 mL/min/1.7 3 m2 12/15/2022 3:32 PM [facility] Blood BLOOD SPECIMEN / Unknown Lab Venipuncture / Unknown 12/15/2022 2:35 PM FABRIC WORKER 12/15/2022 2:58 PM FABRIC WORKER Thalia Dunlap MD LAB - CHEMISTRY ROBERT MAY [facility] [address] [place] [address], [facility] [phone] * (ABNORMAL) CBC W/O DIFFERENTIAL (12/15/2022 2:35 PM FABRIC WORKER) WBC 9.4 3.5 - 10.5 10? 3 /uL 12/15/2022 3:06 PM [facility] RBC 4.36 3.80 - 5.20 10? 6 /uL 12/15/2022 3:06 PM [facility] Hemoglobin 11.9(L) 12.0 - 15.6 g/dL 12/15/2022 3:06 PM [facility] Hematocrit 35.5 35.0 - 45.0 % 12/15/2022 3:06 PM [facility] MCV 81.4 80.7 - 98.3 fL 12/15/2022 3:06 PM [facility] MCH 27.3 26.7 - 34.0 pg 12/15/2022 3:06 PM [facility] MCHC 33.5 30.8 - 35.9 g/dL 12/15/2022 3:06 PM [facility] RDW-SD 46.5 36.0 - 50.0 fL 12/15/2022 3:06 PM [facility] RDW-CV 15.5(H) 11.2 - 14.8 % 12/15/2022 3:06 PM [facility] Platelet Count 293 150 - 400 10? 3 /uL 12/15/2022 3:06 PM [facility] MPV 10.7 9.4 - 12.9 fL 12/15/2022 3:06 PM FABRIC WORKER [facility] nRBC Absolute 0.00 0 10? 3 /uL 12/15/2022 3:06 PM FABRIC WORKER [facility] nRBC Auto 0.0 0 /100 WBC 12/15/2022 3:06 PM FABRIC WORKER [facility] Blood BLOOD SPECIMEN / Unknown Lab Venipuncture / Unknown 12/15/2022 2:35 PM FABRIC WORKER 12/15/2022 2:59 PM FABRIC WORKER Thalia Dunlap MD LAB - HEMATOLOGY ORD ERABLES [facility] [address] [place] [phone], [facility] [phone] * NAN BLOOD SCREEN W/REFLEX TITER (12/15/2022 2:35 PM FABRIC WORKER) NAN IgG None Detected None Detected 12/17/2022 8:50 PM FABRIC WORKER [facility] ([facility]) Comment: If suspicion of connective tissue disease is strong and NAN EIA is negative, consider testing for NAN by IFA ([id number]). INTERPRETIVE INFORMATION: Anti-Nuclear Antibodies (NAN), IgG by NEFTALY Antinuclear Antibodies (NAN), IgG by NEFTALY: NAN specimens are screened using enzyme-linked immunosorbent assay (NEFTALY) methodology. All NEFTALY results reported as Detected are further tested by indirect fluorescent assay (IFA) using HEp-2 substrate with an IgG-specific conjugate. The NAN NEFTALY screen is designed to detect antibodies against dsDNA, histones, SS-A (Ro), SS-B (La), Alexander, Alexander/DOOR FRAME BUILDER, Scl-70, Shell-1, centromeric proteins, other antigens extracted from the HEp-2 cell nucleus. NAN NEFTALY assays have been reported to have lower sensitivities than NAN IFA for systemic autoimmune rheumatic diseases (SARD). Negative results do not necessarily rule out SARD. Performed By: [facility] [address] [place] [id number] Motion Study Engineer: Kleber Choudhary MD, PhD Blood BLOOD SPECIMEN / Unknown Lab Venipuncture / Unknown 12/15/2022 2:35 PM FABRIC WORKER 12/15/2022 2:57 PM FABRIC WORKER Thalia Dunlap MD LAB - CHEMISTRY ROBERT MAY [facility] [employer] ([facility]) [address] [place] [address], [facility] * [id number] BLOOD (12/15/2022 2:35 PM FABRIC WORKER) Upqcf-7-Uymzmn ypsin 95 90 - 200 mg/dL 12/15/2022 3:23 PM FABRIC WORKER [facility] Blood BLOOD SPECIMEN / Unknown Lab Venipuncture / Unknown 12/15/2022 2:35 PM FABRIC WORKER 12/15/2022 2:56 PM FABRIC WORKER Thalia Dunlap MD LAB - CHEMISTRY ROBERT MAY [facility] [address] [place] [address], [facility] [phone] * PROC FIBROSCAN (12/15/2022 1:14 PM FABRIC WORKER) Narrative Adriana Alexander RN - 12/15/2022 1:14 PM FABRIC WORKER Adriana Alexander RN ? 12/15/2022 ??1:26 PM [...] Elevated LFTs- Primary Other abnormal blood chemistry Nonalcoholic fatty liver disease Other chronic nonalcoholic liver disease Splenomegaly Metabolic syndrome Dysmetabolic Syndrome X Nonalcoholic fatty liver disease- Primary Other chronic nonalcoholic liver disease Elevated LFTs Other abnormal blood chemistry documented in this encounter Care Teams Rag Cutting Machine Tender Relationship Specialty Start Date End Date Tanya Jane MD [address] [place] [address] DAVID Jackman [phone] PCP - General 01/05/18 07/09/24 documented as of this encounter
--- OUTSIDE RECORDS SUMMARY | 2024-11-09 23:15 | XMS_ITS | Encounter Summary ---
Author Organization [facility] Address [address] [facility] [place] [address] Care Team Providers Care Logistics Specialist Name Role Phone Tanya Jane MD Primary Care Provider [phone] Reason for Visit * Reason Onset Date Comments MEDICATION REFILL 02/28/2022 Encounter Details Date Type Department Care Team (Late st Contact Info) Description 02/28/2022 Refill [facility] [address] [facility], [place] [phone] Lisette Choe MD No info available MEDICATION [...] Telephone Encounter - Ayah Richards RN - 02/28/2022 2:44 PM CDT Refill Request Kianna Hill TREVON: 01/05/22 NOV scheduled: Visit date not found LRF: 08/25/21 Qty Disp: 90 tab # of refills:1 Labs: 11/01/21 Allergies: Allergies Allergen Reactions ??? Codeine Nausea and/or Vomiting Pended Medication Order: Requested Prescriptions Pending Prescriptions Disp Refills ??? meloxicam (MOBIC) 7.5 MG tablet 90 tablet 1 Sig: Take 1 (one) tablet by mouth once daily as needed documented in this encounter Plan of Treatment Upcoming Encounters Date Type Department Care Team (Late st Contact Info) Description 01/09/2025 2:00 PM CDT Office Visit [facility] [address] [place] [address], [place] [phone] Thalia Dunlap MD [address] [place] [address] [address] [place] [phone] 01/09/2025 2:30 PM CDT Office Visit [facility] [address] [place] [address], [place] [phone] Matias Lewis III, MD [facility] [address] [place] [phone] 02/25/2025 2:30 PM CDT Office Visit [facility] Rheumatology [address] [place] [address], [place] [phone] Lonnie Tai MD [address] [facility] [place], [place] [id number] documented as of this encounter Visit Diagnoses Diagnosis Rheumatoid arthritis with positive rheumatoid factor, involving unspecified site (HCC) documented in this encounter Care Teams Logistics Specialist Relationship Specialty Start Date End Date Tanya Jane MD [address] [place] [address] PCP - General 01/05/18 07/09/24 documented as of this encounter
--- OUTSIDE RECORDS SUMMARY | 2024-11-09 23:16 | XMS_ITS | Encounter Summary ---
Author Organization [facility] Address [address] [facility] [place] [address] Care Team Providers Care Leather Novelty Parts Cutter Name Role Phone Tanya Jane MD Primary Care Provider [phone] Encounter Details Date Type Department Care Team (Late Contact Info) Description 03/15/2019 Orders Only [facility] [address] [place] [address] Tanya Blue DO [address] [place] [phone] Rheumatoid arthritis with positive rheumatoid factor, involving unspecified site (HCC); Other exterminator helper termite (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; Encounter for therapeutic drug level monitoring; Essential hypertension; Type 2 diabetes mellitus without complication, without long-term current use of insulin (HCC) Social History Tobacco Use Types Packs/Day Years Used Date Smoking Tobacco: Former Smokeless Tobacco: Never Alcohol Use Standard Drinks/Week Comments Yes 1 (1 standard drink = 0.6 oz pur e alcohol) Sex and Gender Information Value Date Recorded Sex Assigned at Not on file Gender Identity Not on file Sexual Orientation Not on file documented as of this encounter Plan of Treatment Upcoming Encounters Date Type Department Care Team (Late st Contact Info) Description 01/09/2025 2:00 PM CDT Office Visit [facility] [address] [facility] [place] [place] [phone] Thalia Dunlap MD [address] [facility] [address] [place] [phone] 01/09/2025 2:30 PM CDT [facility] [address] [facility] [place] [place] [address] Matias Lewis III, MD [address] [facility] [address] [place] [phone] 02/25/2025 2:30 PM CDT Office Visit [facility] Rhe[facility] [address] [facility] [place] [place] [address] Lonnie Tai MD [address] [facility] [place], [place] [phone] documented as of this encounter Procedures Procedure Name Priority Date/Time Associated Diagnosis Comments URINALYSIS MICROSCOPIC ONLY REFLEXED Routine 04/10/2019 8:45 AM CDT Rheumatoid arthritis with positive rheumatoid factor, involving unspecified site (HCC) Other exterminator helper termite (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 Encounter for therapeutic drug level monitoring Essential hypertension Type 2 diabetes mellitus without complication, without long-term current use of insulin (HCC) URINALYSIS W/MICROSCOPIC REFLEX TO CULTURE Routine 04/10/2019 8:45 AM CDT Rheumatoid arthritis with positive rheumatoid factor, involving unspecified site (HCC) Other exterminator helper termite (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 Encounter for therapeutic drug level monitoring Essential hypertension Type 2 diabetes mellitus without complication, without long-term current use of insulin (HCC) CULTURE URINE COMPREHENSIVE Routine 04/10/2019 8:45 AM CDT Rheumatoid arthritis with positive rheumatoid factor, involving unspecified site (HCC) Other nursing home (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 Encounter for therapeutic drug level monitoring Essential hypertension Type 2 diabetes mellitus without complication, without long-term current use of insulin (HCC) C-REACTIVE PROTEIN Routine 04/10/2019 8: 45 AM CDT Rheumatoid arthritis with positive rheumatoid factor, involving unspecified site (HCC) Other nursing home (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 Encounter for therapeutic drug level monitoring Essential hypertension Type 2 diabetes mellitus without complication, without long-term current use of insulin (HCC) ERYTHROCYTE SEDIMENTATION RATE Routine 04/10/2019 8:45 AM CDT Rheumatoid arthritis with positive rheumatoid factor, involving unspecified site (HCC) Other exterminator helper termite (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 Encounter for therapeutic drug level monitoring Essential hypertension Type 2 diabetes mellitus without complication, without long-term current use of insulin (HCC) CBC W AUTO DIFFERENTIAL Routine 04/10/2019 8:45 AM CDT Rheumatoid arthritis with positive rheumatoid factor, involving unspecified site (HCC) Other nursing home (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 Encounter for therapeutic drug level monitoring Essential hypertension Type 2 diabetes mellitus without complication, without long-term current use of insulin (HCC) COMPREHENSIVE METABOLIC PANEL Routine 04/10/2019 8:45 AM CDT Rheumatoid arthritis with positive rheumatoid factor, involving unspecified site (HCC) Other nursing home (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 Encounter for therapeutic drug level monitoring Essential hypertension Type 2 diabetes mellitus without complication, without long-term current use of insulin (HCC) documented in this encounter Results * (ABNORMAL) CULTURE URINE COMPREHENSIVE (04/10/2019 8:45 AM CDT) [facility] Urine Culture Comprehensive Final report(A) [facility] INSURANCE BILL Result 1 Escherichia coli(A) [facility] INSURANCE BILL Comment: 1,000 Colonies/mL Cefazolin <=4 ug/mL Cefazolin with an LEVY <=16 predicts susceptibility to the oral agents cefaclor, cefdinir, cefpodoxime, cefprozil, cefuroxime, cephalexin, and loracarbef when used for therapy of uncomplicated urinary tract infections due to E. coli, Klebsiella pneumoniae, and Proteus mirabilis. Result 2 Klebsiella pneumoniae(A) [facility] INSURANCE BILL Comment: 400 Colonies/mL Cefazolin <=4 ug/mL Cefazolin with an LEVY <=16 predicts susceptibility to the oral agents cefaclor, cefdinir, cefpodoxime, cefprozil, cefuroxime, cephalexin, and loracarbef when used for therapy of uncomplicated urinary tract infections due to E. coli, Klebsiella pneumoniae, and Proteus mirabilis. Antimicrobial Susceptibility [facility] INSURANCE BILL Comment: ? S = Susceptible; I = Intermediate; R = Resistant ? P = Positive; N = Negative ?MICS are expressed in micrograms per mL ?? Antibiotic ? RSLT#1 ?RSLT#2 ?RSLT#3 ?RSLT#4 Amoxicillin/Clavulanic Acid ?S =4 ?S<=2 Ampicillin ? R>=32 ? R =R Cefepime ? S<=0.12 ?? S<=0.12 Ceftriaxone ?S<=0.25 ?? S<=0.25 Cefuroxime ? S =4 ?S<=1 Ciprofloxacin ?S<=0.25 ?? S<=0.25 Ertapenem ?S<=0.12 ?? S<=0.12 Gentamicin ? S<=1 ?S<=1 Imipenem ? S<=0.25 ?? S<=0.25 Levofloxacin ? S<=0.12 ?? S<=0.12 Meropenem ?S<=0.25 ?? S<=0.25 Nitrofurantoin ? S<=16 ? S =32 Piperacillin/Tazobactam ?S<=4 ?S<=4 Tetracycline ? S<=1 ?S<=1 Tobramycin ? S<=1 ?S<=1 Trimethoprim/Sulfa ? S<=20 ? S<=20 FASTING 04/10/2019 8:45 AM CDT 04/10/2019 Narrative Resulting Agency Comment Lab Testing performed at: [employer] ??[facility] [phone] Tanya Blue DO LAB - MICROBIOLOGY O RDERABLES [facility] INSURANCE BILL [address] [place] [address] * URINALYSIS MICROSCOPIC ONLY REFLEXED (04/10/2019 8:45 AM CDT) WBC UA None seen 0 - 5 /hpf [facility] INSURANCE BILL RBC UA None seen 0 - 2 /hpf [facility] INSURANCE BILL Epithelial Cells (non renal) 0-10 0 - 10 /hpf [facility] INSURANCE BILL Epithelial Cells (renal) NOT NEEDED [facility] INSURANCE BILL Comment:Ancillary determined the test is not needed Casts ua NOT NEEDED [facility] INSURANCE BILL Comment:Ancillary determined the test is not needed Casts UA NOT NEEDED [facility] INSURANCE BILL Comment:Ancillary determined the test is not needed Crystals UA NOT NEEDED [facility] INSURANCE BILL Comment:Ancillary determined the test is not needed Crystals UA NOT NEEDED [facility] INSURANCE BILL Comment:Ancillary determined the test is not needed Mucus UA Present Not Estab. [facility] INSURANCE BILL Bacteria UA Few None seen/Few [facility] INSURANCE BILL Yeast UA NOT NEEDED [facility] INSURANCE BILL Comment:Ancillary determined the test is not needed Trichomonas UA NOT NEEDED [facility] INSURANCE BILL Comment:Ancillary determined the test is not needed Comment Urine NOT NEEDED [facility] INSURANCE BILL Comment: FASTING Ancillary determined the test is not needed 04/10/2019 8:45 AM CDT 04/10/2019 Narrative Resulting Agency Comment Lab Testing performed at: [facility] [address] ??[facility] [phone] Tanya Blue DO LAB - URINALYSIS ORD ERABLES Performing Organization Address City/[facility]/ZIP Co de Phone Number [facility] INSURANCE BILL [address] [place] [address] * (ABNORMAL) URINALYSIS W/MICROSCOPIC REFLEX TO CULTURE (04/10/2019 8:45 AM CDT) Specific [place] UA 1.008 1.005 - 1.030 [facility] INSURANCE BILL pH UA 6.5 5.0 - 7.5 [facility] INSURANCE BILL Color UA Yellow Yellow [facility] INSURANCE BILL Appearance Clear Clear [facility] INSURANCE BILL Leukocyte UA Trace(A) Negative [facility] INSURANCE BILL Protein UA Negative Negative/Tra ce [facility] INSURANCE BILL Glucose UA Negative Negative [facility] INSURANCE BILL Ketone UA Negative Negative [facility] INSURANCE BILL Occult Blood Urine Negative Negative [facility] INSURANCE BILL Bilirubin UA Negative Negative [facility] INSURANCE BILL Urobilinogen 0.2 0.2 - 1.0 mg/dL [facility] INSURANCE BILL Nitrite UA Negative Negative [facility] INSURANCE BILL Microscopic Examination Urine See below: [facility] INSURANCE BILL Comment: Microscopic was indicated and was performed. FASTING Microscopic Examination Urine NOT NEEDED [facility] INSURANCE BILL Comment:Ancillary determined the test is not needed Urinalysis Reflex [facility] INSURANCE BILL Comment: This specimen has reflexed to a Urine Culture. FASTING Urine URINE SPECIMEN OBTAINED BY CLEAN CATCH PROCEDURE / Unknown 04/10/2019 8:45 AM CDT 04/10/2019 Narrative Resulting Agency Comment Lab Testing performed at: [employer] [address] ??[facility] [phone] Tanya Blue DO LAB - URINALYSIS ORD ERABLES [facility] INSURANCE BILL [address] [place] [address] * ERYTHROCYTE SEDIMENTATION RATE (04/10/2019 8:45 AM CDT) Erythrocyte Sedimentation Rate Westergren 2 0 - 40 mm/hr [facility] INSURANCE BILL Comment:FASTING Blood BLOOD SPECIMEN / Unknown 04/10/2019 8:45 AM CDT 04/10/2019 Narrative Resulting Agency Comment [facility] performed at: [facility] [address] ??[facility] [phone] Tanya Blue DO LAB - HEMATOLOGY ORD ERABLES Performing Organization Address [facility]/ZIP Co de Phone Number [facility] INSURANCE BILL [address] [place] [address] * C-REACTIVE PROTEIN (04/10/2019 8:45 AM CDT) Pathologist [facility] C-Reactive Protein 3 0 - 10 mg/L [facility] INSURANCE BILL Comment: ? Please note reference interval change FASTING Blood BLOOD SPECIMEN / Unknown 04/10/2019 8:45 AM CDT 04/10/2019 Narrative Resulting Agency Comment [facility] performed [facility]: [facility] [address] ??[facility] [phone] Tanya Blue DO LAB - CHEMISTRY ORDE RABLES Performing Organization Address [facility] Co de Phone Number [facility] INSURANCE BILL [address] [place] [address] * (ABNORMAL) COMPREHENSIVE METABOLIC PANEL (04/10/2019 8:45 AM CDT) Glucose 102(H) 65 - 99 mg/dL [facility] INSURANCE BILL BUN 15 8 - 27 mg/dL [facility] INSURANCE BILL Creatinine 0.96 0.57 - 1.00 mg/dL [facility] INSURANCE BILL eGFR by MDRD 62 >59 mL/min/1.7 3 [facility] INSURANCE BILL eGFR by MDRD 71 >59 mL/min/1.7 3 [facility] INSURANCE BILL BUN/Creatinine Ratio 16 12 - 28 [facility] INSURANCE BILL Sodium 141 134 - 144 mmol/L [facility] INSURANCE BILL Potassium 4.7 3.5 - 5.2 mmol/L [facility] INSURANCE BILL Chloride 104 96 - 106 mmol/L [facility] INSURANCE BILL CO2 22 20 - 29 mmol/L [facility] INSURANCE BILL Calcium 9.6 8.7 - 10.3 mg/dL [facility] INSURANCE BILL Protein Total 6.6 6.0 - 8.5 g/dL [facility] INSURANCE BILL Albumin 4.6 3.6 - 4.8 g/dL [facility] INSURANCE BILL Globulin Total 2.0 1.5 - 4.5 g/dL [facility] INSURANCE BILL Albumin/Globulin Ratio 2.3(H) 1.2 - 2.2 [facility] INSURANCE BILL Bilirubin Total 0.4 0.0 - 1.2 mg/dL [facility] INSURANCE BILL Alkaline Phosphatase 66 39 - 117 IU/L [facility] INSURANCE BILL AST 24 0 - 40 IU/L [facility] INSURANCE BILL ALT 25 0 - 32 IU/L [facility] INSURANCE BILL Comment:FASTING Blood BLOOD SPECIMEN / Unknown 04/10/2019 8:45 AM CDT 04/10/2019 Narrative Resulting Agency Comment Lab Testing performed at: [facility] ??[facility] [phone] Tanya Blue DO LAB - CHEMISTRY ROBERT MAY [facility] INSURANCE BILL [address] [place] [address] * CBC WITH DIFFERENTIAL (04/10/2019 8:45 AM CDT) WBC 7.5 3.4 - 10.8 x10E3/uL [facility] INSURANCE BILL RBC 4.23 3.77 - 5.28 x10E6/uL [facility] INSURANCE BILL Hemoglobin 11.7 11.1 - 15.9 g/dL [facility] INSURANCE BILL Hematocrit 36.7 34.0 - 46.6 % [facility] INSURANCE BILL MCV 87 79 - 97 fL [facility] INSURANCE BILL MCH 27.7 26.6 - 33.0 pg [facility] INSURANCE BILL MCHC 31.9 31.5 - 35.7 g/dL [facility] INSURANCE BILL RDW 14.7 12.3 - 15.4 % [facility] INSURANCE BILL Platelet Count 283 150 - 450 x10E3/uL [facility] INSURANCE BILL Granulocytes % 66 Not Estab. % [facility] INSURANCE BILL Lymphocytes % 22 Not Estab. % [facility] INSURANCE BILL Monocytes % 8 Not Estab. % [facility] INSURANCE BILL Eosinophils % 3 Not Estab. % [facility] INSURANCE BILL Basophils % 1 Not Estab. % [facility] INSURANCE BILL Immature Cells NOT NEEDED [facility] INSURANCE BILL Comment:Ancillary determined the test is not needed Granulocytes Absolute 4.9 1.4 - 7.0 x10E3/uL [facility] INSURANCE BILL Lymphocytes Absolute 1.7 0.7 - 3.1 x10E3/uL [facility] INSURANCE BILL Monocytes Absolute 0.6 0.1 - 0.9 x10E3/uL [facility] INSURANCE BILL Eosinophils Absolute 0.2 0.0 - 0.4 x10E3/uL [facility] INSURANCE BILL Basophils Absolute 0.1 0.0 - 0.2 x10E3/uL [facility] INSURANCE BILL Immature Granulocytes 0 Not Estab. % [facility] INSURANCE BILL Immature Granulocytes Absolute 0.0 0.0 - 0.1 x10E3/uL [facility] INSURANCE BILL nRBC NOT NEEDED [facility] INSURANCE BILL Comment:Ancillary determined the test is not needed Comment Hematology NOT NEEDED [facility] INSURANCE BILL Comment: FASTING Ancillary determined the test is not needed Blood BLOOD SPECIMEN / Unknown 04/10/2019 8:45 AM CDT 04/10/2019 Narrative Resulting Agency Comment Lab Testing performed at: [facility] ??[facility] [phone] Tanya Blue DO LAB - HEMATOLOGY ORD ERABLES [facility] INSURANCE BILL [address] [place] [address] documented in this encounter Visit Diagnoses Diagnosis Rheumatoid arthritis with positive rheumatoid factor, involving unspecified site (HCC) Other nursing home (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 Encounter for therapeutic drug level monitoring Encounter for therapeutic drug monitoring Essential hypertension Type 2 diabetes mellitus without complication, without long-term current use of insulin (HCC) documented in this encounter Care Teams Leather Novelty Parts Cutter Relationship Specialty Start Date End Date Tanya Jane MD [address] [place] [address] [place] [address] PCP - General 01/05/18 07/09/24 documented as of this encounter
--- OUTSIDE RECORDS SUMMARY | 2024-11-09 23:16 | XMS_ITS | Encounter Summary ---
Author Organization [facility] Address [address] [facility] [place] [address] Care Team Providers Care Sandwich Counter Attendant Name Role Phone Tanya Jane MD Primary Care Provider [phone] Reason for Visit * Reason Comments Refill Request Encounter Details Date Type Department Care Team (Late st Contact Info) Description 06/24/2020 Refill [facility] [address] [place] [address] Tanya Blue DO [address] [place] [phone] Refill Request Social History Tobacco Use Types [...] Telephone Encounter - Ayah Reyes RN - 06/24/2020 1:25 PM CDT Refill Request Kianna Hill TREVON: 10/30/2019 NOV scheduled: 09/09/2020 LRF: 12/02/2019 Qty Disp:90 tablet # of refills: 3 Labs: 05/06/2020 Allergies: Allergies Allergen Reactions ??? Codeine Nausea and/or Vomiting Pended Medication Order: Requested Prescriptions Pending Prescriptions Disp Refills ??? meloxicam (MOBIC) 7.5 MG tablet [Pharmacy Med Name: MELOXICAM 7.5MG TABLETS] 90 tablet 3 Sig: TAKE 1 TABLET BY MOUTH EVERY DAY NEEDED documented in this encounter Plan of Treatment Upcoming Encounters Date Type Department Care Team (Late st Contact Info) Description 01/09/2025 2:00 PM CDT Office Visit [facility] [address] [place] [address], [place] [phone] Thalia Dunlap MD [facility] [address] [place] [address] 01/09/2025 2:30 PM CDT Office Visit [facility] [address] [place] [address], [place] [address] Matias Lewis III, MD [address] [facility] [address] [place] [address] 02/25/2025 2:30 PM CDT Office Visit [facility] Rheumatology [address] [place] [address], [place] [address] Lonnie Tai MD [address] [facility] [place] [address] documented as of this encounter Visit Diagnoses Diagnosis Rheumatoid arthritis with positive rheumatoid factor, involving unspecified site (HCC)- Primary documented in this encounter Care Teams Sandwich Counter Attendant Relationship Specialty Start Date End Date Tanya Jane MD [address] [place] [address] [place] [address] PCP - General 01/05/18 07/09/24 documented as of this encounter
--- OUTSIDE RECORDS SUMMARY | 2024-11-09 23:16 | XMS_ITS | Encounter Summary ---
Author Organization [facility] Address [address] [facility] [place] [address] Care Team Providers Care Grease Machine Worker Name Role Phone Tanya Jane MD Primary Care Provider [phone] Encounter Details Date Type Department Care Team (Late Contact Info) Description 06/07/2019 Orders Only [facility] [address] [place] [address] Tanya Blue DO [address] [place] [phone] Rheumatoid arthritis with positive rheumatoid factor, involving unspecified site (HCC); Other roasterman (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; Encounter for therapeutic drug [...] Visit [facility] [address] [facility], [place] [phone] Thalia Dunlap MD [address] [facility] [address] [place] [address] 01/09/2025 2:30 PM CDT Office Visit [facility] [address] [facility], [place] [address] Matias Lewis III, MD [address] [facility] 2L [place] [address] 02/25/2025 2:30 PM CDT Office Visit [facility] - Rheumatology [address] [facility], [place] [phone] Lonnie Tai MD [address] [facility] [place] [address] documented as of this encounter Visit Diagnoses Diagnosis Rheumatoid arthritis with positive rheumatoid factor, involving unspecified site (HCC) Other chcf (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 Encounter for therapeutic drug level monitoring Encounter for therapeutic drug monitoring Essential hypertension Type 2 diabetes mellitus without complication, without long-term current use of insulin (HCC) documented in this encounter Care Teams Grease Machine Worker Relationship Specialty Start Date End Date Tanya Jane MD [address] [place] [address] [place] [address] PCP - General 01/05/18 07/09/24 documented as of this encounter
--- OUTSIDE RECORDS SUMMARY | 2024-11-09 23:16 | XMS_ITS | Encounter Summary ---
Author Organization [facility] Address [address] [facility] [place] [address] Care Team Providers Care Ball Assembler Name Role Phone Tanya Jane MD Primary Care Provider [phone] Reason for Visit * Reason Onset Date Comments Nurse Only 12/28/2020 Encounter Details Date Type Department Care Team (Late Contact Info) Description 12/28/2020 Telephone [facility] [address] [place] [phone] Lisette Choe MD No info available Nurse Only Social History Tobacco Use Types Packs/Day Years [...] Telephone Encounter - Ayah Reyes RN - 12/28/2020 10:05 AM CST Called pt and scheduled her for nurse visit. MACHINE OPERATOR * Telephone Encounter - Brenda Vallecillo - 12/28/2020 9:09 AM CST Patient would like to schedule a nurse visit to learn how to give herself injections. Ideally she would like to come in January 07 but there is no appt avail. Please call her Thank you Elba MACHINE OPERATOR documented in this encounter Plan of Treatment Upcoming Encounters Date Type Department Care Team (Late Contact Info) Description 01/09/2025 2:00 PM CDT Office Visit [facility] [address] [facility], [place] [phone] Thalia Dunlap MD [address] [facility] [address] [place] [phone] 01/09/2025 2:30 PM CDT Office Visit [facility] [address] [facility], [place] [address] Matias Lewis III, MD [address] [facility] 2[address] [place] [phone] 02/25/2025 2:30 PM CDT Office Visit [facility] - Rheumatology [address] [facility], [place] [address] Lonnie Tai MD [address] [facility] [place] [address] documented as of this encounter Visit Diagnoses Not on filedocumented in this encounter Care Teams Ball Assembler Relationship Specialty Start Date End Date Tanya Jane MD [address] [place] [address] PCP - General 01/05/18 07/09/24 documented as of this encounter
--- OUTSIDE RECORDS SUMMARY | 2024-11-09 23:16 | XMS_ITS | Encounter Summary ---
Author Organization [facility] Address [address] [facility] [place] [address] Care Team Providers Care Cash Room Clerk Name Role Phone Tanya Jane MD Primary Care Provider [phone] Reason for Visit * Reason Comments Refill Request Encounter Details Date Type Department Care Team (Late Contact Info) Description 11/19/2019 Refill [facility] [address] [place] [address] Tanya Blue DO [address] [place] [phone] Refill Request Social History Tobacco Use Types [...] Visit [facility] [address] [facility], [place] [phone] Thalia Dunlap MD [address] [facility] [address] [place] [phone] 01/09/2025 2:30 PM CDT Office Visit [facility] [address] [facility], [facility] [place] [phone] Matias Lewis III, MD [address] [place], [place] [address] [address]L [place] [address] 02/25/2025 2:30 PM CDT Office Visit [facility] - Rheumatology [address] [facility], [place] [address] Lonnie Tai MD [address] [facility] [place] [address] documented as of this encounter Visit Diagnoses Not on filedocumented in this encounter Care Teams Cash Room Clerk Relationship Specialty Start Date End Date Tanya Jane MD [address] [place] [address] [place] [address] PCP - General 01/05/18 07/09/24 documented as of this encounter
--- OUTSIDE RECORDS SUMMARY | 2024-11-09 23:16 | XMS_ITS | Encounter Summary ---
Author Organization [facility] Address [address] [facility] [place] [address] Care Team Providers Care Car Rental Service Attendant Name Role Phone Tanya Jane MD Primary Care Provider [phone] Encounter Details Date Type Department Care Team (Latest Contact Info) Description 04/10/2020 Orders Only [facility] [address] [place] [address] Tanya Blue DO [address] [place] [phone] Rheumatoid arthritis with positive rheumatoid factor, involving unspecified site (HCC); Other care home (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; Encounter for therapeutic drug level monitoring; 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-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 (nsaid); 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; Encounter for therapeutic drug monitoring Social History [...] Visit [facility] [address] [facility], [place] [phone] Thalia Dunlap MD [facility] [address] [place] [phone] 01/09/2025 2:30 PM CDT Office Visit [facility] [address] [facility], [place] [address] Matias Lewis III, MD [address] [facility] [address] [address] 02/25/2025 2:30 PM CDT Office Visit [facility] - Rheumatology [address] [facility], [place] [address] Lonnie Tai MD [address] [facility] 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 Encounter for therapeutic drug monitoring URINALYSIS W/MICROSCOPIC REFLEX TO CULTURE Routine 05/06/2020 7:53 AM CDT Rheumatoid arthritis with positive rheumatoid factor, involving unspecified site (HCC) Other care home (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 Encounter for therapeutic drug level monitoring 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-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 (nsaid) FPC current use of 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 Encounter for therapeutic drug monitoring CULTURE URINE COMPREHENSIVE Routine 05/06/2020 7:53 AM CDT Rheumatoid arthritis with positive rheumatoid factor, involving unspecified site (HCC) Other care home (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 Encounter for therapeutic drug level monitoring 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-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 (nsaid) [facility]PC current use of 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 Encounter for therapeutic drug monitoring C-REACTIVE PROTEIN Routine 05/06/2020 7: 53 AM CDT Rheumatoid arthritis with positive rheumatoid factor, involving unspecified site (HCC) Other care home (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 Encounter for therapeutic drug level monitoring [facility] (current) use of non-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-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 (nsaid) 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 Encounter for therapeutic drug monitoring ERYTHROCYTE SEDIMENTATION RATE Routine 05/06/2020 7:53 AM CDT Rheumatoid arthritis with positive rheumatoid factor, involving unspecified site (HCC) 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 Encounter for therapeutic drug level monitoring 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-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 (nsaid) 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 Encounter for therapeutic drug monitoring CBC W AUTO DIFFERENTIAL Routine 05/06/2020 7:53 AM CDT Rheumatoid arthritis with positive rheumatoid factor, involving unspecified site (HCC) Other care home (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 Encounter for therapeutic drug level monitoring 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-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 (nsaid) FPC current use of 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 Encounter for therapeutic drug monitoring COMPREHENSIVE METABOLIC PANEL Routine 05/06/2020 7:53 AM CDT Rheumatoid arthritis with positive rheumatoid factor, involving unspecified site (HCC) Other care home (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 Encounter for therapeutic drug level monitoring 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-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 (nsaid) 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 Encounter for therapeutic drug monitoring documented in this encounter Results * (ABNORMAL) CULTURE URINE COMPREHENSIVE (05/06/2020 7:53 AM CDT) Urine Culture Comprehensive Final report(A) [facility] INSURANCE [...] Agency Comment Lab Testing performed at: [facility] [place] [address] [facility] ??[facility] [id number] Tanya Blue DO LAB - MICROBIOLOGY O RDERABLES Performing Organization Address City/[facility]/ZIP Co de Phone Number [facility] INSURANCE BILL [address] [place] [address] * URINALYSIS MICROSCOPIC ONLY REFLEXED (05/06/2020 7:53 AM CDT) WBC UA 0-5 0 - 5 /hpf [...] the test is not needed. Mucus UA NOT NEEDED [facility] INSURANCE BILL Comment:Ancillary determined the test is not needed. Bacteria UA None seen None seen/Few [facility] INSURANCE BILL Yeast UA NOT NEEDED [facility] INSURANCE BILL Comment:Ancillary determined the test is not needed. Trichomonas UA NOT NEEDED [facility] INSURANCE BILL Comment:Ancillary determined the test is not needed. Comment Urine NOT NEEDED [facility] INSURANCE BILL Comment: FASTING Ancillary determined the test is not needed. 05/06/2020 7:53 AM CDT 05/06/2020 Narrative Resulting Agency Comment Lab Testing performed at: [facility] [address] ??[facility] [id number] Tanya Blue DO LAB - URINALYSIS ORD ERABLES Performing Organization Address [facility]/ZIP Co de Phone Number [facility] INSURANCE BILL [address] [place] [address] * (ABNORMAL) URINALYSIS W/MICROSCOPIC REFLEX TO CULTURE (05/06/2020 7:53 AM CDT) Specific [place] UA 1.008 1.005 - 1.030 [facility] INSURANCE [...] Comment:Ancillary determined the test is not needed. Urinalysis Reflex [facility] INSURANCE BILL Comment: This specimen has reflexed to a Urine Culture. FASTING Urine URINE SPECIMEN OBTAINED BY CLEAN CATCH PROCEDURE / Unknown 05/06/2020 7:53 AM CDT 05/06/2020 Narrative Resulting Agency Comment Lab Testing performed at: [facility] ??[facility] [id number] Tanya Blue DO LAB - URINALYSIS ORD ERABLES [facility] INSURANCE BILL [address] [place] [address] * C-REACTIVE PROTEIN (05/06/2020 7:53 AM CDT) Pathologist [facility] C-Reactive Protein 6 0 - 10 mg/L [facility] INSURANCE BILL Comment:FASTING Blood BLOOD SPECIMEN / Unknown 05/06/2020 7:53 AM CDT 05/06/2020 Narrative Resulting Agency Comment Lab Testing performed at: [facility] ??[facility] [id number] Tanya Zackery Blue DO LAB - CHEMISTRY ORDE RABMEGAN [facility] INSURANCE BILL [address] [place] [address] * ERYTHROCYTE SEDIMENTATION RATE (05/06/2020 7:53 AM CDT) Erythrocyte Sedimentation Rate Westergren 2 0 - 40 mm/hr [facility] INSURANCE BILL Comment:FASTING Blood BLOOD SPECIMEN / Unknown 05/06/2020 7:53 AM CDT 05/06/2020 Narrative Resulting Agency Comment Lab Testing performed at: [facility] [address] ??[facility] [id number] Tanya A Mirza DEE LAB - HEMATOLOGY ORD ERABLES [facility] INSURANCE BILL [address] [place] [address] * (ABNORMAL) COMPREHENSIVE METABOLIC PANEL (05/06/2020 7:53 AM CDT) Glucose 133(H) 65 - 99 mg/dL [facility] INSURANCE BILL BUN 8 8 - 27 mg/dL [facility] INSURANCE BILL Creatinine 0.98 0.57 - 1.00 mg/dL [facility] INSURANCE BILL eGFR by MDRD 60 >59 mL/min/1.7 3 [facility] INSURANCE BILL eGFR by MDRD 69 >59 mL/min/1.7 3 [facility] INSURANCE BILL BUN/Creatinine Ratio 8(L) 12 - 28 [facility] INSURANCE BILL Sodium 141 134 - 144 mmol/L [facility] INSURANCE BILL Potassium 3.4(L) 3.5 - 5.2 mmol/L [facility] INSURANCE BILL Chloride 102 96 - 106 mmol/L [facility] INSURANCE BILL CO2 23 20 - 29 mmol/L [facility] INSURANCE BILL Calcium 9.1 8.7 - 10.3 mg/dL [facility] INSURANCE BILL Protein Total 6.0 6.0 - 8.5 g/dL [facility] INSURANCE BILL Albumin 3.9 3.8 - 4.8 g/dL [facility] INSURANCE BILL Globulin Total 2.1 1.5 - 4.5 g/dL [facility] INSURANCE BILL Albumin/Globulin Ratio 1.9 1.2 - 2.2 [facility] INSURANCE BILL Bilirubin Total 0.4 0.0 - 1.2 mg/dL [facility] INSURANCE BILL Alkaline Phosphatase 92 39 - 117 IU/L [facility] INSURANCE BILL AST 28 0 - 40 IU/L [facility] INSURANCE BILL ALT 25 0 - 32 IU/L [facility] INSURANCE BILL Comment:FASTING Blood BLOOD SPECIMEN / Unknown 05/06/2020 7:53 AM CDT 05/06/2020 Narrative Resulting Agency Comment Lab Testing performed at: [facility] [place] [id number] [facility] ??[facility] [id number] Tanya Blue DO LAB - CHEMISTRY ROBERT MAY [facility] INSURANCE BILL [address] [place] [address] * (ABNORMAL) CBC WITH DIFFERENTIAL (05/06/2020 7:53 AM CDT) WBC 9.1 3.4 - 10.8 x10E3/uL [facility] INSURANCE BILL RBC 2.91(L) 3.77 - 5.28 x10E6/uL [facility] INSURANCE BILL Hemoglobin 9.4(L) 11.1 - 15.9 g/dL [facility] INSURANCE BILL Hematocrit 28.7(L) 34.0 - 46.6 % [facility] INSURANCE BILL MCV 99(H) 79 - 97 fL [facility] INSURANCE BILL MCH 32.3 26.6 - 33.0 pg [facility] INSURANCE BILL MCHC 32.8 31.5 - 35.7 g/dL [facility] INSURANCE BILL RDW 15.3 11.7 - 15.4 % [facility] INSURANCE BILL Platelet Count 320 150 - 450 x10E3/uL [facility] INSURANCE BILL Granulocytes % 73 Not Estab. % [facility] INSURANCE BILL Lymphocytes % 17 Not Estab. % [facility] INSURANCE BILL Monocytes % 6 Not Estab. % [facility] INSURANCE BILL Eosinophils % 2 Not Estab. % [facility] INSURANCE BILL Basophils % 1 Not Estab. % [facility] INSURANCE BILL Immature Cells NOT NEEDED [facility] INSURANCE BILL Comment:Ancillary determined the test is not needed. Granulocytes Absolute 6.6 1.4 - 7.0 x10E3/uL [facility] INSURANCE BILL Lymphocytes Absolute 1.5 0.7 - 3.1 x10E3/uL [facility] INSURANCE BILL Monocytes Absolute 0.6 0.1 - 0.9 x10E3/uL [facility] INSURANCE BILL Eosinophils Absolute 0.1 0.0 - 0.4 x10E3/uL [facility] INSURANCE BILL Basophils Absolute 0.1 0.0 - 0.2 x10E3/uL [facility] INSURANCE BILL Immature Granulocytes 1 Not Estab. % [facility] INSURANCE BILL Immature Granulocytes Absolute 0.1 0.0 - 0.1 x10E3/uL [facility] INSURANCE BILL nRBC NOT NEEDED [facility] INSURANCE BILL Comment:Ancillary determined the test is not needed. Comment Hematology NOT NEEDED [facility] INSURANCE BILL Comment: FASTING Ancillary determined the test is not needed. 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
--- OUTSIDE RECORDS SUMMARY | 2024-11-09 23:16 | XMS_ITS | Encounter Summary ---
Author Organization [facility] Address [address] [facility] [place] [address] Care Team Providers Care Pecan Grower Name Role Phone Tanya Jane MD Primary Care Provider [phone] Reason for Visit * Reason Comments Arthritis Encounter Details Date Type Department Care Team (Late st Contact Info) Description 11/14/2018 11:00 AM HOROLOGIST Office Visit [facility] [address] [place] [address] Tanya Blue DO [address] [facility] [address] [place] [phone] Rheumatoid arthritis with positive rheumatoid factor, involving unspecified site (HCC) (Primary Dx); Other exterminator termite (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; Encounter for therapeutic [...] Sign Reading Time Taken Comments Blood Pressure 150/100 11/14/2018 10:40 AM HOROLOGIST Pulse 80 11/14/2018 10:40 AM HOROLOGIST Temperature 37.5 ??C (99.5 ??F) 11/14/2018 10:[address] Respiratory Rate - - Oxygen Saturation - - Inhaled Oxygen Concentration - - Weight 78 kg (172 lb) 11/14/2018 10:40 AM HOROLOGIST Height 174 cm (5' 8.5 ) 11/14/2018 10:40 AM HOROLOGIST Body Mass Index 25.77 11/14/2018 10:40 AM HOROLOGIST documented in this encounter Patient Instructions * Patient Instructions* Tanya Blue DO - 11/14/2018 11:15 AM HOROLOGIST 1. Continue lefluonmide 20 mg daily and meloxicam 7.5 mg daily. 2. Labs every 8-10 weeks at [facility], new orders written. 3. Continue calcium, vitamin D. 4. Follow up with PCP regarding your blood pressure. 5. Follow up in 4-5 months. 6. Call with any questions. If you need to change or cancel your Rheumatology appointment - At the [facility] Building at [address], [address], call [phone] If you need a refill request, have your pharmacy fax a request to [phone] If you need to leave a message for Dr. Blue, you can send her an electronic message via [employer] voicemail at [phone]. Her office FAX number is [phone]. For after hours emergency only, you can call the [facility] asphalt machine operator at [phone] and ask for the S[employer] D[employer] neon electrician to be paged. LOGIST documented in this encounter Progress Notes * Arabella Bose MD - 11/14/2018 11:28 AM CST Attending Physician Supervisory Note I personally interviewed and examined the patient and agree with the doctor above. Interim history: since last visit in Jun, feels well, no AM stiffness, occas knee popping, has persistent swelling of 3rd PIP, still regularly taking meds, walks for exercise. Use MJ, does not smokecigarettes. Blood pressure (!) 150/100, pulse 80, temperature 99.5 ??F (37.5 ??C), height 5' 8.5 (1.74 m), weight 172 lb (78 kg). Gen: pleasant, NAD, AOX3 Skin: no rash CV: RRR NS1 and S2 ENT: no ulcers, poor dentition Lungs: CTAB MS: elbows have FROM, no active synovitis, decreased flexion bilateral wrists, hallux valgus deformity of great toes, small cystic swelling on plantar surface of right MTP (non-tender) with cockup deformities of toes 11/06/17: ALT 38*, AST 26, CRP 2.8, CBC nl, ESR 2, Assessment and Plan: 1. Rheumatoid Arthritis, anti CCP, +RF, erosive-currently stable on exam, last xrays (outside) showed no erosions, requested she get Xrays done here to be read by [facility]ology. Continue meds the same with labs every 8 weeks for monitoring, advised again ETOH use. Arabella Bose MD LOGIST * Tanya Blue DO - 11/14/2018 10:40 AM CST [facility] Rhe[facility]ology Followup Clinic Visit PCP: Tanya Jane MD Diagnosis/Problem(s): 1. Rheumatoid arthritis with positive rheumatoid factor, involving unspecified site 2. Other assisted (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 3. Encounter for therapeutic drug level monitoring 4. Essential hypertension 5. Type 2 diabetes mellitus without complication, without long-term current use of insulin Interval History: Kianna Hill is a 68 y.o. White/ female who presents for follow up of seropositive rheumatoid arthritis (+RF, +CCP Ab) diagnosed around 2013 with known erosive disease who presents for follow up. She was last seen in June 2018. Since patient was last seen, she continues to feel well. She has intermittent swelling and pain of the right 3rd PIP but no pain. She denies any morning stiffness. Knees pop occasionally with gettingup but overall is stable. She continues on Arava 20 mg daily and Meloxicam 7.5 mg daily. She is also on a Calcium, Vitamin D supplement. She is still walking a lot, mostly around her house in the winter but she always tries to stay moving. She has been drinking more alcohol lately due to increased stress. She has also had some issues with her recurrent bronchitis, which usually happens during the winter. She is not currently short of breath or having a productive cough. She does have some toenail fungus today. Blood pressure is high. She notes that it typically does run high. She did have a flu shot this year. ROS: General: -fatigue, -fever, -wt loss with poor appetite, +night sweats, -daily functioning limited HEENT: -dry eyes, +dry mouth, -vision changes, -eye redness, -eye pain, -oral ulcers CV: -chest pain, -orthopnea, -palpitations, - LE edema Resp: -cough, -shortness of breath, -pleuritic pain GI: -dysphagia, -reflux, -abd pain, -constipation, -diarrhea, -nausea, - vomiting, -blood in stools : -urine changes, -dysuria, -hematuria [facility]: +arthralgia, -myalgia, -muscle weakness, +swelling, -erythema, -warmth, -AM stiffness, -back pain Skin: -rash, -lesions, -ulcers, -hair loss, -Raynauds, -acrocyanosis, -photosensitivity Neuro: -BAPTISTE, -paresthesias Psych: Mood is generally good, -depression/anxiety ROS otherwise negative Past Medical History: Diagnosis Date ??? Hypertension ??? Rheumatoid arthritis ??? Type 2 diabetes mellitus Social History Substance Use Topics ??? Smoking status: Former Smoker ??? Smokeless tobacco: Never Used ??? Alcohol use 0.6 oz/week Review of No family history on file. Current Outpatient Prescriptions Medication Sig Dispense Refill ??? Sqfhyvi-Kwcilamfk-Bdnrjzl D (CALCIUM 1200+D3) 600-40-500 MG-MG-UNIT TB24 Take 1 tablet by mouth. ??? Cyanocobalamin (B-12 PO) ??? fenofibrate (LOFIBRA) 160 MG tablet Take 160 mg by mouth. ??? GLIPIZIDE XL 10 MG tablet Take 10 mg by mouth 2 times daily 3 ??? hydroCHLOROthiazide (MICROZIDE) 12.5 MG capsule Take 12.5 mg by mouth DAILY. ??? leflunomide (ARAVA) 20 MG tablet Take 1 tablet by mouth once daily 90 tablet 2 ??? levothyroxine (SYNTHROID) 75 MCG tablet Take 75 mcg by mouth DAILY. ??? losartan (COZAAR) 100 MG tablet Take 100 mg by mouth once daily 4 ??? meloxicam (MOBIC) 7.5 MG tablet Take 1 tablet by mouth once daily 90 tablet 2 ??? metFORMIN (GLUCOPHAGE) 1000 MG tablet Take 1 tablet by mouth BID. 2 ??? [place]-3 Fatty Acids (FISH OIL) 1000 MG capsule Take 1,200 mg by mouth BID. ??? ONETOUCH VERIO test strip TEST DAILY DIRECTED 4 ??? simvastatin (ZOCOR) 20 MG tablet Take 20 mg by mouth. No current facility-administered medications for this visit. Codeine Physical Exam: BP 150/100 Pulse 80 Temp 99.5 ??F (37.5 ??C) Ht 5' 8.5 (1.74 m) Wt 172 lb (78 kg) BMI 25.77 kg/m2 General: normal, appears stated age Skin: Skin color, texture, turgor normal. No rashes or lesions. +onychomyosis of multiple toes on bilateral feet. HEENT: Normocephalic, without obvious abnormality, atraumatic conjunctivae/corneas clear. EOMI, no oral or nasal ulcers, moist mucus membranes, supple neck Lymphatic: No cervical, supraclavicular, axillary, or inguinal adenopathy Back: symmetric, no curvature Chest/Lungs: clear to auscultation bilaterally, normal respiratory effort Heart: RRR, normal S1 and S2, no murmur, no rub Abdomen: soft, non-tender. Bowel sounds normal. No masses, no organomegaly Neurologic: Grossly normal cranial nerves. Muscle strength 5/5 bilaterally. Musculoskeletal Exam: Wrists S0T0 b/l; Decreased flexion in bilateral wrist to 45-50 deg with good extension Right MCP S0T0; Left 2nd/3rd MCP SfT0 others S0T0 Right 3rd PIP S1T0 HN/BN bilaterally along with CMC squaring Knees with mild crepitus S0T0 Ankle crepitus but normal ROM Pes planus Valgus deformity / bony enlargement of 1st MTP bilaterally Cyst on plantar surface of right 1st MTP Labs: Reviewed, including those as noted below 11/06/18 CMP: BUN: 10, Cr: 0.97, ALT: 38, AST: 26 CRP: 2.8 mg/L, ESR: 2 CBC: WBC: 8.2, Hgb: 12.4, Plts: 274,000 UA: negative 06/29/18 CMP: Cr 1.06, ALT 26, AST 21 CRP: 2.9, ESR 2 WBC: WNL 12/27/17 CMP Cr 1.04, Gluc 199, ALP 56, ALT 34, AST 22 CBC Wbc 8.0, Hgb 12.7 (MCV 89), Plts 270k UA abnormal with cx for klebsiella (no symptoms) ESR 2 CRP 0.10 ?? 08/08/17 CMP: Cr 0.98, Gluc 250, ALP 75, ALT 39, AST 24 CBC Wbc 7.4, Hgb 12.8 (MCV 85), Plts 216k UA trace glucose ESR 2, CRP 0.41 ?? 06/30/17 CMP: Cr 0.98, Gluc 163, ALP 68, ALT 32, AST 21 CBC Wbc 7.4, Hgb 11.7 (MCV 85), Plts 204k UA trace estrace ESR 2, CRP 0.48 ?? 04/26/17 CMP: Cr 1.01, Gluc 247, LFT unremarkable CBC unremarkable UA trace gluc, estrace, bact; Cx polymicrobial ESR 5, CRP 0.31 ?? 03/24/17 CMP Cr 0.95, Gluc 226, ALP 50, ALT 39, AST 27 CBC unremarkable UA negative ESR 2 CRP 0.55 ?? 01/26/17 CMP Cr 0.96, Gluc 237, LFT unremarkable CBC Wbc 15.1, Hgb 13.0, Plts 347k UA 1+ glucose, 6-10 Wbc, many bacteria, 10-20 epi cells ESR 5 CRP 2.23 mg/dL Uric Acid 3.5 ?? 08/15/16 CMP Gluc 230, Cr 1.05, Alb 5.2, ALP 95, ALT 31, AST 19 CBC unremarkable Vit D 31 ESR 2 CRP 0.36 UA trace protein, many bacteria, neg culture Hep B cAb non-reactive Hep B sAg < 5 Heb C Ab Non-reactive RF 173 Anti CCP >250 NAN negative Anti SSA/SSB negative ?? 08/26/[address] Rodriguez note not actual lab report TSH 5.54 CMP normal UA normal NAN negative RF >120 Diagnostics/health maintenance: ?? XR Left foot 01/10/18: Mild posterior and slight plantar calcaneal enthesopathy. No fracture, dislocation, periosteal reaction. Small erosions at medial aspect of 1st metatarsal head ?? XR Right foot 01/10/18: Plantar calcaneal enthesopathy. Hallux Valgus and bunion deformity. Osteoarthritic change at first metatarsal-phalangeal joint. No fracture, dislocation, periosteal reaction, or bone destruction ?? XR Left hand 01/10/18: There is mild-moderate polyarticular osteoarthritis, most advanced at first CMC joint. Osteopenia. No acute fracture or traumatic malalignment. No significant erosive changes . ?? XR Right hand 01/10/18: Osteopenia. No acute fracture or traumatic malalignment. There are degenerative changes of the radiocarpal and first CMC joints as well as the first MCP joint. There are mild degenerative changes of the interphalangeal joints. No erosive changes. No focal soft tissue abnormality. No radiopaque foreign bodies. DEXA ([facility]) 02/07/17: L spine BMD 0.977; T-score -0.6 L Femoral neck BMD: 0.864; T-score +0.5 R Femoral neck BMD0.787; T-score -0.6 ?? XR Foot ([facility]) 09/12/16 Right: Hallux Valgus and bunion with mild inferior calcaneal enthesopathy and narrowing at first MTP joint Left: Mild hallux valgus and bunion, mild posterior calcaneal enthesopathy ?? XR left foot 08/2016: Mild hallux valgus and bunion deformity Mild posterior calcaneal enthesopathy ?? XR hands bilateral 07/2016 -IMPRESSION: 1. Very mild osteoarthritis bilaterally. 2. 2 small apparent erosions in the right ulnar styloid process, which could reflect rheumatoid arthritis in the appropriate clinical setting. No other erosions are seen. 3. Osteopenia. 4. Small soft tissue calcifications adjacent to the second and third proximal interphalangeal joints of both hands. Assessment: Kianna Hill is a 68 y.o. White/ female who presents for follow up of: 1. Seropositive erosive RA: (High titer RF, CCP). Most symptomatic in hands and knees. Initially with evidence of synovitis in MTPs, MCPs, and ankles. She has evidence of erosions on xrays at ulnar styloid but deferred early therapy previously due to family issues. She was started on LEF 20 mg daily (01/2017) - patient concerned regarding EtOH use and MTX. Her labs show normal inflammatory markersand Rapid 3 continues to be low but will need to watch closely give high titer Ab and positive CCP.Given her increased medication and issues with cross- reactivity, could consider therapy escalation with Anti-TNF in uncontrolled disease/radiographic progression or HCQ. Had initial hand xrays completed here at [facility] that showed possible erosions. Repeat Xrays in December 2017 were completed elsewhere and there were no comments on erosions. At some point in 2019, will repeat hand xrays here at [facility] to have comparison to 2016 films. 2. Osteopenia: DEXA completed 01/2017, stable continue PO calcium and vitamin D. 3. ETOH use: Cautioned against regular use while on Arava. 4. Onychomyocosis: On bilateral feet. Discussed that this is usually a benign issue until there is problems with hypertrophied toenails in a diabetic patient. Encouraged her to consider seeing a technical account representative if worsens but due to ETOH use, lefluonmide use, not a good candidate for any oral medications due to increased risk of liver toxicity. 5. Elevated blood pressure: High during our last 2 visits, patient reports this is about her baseline. Encouraged PCP follow up to address this issue. ?? Rapid 3 (01/2017): 2.5 Moderate Severity (FN 1.7, PN 3.0, PTGE 3.0) Rapid 3 (04/2017): 1.5 Low Severity (FN 0.7, PN 2.0, PTGE 2.0) Rapid 3 (07/2017): 0.3 near remission (FN 0, PN 0.5, PTGE 0.5) COLEMAN 28 (07/2017): 0.95 remission (TJC 0, SJC 2, ESR 2, GH 5) Rapid 3 (12/2017): 0 remission (FN 0, PN 0, PTGE 0) Rapid 3 (05/2018): 0 remission (FN 0, PN 0, PTGE 0) Plan: 1. Continue current regimen of ?? Mobic 7.5 daily ?? LEF 20 mg daily 2. We recommended: ?? 3X weekly cardiovascular exercise. ?? Stay UTD through PCP for cardiovascular health. 3. Labs/Imaging Ordered: As below at [facility] every 6-8 weeks. Xrays of hands here at [facility] prior to next visit. 4. Return to clinic in about 3-4 mo. 5. If condition worsens, will consider addition of biologic therapy. ?? This patient was seen and the plan of care was discussed with attending physician Dr. Bose. Tanya Blue, DO Rheumatology Fellow [facility] Pager: [phone] The following were ordered during this visit: Orders Placed This Encounter ??? XR HAND RIGHT 2VW Standing Status: Future Standing Expiration Date: 11/14/2019 Order Specific Question: Reason for Exam Answer: eval for erosive disease, history of RF, CCP ??? XR HAND LEFT 2VW Standing Status: Future Standing Expiration Date: 11/14/2019 Order Specific Question: Reason for Exam Answer: eval for erosive disease, history of RF, CCP ??? CBC WITH DIFFERENTIAL Standing Status: Standing Number of Occurrences: 12 Standing Expiration Date: 11/22/2019 ??? COMPREHENSIVE METABOLIC PANEL Standing Status: Standing Number of Occurrences: 12 Standing Expiration Date: 11/22/2019 ??? C-REACTIVE PROTEIN Standing Status: Standing Number of Occurrences: 12 Standing Expiration Date: 11/22/2019 ??? ERYTHROCYTE SEDIMENTATION RATE Standing Status: Standing Number of Occurrences: 12 Standing Expiration Date: 11/22/2019 ??? URINALYSIS W/MICROSCOPIC REFLEX TO CULTURE Standing Status: Standing Number of Occurrences: 12 Standing Expiration Date: 11/22/2019 ??? leflunomide (ARAVA) 20 MG tablet Sig: Take 1 tablet by mouth once daily Dispense: 90 tablet Refill: 2 ??? meloxicam (MOBIC) 7.5 MG tablet Sig: Take 1 tablet by mouth once daily Dispense: 90 tablet Refill: 2 LOGIST documented in this encounter Plan of Treatment Upcoming Encounters Date Type Department Care Team (Late st Contact Info) Description 01/09/2025 2:00 PM CDT Office Visit [facility] [address] [facility], [place] [phone] [place] [address] [place] [address] [address] [place] [phone] 01/09/2025 2:30 PM CDT Office Visit [facility] [address] [facility], [place] [phone] Matias Lewis III, MD [address] [facility] 2L [place] [address] 02/25/2025 2:30 PM CDT Office Visit [facility] - Rheumatology [address] [facility], [place] [address] Lonnie Tai MD [address] [facility] [place] [address] documented as of this encounter Results * XR HAND LEFT 2VW (04/17/2019 8:38 [...] the right hand and the left hand datedO2015. Findings: Right hand: The erosions that were [...] Blue DO DIAGNOSTIC IMAGING O RDERABLES * XR HAND RIGHT 2VW (04/17/2019 8:38 [...] Tanya Blue DO DIAGNOSTIC IMAGING O RDERABLES documented in this encounter Visit Diagnoses Diagnosis Rheumatoid arthritis with positive rheumatoid factor, involving unspecified site (HCC)- Primary Other exterminator termite (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 Encounter for therapeutic drug level monitoring Encounter for therapeutic drug monitoring Essential hypertension Type 2 diabetes mellitus without complication, without long-term current use of insulin (HCC) Rheumatoid arthritis with positive rheumatoid factor, involving unspecified site (HCC) Other exterminator termite (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 Encounter for therapeutic drug level monitoring Encounter for therapeutic drug monitoring Essential hypertension Type 2 diabetes mellitus without complication, without long-term current use of insulin (HCC) documented in this encounter Care Teams Pecan Grower Relationship Specialty Start Date End Date Tanya Jane MD [address] [place] [address] DAVID Jackman [phone] PCP - General 01/05/18 07/09/24 documented as of this encounter
--- OUTSIDE RECORDS SUMMARY | 2024-11-09 23:16 | XMS_ITS | Encounter Summary ---
Author Organization [facility] Address [address] [facility] [place] [address] Care Team Providers Care Granular Operator Name Role Phone Tanya Jane MD Primary Care Provider [phone] Encounter Details Date Type Department Care Team (Late Contact Info) Description 04/26/2019 Orders Only [facility] [address] [place] [address] Tanya Blue DO [address] [place] [phone] Rheumatoid arthritis with positive rheumatoid factor, involving unspecified site (HCC); Other long chain quiller tender (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; Encounter for therapeutic drug [...] Visit [facility] [address] [facility], [place] [phone] Thalia Dunlap MD [address] [facility] [address] [place] [address] 01/09/2025 2:30 PM CDT Office Visit [facility] - [place] [address] [facility], [place] [address] Matias Lewis III, MD [address] [facility] [address] [place] [phone] 02/25/2025 2:30 PM CDT Office Visit [facility] - Rheumatology [address] [facility], [place] [phone] Lonnie Tai MD [address] [facility] [place] [address] documented as of this encounter Visit Diagnoses Diagnosis Rheumatoid arthritis with positive rheumatoid factor, involving unspecified site (HCC) Other fpc (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 Encounter for therapeutic drug level monitoring Encounter for therapeutic drug monitoring Essential hypertension Type 2 diabetes mellitus without complication, without long-term current use of insulin (HCC) documented in this encounter Care Teams Granular Operator Relationship Specialty Start Date End Date Tanya Jane MD [address] [place] [address] [place] [address] PCP - General 01/05/18 07/09/24 documented as of this encounter
--- OUTSIDE RECORDS SUMMARY | 2024-11-09 23:16 | XMS_ITS | Encounter Summary ---
Author Organization [facility] Address [address] [facility] [place] [address] Care Team Providers Care Animal Anatomy Teacher Name Role Phone Tanya Jane MD Primary Care Provider Reason for Visit * Reason Comments Refill Request Encounter Details Date Type Department Care Team (Late Contact Info) Description 05/29/2020 Refill [facility] [address] [place] [address] Tanya Blue, [address] [place] [phone] Refill Request Social History Tobacco Use Types [...] Telephone Encounter - Jo Ann Haile - 05/29/2020 2:50 PM CDT Refill Request Kianna Hill TREVON 10.30.19 NOV 09.09.20 Allergies: Allergies Allergen Reactions ??? Codeine Nausea and/or Vomiting Pended Medication Order: Requested Prescriptions Pending Prescriptions Disp Refills ??? leflunomide (ARAVA) 20 MG tablet [Pharmacy Med Name: LEFLUNOMIDE 20MG TABLETS] 90 tablet 2 Sig: TAKE 1 TABLET BY MOUTH EVERY DAY documented in this encounter Plan of Treatment Upcoming Encounters Date Type Department Care Team (Late Contact Info) Description 01/09/2025 2:00 PM CDT Office Visit [facility] [address] [facility], [place] [phone] Thalia Dunlap MD [address] [facility] [address] [place] [phone] 01/09/2025 2:30 PM CDT Office Visit [facility] [address] [place] [address], [place] [address] Matias Lewis III, MD [address] [facility] [address] [place] [phone] 02/25/2025 2:30 PM CDT Office Visit [facility] - Rheumatology [address] [place] [address], [place] [phone] Lonnie Tai MD [address] [facility] [place] [address] documented as of this encounter Visit Diagnoses Not on filedocumented in this encounter Care Teams Animal Anatomy Teacher Relationship Specialty Start Date End Date Tanya Jane MD [address] [place] [address] [place] [address] PCP - General 01/05/18 07/09/24 documented as of this encounter
--- OUTSIDE RECORDS SUMMARY | 2024-11-09 23:16 | XMS_ITS | Encounter Summary ---
Author Organization 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; Encounter for therapeutic drug [...] Visit [facility] - [facility] [address] [facility], [place] [phone] Thalia Dunlap MD [address] [facility] [address] [place] [phone] 01/09/2025 2:30 PM CDT Office Visit [facility] - [facility] [address] [facility], [place] [phone] Matias Lewis III, MD [address] [facility] [address] [place] [phone] 02/25/2025 2:30 PM CDT Office Visit [facility] - Rheumatology [address] [facility], [place] [phone] Lonnie Tai MD [address] [facility] [place] [address] documented as of this encounter Visit Diagnoses Diagnosis Rheumatoid arthritis with positive rheumatoid factor, involving unspecified site (HCC) Other half-way (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 Encounter for therapeutic drug level monitoring Encounter for therapeutic drug monitoring Essential hypertension Type 2 diabetes mellitus without complication, without long-term current use of insulin (HCC) documented in this encounter Care Teams Editing Internship Relationship Specialty Start Date End Date Tanya Jane MD [address] [place] [address] [place] [address] PCP - General 01/05/18 07/09/24 documented as of this encounter
--- OUTSIDE RECORDS SUMMARY | 2024-11-09 23:16 | XMS_ITS | Encounter Summary ---
Author Organization 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; Encounter for therapeutic drug level monitoring Social History Tobacco Use Types Packs/Day [...] Sign Reading Time Taken Comments Blood Pressure 126/78 01/07/2021 10:48 AM CDT Pulse 80 01/07/2021 10:48 AM CDT Temperature 36.4 ??C (97.5 ??F) 01/07/2021 10:48 AM C DT Respiratory Rate - - Oxygen Saturation - - Inhaled Oxygen Concentration - - Weight 76.7 kg (169 lb) 01/07/2021 10:48 AM CDT Height 167.6 cm (5' 6 ) 01/07/2021 10:48 AM CDT Body Mass Index 27.28 01/07/2021 10:48 AM CDT documented in this encounter Progress Notes * Miriam Estrada LPN - 01/07/2021 11:10 AM CDT Patient here for injection training for new to her medication, Humira pen. She has brought her own supply for today's visit. Went over drug side effects and general introduction to Pen. Informed how to give medication then med was administered in office. Patient had no questions. Clinic number given for any questions/concerns for future. Highlighted Humira's 800# on packaging also. Patient gave ADAPTED PHYSICAL EDUCATION SPECIALIST a letter from her Medicare insurance showing that they have given her a 30+-day supply. No PA found in her Chart. Document copied and given to JUNIOR Poon to proceed with paperwork. After approval, we will sign her up for Humira Complete program with Javier for program access. documented in this encounter Plan of Treatment Upcoming Encounters Date Type Department Care Team (Late st Contact Info) Description 01/09/2025 2:00 PM CDT Office Visit [facility] [address] [place] [address], [place] [address] Thalia Dunlap MD [address] [place] [address] [address] [place] [address] 01/09/2025 2:30 PM CDT Office Visit [facility] [address] [place] [address], [place] [address] Matias Lewis III, MD [address] [place] [address] [address] [address] 02/25/2025 2:30 PM CDT Office Visit [facility] - Rheumatology [address] [place] [address], [place] [address] Lonnie Tai MD [address] [facility] 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 [address] PCP - General 01/05/18 07/09/24 documented as of this encounter
--- OUTSIDE RECORDS SUMMARY | 2024-11-09 23:16 | XMS_ITS | Encounter Summary ---
Author Organization [facility] Address [address] [place] [address] Care Team Providers Care Assembler Watch Train Name Role Phone Tanya Jane MD Primary Care Provider [phone] Reason for Visit * Reason Onset Date Comments MEDICATION REFILL 07/16/2018 Encounter Details Date Type Department Care Team (Late Contact Info) Description 07/16/2018 Refill [facility] [address] [place] [address] Tanya Blue DO [address] [place] [phone] MEDICATION REFILL Social History Tobacco Use Types [...] encounter Miscellaneous Notes * Telephone Encounter - Tanya Blue DO - 07/17/2018 12:13 PM CDT Arava refilled. documented in this encounter Plan of Treatment Upcoming Encounters Date Type Department Care Team (Late Contact Info) Description 01/09/2025 2:00 PM CDT Office Visit [facility] [address] [facility], [place] [phone] Thalia Dunlap MD [address] [place] [address] 01/09/2025 2:30 PM CDT Office Visit [facility] [address] [place] [address], [place] [address] Matias Lewis III, MD [address] [facility] 2[address] [place] [address] 02/25/2025 2:30 PM CDT Office Visit [facility] - Rheumatology [address] [place] [address], [place] [address] Lonnie Tai MD [address] [facility] [place] [address] documented as of this encounter Visit Diagnoses Not on filedocumented in this encounter Care Teams Assembler Watch Train Relationship Specialty Start Date End Date Tanya Jane MD [address] [place] [address] [place] [address] PCP - General 01/05/18 07/09/24 documented as of this encounter
--- OUTSIDE RECORDS SUMMARY | 2024-11-09 23:16 | XMS_ITS | Encounter Summary ---
Author Organization [facility] Address [address] [place] [address] Care Team Providers Care Assistant Child Care Teacher Name Role Phone Tanya Jane MD Primary Care Provider [phone] Encounter Details Date Type Department Care Team (Latest Contact Info) Description 02/28/2020 Orders Only [facility] [address] [place] [address] Tanya Blue DO [address] [place] [address] Rheumatoid arthritis with positive rheumatoid factor, involving unspecified site (HCC); Other fci (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; Encounter for therapeutic drug level monitoring; 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-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 (nsaid); penitentiary current use of 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; Encounter for [...] Visit [facility] [address] [facility], [place] [address] Thalia Dunlap MD [facility] [facility] [address] [place] [phone] 01/09/2025 2:30 PM CDT Office Visit [facility] [address] [facility], [place] [address] Matias Lewis III, MD [address] [facility] [address] [address] 02/25/2025 2:30 PM CDT Office Visit [facility] - Rheumatology [address] [facility], [place] [address] Lonnie Tai MD [address] [facility] 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 [address] PCP - General 01/05/18 07/09/24 documented as of this encounter
--- OUTSIDE RECORDS SUMMARY | 2024-11-09 23:16 | XMS_ITS | Encounter Summary ---
Author Organization [facility] Address [address] [facility] [place] [address] Care Team Providers Care Surg Physician Asst Name Role Phone Tanya Jane MD Primary Care Provider [phone] Reason for Visit * Reason Comments Follow-up RA Encounter Details Date Type Department Care Team (Late st Contact Info) Description 04/17/2019 9:00 AM CDT Office Visit [facility] [address] [place] [address] Tanya Blue DO [address] [place] [phone] Rheumatoid arthritis with positive rheumatoid factor, involving unspecified site (HCC) (Primary Dx); Other detention (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; Encounter for therapeutic drug level monitoring; Vitamin D deficiency; 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 Continue lefluonmide 20 mg daily. 2. If you are taking Meloxicam every day, you can try to stop taking that. If you have increased pain, you can resume it. Otherwise, just take as needed. 3. Labs every 10-12 weeks, next in June. 4. Call with questions. 5. Follow up in 6 months. If you need to change or cancel your Rheumatology appointment - At the [facility] at [address] [place] [address], [address], call [phone] If you need a refill request, have your pharmacy fax a request to [phone] If you need to leave a message for Dr. Blue, you can send her an electronic message via [employer] voicemail at [phone]. Her office FAX number is [phone]. For after hours emergency only, you can call the [facility] drying frame operator at [phone] and ask for the Filter Tender extruder operator horizontal to be paged. documented in this encounter Progress Notes * Elisa Marin MD - 04/17/2019 9:44 AM CDT Rheumatology Attending Cosign Note I saw Kianna Hill, a 68 year old female today for follow up visit in the Rheumatology Clinic with Dr Blue for the following diagnoses: 1. Rheumatoid arthritis with positive rheumatoid factor, involving unspecified site 2. 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 Encounter for therapeutic drug level monitoring 4. Vitamin D deficiency 5. USP (current) use of non-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-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 (nsaid) We have discussed this patient and I have interviewed and examined the patient myself. I agree withher note, exam, assessment and plan. Pt prev seen by Dr Bose RA - erosive - RF+, anti CCP Ab ; for last year has been well controlled - in remission by activitymeasures - Currently on leflunomide - possibly meloxicam - maybe not daily -pt not sure ROS - otherwise neg - Exam: Gen exam - unremarkable MS: Nl ROM shoulders and elbows - S0T0 Bilat wrists sl warm - S0T0 - nl ROM Bilat MCP 2,3 synovial thickening R digit 3 - sl FC LE - S0T0 - no tenderness Strength 5/+5 Lab ESR 2 CRP -3 mg/L As per Dr Blue Diagnostics: Recent radiographs -dnoe because of concern for risk (high titers - no clinical sx) - read as interval improvement of erosions Assessment/Plan: Overall clinically stable - hx of erosive dx -improved - clinically in remission on medications - Could take meloxicam prn - if she is taking it daily - Will re-check RF and anti CCP - may consider dec in leflunomide in future - I was involved in the clinical decision making and agree with the assessment. 04/17/2019 Elisa Marin M.D. * Tanya Blue DO - 04/17/2019 8:03 AM CDT [facility] Rheumatology Followup Clinic Visit PCP: Tanya Jane MD Diagnosis/Problem(s): 1. Rheumatoid arthritis with positive rheumatoid factor, involving unspecified site 2. Other detention (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 3. Encounter for therapeutic drug level monitoring 4. Vitamin D deficiency 5. 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 She was last seen in October 2018. Patient previously followed by myself and Dr. Bose, she is new to Dr. Marin today. Since patient was last seen, she continues to feel well. She has been in [place] since her lastvisit caring for her brother who was ill. She felt pretty well while she was there. She did recently go fishing and had some pain in her right wrist but that subsided quickly. She does have occasional aches and pains with changes in weather but has overall been feeling really good. She continues on Arava 20 mg daily. She is unsure if she is taking the Meloxicam daily. She is alsoon a Calcium, Vitamin D supplement. 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 She does not have any structured exercise. ROS: General: -fatigue, -fever, -wt loss with [...] Outpatient Prescriptions Medication Sig Dispense Refill ??? Azvvlej-Idbxayjkt-Dbvkqzq D (CALCIUM 1200+D3) 600-40-500 MG-MG-UNIT TB24 Take 1 tablet by mouth. ??? cyanocobalamin (VITAMIN B-12) 1000 MCG tablet Take 1,000 mcg by mouth once daily 4 ??? fenofibrate (LOFIBRA) 160 MG tablet Take [...] 1 tablet by mouth BID. 2 ??? Langley-3 Fatty Acids (FISH OIL) 1000 MG capsule Take 1,200 mg by mouth BID. ??? ONETOUCH VERIO test strip TEST DAILY DIRECTED 4 ??? simvastatin (ZOCOR) 20 MG tablet Take 20 mg by mouth. No current facility-administered medications for this visit. Codeine Physical Exam: BP 150/90 (BP SITE: LEFT ARM, BP POSITION: SITTING, BP CUFF SIZE: 11) Pulse 64 Temp 97.4 ??F (36.3 ??C) (Oral) Ht 5' 8.5 (1.74 m) Wt 171 lb (77.6 kg) BMI 25.62 kg/m2 General: normal, appears stated age Skin: [...] MCP SfT0 others S0T0 Right 3rd PIP with flexion contracture. HN/BN bilaterally along with CMC squaring Knees with mild crepitus S0T0 Ankle crepitus but normal ROM Pes planus Valgus deformity / bony enlargement of 1st MTP bilaterally Labs: Reviewed, including those as noted below. 04/10/19 CMP: Cr: 0.96, ALT: 25, AST: 24 CRP: 3, ESR; 2 CBC: WBC: 7.5, Hgb: 11.7, Plts: 283,000 UA: polymicrobial growth 11/06/18 CMP: BUN: 10, Cr: 0.97, ALT: [...] normal NAN negative RF >120 Diagnostics/health maintenance: Xray b/l hand 04/17/19: Right hand: The erosions that were previously seen at the ulnar styloid process are less conspicuous on today's examination consistent with partial healing. No additional erosions are identified. There is mild osteoarthritis at a few joints. A fracture of the tuft of the third distal phalanx is new when compared to the prior examination. No surrounding soft tissue swelling is seen. ?? Left hand: No acute fracture or dislocation is seen. Generally mild osteoarthritis is seen at a few joints, greatest at the first carpometacarpal joint where it is moderate. No surrounding soft tissue swelling is seen. ? Impression: 1. Right hand: Interval healing of erosions at the ulnar styloid process. No new erosions. Mild osteoarthritis. New fracture of the tuft of the third distal phalanx since 2016. This is age-indeterminate and could be subacute. Please correlate with history and physical examination. 2. Left hand: Osteoarthritis, greatest at the first carpometacarpal joint. No erosions identified. ? XR Left foot 01/10/18: Mild posterior and [...] tissue abnormality. No radiopaque foreign bodies. DEXA ([facility]) 02/07/17: L spine BMD 0.977; T-score -0.6 L Femoral neck BMD: 0.864; T-score +0.5 R Femoral neck BMD0.787; T-score -0.6 ?? XR Foot ([facility]) 09/12/16 Right: Hallux Valgus and bunion with [...] hands. Assessment: Kianna Hill is a 68 year old White/ female who presents for follow up of: 1. Seropositive erosive RA: (High titer RF, CCP). Most symptomatic in hands and knees. Initially with evidence of synovitis in MTPs, MCPs, and ankles. She has evidence of erosions on xrays at ulnar styloid but deferred early therapy previously due to family issues. She was started on LEF 20 mg daily (01/2017) . Her labs show normal inflammatory markers and Rapid 3 continues to be low but will needto watch closely give high titer Ab and positive CCP. We were concerned about progression given herhigh titer CCP and RF but xrays repeated today shows interval improvement of her erosion at the ulnar styloid and clinically, she appears to be in remission by our measures. 2. Osteopenia: DEXA completed 01/2017, stable continue PO calcium and vitamin D. Will need repeat DEXA at next visit. 3. ETOH use: Cautioned against regular use while on Arava. 4. Onychomyocosis: On bilateral feet. Discussed that this is usually a benign issue until there is problems with hypertrophied toenails in a diabetic patient. Encouraged her to consider seeing a technical operations vice president if worsens but due to ETOH use, [...] Plan: 1. Continue current regimen of ?? LEF 20 mg daily ?? Okay to stop Meloxicam if taking every day. Can take PRN. 2. We recommended: ?? 3X weekly cardiovascular exercise. ?? Stay UTD through PCP for cardiovascular health. 3. Labs/Imaging Ordered: As below at [facility] every 6-8 weeks. Will recheck RF, CCP at next visit asthis may help us decide about decreasing dose of LEF in future. 4. Return to clinic in about 6 months. 5. DEXA with next visit. 6. If condition worsens, will consider addition of biologic therapy. ?? This patient was seen and the plan of care was discussed with attending physician Dr. Marin. Tanya Blue DO Rheumatology Fellow [facility] Office: [phone] The following were ordered during this visit: Orders Placed This Encounter ??? CYCLIC CITRUL PEPTIDE ANTIBODY IGG/IGA (CCP) ??? RHEUMATOID FACTOR BLOOD QUANTITATIVE documented in this encounter Plan of Treatment Upcoming Encounters Date Type Department Care Team (Late st Contact Info) Description 01/09/2025 2:00 PM CDT Office Visit [facility] [address] [facility], [place] [address] Thalia Dunlap MD [address] [facility] [address] [place] [address] 01/09/2025 2:30 PM CDT Office Visit [facility] [facility], [place] [address] Matias Lewis III, MD [address] [facility] 2L [place] [address] 02/25/2025 2:30 PM CDT Office Visit [facility] - Rheumatology [address] [place] [address], [place] [address] Lonnie Tai MD [address] [facility] 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 Encounter for therapeutic drug level monitoring Vitamin D deficiency USP (current) use of non-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-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 (nsaid) Ordered: 04/17/2019 documented as of this encounter Visit Diagnoses Diagnosis Rheumatoid arthritis with positive rheumatoid factor, involving unspecified site (HCC)- Primary 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 [address] PCP - General 01/05/18 07/09/24 documented as of this encounter
--- OUTSIDE RECORDS SUMMARY | 2024-11-09 23:16 | XMS_ITS | Encounter Summary ---
Author Organization [facility] Address [address] [facility] [place] [address] Care Team Providers Care Parts Cataloger Name Role Phone Tanya Jane MD Primary Care Provider [phone] Encounter Details Date Type Department Care Team (Latest Contact Info) Description 12/06/2019 Orders Only [facility] [address] [place] [address] Tanya Blue DO [address] [place] [address] Rheumatoid arthritis with positive rheumatoid factor, involving unspecified site (HCC); Other half-way (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; Encounter for therapeutic drug level monitoring; director long term care (current) use of non-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-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 (nsaid); [facility] current use of 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; Encounter for [...] Visit [facility] [address] [facility], [place] [address] Thalia Dunlap MD [facility] [facility] [address] [place] [address] 01/09/2025 2:30 PM CDT Office Visit [facility] [address] [facility], [place] [address] Matias Lewis III, MD [address] [facility] [address] [address] 02/25/2025 2:30 PM CDT Office Visit [facility] - Rheumatology [address] [facility], [place] [address] Lonnie Tai MD [address] [facility] [place], [place] [phone] documented as of this encounter Visit Diagnoses Diagnosis Rheumatoid arthritis with positive rheumatoid factor, involving unspecified site (HCC) Other half-way (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 Encounter for therapeutic drug level monitoring Encounter for therapeutic drug monitoring [facility] (current) use of non-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-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 (nsaid) director long term care current use of 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 Encounter for therapeutic drug monitoring documented in this encounter Care Teams Parts Cataloger Relationship Specialty Start Date End Date Tanya Jane MD [address] [place] [address] [place] [address] PCP - General 01/05/18 07/09/24 documented as of this encounter
--- OUTSIDE RECORDS SUMMARY | 2024-11-09 23:16 | XMS_ITS | Encounter Summary ---
Author Organization [facility] Address [address] [place] [address] Care Team Providers Care Seconds Inspector Name Role Phone Tanya Jane MD Primary Care Provider [phone] Reason for Visit * Reason Onset Date Comments Rx Authorization 01/15/2021 Humira approval Encounter Details Date Type Department Care Team (Late Contact Info) Description 01/15/2021 Telephone [facility] [address] [place] [phone] Lisette Choe MD No info available Rx Authorization (Humira approval) Social History Tobacco Use Types Packs/Day [...] Telephone Encounter - Ayah Reyes RN - 01/15/2021 4:17 PM CDT PA completed via cover my meds portal with [employer] Medicare part D via cover my meds portal. Received notification of approval for Humira pen 40mg/0.4mL, 2 pens/28 days, effective through 10/22/2021. Reference #: [id number] Cover my meds Blank: [id number] Dx: RA M05.79 documented in this encounter Plan of Treatment Upcoming Encounters Date Type Department Care Team (Late Contact Info) Description 01/09/2025 2:00 PM CDT Office Visit [facility] [address] [facility], [place] [phone] Thalia Dunlap MD [address] [facility] [address] [place] [phone] 01/09/2025 2:30 PM CDT Office Visit [facility] [address] [place] [address], [place] [phone] Matias Lewis III, MD [address] [facility] 2L [place] [phone] 02/25/2025 2:30 PM CDT Office Visit [facility] - Rheumatology [address] [place] [address], [place] [phone] Lonnie Tai MD [address] [facility] [place] [address] documented as of this encounter Visit Diagnoses Not on filedocumented in this encounter Care Teams Seconds Inspector Relationship Specialty Start Date End Date Tanya Jane MD [address] [place] [address] [place] [address] PCP - General 01/05/18 07/09/24 documented as of this encounter
--- OUTSIDE RECORDS SUMMARY | 2024-11-09 23:16 | XMS_ITS | Encounter Summary ---
Author Organization [facility] Address [address] [facility] [place] [address] Care Team Providers Care Controls Engineer Name Role Phone Tanya Jane MD Primary Care Provider Reason for Visit * Reason Onset Date Comments MEDICATION REFILL 10/01/2020 Encounter Details Date Type Department Care Team (Late Contact Info) Description 10/01/2020 Refill [facility] [address] [place] [phone] Lisette Choe MD No info available MEDICATION [...] Telephone Encounter - Ayah Reyes RN - 10/01/2020 10:20 AM CST Refill Request Kianna Hill TREVON: 09/09/20 NOV scheduled: 12/09/20 LRF: 06/24/20 Qty Disp: 90 TAB # of refills: 0 Labs: 09/30/20 Allergies: Allergies Allergen Reactions ??? Codeine Nausea and/or Vomiting Pended Medication Order: Requested Prescriptions Pending Prescriptions Disp Refills ??? 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 documented in this encounter Plan of Treatment Upcoming Encounters Date Type Department Care Team (Late st Contact Info) Description 01/09/2025 2:00 PM CDT Office Visit [facility] [address] [facility], [place] [phone] Thalia Dunlap MD [address] [facility] [address] [place] [phone] 01/09/2025 2:30 PM CDT Office Visit [facility] [address] [facility], [place] [address] Matias Lewis III, MD [address] [facility] [address]L [place] [phone] 02/25/2025 2:30 PM CDT Office Visit [facility] - Rheumatology [address] [place] [address], [place] [phone] Lonnie Tai MD [address] [facility] [place] [address] documented as of this encounter Visit Diagnoses Diagnosis Rheumatoid arthritis with positive rheumatoid factor, involving unspecified site (HCC)- Primary documented in this encounter Care Teams Controls Engineer Relationship Specialty Start Date End Date Tanya Jane MD [address] [place] [address] [place] [phone] PCP - General 01/05/18 07/09/24 documented as of this encounter
--- OUTSIDE RECORDS SUMMARY | 2024-11-09 23:16 | XMS_ITS | Encounter Summary ---
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 Office Visit [facility] [address] [place] [address] Tanya Blue DO [address] [place] [phone] Rheumatoid arthritis with positive rheumatoid factor, involving unspecified site (HCC) (Primary Dx); Other termite treater helper (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; Encounter for therapeutic drug level monitoring; termite treater helper (current) use of non-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-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 (nsaid); termite treater helper current use of 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; Encounter for [...] Sign Reading Time Taken Comments Blood Pressure 162/98 10/30/2019 10:32 AM OIL TRUCK DRIVER Pulse 88 10/30/2019 10:32 AM OIL TRUCK DRIVER Temperature 36.4 ??C (97.5 ??F) 10/30/2019 10:[address] Respiratory Rate - - Oxygen Saturation - - Inhaled Oxygen Concentration - - Weight 75.3 kg (166 lb) 10/30/2019 10:32 AM OIL TRUCK DRIVER Height 174 cm (5' 8.5 ) 10/30/2019 10:32 AM OIL TRUCK DRIVER Body Mass Index 24.87 10/30/2019 10:32 AM OIL TRUCK DRIVER documented in this encounter Patient Instructions * Patient Instructions* Tanya Blue DO - 10/30/2019 11:05 AM OIL TRUCK DRIVER 1. Try to decrease that meloxicam to 4-5 times a week as needed. 2. Continue lefluonmide 20 mg daily. 3. Labs in 3 months, mid december and then right before you come back to see us. 4. Follow up in 6 months. If you need to change or cancel your Rheumatology appointment - At the [facility] at [address], [address], call [phone] If you need a refill request, have your pharmacy fax a request to [phone] If you need to leave a message for Dr. Blue, you can send her an electronic message via [employer] voicemail at [phone]. Her office FAX number is [phone]. For after hours emergency only, you can call the [facility] mutuel machine operator at [phone] and ask for the [employer] oil exploration engineer to be paged. TRUCK DRIVER documented in this encounter Progress Notes * Zoey Fine MD - 10/30/2019 10:58 AM CST Patient seen and examined with fellow Dr. Blue. Please see note for further details. I confirm history, exam, assessment and plan. In addition I note: Interval history: patient is 69 year female, with seropositive RA, previously followed with Dr. Bose/Dr. Marin, who reports having pain in her right wrist ( h/o fracture) she has no joint tenderness or swelling Exam: Vitals: 10/30/19 1032 BP: 162/98 Pulse: 88 Temp: 97.5 ??F (36.4 ??C) Weight: 166 lb (75.3 kg) Height: 5' 8.5 (1.74 m) right wrist bigger with decreased range of motion No other joint tenderness or swelling Heart: RRR Lungs: clear MS 5/5 all four extremities Assessment/Plan: Patient is 69 year old female with Seropositive RA, reports feeling fine no joint pain or swelling 1. Seropositive Rheumatoid arthritis: stable -continue Leflunomide 20 mg daily Change Meloxicam to as needed Check labs to monitor potential toxicity of medicine and disease process F/u 4 -5 months 10/30/2019 10:58 AM See fellow's note for further details Zoey Fine MD TRUCK DRIVER * Tanya Blue DO - 10/30/2019 10:22 AM CST [facility] Rheumatology Followup Clinic Visit PCP: Tanya Jane MD Diagnosis/Problem(s): 1. Rheumatoid arthritis with positive rheumatoid factor, involving unspecified site 2. Other termite treater helper (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 3. Encounter for therapeutic drug level monitoring 4. termite treater helper (current) use of non-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-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 (nsaid) 5. termite treater helper current use of 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 6. Encounter for therapeutic drug monitoring Interval History: Kianna [place] is a 69 year old White/ female who presents for follow up of seropositive rheumatoid arthritis (+RF, +CCP Ab) diagnosed around 2013 with known erosive disease who presents for follow up. She was last seen in March 2019. She has been having a difficult time of late because her younger sister recently unexpectantly. She has been drinking more alcohol than normal for her to cope. She has been very sad. In terms of her arthritis, she has been stable. She remains on lefluonmide 20 mg daily and meloxicam 15 mg daily. At our last visit, we discussed dropping the meloxicam to PRN but she has continued taking regularly. She denies any morning stiffness or swelling. She still gets twinges of pain mostlyin her right wrist, where she previously has a fracture. 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 She does not have [...] ??? Type 2 diabetes mellitus Social History Tobacco Use ??? Smoking status: Former Smoker ??? Smokeless tobacco: Never Used Substance Use Topics ??? Alcohol use: Yes Alcohol/week: 1.0 standard drinks ??? Drug use: Yes Types: Marijuana Review of No family history on file. Current Outpatient Medications Medication Sig Dispense Refill ??? Deahmnp-Kqkpqilma-Kyzuvli D (CALCIUM 1200+D3) 600-40-500 MG-MG-UNIT TB24 Take [...] 1 tablet by mouth once daily ??? leflunomide (ARAVA) 20 MG tablet Take [...] 1 tablet by mouth BID. 2 ??? [place]-3 Fatty Acids (FISH OIL) 1000 MG capsule Take 1,200 mg by mouth BID. ??? ONETOUCH VERIO test strip TEST DAILY DIRECTED 4 ??? simvastatin (ZOCOR) 20 MG tablet Take 20 mg by mouth. ??? triamcinolone acetonide (KENALOG) 0.1 % ointment Apply to affected area 2 times daily as needed5 No current facility-administered medications for this visit. Codeine Physical Exam: BP 162/98 (BP SITE: RIGHT ARM, BP POSITION: SITTING, BP CUFF SIZE: 11) Pulse 88 Temp 97.5 ??F (36.4??C) (Oral) Ht 5' 8.5 (1.74 m) Wt 166 lb (75.3 kg) BMI 24.87 kg/m2 General: normal, appears stated age Skin: [...] S0T0 b/l; Decreased flexion in bilateral wrist (R>L) to 45-50 deg with good extension Right MCP S0T0; Left 2nd/3rd MCP SfT0 others S0T0 Right 3rd PIP with flexion contracture. HN/BN bilaterally along with CMC squaring Knees with mild crepitus S0T0 Ankle crepitus but normal ROM Pes planus Valgus deformity / bony enlargement of 1st MTP bilaterally Labs: Reviewed, including those as noted below. 10/18/2019 CMP: Cr: 1.03, ALT: 26, AST: 22 CMP: WBC: 7.2, Hgb: 11.4, Plts: 305,000 ESR: 2, CRP: 3 mg/L UA: negative 04/10/19 CMP: Cr: 0.96, ALT: 25, AST: [...] carpometacarpal joint. No erosions identified. ?? XR Left foot 01/10/18: Mild posterior [...] tissue abnormality. No radiopaque foreign bodies. DEXA ([facility]) 02/07/17: L spine BMD 0.977; T-score -0.6 L Femoral neck BMD: 0.864; T-score +0.5 R Femoral neck BMD0.787; T-score -0.6 ?? XR Foot ([facility]) 09/12/16 Right: Hallux Valgus and bunion with [...] both hands. Assessment: Kianna Hill is a 69 year old White/ female who presents for follow up of: 1. Seropositive erosive RA: (High titer RF, CCP). Appears in clinical remission at this time. Initially with evidence of synovitis in MTPs, [...] give high titer Ab and positive CCP. 2. Osteopenia: DEXA completed 01/2017, stable continue PO calcium and vitamin D. She needs updated DEXA, to be discussed at next visit. 3. ETOH use: Cautioned against regular use while on Arava. 4. Onychomyocosis: On bilateral feet. 5. Elevated blood pressure: Instructed to follow up with PCP. ?? Rapid 3 (01/2017): 2.5 Moderate Severity [...] As below at [facility] every 6-8 weeks. 4. Return to clinic in about 6 months. 5. DEXA with next visit. 6. If condition worsens, will consider addition of biologic therapy. ?? This patient was seen and the plan of care was discussed with attending physician Dr. Fine. Tanya Blue DO Rheumatology Fellow [facility] Office: [phone] The following were ordered during this visit: Orders Placed This Encounter ??? CBC WITH DIFFERENTIAL Standing Status: Standing Number of Occurrences: 12 Standing Expiration Date: 11/30/2020 ??? COMPREHENSIVE METABOLIC PANEL Standing Status: Standing Number of Occurrences: 12 Standing Expiration Date: 11/30/2020 ??? ERYTHROCYTE SEDIMENTATION RATE Standing Status: Standing Number of Occurrences: 12 Standing Expiration Date: 11/30/2020 ??? C-REACTIVE PROTEIN Standing Status: Standing Number of Occurrences: 12 Standing Expiration Date: 11/30/2020 ??? 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 in this encounter Plan of Treatment Upcoming Encounters Date Type Department Care Team (Late st Contact Info) Description 01/09/2025 2:00 PM CDT Office Visit [facility] [address] [facility], [place] [phone] Thalia Dunlap MD [address] [place] [address] [address] [place] [address] 01/09/2025 2:30 PM CDT Office Visit [facility] - [facility] [facility], [place] [address] Matias Lewis III, MD [address] [facility] [address]L [place] [phone] 02/25/2025 2:30 PM CDT Office Visit [facility] - Rheumatology [address] [facility], [place] [phone] Lonnie Tai MD [address] [facility] [place] [address] documented as of this encounter Visit Diagnoses Diagnosis Rheumatoid arthritis with positive rheumatoid factor, involving unspecified site (HCC)- Primary Other termite treater helper (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 Encounter for therapeutic drug level monitoring Encounter for therapeutic drug monitoring [facility] (current) use of non-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-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 (nsaid) [facility] current use of 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 Encounter for therapeutic drug monitoring documented in this encounter Care Teams Applications Administrator Relationship Specialty Start Date End Date Tanya Jane MD [address] [place] [address] [place] [address] PCP - General 01/05/18 07/09/24 documented as of this encounter
--- OUTSIDE RECORDS SUMMARY | 2024-11-09 23:16 | XMS_ITS | Encounter Summary ---
Author Organization [facility] Address [address] [place] [address] Care Team Providers Care Glue Bone Crusher Name Role Phone Tanya Jane MD Primary Care Provider [phone] Reason for Visit * Reason Comments Arthritis Encounter Details Date Type Department Care Team (Late st Contact Info) Description 09/09/2020 9:30 AM CHUTE BUILDER Video Visit [facility] Rheumatology [address] [place] [address], [place] [phone] Lisette Choe MD No info available Seropositive erosive rheumatoid arthritis (HCC) ; Encounter for therapeutic drug monitoring; Elevated liver enzymes; Elevated serum creatinine Social History Tobacco Use Types Packs/Day Years [...] * Patient Instructions* Lisette Choe MD - 09/09/2020 10:14 AM CHUTE BUILDER Repeat labs in 3 to 4 weeks and repeat labs every 3 months. If liver enzymes are abnormal on repeatlabs, we may need to adjust your medication. Continue Arava. Continue meloxicam. Follow up with rheumatology in 3 months. If you need to change or cancel your Rheumatology appointment - At the [facility] ([facility]) at [address] [place] [address], call [phone]. If you need a refill request, have your pharmacy fax a request to [phone]. If you need to leave a message for Dr. Choe, you can send her an electronic message via [employer] a voicemail at [phone]. Her office FAX number is [phone]. For after hours emergency only, you can call the [facility] lacquer pin press operator at [phone] and ask for the Physics Teacher operations recruiter to be paged. E BUILDER documented in this encounter Progress Notes * Lisette Choe MD - 09/09/2020 9:30 AM CST [facility] Rheumatology Followup Televisit 09/09/20 Patient Verification & Telemedicine Based Consent I am proceeding with this evaluation at the direct request of the patient. I have verified this is the correct patient and have obtained verbal consent from the patient/surrogate to perform this voluntary telemedicine encounter evaluation. I have explained risks (including potential loss of confiden tiality), benefits, alternatives, and the potential need for subsequent face to face care. Patient/surrogate understands that there is a risk of medical inaccuracies given that our recommendations will be made based on reported data. Knowing that there is a risk that this information is not reported accurately, and that the telemedicine audio, or data feed may be incomplete, the patient agrees toproceed with evaluation and holds us harmless knowing these risks. In this evaluation, we will be providing recommendations only. The patient/surrogate has been notified that other healthcare professionals (including students, residents and technical personnel) may be involved in this audio evaluation. All laws concerning confidentiality and patient access to medical records and copies of medicalrecords apply to telemedicine. I have reviewed this above verification and consent paragraph with the patient/surrogate. Referring Physician: Provider Unknown No address on file PCP: Tanya Jane MD Chief Complaint Patient presents with Arthritis HPI: 70 year old female with seropositive erosive RA (+RF, +CCP), osteopenia, DM, hypothyroidism. Last seen in clinic on 10/30/19. At that time she was doing well and stable on medications. Since then, she reports that her RA is still stable. Denies any joint pain, swelling or morning stiffness. She takes her LEF and meloxicam as prescribed. She reports recent episode of GI discomfort and diarrhea for almost 2 months, she is just recovering from it now. She had blood work a week ago which did show slight increase in her creatinine, mild hyponatremia, and increased ALT/ALP. She denies significant alcohol use. Says she drinks a glass of wine and shot of jagdish every few weeks. Says last alcohol intake was about 3 weeks ago and denies any increased frequency. Reports GI discomfort and diarrhea are improved now. Current meds: LEF 20 mg daily Meloxicam 15 mg daily PRN Disease Hx: Diagnosed with seropositive RA around [...] -pleuritic pain GI: - dysphagia, - reflux, +abd pain, -constipation, -nausea, -vomiting, +diarrhea, -blood/mucus : -urine changes, -dysuria, -hematuria MSK: -arthralgia, -myalgia, -muscle weakness, -swelling, -erythema, -warmth, -AM stiffness, -back pain Skin: -rash, -lesions, -ulcers, -hair loss, -Raynaud, -acrocyanosis, -photosensitivity Neuro: -BAPTISTE, -paresthesias Psych: Mood is generally good, -depression/anxiety ROS otherwise negative Past Medical/Surgical History: Past Medical History: Diagnosis Date Hypertension Rheumatoid arthritis Type 2 diabetes mellitus Past Surgical History: Procedure Laterality Date Hernia Repair HX APPENDECTOMY Ovarian Cyst Removal WI REPAIR OF NASAL SEPTUM 1970 to help breathing but unsure if really ever need Tonsillectomy Social History: Social History Socioeconomic History Marital status: Spouse name: Not on file Number of children: Not on file Years of education: Not on file Highest education level: Not on file Occupational History Not on file Social Needs Financial resource strain: Not on file Food insecurity Worry: Not on file Inability: Not on file Transportation needs Medical: Not on file Non-medical: Not on file Tobacco Use Smoking status: Former Smoker Smokeless tobacco: Never Used Substance and Sexual Activity Alcohol use: Yes Alcohol/week: 1.0 standard drinks Drug use: Yes Types: Marijuana Sexual activity: Not on file Lifestyle Physical activity Days per week: Not on file Minutes per session: Not on file Stress: Not on file Relationships Social connections Talks on phone: Not on file Gets together: Not on file Attends spiritism service: Not on file Active member of club or organization: Not on file Attends meetings of clubs or organizations: Not on file Relationship status: Not on file Intimate partner violence Fear of current or ex partner: Not on file Emotionally abused: Not on file Physically abused: Not on file Forced sexual activity: Not on file Other Topics Concern Not on file Social History Narrative Not on file Family History: family history is not on file. Current Medications: Current Outpatient Medications Medication Sig Dispense Refill Acfpvej-Gcxgcxccm-Ufpffpj D (CALCIUM 1200+D3) 600-40-500 MG-MG-UNIT TB24 Take 1 tablet by mouth. cyanocobalamin (VITAMIN B-12) 1000 MCG tablet Take 1,000 mcg by mouth once daily 4 fenofibrate (LOFIBRA) 160 MG tablet Take 160 mg by mouth. GLIPIZIDE XL 10 MG tablet Take 10 mg by mouth 2 times daily 3 hydroCHLOROthiazide (HYDRODIURIL) 25 MG tablet Take 1 tablet by mouth once daily leflunomide (ARAVA) 20 MG tablet TAKE 1 TABLET BY MOUTH EVERY DAY 90 tablet 2 levothyroxine (SYNTHROID) 75 MCG tablet Take 75 mcg by mouth DAILY. losartan (COZAAR) 100 MG tablet Take 100 mg by mouth once daily 4 meloxicam (MOBIC) 7.5 MG tablet TAKE 1 TABLET BY MOUTH EVERY DAY NEEDED 90 tablet 0 metFORMIN (GLUCOPHAGE) 1000 MG tablet Take 1 tablet by mouth BID. 2 Lincoln-3 Fatty Acids (FISH OIL) 1000 MG capsule Take 1,200 mg by mouth BID. omeprazole (PRILOSEC) 40 MG capsule omeprazole 40 mg capsule,delayed release TK 1 C PO QD ONETOUCH VERIO test strip TEST DAILY DIRECTED 4 potassium chloride ER (KLOR-CON) 20 MEQ tablet TK 1 T PO BID simvastatin (ZOCOR) 20 MG tablet Take 20 mg by mouth. triamcinolone acetonide (KENALOG) 0.1 % ointment Apply to affected area 2 times daily as needed 5 No current facility-administered medications for this visit. Allergies: Allergies Allergen Reactions Codeine Nausea and/or Vomiting Objective: There were no vitals taken for this visit. Labs: Reviewed, including those as noted below 09/01/20: CMP: 133/5/95/21/10/1.15, ALP 162, ALT 46, AST 39 CBC: 9.1 > 10.5 < 320 ESR 2, CRP 3 UA negative 05/06/20: CMP: Cr 0.98, LFTs WNL CBC: Hb 9.4 ESR 2, CRP 6 UA neg blood/protein 08/15/16 CMP: Cr 10.05 CBC: WNL Vit D 31 ESR 2, CRP 0.36 UA trace protein, neg blood RF 173, CCP >250 NAN negative SSA, SSB negative HBV, HCV NR Diagnostics/health maintenance: BL hand XRR 03/2019 Impression: [...] dislocation, periosteal reaction, or bone destruction DEXA ([facility]) 02/07/17: L spine BMD 0.977; T-score -0.6 L Femoral neck BMD: 0.864; T-score +0.5 R Femoral neck BMD0.787; T-score -0.6 Assessment & Plan: 1. Seropositive erosive rheumatoid arthritis 2. Encounter for therapeutic drug monitoring Kianna Hill is a 70 year old female with seropositive erosive RA (+RF, +CCP), osteopenia, DM, hypothyroidism who returns for follow up. Patient reports RA disease is stable on LEF and meloxicam. Herlabs are concerning for dehydration with elevated Cr and mild hyponatremia. Consistent with recent episode of diarrhea. She is recovering from this now and feeling better. She also has elevated liverenzymes. Denies any frequent or increase in alcohol use. LEF carries risk of hepatic toxicity as well. Will plan to repeat these labs in 3-4 weeks and if she continues to have persistent or worseningliver enzymes, will likely decrease dose or switch to alternative DMARD with less risk of liver toxi city (HCQ, SSZ, etc). Also need to monitor creatinine for NSAID use. For now will continue current regimen and monitor. - Labs as below ([facility], in 3-4 weeks and then every 3 months) - Continue leflunomide 20 mg daily - Continue meloxicam 7.5 mg daily - Discussed caution with regular alcohol use given leflunomide and elevated LFTs RTC in 3 mo Lisette Choe MD Rheumatology Fellow Patient seen and examined with Dr. Merchant. Patient location: home Encounter performed using: telephone audio Encounter duration: 22 min The plan was reviewed with the patient and they confirmed understanding of the plan and all follow-up steps. All aspects of patient's medical history were reviewed and updated as documented in Epic. The following were ordered during this visit: Orders Placed This Encounter CBC WITH DIFFERENTIAL Standing Status: Standing Number of Occurrences: 8 Standing Expiration Date: 10/09/2021 Order Specific Question: Release to patient Answer: Immediate COMPREHENSIVE METABOLIC PANEL Standing Status: Standing Number of Occurrences: 8 Standing Expiration Date: 10/09/2021 C-REACTIVE PROTEIN Standing Status: Standing Number of Occurrences: 8 Standing Expiration Date: 10/09/2021 ERYTHROCYTE SEDIMENTATION RATE Standing Status: Standing Number of Occurrences: 8 Standing Expiration Date: 10/09/2021 Order Specific Question: Release to patient Answer: Immediate E BUILDER Associated attestation - Gerald Merchant MD - 09/15/2020 2:19 PM CHUTE BUILDER 70-year-old lady previously patient of Dr. Bose, [place] to [place], last seen in clinic 10/30/2019. She has history of seropositive erosive RA( RF 173,CCP >250) currently on leflunomide 20 mg daily(since 2017) and meloxicam p.r.n. never been on any biologics, methotrexate was avoided due to h/o alcohol use. She denied the significant arthritis symptoms of morning stiffness, thinks that her joint pain are well controlled on current medications. His she says that she drinks alcohol but not regularly, her last drink was 3 weeks ago. She also reported recent history of diarrhea and her labs also showed evidence of dehydration with hyponatremia, slight increase in her creatinine. Recent labs from 09/01/2020 reviewed, significant for ALT 46, alkaline phosphatase 162. She has mild transaminitis which could be due to use of leflunomide or meloxicam. Need to closely monitor LFTs,repeat the labs in 2-4 weeks and if ALT persistently elevated or worsening then might need to switch leflunomide to different DMARD. We also discussed the risk of hepatotoxicity with concomitant alcohol drinking and use of leflunomide. documented in this encounter Plan of Treatment Upcoming Encounters Date Type Department Care Team (Late st Contact Info) Description 01/09/2025 2:00 PM CDT [facility] [address] [place] [address], [place] [address] Thalia Dunlap MD [address] [place] [address] [address] [place] [phone] 01/09/2025 2:30 PM CDT [facility] [address] [place] [address], [place] [phone] Matias Lewis III, MD [address] [place] [address] [address] [place] [phone] 02/25/2025 2:30 PM CDT Office Visit [facility] - Rheumatology [address] [place] [address], [place] [phone] Lonnie Tai MD [address] [facility] [place], [place] [id number] Scheduled Orders Name Type Priority Associated Diagnoses Orde r Schedule CBC WITH DIFFERENTIAL Lab Routine Seropositive erosive rheumatoid arthritis (HCC) Encounter for therapeutic drug monitoring E-6Weeks for 8 Occurrences starting 09/09/2020 until 10/09/2021, 6 completed COMPREHENSIVE METABOLIC PANEL Lab Routine Seropositive erosive rheumatoid arthritis (HCC) Encounter for therapeutic drug monitoring E-6Weeks for 8 Occurrences starting 09/09/2020 until 10/09/2021, 6 completed C-REACTIVE PROTEIN Lab Routine Seropositive erosive rheumatoid arthritis (HCC) Encounter for therapeutic drug monitoring E-6Weeks for 8 Occurrences starting 09/09/2020 until 10/09/2021, 6 completed ERYTHROCYTE SEDIMENTATION RATE Lab Routine Seropositive erosive rheumatoid arthritis (HCC) Encounter for therapeutic drug monitoring E-6Weeks for 8 Occurrences starting 09/09/2020 until 10/09/2021, 6 completed documented as of this encounter Procedures Procedure Name Priority Date/Time Associated Diagnosis Comments C-REACTIVE PROTEIN Routine 09/30/2020 8: 04 AM CHUTE BUILDER Seropositive erosive rheumatoid arthritis (HCC) Encounter for therapeutic drug monitoring ERYTHROCYTE SEDIMENTATION RATE Routine 09/30/2020 8:04 AM CHUTE BUILDER Seropositive erosive rheumatoid arthritis (HCC) Encounter for therapeutic drug monitoring CBC W AUTO DIFFERENTIAL Routine 09/30/2020 8:04 AM CHUTE BUILDER Seropositive erosive rheumatoid arthritis (HCC) Encounter for therapeutic drug monitoring COMPREHENSIVE METABOLIC PANEL Routine 09/30/2020 8:04 AM CHUTE BUILDER Seropositive erosive rheumatoid arthritis (HCC) Encounter for therapeutic drug monitoring documented in this encounter Results * ERYTHROCYTE SEDIMENTATION RATE (11/01/2021 8:51 AM CHUTE BUILDER) Erythrocyte Sedimentation Rate Westergren 2 0 - 40 mm/hr [facility] INSURANCE BILL Comment:FASTING Blood BLOOD SPECIMEN / Unknown 11/01/2021 8:51 AM CHUTE BUILDER 11/01/2021 Narrative Resulting Agency Comment Lab Testing performed at: [address] ??[facility] [id number] Lisette Choe MD LAB - HEMATOLOGY ORD ERABLES [facility] INSURANCE BILL [address] [place] [address] * C-REACTIVE PROTEIN (11/01/2021 8:51 AM CHUTE BUILDER) C-Reactive Protein 3 0 - 10 mg/L [facility] INSURANCE BILL Comment:FASTING Blood BLOOD SPECIMEN / Unknown 11/01/2021 8:51 AM CHUTE BUILDER 11/01/2021 Narrative Resulting Agency Comment Lab Testing performed at: [facility] [address] [facility] ??[facility] [id number] Lisette Choe MD LAB - CHEMISTRY ROBERT MAY [facility] INSURANCE BILL [address] [place] [address] * (ABNORMAL) COMPREHENSIVE METABOLIC PANEL (11/01/2021 8:51 AM CHUTE BUILDER) Glucose 264(H) 65 - 99 mg/dL [facility] [...] BLOOD SPECIMEN / Unknown 11/01/2021 8:51 AM CHUTE BUILDER 11/01/2021 Narrative Resulting Agency Comment Lab Testing performed at: [facility] ??[facility] [id number] Lisette Choe MD LAB - CHEMISTRY ROBERT MAY [facility] INSURANCE BILL [address] [place] [address] * CBC WITH DIFFERENTIAL (11/01/2021 8:51 AM CHUTE BUILDER) WBC 7.5 3.4 - 10.8 x10E3/uL [facility] [...] BLOOD SPECIMEN / Unknown 11/01/2021 8:51 AM CHUTE BUILDER 11/01/2021 Narrative Resulting Agency Comment Lab Testing performed at: [employer] [place] [address] [place] [address] ??[facility] [id number] Lisette Choe MD LAB - HEMATOLOGY ORD ERABLES [facility] INSURANCE BILL [address] [place] [address] * ERYTHROCYTE SEDIMENTATION RATE (08/05/2021 8:32 AM CDT) Erythrocyte Sedimentation Rate Westergren 2 0 - 40 mm/hr [facility] INSURANCE BILL Comment:FASTING Blood BLOOD SPECIMEN / Unknown 08/05/2021 8:32 AM CDT 08/05/2021 Narrative Resulting Agency Comment Lab Testing performed at: [employer] [facility] [address] [facility] ??[facility] [id number] Lisette Choe MD LAB - HEMATOLOGY ORD ERABLES [facility] INSURANCE BILL [address] [place] [address] * (ABNORMAL) C-REACTIVE PROTEIN (08/05/2021 8:32 AM CDT) C-Reactive Protein 11(H) 0 - 10 mg/L [facility] INSURANCE BILL Comment:FASTING Blood BLOOD SPECIMEN / Unknown 08/05/2021 8:32 AM CDT 08/05/2021 Narrative Resulting Agency Comment Lab Testing performed at: [facility] [address] ??[facility] [id number] Lisette Choe MD LAB - CHEMISTRY ROBERT MAY [facility] INSURANCE BILL [address] [place] [address] * (ABNORMAL) COMPREHENSIVE METABOLIC PANEL (08/05/2021 8:32 [...] Resulting Agency Comment Lab Testing performed at: [facility] ??[facility] [id number] Lisette Choe MD LAB - CHEMISTRY ROBERT MAY [facility] INSURANCE BILL [address] [place] [address] * CBC WITH DIFFERENTIAL (08/05/2021 8:32 AM [...] Resulting Agency Comment Lab Testing performed at: [facility] [address] [place] [address] ??[facility] [id number] Lisette Choe MD LAB - HEMATOLOGY ORD ERABLES [facility] INSURANCE BILL [address] [place] [address] * ERYTHROCYTE SEDIMENTATION RATE (04/29/2021 8:09 AM CDT) Pathologist [facility] Erythrocyte Sedimentation Rate Westergren 2 0 - 40 mm/hr [facility] INSURANCE BILL Comment:FASTING Blood BLOOD SPECIMEN / Unknown 04/29/2021 8:09 AM CDT 04/29/2021 Narrative Resulting Agency Comment Lab Testing performed at: [facility] [address] ??[facility] [id number] Lisette Choe MD LAB - HEMATOLOGY ORD ERABLES [facility] INSURANCE BILL [address] [place] [address] * C-REACTIVE PROTEIN (04/29/2021 8:09 AM CDT) C-Reactive Protein 3 0 - 10 mg/L [facility] INSURANCE BILL Comment:FASTING Blood BLOOD SPECIMEN / Unknown 04/29/2021 8:09 AM CDT 04/29/2021 Narrative Resulting Agency Comment [facility]: [facility] [address] ??[facility] [id number] Lisette Choe MD LAB - CHEMISTRY ROBERT MAY [facility] INSURANCE BILL [address] [place] [address] * (ABNORMAL) COMPREHENSIVE METABOLIC PANEL (04/29/2021 8:09 AM CDT) Pathologist [facility] Glucose 234(H) 65 - 99 mg/dL [facility] [...] Resulting Agency Comment Lab Testing performed at: [facility] [address] [facility] ??[facility] [id number] Lisette Choe MD LAB - CHEMISTRY ROBERT MAY [facility] INSURANCE BILL [address] [place] [address] * CBC WITH DIFFERENTIAL (04/29/2021 8:09 AM [...] Resulting Agency Comment Lab Testing performed at: [facility] ??[facility] [id number] Lisette Choe MD LAB - HEMATOLOGY ORD ERABLES [facility] INSURANCE BILL [address] [place] [address] * ERYTHROCYTE SEDIMENTATION RATE (03/02/2021 8:22 AM CDT) Erythrocyte Sedimentation Rate Westergren 2 0 - 40 mm/hr [facility] INSURANCE BILL Comment:FASTING Blood BLOOD SPECIMEN / Unknown 03/02/2021 8:22 AM CDT 03/02/2021 Narrative Resulting Agency Comment Lab Testing performed at: [facility] ??[facility] [id number] Lisette Choe MD LAB - HEMATOLOGY ORD ERABLES [facility] INSURANCE BILL [address] [place] [address] * C-REACTIVE PROTEIN (03/02/2021 8:22 AM CDT) C-Reactive Protein 2 0 - 10 mg/L [facility] INSURANCE BILL Comment:FASTING Blood BLOOD SPECIMEN / Unknown 03/02/2021 8:22 AM CDT 03/02/2021 Narrative Resulting Agency Comment Lab Testing performed at: [facility] [address] ??[facility] [id number] Lisette Choe MD LAB - CHEMISTRY ROBERT MAY [facility] INSURANCE BILL [address] [place] [address] * (ABNORMAL) COMPREHENSIVE METABOLIC PANEL (03/02/2021 8:22 AM CDT) Glucose 194(H) 65 - 99 mg/dL [facility] INSURANCE BILL BUN 7(L) 8 - 27 mg/dL [facility] INSURANCE BILL Creatinine 1.09(H) 0.57 - 1.00 mg/dL [facility] INSURANCE BILL eGFR by MDRD 52(L) >59 mL/min/1.7 3 [facility] INSURANCE BILL eGFR by MDRD 60 >59 mL/min/1.7 3 [facility] INSURANCE BILL Comment: [facility] currently reports eGFR in compliance with the current ??recommendations of the National Kidney Foundation. [facility] will ??update reporting as new guidelines are published from the NKF-ASN ??Task force. BUN/Creatinine Ratio 6(L) 12 - 28 [facility] INSURANCE BILL Sodium 135 134 - 144 mmol/L [facility] INSURANCE BILL Potassium 4.4 3.5 - 5.2 mmol/L [facility] INSURANCE BILL Chloride 97 96 - 106 mmol/L [facility] INSURANCE BILL CO2 22 20 - 29 mmol/L [facility] INSURANCE BILL Calcium 9.4 8.7 - 10.3 mg/dL [facility] INSURANCE BILL Protein Total 6.5 6.0 - 8.5 g/dL [facility] INSURANCE BILL Albumin 4.7 3.8 - 4.8 g/dL [facility] INSURANCE BILL Globulin Total 1.8 1.5 - 4.5 g/dL [facility] INSURANCE BILL Albumin/Globulin Ratio 2.6(H) 1.2 - 2.2 [facility] INSURANCE BILL Bilirubin Total 0.5 0.0 - 1.2 mg/dL [facility] INSURANCE BILL Alkaline Phosphatase 194(H) 39 - 117 IU/L [facility] INSURANCE BILL AST 34 0 - 40 IU/L [facility] INSURANCE BILL ALT 36(H) 0 - 32 IU/L [facility] INSURANCE BILL Comment:FASTING Blood BLOOD SPECIMEN / Unknown 03/02/2021 8:22 AM CDT 03/02/2021 Narrative Resulting Agency Comment [facility] [address] [facility] ??[facility] [id number] Lisette Choe MD LAB - CHEMISTRY ROBERT MAY [facility] INSURANCE BILL [address] [place] [address] * (ABNORMAL) CBC WITH DIFFERENTIAL (03/02/2021 8:22 AM CDT) WBC 6.3 3.4 - 10.8 x10E3/uL [facility] INSURANCE BILL RBC 3.82 3.77 - 5.28 x10E6/uL [facility] INSURANCE BILL Hemoglobin 12.3 11.1 - 15.9 g/dL [facility] INSURANCE BILL Hematocrit 37.5 34.0 - 46.6 % [facility] INSURANCE BILL MCV 98(H) 79 - 97 fL [facility] INSURANCE BILL MCH 32.2 26.6 - 33.0 pg [facility] INSURANCE BILL MCHC 32.8 31.5 - 35.7 g/dL [facility] INSURANCE BILL RDW 14.8 11.7 - 15.4 % [facility] INSURANCE BILL Platelet Count 242 150 - 450 x10E3/uL [facility] INSURANCE BILL Granulocytes % 60 Not Estab. % [facility] INSURANCE BILL Lymphocytes % 25 Not Estab. % [facility] INSURANCE BILL Monocytes % 10 Not Estab. % [facility] INSURANCE BILL Eosinophils % 3 Not Estab. % [facility] INSURANCE BILL Basophils % 2 Not Estab. % [facility] INSURANCE BILL Immature Cells NOT NEEDED [facility] INSURANCE BILL Comment:Ancillary determined the test is not needed. Granulocytes Absolute 3.8 1.4 - 7.0 x10E3/uL [facility] INSURANCE BILL Lymphocytes Absolute 1.6 0.7 - 3.1 x10E3/uL [facility] INSURANCE BILL [...] not needed. Blood BLOOD SPECIMEN / Unknown 03/02/2021 8:22 AM CDT 03/02/2021 Narrative Resulting Agency Comment Lab Testing performed at: [facility] ??[facility] [id number] Lisette Choe MD LAB - HEMATOLOGY ORD ERABLES [facility] INSURANCE BILL [address] [place] [address] * ERYTHROCYTE SEDIMENTATION RATE (12/11/2020 8:31 AM CHUTE BUILDER) Erythrocyte Sedimentation Rate Westergren 2 0 - 40 mm/hr [facility] INSURANCE BILL Comment:FASTING Blood BLOOD SPECIMEN / Unknown 12/11/2020 8:31 AM CHUTE BUILDER 12/11/2020 Narrative Resulting Agency Comment Lab Testing performed at: [facility] [address] ??[facility] [id number] Lisette Choe MD LAB - HEMATOLOGY ORD ERABLES [facility] INSURANCE BILL [address] [place] [address] * C-REACTIVE PROTEIN (12/11/2020 8:31 AM CHUTE BUILDER) C-Reactive Protein 3 0 - 10 mg/L [facility] INSURANCE BILL Comment:FASTING Blood BLOOD SPECIMEN / Unknown 12/11/2020 8:31 AM CHUTE BUILDER 12/11/2020 Narrative Resulting Agency Comment Lab Testing performed at: [facility] [address] ??[facility] [facility] [id number] Lisette Choe MD LAB - CHEMISTRY ROBERT MAY [facility] Organization Address City/State/ZIP Co de Phone Number [facility] INSURANCE BILL [address] [place] [address] * (ABNORMAL) COMPREHENSIVE METABOLIC PANEL (12/11/2020 8:31 AM CHUTE BUILDER) Glucose 218(H) 65 - 99 mg/dL [facility] INSURANCE BILL BUN 7(L) 8 - 27 mg/dL [facility] INSURANCE BILL Creatinine 0.97 0.57 - 1.00 mg/dL [facility] INSURANCE BILL eGFR by MDRD 60 >59 mL/min/1.7 3 [facility] INSURANCE BILL eGFR by MDRD 69 >59 mL/min/1.7 3 [facility] INSURANCE BILL BUN/Creatinine Ratio 7(L) 12 - 28 [facility] INSURANCE BILL Sodium 132(L) 134 - 144 mmol/L [facility] INSURANCE BILL Potassium 4.9 3.5 - 5.2 mmol/L [facility] INSURANCE BILL Chloride 95(L) 96 - 106 mmol/L [facility] INSURANCE BILL CO2 21 20 - 29 mmol/L [facility] INSURANCE BILL Calcium 10.1 8.7 - 10.3 mg/dL [facility] INSURANCE BILL Protein Total 6.5 6.0 - 8.5 g/dL [facility] INSURANCE BILL Albumin 4.5 3.8 - 4.8 g/dL [facility] INSURANCE BILL Globulin Total 2.0 1.5 - 4.5 g/dL [facility] INSURANCE BILL Albumin/Globulin Ratio 2.3(H) 1.2 - 2.2 [facility] INSURANCE BILL Bilirubin Total 0.6 0.0 - 1.2 mg/dL [facility] INSURANCE BILL Alkaline Phosphatase 119(H) 39 - 117 IU/L [facility] INSURANCE BILL AST 30 0 - 40 IU/L [facility] INSURANCE BILL ALT 34(H) 0 - 32 IU/L [facility] INSURANCE BILL Comment:FASTING Blood BLOOD SPECIMEN / Unknown 12/11/2020 8:31 AM CHUTE BUILDER 12/11/2020 Narrative Resulting Agency Comment [facility] Testing performed at: [facility] [address] [facility] ??[facility] [id number] Lisette Choe MD LAB - CHEMISTRY ROBERT MAY [facility] INSURANCE BILL [address] [place] [address] * (ABNORMAL) CBC WITH DIFFERENTIAL (12/11/2020 8:31 AM CHUTE BUILDER) [facility] WBC 8.4 3.4 - 10.8 x10E3/uL [facility] INSURANCE BILL RBC 3.56(L) 3.77 - 5.28 x10E6/uL [facility] INSURANCE BILL Hemoglobin 11.3 11.1 - 15.9 g/dL [facility] INSURANCE BILL Hematocrit 35.2 34.0 - 46.6 % [facility] INSURANCE BILL MCV 99(H) 79 - 97 fL [facility] INSURANCE BILL MCH 31.7 26.6 - 33.0 pg [facility] INSURANCE BILL MCHC 32.1 31.5 - 35.7 g/dL [facility] INSURANCE BILL RDW 14.4 11.7 - 15.4 % [facility] INSURANCE BILL Platelet Count 294 150 - 450 x10E3/uL [facility] INSURANCE BILL Granulocytes % 73 Not Estab. % [facility] INSURANCE BILL Lymphocytes % 19 Not Estab. % [facility] INSURANCE BILL Monocytes % 5 Not Estab. % [facility] INSURANCE BILL Eosinophils % 1 Not Estab. % [facility] INSURANCE BILL Basophils % 1 Not Estab. % [facility] INSURANCE BILL Immature Cells NOT NEEDED [facility] INSURANCE BILL Comment:Ancillary determined the test is not needed. Granulocytes Absolute 6.1 1.4 - 7.0 x10E3/uL [facility] INSURANCE BILL Lymphocytes Absolute 1.6 0.7 - 3.1 x10E3/uL [facility] INSURANCE BILL [...] not needed. Blood BLOOD SPECIMEN / Unknown 12/11/2020 8:31 AM CHUTE BUILDER 12/11/2020 Narrative Resulting Agency Comment Lab Testing performed at: [facility] [address] ??[facility] [phone] Lisette Choe MD LAB - HEMATOLOGY ORD ERABLES [facility] INSURANCE BILL [address] [place] [address] * ERYTHROCYTE SEDIMENTATION RATE (09/30/2020 8:04 AM CHUTE BUILDER) Erythrocyte Sedimentation Rate Westergren 2 0 - 40 mm/hr [facility] INSURANCE BILL Comment:FASTING Blood BLOOD SPECIMEN / Unknown 09/30/2020 8:04 AM CHUTE BUILDER 09/30/2020 Narrative Resulting Agency Comment Lab Testing performed at: [facility] [address] ??[facility] [phone] Lisette Choe MD LAB - HEMATOLOGY ORD ERABLES Performing Organization Address [facility]/ZIP Co de Phone Number [facility] INSURANCE BILL [address] [place] [address] * C-REACTIVE PROTEIN (09/30/2020 8:04 AM CHUTE BUILDER) C-Reactive Protein 2 0 - 10 mg/L [facility] INSURANCE BILL Comment:FASTING Blood BLOOD SPECIMEN / Unknown 09/30/2020 8:04 AM CHUTE BUILDER 09/30/2020 Narrative Resulting Agency Comment Lab Testing performed at: [facility] [address] ??[facility] [phone] Lisette Choe MD LAB - CHEMISTRY ROBERT MAY [facility] INSURANCE BILL [address] [place] [address] * (ABNORMAL) COMPREHENSIVE METABOLIC PANEL (09/30/2020 8:04 AM CHUTE BUILDER) Glucose 127(H) 65 - 99 mg/dL [facility] INSURANCE BILL BUN 6(L) 8 - 27 mg/dL [facility] INSURANCE BILL Creatinine 1.07(H) 0.57 - 1.00 mg/dL [facility] INSURANCE BILL eGFR by MDRD 53(L) >59 mL/min/1.7 3 [facility] INSURANCE BILL eGFR by MDRD 62 >59 mL/min/1.7 3 [facility] INSURANCE BILL BUN/Creatinine Ratio 6(L) 12 - 28 [facility] INSURANCE BILL Sodium 135 134 - 144 mmol/L [facility] INSURANCE BILL Potassium 3.2(L) 3.5 - 5.2 mmol/L [facility] INSURANCE BILL Chloride 99 96 - 106 mmol/L [facility] INSURANCE BILL CO2 21 20 - 29 mmol/L [facility] INSURANCE BILL Calcium 9.3 8.7 - 10.3 mg/dL [facility] INSURANCE BILL Protein Total 6.1 6.0 - 8.5 g/dL [facility] INSURANCE BILL Albumin 4.3 3.8 - 4.8 g/dL [facility] INSURANCE BILL Globulin Total 1.8 1.5 - 4.5 g/dL [facility] INSURANCE BILL Albumin/Globulin Ratio 2.4(H) 1.2 - 2.2 [facility] INSURANCE BILL Bilirubin Total 0.3 0.0 - 1.2 mg/dL [facility] INSURANCE BILL Alkaline Phosphatase 139(H) 39 - 117 IU/L [facility] INSURANCE BILL AST 26 0 - 40 IU/L [facility] INSURANCE BILL ALT 30 0 - 32 IU/L [facility] INSURANCE BILL Comment:FASTING Blood BLOOD SPECIMEN / Unknown 09/30/2020 8:04 AM CHUTE BUILDER 09/30/2020 Narrative Resulting Agency Comment Lab Testing performed at: [facility] [address] [facility] ??[facility] [phone] Lisette Choe MD LAB - CHEMISTRY ROBERT MAY [facility] INSURANCE BILL [address] [place] [address] * (ABNORMAL) CBC WITH DIFFERENTIAL (09/30/2020 8:04 AM CHUTE BUILDER) WBC 7.9 3.4 - 10.8 x10E3/uL [facility] INSURANCE BILL RBC 3.25(L) 3.77 - 5.28 x10E6/uL [facility] INSURANCE BILL Hemoglobin 10.5(L) 11.1 - 15.9 g/dL [facility] INSURANCE BILL Hematocrit 31.2(L) 34.0 - 46.6 % [facility] INSURANCE BILL MCV 96 79 - 97 fL [facility] INSURANCE BILL MCH 32.3 26.6 - 33.0 pg [facility] INSURANCE BILL MCHC 33.7 31.5 - 35.7 g/dL [facility] INSURANCE BILL RDW 14.2 11.7 - 15.4 % [facility] INSURANCE BILL Platelet Count 262 150 - 450 x10E3/uL [facility] INSURANCE BILL Granulocytes % 69 Not Estab. % [facility] INSURANCE BILL Lymphocytes % 21 Not Estab. % [facility] INSURANCE BILL Monocytes % 7 Not Estab. % [facility] INSURANCE BILL Eosinophils % 1 Not Estab. % [facility] INSURANCE BILL Basophils % 1 Not Estab. % [facility] INSURANCE BILL Immature Cells NOT NEEDED [facility] INSURANCE BILL Comment:Ancillary determined the test is not needed. Granulocytes Absolute 5.6 1.4 - 7.0 x10E3/uL [facility] INSURANCE BILL [...] not needed. Blood BLOOD SPECIMEN / Unknown 09/30/2020 8:04 AM CHUTE BUILDER 09/30/2020 Narrative Resulting Agency Comment Lab Testing performed at: [facility] ??[facility] [phone] Lisette Choe MD LAB - HEMATOLOGY ORD ERABLES [facility] INSURANCE BILL [address] [place] [address] documented in this encounter Visit Diagnoses Diagnosis Seropositive erosive rheumatoid arthritis (HCC)- Primary Encounter for therapeutic drug monitoring Elevated liver enzymes Nonspecific elevation of levels of transaminase or lactic acid dehydrogenase (LDH) Elevated serum creatinine Other nonspecific findings on examination of blood documented in this encounter Care Teams Glue Bone Crusher Relationship Specialty Start Date End Date Tanya Jane MD [address] [place] [id number] PCP - General 01/05/18 07/09/24 documented as of this encounter
--- OUTSIDE RECORDS SUMMARY | 2024-11-09 23:16 | XMS_ITS | Encounter Summary ---
Author Organization [facility] Address [address] [facility] [place] [address] Care Team Providers Care Laboratory Clerk Name Role Phone Tanya Jane MD Primary Care Provider [phone] Reason for Visit * Reason Onset Date Comments Medication Issue 12/24/2020 Humira Encounter Details Date Type Department Care Team ([facility] st Contact Info) Description 12/24/2020 Telephone [facility] [address] [facility] [place] [phone] Lisette Choe MD No info available Medication Issue (Humira) Social History Tobacco Use Types Packs/Day Years [...] Telephone Encounter - Ayah Reyes RN - 12/24/2020 12:11 PM CST Pt left 2 additional voicemails. Called pt back, she states she does not know how to administer theinjection. Asked pt if she can come in for nurse visit and we will teach her, she said possibly next or Monday. She will call back to schedule this appointment. PROJECT COORDINATOR * Telephone Encounter - Miriam Estrada LPN - 12/24/2020 9:41 AM IT PROJECT COORDINATOR Patient left message requesting a call back. States the new medication, you have to know how to give shots . Attempted to contact this morning, no answer and never rolled to . Will attempt later in day. PROJECT COORDINATOR documented in this encounter Plan of Treatment Upcoming Encounters Date Type Department Care Team (Late st Contact Info) Description 01/09/2025 2:00 PM CDT Office Visit [facility] [address] [place] [address], [place] [phone] Thalia Dunlap MD [address] [place] [address] [address] [place] [phone] 01/09/2025 2:30 PM CDT Office Visit [facility] [address] [place] [address], [place] [phone] Matias Lewis III, MD [address] [place] [address] [address] [place] [phone] 02/25/2025 2:30 PM CDT [facility] [address] [place] [address], [place] [address] Lonnie Tai MD [address] [facility] [place], [place] [phone] documented as of this encounter Visit Diagnoses Not on filedocumented in this encounter Care Teams Laboratory Clerk Relationship Specialty Start Date End Date Tanya Jane MD [address] [place] [address] PCP - General 01/05/18 07/09/24 documented as of this encounter
--- OUTSIDE RECORDS SUMMARY | 2024-11-09 23:16 | XMS_ITS | Encounter Summary ---
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; Encounter for therapeutic drug [...] Visit [facility] [address] [facility], [place] [phone] Thalia Dunlap MD [address] [facility] [address] [place] [phone] 01/09/2025 2:30 PM CDT Office Visit [facility] [address] [facility], [place] [phone] Matias Lewis III, MD [address] [facility] [address] [place] [phone] 02/25/2025 2:30 PM CDT Office Visit [facility] - Rheumatology [address] [facility], [place] [phone] Lonnie Tai MD [address] [facility] [place] [address] documented as of this encounter Visit Diagnoses Diagnosis Rheumatoid arthritis with positive rheumatoid factor, involving unspecified site (HCC) Other senior living (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 Encounter for therapeutic drug level monitoring Encounter for therapeutic drug monitoring Essential hypertension Type 2 diabetes mellitus without complication, without long-term current use of insulin (HCC) documented in this encounter Care Teams Burr Bench Operator Relationship Specialty Start Date End Date Tanya Jane MD [address] [place] [address] [place] [phone] PCP - General 01/05/18 07/09/24 documented as of this encounter
--- OUTSIDE RECORDS SUMMARY | 2024-11-09 23:16 | XMS_ITS | Encounter Summary ---
Author Organization [facility] Address [address] [place] [address] Care Team Providers Care Territory Outside Sales Manager Name Role Phone Tanya Jane MD Primary Care Provider [phone] Encounter Details Date Type Department Care Team (Late st Contact Info) Description 12/09/2020 11:00 AM CLINICAL DATA COORDINATOR Video Visit [facility] [address] [place] [address], [place] [address] Lisette Choe MD No info [...] * Patient Instructions* Lisette Choe MD - 12/09/2020 10:56 AM CLINICAL DATA COORDINATOR [facility] Based on results, will call you to let you know if we think you should start Humira Follow up in 3months If you need to change or cancel your Rheumatology appointment - At the Center for [facility] ([facility]) at [address] [place] [address], call [phone]. If you need a refill request, have your pharmacy fax a request to [phone]. If you need to leave a message for Dr. Choe, you can send her an electronic message via [employer] a voicemail at [phone]. Her office FAX number is [phone]. For after hours emergency only, you can call the [facility] tenon machine operator at [phone] and ask for the Child Care Associate Teacher section hand helper to be paged. ICAL DATA COORDINATOR documented in this encounter Progress Notes * Lisette Choe MD - 12/09/2020 11:00 AM CST [facility] Rheumatology Followup Televisit Patient Verification & Telemedicine Based Consent Today's [...] RA (+RF, +CCP), osteopenia, DM, hypothyroidism. Last televisit on 09/09/20. At that time she was stable on medications but was recently recovering from suspected dehydration from diarrhea (lab abnormalities consistent). Since then, reports that arthritis has been under control. She had 1 day of knee pain with walking a couple weeks ago. This only lasted for 1 day and self resolved, no associated swelling. No other new symptoms, myalgia, rashes. She reports that she was started on a new BP medication and recently had a colonoscopy and was told everything looked clear. Current meds: LEF 20 mg daily Meloxicam 7.5 mg daily Disease Hx: Diagnosed with seropositive RA around [...] HX APPENDECTOMY ??? Ovarian Cyst Removal ??? [place] REPAIR OF NASAL SEPTUM 1970 to help breathing but unsure if really ever need ??? Tonsillectomy Social History: Social History Socioeconomic History ??? Marital status: Spouse name: Not on file ??? Number of children: Not on file ??? Years of education: Not on file ??? Highest education level: Not on file Occupational History ??? Not on file Social Needs ??? Financial resource strain: Not on file ??? Food insecurity Worry: Not on file Inability: Not on file ??? Transportation needs Medical: Not on file Non-medical: Not on file Tobacco Use ??? Smoking status: Former Smoker ??? Smokeless tobacco: Never Used Substance and Sexual Activity ??? Alcohol use: Yes Alcohol/week: 1.0 standard drinks ??? Drug use: Yes Types: Marijuana ??? Sexual activity: Not on file Lifestyle ??? Physical activity Days per week: Not on file Minutes per session: Not on file ??? Stress: Not on file Relationships ??? Social connections Talks on phone: Not on file Gets together: Not on file Attends bahai service: Not on file Active member of club or organization: Not on file Attends meetings of clubs or organizations: Not on file Relationship status: Not on file ??? Intimate partner violence Fear of current or ex partner: Not on file Emotionally abused: Not on file Physically abused: Not on file Forced sexual activity: Not on file Other Topics Concern ??? Not on file Social History Narrative ??? Not on file Family History: family history is not on file. Current Medications: Current Outpatient Medications Medication Sig Dispense Refill ??? Ujdalpj-Bcdswtwyk-Uxjjfyq D (CALCIUM 1200+D3) 600-40-500 MG-MG-UNIT TB24 Take [...] daily ??? leflunomide (ARAVA) 20 MG tablet TAKE 1 TABLET BY MOUTH EVERY DAY 90 tablet 2 ??? levothyroxine (SYNTHROID) 75 MCG tablet Take 75 mcg by mouth DAILY. ??? losartan (COZAAR) 100 MG tablet Take 100 mg by mouth once daily 4 ??? meloxicam (MOBIC) 7.5 MG tablet Take 1 tablet by mouth once daily as needed 90 tablet 1 ??? metFORMIN (GLUCOPHAGE) 1000 MG tablet Take 1 tablet by mouth BID. 2 ??? [place]-3 Fatty Acids (FISH OIL) 1000 MG capsule Take 1,200 mg by mouth BID. ??? omeprazole (PRILOSEC) 40 MG capsule omeprazole 40 mg capsule,delayed release TK 1 C PO QD ??? ONETOUCH VERIO test strip TEST DAILY DIRECTED 4 ??? potassium chloride ER (KLOR-CON) 20 MEQ tablet TK 1 T PO BID ??? simvastatin (ZOCOR) 20 MG tablet Take 20 mg by mouth. ??? triamcinolone acetonide (KENALOG) 0.1 % ointment Apply to affected area 2 times daily as needed5 No current facility-administered medications for this visit. Allergies: Allergies Allergen Reactions ??? Codeine Nausea and/or Vomiting Objective: Physical Exam: There were no vitals taken for this visit. No PE due to televisit Labs: Reviewed, including those as noted below 09/30/20 CMP: Cr 1.07, ALP 139, ALT 30, AST 25 CBC: Hb 10.5, MCV 96 ESR 2, CRP 2 09/01/20: CMP: 133/5/95/21/10/1.15, ALP 162, ALT 46, [...] dislocation, periosteal reaction, or bone destruction DEXA ([facility]) 02/07/17: L spine BMD 0.977; T-score -0.6 L Femoral neck BMD: 0.864; T-score +0.5 R Femoral neck BMD0.787; T-score -0.6 Assessment & Plan: 1. Seropositive erosive rheumatoid arthritis 2. Encounter for therapeutic drug monitoring 3. Elevated liver enzymes 4. Elevated serum creatinine Kianna Hill is a 70 year old female with seropositive erosive RA (+RF, +CCP), osteopenia, DM, hypothyroidism who returns for follow up. Patient reports RA disease is stable on LEF and meloxicam. However, she has had intermittently elevated LFTs and creatinine which are concerning. These have been attributed to dehydration, alcohol, etc in the past. She is on other medications that also have riskof liver dysfunction (fenofibrate, glipizide, etc), in addition to leflunomide, meloxicam. Given these risks, would be in favor of switching from leflunomide to Humira which would be safer for her. Discussed with patient and she was agreeable to plan. Will plan to get TB and hepatitis serologies first, as well as repeat LFTs and creatinine. - Labs as below ([facility], drug monitoring Q6-8W) - TB test, hepatitis serologies - Continue leflunomide 20 mg daily for now - Continue meloxicam 7.5 mg daily for now - Will plan to start Humira if labs unremarkable and discontinue LEF/meloxicam RTC in 3 mo Lisette Choe MD Rheumatology Fellow Patient discussed with Dr. Merchant. Patient location: Home This encounter was performed using: audio Reason for not using video for visit: patient does not have the technology Time spent with patient/proxy: 15 min The following were ordered during this visit: Orders Placed This Encounter ??? QUANTIFERON-TB GOLD PLUS 4-TUBE Order Specific Question: Release to patient Answer: Immediate ??? HEPATITIS B CORE ANTIBODY Order Specific Question: Release to patient Answer: Immediate ??? HEPATITIS B SURFACE ANTIBODY Order Specific Question: Release to patient Answer: Immediate ??? HEPATITIS B SURFACE ANTIGEN W RFLX CONFIRMATION Order Specific Question: Release to patient Answer: Immediate ??? HEPATITIS C ANTIBODY Order Specific Question: Release to patient Answer: Immediate ICAL DATA COORDINATOR Associated attestation - Gerald Merchant MD - 12/15/2020 9:55 AM CLINICAL DATA COORDINATOR I was present with Dr. Choe during telephone encounter. 70 y/o lady with seropositive erosive RA( RF 173,CCP >250) on Leflunomide 20 mg daily and overall joints pain controlled on current symptoms and denied significant arthritis symptoms. also takes Meloxicam daily. her labs showing intermittent elevation of transaminases and she is on other medications which can further cause elevated transaminases including Glipizide,Fenofibrate,Statins so would plan on stopping Arava and start TNFi. get chronic hep panel and TB Quantiferon and plan on starting Humira. documented in this encounter Plan of Treatment Upcoming Encounters Date Type Department Care Team (Late st Contact Info) Description 01/09/2025 2:00 PM CDT Office Visit [facility] [address] [place] [address], [place] [phone] Thalia Dunlap MD [address] [place] [address] [address] [place] [phone] 01/09/2025 2:30 PM CDT Office Visit [facility] [address] [place] [address], [place] [phone] Matias Lewis III, MD [address] [place] [address] [address] [place] [phone] 02/25/2025 2:30 PM CDT Office Visit [facility] - Rheumatology [address] [place] [address], [place] [phone] Lonnie Tai MD [address] [facility]?? [place], [place] [phone] documented as of this encounter Procedures Procedure Name Priority Date/Time Associated Diagnosis Comments QUANTIFERON-TB GOLD PLUS 4-TUBE Routine 12/11/2020 8:37 AM CLINICAL DATA COORDINATOR Seropositive erosive rheumatoid arthritis (HCC) Encounter for therapeutic drug monitoring HEPATITIS B SURFACE ANTIBODY Routine 12/11/2020 8:37 AM CLINICAL DATA COORDINATOR Seropositive erosive rheumatoid arthritis (HCC) Encounter for therapeutic drug monitoring HEPATITIS B CORE ANTIBODY TOTAL Routine 12/11/2020 8:37 AM CLINICAL DATA COORDINATOR Seropositive erosive rheumatoid arthritis (HCC) Encounter for therapeutic drug monitoring HEPATITIS B SURFACE ANTIGEN W RFLX CONFIRMATION Routine 12/11/2020 8:37 AM CLINICAL DATA COORDINATOR Seropositive erosive rheumatoid arthritis (HCC) Encounter for therapeutic drug monitoring HEPATITIS C ANTIBODY Routine 12/11/2020 8:37 AM CLINICAL DATA COORDINATOR Seropositive erosive rheumatoid arthritis (HCC) Encounter for therapeutic drug monitoring documented in this encounter Results * HEPATITIS C ANTIBODY (12/11/2020 8:37 AM CLINICAL DATA COORDINATOR) Hepatitis C Antibody <0.1 0.0 - 0.9 s/co ratio [facility] INSURANCE BILL Comment: ? Negative: ? < 0.8 ?Indeterminate: 0.8 - 0.9 ? Positive: ? > 0.9 ? . ?The CDC recommends that a positive HCV antibody result ?be followed up with a HCV Nucleic Acid Amplification ?test (770333). FASTING Blood BLOOD SPECIMEN / Unknown 12/11/2020 8:37 AM CLINICAL DATA COORDINATOR 12/11/2020 Narrative Resulting Agency Comment Lab Testing performed at: [facility] [address] ??[facility] [id number] Gerald Merchant MD LAB - CHEMISTRY ROBERT MAY [facility] INSURANCE BILL [address] [place] [address] * HEPATITIS B SURFACE ANTIGEN W RFLX CONFIRMATION (12/11/2020 8:37 AM CLINICAL DATA COORDINATOR) Hepatitis B Virus Surface Antigen Negative Negative [facility] INSURANCE BILL Comment:FASTING Blood BLOOD SPECIMEN / Unknown 12/11/2020 8:37 AM CLINICAL DATA COORDINATOR 12/11/2020 Narrative Resulting Agency Comment Lab Testing performed at: [facility] [address] ??[facility] [id number] Gerald Merchant MD LAB - CHEMISTRY ROBERT MAY Performing Organization Address [facility] de Phone Number [facility] INS[facility] B[facility] [address] [place] [address] * HEPATITIS B SURFACE ANTIBODY (12/11/2020 8:37 AM CLINICAL DATA COORDINATOR) Hepatitis B Virus Surface Antibody Non Reactive [facility] INSURANCE BILL Comment: ? Non Reactive: Inconsistent with immunity, ? less than 10 mIU/mL ? Reactive: ? Consistent with immunity, ? greater than 9.9 mIU/mL FASTING Blood BLOOD SPECIMEN / Unknown 12/11/2020 8:37 AM CLINICAL DATA COORDINATOR 12/11/2020 Narrative Resulting Agency Comment Lab Testing performed at: [facility] [address] ??[facility] [id number] Gerald Merchant MD LAB - CHEMISTRY ROBERT MAY Performing Organization Address City/[facility]/ZIP Co de Phone Number [facility] INSURANCE BILL [address] [place] [address] * HEPATITIS B CORE ANTIBODY (12/11/2020 8:37 AM CLINICAL DATA COORDINATOR) [facility] Hepatitis B Core Virus Antibody Total Negative Negative [facility] INSURANCE BILL Comment:FASTING Blood BLOOD SPECIMEN / Unknown 12/11/2020 8:37 AM CLINICAL DATA COORDINATOR 12/11/2020 Narrative Resulting Agency Comment Lab Testing performed at: [facility] [place] [address] [facility] ??[facility] [id number] Gerald Merchant MD LAB - CHEMISTRY ROBERT MAY Performing Organization Address [facility] Co de Phone Number [facility] INSURANCE BILL [address] [place] [address] * QUANTIFERON-TB GOLD PLUS 4-TUBE (12/11/2020 8:37 AM CLINICAL DATA COORDINATOR) [facility] QuantiFERON Criteria [facility] INSURANCE BILL Comment: The QuantiFERON-TB Gold Plus result is determined by subtracting the Nil value from either TB antigen (Ag) tube. The mitogen tube serves as a control for the test. QuantiFERON TB1 Ag Value 0.02 IU/mL [facility] INSURANCE BILL QuantiFERON TB2 Ag Value 0.02 IU/mL [facility] INSURANCE BILL QuantiFERON Nil Value 0.03 IU/mL [facility] INSURANCE BILL QuantiFERON Mitogen Value >10.00 IU/mL [facility] INSURANCE BILL QuantiFERON-TB Gold Plus Negative Negative [facility] INSURANCE BILL Comment: ? . The specimen received for QuantiFERON testing was incubated by the ordering institution. ??Specific procedures outlined in our Directory of Services and in the package insert for the QuantiFERON Gold (In Tube) test must be followed to enable for proper stimulation of cells for the production of interferon gamma. FASTING Blood BLOOD SPECIMEN / Unknown 12/11/2020 8:37 AM CLINICAL DATA COORDINATOR 12/11/2020 Narrative Resulting Agency Comment Lab Testing performed at: [facility] [place] [address] [facility] ??[facility] [id number] Gerald Merchant MD LAB - CHEMISTRY ROBERT MAY [facility] INSURANCE BILL [address] [place] [address] documented in this encounter Visit Diagnoses Diagnosis Seropositive erosive rheumatoid arthritis (HCC)- Primary Encounter for therapeutic drug monitoring Elevated liver enzymes Nonspecific elevation of levels of transaminase or lactic acid dehydrogenase (LDH) Elevated serum creatinine Other nonspecific findings on examination of blood documented in this encounter Care Teams Territory Outside Sales Manager Relationship Specialty Start Date End Date Tanya Jane MD [address] [place] [address] DAVID Jackman [phone] PCP - General 01/05/18 07/09/24 documented as of this encounter
--- OUTSIDE RECORDS SUMMARY | 2024-11-09 23:16 | XMS_ITS | Encounter Summary ---
Author Organization [facility] Address [address] [facility] [place] [address] Care Team Providers Care Cook Apprentice Name Role Phone Tanya Jane MD Primary Care Provider [phone] Reason for Visit * Reason Comments Refill Request Encounter Details Date Type Department Care Team (Late Contact Info) Description 12/02/2019 Refill [facility] [address] [place] [address] Tanya Blue DO [address] [place] [phone] Refill Request Social History Tobacco Use Types [...] Visit [facility] [address] [facility], [place] [phone] Thalia Dunlap MD [address] [facility] [address] [place] [address] 01/09/2025 2:30 PM CDT Office Visit [facility] [address] [facility], [facility] [place] [phone] Matias Lewis III, MD [address] [place], [place] [address] [address] [place] [address] 02/25/2025 2:30 PM CDT Office Visit [facility] - Rheumatology [address] [facility], [place] [address] Lonnie Tai MD [address] [facility]?? [place] [address] documented as of this encounter Visit Diagnoses Not on filedocumented in this encounter Care Teams Cook Apprentice Relationship Specialty Start Date End Date Tanya Jane MD [address] [place] [address] [place] [address] PCP - General 01/05/18 07/09/24 documented as of this encounter
--- OUTSIDE RECORDS SUMMARY | 2024-11-09 23:16 | XMS_ITS | Encounter Summary ---
Author Organization [facility] Address [address] [facility] [place] [address] Care Team Providers Care Nursing Information Systems Coordinator Name Role Phone Tanya Jane MD Primary Care Provider [phone] Encounter Details Date Type Department Care Team (Late Contact Info) Description 10/16/2020 Orders Only [facility] [address] [place] [phone] Lisette Choe MD No info available Seropositive [...] Description 01/09/2025 2:00 PM CDT Office Visit [facility] - [address] [phone] Thalia Dunlap MD [address] [place] [address] [address] [place] [phone] 01/09/2025 2:30 PM CDT Office Visit [facility] - [address] [phone] Matias Lewis III, MD [address] [place] [address] [address] [place] [address] 02/25/2025 2:30 PM CDT Office [facility] - Rhe[facility]ology [address] [facility], [place] [phone] Lonnie Tai MD [address] [facility] [place] [address] documented as of this encounter Visit Diagnoses Diagnosis Seropositive erosive rheumatoid arthritis (HCC) Encounter for therapeutic drug monitoring documented in this encounter Care Teams Nursing Information Systems Coordinator Relationship Specialty Start Date End Date Tanya Jane MD [address] [place] [address] [place] [phone] PCP - General 01/05/18 07/09/24 documented as of this encounter
--- OUTSIDE RECORDS SUMMARY | 2024-11-09 23:16 | XMS_ITS | Encounter Summary ---
Author Organization [facility] Address [address] [facility] [place] [address] Care Team Providers Care Construction Rigger Name Role Phone Tanya Jane MD Primary Care Provider [phone] Reason for Visit * Reason Onset Date Comments Encounter Opened In Error 12/09/2020 Encounter Details Date Type Department Care Team (Late st Contact Info) Description 12/09/2020 Telephone [facility] [address] [place] [phone] Lisette Choe MD No info available Encounter Opened In Error Social History Tobacco Use Types Packs/Day Years [...] CDT Office Visit [facility] - [address], [place] [phone] Thalia Dunlap MD [address] [place] [address] [address] [place] [phone] 01/09/2025 2:30 PM CDT Office Visit [facility] - [address] [phone] Matias Lewis III, MD [address] [place] [address] [address] [place] [phone] 02/25/2025 2:30 PM CDT Office Visit [facility] - Rheumatology [address] [facility], [place] [phone] Lonnie Tai MD [address] [facility] [place] [address] documented as of this encounter Visit Diagnoses Not on filedocumented in this encounter Care Teams Construction Rigger Relationship Specialty Start Date End Date Tanya Jane MD [address] [place] [address] [place] [phone] PCP - General 01/05/18 07/09/24 documented as of this encounter
--- OUTSIDE RECORDS SUMMARY | 2024-11-09 23:16 | XMS_ITS | Encounter Summary ---
Author Organization [facility] Address [address] [facility] [place] [address] Care Team Providers Care Engineer Byproduct Name Role Phone Tanya Jane MD Primary Care Provider [phone] Encounter Details Date Type Department Care Team (Late Contact Info) Description 01/08/2021 Orders Only [facility] [address] [place] [phone] Lisette Choe MD No info available Seropositive [...] Visit [facility] - [address] [phone] Thalia Dunlap MD [address] [place] [address] [address] [place] [phone] 01/09/2025 2:30 PM CDT Office Visit [facility] - [address] [phone] Matias Lewis III, MD [address] [place] [address] [address] [place] [address] 02/25/2025 2:30 PM CDT Office Visit [facility] - Rheumatology [address] [facility], [facility] [place] [phone] Lonnie Tai MD [address] [facility] [place] [address] documented as of this encounter Visit Diagnoses Diagnosis Seropositive erosive rheumatoid arthritis (HCC) Encounter for therapeutic drug monitoring documented in this encounter Care Teams Engineer Byproduct Relationship Specialty Start Date End Date Tanya Jane MD [address] [place] [address] [place] [phone] PCP - General 01/05/18 07/09/24 documented as of this encounter
--- OUTSIDE RECORDS SUMMARY | 2024-11-09 23:16 | XMS_ITS | Encounter Summary ---
Author Organization [facility] Address [address] [facility] [place] [address] Care Team Providers Care Fisher Diving Name Role Phone Tanya Jane MD Primary Care Provider [phone] Reason for Visit * Reason Comments Refill Request Encounter Details Date Type Department Care Team (Late Contact Info) Description 08/22/2019 Refill [facility] [address] [place] [address] Tanya Blue DO [address] [place] [phone] Refill Request Social History Tobacco Use Types [...] Visit [facility] [address] [facility], [place] [phone] Thalia Dunlap MD [address] [facility] [address] [place] [address] [place] [phone] 01/09/2025 2:30 PM CDT Office Visit [facility] [address] [facility], [place] [phone] Matias Lewis III, MD [address] [place], [place] [address] [address] [place] [address] 02/25/2025 2:30 PM CDT Office Visit [facility] - Rheumatology [address] [facility], [place] [address] Lonnie Tai MD [address] [facility]?? [place] [address] documented as of this encounter Visit Diagnoses Not on filedocumented in this encounter Care Teams Fisher Diving Relationship Specialty Start Date End Date Tanya Jane MD [address] [place] [address] [place] [address] PCP - General 01/05/18 07/09/24 documented as of this encounter
--- OUTSIDE RECORDS SUMMARY | 2024-11-09 23:16 | XMS_ITS | Encounter Summary ---
Author Organization 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-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 (nsaid); [facility] current use of 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; Encounter for [...] Visit [facility] [address] [facility], [place] [phone] Thalia Dunlap MD [facility] [address] [place] [phone] 01/09/2025 2:30 PM CDT Office Visit [facility] - [facility] [address] [facility], [place] [phone] Matias Lewis III, MD [address] [facility] 2L [place] [phone] 02/25/2025 2:30 PM CDT Office Visit [facility] - Rheumatology [address] [facility], [place] [phone] Lonnie Tai MD [address] [facility] 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 [address] PCP - General 01/05/18 07/09/24 documented as of this encounter
--- OUTSIDE RECORDS SUMMARY | 2024-11-09 23:16 | XMS_ITS | Encounter Summary ---
Author Organization [facility] Address [address] [place] [address] Care Team Providers Care Dog Catcher Name Role Phone Tanya Jane MD Primary Care Provider [phone] Encounter Details Date Type Department Care Team ([facility] Contact Info) Description 08/24/2018 Orders Only [facility] [address] [place] [address] Tanya Blue DO [address] [place] [phone] Rheumatoid arthritis with positive rheumatoid factor, involving unspecified site (HCC); Encounter for therapeutic drug level monitoring; Need for influenza vaccination; Arthralgia of multiple joints Social History Tobacco Use Types Packs/Day Years [...] [facility] [address] [facility], [place] [phone] Thalia Dunlap MD [address] [place] [address] 01/09/2025 2:30 PM CDT Office Visit [facility] GI 1225 [place] [phone] Matias Lewis III, MD [address] [facility] 2L [place] [phone] 02/25/2025 2:30 PM CDT Office Visit [facility] - Rheumatology [address] [facility], [place] [phone] Lonnie aTi MD [address] [facility] [place] [address] documented as of this encounter Procedures Procedure Name Priority Date/Time Associated Diagnosis Comments URINALYSIS MICROSCOPIC ONLY REFLEXED Routine 09/05/2018 9:58 AM MIDDLE SCHOOL HISTORY TEACHER Rheumatoid arthritis with positive rheumatoid factor, involving unspecified site (HCC) Encounter for therapeutic drug level monitoring Need for influenza vaccination Arthralgia of multiple joints URINALYSIS W/MICROSCOPIC REFLEX TO CULTURE Routine 09/05/2018 9:58 AM MIDDLE SCHOOL HISTORY TEACHER Rheumatoid arthritis with positive rheumatoid factor, involving unspecified site (HCC) Encounter for therapeutic drug level monitoring Need for influenza vaccination Arthralgia of multiple joints C-REACTIVE PROTEIN Routine 09/05/2018 9: 58 AM MIDDLE SCHOOL HISTORY TEACHER Rheumatoid arthritis with positive rheumatoid factor, involving unspecified site (HCC) Encounter for therapeutic drug level monitoring Need for influenza vaccination Arthralgia of multiple joints ERYTHROCYTE SEDIMENTATION RATE Routine 09/05/2018 9:58 AM MIDDLE SCHOOL HISTORY TEACHER Rheumatoid arthritis with positive rheumatoid factor, involving unspecified site (HCC) Encounter for therapeutic drug level monitoring Need for influenza vaccination Arthralgia of multiple joints CBC W AUTO DIFFERENTIAL Routine 09/05/2018 9:58 AM MIDDLE SCHOOL HISTORY TEACHER Rheumatoid arthritis with positive rheumatoid factor, involving unspecified site (HCC) Encounter for therapeutic drug level monitoring Need for influenza vaccination Arthralgia of multiple joints COMPREHENSIVE METABOLIC PANEL Routine 09/05/2018 9:58 AM MIDDLE SCHOOL HISTORY TEACHER Rheumatoid arthritis with positive rheumatoid factor, involving unspecified site (HCC) Encounter for therapeutic drug level monitoring Need for influenza vaccination Arthralgia of multiple joints documented in this encounter Results * (ABNORMAL) URINALYSIS MICROSCOPIC ONLY REFLEXED (09/05/2018 9:58 AM MIDDLE SCHOOL HISTORY TEACHER) WBC UA None seen 0 - 5 /hpf [facility] INSURANCE BILL RBC UA None seen 0 - 2 /hpf [facility] INSURANCE BILL Epithelial Cells (non renal) 0-10 0 - 10 /hpf [facility] INSURANCE BILL Epithelial Cells (renal) NOT NEEDED [facility] INSURANCE BILL Comment:Ancillary determined the test is not needed Casts ua Present(A) None seen /lpf [facility] INSURANCE BILL Casts UA Hyaline casts N/A [facility] INSURANCE BILL Crystals UA NOT NEEDED [facility] INSURANCE BILL [...] Ancillary determined the test is not needed 09/05/2018 9:58 AM MIDDLE SCHOOL HISTORY TEACHER 09/05/2018 Narrative Resulting Agency Comment [facility] [address] [facility] ??[facility] [phone] Tanay Blue DO LAB - URINALYSIS ORD ERABLES [facility] INSURANCE BILL [address] [place] [address] * URINALYSIS W/MICROSCOPIC REFLEX TO CULTURE (09/05/2018 9:58 AM MIDDLE SCHOOL HISTORY TEACHER) Specific [place] UA 1.008 1.005 - 1.030 [facility] INSURANCE BILL pH UA 6.5 5.0 - 7.5 [facility] INSURANCE BILL Color UA Yellow Yellow [facility] INSURANCE BILL Appearance Clear Clear [facility] INSURANCE BILL Leukocyte UA Negative Negative [facility] INSURANCE BILL Protein UA Negative Negative/Tra ce [facility] INSURANCE BILL Glucose UA Negative Negative [facility] INSURANCE BILL Ketone UA Negative Negative [facility] INSURANCE BILL Occult Blood Urine Negative Negative [facility] INSURANCE BILL Bilirubin UA Negative Negative [facility] INSURANCE BILL Urobilinogen 0.2 0.2 - 1.0 mg/dL [facility] INSURANCE BILL Nitrite UA Negative Negative [facility] INSURANCE BILL Microscopic Examination Urine [facility] INSURANCE BILL Comment:Microscopic follows if indicated. Microscopic Examination Urine See below: [facility] INSURANCE BILL Comment: Microscopic was indicated and was performed. FASTING Urinalysis Reflex [facility] INSURANCE BILL Comment: This specimen will not reflex to a Urine Culture. FASTING Urine URINE SPECIMEN OBTAINED BY CLEAN CATCH PROCEDURE / Unknown 09/05/2018 9:58 AM MIDDLE SCHOOL HISTORY TEACHER 09/05/2018 Narrative Resulting Agency Comment [address] ??[facility]ly [facility] [phone] Tanya Blue DO LAB - URINALYSIS ORD ERABLES Performing Organization Address City/[facility] Co de Phone Number [facility] INSURANCE BILL [address] [place] [address] * ERYTHROCYTE SEDIMENTATION RATE (09/05/2018 9:58 AM MIDDLE SCHOOL HISTORY TEACHER) Erythrocyte Sedimentation Rate Westergren 2 0 - 40 mm/hr [facility] INSURANCE BILL Comment:FASTING Blood BLOOD SPECIMEN / Unknown 09/05/2018 9:58 AM MIDDLE SCHOOL HISTORY TEACHER 09/05/2018 Narrative Resulting Agency Comment [address] ??[facility] [phone] Tanya Blue DO LAB - HEMATOLOGY ORD ERABLES [facility] INSURANCE BILL [address] [place] [address] * C-REACTIVE PROTEIN (09/05/2018 9:58 AM MIDDLE SCHOOL HISTORY TEACHER) C-Reactive Protein 1.3 0.0 - 4.9 mg/L [facility] INSURANCE BILL Comment:FASTING Blood BLOOD SPECIMEN / Unknown 09/05/2018 9:58 AM MIDDLE SCHOOL HISTORY TEACHER 09/05/2018 Narrative Resulting Agency Comment [facility] [address] [facility] ??[facility] [phone] Tanya Zackery Blue DO LAB - CHEMISTRY CHELSEADannie MAY [facility] INSURANCE BILL [address] [place] [address] * (ABNORMAL) COMPREHENSIVE METABOLIC PANEL (09/05/2018 9:58 AM MIDDLE SCHOOL HISTORY TEACHER) Glucose 152(H) 65 - 99 mg/dL [facility] INSURANCE BILL BUN 8 8 - 27 mg/dL [facility] INSURANCE BILL Creatinine 0.96 0.57 - 1.00 mg/dL [facility] INSURANCE BILL eGFR by MDRD 62 >59 mL/min/1.7 3 [facility] INSURANCE BILL eGFR by MDRD 71 >59 mL/min/1.7 3 [facility] INSURANCE BILL BUN/Creatinine Ratio 8(L) 12 - 28 [facility] INSURANCE BILL Sodium 139 134 - 144 mmol/L [facility] INSURANCE BILL [...] 1.2 mg/dL [facility] INSURANCE BILL Alkaline Phosphatase 63 39 - 117 IU/L [facility] INSURANCE BILL AST 22 0 - 40 IU/L [facility] INSURANCE BILL ALT 30 0 - 32 IU/L [facility] INSURANCE BILL Comment:FASTING Blood BLOOD SPECIMEN / Unknown 09/05/2018 9:58 AM MIDDLE SCHOOL HISTORY TEACHER 09/05/2018 Narrative Resulting Agency Comment [facility] [address] [facility] ??[facility] [phone] Tanya Blue DO LAB - CHEMISTRY ROBERT VIVIANMEGAN [facility] INSURANCE BILL [address] [place] [address] * CBC WITH DIFFERENTIAL (09/05/2018 9:58 AM MIDDLE SCHOOL HISTORY TEACHER) WBC 7.4 3.4 - 10.8 x10E3/uL [facility] INSURANCE BILL RBC 4.29 3.77 - 5.28 x10E6/uL [facility] INSURANCE BILL Hemoglobin 12.2 11.1 - 15.9 g/dL [facility] INSURANCE BILL Hematocrit 38.6 34.0 - 46.6 % [facility] INSURANCE BILL MCV 90 79 - 97 fL [facility] INSURANCE BILL MCH 28.4 26.6 - 33.0 pg [facility] INSURANCE BILL MCHC 31.6 31.5 - 35.7 g/dL [facility] INSURANCE BILL RDW 14.8 12.3 - 15.4 % [facility] INSURANCE BILL Platelet Count 270 150 - 379 x10E3/uL [facility] INSURANCE BILL Granulocytes % 65 [...] the test is not needed Granulocytes Absolute 4.8 1.4 - 7.0 x10E3/uL [facility] INSURANCE BILL [...] Hematology NOT NEEDED [facility] INSURANCE BILL Comment: A hand-written panel/profile was received from your office. In accordance with the [facility] Ambiguous Test Code Policy dated April 2003, we have assigned CBC with Differential/Platelet, Test Code #445510 to this request. If this is not the testing you wished to receive on this specimen, please contact the [facility] Client Inquiry/ Technical Services Department to clarify the test order. We appreciate your business. FASTING Ancillary determined the test is not needed Blood BLOOD SPECIMEN / Unknown 09/05/2018 9:58 AM MIDDLE SCHOOL HISTORY TEACHER 09/05/2018 Narrative Resulting Agency Comment [facility] [address] ??[facility] [phone] Tanya Blue DO LAB - [facility]EMATOLOGY [facility]D ERABLES [facility] B[facility] [address] [place] [address] documented in this encounter Visit Diagnoses Diagnosis Rheumatoid arthritis with positive rheumatoid factor, involving unspecified site (HCC) Encounter for therapeutic drug level monitoring Encounter for therapeutic drug monitoring Need for influenza vaccination Need for prophylactic vaccination and inoculation against influenza Arthralgia of multiple joints Pain in joint, multiple sites documented in this encounter Care Teams Dog Catcher Relationship Specialty Start Date End Date Tanya Jane MD [address] [place] [address] [place] [address] PCP - General 01/05/18 07/09/24 documented as of this encounter
--- OUTSIDE RECORDS SUMMARY | 2024-11-09 23:16 | XMS_ITS | Encounter Summary ---
Author Organization [facility] Address [address] [facility] [place] [address] Care Team Providers Care Bulk Picker Name Role Phone Tanya Jane MD Primary Care Provider [phone] Encounter Details Date Type Department Care Team ([facility] Contact Info) Description 10/19/2018 Orders Only [facility] [address] [place] [address] Tanya Blue DO [address] [place] [address] Rheumatoid arthritis with positive rheumatoid factor, involving [...] Visit [facility] [address] [facility], [place] [phone] Thalia Dunlap MD [address] [place] [address] 01/09/2025 2:30 PM CDT Office Visit [facility] - GI 1225 [place] [phone] Matias Lewis III, MD [address] [facility] 2L [place] [address] 02/25/2025 2:30 PM CDT Office Visit [facility] - Rheumatology [address] [facility], [place] [phone] Lonnie Tai MD [address] [facility] [place] [place] [address] documented as of this encounter Visit Diagnoses Diagnosis Rheumatoid arthritis with positive rheumatoid factor, involving unspecified site (HCC) Encounter for therapeutic drug level monitoring Encounter for therapeutic drug monitoring Need for influenza vaccination Need for prophylactic vaccination and inoculation against influenza Arthralgia of multiple joints Pain in joint, multiple sites documented in this encounter Care Teams Bulk Picker Relationship Specialty Start Date End Date Tanya Jane MD [address] [place] [address] [place] [address] PCP - General 01/05/18 07/09/24 documented as of this encounter
--- OUTSIDE RECORDS SUMMARY | 2024-11-09 23:16 | XMS_ITS | Encounter Summary ---
Author Organization [facility] Address [address] [facility] [place] [address] Care Team Providers Care Photovoltaic Testing Technician Name Role Phone Tanya Jane MD Primary Care Provider [phone] Encounter Details Date Type Department Care Team (Late Contact Info) Description 02/19/2021 Orders Only [facility] [address] [place] [phone] Lisette Choe MD No info available Seropositive [...] Description 01/09/2025 2:00 PM CDT Office Visit [facility] - [address] [phone] Thalia Dunlap MD [address] [place] [address] [address] 1 [place] [address] 01/09/2025 2:30 PM CDT Office Visit [facility] - [address] [phone] Matias Lewis III, MD [address] [place] [address] 2L [place] [address] 02/25/2025 2:30 PM CDT Office Visit [facility] - Rheumatology [address] [facility], [place] [phone] Lonnie Tai MD [address] [facility] [place] [address] documented as of this encounter Procedures Procedure Name Priority Date/Time Associated Diagnosis Comments C-REACTIVE PROTEIN Routine 03/02/2021 8: 22 AM CDT Seropositive erosive rheumatoid arthritis (HCC) Encounter for therapeutic drug monitoring ERYTHROCYTE SEDIMENTATION RATE Routine 03/02/2021 8:22 AM CDT Seropositive erosive rheumatoid arthritis (HCC) Encounter for therapeutic drug monitoring CBC W AUTO DIFFERENTIAL Routine 03/02/2021 8:22 AM CDT Seropositive erosive rheumatoid arthritis (HCC) Encounter for therapeutic drug monitoring COMPREHENSIVE METABOLIC PANEL Routine 03/02/2021 8:22 AM CDT Seropositive erosive rheumatoid arthritis (HCC) Encounter for therapeutic drug monitoring documented in this encounter Results * ERYTHROCYTE SEDIMENTATION RATE (03/02/2021 8:22 AM CDT) Erythrocyte Sedimentation Rate Westergren 2 0 - 40 mm/hr [facility] INSURANCE BILL Comment:FASTING Blood BLOOD SPECIMEN / Unknown 03/02/2021 8:22 AM CDT 03/02/2021 Narrative Resulting Agency Comment Lab Testing performed at: [facility] [address] [facility] ??[facility] [phone] Lisette Choe MD LAB - HEMATOLOGY ORD ERABLES [facility] INSURANCE BILL [address] [place] [address] * C-REACTIVE PROTEIN (03/02/2021 8:22 AM CDT) C-Reactive Protein 2 0 - 10 mg/L [facility] INSURANCE BILL Comment:FASTING Blood BLOOD SPECIMEN / Unknown 03/02/2021 8:22 AM CDT 03/02/2021 Narrative Resulting Agency Comment Lab Testing performed at: [facility] [place] [address] ??[facility] [id number] Lisette Choe MD LAB - CHEMISTRY ROBERT MAY [facility] INSURANCE BILL [address] [place] [address] * (ABNORMAL) COMPREHENSIVE METABOLIC PANEL (03/02/2021 8:22 [...] Agency Comment Lab Testing performed at: [facility] [address] [facility] ??[facility] [id number] Lisette Choe MD LAB - CHEMISTRY ROBERT MAY [facility] INSURANCE BILL [address] [place] [address] * (ABNORMAL) CBC WITH DIFFERENTIAL (03/02/2021 8:22 [...] Resulting Agency Comment Lab Testing performed at: [facility] ??[facility] [phone] Lisette Choe MD LAB - HEMATOLOGY ORD ERABLES [facility] INSURANCE BILL [address] [place] [address] documented in this encounter Visit Diagnoses Diagnosis Seropositive erosive rheumatoid arthritis (HCC) Encounter for therapeutic drug monitoring documented in this encounter Care Teams Photovoltaic Testing Technician Relationship Specialty Start Date End Date Tanya Jane MD [address] [place] [address] PCP - General 01/05/18 07/09/24 documented as of this encounter
--- OUTSIDE RECORDS SUMMARY | 2024-11-09 23:16 | XMS_ITS | Encounter Summary ---
Author Organization [facility] Address [address] [facility] [place] [address] Care Team Providers Care Bracelet Maker Novelty Name Role Phone Tanya Jane MD Primary Care Provider [phone] Encounter Details Date Type Department Care Team (Latest Contact Info) Description 05/22/2020 Orders Only [facility] [address] [place] [address] Tanya Blue DO [address] [place] [phone] Rheumatoid arthritis with positive rheumatoid factor, involving unspecified site (HCC); Other snf (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; Encounter for therapeutic drug level monitoring; 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, [place] [phone] Thalia Dunlap MD [facility] [address] OR [address] 1 [place] [phone] 01/09/2025 2:30 PM CDT Office Visit [facility] - GI [address] [facility], [place] [phone] Matias Lewis III, MD [address] [facility] 2L [place] [phone] 02/25/2025 2:30 PM CDT Office Visit [facility] - Rheumatology [address] [facility], [place] [phone] Lonnie Tai MD [address] [facility] [place], [place] [phone] documented as of this encounter Visit Diagnoses Diagnosis Rheumatoid arthritis with positive rheumatoid factor, involving unspecified site (HCC) Other snf (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 Encounter for therapeutic drug level monitoring Encounter for therapeutic drug monitoring [facility] (current) use of non-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-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 (nsaid) extermination supervisor current use of 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 Encounter for therapeutic drug monitoring documented in this encounter Care Teams Bracelet Maker Novelty Relationship Specialty Start Date End Date Tanya Jane MD [address] [place] [address] [place] [address] PCP - General 01/05/18 07/09/24 documented as of this encounter
--- OUTSIDE RECORDS SUMMARY | 2024-11-09 23:16 | XMS_ITS | Encounter Summary ---
Author Organization [facility] Address [address] [facility] [place] [address] Care Team Providers Care Accounts Receivable Processor Name Role Phone Tanya Jane MD Primary Care Provider [phone] Encounter Details Date Type Department Care Team (Late Contact Info) Description 12/18/2020 Orders Only [facility] [address] [place] [phone] Lisette Choe MD No info available Seropositive erosive rheumatoid arthritis (HCC) Social History [...] CDT Office Visit [facility] - [address] [phone] Thalia Dunlap MD [address] [place] [address] [address] 1 [place] [phone] 01/09/2025 2:30 PM CDT Office Visit [facility] - [address] [phone] Matias Lewis III, MD [address] [place] [address] [address] [place] [phone] 02/25/2025 2:30 PM CDT Office Visit [facility] - Rheumatology [address] [facility], [place] [address] Lonnie Tai MD [address] [facility] [place] [address] documented as of this encounter Visit Diagnoses Diagnosis Seropositive erosive rheumatoid arthritis (HCC)- Primary documented in this encounter Care Teams Accounts Receivable Processor Relationship Specialty Start Date End Date Tanya Jane MD [address] [place] [address] [place] [phone] PCP - General 01/05/18 07/09/24 documented as of this encounter
--- OUTSIDE RECORDS SUMMARY | 2024-11-09 23:16 | XMS_ITS | Encounter Summary ---
Author Organization [facility] Address [address] [facility] [place] [address] Care Team Providers Care Grating Machine Operator Name Role Phone Tanya Jane MD Primary Care Provider [phone] Encounter Details Date Type Department Care Team (Latest Contact Info) Description 01/17/2020 Orders Only [facility] [address] [place] [address] Tanya Blue DO [address] [place] [phone] Rheumatoid arthritis with positive rheumatoid factor, involving unspecified site (HCC); Other penitentiary (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; Encounter for therapeutic drug level monitoring; 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-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 (nsaid); half-way current use of 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; Encounter for [...] Group - GI [address] [facility], [place] [phone] Thalia Dunlap MD [facility] [address] [place] [phone] 01/09/2025 2:30 PM CDT Office Visit [facility] - [facility] [address] [facility], [place] [phone] Matias Lewis III, MD [address] [facility] 2L [place] [phone] 02/25/2025 2:30 PM CDT Office Visit [facility] - Rheumatology [address] [facility], [place] [phone] Lonnie Tai MD [address] [facility] 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 [address] PCP - General 01/05/18 07/09/24 documented as of this encounter
--- OUTSIDE RECORDS SUMMARY | 2024-11-09 23:16 | XMS_ITS | Encounter Summary ---
Author Organization [facility] Address [address] [facility] [place] [address] Care Team Providers Care Domestic Violence Advocate Name Role Phone Tanya Jane MD Primary Care Provider [phone] Reason for Visit * Reason Onset Date Comments Results 12/18/2020 Encounter Details Date Type Department Care Team (Late Contact Info) Description 12/18/2020 Telephone [facility], [place] [address] Lisette Choe MD No info available Results Social History Tobacco Use Types Packs/Day Years [...] Telephone Encounter - Lisette Choe MD - 12/18/2020 10:54 AM CST Patient called regarding lab results, safe to start Humira so Rx was sent. She was agreeable. OR MANAGER documented in this encounter Plan of Treatment Upcoming Encounters Date Type Department Care Team (Late Contact Info) Description 01/09/2025 2:00 PM CDT Office Visit [facility] [place] [address] [facility], [place] [address] [place] [address] [place] [address] [address] [place] [phone] 01/09/2025 2:30 PM CDT Office Visit [facility] [place] [address] [facility], [place] [phone] Matias Lewis III, MD [address] [facility] 2[address] [place] [address] 02/25/2025 2:30 PM CDT Office Visit [facility] - Rheumatology [address] [facility], [place] [phone] Lonnie Tai MD [address] [facility] [place], [place] [id number] documented as of this encounter Visit Diagnoses Not on filedocumented in this encounter Care Teams Domestic Violence Advocate Relationship Specialty Start Date End Date Tanya Jane MD [address] [place] [address] [place] [address] PCP - General 01/05/18 07/09/24 documented as of this encounter
--- OUTSIDE RECORDS SUMMARY | 2024-11-09 23:16 | XMS_ITS | Encounter Summary ---
Author Organization [facility] Address [address] [facility] [place] [address] Care Team Providers Care Delivery Crew Worker Name Role Phone Tanya Jane MD Primary Care Provider [phone] Encounter Details Date Type Department Care Team (Late Contact Info) Description 11/27/2020 Orders Only [facility] [address] [place] [phone] Lisette Choe MD No info available Seropositive [...] CDT Office Visit [facility] - [address] [phone] Thalia Dunlap MD [address] [place] [address] [address] [place] [address] 1 [place] [phone] 01/09/2025 2:30 PM CDT Office Visit [facility] - [address] [phone] Matias Lewis III, MD [address] [place] [address] [address] [place] [phone] 02/25/2025 2:30 PM CDT Office Visit [facility] - Rheumatology [address] [facility], [place] [phone] Lonnie Tai MD [address] [facility] [place] [address] documented as of this encounter Procedures Procedure Name Priority Date/Time Associated Diagnosis Comments C-REACTIVE PROTEIN Routine 12/11/2020 8: 31 AM CHIEF BUSINESS OFFICER Seropositive erosive rheumatoid arthritis (HCC) Encounter for therapeutic drug monitoring ERYTHROCYTE SEDIMENTATION RATE Routine 12/11/2020 8:31 AM CHIEF BUSINESS OFFICER Seropositive erosive rheumatoid arthritis (HCC) Encounter for therapeutic drug monitoring CBC W AUTO DIFFERENTIAL Routine 12/11/2020 8:31 AM CHIEF BUSINESS OFFICER Seropositive erosive rheumatoid arthritis (HCC) Encounter for therapeutic drug monitoring COMPREHENSIVE METABOLIC PANEL Routine 12/11/2020 8:31 AM CHIEF BUSINESS OFFICER Seropositive erosive rheumatoid arthritis (HCC) Encounter for therapeutic drug monitoring documented in this encounter Results * ERYTHROCYTE SEDIMENTATION RATE (12/11/2020 8:31 AM CHIEF BUSINESS OFFICER) Erythrocyte Sedimentation Rate Westergren 2 0 - 40 mm/hr [facility] INSURANCE BILL Comment:FASTING Blood BLOOD SPECIMEN / Unknown 12/11/2020 8:31 AM CHIEF BUSINESS OFFICER 12/11/2020 Narrative Resulting Agency Comment Lab Testing performed at: [facility] [address] [facility] [id number] Lisette Choe MD LAB - HEMATOLOGY ORD ERABLES [facility] INSURANCE BILL [address] [place] [address] * C-REACTIVE PROTEIN (12/11/2020 8:31 AM CHIEF BUSINESS OFFICER) C-Reactive Protein 3 0 - 10 mg/L [facility] INSURANCE BILL Comment:FASTING Blood BLOOD SPECIMEN / Unknown 12/11/2020 8:31 AM CHIEF BUSINESS OFFICER 12/11/2020 Narrative Resulting Agency Comment Lab Testing performed at: [facility] [address] [facility] [id number] Lisette Choe MD LAB - CHEMISTRY ROBERT MAY [facility] INSURANCE BILL [address] [place] [address] * (ABNORMAL) COMPREHENSIVE METABOLIC PANEL (12/11/2020 8:31 AM CHIEF BUSINESS OFFICER) Glucose 218(H) 65 - 99 mg/dL [facility] [...] BLOOD SPECIMEN / Unknown 12/11/2020 8:31 AM CHIEF BUSINESS OFFICER 12/11/2020 Narrative Resulting Agency Comment Lab Testing performed at: [facility] [address] [facility] [id number] Lisette Choe MD LAB - CHEMISTRY ROBERT MAY [facility] INSURANCE BILL [address] [place] [address] * (ABNORMAL) CBC WITH DIFFERENTIAL (12/11/2020 8:31 AM CHIEF BUSINESS OFFICER) WBC 8.4 3.4 - 10.8 x10E3/uL [facility] [...] BLOOD SPECIMEN / Unknown 12/11/2020 8:31 AM CHIEF BUSINESS OFFICER 12/11/2020 Narrative Resulting Agency Comment Lab Testing performed at: [facility] [place] [id number] [facility] [id number] Lisette Choe MD LAB - HEMATOLOGY ORD ERABLES [facility] INSURANCE BILL [address] [place] [address] documented in this encounter Visit Diagnoses Diagnosis Seropositive erosive rheumatoid arthritis (HCC) Encounter for therapeutic drug monitoring documented in this encounter Care Teams Delivery Crew Worker Relationship Specialty Start Date End Date Tanya Jane MD [address] [place] [address] [place] [address] PCP - General 01/05/18 07/09/24 documented as of this encounter
--- OUTSIDE RECORDS SUMMARY | 2024-11-09 23:16 | XMS_ITS | Encounter Summary ---
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; Encounter for therapeutic drug [...] [facility], [place] [phone] Thalia Dunlap MD [address] [facility] [address] 1 [place] [phone] 01/09/2025 2:30 PM CDT Office Visit [facility] [address] [facility], [place] [phone] Matias Lewis III, MD [address] [facility] 2L [place] [phone] 02/25/2025 2:30 PM CDT Office Visit [facility] - Rheumatology [address] [facility], [place] [phone] Lonnie Tai MD [address] [facility] [place] [address] documented as of this encounter Visit Diagnoses Diagnosis Rheumatoid arthritis with positive rheumatoid factor, involving unspecified site (HCC) Other alf (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 Encounter for therapeutic drug level monitoring Encounter for therapeutic drug monitoring Essential hypertension Type 2 diabetes mellitus without complication, without long-term current use of insulin (HCC) documented in this encounter Care Teams Collar Tailor Relationship Specialty Start Date End Date Tanya Jane MD [address] [place] [address] [place] [address] PCP - General 01/05/18 07/09/24 documented as of this encounter
--- OUTSIDE RECORDS SUMMARY | 2024-11-09 23:16 | XMS_ITS | Encounter Summary ---
Author Organization [facility] Address [address] [place] [address] Care Team Providers Care Hr Shared Services Consultant Name Role Phone Tanya Jane MD Primary Care Provider [phone] Encounter Details Date Type Department Care Team (Late Contact Info) Description 12/21/2018 Orders Only [facility] [address] [place] [address] Tanya Blue DO [address] [place] [phone] Rheumatoid arthritis with positive rheumatoid factor, involving unspecified site (HCC); Other salvage determiner (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; Encounter for therapeutic drug [...] [facility] [address] [facility], [place] [phone] Thalia Dunlap MD [address] [facility] [address] 1 [place] [phone] 01/09/2025 2:30 PM CDT Office Visit [facility] [address] [facility], [place] [phone] Matias Lewis III, MD [address] [facility] 2L [place] [phone] 02/25/2025 2:30 PM CDT Office Visit [facility] - Rheumatology [address] [facility], [place] [phone] Lonnie Tai MD [address] [facility] [place] [address] documented as of this encounter Visit Diagnoses Diagnosis Rheumatoid arthritis with positive rheumatoid factor, involving unspecified site (HCC) Other care home (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 Encounter for therapeutic drug level monitoring Encounter for therapeutic drug monitoring Essential hypertension Type 2 diabetes mellitus without complication, without long-term current use of insulin (HCC) documented in this encounter Care Teams Hr Shared Services Consultant Relationship Specialty Start Date End Date Tanya Jane MD [address] [place] [address] [place] [phone] PCP - General 01/05/18 07/09/24 documented as of this encounter
--- OUTSIDE RECORDS SUMMARY | 2024-11-09 23:16 | XMS_ITS | Encounter Summary ---
Author Organization [facility] Address [address] [facility] [place] [address] Care Team Providers Care Anodize Machine Operator Name Role Phone Tanya Jane MD Primary Care Provider [phone] Reason for Visit * Reason Comments Refill Request Encounter Details Date Type Department Care Team (Late Contact Info) Description 07/20/2019 Refill [facility] [address] [place] [address] Tanya Blue DO [address] [place] [phone] Refill Request Social History Tobacco Use Types [...] GI [address] [facility], [place] [phone] Thalia Dunlap MD [address] [facility] [address] [place] [phone] 01/09/2025 2:30 PM CDT Office Visit [facility] [address] [facility], [facility] [place] [phone] Matias Lewis III, MD [address] [place], [place] [address] [address]L [place] [address] 02/25/2025 2:30 PM CDT Office Visit [facility] Rheumatology [address] [facility], [place] [address] Lonnie Tai MD [address] [facility] [place] [address] documented as of this encounter Visit Diagnoses Not on filedocumented in this encounter Care Teams Anodize Machine Operator Relationship Specialty Start Date End Date Tanya Jane MD [address] [place] [address] [place] [address] PCP - General 01/05/18 07/09/24 documented as of this encounter
--- OUTSIDE RECORDS SUMMARY | 2024-11-09 23:16 | XMS_ITS | Encounter Summary ---
Author Organization [facility] Address [address] [facility] [place] [address] Care Team Providers Care Preparer Samples And Repairs Name Role Phone Tanya Jane MD Primary Care Provider [phone] Encounter Details Date Type Department Care Team (Latest Contact Info) Description 04/17/2019 8:30 AM CDT - 04/17/2019 11:59 PM CDT Hospital Encounter [facility] DIAGNOSTIC RAD OP [address] [place] [phone] Tanya Blue DO [address] [place] [phone] Discharge Disposition: Home or Self Care Social [...] Sig Dispensed Refills Start Date End Date fenofibrate (LOFIBRA) 160 MG tablet Take 1 (one) tablet by mouth 07/23/2016 GLIPIZIDE XL 10 MG tablet Take 1 (one) tablet by mouth 2 times daily 3 06/05/2018 levothyroxine (SYNTHROID) 75 MCG tablet Take 1 (one) tablet by mouth DAILY 08/02/2016 losartan (COZAAR) 100 MG tablet Take 1 (one) tablet by mouth once daily 4 03/21/2018 metFORMIN (GLUCOPHAGE) 1000 MG tablet Take 1 (one) tablet by mouth BID 2 12/18/2017 ONETOUCH VERIO test strip Use 1 (one) strip as directed 4 03/09/2018 simvastatin (ZOCOR) 20 MG tablet Take 1 (one) tablet by mouth 07/23/2016 Nstxbyt-Ylvctrjns-Phnes in D (CALCIUM 1200+D3) 600-40-500 MG-MG-UNIT TB24 Take 1 tablet by mouth. 2016 05/05/2021 cyanocobalamin (VITAMIN B-12) 1000 MCG tablet Take 1,000 mcg by mouth once daily 4 01/15/2019 05/05/2021 hydroCHLOROthiazide (MICROZIDE) 12.5 MG capsule Take 12.5 mg by mouth DAILY. 07/15/2016 10/30/2019 leflunomide (ARAVA) 20 MG tablet Take 1 tablet by mouth once daily 90 tablet 2 11/14/2018 11/19/2019 meloxicam (MOBIC) 7.5 MG tablet Take 1 tablet by mouth once daily 90 tablet 2 11/14/2018 12/02/2019 [place]-3 Fatty Acids (FISH OIL) 1000 MG capsule Take 1,200 mg by mouth BID. 2016 05/05/2021 documented as of this encounter Plan of Treatment Upcoming Encounters Date Type Department Care Team (Late st Contact Info) Description 01/09/2025 2:00 PM CDT Office Visit [facility] - [address], [place] [address] Thalia Dunlap MD [facility] [address] 1 [place] [phone] 01/09/2025 2:30 PM CDT Office Visit [facility] [address] [place] [address], [place] [phone] Matias Lewis III, MD [address] [facility] [address] [address] 02/25/2025 2:30 PM CDT Office Visit [facility] - Rheumatology [address] [place] [address], [place] [phone] Lonnie Tai MD [address] [facility] 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 Encounter for therapeutic drug level monitoring Essential hypertension Type 2 diabetes mellitus without complication, without long-term current use of insulin (HCC) XR HAND LEFT 2VW Routine 04/17/2019 8:38 AM CDT Rheumatoid arthritis with positive rheumatoid factor, involving unspecified site (HCC) 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 teacher (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 Encounter for therapeutic drug level monitoring Essential hypertension Type 2 diabetes mellitus without complication, without long-term current use of insulin (HCC) documented in this encounter Results * XR HAND LEFT [...] Wrist / Hand Radiographic Adelina ging 04/17/2019 8:3 9 AM CDT Impressions 04/17/2019 9:16 AM CDT [...] rheumatoid factor, involving unspecified site (HCC) 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
--- OUTSIDE RECORDS SUMMARY | 2024-11-09 23:16 | XMS_ITS | Encounter Summary ---
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 - Rheumatology [address] [facility], [place] [phone] Lonnie Tai MD [address] [facility] 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 Encounter for therapeutic drug level monitoring Essential hypertension Type 2 diabetes mellitus without complication, without long-term current use of insulin (HCC) URINALYSIS W/MICROSCOPIC REFLEX TO CULTURE Routine 10/18/2019 8:45 AM PRODUCTION MAINTENANCE MECHANIC Rheumatoid arthritis with positive rheumatoid factor, involving unspecified site (HCC) 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 Encounter for therapeutic drug level monitoring Essential hypertension Type 2 diabetes mellitus without complication, without long-term current use of insulin (HCC) C-REACTIVE PROTEIN Routine 10/18/2019 8: 45 AM PRODUCTION MAINTENANCE MECHANIC Rheumatoid arthritis with positive rheumatoid factor, involving unspecified site (HCC) 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 Encounter for therapeutic drug level monitoring Essential hypertension Type 2 diabetes mellitus without complication, without long-term current use of insulin (HCC) ERYTHROCYTE SEDIMENTATION RATE Routine 10/18/2019 8:45 AM PRODUCTION MAINTENANCE MECHANIC Rheumatoid arthritis with positive rheumatoid factor, involving unspecified site (HCC) 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 Encounter for therapeutic drug level monitoring Essential hypertension Type 2 diabetes mellitus without complication, without long-term current use of insulin (HCC) CBC W AUTO DIFFERENTIAL Routine 10/18/2019 8:45 AM PRODUCTION MAINTENANCE MECHANIC Rheumatoid arthritis with positive rheumatoid factor, involving unspecified site (HCC) Other skilled nursing (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 Encounter for therapeutic drug level monitoring Essential hypertension Type 2 diabetes mellitus without complication, without long-term current use of insulin (HCC) COMPREHENSIVE METABOLIC PANEL Routine 10/18/2019 8:45 AM PRODUCTION MAINTENANCE MECHANIC Rheumatoid arthritis with positive rheumatoid factor, involving unspecified site (HCC) 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 10/18/2019 8:45 AM PRODUCTION MAINTENANCE MECHANIC 10/18/2019 Narrative Resulting Agency Comment Lab Testing performed at: [employer] ??[facility] [phone] Tanya Blue DO LAB - URINALYSIS ORD ERABLES [facility] INSURANCE BILL [address] [place] [address] * URINALYSIS W/MICROSCOPIC REFLEX TO CULTURE (10/18/2019 8:45 AM PRODUCTION MAINTENANCE MECHANIC) Specific [place] UA 1.006 1.005 - 1.030 [facility] INSURANCE BILL pH [...] OBTAINED BY CLEAN CATCH PROCEDURE / Unknown 10/18/2019 8:45 AM PRODUCTION MAINTENANCE MECHANIC 10/18/2019 Narrative Resulting Agency Comment Lab Testing performed at: [employer] [address] ??[facility] [phone] Tanya Blue DO LAB - URINALYSIS ORD ERABLES [facility] INSURANCE BILL [address] [place] [address] * ERYTHROCYTE SEDIMENTATION RATE (10/18/2019 8:45 AM PRODUCTION MAINTENANCE MECHANIC) Erythrocyte Sedimentation Rate Westergren 2 0 - 40 mm/hr [facility] INSURANCE BILL Comment:FASTING Blood BLOOD SPECIMEN / Unknown 10/18/2019 8:45 AM PRODUCTION MAINTENANCE MECHANIC 10/18/2019 Narrative Resulting Agency Comment Lab Testing performed at: [employer] [place] [employer] [place], [place] [address] ??[facility] [phone] Tanya Zackery Blue DO LAB - HEMATOLOGY ORD ERABLES [facility] INSURANCE BILL [address] [place] [address] * C-REACTIVE PROTEIN (10/18/2019 8:45 AM PRODUCTION MAINTENANCE MECHANIC) C-Reactive Protein 3 0 - 10 mg/L [facility] INSURANCE BILL Comment:FASTING Blood BLOOD SPECIMEN / Unknown 10/18/2019 8:45 AM PRODUCTION MAINTENANCE MECHANIC 10/18/2019 Narrative Resulting Agency Comment Lab Testing performed at: [facility] [place] [id number] [facility] ??[facility] [phone] Tanya Blue DO LAB - CHEMISTRY ORDE RABLES [facility] INSURANCE BILL [address] [place] [address] * (ABNORMAL) COMPREHENSIVE METABOLIC PANEL (10/18/2019 8:45 AM PRODUCTION MAINTENANCE MECHANIC) Glucose 157(H) 65 - 99 mg/dL [facility] INSURANCE BILL BUN 11 8 - 27 mg/dL [facility] INSURANCE BILL Creatinine 1.03(H) 0.57 - 1.00 mg/dL [facility] INSURANCE BILL eGFR by MDRD 56(L) >59 mL/min/1.7 3 [facility] INSURANCE BILL eGFR by MDRD 65 >59 mL/min/1.7 3 [facility] INSURANCE BILL BUN/Creatinine Ratio 11(L) 12 - 28 [facility] INSURANCE BILL Sodium 136 134 - 144 mmol/L [facility] INSURANCE BILL Potassium 3.9 3.5 - 5.2 mmol/L [facility] INSURANCE BILL Chloride 96 96 - 106 mmol/L [facility] INSURANCE BILL CO2 23 20 - 29 mmol/L [facility] INSURANCE BILL Calcium 9.6 8.7 - 10.3 mg/dL [facility] INSURANCE BILL Protein Total 6.2 6.0 - 8.5 g/dL [facility] INSURANCE BILL Albumin 4.4 3.6 - 4.8 g/dL [facility] INSURANCE BILL Globulin Total 1.8 1.5 - 4.5 g/dL [facility] INSURANCE BILL Albumin/Globulin Ratio 2.4(H) 1.2 - 2.2 [facility] INSURANCE BILL Bilirubin Total 0.3 0.0 - 1.2 mg/dL [facility] INSURANCE BILL Alkaline Phosphatase 97 39 - 117 IU/L [facility] INSURANCE BILL AST 22 0 - 40 IU/L [facility] INSURANCE BILL ALT 26 0 - 32 IU/L [facility] INSURANCE BILL Comment:FASTING Blood BLOOD SPECIMEN / Unknown 10/18/2019 8:45 AM PRODUCTION MAINTENANCE MECHANIC 10/18/2019 Narrative Resulting Agency Comment Lab Testing performed at: [email or web address] [address] ??[facility] [phone] Tanya Blue DO LAB - CHEMISTRY ROBERT MAY [facility] INSURANCE BILL [address] [place] [address] * (ABNORMAL) CBC WITH DIFFERENTIAL (10/18/2019 8:45 AM PRODUCTION MAINTENANCE MECHANIC) WBC 7.2 3.4 - 10.8 x10E3/uL [facility] INSURANCE BILL RBC 3.79 3.77 - 5.28 x10E6/uL [facility] INSURANCE BILL Hemoglobin 11.4 11.1 - 15.9 g/dL [facility] INSURANCE BILL Hematocrit 34.1 34.0 - 46.6 % [facility] INSURANCE BILL MCV 90 79 - 97 fL [facility] INSURANCE BILL MCH 30.1 26.6 - 33.0 pg [facility] INSURANCE BILL MCHC 33.4 31.5 - 35.7 g/dL [facility] INSURANCE BILL RDW 16.8(H) 12.3 - 15.4 % [facility] INSURANCE BILL Comment: Effective October 28, 2019, the RDW pediatric reference ??interval will be removed and the adult reference interval ??will be changing to: ? Female 11.7 - 15.4 ? Male 11.6 - 15.4 Platelet Count 305 150 - 450 x10E3/uL [facility] INSURANCE BILL [...] the test is not needed. Granulocytes Absolute 4.5 1.4 - 7.0 x10E3/uL [facility] INSURANCE BILL [...] not needed. 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 [phone] PCP - General 01/05/18 07/09/24 documented as of this encounter
--- OUTSIDE RECORDS SUMMARY | 2024-11-09 23:16 | XMS_ITS | Encounter Summary ---
Author Organization [facility] Address [address] [facility] [place] [address] Care Team Providers Care Technical Product Manager Name Role Phone Tanya Jane MD Primary Care Provider Reason for Visit * Reason Comments Refill Request Encounter Details Date Type Department Care Team (Late Contact Info) Description 05/20/2019 Refill [facility] [address] [place] [address] Tanya Blue DO [address] [place] [phone] Refill Request Social History Tobacco Use Types [...] [address] [facility], [place] [address] Thalia Dunlap MD [address] [facility] [address] [place] [address] 01/09/2025 2:30 PM CDT Office Visit [facility] 12[address] [facility], [facility] [place] [phone] Matias Lewis III, MD [address] [place], [place] [address] 2L [place] [address] 02/25/2025 2:30 PM CDT Office Visit [facility] Rheumatology [address] [facility], [place] [address] Lonnie Tai MD [address] [facility] [place] [address] documented as of this encounter Visit Diagnoses Not on filedocumented in this encounter Care Teams Technical Product Manager Relationship Specialty Start Date End Date Tanya Jane MD [address] [place] [address] [place] [address] PCP - General 01/05/18 07/09/24 documented as of this encounter
--- OUTSIDE RECORDS SUMMARY | 2024-11-09 23:16 | XMS_ITS | Encounter Summary ---
Author Organization [facility] Address [address] [facility] [address] Care Team Providers Care Can Feeder Name Role Phone Tanya Jane MD Primary Care Provider [phone] Encounter Details Date Type Department Care Team (Latest Contact Info) Description 08/14/2020 Orders Only [facility] [address] [place] [address] Tanya Blue DO [address] [place] [phone] Rheumatoid arthritis with positive rheumatoid factor, involving unspecified site (HCC); Other alf (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; Encounter for therapeutic drug level monitoring; 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 [address] [place] [address] [place] [address] 01/09/2025 2:30 PM CDT [facility] [address] [facility], [place] [address] Matias Lewis III, MD [address] [facility] 2[place] [address] 02/25/2025 2:30 PM CDT Office Visit [facility] - Rheumatology [address] [facility], [place] [address] Lonnie Tai MD [address] [facility] [place] [address] documented as of this encounter Procedures Procedure Name Priority Date/Time Associated Diagnosis Comments URINALYSIS MICROSCOPIC ONLY REFLEXED Routine 09/01/2020 11:27 AM COLLATING MACHINE OPERATOR Rheumatoid arthritis with positive rheumatoid factor, involving unspecified site (HCC) Other alf (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 Encounter for therapeutic drug level monitoring jail (current) use of non-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-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 (nsaid) jail current use of 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 Encounter for therapeutic drug monitoring URINALYSIS W/MICROSCOPIC REFLEX TO CULTURE Routine 09/01/2020 11:27 AM COLLATING MACHINE OPERATOR Rheumatoid arthritis with positive rheumatoid factor, involving unspecified site (HCC) Other alf (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 Encounter for therapeutic drug level monitoring 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 non-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-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 (nsaid) terminal block assembler current use of 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 Encounter for therapeutic drug monitoring C-REACTIVE PROTEIN Routine 09/01/2020 11 :27 AM COLLATING MACHINE OPERATOR Rheumatoid arthritis with positive rheumatoid factor, involving unspecified site (HCC) Other alf (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 Encounter for therapeutic drug level monitoring jail (current) use of non-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-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 (nsaid) terminal block assembler current use of 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 Encounter for therapeutic drug monitoring ERYTHROCYTE SEDIMENTATION RATE Routine 09/01/2020 11:27 AM COLLATING MACHINE OPERATOR Rheumatoid arthritis with positive rheumatoid factor, involving unspecified site (HCC) Other alf (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 Encounter for therapeutic drug level monitoring jail (current) use of non-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-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 (nsaid) jail current use of 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 Encounter for therapeutic drug monitoring CBC W AUTO DIFFERENTIAL Routine 09/01/2020 11:27 AM COLLATING MACHINE OPERATOR Rheumatoid arthritis with positive rheumatoid factor, involving unspecified site (HCC) Other alf (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 Encounter for therapeutic drug level monitoring jail (current) use of non-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-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 (nsaid) jail current use of 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 Encounter for therapeutic drug monitoring COMPREHENSIVE METABOLIC PANEL Routine 09/01/2020 11:27 AM COLLATING MACHINE OPERATOR Rheumatoid arthritis with positive rheumatoid factor, involving unspecified site (HCC) 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 09/01/2020 11:2 7 AM COLLATING MACHINE OPERATOR 09/01/2020 Narrative Resulting Agency Comment Lab Testing performed at: [facility] [place] [address] ??[facility] [phone] Tanya Blue DO LAB - URINALYSIS ORD ERABLES [facility] INSURANCE BILL [address] [place] [address] * (ABNORMAL) URINALYSIS W/MICROSCOPIC REFLEX TO CULTURE (09/01/2020 11:27 AM COLLATING MACHINE OPERATOR) Specific [place] UA 1.010 1.005 - 1.030 [facility] INSURANCE BILL pH UA 6.5 5.0 - 7.5 [facility] INSURANCE BILL Color UA Yellow Yellow [facility] INSURANCE BILL Appearance Clear Clear [facility] INSURANCE BILL Leukocyte UA Negative Negative [facility] INSURANCE BILL Protein UA Negative Negative/Tra ce [facility] INSURANCE BILL Glucose UA Trace(A) Negative [facility] INSURANCE BILL Ketone UA Negative Negative [facility] INSURANCE BILL Occult Blood Urine Negative Negative [facility] INSURANCE BILL Bilirubin UA Negative Negative [facility] INSURANCE BILL Urobilinogen 0.2 0.2 - 1.0 mg/dL [facility] INSURANCE BILL Nitrite UA Negative Negative [facility] INSURANCE BILL Microscopic Examination Urine [facility] INSURANCE BILL Comment:Microscopic follows if indicated. Microscopic Examination Urine See below: [facility] INSURANCE BILL Comment:Microscopic was abdoul cated and was performed. Urinalysis Reflex [facility] INSURANCE BILL Comment:This specimen will n ot reflex to a Urine Culture. Urine URINE SPECIMEN OBTAINED BY CLEAN CATCH PROCEDURE / Unknown 09/01/2020 11:27 AM COLLATING MACHINE OPERATOR 09/01/2020 Narrative Resulting Agency Comment Lab Testing performed at: [facility] [place] [address] ??[facility] [phone] Tanyaivana Lozoyaer DO LAB - URINALYSIS ORD ERABLES [facility] INSURANCE BILL [address] [place] [address] * C-REACTIVE PROTEIN (09/01/2020 11:27 AM COLLATING MACHINE OPERATOR) C-Reactive Protein 3 0 - 10 mg/L [facility] INSURANCE BILL Blood BLOOD SPECIMEN / Unknown 09/01/2020 11:27 AM COLLATING MACHINE OPERATOR 09/01/2020 Narrative Resulting Agency Comment Lab Testing performed at: [facility] [address] ??[facility] [phone] Tanya Blue DO LAB - CHEMISTRY ORDE RABLES Performing Organization Address City/[facility]/ZIP Co de Phone Number [facility] INSURANCE BILL [address] [place] [address] * ERYTHROCYTE SEDIMENTATION RATE (09/01/2020 11:27 AM COLLATING MACHINE OPERATOR) Erythrocyte Sedimentation Rate Westergren 2 0 - 40 mm/hr [facility] INSURANCE BILL Blood BLOOD SPECIMEN / Unknown 09/01/2020 11:27 AM COLLATING MACHINE OPERATOR 09/01/2020 Narrative Resulting Agency Comment Lab Testing performed at: [facility] [place] [address] [place] [address] ??[facility] [phone] Tanya Blue DO LAB - HEMATOLOGY ORD ERABLES Performing Organization Address City/[facility]/ZIP Co de Phone Number [facility] INSURANCE BILL [address] [place] [address] * (ABNORMAL) COMPREHENSIVE METABOLIC PANEL (09/01/2020 11:27 AM COLLATING MACHINE OPERATOR) Glucose 284(H) 65 - 99 mg/dL [facility] INSURANCE BILL BUN 10 8 - 27 mg/dL [facility] INSURANCE BILL Creatinine 1.15(H) 0.57 - 1.00 mg/dL [facility] INSURANCE BILL eGFR by MDRD 49(L) >59 mL/min/1.7 3 [facility] INSURANCE BILL eGFR by MDRD 56(L) >59 mL/min/1.7 3 [facility] INSURANCE BILL BUN/Creatinine Ratio 9(L) 12 - 28 [facility] INSURANCE BILL Sodium 133(L) 134 - 144 mmol/L [facility] INSURANCE BILL Potassium 5.0 3.5 - 5.2 mmol/L [facility] INSURANCE BILL Chloride 95(L) 96 - 106 mmol/L [facility] INSURANCE BILL CO2 21 20 - 29 mmol/L [facility] INSURANCE BILL Calcium 9.9 8.7 - 10.3 mg/dL [facility] INSURANCE BILL Protein Total 6.7 6.0 - 8.5 g/dL [facility] INSURANCE BILL Albumin 4.5 3.8 - 4.8 g/dL [facility] INSURANCE BILL Globulin Total 2.2 1.5 - 4.5 g/dL [facility] INSURANCE BILL Albumin/Globulin Ratio 2.0 1.2 - 2.2 [facility] INSURANCE BILL Bilirubin Total 0.8 0.0 - 1.2 mg/dL [facility] INSURANCE BILL Alkaline Phosphatase 162(H) 39 - 117 IU/L [facility] INSURANCE BILL AST 39 0 - 40 IU/L [facility] INSURANCE BILL ALT 46(H) 0 - 32 IU/L [facility] INSURANCE BILL Blood BLOOD SPECIMEN / Unknown 09/01/2020 11:27 AM COLLATING MACHINE OPERATOR 09/01/2020 Narrative Resulting Agency Comment Lab Testing performed at: [facility] ??[facility] [phone] Tanya Blue DO LAB - CHEMISTRY ROBERT MAY [facility] INSURANCE BILL [address] [place] [address] * (ABNORMAL) CBC WITH DIFFERENTIAL (09/01/2020 11:27 AM COLLATING MACHINE OPERATOR) WBC 9.1 3.4 - 10.8 x10E3/uL [facility] INSURANCE BILL RBC 3.28(L) 3.77 - 5.28 x10E6/uL [facility] INSURANCE BILL Hemoglobin 10.5(L) 11.1 - 15.9 g/dL [facility] INSURANCE BILL Hematocrit 32.6(L) 34.0 - 46.6 % [facility] INSURANCE BILL MCV 99(H) 79 - 97 fL [facility] INSURANCE BILL MCH 32.0 26.6 - 33.0 pg [facility] INSURANCE BILL MCHC 32.2 31.5 - 35.7 g/dL [facility] INSURANCE BILL RDW 14.4 11.7 - 15.4 % [facility] INSURANCE BILL Platelet Count 320 150 - 450 x10E3/uL [facility] INSURANCE BILL Granulocytes % 68 Not Estab. % [facility] INSURANCE BILL Lymphocytes % 21 Not Estab. % [facility] INSURANCE BILL Monocytes % 8 Not Estab. % [facility] INSURANCE BILL Eosinophils % 1 Not Estab. % [facility] INSURANCE BILL Basophils % 2 Not Estab. % [facility] INSURANCE BILL Immature Cells NOT NEEDED [facility] INSURANCE BILL Comment:Ancillary determined the test is not needed. Granulocytes Absolute 6.2 1.4 - 7.0 x10E3/uL [facility] INSURANCE BILL Lymphocytes Absolute 1.9 0.7 - 3.1 x10E3/uL [facility] INSURANCE BILL Monocytes Absolute 0.7 0.1 - 0.9 x10E3/uL [facility] INSURANCE BILL [...] Comment Hematology NOT NEEDED [facility] INSURANCE BILL Comment:Ancillary determined the test is not needed. Blood BLOOD SPECIMEN / Unknown 09/01/2020 11:27 AM COLLATING MACHINE OPERATOR 09/01/2020 Narrative Resulting Agency Comment Lab Testing performed at: [facility] [place] [id number] [facility] ??[facility] [phone] Tanya Blue DO LAB - HEMATOLOGY ORD ERABLES [facility] INSURANCE BILL [address] [place] [address] documented in this encounter Visit Diagnoses Diagnosis Rheumatoid arthritis with positive rheumatoid factor, involving unspecified site (HCC) Other watermelon inspector (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 Encounter for therapeutic drug level monitoring Encounter for therapeutic drug monitoring 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 non-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-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 (nsaid) terminal block assembler current use of 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 Encounter for therapeutic drug monitoring documented in this encounter Care Teams Can Feeder Relationship Specialty Start Date End Date Tanya Jane MD [address] [place] [address] [place] [address] PCP - General 01/05/18 07/09/24 documented as of this encounter
--- OUTSIDE RECORDS SUMMARY | 2024-11-09 23:16 | XMS_ITS | Encounter Summary ---
Author Organization [facility] Address [address] [facility] [place] [address] Care Team Providers Care Flanger Name Role Phone Tanya Jane MD Primary Care Provider [phone] Encounter Details Date Type Department Care Team ([facility] Contact Info) Description 01/18/[address] [facility] - COVID Vax [address] [place] [address] Emeka Madrigal MD [address] [place] [phone] Need for vaccination Social History Tobacco Use Types Packs/Day Years [...] Upcoming Encounters Date Type Department Care Team ([facility] Contact Info) Description 01/09/2025 2:00 PM CDT Office Visit [facility] - GI 1225 [facility], [place] [phone] Thalia Dunlap MD 12[address] [facility] [address] [place] [address] 01/09/2025 2:30 PM CDT Office Visit [facility] - GI 1225 [facility], [place] [phone] Matias Lewis III, MD [address] [place] [address] [address]L [place] [address] 02/25/2025 2:30 PM CDT Office Visit [facility] - Rheumatology 12[address] [facility], [place] [address] Lonnie Tai MD [address] [facility] [place] [address] documented as of this encounter Visit Diagnoses Diagnosis Need for vaccination Need for prophylactic vaccination and inoculation against unspecified single disease documented in this encounter Care Teams Flanger Relationship Specialty Start Date End Date Tanya Jane MD [address] [place] [address] [place] [address] PCP - General 01/05/18 07/09/24 documented as of this encounter
--- OUTSIDE RECORDS SUMMARY | 2024-11-09 23:16 | XMS_ITS | Encounter Summary ---
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; Encounter for therapeutic drug [...] Visit [facility] - GI [address] [facility], [place] [phone] Thalia Dunlap MD [address] [facility] [address] 1 [place] [address] 01/09/2025 2:30 PM CDT Office Visit [facility] - GI [address] [facility], [place] [address] Matias Lewis III, MD [address] [facility] 2L [place] [address] 02/25/2025 2:30 PM CDT Office Visit [facility] - Rheumatology [address] [facility], [place] [address] Lonnie Tai MD [address] [facility] [place] [address] documented as of this encounter Visit Diagnoses Diagnosis Rheumatoid arthritis with positive rheumatoid factor, involving unspecified site (HCC) Other group home (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 Encounter for therapeutic drug level monitoring Encounter for therapeutic drug monitoring Essential hypertension Type 2 diabetes mellitus without complication, without long-term current use of insulin (HCC) documented in this encounter Care Teams Barrel Cap Setter Relationship Specialty Start Date End Date Tanya Jane MD [address] [place] [address] [place] [address] PCP - General 01/05/18 07/09/24 documented as of this encounter
--- OUTSIDE RECORDS SUMMARY | 2024-11-09 23:17 | XMS_ITS | Encounter Summary ---
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; Encounter for [...] Visit [facility] - GI [address] [facility], [place] [address] Thalia Dunlap MD [address] [facility] [address] [place] [address] 1 [place] [address] 01/09/2025 2:30 PM CDT Office Visit [facility] - GI [address] [facility], [place] [address] Matias Lewis III, MD [address] [facility] 2L [place] [address] 02/25/2025 2:30 PM CDT Office Visit [facility] - Rheumatology [address] [facility], [place] [address] Lonnie Tai MD [address] [facility] [place] [address] documented as of this encounter Visit Diagnoses Diagnosis 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 arthritis (HCC) Rheumatoid arthritis Arthralgia of multiple joints Pain in joint, multiple sites [facility] current use of 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 Encounter for therapeutic drug monitoring documented in this encounter Care Teams Pipelines Superintendent Relationship Specialty Start Date End Date Tanya Jane MD [address] [place] [address] PCP - General 01/05/18 07/09/24 documented as of this encounter
--- OUTSIDE RECORDS SUMMARY | 2024-11-09 23:17 | XMS_ITS | Encounter Summary ---
Author Organization [facility] Address [address] [place] [address]. [place], [place] [address] [place] [address] Care Team Providers Care Director Of Loss Prevention Name Role Phone Toshia Carrasco MD Primary Care Provider Unavailable Toshia Carrasco MD Primary Care Provider Unavailable Encounter Details Date Type Department Care Team (Late st Contact Info) Description 10/24/1995 Abstract [facility] CONVERSION [address] [place] [id number] Toshia Carrasco MD Social History Tobacco Use Types Packs/Day Years Used Date Smoking Tobacco: Never Assessed Comments Unknown Sex and Gender Information Value Date Recorded Sex Assigned at Not on file Legal Sex Female 4:03 PM CDT Gender Identity Not on file Sexual Orientation Not on file documented as of this encounter Plan of Treatment Not on file documented as of this encounter Visit Diagnoses Not on filedocumented in this encounter Care Teams Director Of Loss Prevention Relationship Specialty Start Date End Date Toshia Carrasco MD PCP - General 10/09/15 Toshia Carrasco MD PCP - General 08/09/1010/08 documented as of this encounter
--- OUTSIDE RECORDS SUMMARY | 2024-11-09 23:17 | XMS_ITS | Encounter Summary ---
Author Organization [facility] Address [address] [place] [address]. [place] [address] [place] [address] Care Team Providers Care Diamond Finishing Supervisor Name Role Phone Toshia Carrasco MD Primary Care Provider Unavailable Toshia Carrasco MD Primary Care Provider Unavailable Encounter Details Date Type Department Care Team (Late st Contact Info) Description 06/29/2010 Emergency [facility] [place] [address] Vince Chapa MD [facility] [facility] [place] [address] Social History Tobacco Use Types Packs/Day Years [...] on filedocumented in this encounter Care Teams Diamond Finishing Supervisor Relationship Specialty Start Date End Date Toshia Carrasco MD PCP - General 10/09/15 Toshia Carrasco MD PCP - General 08/09/1010/08 documented as of this encounter
--- OUTSIDE RECORDS SUMMARY | 2024-11-09 23:17 | XMS_ITS | Encounter Summary ---
Author Organization [facility] Address [address] [facility] [place] [address] Care Team Providers Care Weekend Anchor Name Role Phone Tanya Jaen MD Primary Care Provider [phone] Encounter Details Date Type Department Care Team (Late Contact Info) Description 06/29/2018 Orders Only [facility] [address] [place] [address] Arabella Bose MD [address] [place] [address] Social History Tobacco Use Types Packs/Day Years [...] CDT Office Visit [facility] - [address], [place] [address] Thalia Dunlap MD [address] [facility] [address] 1 [place] [address] 01/09/2025 2:30 PM CDT Office Visit [facility] - [address], [place] [phone] Matias Lewis III, MD [address] [place] [address] 2[address] [place] [address] 02/25/2025 2:30 PM CDT Office Visit [facility] - Rheumatology [address] [facility], [place] [address] Lonnie Tai MD [address] [facility] [place] [address] documented as of this encounter Procedures Procedure Name Priority Date/Time Associated Diagnosis Comments URINALYSIS MICROSCOPIC ONLY REFLEXED 06/29/2018 9:55 AM CDT URINALYSIS W/MICROSCOPIC REFLEX TO CULTURE 06/29/2018 9:55 AM CDT CULTURE URINE COMPREHENSIVE 06/29/2018 9:55 AM CDT C-REACTIVE PROTEIN 06/29/2018 9: 55 AM CDT ERYTHROCYTE SEDIMENTATION RATE 06/29/2018 9:55 AM CDT CBC W AUTO DIFFERENTIAL 06/29/2018 9:55 AM CDT COMPREHENSIVE METABOLIC PANEL 06/29/2018 9:55 AM CDT documented in this encounter Results * (ABNORMAL) CULTURE URINE COMPREHENSIVE (06/29/2018 9:55 AM CDT) Urine Culture Comprehensive Final report(A) [facility] INSURANCE BILL Result 1 Klebsiella pneumoniae(A) [facility] INSURANCE BILL Comment: 2,000 Colonies/mL Cefazolin <=4 ug/mL Cefazolin with an [...] ?RSLT#3 ?RSLT#4 Amoxicillin/Clavulanic Acid ?S<=2 Ampicillin ? R>=32 Cefepime ? S<=0.12 Ceftriaxone ?S<=0.25 Cefuroxime ? S<=1 Ciprofloxacin ?S<=0.25 Ertapenem ?S<=0.12 Gentamicin ? S<=1 Imipenem ? S<=0.25 Levofloxacin ? S<=0.12 Meropenem ?S<=0.25 Nitrofurantoin ? I =64 Piperacillin/Tazobactam ?S<=4 Tetracycline ? S<=1 Tobramycin ? S<=1 Trimethoprim/Sulfa ? S<=20 FASTING 06/29/2018 9:55 AM CDT 06/29/2018 Narrative Resulting Agency Comment [facility] [place] [id number] [facility] ??[facility] [phone] Arabella Bose MD LAB - MICROBIOLOG Y ORDERABLES Performing Organization Address City/[facility]/ZIP Co de Phone Number [facility] INSURANCE BILL [address] [place] [address] * URINALYSIS MICROSCOPIC ONLY REFLEXED (06/29/2018 9:55 AM CDT) WBC UA 0-5 0 - [...] the test is not needed Mucus UA NOT NEEDED [facility] INSURANCE BILL Comment:Ancillary determined the test is not needed Bacteria UA None seen None seen/Few [facility] INSURANCE BILL Yeast UA NOT NEEDED [facility] INSURANCE BILL Comment:Ancillary determined the test is not needed Trichomonas UA NOT NEEDED [facility] INSURANCE BILL Comment:Ancillary determined the test is not needed Comment Urine NOT NEEDED [facility] INSURANCE BILL Comment: FASTING Ancillary determined the test is not needed 06/29/2018 9:55 AM CDT 06/29/2018 Narrative Resulting Agency Comment [facility] [address] ??[facility] [phone] Arabella Bose MD LAB - URINALYSIS ORDERABLES Performing Organization Address City/[facility]/ZIP Co de Phone Number [facility] INSURANCE BILL [address] [place] [address] * (ABNORMAL) URINALYSIS W/MICROSCOPIC REFLEX TO CULTURE (06/29/2018 9:55 AM CDT) Specific [place] UA 1.008 1.005 - 1.030 [facility] INSURANCE BILL pH UA 6.5 5.0 - 7.5 [facility] INSURANCE BILL Color UA Yellow Yellow [facility] INSURANCE BILL Appearance Clear Clear [facility] INSURANCE BILL Leukocyte UA 1+(A) Negative [facility] INSURANCE BILL Protein UA Negative [...] has reflexed to a Urine Culture. FASTING 06/29/2018 9:55 AM CDT 06/29/2018 Narrative Resulting Agency Comment [facility] [address] [facility] ??[facility] [phone] Arabella Bose MD LAB - URINALYSIS ORDERABLES Performing Organization Address [facility] Co de Phone Number [facility] INSURANCE BILL [address] [place] [address] * C-REACTIVE PROTEIN (06/29/2018 9:55 AM CDT) Pathologist [facility] C-Reactive Protein 2.9 0.0 - 4.9 mg/L [facility] INSURANCE BILL Comment:FASTING 06/29/2018 9:55 AM CDT 06/29/2018 Narrative Resulting Agency [facility] [address] ??[facility] [phone] Arabella Bose MD LAB - CHEMISTRY O RDERABLES Performing Organization Address City/[facility] Co de Phone Number [facility] INSURANCE BILL [address] [place] [address] * ERYTHROCYTE SEDIMENTATION RATE (06/29/2018 9:55 AM CDT) Erythrocyte Sedimentation Rate Westergren 2 0 - 40 mm/hr [facility] INSURANCE BILL Comment:FASTING 06/29/2018 9:55 AM CDT 06/29/2018 Narrative Resulting Agency Comment [facility] [place] [address] ??[facility] [phone] Arabella Bose MD LAB - HEMATOLOGY ORDERABLES [facility] INSURANCE BILL [address] [place] [address] * (ABNORMAL) COMPREHENSIVE METABOLIC PANEL (06/29/2018 9:55 AM CDT) Glucose 120(H) 65 - 99 mg/dL [facility] INSURANCE BILL BUN 11 8 - 27 mg/dL [facility] INSURANCE BILL Creatinine 1.06(H) 0.57 - 1.00 mg/dL [facility] INSURANCE BILL eGFR by MDRD 55(L) >59 mL/min/1.7 3 [facility] INSURANCE BILL eGFR by MDRD 64 >59 mL/min/1.7 3 [facility] INSURANCE BILL BUN/Creatinine Ratio 10(L) 12 - 28 [facility] INSURANCE BILL Sodium 140 134 - 144 mmol/L [facility] INSURANCE BILL Potassium 3.8 3.5 - 5.2 mmol/L [facility] INSURANCE BILL Chloride 106 96 - 106 mmol/L [facility] INSURANCE BILL CO2 19(L) 20 - 29 mmol/L [facility] INSURANCE BILL Calcium 9.4 8.7 - 10.3 mg/dL [facility] INSURANCE BILL Protein Total 6.1 6.0 - 8.5 g/dL [facility] INSURANCE BILL Albumin 4.2 3.6 - 4.8 g/dL [facility] INSURANCE BILL Globulin Total 1.9 1.5 - 4.5 g/dL [facility] INSURANCE BILL Albumin/Globulin Ratio 2.2 1.2 - 2.2 [facility] INSURANCE BILL Bilirubin Total 0.4 0.0 - 1.2 mg/dL [facility] INSURANCE BILL Alkaline Phosphatase 75 39 - 117 IU/L [facility] INSURANCE BILL AST 21 0 - 40 IU/L [facility] INSURANCE BILL ALT 26 0 - 32 IU/L [facility] INSURANCE BILL Comment:FASTING 06/29/2018 9:55 AM CDT 06/29/2018 Narrative Resulting Agency Comment [facility] [place] [address] [facility] ??[facility] [phone] Arabella Bose MD LAB - CHEMISTRY O RDERABLES [facility] INSURANCE BILL [address] [place] [address] * (ABNORMAL) CBC WITH DIFFERENTIAL (06/29/2018 9:55 AM CDT) WBC 6.9 3.4 - 10.8 x10E3/uL [facility] INSURANCE BILL RBC 3.88 3.77 - 5.28 x10E6/uL [facility] INSURANCE BILL Hemoglobin 11.3 11.1 - 15.9 g/dL [facility] INSURANCE BILL Hematocrit 34.8 34.0 - 46.6 % [facility] INSURANCE BILL MCV 90 79 - 97 fL [facility] INSURANCE BILL MCH 29.1 26.6 - 33.0 pg [facility] INSURANCE BILL MCHC 32.5 31.5 - 35.7 g/dL [facility] INSURANCE BILL RDW 16.0(H) 12.3 - 15.4 % [facility] INSURANCE BILL Platelet Count 277 150 - 379 x10E3/uL [facility] INSURANCE BILL Granulocytes % 64 Not Estab. % [facility] INSURANCE BILL Lymphocytes % 25 Not Estab. % [facility] INSURANCE BILL Monocytes % 7 Not Estab. % [facility] INSURANCE BILL Eosinophils % 3 Not Estab. % [facility] INSURANCE BILL Basophils % 1 Not Estab. % [facility] INSURANCE BILL Immature Cells NOT NEEDED [facility] INSURANCE BILL Comment:Ancillary determined the test is not needed Granulocytes Absolute 4.4 1.4 - 7.0 x10E3/uL [facility] INSURANCE BILL [...] Ancillary determined the test is not needed 06/29/2018 9:55 AM CDT 06/29/2018 Narrative Resulting Agency Comment [facility] [place] [address] [facility] ??[facility] [phone] Arabella Bose MD LAB - HEMATOLOGY ORDERABLES [facility] INSURANCE BILL [address] [place] [address] documented in this encounter Visit Diagnoses Not on filedocumented in this encounter Care Teams Weekend Anchor Relationship Specialty Start Date End Date Tanya Jane MD [address] [place] [address] [place] [address] PCP - General 01/05/18 07/09/24 documented as of this encounter
--- OUTSIDE RECORDS SUMMARY | 2024-11-09 23:17 | XMS_ITS | Encounter Summary ---
Author Organization [facility] Address [address] [place] [address] Care Team Providers Care Pelletising Extruder Operator Name Role Phone Unavailable Primary Care Provider Unavailabl e Encounter Details Date Type Department Care Team (Latest Contact Info) Description 2016 Hospital Outpatient Visit [facility] [address] [place] [address] Arabella Bose MD [address] [place] [address] Discharge Disposition: Home or Self Care Social History Tobacco Use Types Packs/Day Years Used Date Smoking Tobacco: Never Assessed Sex and Gender Information Value Date Recorded Sex Assigned at Not on file Gender Identity Not on file Sexual Orientation Not on file documented as of this encounter Plan of Treatment Upcoming Encounters Date Type Department Care Team (Late st Contact Info) Description 01/09/2025 2:00 PM CDT [facility] [address] [address] Thalia Dunlap MD [address] [place] [address] [address] [place] [address] 01/09/2025 2:30 PM CDT Office Visit [facility] - [address] [address] Matias Lewis III, MD [address] [place] [address] [address] [address] 02/25/2025 2:30 PM CDT Office Visit [facility] - Rheumatology [address] [facility], [place] [address] Lonnie Tai MD [address] [facility] [place] [address] documented as of this encounter Visit Diagnoses Not on filedocumented in this encounter
--- OUTSIDE RECORDS SUMMARY | 2024-11-09 23:17 | XMS_ITS | Encounter Summary ---
Author Organization [facility] Address [address] [facility] [place] [address] Care Team Providers Care Mr Teacher Name Role Phone Tanya Jane MD Primary Care Provider [phone] Encounter Details Date Type Department Care Team (Latest Contact Info) Description 01/05/2018 Orders Only [facility] [address] [place] [address] Arabella Bose MD [address] [place] [address] 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 arthritis (HCC) ; Arthralgia of multiple joints; group home current use of 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; Encounter for [...] GI [address] [facility], [place] [address] Thalia Dunlap MD [address] [facility] [address] [place] [address] [place] [address] 01/09/2025 2:30 PM CDT Office Visit [facility] - GI [address] [facility], [place] [address] Matias Lewis III, MD [address] [facility] 2L [place] [address] 02/25/2025 2:30 PM CDT Office Visit [facility] - Rheumatology [address] [facility], [place] [address] Lonnie Tai MD [address] [facility] 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 [address] PCP - General 01/05/18 07/09/24 documented as of this encounter
--- OUTSIDE RECORDS SUMMARY | 2024-11-09 23:17 | XMS_ITS | Encounter Summary ---
Author Organization [facility] Address [address] [place] [address] Care Team Providers Care After School Coordinator Name Role Phone Tanya Jane MD Primary Care Provider [phone] Reason for Visit * Reason Onset Date Comments MEDICATION REFILL 05/11/2018 Encounter Details Date Type Department Care Team (Late Contact Info) Description 05/11/2018 Refill [facility] [address] [place] [address] Tanya Blue DO [address] [place] [phone] MEDICATION REFILL Social History Tobacco Use Types [...] Telephone Encounter - Tanya Blue DO - 05/11/2018 7:15 PM CDT Arava refilled documented in this encounter Plan of Treatment Upcoming Encounters Date Type Department Care Team (Late Contact Info) Description 01/09/2025 2:00 PM CDT Office Visit [facility] - GI 12[address] [facility], [place] [phone] Thalia Dunlap MD [address] [facility] [address] [place] [address] 01/09/2025 2:30 PM CDT Office Visit [facility] - GI [address] [place] [address], [place] [address] Matias Lewis III, MD [address] [facility] 2[address] [place] [address] 02/25/2025 2:30 PM CDT Office Visit [facility] - Rheumatology [address] [place] [address], [place] [address] Lonnie Tai MD [address] [facility] [place] [address] documented as of this encounter Visit Diagnoses Not on filedocumented in this encounter Care Teams After School Coordinator Relationship Specialty Start Date End Date Tanya Jane MD [address] [place] [address] [place] [address] PCP - General 01/05/18 07/09/24 documented as of this encounter
--- OUTSIDE RECORDS SUMMARY | 2024-11-09 23:17 | XMS_ITS | Encounter Summary ---
Author Organization [facility] Address [address] [place] [address] Care Team Providers Care Skin Care Specialist Name Role Phone Tanya Jane MD Primary Care Provider [phone] Reason for Visit * Reason Comments Follow-up RA Encounter Details Date Type Department Care Team (Late st Contact Info) Description 07/04/2018 11:00 AM CDT Office Visit [facility] [address] [place] [address] Tanya Blue DO [address] [place] [id number] Rheumatoid arthritis with positive rheumatoid factor, involving unspecified site (HCC) (Primary Dx); Encounter for therapeutic drug level monitoring; Need [...] Sign Reading Time Taken Comments Blood Pressure 150/88 07/04/2018 11:35 AM CDT Pulse 76 07/04/2018 11:06 AM CDT Temperature 36.3 ??C (97.4 ??F) 07/04/2018 11:06 AM C DT Respiratory Rate - - Oxygen Saturation - - Inhaled Oxygen Concentration - - Weight 75.8 kg (167 lb) 07/04/2018 11:06 AM CDT Height 172.7 cm (5' 8 ) 07/04/2018 11:06 AM CDT Body Mass Index 25.39 07/04/2018 11:06 AM CDT documented in this encounter Patient Instructions * Patient Instructions* Tanya Blue DO - 07/04/2018 11:51 AM CDT 1. Get labs every 8-10 weeks. 2. Follow up in 4-6 months. If you need to change or cancel your Rheumatology appointment - At the Doctor's Office Building at [address], [address], call [phone] If you need a refill request, have your pharmacy fax a request to [phone] If you need to leave a message for Dr. Blue, you can send her an electronic message via [employer] voicemail at [phone]. Her office FAX number is [phone]. For after hours emergency only, you can call the [facility] refinery operator gas plant at [phone] and ask for the Editor At Large stamps or coins salesperson to be paged. documented in this encounter Progress Notes * Arabella Bose MD - 08/13/2018 6:19 PM CDT Rheumatology Attending Physician Supervisory Note I personally interviewed and examined the patient and agree with the doctor above. Interim history: since last visit in December, has been doing fairly well, today notes stiffness in the right 3rd finger, with swelling sometimes. Denies trouble with ADLs. Blood pressure 150/88, pulse 76, temperature 97.4 ??F (36.3 ??C), temperature source Oral, height 5' 8 (1.727 m), weight 167 lb (75.8 kg). Exam: gen pleasant, AOX3 Skin: no rash ENT: no ulcers, +poor dentition CV: RRR NS1 and S2 Lungs: CTAB MS: no active synovitis, decreased flexion bilateral wrists, hallux valgus deformity of great toes,small cystic swelling on plantar surface of right MTP (non-tender) Labs noted in Dr Blue's note: 07/10 ESR 2, creat 1.06, nl LFTs Assessment/Plan: 1. Rheumatoid Arthritis, seropositive, erosive-currently stable on Arava, but some continued arthralgia, stiffness, with no significant change on last Xrays in December, we may consider anti TNF in the future (pt not a candidate for MTX due to ETOH use), she is to continue lab monitoring every 8 weeks. Again encouraged regular stretching, light exercise. 2. Osteopenia-repeat DXA in 02/08 Arabella Bose MD * Tanya Blue DO - 07/04/2018 10:51 AM CDT [facility] Followup Clinic Visit PCP: Tanya Jane MD Diagnosis/Problem(s): 1. Rheumatoid arthritis with positive rheumatoid factor, involving unspecified site 2. Encounter for therapeutic drug level monitoring 3. Need for influenza vaccination 4. Arthralgia of multiple joints Interval History: Kianna Hill is a 67 y.o. White/ female who presents for follow up of seropositive rheumatoid arthritis (+RF, +CCP Ab) diagnosed around 2013 with known erosive disease who presents for follow up. She was last seen in December 2017. She reports that she has been feeling well since she was last seen. She spent the last month in [facility] with her brother and she was able to do everything she wanted to on vacation and was not limited by her joints. Her hands are stiff, mostly in the morning and it is still just the right 3rd finger that gives her the most trouble. She notes occasional swelling, morning stiffness and occasional tenderness, although it does not bother her too significantly. She mostly walks for exercise and enjoys doing so. She continues to have dry mouth and drinks waterfairly regularly. She thinks it has been slightly worse lately due to her diet being off and blood sugars being slightly higher while [place] was in [place]. ROS: General: -fatigue, -fever, -wt loss with poor appetite, -night sweats, -daily functioning limited HEENT: -dry eyes, +dry mouth, -vision changes, -eye redness, -eye pain, -oral ulcers CV: -chest pain, -orthopnea, -palpitations, - LE edema Resp: -cough, -shortness of breath, -pleuritic pain GI: -dysphagia, -reflux, -abd pain, -constipation, -diarrhea, -nausea, - vomiting, -blood in stools : -urine changes, -dysuria, -hematuria MSK: +arthralgia, -myalgia, -muscle weakness, +swelling, -erythema, -warmth, +AM stiffness, -back pain Skin: -rash, -lesions, -ulcers, -hair loss, -Raynauds, -acrocyanosis, -photosensitivity Neuro: -BAPTISTE, -paresthesias Psych: Mood is generally good, -depression/anxiety ROS otherwise negative No past medical history on file. Social History Substance Use Topics ??? Smoking status: Former Smoker ??? Smokeless tobacco: Never Used ??? Alcohol use 0.6 oz/week Review of No family history on file. Current Outpatient Prescriptions Medication Sig Dispense Refill ??? losartan (COZAAR) 100 MG tablet Take 100 mg by mouth once daily 4 ??? ONETOUCH VERIO test strip TEST DAILY DIRECTED 4 ??? GLIPIZIDE XL 10 MG tablet Take 10 mg by mouth 2 times daily 3 ??? leflunomide (ARAVA) 20 MG tablet Take 1 tablet by mouth once daily 90 tablet 1 ??? meloxicam (MOBIC) 7.5 MG tablet Take 7.5 mg by mouth DAILY. 90 tablet 0 ??? metFORMIN (GLUCOPHAGE) 1000 MG tablet Take 1 tablet by mouth BID. 2 ??? [place]-3 Fatty Acids (FISH OIL) 1000 MG capsule Take 1,200 mg by mouth BID. ??? hydroCHLOROthiazide (MICROZIDE) 12.5 MG capsule Take 12.5 mg by mouth DAILY. ??? fenofibrate (LOFIBRA) 160 MG tablet Take 160 mg by mouth. ??? simvastatin (ZOCOR) 20 MG tablet Take 20 mg by mouth. ??? Ufazgrw-Ytkvozppz-Wytoepn D (CALCIUM 1200+D3) 600-40-500 MG-MG-UNIT TB24 Take 1 tablet by mouth. ??? levothyroxine (SYNTHROID) 75 MCG tablet Take 75 mcg by mouth DAILY. ??? losartan (COZAAR) 50 MG tablet Take 50 mg by mouth DAILY. (Patient not taking: Reported on 07/04/2018) No current facility-administered medications for this visit. Codeine Physical Exam: BP 150/88 Pulse 76 Temp 97.4 ??F (36.3 ??C) (Oral) Ht 5' 8 (1.727 m) Wt 167 lb (75.8 kg) BMI 25.39kg/m2 General: normal, appears stated age Skin: Skin color, texture, turgor normal. No rashes or lesions HEENT: Normocephalic, without obvious abnormality, atraumatic conjunctivae/corneas clear. EOMI, no oral or nasal ulcers, moist mucus membranes, supple neck Lymphatic: No cervical, supraclavicular, axillary, or inguinal adenopathy Back: symmetric, no curvature Chest/Lungs: clear to auscultation bilaterally, normal respiratory effort Heart: RRR, normal S1 and S2, no murmur, no rub Abdomen: soft, non-tender. Bowel sounds normal. No masses, no organomegaly Neurologic: Grossly normal cranial nerves Musculoskeletal Exam: Wrists S0T0 b/l; Decreased flexion in bilateral wrist to 45-50 deg with good extension MCP S0T0; Right 3rd PIP SfT0 others S0T0 HN/BN bilaterally along with CMC squaring Knees with mild crepitus S0T0 Ankle crepitus but normal ROM Pes planus Valgus deformity / bony enlargement of 1st MTP bilaterally, 2 MTP b/l SfT1 Cyst on plantar surface of right 1st MTP Labs: Reviewed, including those as noted below 06/29/18 CMP: Cr 1.06, ALT 26, AST [...] tissue abnormality. No radiopaque foreign bodies. DEXA ([facility]) 02/07/17: L spine BMD 0.977; T-score -0.6 L Femoral neck BMD: 0.864; T-score +0.5 R Femoral neck BMD0.787; T-score -0.6 ?? XR Foot ([facility]) 09/12/16 Right: Hallux Valgus and [...] both hands. Assessment: Kianna Hill is a 67 y.o. White/ female who presents for follow up of: 1. Seropositive erosive RA: High titer RF, CCP. Most symptomatic in hands and knees. Initially withevidence of synovitis in MTP's, MCP's, and ankles. She has evidence of erosions on xrays at ulnar styloid but deferred early therapy previously due to family issues. She was started on LEF 20 mg daily (01/2017) - patient concerned regarding EtOH use and MTX. Her labs show improvement in inflammatorymarkers but will need to watch closely give high titer Ab and positive CCP. Given her increased medication and issues with cross-reactivity, could consider therapy escalation with Anti-TNF in uncontrolled disease/radiographic progression or HCQ. Will repeat xrays next year to monitor for progression 2. Osteopenia - DEXA completed 01/2017, stable continue PO calcium and vitamin D ?? Rapid 3 (01/2017): 2.5 Moderate Severity [...] weeks. 4. Return to clinic in about 3-4 mo. 5. If condition worsens, will consider addition of biologic therapy. ?? This patient was seen and the plan of care was discussed with attending physician Dr. Bose. Tanya Blue, DO Rheumatology Fellow [facility] Pager: [phone] The following were ordered during this visit: Orders Placed This Encounter ??? FLU VACCINE, HIGH-DOSE, 65YO AND OVER ??? CBC WITH DIFFERENTIAL Standing Status: Standing Number of Occurrences: 18 Standing Expiration Date: 07/22/2019 ??? COMPREHENSIVE METABOLIC PANEL Standing Status: Standing Number of Occurrences: 18 Standing Expiration Date: 07/22/2019 ??? C-REACTIVE PROTEIN Standing Status: Standing Number of Occurrences: 18 Standing Expiration Date: 07/22/2019 ??? ERYTHROCYTE SEDIMENTATION RATE Standing Status: Standing Number of Occurrences: 18 Standing Expiration Date: 07/22/2019 ??? URINALYSIS W/MICROSCOPIC REFLEX TO CULTURE Standing Status: Standing Number of Occurrences: 18 Standing Expiration Date: 07/22/2019 ??? leflunomide (ARAVA) 20 MG tablet Sig: Take 1 tablet by mouth once daily Dispense: 90 tablet Refill: 1 documented in this encounter Plan of Treatment Upcoming Encounters Date Type Department Care Team (Late st Contact Info) Description 01/09/2025 2:00 PM CDT Office Visit [facility] [address] [facility] [place] [address] Thalia Dunlap MD [address] [place] [address] [address] [place] [address] 01/09/2025 2:30 PM CDT Office Visit [facility] [address] [facility] [place] [phone] Matias Lewis III, MD [address] [facility] [address] [place] [phone] 02/25/2025 2:30 PM CDT [facility] [address] [facility] [place] [address] Lonnie Tai MD [address] [facility] [place], [place] [phone] documented as of this encounter Procedures Procedure Name Priority Date/Time Associated Diagnosis Comments URINALYSIS MICROSCOPIC ONLY REFLEXED Routine 11/06/2018 9:47 AM ITEM PROCESSOR Rheumatoid arthritis with positive rheumatoid factor, involving unspecified site (HCC) Encounter for therapeutic drug level monitoring Need for influenza vaccination Arthralgia of multiple joints URINALYSIS W/MICROSCOPIC REFLEX TO CULTURE Routine 11/06/2018 9:47 AM ITEM PROCESSOR Rheumatoid arthritis with positive rheumatoid factor, involving unspecified site (HCC) Encounter for therapeutic drug level monitoring Need for influenza vaccination Arthralgia of multiple joints C-REACTIVE PROTEIN Routine 11/06/2018 9: 47 AM ITEM PROCESSOR Rheumatoid arthritis with positive rheumatoid factor, involving unspecified site (HCC) Encounter for therapeutic drug level monitoring Need for influenza vaccination Arthralgia of multiple joints ERYTHROCYTE SEDIMENTATION RATE Routine 11/06/2018 9:47 AM ITEM PROCESSOR Rheumatoid arthritis with positive rheumatoid factor, involving unspecified site (HCC) Encounter for therapeutic drug level monitoring Need for influenza vaccination Arthralgia of multiple joints CBC W AUTO DIFFERENTIAL Routine 11/06/2018 9:47 AM ITEM PROCESSOR Rheumatoid arthritis with positive rheumatoid factor, involving unspecified site (HCC) Encounter for therapeutic drug level monitoring Need for influenza vaccination Arthralgia of multiple joints COMPREHENSIVE METABOLIC PANEL Routine 11/06/2018 9:47 AM ITEM PROCESSOR Rheumatoid arthritis with positive rheumatoid factor, involving unspecified site (HCC) Encounter for therapeutic drug level monitoring Need for influenza vaccination Arthralgia of multiple joints documented in this encounter Results * URINALYSIS MICROSCOPIC ONLY REFLEXED (11/06/2018 9:47 AM ITEM PROCESSOR) WBC UA 0-5 0 - 5 /hpf [facility] INSURANCE BILL RBC UA None seen 0 - 2 /hpf [facility] INSURANCE BILL Epithelial Cells (non renal) None seen 0 - 10 /hpf [facility] INSURANCE BILL [...] Ancillary determined the test is not needed 11/06/2018 9:47 AM ITEM PROCESSOR 11/06/2018 Narrative Resulting Agency Comment [facility] [address] [facility] ??[facility] [phone] Tanya Blue DO LAB - URINALYSIS ORD ERABLES [facility] INSURANCE BILL [address] [place] [address] * URINALYSIS W/MICROSCOPIC REFLEX TO CULTURE (11/06/2018 9:47 AM ITEM PROCESSOR) Specific Scipio UA 1.006 1.005 - 1.030 [facility] INSURANCE [...] OBTAINED BY CLEAN CATCH PROCEDURE / Unknown 11/06/2018 9:47 AM ITEM PROCESSOR 11/06/2018 Narrative Resulting Agency Comment [address] ??[facility] [phone] Tanya Blue DO LAB - URINALYSIS ORD ERABLES Performing Organization Address City/[facility]/ZIP Co de Phone Number [facility] INSURANCE BILL [address] [place] [address] * ERYTHROCYTE SEDIMENTATION RATE (11/06/2018 9:47 AM ITEM PROCESSOR) Erythrocyte Sedimentation Rate Westergren 2 0 - 40 mm/hr [facility] INSURANCE BILL Comment:FASTING Blood BLOOD SPECIMEN / Unknown 11/06/2018 9:47 AM ITEM PROCESSOR 11/06/2018 Narrative Resulting Agency Comment [address] ??[facility] [phone] Tanya Blue DO LAB - HEMATOLOGY ORD ERABLES [facility] INSURANCE BILL [address] [place] [address] * C-REACTIVE PROTEIN (11/06/2018 9:47 AM ITEM PROCESSOR) C-Reactive Protein 2.8 0.0 - 4.9 mg/L [facility] INSURANCE BILL Comment:FASTING Blood BLOOD SPECIMEN / Unknown 11/06/2018 9:47 AM ITEM PROCESSOR 11/06/2018 Narrative Resulting Agency Comment [facility] [address] ??[facility] [phone] Tanya Blue DO LAB - CHEMISTRY ROBERT MAY [facility] INSURANCE BILL [address] [place] [address] * (ABNORMAL) COMPREHENSIVE METABOLIC PANEL (11/06/2018 9:47 AM ITEM PROCESSOR) Glucose 210(H) 65 - 99 mg/dL [facility] INSURANCE BILL BUN 10 8 - 27 mg/dL [facility] INSURANCE BILL Creatinine 0.97 0.57 - 1.00 mg/dL [facility] INSURANCE BILL eGFR by MDRD 61 >59 mL/min/1.7 3 [facility] INSURANCE BILL eGFR by MDRD 70 >59 mL/min/1.7 3 [facility] INSURANCE BILL BUN/Creatinine Ratio 10(L) 12 - 28 [facility] INSURANCE BILL Sodium 140 134 - 144 mmol/L [facility] INSURANCE BILL Potassium 4.5 3.5 - 5.2 mmol/L [facility] INSURANCE BILL Chloride 100 96 - 106 mmol/L [facility] INSURANCE BILL [...] 1.2 mg/dL [facility] INSURANCE BILL Alkaline Phosphatase 95 39 - 117 IU/L [facility] INSURANCE BILL AST 26 0 - 40 IU/L [facility] INSURANCE BILL ALT 38(H) 0 - 32 IU/L [facility] INSURANCE BILL Comment:FASTING Blood BLOOD SPECIMEN / Unknown 11/06/2018 9:47 AM ITEM PROCESSOR 11/06/2018 Narrative Resulting Agency Comment [facility] [address] ??[facility] [phone] Tanya Zackery Mirza DEE LAB - CHEMISTRY ROBERT MAY [facility] INSURANCE BILL [address] [place] [address] * (ABNORMAL) CBC WITH DIFFERENTIAL (11/06/2018 9:47 AM ITEM PROCESSOR) WBC 8.2 3.4 - 10.8 x10E3/uL [facility] INSURANCE BILL RBC 4.24 3.77 - 5.28 x10E6/uL [facility] INSURANCE BILL Hemoglobin 12.4 11.1 - 15.9 g/dL [facility] INSURANCE BILL Hematocrit 36.8 34.0 - 46.6 % [facility] INSURANCE BILL MCV 87 79 - 97 fL [facility] INSURANCE BILL MCH 29.2 26.6 - 33.0 pg [facility] INSURANCE BILL MCHC 33.7 31.5 - 35.7 g/dL [facility] INSURANCE BILL RDW 16.2(H) 12.3 - 15.4 % [facility] INSURANCE BILL Platelet Count 274 150 - 379 x10E3/uL [facility] INSURANCE BILL Granulocytes % 70 Not Estab. % [facility] INSURANCE BILL Lymphocytes % 21 Not Estab. % [facility] INSURANCE BILL Monocytes % 6 Not Estab. % [facility] INSURANCE BILL Eosinophils % 2 Not Estab. % [facility] INSURANCE BILL Basophils % 1 Not Estab. % [facility] INSURANCE BILL Immature Cells NOT NEEDED [facility] INSURANCE BILL Comment:Ancillary determined the test is not needed Granulocytes Absolute 5.6 1.4 - 7.0 x10E3/uL [...] not needed Blood BLOOD SPECIMEN / Unknown 11/06/2018 9:47 AM ITEM PROCESSOR 11/06/2018 Narrative Resulting Agency Comment [facility] [address] ??[facility] [phone] Tanya Blue DO LAB - HEMATOLOGY ORD ERABLES [facility] INSURANCE BILL [address] [place] [address] documented in this encounter Visit Diagnoses Diagnosis Rheumatoid arthritis with positive rheumatoid factor, involving unspecified site (HCC)- Primary Encounter for therapeutic drug level monitoring Encounter for therapeutic drug monitoring Need for influenza vaccination Need for prophylactic vaccination and inoculation against influenza Arthralgia of multiple joints Pain in joint, multiple sites documented in this encounter Care Teams Skin Care Specialist Relationship Specialty Start Date End Date Tanya Jane MD [address] [place] [address] [place] [address] PCP - General 01/05/18 07/09/24 documented as of this encounter
--- OUTSIDE RECORDS SUMMARY | 2024-11-09 23:17 | XMS_ITS | Encounter Summary ---
Author Organization [facility] Address [address] [place] [address]. [place] [address] [place] [address] Care Team Providers Care Blasting Worker Name Role Phone Md Generic Conversion Primary Care Provider Unavailable Encounter Details Date Type Department Care Team (Late st Contact Info) Description 10/09/2015 Abstract [facility] [place] [address] Emir Gomez MD [address] [facility] [address] [place], [place] [address] Social History Tobacco Use Types Packs/Day Years Used Date Smoking Tobacco: Never Assessed Comments Unknown Sex and Gender Information Value Date Recorded Sex Assigned at Not on file Legal Sex Female 4:03 PM CDT Gender Identity Not on file Sexual Orientation Not on file documented as of this encounter Plan of Treatment Not on file documented as of this encounter Procedures Procedure Name Priority Date/Time Associated Diagnosis Comments POCT GLUCOSE - EMANUEL DOCKED DEVICE Routine 10/09/2015 8:12 AM REPAIR SERVICE CLERK documented in this encounter Results * (ABNORMAL) POCT glucose (10/09/2015 8:12 AM REPAIR SERVICE CLERK) GLUCOSE POC 168(H) 70 - 99 mg/dL 10/09/2015 8:28 AM REPAIR SERVICE CLERK [facility] LAB ORDERS INTERFACE 10/09/2015 8:12 AM REPAIR SERVICE CLERK 10/09/2015 8:28 AM REPAIR SERVICE CLERK us Generic Conversion Md MEMBRENO POCT ORDERABLES - DEVIC E Final Result [facility] [place] [address], [place] documented in this encounter Visit Diagnoses Diagnosis Encounter for screening for malignant neoplasm of colon Special screening for malignant neoplasms, colon documented in this encounter Care Teams Blasting Worker Relationship Specialty Start Date End Date Toshia Membreno Conversion, PCP - General 10/09/15 documented as of this encounter
--- OUTSIDE RECORDS SUMMARY | 2024-11-09 23:17 | XMS_ITS | Encounter Summary ---
Author Organization [facility] Address [address] [place] [address]. [place], [place] [address] [place] [address] Care Team Providers Care Rag Cutting Machine Feeder Name Role Phone Toshia Carrasco MD Primary Care Provider Unavailable Toshia Carrasco MD Primary Care Provider Unavailable Encounter Details Date Type Department Care Team (Late st Contact Info) Description 01/26/1999 Abstract [facility] CONVERSION [id number] [place] [phone] Toshia Carrasco MD Social History Tobacco Use [...] on filedocumented in this encounter Care Teams Rag Cutting Machine Feeder Relationship Specialty Start Date End Date Toshia Carrasco MD PCP - General 10/09/15 Toshia Carrasco MD PCP - General 08/09/1010/08 documented as of this encounter
--- OUTSIDE RECORDS SUMMARY | 2024-11-09 23:17 | XMS_ITS | Encounter Summary ---
Author Organization [facility] Address [address] [place] [address]. [place], [place] [address] [place] [address] Care Team Providers Care Disability Program Navigator Name Role Phone Toshia Carrasco MD Primary Care Provider Unavailable Toshia Carrasco MD Primary Care Provider Unavailable Encounter Details Date Type Department Care Team (Late st Contact Info) Description 11/14/1995 Abstract [facility] CONVERSION [id number] [place] [phone] Toshia Carrasco MD Social History Tobacco Use [...] on filedocumented in this encounter Care Teams Disability Program Navigator Relationship Specialty Start Date End Date Toshia Carrasco MD PCP - General 10/09/15 Toshia Carrasco MD PCP - General 08/09/1010/08 documented as of this encounter
--- OUTSIDE RECORDS SUMMARY | 2024-11-09 23:17 | XMS_ITS | Clinical Summary ---
Author Organization [facility] Address [address] [place] [address]. [place], [place] [address] [place] [address] Care Team Providers Care Street Light Repairer Name Role Phone Unavailable Primary Care Provider Unavailabl e Social History Tobacco Use Types Packs/Day Years Used Date Smoking Tobacco: Never Assessed Comments Unknown Sex and Gender Information Value Date Recorded Sex Assigned at Not on file Legal Sex Female 4:03 PM CDT Gender Identity Not on file Sexual Orientation Not on file Plan of Treatment Health Maintenance Due Date Last Done Comments Colorectal Cancer Screening Colonoscopy (10 Years) 1952 Hepatitis C 1970 DTaP, Tdap and Td Vaccines ( 1 - Tdap) 1971 Mammogram Screening 1992 Zoster Vaccines (1 of 2) 2002 Dexa Scan (General) 2017 Pneumococcal Vaccine: 65+ Ye ars (1 of 1 - PCV) 2017 COVID-19 Vaccine (2023-2 5 season) 2024 Influenza Adult (#1) 2024 RSV Immunization or 60+ Years (1 - 1-dose 75+ series) 2027 Meningococcal Vaccine Aged Out No shavon micah eligible based on patient's age to complete this topic RSV Immunizations Under 20 Months Aged Out No longer eligible based on patient's age to complete this topic
--- OUTSIDE RECORDS SUMMARY | 2024-11-09 23:17 | XMS_ITS | Encounter Summary ---
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 - Rheumatology [address] [facility], [place] [address] Lonnie Tai MD [address] [facility] [place] [address] documented as of this encounter Procedures Procedure Name Priority Date/Time Associated Diagnosis Comments URINALYSIS MICROSCOPIC ONLY REFLEXED Routine 03/12/2018 9:56 AM CDT 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 arthritis (HCC) Arthralgia of multiple joints senior living current use of 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 Encounter for therapeutic drug monitoring URINALYSIS W/MICROSCOPIC REFLEX TO CULTURE Routine 03/12/2018 9:56 AM CDT 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 arthritis (HCC) Arthralgia of multiple joints senior living current use of 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 Encounter for therapeutic drug monitoring CULTURE URINE COMPREHENSIVE Routine 03/12/2018 9:56 AM CDT 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 arthritis (HCC) 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 Encounter for therapeutic drug monitoring C-REACTIVE PROTEIN Routine 03/12/2018 9: 56 AM CDT 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 arthritis (HCC) Arthralgia of multiple joints senior living current use of 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 Encounter for therapeutic drug monitoring ERYTHROCYTE SEDIMENTATION RATE Routine 03/12/2018 9:56 AM CDT 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 arthritis (HCC) 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 Encounter for therapeutic drug monitoring CBC W AUTO DIFFERENTIAL Routine 03/12/2018 9:56 AM CDT 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 arthritis (HCC) Arthralgia of multiple joints senior living current use of 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 Encounter for therapeutic drug monitoring COMPREHENSIVE METABOLIC PANEL Routine 03/12/2018 9:56 AM CDT 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 S = Susceptible; I = Intermediate; R = Resistant ? P = Positive; N = Negative ?MICS are expressed in micrograms per mL ?? Antibiotic ? RSLT#1 ?RSLT#2 ?RSLT#3 ?RSLT#4 Amoxicillin/Clavulanic Acid ?S<=2 ?S<=2 Ampicillin ? R =R ?S<=2 Cefepime ? S<=1 ?S<=1 Ceftriaxone ?S<=1 ?S<=1 Cefuroxime ? S<=1 ?S =4 Cephalothin ?S<=2 ?S =4 Ciprofloxacin ?S<=0.25 ?? S<=0.25 Ertapenem ?S<=0.5 ?S<=0.5 Gentamicin ? S<=1 ?S<=1 Imipenem ? S<=1 ?S<=1 Levofloxacin ? S<=0.12 ?? S<=0.12 Nitrofurantoin ? I =64 ? S<=16 Piperacillin ? S =8 ?S<=4 Tetracycline ? S<=1 ?R>=16 Tobramycin ? S<=1 ?S<=1 Trimethoprim/Sulfa ? S<=20 ? S<=20 FASTING 03/12/2018 9:56 AM CDT 03/12/2018 Narrative Resulting Agency Comment [facility] [address] [facility] [phone] Arabella Bose MD LAB - MICROBIOLOG Y ORDERABLES [facility] INSURANCE BILL [address] [place] [address] * (ABNORMAL) URINALYSIS MICROSCOPIC ONLY REFLEXED (03/12/2018 9:56 AM CDT) WBC UA 0-5 0 - [...] Ancillary determined the test is not needed 03/12/2018 9:56 AM CDT 03/12/2018 Narrative Resulting Agency Comment [facility] [place] [id number] [facility] ??[facility] [phone] Arabella Bose MD LAB - URINALYSIS ORDERABLES [facility] INSURANCE BILL [address] [place] [address] * (ABNORMAL) URINALYSIS W/MICROSCOPIC REFLEX TO CULTURE (03/12/2018 9:56 AM CDT) Specific [place] UA 1.012 1.005 - 1.030 [facility] INSURANCE BILL pH UA 5.5 5.0 - 7.5 [facility] INSURANCE BILL Color [...] OBTAINED BY CLEAN CATCH PROCEDURE / Unknown 03/12/2018 9:56 AM CDT 03/12/2018 Narrative Resulting Agency Comment [facility] [address] ??[facility] [phone] Arabella Bose MD LAB - URINALYSIS ORDERABLES [facility] INSURANCE BILL [address] [place] [address] * (ABNORMAL) CBC W AUTO DIFFERENTIAL (03/12/2018 9:56 AM CDT) WBC 8.7 3.4 - 10.8 x10E3/uL [facility] INSURANCE BILL RBC 4.22 3.77 - 5.28 x10E6/uL [facility] INSURANCE BILL Hemoglobin 12.2 11.1 - 15.9 g/dL [facility] INSURANCE BILL Hematocrit 39.0 34.0 - 46.6 % [facility] INSURANCE BILL MCV 92 79 - 97 fL [facility] INSURANCE BILL MCH 28.9 26.6 - 33.0 pg [facility] INSURANCE BILL MCHC 31.3(L) 31.5 - 35.7 g/dL [facility] INSURANCE BILL RDW 16.1(H) 12.3 - 15.4 % [facility] INSURANCE BILL Platelet Count 292 150 - 379 x10E3/uL [facility] INSURANCE BILL Granulocytes % 65 Not Estab. % [facility] INSURANCE BILL Lymphocytes % 21 Not Estab. % [facility] INSURANCE BILL Monocytes % 9 Not Estab. % [facility] INSURANCE BILL Eosinophils % 3 Not Estab. % [facility] INSURANCE BILL Basophils % 2 Not Estab. % [facility] INSURANCE BILL Immature Cells NOT NEEDED [facility] INSURANCE BILL Comment:Ancillary determined the test is not needed Granulocytes Absolute 5.7 1.4 - 7.0 x10E3/uL [facility] INSURANCE BILL Lymphocytes Absolute 1.8 0.7 - 3.1 x10E3/uL [facility] INSURANCE BILL Monocytes Absolute 0.8 0.1 - 0.9 x10E3/uL [facility] INSURANCE BILL Eosinophils Absolute 0.3 0.0 - 0.4 x10E3/uL [facility] INSURANCE BILL Basophils Absolute 0.2 0.0 - 0.2 x10E3/uL [facility] INSURANCE BILL Immature Granulocytes 0 Not Estab. % [facility] INSURANCE BILL Immature Granulocytes Absolute 0.0 0.0 - 0.1 x10E3/uL [facility] INSURANCE BILL nRBC NOT NEEDED [facility] INSURANCE BILL Comment:Ancillary determined the test is not needed Comment Hematology NOT NEEDED [facility] INSURANCE BILL Comment: FASTING Ancillary determined the test is not needed Blood BLOOD SPECIMEN / Unknown 03/12/2018 9:56 AM CDT 03/12/2018 Narrative Resulting Agency Comment [facility] [address] [place] [address] ??[facility] [phone] Arabella Bose MD LAB - HEMATOLOGY ORDERABLES [facility] INSURANCE BILL [address] [place] [address] * (ABNORMAL) COMPREHENSIVE METABOLIC PANEL (03/12/2018 9:56 AM CDT) Glucose 215(H) 65 - 99 mg/dL [facility] INSURANCE BILL BUN 14 8 - 27 mg/dL [facility] INSURANCE BILL Creatinine 0.97 0.57 - 1.00 mg/dL [facility] INSURANCE BILL eGFR by MDRD 61 >59 mL/min/1.7 3 [facility] INSURANCE BILL eGFR by MDRD 71 >59 mL/min/1.7 3 [facility] INSURANCE BILL BUN/Creatinine Ratio 14 12 - 28 [facility] INSURANCE BILL Sodium 139 134 - 144 mmol/L [facility] INSURANCE BILL Potassium 4.4 3.5 - 5.2 mmol/L [facility] INSURANCE BILL Chloride 99 96 - 106 mmol/L [facility] INSURANCE BILL CO2 21 18 - 29 mmol/L [facility] INSURANCE BILL Calcium [...] 1.2 mg/dL [facility] INSURANCE BILL Alkaline Phosphatase 68 39 - 117 IU/L [facility] INSURANCE BILL AST 19 0 - 40 IU/L [facility] INSURANCE BILL ALT 30 0 - 32 IU/L [facility] INSURANCE BILL Comment:FASTING Blood BLOOD SPECIMEN / Unknown 03/12/2018 9:56 AM CDT 03/12/2018 Narrative Resulting Agency Comment [facility] [address] ??[facility] [phone] Arabella Bose MD LAB - CHEMISTRY O RDERABLES [facility] INSURANCE BILL [address] [place] [address] * C-REACTIVE PROTEIN (03/12/2018 9:56 AM CDT) C-Reactive Protein 4.0 0.0 - 4.9 mg/L [facility] INSURANCE BILL Comment:FASTING Blood BLOOD SPECIMEN / Unknown 03/12/2018 9:56 AM CDT 03/12/2018 Narrative Resulting Agency Comment [facility] [address] ??[facility] [phone] Arabella Bose MD LAB - CHEMISTRY O RDERABLES Performing Organization Address City/[facility]/ZIP Co de Phone Number [facility] INSURANCE BILL [address] [place] [address] * ERYTHROCYTE SEDIMENTATION RATE (03/12/2018 9:56 AM CDT) Erythrocyte Sedimentation Rate Westergren 2 0 - 40 mm/hr [facility] INSURANCE BILL Comment:FASTING Blood BLOOD SPECIMEN / Unknown 03/12/2018 9:56 AM CDT 03/12/2018 Narrative Resulting Agency Comment [facility] [address] ??[facility] [phone] Arabella Bose MD LAB - HEMATOLOGY ORDERABLES [facility] INSURANCE BILL [address] [place] [address] documented in this encounter Visit Diagnoses Diagnosis 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 arthritis (HCC) Rheumatoid arthritis Arthralgia of multiple joints Pain in joint, multiple sites senior living current use of 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 Encounter for therapeutic drug monitoring documented in this encounter Care Teams Resources Representative Relationship Specialty Start Date End Date Tanya Jane MD [address] [place] [address] [place] [address] PCP - General 01/05/18 07/09/24 documented as of this encounter
--- OUTSIDE RECORDS SUMMARY | 2024-11-09 23:17 | XMS_ITS | Encounter Summary ---
Author Organization [facility] Address [address] [place] [address]. [place], [place] [address] [place] [address] Care Team Providers Care Load Planner Name Role Phone Toshia Carrasco MD Primary Care Provider Unavailable Toshia Carrasco MD Primary Care Provider Unavailable Encounter Details Date Type Department Care Team (Late st Contact Info) Description 12/26/1995 Abstract [facility] CONVERSION [address] [place] [id number] Toshia Carrasco MD Social History Tobacco Use [...] on filedocumented in this encounter Care Teams Load Planner Relationship Specialty Start Date End Date Toshia Carrasco MD PCP - General 10/09/15 Toshia Carrasco MD PCP - General 08/09/1010/08 documented as of this encounter
--- OUTSIDE RECORDS SUMMARY | 2024-11-09 23:17 | XMS_ITS | Encounter Summary ---
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; Encounter [...] Visit [facility] [address] [facility], [place] [address] Thalia Dunlap MD [address] [facility] [address] [place] [address] [place] [address] 01/09/2025 2:30 PM CDT Office Visit [facility] [address] [facility], [place] [address] Matias Lewis III, MD [address] [facility] 2L [place] [address] 02/25/2025 2:30 PM CDT Office Visit [facility] - Rheumatology [address] [facility], [place] [address] Lonnie Tai MD [address] [facility] [place] [address] documented as of this encounter Visit Diagnoses Diagnosis 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 arthritis (HCC) Rheumatoid arthritis Arthralgia of multiple joints Pain in joint, multiple sites [facility]P current use of 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 Encounter for therapeutic drug monitoring documented in this encounter Care Teams Patent Leather Sorter Relationship Specialty Start Date End Date Tanya Jane MD [address] [place] [phone] PCP - General 01/05/18 07/09/24 documented as of this encounter
--- OUTSIDE RECORDS SUMMARY | 2024-11-09 23:17 | XMS_ITS | Encounter Summary ---
Author Organization [facility] Address [address] [facility] [place] [address] Care Team Providers Care Stereotype Finisher Name Role Phone Tanya Jane MD Primary Care Provider [phone] Reason for Visit * Reason Onset Date Comments MEDICATION REFILL 04/11/2018 Encounter Details Date Type Department Care Team ([facility] Contact Info) Description 04/11/2018 Refill [facility] [address] [place] [address] Sudhir Mathew MD [address] [place] [address] MEDICATION REFILL Social History Tobacco Use Types [...] Upcoming Encounters Date Type Department Care Team ([facility] Contact Info) Description 01/09/2025 2:00 PM CDT Office Visit [facility] [address] [facility], [place] [address] Thalia Dunlap MD [address] [facility] [address] [place] [address] 01/09/2025 2:30 PM CDT Office Visit [facility] [address] [facility] [place] [address] Matias Lewis III, MD [address] [facility] 2L [place] [address] 02/25/2025 2:30 PM CDT Office Visit [facility] - Rheumatology [address] [facility], [place] [address] Lonnie Tai MD [address] [facility] [place] [address] documented as of this encounter Visit Diagnoses Not on filedocumented in this encounter Care Teams Stereotype Finisher Relationship Specialty Start Date End Date Tanya Jane MD [address] [place] [address] [place] [address] PCP - General 01/05/18 07/09/24 documented as of this encounter
--- OUTSIDE RECORDS SUMMARY | 2024-11-09 23:17 | XMS_ITS | Encounter Summary ---
Author Organization [facility] Address [address] [place] [address]. [place], [place] [address] [place] [address] Care Team Providers Care Director Emergency Name Role Phone Toshia Carrasco MD Primary Care Provider Unavailable Toshia Carrasco MD Primary Care Provider Unavailable Encounter Details Date Type Department Care Team (Late st Contact Info) Description 08/09/2010 Abstract [facility] [address] [place] [address] Toshia Carrasco MD Social History Tobacco Use [...] as of this encounter Visit Diagnoses Diagnosis Other orthopedic aftercare(V54.89) Other orthopedic aftercare documented in this encounter Care Teams Director Emergency Relationship Specialty Start Date End Date Toshia Carrasco MD PCP - General 10/09/15 Toshia Carrasco MD PCP - General 08/09/1010/08 documented as of this encounter
--- OUTSIDE RECORDS SUMMARY | 2024-11-09 23:17 | XMS_ITS | Encounter Summary ---
Author Organization [facility] Health Address [address] [facility] [place] [address] Care Team Providers Care Sorority Mother Name Role Phone Unavailable Primary Care Provider Unavailabl e Encounter Details Date Type Department Care Team (Latest Contact Info) Description 2016 Hospital Outpatient Visit Historic [facility] [address] [place] [phone] Arabella Bose MD [address] [place] [address] Discharge Disposition: Home or Self Care Social [...] [facility] [address] [phone] Thalia Dunlap MD [address] [place] [address] [address] [place] [id number] 01/09/2025 2:30 PM CDT Office Visit [facility] - [address] [phone] Matias Lewis III, MD [address] [place] [address] [address] [place] [phone] 02/25/2025 2:30 PM CDT Office Visit [facility] - Rheumatology [address] [facility] [place] [address] Lonnie Tai MD [address] [facility] [place] [address] documented as of this encounter Procedures Procedure Name Priority Date/Time Associated Diagnosis Comments XR HAND RIGHT 3VW OR MORE Routine 2016 3:15 PM CDT XR HAND LEFT 3VW OR MORE Routine 2016 3:15 PM CDT documented in this encounter Results * XR HAND RIGHT 3VW OR MORE (2016 3:15 PM CDT) Anatomical Region Laterality Modality Wrist / Hand Other Impressions 2016 3:23 PM CDT IMPRESSION: 1. Very mild osteoarthritis bilaterally. 2. 2 small apparent erosions in the right ulnar styloid process, which could reflect rheumatoid arthritis in the appropriate clinical setting. No other erosions are seen. 3. Osteopenia. 4. Small soft tissue calcifications adjacent to the second and third proximal interphalangeal joints of both hands. This report was electronically signed by TERRANCE LYLES MD ??on 2016 3:23 PM . Narrative 2016 3:23 PM CDT Exam: 1. XR HAND RIGHT 3+ VW, 2. XR HAND LEFT 3+ VW History: ??Pos RF with hx of PIP 3rd swelling bilaterally Comparison: None available. Findings: Right hand: No acute fracture or dislocation is seen. The metacarpophalangeal joint spaces are normal. There is mild degenerative change at several interphalangeal joints. No erosions are seen in the hand. However, there are 2 small concavities in the cortical contour of the ulnar styloid process which appears represent small erosions. The bones are osteopenic, including in the periarticular regions. There is a chronic spur at the dorsal aspect of the wrist, most likely due to old trauma. There is mild osteoarthritis at the first carpometacarpal joint. The soft tissues are unremarkable. A small soft tissue calcification is seen adjacent to the third finger middle phalanx head dorsally, and another is likely present adjacent to the second proximal phalanx head. There is no significant arthritis at the third proximal interphalangeal joint. Left hand: No acute fracture or dislocation is seen. The metacarpophalangeal joint spaces are normal. Small soft tissue calcifications are seen along the dorsal aspect of the second and third metacarpal heads, back space. There is minimal degenerative change at the first interphalangeal joint. There is mild osteoarthritis at the first carpometacarpal joint. No erosions are seen. There is osteopenia, including in the periarticular regions. The ulnar styloid process appears normal. There is mild soft tissue swelling in the wrist. Otherwise the soft tissues are normal. There is no significant arthritis at the third proximal interphalangeal joint. Procedure Note Terrance Lyles MD - 01/20/2018 Exam: 1. XR HAND RIGHT 3+ VW, 2. XR HAND LEFT 3+ VW History: Pos RF with hx of PIP 3rd swelling bilaterally Comparison: None available. Findings: Right hand: No acute fracture or dislocation is seen. The metacarpophalangeal jointspaces are normal. There is mild degenerative change at severalinterphalangeal joints. No erosions are seen in the hand. However, thereare 2 small concavities in the cortical contour of the ulnar styloid process which appears represent smallerosions. The bones are osteopenic, including in the periarticularregions. There is a chronic spur at the dorsal aspect of the wrist, mostlikely due to old trauma. There is mild osteoarthritis at the first carpometacarpal joint. The soft tissues areunremarkable. A small soft tissue calcification is seen adjacent to thethird finger middle phalanx head dorsally, and another is likely presentadjacent to the second proximal phalanx head. There is no significant arthritis at the third proximalinterphalangeal joint. Left hand: No acute fracture or dislocation is seen. The metacarpophalangeal jointspaces are normal. Small soft tissue calcifications are seen along thedorsal aspect of the second and third metacarpal heads, back space. Thereis minimal degenerative change at the first interphalangeal joint. There is mild osteoarthritis at the firstcarpometacarpal joint. No erosions are seen. There is osteopenia,including in the periarticular regions. The ulnar styloid process appearsnormal. There is mild soft tissue swelling in the wrist. Otherwise the soft tissues are normal. There is nosignificant arthritis at the third proximal interphalangeal joint. IMPRESSION IMPRESSION: 1. Very mild osteoarthritis bilaterally. 2. 2 small apparent erosions in the right ulnar styloid process, whichcould reflect rheumatoid arthritis in the appropriate clinical setting. Noother erosions are seen. 3. Osteopenia. 4. Small soft tissue calcifications adjacent to the second and thirdproximal interphalangeal joints of both hands. This report was electronically signed by TERRANCE LYLES MD on2016 3:23 PM . Arabella Bose MD DIAGNOSTIC IMAGIN G ORDERABLES * XR HAND LEFT 3VW OR MORE (2016 3:15 PM CDT) Anatomical Region Laterality Modality Wrist / Hand Other Impressions 2016 3:23 PM CDT IMPRESSION: 1. Very mild osteoarthritis bilaterally. 2. 2 small apparent erosions in the right ulnar styloid process, which could reflect rheumatoid arthritis in the appropriate clinical setting. No other erosions are seen. 3. Osteopenia. 4. Small soft tissue calcifications adjacent to the second and third proximal interphalangeal joints of both hands. This report was electronically signed by TERRANCE LYLES MD ??on 2016 3:23 PM . Narrative 2016 3:23 PM CDT Exam: 1. XR HAND RIGHT 3+ VW, 2. XR HAND LEFT 3+ VW History: ??Pos RF with hx of PIP 3rd swelling bilaterally Comparison: None available. Findings: Right hand: No acute fracture or dislocation is seen. The metacarpophalangeal joint spaces are normal. There is mild degenerative change at several interphalangeal joints. No erosions are seen in the hand. However, there are 2 small concavities in the cortical contour of the ulnar styloid process which appears represent small erosions. The bones are osteopenic, including in the periarticular regions. There is a chronic spur at the dorsal aspect of the wrist, most likely due to old trauma. There is mild osteoarthritis at the first carpometacarpal joint. The soft tissues are unremarkable. A small soft tissue calcification is seen adjacent to the third finger middle phalanx head dorsally, and another is likely present adjacent to the second proximal phalanx head. There is no significant arthritis at the third proximal interphalangeal joint. Left hand: No acute fracture or dislocation is seen. The metacarpophalangeal joint spaces are normal. Small soft tissue calcifications are seen along the dorsal aspect of the second and third metacarpal heads, back space. There is minimal degenerative change at the first interphalangeal joint. There is mild osteoarthritis at the first carpometacarpal joint. No erosions are seen. There is osteopenia, including in the periarticular regions. The ulnar styloid process appears normal. There is mild soft tissue swelling in the wrist. Otherwise the soft tissues are normal. There is no significant arthritis at the third proximal interphalangeal joint. Procedure Note Terrance Lyles MD - 01/20/2018 Exam: 1. XR HAND RIGHT 3+ VW, 2. XR HAND LEFT 3+ VW History: Pos RF with hx of PIP 3rd swelling bilaterally Comparison: None available. Findings: Right hand: No acute fracture or dislocation is seen. The metacarpophalangeal jointspaces are normal. There is mild degenerative change at severalinterphalangeal joints. No erosions are seen in the hand. However, thereare 2 small concavities in the cortical contour of the ulnar styloid process which appears represent smallerosions. The bones are osteopenic, including in the periarticularregions. There is a chronic spur at the dorsal aspect of the wrist, mostlikely due to old trauma. There is mild osteoarthritis at the first carpometacarpal joint. The soft tissues areunremarkable. A small soft tissue calcification is seen adjacent to thethird finger middle phalanx head dorsally, and another is likely presentadjacent to the second proximal phalanx head. There is no significant arthritis at the third proximalinterphalangeal joint. Left hand: No acute fracture or dislocation is seen. The metacarpophalangeal jointspaces are normal. Small soft tissue calcifications are seen along thedorsal aspect of the second and third metacarpal heads, back space. Thereis minimal degenerative change at the first interphalangeal joint. There is mild osteoarthritis at the firstcarpometacarpal joint. No erosions are seen. There is osteopenia,including in the periarticular regions. The ulnar styloid process appearsnormal. There is mild soft tissue swelling in the wrist. Otherwise the soft tissues are normal. There is nosignificant arthritis at the third proximal interphalangeal joint. IMPRESSION IMPRESSION: 1. Very mild osteoarthritis bilaterally. 2. 2 small apparent erosions in the right ulnar styloid process, whichcould reflect rheumatoid arthritis in the appropriate clinical setting. Noother erosions are seen. 3. Osteopenia. 4. Small soft tissue calcifications adjacent to the second and thirdproximal interphalangeal joints of both hands. This report was electronically signed by TERRANCE LYLES MD on2016 3:23 PM . Arabella Bose MD DIAGNOSTIC IMAGIN G ORDERABLES documented in this encounter Visit Diagnoses Diagnosis Other specified abnormal immunological findings in serum documented in this encounter
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
--- OUTSIDE RECORDS SUMMARY | 2024-11-09 23:19 | XMS_ITS | Encounter Summary ---
Author Organization [facility] Address [address] [place] [address] Care Team Providers Care College Specialist Name Role Phone Tanya Jane MD Primary Care Provider + Encounter Details Date Type Department Care Team (Late st Contact Info) Description 07/14/2021 Telephone [facility] Cardiology [address] [place] [address] Gus Kapoor MD [address] [place] [id number] Social History Tobacco Use Types Packs/Day Years Used Date Smoking Tobacco: Former Cigarettes Smokeless Tobacco: Never Comments Unknown Sex and Gender Information Value Date Recorded Sex Assigned at Not on file 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 Patient verbalized understanding. Rx sent for 30 day supply with refills. Patient to notify us of any worsening symptoms or if no improvement with medication. ----- Message from Gus Kapoor MD sent at 07/14/2021 1:12 PM CDT ----- Activity tolerance is not very good, chest discomfort in early recovery concerning as well after exercise. Patient previously reported chest pain associated with stress as well. Equivocal EKG changesfor ischemia. LV function is hyperdynamic with normal perfusion imaging which is favorable. It is possible patient's concerning symptoms may be caused by hypertensive blood pressure response during exercise or multivessel CAD. She has multiple risk factors for underlying CAD. I would recommend addition of isosorbide mononitrate 30 mg daily for additional antianginal benefit as well as potential improvement in blood pressure control with activity. If symptoms are progressive or are not improved coronary angiography would be advised. She needs to monitor symptoms closely report any new concernsor recurrence immediately. If severe and unrelenting present to the nearest ER via EMS immediately. documented in this encounter Plan of Treatment Not on file documented as of this encounter Visit Diagnoses Not on filedocumented in this encounter Care Teams College Specialist Relationship Specialty Start Date End Date Tanya Jane MD [address] [address] PCP - General Family Medicine 07/02/21 09/01/24 documented as of this encounter
--- OUTSIDE RECORDS SUMMARY | 2024-11-09 23:19 | XMS_ITS | Referral Summary ---
Author Organization [facility] [address] Address [address] [place] [address] Care Team Providers Care Ledger Clerk Name Role Phone Eliana Mcneal NP Primary Care Provider [phone] Encounters Date Type Department Care Team Description 09/02/2024 9:30 AM COMPLIANCE ADVISOR Office Visit [facility] Cardiology [address] [place] [address] Nam Moore MD Hypertension associated with diabetes (HCC) (Primary Dx); Mixed diabetic hyperlipidemia associated with type 2 diabetes mellitus (HCC); Chest pain, unspecified type; Rheumatoid arthritis, involving unspecified site, unspecified whether rheumatoid factor present (HCC) from Last 3 Months Allergies Active Allergy Reactions Criticality Noted Date Comments Codeine Nausea only,Nausea And Vomiting Low 07/24 Medications amLODIPine (NORVASC) 5 mg tablet Take 1 tablet (5 mg total) by mouth daily 06/29/20 21 Active ergocalciferol (VITAMIN D) 50,000 unit capsule ergocalciferol (vitamin D2) 1,250 mcg (50,000 unit) capsule TAKE 1 CAPSULE BY MOUTH EVERY WEEK Active fenofibrate (TRIGLIDE) 160 mg tablet Take 1 tablet (160 mg total) by mouth nightly 04/07/20 21 Active glipiZIDE XL (GLUCOTROL XL) 10 mg 24 hr tablet Take 2 tablets (20 mg total) by mouth daily 06/16/20 21 Active hydroCHLOROthia zide (HYDRODIURIL) 25 mg tablet Take 1 tablet (25 mg total) by mouth daily 05/17/20 21 Active levothyroxine (SYNTHROID) 75 mcg tablet levothyroxine 75 mcg tablet TAKE 1 TABLET BY MOUTH EVERY DAY 08/02/20 16 Active losartan (COZAAR) 100 mg tablet losartan 100 mg tablet TAKE 1 TABLET BY MOUTH EVERY DAY 03/21/20 18 Active metFORMIN (GLUCOPHAGE) 1,000 mg tablet Take 1 tablet (1,000 mg total) by mouth every 12 (twelve) hours 06/29/20 21 Active omeprazole (PriLOSEC) 40 mg capsule Take by mouth daily 06/16/20 21 Active potassium chloride ER (KLOR-CON) 20 mEq CR tablet potassium chloride ER 20 mEq tablet,extended release TAKE 1 TABLET BY MOUTH TWICE DAILY 07/22/20 20 Active simvastatin (ZOCOR) 20 mg tablet Take 1 tablet (20 mg total) by mouth nightly 04/10/20 21 Active aspirin (Adult Low Dose Aspirin) 81 mg enteric coated tablet Take 1 tablet (81 mg total) by mouth daily 07/05/20 21 Active EnbreL SureClick 50 mg/mL (1 mL) pen injector ADMINISTER 1 ML UNDER THE SKIN EVERY 7 DAYS 10/19/20 21 Active SITagliptin (JANUVIA) 100 mg tabletIndicatio ns:type 2 diabetes mellitus Take 1 tablet (100 mg total) by mouth daily Active tirzepatide (MOUNJARO SUBQ) 5 mg Acti ve hydroxychloroqu ine (PLAQUENIL) 200 mg tablet Take 1.5 tablets (300 mg total) by mouth 2 (two) times a day 08/02/20 23 Active HYDROcodone-hany taminophen (NORCO) 5-325 mg per tabletIndicatio ns:Pain Take 1 tablet by mouth every 6 (six) hours as needed Active leflunomide (ARAVA) 20 mg tabletIndicatio ns:Rheumatoid Arthritis Take 1 tablet (20 mg total) by mouth daily Active nitroglycerin (NITROSTAT) 0.[address] 1 tablet (0.4 mg total) under the tongue every 5 (five) minutes as needed for chest pain Max 3 doses. 20 tablet 3 08/21/20 23 Active isosorbide mononitrate ER (IMDUR) 30 mg 24 hr tablet TAKE 1 TABLET(30 MG) BY MOUTH DAILY 90 tablet 3 11/24/19 24 Active cyanocobalamin (Vitamin B-12) 1,000 mcg/mL injection Inject 1 mL (1,000 mcg total) under the skin every 30 (thirty) days 03/03/20 Active Active Problems Problem Noted Date Diagnosed Date Iron deficiency anemia 08/29/2024 Chest pain 07/05/2021 Hypertension associated with diabetes 07/05/2021 Mixed diabetic hyperlipidemi a associated with type 2 diabetes mellitus 07/05/2021 Rheumatoid arthritis 07/05/2021 Chronic fatigue 07/05/2021 History of tobacco abuse 07/05/2021 Marijuana use 07/05/2021 Social History Tobacco Use Types Packs/Day Years Used Date Smoking Tobacco: Former Cigarettes Smokeless Tobacco: Never Comments Unknown Sex and Gender Information Value Date Recorded Sex Assigned at Not on file Legal Sex 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 Gender Identity Not on file Sexual Orientation Not on file Last Filed Vital Signs Vital Sign Reading Time Taken Comments Blood Pressure 120/70 09/02/2024 9:32 AM COMPLIANCE ADVISOR Pulse 76 09/02/2024 9:32 AM COMPLIANCE ADVISOR Temperature - - Respiratory Rate 16 07/26/2021 11:26 AM CDT Oxygen Saturation 99% 09/02/2024 9:32 AM COMPLIANCE ADVISOR Inhaled Oxygen Concentration - - Weight 74.4 kg (164 lb) 09/02/2024 9:32 AM COMPLIANCE ADVISOR Height 170.2 cm (5' 7 ) 09/02/2024 9:32 AM COMPLIANCE ADVISOR Body Mass Index 25.69 09/02/2024 9:32 AM COMPLIANCE ADVISOR Plan of Treatment Not on file Procedures Procedure Name Priority Date/Time Associated Diagnosis Comments POCT LIPID PANEL Routine 09/02/2024 9:26 AM COMPLIANCE ADVISOR Mixed diabetic hyperlipidemia associated with type 2 diabetes mellitus (HCC) from Last 3 Months Results * POCT lipid panel (09/02/2024 9:26 AM COMPLIANCE ADVISOR) Cholesterol, POC 101 mg/dL HDL, POC 46 mg/dL Triglycerides, POC 86 mg/dL LDL Cholesterol POC 38 mg/dL Chol/HDL Ratio, POC 0.8 Non-HDL Cholesterol, POC 56 mg/dL Cholesterol Total, POC 101 mg/dL Capillary blood 09/02/2024 9 :26 AM COMPLIANCE ADVISOR Nam Moore MD POINT OF CARE TEST O RDERABLES Final Result from Last 3 Months Insurance [employer] Member Subscriber Plan / Payer (Ef fective 2022-Present) Name:Kianna Hill Relation to Subscriber:Self Name:Kianna Hill Payer ID:[id number] (NAIC) Type:[facility] MEDICARE Address: [place] [phone] MEDICARE [employer] Care Teams Ledger Clerk Relationship Specialty Start Date End Date Eliana Mcneal NP [phone] [address] PCP - General Family Medicine 09/02/24
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
--- OUTSIDE RECORDS SUMMARY | 2024-11-09 23:19 | XMS_ITS | Encounter Summary ---
Author Organization [facility] Address [address] [place] [address] Care Team Providers Care Lean [employer] Sigma Senior Specialist Name Role Phone Eliana Mcneal NP Primary Care Provider Reason for Visit * Reason Comments Chest Pain Hypertension Hyperlipidemia Annual f/u Encounter Details Date Type Department Care Team (Latest Contact Info) Description 09/02/2024 9:30 AM UNDERGROUND MINING SECTION FOREMAN Office Visit [facility] Cardiology [address] [place] [address] Nam Moore MD [address] [place] [id number] Hypertension associated with diabetes (HCC) (Primary Dx); Mixed diabetic hyperlipidemia associated with type 2 diabetes mellitus (HCC); Chest pain, unspecified type; Rheumatoid arthritis, involving unspecified site, unspecified whether rheumatoid factor present (HCC) Social History Tobacco Use Types Packs/Day Years Used Date Smoking Tobacco: Former Cigarettes Smokeless Tobacco: Never Comments Unknown Sex and Gender Information Value Date Recorded Sex Assigned at Not on file Legal Sex Female 9:57 PM UNDERGROUND MINING SECTION FOREMAN Gender Identity Not on file Sexual Orientation Not on file documented as of this encounter Last Filed Vital Signs Vital Sign Reading Time Taken Comments Blood Pressure 120/70 09/02/2024 9:32 AM UNDERGROUND MINING SECTION FOREMAN Pulse 76 09/02/2024 9:32 AM UNDERGROUND MINING SECTION FOREMAN Temperature - - Respiratory Rate - - Oxygen Saturation 99% 09/02/2024 9:32 AM UNDERGROUND MINING SECTION FOREMAN Inhaled Oxygen Concentration - - Weight 74.4 kg (164 lb) 09/02/2024 9:32 AM UNDERGROUND MINING SECTION FOREMAN Height 170.2 cm (5' 7 ) 09/02/2024 9:32 AM UNDERGROUND MINING SECTION FOREMAN Body Mass Index 25.69 09/02/2024 9:32 AM UNDERGROUND MINING SECTION FOREMAN documented in this encounter Progress Notes * Nam Moore MD - 09/02/2024 9:30 AM CST [facility] CARDIOLOGY DATE OF VISIT: 09/02/2024 CHIEF COMPLAINT Chief Complaint Patient presents with ??? Chest Pain ??? Hypertension ??? Hyperlipidemia Annual f/u HPI Kianna Hill is a 74 y.o. female Who is a former patient of Dr. Kapoor. Past history of hypertension, diabetes, hyperlipidemia, rheumatoid arthritis and GERD. She gets chest pains couple times a week after drinking a pot of coffee. Feels pressure in her chest and then gets relieved when she walks around for 5-10 minutes. Denies shortness of breath, lower extremity edema, dizziness, syncope, palpitations. Gained 6 lb compared to last visit. MEDICAL HISTORY Past Medical History: Diagnosis Date ??? Anxiety and depression ??? Arthritis ??? Diabetes mellitus (HCC) ??? Hyperlipidemia ??? Hypertension ??? Neuropathy (CMS/HCC) ??? Porokeratosis ??? Thyroid disease ??? Vitamin D deficiency Past Surgical History: Procedure Laterality Date ??? HERNIA REPAIR ??? STOMACH SURGERY ??? TONSILLECTOMY Social History Tobacco Use ??? Smoking status: Former Types: Cigarettes ??? Smokeless tobacco: Never Substance and Sexual Activity ??? Drug use: Yes Frequency: 3.0 times per week Types: Alcohol, Marijuana ??? Sexual activity: None Alcohol Use: Not on file Family History Problem Relation Age of Onset ??? Angina Mother ??? Arthritis Mother ??? Arthritis Father ??? Cancer Brother ??? Heart attack Sister MEDICATIONS Current Outpatient Medications Medication Sig Dispense Refill ??? amLODIPine (NORVASC) 5 mg tablet Take 1 tablet (5 mg total) by mouth daily ??? aspirin (Adult Low Dose Aspirin) 81 mg enteric coated tablet Take 1 tablet (81 mg total) by mouth daily ??? cyanocobalamin (Vitamin B-12) 1,000 mcg/mL injection Inject 1 mL (1,000 mcg total) under the skin every 30 (thirty) days ??? EnbreL SureClick 50 mg/mL (1 mL) pen injector ADMINISTER 1 ML UNDER THE SKIN EVERY 7 DAYS ??? ergocalciferol (VITAMIN D) 50,000 unit capsule ergocalciferol (vitamin D2) 1,250 mcg (50,000 unit) capsule TAKE 1 CAPSULE BY MOUTH EVERY WEEK ??? fenofibrate (TRIGLIDE) 160 mg tablet Take 1 tablet (160 mg total) by mouth nightly ??? glipiZIDE XL (GLUCOTROL XL) 10 mg 24 hr tablet Take 2 tablets (20 mg total) by mouth daily ??? hydroCHLOROthiazide (HYDRODIURIL) 25 mg tablet Take 1 tablet (25 mg total) by mouth daily ??? HYDROcodone-acetaminophen (NORCO) 5-325 mg per tablet Take 1 tablet by mouth every 6 (six) hours as needed ??? hydroxychloroquine (PLAQUENIL) 200 mg tablet Take 1.5 tablets (300 mg total) by mouth 2 (two) times a day ??? isosorbide mononitrate ER (IMDUR) 30 mg 24 hr tablet TAKE 1 TABLET(30 MG) BY MOUTH DAILY 90 tablet 3 ??? leflunomide (ARAVA) 20 mg tablet Take 1 tablet (20 mg total) by mouth daily ??? levothyroxine (SYNTHROID) 75 mcg tablet levothyroxine 75 mcg tablet TAKE 1 TABLET BY MOUTH EVERY DAY ??? losartan (COZAAR) 100 mg tablet losartan 100 mg tablet TAKE 1 TABLET BY MOUTH EVERY DAY ??? metFORMIN (GLUCOPHAGE) 1,000 mg tablet Take 1 tablet (1,000 mg total) by mouth every 12 (twelve) hours ??? nitroglycerin (NITROSTAT) 0.[address] 1 tablet (0.4 mg total) under the tongue every5 (five) minutes as needed for chest pain Max 3 doses. 20 tablet 3 ??? omeprazole (PriLOSEC) 40 mg capsule Take by mouth daily ??? potassium chloride ER (KLOR-CON) 20 mEq CR tablet potassium chloride ER 20 mEq tablet,extended release TAKE 1 TABLET BY MOUTH TWICE DAILY ??? simvastatin (ZOCOR) 20 mg tablet Take 1 tablet (20 mg total) by mouth nightly ??? SITagliptin (JANUVIA) 100 mg tablet Take 1 tablet (100 mg total) by mouth daily ??? tirzepatide (MOUNJARO SUBQ) 5 mg No current facility-administered medications for this visit. ALLERGIES Allergies Allergen Reactions ??? Codeine Nausea only and Nausea And Vomiting REVIEW OF SYSTEMS Review of Systems Constitutional: Positive for weight gain. Negative for chills, fever and malaise/fatigue. HENT: Negative for congestion and sore throat. Eyes: Negative for blurred vision and double vision. Cardiovascular: Positive for chest pain. Negative for claudication, dyspnea on exertion, leg swelling, near-syncope, orthopnea, palpitations, paroxysmal nocturnal dyspnea and syncope. Respiratory: Negative for cough, hemoptysis, shortness of breath, snoring, sputum production and wheezing. Endocrine: Negative for cold intolerance and polyuria. Hematologic/Lymphatic: Negative for bleeding problem. Does not bruise/bleed easily. Skin: Negative for itching and rash. Musculoskeletal: Negative for back pain, joint pain and joint swelling. Gastrointestinal: Negative for abdominal pain, diarrhea, nausea and vomiting. Genitourinary: Negative for dysuria, frequency and hematuria. Neurological: Negative for focal weakness, headaches and light-headedness. Psychiatric/Behavioral: Negative for depression. The patient is not nervous/anxious. Allergic/Immunologic: Negative for environmental allergies and hives. PHYSICAL EXAM Vitals BP 120/70 (BP Location: Left arm, Patient Position: Sitting) Pulse 76 Ht 170.2 cm (5' 7 ) Wt 74.4 kg (164 lb) SpO2 99% BMI 25.69 kg/m?? Body mass index is 25.69 kg/m??. Physical Exam Constitutional: General: She is not in acute distress. Appearance: She is well-developed. HENT: Head: Normocephalic and atraumatic. Right Ear: External ear normal. Left Ear: External ear normal. Eyes: General: No scleral icterus. Left eye: No discharge. Conjunctiva/sclera: Conjunctivae normal. Neck: Thyroid: No thyromegaly. Cardiovascular: Rate and Rhythm: Normal rate and regular rhythm. Heart sounds: Normal heart sounds. No murmur heard. No friction rub. No gallop. Pulmonary: Effort: Pulmonary effort is normal. No respiratory distress. Breath sounds: Normal breath sounds. No wheezing or rales. Chest: Chest wall: No tenderness. Abdominal: General: There is no distension. Palpations: Abdomen is soft. Tenderness: There is no abdominal tenderness. Musculoskeletal: General: No tenderness or deformity. Cervical back: Normal range of motion and neck supple. Right lower leg: No edema. Left lower leg: No edema. Skin: General: Skin is warm. Findings: No erythema or rash. Neurological: Mental Status: She is alert and oriented to person, place, and time. Motor: No abnormal muscle tone. Psychiatric: Mood and Affect: Mood normal. LABS AND OTHER DIAGNOSTIC TESTS No results found for: WBC , HGB , HCT , MCV , PLT Chemistry No results found for: SODIUM , POTASSIUM , CHLORIDE , CO2 , BUNSER , CREATININE , GLUCOSE No results found for: CALCIUM , ALKPHOS , AST , ALT , BILITOT ASSESSMENT Diagnoses and all orders for this visit: Hypertension associated with diabetes (HCC) (Primary) Mixed diabetic hyperlipidemia associated with type 2 diabetes mellitus (HCC) Chest pain, unspecified type Rheumatoid arthritis, involving unspecified site, unspecified whether rheumatoid factor present (HCC) PLAN/RECOMMENDATIONS In regards to hypertension, blood pressure is controlled today 120/70. Continue amlodipine, HCTZ, losartan. Regards to hyperlipidemia lipid panel done today September 02, 2024 LDL 38, HDL 46 and [id number]. Continue simvastatin Regards to chest pains, recurrent episodes of chest pain after drinking a pot of coffee. It is relieved by walking around. Stress test 2020- for ischemia. Does not seem to be anginal. Continue omeprazole. Regards CKD stage 3, her creatinine level between 1.4-1.6, likely diabetic. Follow up with PCP. Regards to diabetes, she is on Januvia, metformin and Mounjaro. My total encounter time on 09/02/2024 was 41 minutes which was spent in the activities documented in the note. This includes time spent prior to the visit and after the visit in direct care of the patient. This time does not include time spent in any separately reportable services. Follow up in the office in in 1 year. Nam Moore MD RGROUND MINING SECTION FOREMAN documented in this encounter Plan of Treatment Not on file documented as of this encounter Procedures Procedure Name Priority Date/Time Associated Diagnosis Comments POCT LIPID PANEL Routine 09/02/2024 9:26 AM UNDERGROUND MINING SECTION FOREMAN Mixed diabetic hyperlipidemia associated with type 2 diabetes mellitus (HCC) documented in this encounter Results * POCT lipid panel (09/02/2024 9:26 AM UNDERGROUND MINING SECTION FOREMAN) Cholesterol, POC 101 mg/dL HDL, POC 46 mg/dL Triglycerides, POC 86 mg/dL LDL Cholesterol POC 38 mg/dL Chol/HDL Ratio, POC 0.8 Non-HDL Cholesterol, POC 56 mg/dL Cholesterol Total, POC 101 mg/dL Capillary blood 09/02/2024 9 :26 AM UNDERGROUND MINING SECTION FOREMAN us Nam Moore MD POINT OF CARE TEST O RDERABLES Final Result documented in this encounter Visit Diagnoses Diagnosis Hypertension associated with diabetes (HCC)- Primary Unspecified essential hypertension Mixed diabetic hyperlipidemia associated with type 2 diabetes mellitus (HCC) Chest pain, unspecified type Rheumatoid arthritis, involving unspecified site, unspecified whether rheumatoid factor present (HCC) documented in this encounter Discontinued Medications Medication Sig Discontinue Reason Start Date End Da te meloxicam (MOBIC) 7.5 mg tablet meloxicam 7.5 mg tablet TAKE 1 TABLET BY MOUTH EVERY DAY NEEDED Therapy completed 10/01/2020 09/02/2024 diazePAM (VALIUM) 2 mg tablet Take 2 mg by mouth every 12 (twelve) hours as needed for anxiety Therapy completed 09/02/[address] (VOLTAREN) 75 mg EC tablet Take 1 tablet (75 mg total) by mouth 2 (two) times a day Therapy completed 08/02/2023 09/02/2024 documented as of this encounter Historical Medications * This list may reflect changes made after this encounter. cyanocobalamin (Vitamin B-12) 1,000 mcg/mL injection Inject 1 mL (1,000 mcg total) under the skin every 30 (thirty) days 03/03/2023 added in this encounter Care Teams Lean [employer] Senior Specialist Relationship Specialty Start Date End Date Eliana Mcneal NP [address] [address] PCP - General Family Medicine 09/02/24 documented as of this encounter
--- OUTSIDE RECORDS SUMMARY | 2024-11-09 23:19 | XMS_ITS | Clinical Summary ---
Author Organization [facility] [address] Address [address] [place] [address] Care Team Providers Care Rapid Extractor Operator Name Role Phone Eliana Mcneal NP Primary Care Provider [phone] Allergies Active Allergy Reactions Criticality Noted Date [...] the skin every 30 (thirty) days 03/03/20 23 Active Active Problems Problem Noted Date Diagnosed Date Iron deficiency anemia 08/29/2024 Chest pain 07/05/2021 Hypertension associated with diabetes 07/05/2021 Mixed diabetic hyperlipidemi a associated with type 2 diabetes mellitus 07/05/2021 Rheumatoid arthritis 07/05/2021 Chronic fatigue 07/05/2021 History of tobacco abuse 07/05/2021 Marijuana use 07/05/2021 Encounters Date Type Department Care Team Description 09/02/2024 9:30 AM BROADBAND ENGINEER Office Visit [facility] Cardiology [address] [place] [address] Nam Moore MD Hypertension associated with diabetes (HCC) (Primary Dx); Mixed diabetic hyperlipidemia associated with type 2 diabetes mellitus (HCC); Chest pain, unspecified type; Rheumatoid arthritis, involving unspecified site, unspecified whether rheumatoid factor present (HCC) from Last 3 Months Surgical History Surgery Date Site/Laterality Comments TONSILLECTOMY STOMACH SURGERY HERNIA REPAIR Medical History Medical History Date Comments Thyroid disease Diabetes mellitus (HCC) Vitamin D deficiency Hyperlipidemia Hypertension Arthritis Porokeratosis Neuropathy (CMS/HCC) Anxiety and depression Family History Medical History Relation Name Comments Cancer Brother Arthritis Father Angina Mother Arthritis Mother Heart attack Sister Relation Name Status Comments Brother (Age 60's) Father (Age 84) Mother (Age 79) Sister (Age 62) Social History Tobacco Use Types Packs/Day Years Used Date Smoking Tobacco: Former Cigarettes Smokeless Tobacco: Never Comments Unknown Sex and Gender Information Value Date Recorded Sex Assigned at Not on file Legal Sex Female 9:57 PM BROADBAND ENGINEER Gender Identity Not on file Sexual Orientation Not on file Obstetrics History Last Filed Vital Signs Vital Sign Reading Time Taken Comments Blood Pressure 120/70 09/02/2024 9:32 AM BROADBAND ENGINEER Pulse 76 09/02/2024 9:32 AM BROADBAND ENGINEER Temperature - - Respiratory Rate 16 07/26/2021 11:26 AM CDT Oxygen Saturation 99% 09/02/2024 9:32 AM BROADBAND ENGINEER Inhaled Oxygen Concentration - - Weight 74.4 kg (164 lb) 09/02/2024 9:32 AM BROADBAND ENGINEER Height 170.2 cm (5' 7 ) 09/02/2024 9:32 AM BROADBAND ENGINEER Body Mass Index 25.69 09/02/2024 9:32 AM BROADBAND ENGINEER Plan of Treatment Health Maintenance Due Date Last Done Comments Albumin Creatinine Ratio, Urine 1952 Breast Cancer Screening-Mammogram 1952 Colon Cancer Screening-Colonoscopy 1952 Depression Screening 1952 Fall Risk Assessment 1952 Hemoglobin A1C 1952 Hepatitis C Screening 1952 eGFR 1952 Dilated Eye Exam 1952 Foot Exam 1952 DTaP/Tdap/Td Vaccine (1 - Tdap) 1963 Hepatitis B Screening 1970 Zoster Vaccine (1 of 2) 2002 Well Visit 65+ 2017 Osteoporosis Screening-Bone Density Scan 05/13/2023 05/13/2021, 05/13/2021 Covid-19 Vaccine (3 - 2023-2 5 season) 2024 01/29/2021, 01/01/2021 Lipid Panel 09/02/2025 09/02/2024, 07/25, 2022, Additional history exists Pneumococcal vaccine 65+ Completed 12/02/2020, 11/2016 Influenza Vaccine Completed 08/27/2024, , 07/21/2020, Additional history exists Procedures Procedure Name Priority Date/Time Associated Diagnosis Comments POCT LIPID PANEL Routine 09/02/2024 9:26 AM BROADBAND ENGINEER Mixed diabetic hyperlipidemia associated with type 2 diabetes mellitus (HCC) from Last 3 Months Results * POCT lipid panel (09/02/2024 9:26 AM BROADBAND ENGINEER) Cholesterol, POC 101 mg/dL HDL, POC 46 mg/dL Triglycerides, POC 86 mg/dL LDL Cholesterol POC 38 mg/dL Chol/HDL Ratio, POC 0.8 Non-HDL Cholesterol, POC 56 mg/dL Cholesterol Total, POC 101 mg/dL Capillary blood 09/02/2024 9 :26 AM BROADBAND ENGINEER us Nam Moore MD POINT OF CARE TEST O RDERABLES Final Result from Last 3 Months Insurance [employer]ARE [employer] Care Teams Rapid Extractor Operator Relationship Specialty Start Date End Date Eliana Mcneal NP [address] [address] PCP - General Family Medicine 09/02/24
--- OUTSIDE RECORDS SUMMARY | 2024-11-09 23:19 | XMS_ITS | Encounter Summary ---
Author Organization [facility] Address [address] [place] [address] Care Team Providers Care Paddock Judge Name Role Phone Tanya Jane MD Primary Care Provider + Reason for Referral * Diagnostic Imaging (Routine) - Closed Specialty Diagnoses / Procedures Referred By Khoa soria Referred To Contact Diagnoses Dyslipidemia associated with type 2 diabetes mellitus (HCC) Hypertension associated with diabetes (HCC) Rheumatoid arthritis, involving unspecified site, unspecified whether rheumatoid factor present (HCC) Chronic fatigue Stable angina (HCC) Procedures NM MPI SPECT (Rest and/or Stress) Multiple Studies Izaiah Kapoor MD Phone: tel: fax: Referral ID Status Reason Start Date Expiration Date Visits Re quested Visits Authorized [id number] Closed 07/07/2021 08/21/2021 1 1 Reason for Visit * Reason Comments New Patient Chest Pain on & off x1 year * Consultation (Routine) - Closed Specialty Diagnoses / Procedures Referred By Khoa t Referred To Contact Cardiology Diagnoses Chest pain, unspecified type Guevara Perez MD [address] [facility] [place] [address] Phone: tel: fax: [facility] Cardiology [address] [place] [address] Phone: tel: fax: Referral ID Status Reason Start Date Expiration Date V isits Requested Visits Authorized [id number] Closed Specialty Services Required 07/05/2021 01/01/2022 6 6 Encounter Details Date Type Department Care Team (Late st Contact Info) Description 07/05/2021 1:45 PM CDT Office Visit [facility] Cardiology [address] [place] [address] Iziaah Kapoor MD [address] [facility] [address] [place], [place] [id number] Stable angina (CMS/HCC) (HCC) (Primary Dx); Hypertension associated with diabetes (HCC); Dyslipidemia associated with type 2 diabetes mellitus (CMS/HCC) (HCC); Rheumatoid arthritis, involving unspecified site, unspecified whether rheumatoid factor present (HCC); Chronic fatigue; Chest pain, unspecified type; History of tobacco abuse; Marijuana use Social History Tobacco Use Types Packs/Day Years Used Date Smoking Tobacco: Former Cigarettes Smokeless Tobacco: Never Comments Unknown Sex and Gender Information Value Date Recorded Sex Assigned at Not on file 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 Gender Identity Not on file Sexual Orientation Not on file documented as of this encounter Last Filed Vital Signs Vital Sign Reading Time Taken Comments Blood Pressure 126/74 07/05/2021 1:47 PM CDT Pulse 75 07/05/2021 1:47 PM CDT Temperature - - Respiratory Rate - - Oxygen Saturation 96% 07/05/2021 1:47 PM CDT Inhaled Oxygen Concentration - - Weight 79 kg (174 lb 1.6 oz) 07/05/2021 1:47 PM CDT Height 170.2 cm (5' 7 ) 07/05/2021 1:47 PM CDT Body Mass Index 27.27 07/05/2021 1:47 PM CDT documented in this encounter Ordered Prescriptions Prescription Sig Dispense Quantity Refills Last Filled Start Date End Date aspirin (Adult Low Dose Aspirin) 81 mg enteric coated tablet Take 1 tablet (81 mg total) by mouth daily 07/05/2021 nitroglycerin (NITROSTAT) 0.[address] 1 tablet (0.4 mg total) under the tongue every 5 (five) minutes as needed for chest pain Max 3 doses. 20 tablet 3 07/05/2021 3 documented in this encounter Progress Notes * Izaiah Kapoor MD - 07/05/2021 1:45 PM CDT Images from the original note were not included. DATE OF VISIT: 07/05/2021 CHIEF COMPLAINT Chief Complaint Patient presents with ??? New Patient ??? Chest Pain on & off x1 year ASSESSMENT Diagnoses and all orders for this visit: Stable angina (CMS/HCC) (HCC) (Primary) - NM MPI SPECT (Rest and/or Stress) Multiple Studies; Future Hypertension associated with diabetes (HCC) - NM MPI SPECT (Rest and/or Stress) Multiple Studies; Future Dyslipidemia associated with type 2 diabetes mellitus (CMS/HCC) (HCC) - NM MPI SPECT (Rest and/or Stress) Multiple Studies; Future Rheumatoid arthritis, involving unspecified site, unspecified whether rheumatoid factor present (HCC) - NM MPI SPECT (Rest and/or Stress) Multiple Studies; Future Chronic fatigue - NM MPI SPECT (Rest and/or Stress) Multiple Studies; Future Chest pain, unspecified type - Ambulatory referral to Cardiology History of tobacco abuse Marijuana use Other orders - aspirin (Adult Low Dose Aspirin) 81 mg enteric coated tablet; Take 1 tablet (81 mg total) by mouth daily - nitroglycerin (NITROSTAT) 0.4 mg SL tablet; Place 1 tablet (0.4 mg total) under the tongue every 5 (five) minutes as needed for chest pain Max 3 doses. PLAN/RECOMMENDATIONS 1. Concerning exertional chest pain, ACKERMAN and fatigue for angina. Risk factors including age, hypertension, dyslipidemia, history of tobacco abuse, and diabetes mellitus. Aggressive CAD risk modification counseling performed. Continue current medical therapy. Notify office immediately with anginal sy mptoms. -TM nuclear stress test JUAN to assess for myocardial ischemia. Discussed potential for invasive angiography with left heart catheterization depending on results of stress test. Nonetheless, explain her symptoms are highly concerning for angina will need to incorporate results of stress test. She agrees. -Begin ASA 81mg daily -Avoid sexual or overly strenuous activity for now. Monitor symptoms very closely. Counseled on useof sublingual nitroglycerin with chest pain. If chest pain not resolved after 2 doses present to nearest ER via EMS immediately. If chest pain severe unrelenting go to ER as counseled. Patient verbalized understanding. 2. BP improved on repeat check in the office. Goal less than 130/80 mm Hg. Monitor BP on routine basis. Call with readings. Continue consistent cardiovascular exercise, weight loss, medication compliance, and low-sodium diet. -continue losartan 100 mg daily, amlodipine 5 mg daily, hydrochlorothiazide 25 mg daily. 3. Lipids personally reviewed in office LDL 73, fair control although goal LDL<70 if CAD discovered. Continue Simvastatin 20mg qhs and lifestyle modification. Remains on Fenofibrate 160mg daily. 4. DM managed by PCP. Metformin, glipizide XL. 5. Discussed cardiovascular risks associated with marijuana use. Patient verbalized understanding. Counseled to avoid. All questions answered to her satisfaction. Patient verbalized understanding. Notify the office immediately with new questions or concerns. -12 lead EKG today personally reviewed and discussed sinus rhythm, poor R progression, ST abnormality consider ischemia inferolateral leads, abnormal EKG 69 beats per minute OH interval 146 milliseconds QRS 108 milliseconds QT corrected 443 milliseconds Over 50% of this visit counseling Chest pain, HTN, lipids, medications, lifestyle modification. Follow up in the office 1 month or sooner as needed. Thank you for allowing me the privilege of participating in the care this very pleasant patient. Please do not hesitate to contact me with any additional questions or concerns. DOMINGO Hill is a 70 y.o. female with a PMHx of hypertension, diabetes mellitus, and dyslipidemia seen in very kind referral by Tanya Jane MD for my opinion regarding recurrent chest pain. 07/05/21 Initial visit: She notes had CP recently tightness L chest no radiation no SOB, diaphoresis, N/V while seated watching TV but during Hur[place] and brother lives in [place] so was stressed about that and they [...] cath, stress test 2 years ago at [facility] she recalls was ok. She admits she sleeps poorly unaware of snoring, apnea or known h/o LELAND. NoDVT/PE, CVA, CHF, bleeding complications. Sees Rheum at [facility]. Sxs are not assoc with meals. MEDICAL HISTORY Past Medical History: Diagnosis Date [...] in her sister. MEDICATIONS HOME MEDICATIONS : adalimumab (HUMIRA, CF, SYRINGE) 40 mg/0.4 mL syringe kit amLODIPine (NORVASC) 5 mg tablet ergocalciferol (VITAMIN D) 50,000 unit capsule fenofibrate (TRIGLIDE) 160 mg tablet glipiZIDE XL (GLUCOTROL XL) 10 mg 24 hr tablet hydroCHLOROthiazide (HYDRODIURIL) 25 mg tablet levothyroxine (SYNTHROID) 75 mcg tablet losartan (COZAAR) 100 mg tablet meloxicam (MOBIC) 7.5 mg tablet metFORMIN (GLUCOPHAGE) 1,000 mg tablet omeprazole (PriLOSEC) 40 mg capsule potassium chloride ER (potassium chloride ER) 20 mEq CR tablet simvastatin (ZOCOR) 20 mg tablet aspirin (Adult Low Dose Aspirin) 81 mg enteric coated tablet nitroglycerin (NITROSTAT) 0.4 mg SL tablet ALLERGIES Allergies Allergen Reactions ??? Codeine Nausea only and Nausea And Vomiting REVIEW OF SYSTEMS Review of Systems Constitutional: Positive for malaise/fatigue. Negative for decreased appetite, diaphoresis, fever, night sweats, weight gain and weight loss. HENT: Negative for hearing loss and nosebleeds. Eyes: Negative for blurred vision and pain. Cardiovascular: Positive for chest pain and dyspnea on exertion. Negative for claudication, irregular heartbeat, leg swelling, near-syncope, orthopnea, palpitations [...] for environmental allergies. PHYSICAL EXAM Vitals BP 126/74 (BP Location: Right arm, Patient Position: Sitting) Pulse 75 Ht 170.2 cm (5' 7 ) Wt 79 kg (174 lb 1.6 oz) SpO2 96% BMI 27.27 kg/m?? Weight: 79 kg (174 lb 1.6 oz) Height: 170.2 cm (5' 7 ) Body mass index is 27.27 kg/m??. Physical Exam Vitals reviewed. Constitutional: General: [...] Judgment normal. LABS AND OTHER DIAGNOSTIC TESTS I have personally reviewed and analyzed EKG, electronic medical record, and bloodwork/lipids. Armand Kapoor MD, [facility] This note is dictated and transcribed using WebNotes Fluency Direct Software. Programmable Logic Controller Assembler variancesmay occur. Despite proofreading, typographical errors may occur. documented in this encounter Miscellaneous Notes * Addendum Note - Loretta Stack MA - 07/05/2021 1:45 PM CDTAddended by: LORETTA STACK on: 07/05/2021 05:49 PM Modules accepted: Orders * Addendum Note - Shivani Mooney MA - 07/05/2021 1:45 PM CDTAddended by: SHIVANI MOONEY on: 07/15/2021 01:58 PM Modules accepted: Orders documented in this encounter Plan of Treatment Not on file documented as of this encounter Procedures Procedure Name Priority Date/Time Associated Diagnosis Comments POCT LIPID PANEL Routine 07/05/2021 5:48 PM CDT Dyslipidemia associated with type 2 diabetes mellitus (CMS/HCC) (HCC) ECG 12-LEAD Routine 07/05/2021 Chest pain, unspecified type documented in this encounter Results * NM MPI SPECT (Rest and/or Stress) Multiple Studies (07/12/2021 12:10 PM CDT) Anatomical Region Laterality Modality Body N/A Nuclear Medicine 07/12/2021 10:3 0 AM CDT Narrative 07/12/2021 8:14 PM CDT [facility] Cardiology [address] [facility] [address], [place] [address] [address] [facility] [address] [facility] [address], [place] [address] P:[phone] P:[phone] MPI Imaging Report Patient Name: KIANNA HILL : 1950 Study Date: 07/12/2021 10:30:51 AM Gender: F Tech: PAVEL RAMIREZMT Location: [place] Ref.Provider: IZAIAH KAPOOR Height(Cm): 170.2 BSA: Weight(Kg): 79 BMI: 27.27Order Provider: IZAIAH KAPOOR Physician: Referring Physician: Dr. Jane. HCG Physician: Armand Kapoor M.D. Interpreting Physician: Armand Kapoor M.D. Stress Supervision: Tawny Blunt M.D., F.A.C.C. Procedures: Exercise SPECT Report: Myocardial perfusion imaging with Tc99m Sestamibi SPECT at rest and stress post exercise using the Juan Francisco protocol. Indications: Chest Pain, Hypertension, Diabetes, Family Hx CAD, High Cholesterol, Former Smoker, and ACKERMAN. Findings: Procedure: One day rest/stress protocol was used. Tc99m Sestamibi injected IV at rest was 10.3 millicuries. 30.9 millicuries of Tc99m Sestamibi injected IV at peak stress. Exercise stress related symptoms include chest pain/discomfort/tightness 4/10 and shortness of breath. Symptoms were resolved with rest. Baseline heart rate was 78 BPM. Peak heart rate was 146 BPM. Max projected heart rate was 152. Percent predicted max heart rate achieved was 96 %. Exercise Time 4:10 min. Baseline blood pressure was 182/92 mmHg. Peak blood pressure 210/102 mmHg. Termination: Fatigue. Chest pain. Dyspnea. Exercise Tolerance: Fair for patient's age. Resting ECG: Normal sinus rhythm. Nonspecific ST-T abnormalities. Post EC mm or less upsloping inf/lat ST depression. Findings are borderline/equivocal for ischemia. Arrhythmia: No arrhythmias seen. Perfusion Findings: Normal perfusion imaging. Technical quality of study is excellent. Prone imaging was not performed. Left ventricle cavity size at rest is normal. Left ventricle cavity size with stress is unchanged. A TID of 0.83 was automatically calculated. LV Function: There is hyperdynamic global left ventricular systolic function. Left Ventricular Ejection Fraction is 75 %. Conclusions: Myocardial perfusion imaging is normal. 1 mm or less upsloping inf/lat ST depression. Findings are borderline/equivocal for ischemia. There is hyperdynamic global left ventricular systolic function. Left Ventricular Ejection Fraction is 75 %. 4/10 chest pain in early recovery. Resting hypertension, 182/92 mmHg. Hypertensive BP response, 210/102 mmHg. Electronically Signed By: Armand Kapoor MD 2021-07-12 16:13:04 CDT Electronically Signed By: Tawny Blunt MD, [facility] 2021-07-12 20:14:30 CDT Procedure Note Tawny Blunt MD - 07/12/2021 [facility] Cardiology [address] [facility] [address], [place] [address] [address] [facility] [address] [address] P:[phone] P:[phone] MPI Imaging Report Patient Name: KIANNA HILLPatient ID: [id number] : [id number] Date: 07/12/2021 10:30:51 AM Gender: FAccession #: [id number] [facility] [place] Ref.Provider: Rebel KAPOOR(Cm): 170.2 BSA: Weight(Kg): 79 BMI: 27.27Order Provider: IZAIAH KAPOOR Physician: Referring Physician: Dr. Jane. HCG Physician: Armand Kapoor M.D. Interpreting Physician: Armand Kapoor M.D. Stress Supervision: Tawny Blunt M.D., .A.C.. Procedures: Exercise SPECT Report: Myocardial perfusion imaging with Tc99m Sestamibi SPECT at rest and stresspost exercise using the Juan Francisco protocol. Indications: Chest Pain, Hypertension, Diabetes, Family Hx CAD, High Cholesterol,Former Smoker, and ACKERMAN. Findings: Procedure: One day rest/stress protocol was used. Tc99m Sestamibi injected IV at restwas 10.3 millicuries. 30.9 millicuries of Tc99m Sestamibi injected IV at peakstress. Exercise stress related symptoms include chest pain/discomfort/tightness 4/10 andshortness of breath. Symptoms were resolved with rest. Baseline heart rate was 78 BPM.Peak heart rate was 146 BPM. Max projected heart rate was 152. Percent predicted max heartrate achieved was 96 %. Exercise Time 4:10 min. Baseline blood pressure was 182/92 mmHg.Peak blood pressure 210/102 mmHg. Termination: Fatigue. Chest pain. Dyspnea. Exercise Tolerance: Fair for patient's age. Resting ECG: Normal sinus rhythm. Nonspecific ST-T abnormalities. Post EC mm or less upsloping inf/lat ST depression. Findings areborderline/equivocal for ischemia. Arrhythmia: No arrhythmias seen. Perfusion Findings: Normal perfusion imaging. Technical quality of study is excellent. Proneimaging was not performed. Left ventricle cavity size at rest is normal. Left ventriclecavity size with stress is unchanged. A TID of 0.83 was automatically calculated. LV Function: There is hyperdynamic global left ventricular systolic function. LeftVentricular Ejection Fraction is 75 %. Conclusions: Myocardial perfusion imaging is normal. 1 mm or less upsloping inf/lat ST depression. Findings areborderline/equivocal for ischemia. There is hyperdynamic global left ventricular systolic function. LeftVentricular Ejection Fraction is 75 %. 4/10 chest pain in early recovery. Resting hypertension, 182/92 mmHg. Hypertensive BP response, 210/102mmHg. Electronically Signed By: Armand Kapoor MD 2021-07-12 16:13:04 CDT Electronically Signed By: Tawny Blunt MD, [facility] 2021-07-12 20:14:30 CDT us Izaiah Kapoor MD IMG NM PROCEDURES Final Result * POCT lipid panel (07/05/2021 5:48 PM CDT) Cholesterol, POC 145 mg/dL Comment:GLU = 338 HDL, POC 41 mg/dL Triglycerides, POC 158 mg/dL LDL Cholesterol POC 73 mg/dL Chol/HDL Ratio, POC 3.6 Non-HDL Cholesterol, POC 104 mg/dL Cholesterol Total, POC 145 mg/dL Capillary blood 07/05/2021 5 :48 PM CDT Result Narciso Kapoor MD POINT OF CARE TEST ORDER BLESSING Final Result * ECG 12 lead (07/05/2021) us Izaiah Kapoor MD ECG ORDERABLES Final Re sult documented in this encounter Visit Diagnoses Diagnosis Stable angina (HCC)- Primary Other and unspecified angina pectoris Hypertension associated with diabetes (HCC) Unspecified essential hypertension Dyslipidemia associated with type 2 diabetes mellitus (HCC) Rheumatoid arthritis, involving unspecified site, unspecified whether rheumatoid factor present (HCC) Chronic fatigue Other malaise and fatigue Chest pain, unspecified type History of tobacco abuse Marijuana use Dyslipidemia associated with type 2 diabetes mellitus (HCC) Hypertension associated with diabetes (HCC) Unspecified essential hypertension Rheumatoid arthritis, involving unspecified site, unspecified whether rheumatoid factor present (HCC) Chronic fatigue Other malaise and fatigue Stable angina (HCC) Other and unspecified angina pectoris documented in this encounter Historical Medications * This list may reflect changes made after this encounter. simvastatin (ZOCOR) 20 mg tablet Take 1 tablet (20 mg total) by mouth nightly 04/10/2021 potassium chloride ER (KLOR-CON) 20 mEq CR tablet potassium chloride ER 20 mEq tablet,extended release TAKE 1 TABLET BY MOUTH TWICE DAILY 07/22/2020 omeprazole (PriLOSEC) 40 mg capsule Take by mouth daily 06/16/2021 metFORMIN (GLUCOPHAGE) 1,000 mg tablet Take 1 tablet (1,000 mg total) by mouth every 12 (twelve) hours 06/29/2021 losartan (COZAAR) 100 mg tablet losartan 100 mg tablet TAKE 1 TABLET BY MOUTH EVERY DAY 03/21/2018 levothyroxine (SYNTHROID) 75 mcg tablet levothyroxine 75 mcg tablet TAKE 1 TABLET BY MOUTH EVERY DAY 08/02/2016 hydroCHLOROthia zide (HYDRODIURIL) 25 mg tablet Take 1 tablet (25 mg total) by mouth daily 05/17/2021 glipiZIDE XL (GLUCOTROL XL) 10 mg 24 hr tablet Take 2 tablets (20 mg total) by mouth daily 06/16/2021 fenofibrate (TRIGLIDE) 160 mg tablet Take 1 tablet (160 mg total) by mouth nightly 04/07/2021 ergocalciferol (VITAMIN D) 50,000 unit capsule ergocalciferol (vitamin D2) 1,250 mcg (50,000 unit) capsule TAKE 1 CAPSULE BY MOUTH EVERY WEEK amLODIPine (NORVASC) 5 mg tablet Take 1 tablet (5 mg total) by mouth daily 06/29/2021 meloxicam (MOBIC) 7.5 mg tablet meloxicam 7.5 mg tablet TAKE 1 TABLET BY MOUTH EVERY DAY NEEDED 10/01/2020 4 adalimumab (HUMIRA, CF, SYRINGE) 40 mg/0.4 mL syringe kit Inject 40 mg under the skin every 2 (two) weeks 05/05/2021 2 added in this encounter Orders Outpatient Referral Count Last Ordered Date Fir st Ordered Date AMB REFERRAL TO CARDIOLOGY 2 07/08/2021 0 07/05/2021 documented in this encounter Care Teams Paddock Judge Relationship Specialty Start Date End Date Tanya Jane MD [address] [place] [address] [place] [id number] PCP - General Family Medicine 07/02/21 09/01/24 documented as of this encounter
--- OUTSIDE RECORDS SUMMARY | 2024-11-09 23:19 | XMS_ITS | Encounter Summary ---
Author Organization [facility] Address [address] [place] [address] Care Team Providers Care Vacuum Forming Machine Operator Name Role Phone Tanya Jane MD Primary Care Provider + Reason for Visit * Diagnostic Imaging (Routine) - Closed Specialty Diagnoses / Procedures Referred By Contac t Referred To Contact Diagnoses Dyslipidemia associated with type 2 diabetes mellitus (HCC) Hypertension associated with diabetes (HCC) Rheumatoid arthritis, involving unspecified site, unspecified whether rheumatoid factor present (HCC) Chronic fatigue Stable angina (HCC) Procedures NM MPI SPECT (Rest and/or Stress) Multiple Studies Gus Kapoor MD Phone: tel: fax: Referral ID Status Reason Start Date Expiration Date Visits Re quested Visits Authorized [id number] Closed 07/07/2021 08/21/2021 1 1 Encounter Details Date Type Department Care Team (Latest Contact Info) Description 07/12/2021 9:15 AM CDT Ancillary Procedure [facility] Cardiology [address] [place] [address] Dyslipidemia associated with type 2 diabetes mellitus (CMS/HCC) (HCC); Hypertension associated with diabetes (HCC); Rheumatoid arthritis, involving unspecified site, unspecified whether rheumatoid factor present (HCC); Chronic fatigue; Stable angina (CMS/HCC) (HCC) Social History Tobacco Use Types Packs/Day Years Used Date Smoking Tobacco: Former Cigarettes Smokeless Tobacco: Never Comments Unknown Sex and Gender Information Value Date Recorded Sex Assigned at Not on file 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 Gender Identity Not on file Sexual Orientation Not on file documented as of this encounter Plan of Treatment Not on file documented as of this encounter Procedures Procedure Name Priority Date/Time Associated Diagnosis Comments NM MPI SPECT (REST AND/OR STRESS) MULTIPLE STUDIES Schedule Routine, Read Routine (OP Routine) 07/12/2021 12:10 PM CDT Dyslipidemia associated with type 2 diabetes mellitus (CMS/HCC) (HCC) Hypertension associated with diabetes (HCC) Rheumatoid arthritis, involving unspecified site, unspecified whether rheumatoid factor present (HCC) Chronic fatigue Stable angina (CMS/HCC) (HCC) documented in this encounter Results * NM MPI SPECT (Rest and/or Stress) Multiple Studies (07/12/2021 12:10 PM CDT) Anatomical Region Laterality Modality Body N/A Nuclear Medicine 07/12/2021 10:3 0 AM CDT Narrative 07/12/2021 8:14 PM CDT [facility] Cardiology [address], [place] [address] [address], [place] [address] P:[phone] P:[phone] MPI Imaging Report Patient Name: KIANNA HILL : 1950 Study Date: 07/12/2021 10:30:51 AM Gender: F Tech: [facility] Location: [place] Ref.Provider: GUS KAPOOR Height(Cm): 170.2 BSA: Weight(Kg): 79 BMI: 27.27Order Provider: GUS KAPOOR Physician: Referring Physician: Dr. Jane. HCG [...] CDT Electronically Signed By: Tawny Blunt MD, [facility] 2021-07-12 20:14:30 CDT Procedure Note Tawny Blunt MD - 07/12/2021 [facility] Cardiology [address], [place] [address] [address], [place] [address] P:[phone] P:[phone] MPI Imaging Report Patient Name: KIANNA HILLPatient ID: [id number] : [id number] Date: 07/12/2021 10:30:51 AM Gender: FAccession #: [id number] Tech: PAVEL RAMIREZHILocation: [place] Ref.Provider: GUS KAPOORHeight(Cm): 170.2 BSA: Weight(Kg): 79 BMI: 27.27Order Provider: GUS KAPOOR Physician: Referring Physician: Dr. Jane. HCG Physician: Armand Kapoor M.D. Interpreting Physician: Armand Kapoor M.D. Stress Supervision: Tawny Blunt M.D., .A.C.C. Procedures: Exercise SPECT Report: Myocardial perfusion imaging [...] Exercise stress related symptoms include chest pain/discomfort/tightness /10 andshortness of breath. Symptoms were resolved with [...] CDT Electronically Signed By: Tawny Blunt MD, [facility] 2021-07-12 20:14:30 CDT [facility] Final Result documented in this encounter Visit Diagnoses Diagnosis Dyslipidemia associated with type 2 diabetes mellitus (HCC) Hypertension associated with diabetes (HCC) Unspecified essential hypertension Rheumatoid arthritis, involving unspecified site, unspecified whether rheumatoid factor present (HCC) Chronic fatigue Other malaise and fatigue Stable angina (HCC) Other and unspecified angina pectoris documented in this encounter Administered Medications Inactive Administered Medications - up to 3 most recent administrations Medication Order MAR Action Action Date Dose Rate Site tc-99m sestamibi unit dose injection 10.3 millicurie 10.3 millicurie, intravenous, Once in imaging, radiopharmaceutical, Starting on Mon07/12/21 at 0956, For 1 dose, Indications: Diagnostic RadiographyIndications:Vilma gnostic Radiography Given 07/12/2021 9:56 AM CDT 10.3 millicuries tc-99m sestamibi unit dose injection 30.9 millicurie 30.9 millicurie, intravenous, Once in imaging, radiopharmaceutical, Starting on Mon07/12/21 at 1211, For 1 dose, Indications: Diagnostic RadiographyIndications:Vilma gnostic Radiography Given 07/12/2021 12:11 PM CDT 30.9 millicuries documented in this encounter Care Teams Vacuum Forming Machine Operator Relationship Specialty Start Date End Date Tanya Jane MD [address] [address] PCP - General Family Medicine 07/02/21 09/01/24 documented as of this encounter
--- OUTSIDE RECORDS SUMMARY | 2024-11-09 23:19 | XMS_ITS | Encounter Summary ---
Author Organization [facility] Address [address] [place] [address] Care Team Providers Care Security Supervisor Name Role Phone Tanya Jane MD Primary Care Provider + Encounter Details Date Type Department Care Team (Late st Contact Info) Description 07/02/2021 Orders Only [facility] Cardiology [address] [place] [address] ProviderGio MD [address] [place] [address] Social History Tobacco Use Types Packs/Day Years Used Date Smoking Tobacco: Never Assessed Comments Unknown Sex and Gender Information Value Date Recorded Sex Assigned at Not on file 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 Gender Identity Not on file Sexual Orientation Not on file documented as of this encounter Plan of Treatment Not on file documented as of this encounter Procedures Procedure Name Priority Date/Time Associated Diagnosis Comments CARDIOLOGY DOCUMENT SCAN Routine 07/02/2021 documented in this encounter Results * SCAN - CARDIOLOGY (07/02/2021) Anatomical Region Laterality Modality Other Historical Provider [facility] SAVAGE MONTERO Final Result documented in this encounter Visit Diagnoses Not on filedocumented in this encounter Care Teams Security Supervisor Relationship Specialty Start Date End Date Tanya Jane MD [address] [place] [address] [address] [place] [address] PCP - General Family Medicine 07/02/21 09/01/24 documented as of this encounter
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
--- OUTSIDE RECORDS SUMMARY | 2024-11-09 23:20 | XMS_ITS | Clinical Summary ---
Author Organization [facility] Facility Address [address] [address] Care Team Providers Care Building Official Name Role Phone Eliana Duncan APRN Primary Care Provider [phone] Encounters Date Type Department Care Team Description 09/02/2024 Documentation Only [place] [facility], [address] [address] Jono Osuna DO from Last 3 Months Social History Tobacco Use Types Packs/Day Years Used Date Smoking Tobacco: Never Assessed Comments Unknown Sex and Gender Information Value Date Recorded Sex Assigned at Not on file Legal Sex Female 4:30 PM EST Gender Identity Not on file Sexual Orientation Not on file Plan of Treatment Upcoming Encounters Date Type Department Care Team (Late st Contact Info) Description 11/19/2024 3:00 PM WEB MARKETING COORDINATOR Office Visit [place] [facility], [facility] [address] [place] [phone] Jono Osuna DO [address] [place] [address] Health Maintenance Due Date Last Done Comments Breast Cancer Screening 1950 Colorectal Cancer Screening: Annual FOBT 2001 Colorectal Cancer Screening: Colonoscopy 2001 Colorectal Cancer Screening: Sigmoidoscopy 2001 Hepatitis B Vaccine (1 of 3 - Risk 3-dose series) 2012 Diabetes: Hemoglobin A1C 09/04/2024 Diabetes: Ophthalmology Exam 09/04/2024 Diabetes: Pedal Pulse Checked 09/04/2024 Diabetes: Sensory Foot Exam 09/04/2024 Diabetes: Visual Foot Exam 09/04/2024 Pneumococcal Vaccine: 65+ Years Completed , 08/24/2017 Influenza Vaccine Completed 08/27/2024, , 07/21/2020, Additional history exists Insurance [facility] [address] MEDICARE Care Teams Building Official Relationship Specialty Start Date End Date Eliana Duncan APRN [facility] Internal Med [facility] [address] [facility] [place] [address] PCP - General 09/02/24
--- OUTSIDE RECORDS SUMMARY | 2024-11-09 23:20 | XMS_ITS | Encounter Summary ---
Author Organization [facility] [employer] [facility] Social Media [employer] [facility] Address [address] [place], [place] [address] [place] [address] Phone Care Team Providers Care Grape Grower Name Role Phone Eliana Duncan APRN Primary Care Provider [phone] Encounter Details Date Type Department Care Team (Late Contact Info) Description 09/02/2024 Documentation [facility] [place] [facility] [address] [place] [address] Jono Osuna DO [address] [facility] [address] [place] [address] Social History Tobacco Use Types Packs/Day Years [...] st Contact Info) Description 11/19/2024 3:00 PM TRIBUNAL MEMBER Office Visit [place] [employer] [address] [facility] [address] [place] [address] Jono Osuna DO [address] [facility] [address] [place] [address] documented as of this encounter Visit Diagnoses Not on filedocumented in this encounter Care Teams Grape Grower Relationship Specialty Start Date End Date Eliana Duncan APRN [facility] Internal Med [address] [facility] [place] [address] PCP - General 09/02/24 documented as of this encounter
[2024-11-10 06:00] VITALS: BP 144/76; PULSE 75; RESP 18; TEMP 36.8; O2SAT 100
[2024-11-10] MEDS: LEVOTHYROXINE SODIUM 75 MCG TABLET PO (06:05)
[2024-11-10 06:43] LABS: Alanine Aminotransferase 21 U/L (6-35); Albumin Level 3.5 g/dL (3.5-5.1); Alkaline Phosphatase 126 U/L (38-126); Anion Gap 8 mmol/L (4-12); Aspartate Amino Transferase 16 U/L (14-36); Bilirubin,Total 0.5 mg/dL (0.2-1.3); Blood Urea Nitrogen 11 mg/dL (7-17); Calcium 8.6 mg/dL (8.4-10.2); Carbon Dioxide 21 mmol/L (22-30); Chloride 103 mmol/L (98-107); Estimated CRCL calculation 52 ml/min; Estimated Glomerular Filt Rate > 60; Glucose 130 mg/dL (65-110); Potassium 4.3 mmol/L (3.4-5.0); Sodium 132 mmol/L (137-145)
[2024-11-10 06:54] LABS: Hematocrit 28.6 % (37.0-47.0); Hemoglobin 8.4 g/dL (12.0-15.0); Mean Corpuscular HGB Conc 29.4 g/dl (32-36); Mean Corpuscular Hemoglobin 19.6 pg (26-34); Mean Corpuscular Volume 66.7 fl (80-100); Mean Platelet Volume 9.8 fl (7.4-10.4); Platelet Count Result 314 k/mm3 (150-375); Red Blood Count 4.29 M/mm3 (4.2-5.4); Red Cell Distribution Width 22.1 % (11.5-14.5); White Blood Count 10.5 K/mm3 (4.5-10.0)
[2024-11-10 07:36] LABS: Glucose Point of Care 173 mg/dl (65-105)
--- NOTE | 2024-11-10 08:35 | P.PNIM_ITS ---
Progress Note: A&P Assessment and Plan (1) Acute hyponatremia: Code(s): E87.1 - Hypo-osmolality and hyponatremia Status: Acute Assessment and Plan: Resolved Admission sodium level of 116. Nephrology consulted Presumed etiology hydrochlorothiazide Free water restriction (2) Body aches: Code(s): R52 - Pain, unspecified Status: Acute Assessment and Plan: Cont. current, intermittently controlled. (3) Leukocytosis: Code(s): D72.829 - Elevated white blood cell count, unspecified Status: Acute Assessment and Plan: Resolved 33 KA on admission. Urinalysis with 6-10 WBC in urine Urine culture mixed genital yaw Started on ceftriaxone on admission is 11/03/2024 (4) Hypertension: Code(s): I10 - Essential (primary) hypertension Status: Chronic Assessment and Plan: - Continue home med (5) Diabetes: Code(s): E11.9 - Type 2 diabetes mellitus without complications Status: Acute Assessment and Plan: - Cont. Accu-Cheks a.c. HS with corrective insulin. - Diabetic diet. - Holding glipizide, metformin. (6) Arthritis: Code(s): M19.90 - Unspecified osteoarthritis, unspecified site Status: Acute Assessment and Plan: - Encouraged to request prns when having pain. Stable. Continue hydrochloroquine and Arava (7) Hypothyroidism: Code(s): E03.9 - Hypothyroidism, unspecified Status: Acute Assessment and Plan: TSH 1.7, Continue Synthroid (8) Microcytic anemia: Code(s): D50.9 - Iron deficiency anemia, unspecified Status: Acute Assessment and Plan: - Anemic on presentation with hgb 8.2, steadily downtrending, to 6.7. Needing transfusion - check ferritin, tibc/iron/sat and fobt. - GI Following - Colonoscopy on 11/11 - Hold lovenox. H&H remained stable Plan DVT prophylaxis SCDs Code status full code Subjective Date/time seen: 11/10/24 08:35 Interval history: Will undergo Colonoscopy tomorrow.no acute events overnight Review of Systems Review of Systems: 12 systems were reviewed and are negativ e except for as per HPI. All systems reviewed & are unremarkable except as noted in HPI and below Exam Narrative: GENERAL APPEARANCE: Appears to be in no acute distress. HEAD: normocephalic atraumatic EYES: PERRL, EOMI. Vision grossly intact. ENT: Hearing grossly intact, no nasal discharge NECK: Neck supple, trachea midline. CARDIAC: Normal S1/S2. Rhythm is regular. No murmurs, rubs, or gallops. No cyanosis or pallor. Extremities are warm and well perfused. LUNGS: Clear to auscultation without rales, rhonchi, wheezing or diminished breath sounds. Respirations even and unlabored. ABDOMEN: BS positive x 4 quadrants. Soft, nondistended, nontender. No guarding or rebound. MSK: No joint tenderness/swelling, fair strength in all extremities. PERIPHERAL VASCULAR: Peripheral pulses palpable. Normal perfusion, cap refill <2 seconds. No edema. NEURO: Follows commands. No focal deficits. SKIN: [place] without lesions or eruptions. PSYCH: Stable, no paranoia or delusional thinking. Objective Data Vital Signs Vital Signs: Vital Signs - 24 hr 11/09/24 14:00 11/09/24 20:00 11/09/24 22:00 Temperature 98.3 F 98 F Pulse Rate 93 93 Respiratory Rate 24 H 16 Blood Pressure 116/60 139/71 Pulse Oximetry 100 99 Oxygen Delivery Room Air 11/10/24 06:00 Temperature 98.2 F Pulse Rate 75 Respiratory Rate 18 Blood Pressure 144/76 H Pulse Oximetry 100 Oxygen Delivery Intake/Output Intake/Output: Intake & Output 11/07/24 11/08/24 11/09/24 11/10/24 23:59 23:59 23:59 23:59 Intake Total 720 920 950 200 Balance 720 920 950 200 Meds/Results Medications: Active Medications Generic Name Dose Route Start Last Admin Trade Name Freq PRN Reason Stop Dose Admin Acetaminophen 650 mg 11/02/24 14:02 Acetaminophen 325 Mg Tablet PO Q4H PRN Mild Pain (1-3) or Fever Hydrocodone Bitart/Acetaminophen 1 tab 11/02/24 14:29 11/06/24 21:47 Hydrocodone/Acetaminophen (*Crx) 5-325 Mg Tablet PO 1 tab Q4H PRN Administration Pain Rated 4-6 Dextrose 12.5 gm 11/03/24 00:32 Dextrose 50% 25 Gm/50 Ml Syringe IV PUSH PRN PRN Hypoglycemia Protocol Fenofibrate 160 mg 11/03/24 21:00 11/09/24 20:55 Fenofibrate 160 Mg Tablet PO 160 mg QHS ROXANNE Administration Glucagon 1 mg 11/03/24 00:32 Glucagon For Inj 1 Mg Vial IM PRN PRN Hypoglycemia Protocol Glucose 15 gm 11/03/24 00:32 Glucose Oral Gel 15 Gm Of Glucse In 37.5 Gm Tube PO PRN PRN Hypoglycemia Protocol Hydralazine HCl 10 mg 11/08/24 09:00 11/09/24 20:55 Hydralazine 10 Mg Tablet PO 10 mg QID ROXANNE Administration Hydroxychloroquine Sulfate 300 mg 11/03/24 09:00 11/09/24 18:08 Hydroxychloroquine Sulfate 200 Mg Tablet PO 300 mg BIDWM ROXANNE Administration Dextrose 1,000 mls @ 100 mls/hr 11/03/24 00:32 Dextrose 5% 1,000 Ml IVPB PRN PRN Hypoglycemia Protocol Insulin Aspart 2 - 5 units 11/03/24 08:00 11/10/24 08:04 Insulin Aspart (*Bkc) 100 Units/Ml SUB-Q Not Given TIDWM [facility] Protocol Insulin Aspart 1 - 2 units 11/03/24 21:00 11/09/24 20:56 Insulin Aspart (*Bkc) 100 Units/Ml SUB-Q 1 units HS ROXANNE Administration Protocol Insulin Glargine 11 units 11/03/24 21:00 11/09/24 20:56 Insulin Glargine (*Bkc) 100 Units/Ml 0.15 units/kg (11 units) 11 units SUB-Q Administration [facility] Isosorbide Mononitrate 30 mg 11/03/24 09:00 11/09/24 09:02 Isosorbide Mononitrate 30 Mg Tab.Er.24h PO 30 mg DAILY ROXANNE Administration Leflunomide 20 mg 11/03/24 09:00 11/09/24 09:01 Leflunomide 20 Mg Tablet PO 20 mg DAILY ROXANNE Administration Levothyroxine Sodium 75 mcg 11/03/24 06:30 11/10/24 06:05 Levothyroxine Sodium 75 Mcg Tablet PO 75 mcg DAILY@0630 ROXANNE Administration Losartan Potassium 100 mg 11/03/24 09:00 11/09/24 09:02 Losartan Potassium 100 Mg Tablet PO 100 mg DAILY ROXANNE Administration Morphine Sulfate 2 mg 11/02/24 14:29 11/05/24 01:10 Morphine Sulfate (*Crx) 2 Mg/Ml Inj IV PUSH 2 mg Q2H PRN Administration Pain Rated 7-10 Nifedipine 60 mg 11/09/24 09:00 11/09/24 09:01 Nifedipine 30 Mg Tab.Er.24 PO 60 mg QAM ROXANNE Administration Ondansetron HCl 4 mg 11/04/24 06:03 Ondansetron Inj 4 Mg/2 Ml Vial IV PUSH Q6H PRN Nausea And Vomiting Pantoprazole Sodium 40 mg 11/03/24 09:00 11/09/24 20:55 Pantoprazole 40 Mg Tablet PO 40 mg Q12HR ROXANNE Administration Polyethylene Glycol 17 gm 11/06/24 12:10 11/09/24 08:59 Polyethylene Glycol 3350 17 Gm Powd.Pack PO Not Given QAM [facility] Polyethylene Glycol 119 gm 11/10/24 20:00 Polyethylene Glycol 3350 238 Gm Bottle PO 11/11/24 05:01 BID@0500,2000 [facility] Polysaccharide Iron Complex 150 mg 11/03/24 17:00 11/09/24 18:07 Polysaccharide Iron Complex 150 Mg Capsule PO 150 mg BIDWM ROXANNE Administration Potassium Chloride 20 meq 11/03/24 09:00 11/09/24 18:07 Potassium Chloride 20 Meq Er Tablet PO 20 meq BID ROXANNE Administration Simvastatin 20 mg 11/03/24 09:00 11/09/24 09:01 Simvastatin 20 Mg Tablet PO 20 mg DAILY ROXANNE Administration Radiology Results: ITS Impressions Chest X-Ray 11/02/24 11:23 IMPRESSION: Bilateral hyperinflation suggesting COPD No active cardiopulmonary disease Aortic calcification and tortuosity Osteopenia Bilateral glenohumeral osteoarthritis Labs Labs: Laboratory Results - last 24 hr 11/09/24 11/09/24 11/09/24 12:04 16:58 20:43 WBC RBC Hgb Hct MCV MCH MCHC RDW Plt Count MPV Sodium Potassium Chloride Carbon Dioxide Anion Gap BUN Creatinine Estim Creat Clear Calc Estimated GFR Glucose POC Capillary Glucose 245 H 218 H 255 H Calcium Total Bilirubin AST ALT Alkaline Phosphatase Total Protein Albumin 11/10/24 11/10/24 06:06 07:32 WBC 10.5 H RBC 4.29 Hgb 8.4 L Hct 28.6 L MCV 66.7 L MCH 19.6 L MCHC 29.4 L RDW 22.1 H Plt Count 314 MPV 9.8 Sodium 132 L Potassium 4.3 Chloride 103 Carbon Dioxide 21 L Anion Gap 8 BUN 11 Creatinine 0.83 Estim Creat Clear Calc 52 Estimated GFR > 60 Glucose 130 H POC Capillary Glucose 173 H Calcium 8.6 Total Bilirubin 0.5 AST 16 ALT 21 Alkaline Phosphatase 126 Total Protein 6.0 L Albumin 3.5 Quality VTE Prophylaxis VTE prophylaxis: mechanical ordered Hospitalist MIPS Advance Care Plan I have confirmed that the patient's Advanced Care Plan is present, code status is documented, or surrogate decision maker is listed in patient medical record.: Yes Medication Reconciliation I have utilized all available resources to obtain, update and review the patients current medications (includes all prescriptions, OTC, herbals, cannabis, and nutritional supplements).: Yes
[2024-11-10] MEDS: PANTOPRAZOLE 40 MG TABLET PO ×2 (08:40→20:18)
[2024-11-10] MEDS: hydrALAZINE 10 MG TABLET PO ×4 (08:40→20:18)
[2024-11-10] MEDS: LOSARTAN POTASSIUM 100 MG TABLET PO (08:40)
[2024-11-10] MEDS: ISOSORBIDE MONONITRATE 30 MG TAB.ER.24H PO (08:40)
[2024-11-10] MEDS: POTASSIUM CHLORIDE 20 MEQ ER TABLET PO ×2 (08:40→18:11)
[2024-11-10] MEDS: NIFEdipine 30 MG TAB.ER.24 60 MG PO (08:40)
[2024-11-10] MEDS: SIMVASTATIN 20 MG TABLET PO (08:40)
[2024-11-10] MEDS: LEFLUNOMIDE 20 MG TABLET PO (08:40)
[2024-11-10] MEDS: HYDROXYCHLOROQUINE SULFATE 200 MG TABLET 300 MG PO ×2 (08:41→18:12)
[2024-11-10] MEDS: POLYSACCHARIDE IRON COMPLEX 150 MG CAPSULE PO ×2 (08:41→18:11)
--- NOTE | 2024-11-10 09:38 | P.PNNP_ITS ---
Progress Note: A&P Assessment and Plan (1) Hyponatremia: Code(s): E87.1 - Hypo-osmolality and hyponatremia Status: Acute Assessment and Plan: * slow improvement noted (if not back to baseline) * acute on chronic * from review of outside records, baseline sodium runs around 129 - 136mmol/L since 2019 * last blood work in August 2024 -- sdoium was 129mmol/L * appears relatively asymptomatic * risk factors for low sodium: * prerenal factors (poor oral intake) * HCTZ use * chronic pain * PPI use * known thyroid disease * evaluation to date noted: * TSH and cortisol okay * no evidence of [employer] or lung disease * SPEP/UPEP and serum/urine osmo pending * urine electrolytes prerenal * Sodium level is 132 today. * She is on fluid restriction. With her chronic hyponatremia, she will need to continue fluid restriction chronically. (2) Hypertension: Code(s): I10 - Essential (primary) hypertension Status: Chronic Assessment and Plan: * Blood pressure is better. * Continue nifedipine along with the other medications. (3) Diabetes: Code(s): E11.9 - Type 2 diabetes mellitus without complications Status: Acute Assessment and Plan: * follow accu-cheks * glycemic control per hospitalist Subjective Date/time seen: 11/10/24 09:38 Interval history: Patient is alert. She feels good. Exam Narrative: General: elderly but WD/WN female in NAD Heart: normal S1 and S2; no rub Or gallop Lungs: clear bilaterally Abdomen: soft, nontender, nondistended, positive bowel sounds Extremities: no edema or sciatic Skin: no rash Objective Data Vital Signs Vital Signs: Vital Signs - 24 hr 11/09/24 14:00 11/09/24 20:00 11/09/24 22:00 Temperature 98.3 F 98 F Pulse Rate 93 93 Respiratory Rate 24 H 16 Blood Pressure 116/60 139/71 Pulse Oximetry 100 99 Oxygen Delivery Room Air 11/10/24 06:00 Temperature 98.2 F Pulse Rate 75 Respiratory Rate 18 Blood Pressure 144/76 H Pulse Oximetry 100 Oxygen Delivery Intake/Output Intake/Output: Intake & Output 11/07/24 11/08/24 11/09/24 11/10/24 23:59 23:59 23:59 23:59 Intake Total 720 920 950 440 Balance 720 920 950 440 Meds/Results Medications: Active Medications Generic Name Dose Route Start Last Admin Trade Name Freq PRN Reason Stop Dose Admin Acetaminophen 650 mg 11/02/24 14:02 Acetaminophen 325 Mg Tablet PO Q4H PRN Mild Pain (1-3) or Fever Hydrocodone Bitart/Acetaminophen 1 tab 11/02/24 14:29 11/06/24 21:47 Hydrocodone/Acetaminophen (*Crx) 5-325 Mg Tablet PO 1 tab Q4H PRN Administration Pain Rated 4-6 Dextrose 12.5 gm 11/03/24 00:32 Dextrose 50% 25 Gm/50 Ml Syringe IV PUSH PRN PRN Hypoglycemia Protocol Fenofibrate 160 mg 11/03/24 21:00 11/09/24 20:55 Fenofibrate 160 Mg Tablet PO 160 mg QHS ROXANNE Administration Glucagon 1 mg 11/03/24 00:32 Glucagon For Inj 1 Mg Vial IM PRN PRN Hypoglycemia Protocol Glucose 15 gm 11/03/24 00:32 Glucose Oral Gel 15 Gm Of Glucse In 37.5 Gm Tube PO PRN PRN Hypoglycemia Protocol Hydralazine HCl 10 mg 11/08/24 09:00 11/10/24 08:40 Hydralazine 10 Mg Tablet PO 10 mg QID ROXANNE Administration Hydroxychloroquine Sulfate 300 mg 11/03/24 09:00 11/10/24 08:41 Hydroxychloroquine Sulfate 200 Mg Tablet PO 300 mg BIDWM ROXANNE Administration Dextrose 1,000 mls @ 100 mls/hr 11/03/24 00:32 Dextrose 5% 1,000 Ml IVPB PRN PRN Hypoglycemia Protocol Insulin Aspart 2 - 5 units 11/03/24 08:00 11/10/24 08:04 Insulin Aspart (*Bkc) 100 Units/Ml SUB-Q Not Given TIDWM [facility] Protocol Insulin Aspart 1 - 2 units 11/03/24 21:00 11/09/24 20:56 Insulin Aspart (*Bkc) 100 Units/Ml SUB-Q 1 units HS [facility] Administration Protocol Insulin Glargine 11 units 11/03/24 21:00 11/09/24 20:56 Insulin Glargine (*Bkc) 100 Units/Ml 0.15 units/kg (11 units) 11 units SUB-Q Administration [facility] Isosorbide Mononitrate 30 mg 11/03/24 09:00 11/10/24 08:40 Isosorbide Mononitrate 30 Mg Tab.Er.24h PO 30 mg DAILY ROXANNE Administration Leflunomide 20 mg 11/03/24 09:00 11/10/24 08:40 Leflunomide 20 Mg Tablet PO 20 mg DAILY ROXANNE Administration Levothyroxine Sodium 75 mcg 11/03/24 06:30 11/10/24 06:05 Levothyroxine Sodium 75 Mcg Tablet PO 75 mcg DAILY@0630 ROXANNE Administration Losartan Potassium 100 mg 11/03/24 09:00 11/10/24 08:40 Losartan Potassium 100 Mg Tablet PO 100 mg DAILY ROXANNE Administration Morphine Sulfate 2 mg 11/02/24 14:29 11/05/24 01:10 Morphine Sulfate (*Crx) 2 Mg/Ml Inj IV PUSH 2 mg Q2H PRN Administration Pain Rated 7-10 Nifedipine 60 mg 11/09/24 09:00 11/10/24 08:40 Nifedipine 30 Mg Tab.Er.24 PO 60 mg QAM [facility] Administration Ondansetron HCl 4 mg 11/04/24 06:03 Ondansetron Inj 4 Mg/2 Ml Vial IV PUSH Q6H PRN Nausea And Vomiting Pantoprazole Sodium 40 mg 11/03/24 09:00 11/10/24 08:40 Pantoprazole 40 Mg Tablet PO 40 mg Q12HR ROXANNE Administration Polyethylene Glycol 17 gm 11/06/24 12:10 11/10/24 08:40 Polyethylene Glycol 3350 17 Gm Powd.Pack PO Not Given QAM [facility] Polyethylene Glycol 119 gm 11/10/24 20:00 Polyethylene Glycol 3350 238 Gm Bottle PO 11/11/24 05:01 BID@0500,2000 [facility] Polysaccharide Iron Complex 150 mg 11/03/24 17:00 11/10/24 08:41 Polysaccharide Iron Complex 150 Mg Capsule PO 150 mg BIDWM [facility] Administration Potassium Chloride 20 meq 11/03/24 09:00 11/10/24 08:40 Potassium Chloride 20 Meq Er Tablet PO 20 meq BID ROXANNE Administration Simvastatin 20 mg 11/03/24 09:00 11/10/24 08:40 Simvastatin 20 Mg Tablet PO 20 mg DAILY ROXANNE Administration Radiology Results: ITS Impressions Chest X-Ray 11/02/24 11:23 IMPRESSION: Bilateral hyperinflation suggesting COPD No active cardiopulmonary disease Aortic calcification and tortuosity Osteopenia Bilateral glenohumeral osteoarthritis Labs Labs: Laboratory Results - last 24 hr 11/09/24 11/09/24 11/09/24 12:04 16:58 20:43 WBC RBC Hgb Hct MCV MCH MCHC RDW Plt Count MPV Sodium Potassium Chloride Carbon Dioxide Anion Gap BUN Creatinine Estim Creat Clear Calc Estimated GFR Glucose POC Capillary Glucose 245 H 218 H 255 H Calcium Total Bilirubin AST ALT Alkaline Phosphatase Total Protein Albumin 11/10/24 11/10/24 06:06 07:32 WBC 10.5 H RBC 4.29 Hgb 8.4 L Hct 28.6 L MCV 66.7 L MCH 19.6 L MCHC 29.4 L RDW 22.1 H Plt Count 314 MPV 9.8 Sodium 132 L Potassium 4.3 Chloride 103 Carbon Dioxide 21 L Anion Gap 8 BUN 11 Creatinine 0.83 Estim Creat Clear Calc 52 Estimated GFR > 60 Glucose 130 H POC Capillary Glucose 173 H Calcium 8.6 Total Bilirubin 0.5 AST 16 ALT 21 Alkaline Phosphatase 126 Total Protein 6.0 L Albumin 3.5
[2024-11-10 11:53] LABS: Glucose Point of Care 232 mg/dl (65-105)
[2024-11-10] MEDS: INSULIN ASPART (*BKC) 100 UNITS/ML SUB-Q (13:11)
[2024-11-10 14:00] VITALS: BP 138/72; PULSE 90; RESP 20; TEMP 36.6; O2SAT 100
--- NOTE | 2024-11-10 14:31 | WPDGIPROGNO ---
Progress Note: A&P Assessment and Plan (1) Painless rectal bleeding: Code(s): K62.5 - Hemorrhage of anus and rectum Status: Acute Assessment and Plan: Patient's rectal bleeding differential diagnosis was addressed in yesterday's note. Consent, diet and orders for prep left and will perform colonoscopy tomorrow. Subjective Date/time seen: 11/10/24 14:31 Interval history: No change in patient's current status. No further rectal bleeding. Objective Data Vital Signs Vital Signs: Vital Signs - 24 hr 11/09/24 20:00 11/09/24 22:00 11/10/24 06:00 Temperature 98 F 98.2 F Pulse Rate 93 75 Respiratory Rate 16 18 Blood Pressure 139/71 144/76 H Pulse Oximetry 99 100 Oxygen Delivery Room Air Intake/Output Intake/Output: Intake & Output 11/07/24 11/08/24 11/09/24 11/10/24 23:59 23:59 23:59 23:59 Intake Total 720 920 950 440 Balance 720 920 950 440 Meds/Results Medications: Active Medications Generic Name Dose Route Start Last Admin Trade Name Freq PRN Reason Stop Dose Admin Acetaminophen 650 mg 11/02/24 14:02 Acetaminophen 325 Mg Tablet PO Q4H PRN Mild Pain (1-3) or Fever Hydrocodone Bitart/Acetaminophen 1 tab 11/02/24 14:29 11/06/24 21:47 Hydrocodone/Acetaminophen (*Crx) 5-325 Mg Tablet PO 1 tab Q4H PRN Administration Pain Rated 4-6 Dextrose 12.5 gm 11/03/24 00:32 Dextrose 50% 25 Gm/50 Ml Syringe IV PUSH PRN PRN Hypoglycemia Protocol Fenofibrate 160 mg 11/03/24 21:00 11/09/24 20:55 Fenofibrate 160 Mg Tablet PO 160 mg QHS ROXANNE Administration Glucagon 1 mg 11/03/24 00:32 Glucagon For Inj 1 Mg Vial IM PRN PRN Hypoglycemia Protocol Glucose 15 gm 11/03/24 00:32 Glucose Oral Gel 15 Gm Of Glucse In 37.5 Gm Tube PO PRN PRN Hypoglycemia Protocol Hydralazine HCl 10 mg 11/08/24 09:00 11/10/24 13:12 Hydralazine 10 Mg Tablet PO 10 mg QID ROXANNE Administration Hydroxychloroquine Sulfate 300 mg 11/03/24 09:00 11/10/24 08:41 Hydroxychloroquine Sulfate 200 Mg Tablet PO 300 mg BIDWM ROXANEN Administration Dextrose 1,000 mls @ 100 mls/hr 11/03/24 00:32 Dextrose 5% 1,000 Ml IVPB PRN PRN Hypoglycemia Protocol Insulin Aspart 2 - 5 units 11/03/24 08:00 11/10/24 13:11 Insulin Aspart (*Bkc) 100 Units/Ml SUB-Q 2 units TIDWM ROXANNE Administration Protocol Insulin Aspart 1 - 2 units 11/03/24 21:00 11/09/24 20:56 Insulin Aspart (*Bkc) 100 Units/Ml SUB-Q 1 units HS ROXANNE Administration Protocol Insulin Glargine 11 units 11/03/24 21:00 11/09/24 20:56 Insulin Glargine (*Bkc) 100 Units/Ml 0.15 units/kg (11 units) 11 units SUB-Q Administration [facility] Isosorbide Mononitrate 30 mg 11/03/24 09:00 11/10/24 08:40 Isosorbide Mononitrate 30 Mg Tab.Er.24h PO 30 mg DAILY ROXANNE Administration Leflunomide 20 mg 11/03/24 09:00 11/10/24 08:40 Leflunomide 20 Mg Tablet PO 20 mg DAILY ROXANNE Administration Levothyroxine Sodium 75 mcg 11/03/24 06:30 11/10/24 06:05 Levothyroxine Sodium 75 Mcg Tablet PO 75 mcg DAILY@0630 ROXANNE Administration Losartan Potassium 100 mg 11/03/24 09:00 11/10/24 08:40 Losartan Potassium 100 Mg Tablet PO 100 mg DAILY ROXANNE Administration Morphine Sulfate 2 mg 11/02/24 14:29 11/05/24 01:10 Morphine Sulfate (*Crx) 2 Mg/Ml Inj IV PUSH 2 mg Q2H PRN Administration Pain Rated 7-10 Nifedipine 60 mg 11/09/24 09:00 11/10/24 08:40 Nifedipine 30 Mg Tab.Er.24 PO 60 mg QAM ROXANNE Administration Ondansetron HCl 4 mg 11/04/24 06:03 Ondansetron Inj 4 Mg/2 Ml Vial IV PUSH Q6H PRN Nausea And Vomiting Pantoprazole Sodium 40 mg 11/03/24 09:00 11/10/24 08:40 Pantoprazole 40 Mg Tablet PO 40 mg Q12HR ROXANNE Administration Polyethylene Glycol 17 gm 11/06/24 12:10 11/10/24 08:40 Polyethylene Glycol 3350 17 Gm Powd.Pack PO Not Given QAM [facility] Polyethylene Glycol 119 gm 11/10/24 20:00 Polyethylene Glycol 3350 238 Gm Bottle PO 11/11/24 05:01 BID@0500,2000 [facility] Polysaccharide Iron Complex 150 mg 11/03/24 17:00 11/10/24 08:41 Polysaccharide Iron Complex 150 Mg Capsule PO 150 mg BIDWM R[facility]NE Administration Potassium Chloride 20 meq 11/03/24 09:00 11/10/24 08:40 Potassium Chloride 20 Meq Er Tablet PO 20 meq BID ROXANNE Administration Simvastatin 20 mg 11/03/24 09:00 11/10/24 08:40 Simvastatin 20 Mg Tablet PO 20 mg DAILY ROXANNE Administration Radiology Results: ITS Impressions Chest X-Ray 11/02/24 11:23 IMPRESSION: Bilateral hyperinflation suggesting COPD No active cardiopulmonary disease Aortic calcification and tortuosity Osteopenia Bilateral glenohumeral osteoarthritis Labs Labs: Laboratory Results - last 24 hr 11/09/24 11/09/24 11/10/24 16:58 20:43 06:06 WBC 10.5 H RBC 4.29 Hgb 8.4 L Hct 28.6 L MCV 66.7 L MCH 19.6 L MCHC 29.4 L RDW 22.1 H Plt Count 314 MPV 9.8 Sodium 132 L Potassium 4.3 Chloride 103 Carbon Dioxide 21 L Anion Gap 8 BUN 11 Creatinine 0.83 Estim Creat Clear Calc 52 Estimated GFR > 60 Glucose 130 H POC Capillary Glucose 218 H 255 H Calcium 8.6 Total Bilirubin 0.5 AST 16 ALT 21 Alkaline Phosphatase 126 Total Protein 6.0 L Albumin 3.5 11/10/24 11/10/24 07:32 11:41 WBC RBC Hgb Hct MCV MCH MCHC RDW Plt Count MPV Sodium Potassium Chloride Carbon Dioxide Anion Gap BUN Creatinine Estim Creat Clear Calc Estimated GFR Glucose POC Capillary Glucose 173 H 232 H Calcium Total Bilirubin AST ALT Alkaline Phosphatase Total Protein Albumin
[2024-11-10 16:33] LABS: Glucose Point of Care 145 mg/dl (65-105)
[2024-11-10] MEDS: ONDANSETRON INJ 4 MG/2 ML VIAL IV PUSH (18:10)
[2024-11-10] MEDS: FENOFIBRATE 160 MG TABLET PO (20:18)
[2024-11-10] MEDS: polyethylene glycoL 3350 238 GM BOTTLE 119 GM PO (20:20)
[2024-11-10 20:51] LABS: Glucose Point of Care 283 mg/dl (65-105)
[2024-11-10 21:50] VITALS: BP 120/60; PULSE 80; RESP 20; TEMP 36.7; O2SAT 99
[2024-11-11] MEDS: polyethylene glycoL 3350 238 GM BOTTLE 119 GM PO (04:20)
[2024-11-11 06:00] VITALS: BP 134/62; PULSE 67; RESP 18; TEMP 36.8; O2SAT 100
[2024-11-11] MEDS: LEVOTHYROXINE SODIUM 75 MCG TABLET PO (06:18)
[2024-11-11 07:42] LABS: Glucose Point of Care 182 mg/dl (65-105)
[2024-11-11 07:42] LABS: Hematocrit 30.9 % (37.0-47.0); Mean Corpuscular HGB Conc 29.1 g/dl (32-36); Mean Corpuscular Hemoglobin 19.8 pg (26-34); Mean Corpuscular Volume 68.1 fl (80-100); Mean Platelet Volume 9.8 fl (7.4-10.4); Platelet Count Result 297 k/mm3 (150-375); Red Blood Count 4.54 M/mm3 (4.2-5.4); Red Cell Distribution Width 22.5 % (11.5-14.5); White Blood Count 9.2 K/mm3 (4.5-10.0)
[2024-11-11 07:53] LABS: Alanine Aminotransferase 21 U/L (6-35); Albumin Level 3.9 g/dL (3.5-5.1); Alkaline Phosphatase 112 U/L (38-126); Anion Gap 10 mmol/L (4-12); Aspartate Amino Transferase 18 U/L (14-36); Bilirubin,Total 0.4 mg/dL (0.2-1.3); Blood Urea Nitrogen 7 mg/dL (7-17); Calcium 9.4 mg/dL (8.4-10.2); Carbon Dioxide 24 mmol/L (22-30); Chloride 99 mmol/L (98-107); Estimated CRCL calculation 48 ml/min; Estimated Glomerular Filt Rate > 60; Glucose 180 mg/dL (65-110); Potassium 4.3 mmol/L (3.4-5.0); Sodium 133 mmol/L (137-145)
--- NOTE | 2024-11-11 10:51 | PM.PNNEP ---
Progress Note: A&P Assessment and Plan (1) Hyponatremia: Code(s): E87.1 - Hypo-osmolality and hyponatremia Status: Acute Assessment and Plan: slow improvement noted (if not back to baseline) acute on chronic from review of outside records, baseline sodium runs around 129 - 136mmol/L since 2019 last blood work in August 2024 -- sodium was 129mmol/L appears relatively asymptomatic risk factors for low sodium: prerenal factors (poor oral intake) HCTZ use (stopped currently) chronic pain PPI use known thyroid disease evaluation to date noted: TSH and cortisol okay no evidence of [employer] or lung disease SPEP negative, UPEP pending urine electrolytes prerenal remains on fluid restriction - will likely need on discharge as well (2) Hypertension: Code(s): I10 - Essential (primary) hypertension Status: Chronic Assessment and Plan: better control noted continue current medications follow trend of hemodynamics (3) Diabetes: Code(s): E11.9 - Type 2 diabetes mellitus without complications Status: Acute Assessment and Plan: follow accu-cheks glycemic control per hospitalist Not much else to add -- will continue to follow from a distance. Subjective Date/time seen: 11/11/24 10:51 Interval history: Follow-up for acute on chronic hyponatremia. Sodium remains stable if not better by trend of labs; no apparent distress or other acute complaints noted at the time of my visit; scheduled for colonoscopy later today; no other issues/events overnight or earlier this morning. Exam Narrative: General: elderly but WD/WN female in NAD Heart: normal S1 and S2; no rub Lungs: clear to auscultation Abdomen: soft, nontender, nondistended, positive bowel sounds Extremities: no cyanosis or clubbing; no edema Skin: warm and dry Objective Data Vital Signs Vital Signs: Vital Signs Temp Pulse Resp BP Pulse Ox O2 Del Method 11/11/24 10:00 97.0 F L 78 16 153/69 H 100 Room Air 11/11/24 06:00 98.2 F 67 18 134/62 100 11/10/24 21:50 98.0 F 80 20 120/60 99 11/10/24 20:00 Room Air Intake/Output Intake/Output: Intake & Output 11/08/24 11/09/24 11/10/24 11/11/24 23:59 23:59 23:59 23:59 Intake Total 725 246 5952 3035.0 Balance 354 500 0486 3035.0 Meds/Results Medications: Active Medications Generic Name Dose Route Start Last Admin Trade Name Freq PRN Reason Stop Dose Admin Acetaminophen 650 mg 11/02/24 14:02 Acetaminophen 325 Mg Tablet PO Q4H PRN Mild Pain (1-3) or Fever Hydrocodone Bitart/Acetaminophen 1 tab 11/02/24 14:29 11/06/24 21:47 Hydrocodone/Acetaminophen (*Crx) 5-325 Mg Tablet PO 1 tab Q4H PRN Administration Pain Rated 4-6 Dextrose 12.5 gm 11/03/24 00:32 Dextrose 50% 25 Gm/50 Ml Syringe IV PUSH PRN PRN Hypoglycemia Protocol Fenofibrate 160 mg 11/03/24 21:00 11/10/24 20:18 Fenofibrate 160 Mg Tablet PO 160 mg QHS ROXANNE Administration Glucagon 1 mg 11/03/24 00:32 Glucagon For Inj 1 Mg Vial IM PRN PRN Hypoglycemia Protocol Glucose 15 gm 11/03/24 00:32 Glucose Oral Gel 15 Gm Of Glucse In 37.5 Gm Tube PO PRN PRN Hypoglycemia Protocol Hydralazine HCl 10 mg 11/08/24 09:00 11/11/24 14:08 Hydralazine 10 Mg Tablet PO 10 mg QID ROXANNE Administration Hydroxychloroquine Sulfate 300 mg 11/03/24 09:00 11/11/24 08:25 Hydroxychloroquine Sulfate 200 Mg Tablet PO Not Given BIDWM [facility] Dextrose 1,000 mls @ 100 mls/hr 11/03/24 00:32 Dextrose 5% 1,000 Ml IVPB PRN PRN Hypoglycemia Protocol Insulin Aspart 2 - 5 units 11/03/24 08:00 11/11/24 11:10 Insulin Aspart (*Bkc) 100 Units/Ml SUB-Q Not Given TIDWM [facility] Protocol Insulin Aspart 1 - 2 units 11/03/24 21:00 11/10/24 21:40 Insulin Aspart (*Bkc) 100 Units/Ml SUB-Q Not Given HS [facility] Protocol Insulin Glargine 11 units 11/03/24 21:00 11/10/24 21:40 Insulin Glargine (*Bkc) 100 Units/Ml 0.15 units/kg (11 units) Not Given SUB-Q HS [facility] Isosorbide Mononitrate 30 mg 11/03/24 09:00 11/11/24 08:25 Isosorbide Mononitrate 30 Mg Tab.Er.24h PO Not Given DAILY [facility] Leflunomide 20 mg 11/03/24 09:00 11/11/24 08:25 Leflunomide 20 Mg Tablet PO Not Given DAILY [facility] Levothyroxine Sodium 75 mcg 11/03/24 06:30 11/11/24 06:18 Levothyroxine Sodium 75 Mcg Tablet PO 75 mcg DAILY@0630 [facility] Administration Losartan Potassium 100 mg 11/03/24 09:00 11/11/24 08:25 Losartan Potassium 100 Mg Tablet PO Not Given DAILY [facility] Miscellaneous Information 1 each 11/11/24 00:01 [place] And Morphine Needs To Be Renewed Or It Will Automatically Discontinue. XX 12/11/24 00:00 CLARIFY [facility] Morphine Sulfate 2 mg 11/02/24 14:29 11/05/24 01:10 Morphine Sulfate (*Crx) 2 Mg/Ml Inj IV PUSH 2 mg Q2H PRN Administration Pain Rated 7-10 Nifedipine 60 mg 11/09/24 09:00 11/11/24 08:25 Nifedipine 30 Mg Tab.Er.24 PO Not Given QAM [facility] Ondansetron HCl 4 mg 11/04/24 06:03 11/11/24 14:10 Ondansetron Inj 4 Mg/2 Ml Vial IV PUSH 4 mg Q6H PRN Administration Nausea And Vomiting Pantoprazole Sodium 40 mg 11/03/24 09:00 11/11/24 08:26 Pantoprazole 40 Mg Tablet PO Not Given Q12HR [facility] Polyethylene Glycol 17 gm 11/06/24 12:10 11/11/24 08:26 Polyethylene Glycol 3350 17 Gm Powd.Pack PO Not Given QAM [facility] Polysaccharide Iron Complex 150 mg 11/03/24 17:00 11/11/24 08:25 Polysaccharide Iron Complex 150 Mg Capsule PO Not Given BIDWM [facility] Potassium Chloride 20 meq 11/03/24 09:00 11/11/24 08:26 Potassium Chloride 20 Meq Er Tablet PO Not Given BID [facility] Simvastatin 20 mg 11/03/24 09:00 11/11/24 08:26 Simvastatin 20 Mg Tablet PO Not Given DAILY [facility] Radiology Results: ITS Impressions Chest X-Ray 11/02/24 11:23 IMPRESSION: Bilateral hyperinflation suggesting COPD No active cardiopulmonary disease Aortic calcification and tortuosity Osteopenia Bilateral glenohumeral osteoarthritis Labs Labs: Laboratory Tests 11/11/24 07:14 11/11/24 07:14 Calcium 9.4 Total Bilirubin 0.4 AST 18 ALT 21 Alkaline Phosphatase 112 Total Protein 6.0 L Albumin 3.9
--- NOTE | 2024-11-11 10:52 | PC.NURSE ---
To GI Lab per [ ], IV [ ]. Report given to [CHARITY].
[2024-11-11 11:00] VITALS: BP 153/69; PULSE 78; RESP 16; TEMP 36.1; O2SAT 100
[2024-11-11] MEDS: LACTATED RINGERS 1,000 ML 150 ML IV CONT (11:15)
[2024-11-11 11:16] LABS: Glucose Point of Care 152 mg/dl (65-105)
--- NOTE | 2024-11-11 11:23 | P.PNAN_ITS ---
Anes - Initial Pre Proc Eval Procedure: Operation Date: 11/11/24 12:30 Proposed Procedures p Colonoscopy - Kennedy Holguin MD Date/Time: 11/11/24 11:23 Surgeon: Chelsie Pre Op Diagnosis: hyponatremia, leukocytosis Patient Data Age: 74 Gender: F Height: 1.7 m Weight: 75.6 kg Last Vital Signs Temp 36.1 C L 11/11/24 11:00 Pulse 78 11/11/24 11:00 Resp 16 11/11/24 11:00 BP 153/69 H 11/11/24 11:00 Pulse Ox 100 11/11/24 11:00 O2 Del Method Room Air 11/11/24 11:00 Allergies Allergy/AdvReac Type Severity Reaction Status Date / Time codeine AdvReac Unknown Nausea and Verified 11/11/24 11:04 Vomiting Home Medications ?Medication ?Instructions ?Recorded ?Confirmed ?Type amlodipine 5 mg tablet 5 mg PO DAILY 11/02/24 11/02/24 History ergocalciferol (vitamin D2) 1,250 1,250 mcg PO DAILY 11/02/24 11/02/24 History mcg (50,000 unit) capsule etanercept 50 mg/mL (1 mL) 50 mg subcut WEEKLY 11/02/24 11/02/24 History subcutaneous pen injector (Enbrel SureClick) fenofibrate 160 mg tablet 160 mg PO QHS 11/02/24 11/02/24 History glipizide 10 mg tablet, extended 20 mg PO DAILY 11/02/24 11/02/24 History release 24 hr hydroxychloroquine 200 mg tablet 310 mg PO BID 11/02/24 11/02/24 History isosorbide mononitrate 30 mg 30 mg PO DAILY 11/02/24 11/02/24 History tablet,extended release 24 hr leflunomide 20 mg tablet (Arava) 20 mg PO DAILY 11/02/24 11/02/24 History levothyroxine 75 mcg tablet 75 mcg PO DAILY 11/02/24 11/02/24 History losartan 100 mg tablet 100 mg PO DAILY 11/02/24 11/02/24 History metformin 1,000 mg tablet 1,000 mg PO BID 11/02/24 11/02/24 History omeprazole 40 mg capsule,delayed 40 mg PO DAILY 11/02/24 11/02/24 History release potassium chloride 20 mEq 20 meq PO BID 11/02/24 11/02/24 History tablet,extended release (K-Tab) simvastatin 20 mg tablet 20 mg PO DAILY 11/02/24 11/02/24 History sitagliptin phosphate 100 mg 100 mg PO DAILY 11/02/24 11/02/24 History tablet (Januvia) tirzepatide 5 mg/0.5 mL 5 mg subcut WEEKLY 11/02/24 11/02/24 History subcutaneous pen injector (Kainunmichelle) hydralazine 10 mg tablet 10 mg PO QID 30 days #120 tabs 11/11/24 Rx nifedipine 30 mg tablet,extended 60 mg (2 x 30 mg) PO QAM #30 tabs 11/11/24 Rx release 24 hr (Procardia XL) polyethylene glycol 3350 17 gram 17 g PO QAM #30 ea 11/11/24 Rx oral powder packet (Miralax) polysaccharide iron complex 150 mg 150 mg PO BIDWM #30 caps 11/11/24 Rx iron capsule Laboratory Tests 11/10/24 11/10/24 11/10/24 11:41 16:21 19:56 WBC RBC Hgb Hct MCV MCH MCHC RDW Plt Count MPV Sodium Potassium Chloride Carbon Dioxide Anion Gap BUN Creatinine Estim Creat Clear Calc Estimated GFR Glucose POC Capillary Glucose 232 H mg/dl 145 H mg/dl 283 H mg/dl (65-105) (65-105) (65-105) Calcium Total Bilirubin AST ALT Alkaline Phosphatase Total Protein Albumin 11/11/24 11/11/24 11/11/24 07:14 07:38 11:14 WBC 9.2 K/mm3 (4.5-10.0) RBC 4.54 M/mm3 (4.2-5.4) Hgb 9.0 L g/dL (12.0-15.0) Hct 30.9 L % (37.0-47.0) MCV 68.1 L fl (80-100) MCH 19.8 L pg (26-34) MCHC 29.1 L g/dl (32-36) RDW 22.5 H % (11.5-14.5) Plt Count 297 k/mm3 (150-375) MPV 9.8 fl (7.4-10.4) Sodium 133 L mmol/L (137-145) Potassium 4.3 mmol/L (3.4-5.0) Chloride 99 mmol/L (98-107) Carbon Dioxide 24 mmol/L (22-30) Anion Gap 10 mmol/L (4-12) BUN 7 mg/dL (7-17) Creatinine 0.90 mg/dL (0.7-1.0) Estim Creat Clear Calc 48 ml/min Estimated GFR > 60 (59 - ) Glucose 180 H mg/dL (65-110) POC Capillary Glucose 182 H mg/dl 152 H mg/dl (65-105) (65-105) Calcium 9.4 mg/dL (8.4-10.2) Total Bilirubin 0.4 mg/dL (0.2-1.3) AST 18 U/L (14-36) ALT 21 U/L (6-35) Alkaline Phosphatase 112 U/L (38-126) Total Protein 6.0 L g/dL (6.3-8.2) Albumin 3.9 g/dL (3.5-5.1) Patient hx anesthesia problems: none Family hx anesthesia problems: none Results Review: All pre-operative results and documents have been reviewed as part of the pre- operative evaluation. [facility] Past Medical History Medical History Arthritis Diabetes Hyperlipidemia Hypertension Social History Social History Smoking packs per day: 1 Smoking cigarettes per day: 20.0 Smoking status: Former smoker Tobacco type: cigarettes Alcohol intake: current Drinks per week: 1 Substance use: current Substance use type: marijuana Other substance usage details: every day marijuana Last use: 11/02/2024 Do You Feel Safe in your Home?: Yes Lack of Transportation: No Lack of Food: Never True Current Housing: I Have Housing Concerned About Future Housing: No Difficulty Paying Gas/Electric Bills: No Difficulty Paying for Meds: No Currently Unemployed: No Education: Grade School Difficulty w/ Childcare or Family Care: No Spiritual care concerns: No Anes - Eval Final PreProcedure Day of Procedure 11/11/24 11:23 Patient weight: overweight Heart: regular rate and rhythm Lungs: clear to auscultation Airway: Mallampati scale class II Neurological: alert and oriented Last oral intake: >/= 8 hours ASA classification: III Emergent: no Anesthetic plan: proceed Anesthesia type and monitoring: general GIVS and standard monitoring Results Review: All pre-operative results and documents have been reviewed as part of the pre- operative evaluation. Informed Consent: The patient's anesthetic plan and its attendant risks and benefits were discussed with the patient/family/POA. Questions were solicited and answers provided to the satisfaction of the patient/family/POA.
[2024-11-11 12:02] VITALS: BP 102/54; PULSE 68; RESP 18; O2SAT 100
--- NOTE | 2024-11-11 12:06 | WPDGIPROGNO ---
Progress Note: A&P Assessment and Plan (1) Painless rectal bleeding: Code(s): K62.5 - Hemorrhage of anus and rectum Status: Acute Assessment and Plan: the patient has mild diverticulosis and small internal hemorrhoids, which are the most likely source of her bleeding episodes. She can be discharged from our specialty standpoint, and follow up by her primary care physician. Hemorrhoids are small and do not require surgical or interventional treatment. General measures such as avoiding constipation, it high-fiber diet and application of local [id number] hemorrhoidal creams twice a day for 2 weeks with be enough to treat her current problem. (2) Internal hemorrhoid: Code(s): K64.8 - Other hemorrhoids Status: Acute Time Spent With Patient Time with patient: 15 - 25 minutes Subjective Date/time seen: 11/11/24 12:06 Interval history: patient did not have further bleeding episodes. Please see colonoscopy Report Objective Data Vital Signs Vital Signs: Vital Signs - 24 hr 11/10/24 14:00 11/10/24 20:00 11/10/24 21:50 Temperature 97.8 F 98.0 F Pulse Rate 90 80 Respiratory Rate 20 20 Blood Pressure 138/72 120/60 Pulse Oximetry 100 99 Oxygen Delivery Room Air 11/11/24 06:00 11/11/24 11:00 11/11/24 12:02 Temperature 98.2 F 97.0 F L Pulse Rate 67 78 68 Respiratory Rate 18 16 18 Blood Pressure 134/62 153/69 H 102/54 L Pulse Oximetry 100 100 100 Oxygen Delivery Room Air Room Air Intake/Output Intake/Output: Intake & Output 11/08/24 11/09/24 11/10/24 11/11/24 23:59 23:59 23:59 23:59 Intake Total 102 558 5112 2897.5 Balance 890 686 6273 2897.5 Meds/Results Medications: Active Medications Generic Name Dose Route Start Last Admin Trade Name Freq PRN Reason Stop Dose Admin Acetaminophen 650 mg 11/02/24 14:02 Acetaminophen 325 Mg Tablet PO Q4H PRN Mild Pain (1-3) or Fever Hydrocodone Bitart/Acetaminophen 1 tab 11/02/24 14:29 11/06/24 21:47 Hydrocodone/Acetaminophen (*Crx) 5-325 Mg Tablet PO 1 tab Q4H PRN Administration Pain Rated 4-6 Dextrose 12.5 gm 11/03/24 00:32 Dextrose 50% 25 Gm/50 Ml Syringe IV PUSH PRN PRN Hypoglycemia Protocol Fenofibrate 160 mg 11/03/24 21:00 11/10/24 20:18 Fenofibrate 160 Mg Tablet PO 160 mg QHS ROXANNE Administration Glucagon 1 mg 11/03/24 00:32 Glucagon For Inj 1 Mg Vial IM PRN PRN Hypoglycemia Protocol Glucose 15 gm 11/03/24 00:32 Glucose Oral Gel 15 Gm Of Glucse In 37.5 Gm Tube PO PRN PRN Hypoglycemia Protocol Hydralazine HCl 10 mg 11/08/24 09:00 11/11/24 08:25 Hydralazine 10 Mg Tablet PO Not Given QID [facility] Hydroxychloroquine Sulfate 300 mg 11/03/24 09:00 11/11/24 08:25 Hydroxychloroquine Sulfate 200 Mg Tablet PO Not Given BIDWM [facility] Dextrose 1,000 mls @ 100 mls/hr 11/03/24 00:32 Dextrose 5% 1,000 Ml IVPB PRN PRN Hypoglycemia Protocol Lactated Ringer's 1,000 mls @ 150 mls/hr 11/11/24 11:10 11/11/24 12:00 Lr - Lactated Ringers Iv IV CONT 150 mls/hr .[id number] [facility] Infusion Insulin Aspart 2 - 5 units 11/03/24 08:00 11/11/24 11:10 Insulin Aspart (*Bkc) 100 Units/Ml SUB-Q Not Given TIDWM [facility] Protocol Insulin Aspart 1 - 2 units 11/03/24 21:00 11/10/24 21:40 Insulin Aspart (*Bkc) 100 Units/Ml SUB-Q Not Given HS [facility] Protocol Insulin Glargine 11 units 11/03/24 21:00 11/10/24 21:40 Insulin Glargine (*Bkc) 100 Units/Ml 0.15 units/kg (11 units) Not Given SUB-Q [facility] Isosorbide Mononitrate 30 mg 11/03/24 09:00 11/11/24 08:25 Isosorbide Mononitrate 30 Mg Tab.Er.24h PO Not Given DAILY [facility] Leflunomide 20 mg 11/03/24 09:00 11/11/24 08:25 Leflunomide 20 Mg Tablet PO Not Given DAILY [facility] Levothyroxine Sodium 75 mcg 11/03/24 06:30 11/11/24 06:18 Levothyroxine Sodium 75 Mcg Tablet PO 75 mcg DAILY@0630 [facility] Administration Losartan Potassium 100 mg 11/03/24 09:00 11/11/24 08:25 Losartan Potassium 100 Mg Tablet PO Not Given DAILY [facility] Morphine Sulfate 2 mg 11/02/24 14:29 11/05/24 01:10 Morphine Sulfate (*Crx) 2 Mg/Ml Inj IV PUSH 2 mg Q2H PRN Administration Pain Rated 7-10 Nifedipine 60 mg 11/09/24 09:00 11/11/24 08:25 Nifedipine 30 Mg Tab.Er.24 PO Not Given QAM [facility] Ondansetron HCl 4 mg 11/04/24 06:03 11/10/24 18:10 Ondansetron Inj 4 Mg/2 Ml Vial IV PUSH 4 mg Q6H PRN Administration Nausea And Vomiting Pantoprazole Sodium 40 mg 11/03/24 09:00 11/11/24 08:26 Pantoprazole 40 Mg Tablet PO Not Given Q12HR [facility] Polyethylene Glycol 17 gm 11/06/24 12:10 11/11/24 08:26 Polyethylene Glycol 3350 17 Gm Powd.Pack PO Not Given QAM [facility] Polysaccharide Iron Complex 150 mg 11/03/24 17:00 11/11/24 08:25 Polysaccharide Iron Complex 150 Mg Capsule PO Not Given BIDWM [facility] Potassium Chloride 20 meq 11/03/24 09:00 11/11/24 08:26 Potassium Chloride 20 Meq Er Tablet PO Not Given BID [facility] Simvastatin 20 mg 11/03/24 09:00 11/11/24 08:26 Simvastatin 20 Mg Tablet PO Not Given DAILY [facility] Radiology Results: ITS Impressions Chest X-Ray 11/02/24 11:23 IMPRESSION: Bilateral hyperinflation suggesting COPD No active cardiopulmonary disease Aortic calcification and tortuosity Osteopenia Bilateral glenohumeral osteoarthritis Labs Labs: Laboratory Results - last 24 hr 11/10/24 11/10/24 11/11/24 16:21 19:56 07:14 WBC 9.2 RBC 4.54 Hgb 9.0 L Hct 30.9 L MCV 68.1 L MCH 19.8 L MCHC 29.1 L RDW 22.5 H Plt Count 297 MPV 9.8 Sodium 133 L Potassium 4.3 Chloride 99 Carbon Dioxide 24 Anion Gap 10 BUN 7 Creatinine 0.90 Estim Creat Clear Calc 48 Estimated GFR > 60 Glucose 180 H POC Capillary Glucose 145 H 283 H Calcium 9.4 Total Bilirubin 0.4 AST 18 ALT 21 Alkaline Phosphatase 112 Total Protein 6.0 L Albumin 3.9 11/11/24 11/11/24 07:38 11:14 WBC RBC Hgb Hct MCV MCH MCHC RDW Plt Count MPV Sodium Potassium Chloride Carbon Dioxide Anion Gap BUN Creatinine Estim Creat Clear Calc Estimated GFR Glucose POC Capillary Glucose 182 H 152 H Calcium Total Bilirubin AST ALT Alkaline Phosphatase Total Protein Albumin
--- NOTE | 2024-11-11 12:07 | PC.NURSE ---
Returned from GI Lab. Report received from [Stacia].
[2024-11-11 12:12] VITALS: BP 127/57; PULSE 66; RESP 18; O2SAT 99
[2024-11-11 12:22] VITALS: BP 150/58; PULSE 70; RESP 17; O2SAT 100
[2024-11-11 14:00] VITALS: BP 170/65; PULSE 78; RESP 18; TEMP 36.3; O2SAT 100
[2024-11-11] MEDS: hydrALAZINE 10 MG TABLET PO ×2 (14:08→16:53)
[2024-11-11] MEDS: ONDANSETRON INJ 4 MG/2 ML VIAL IV PUSH (14:10)
--- NOTE | 2024-11-11 15:38 | PM.DS ---
DS: Admitting Diagnosis Discharge Date Admitting Diagnosis Body aches DS: Discharge Diagnosis Discharge Diagnosis (1) Acute hyponatremia: Code(s): E87.1 - Hypo-osmolality and hyponatremia Status: Acute Assessment and Plan: Resolved Admission sodium level of 116. Nephrology consulted Presumed etiology hydrochlorothiazide Free water restriction (2) Body aches: Code(s): R52 - Pain, unspecified Status: Acute Assessment and Plan: Cont. current, intermittently controlled. (3) Leukocytosis: Code(s): D72.829 - Elevated white blood cell count, unspecified Status: Acute Assessment and Plan: Resolved 33 KA on admission. Urinalysis with 6-10 WBC in urine Urine culture mixed genital yaw Started on ceftriaxone on admission is 11/03/2024 (4) Hypertension: Code(s): I10 - Essential (primary) hypertension Status: Chronic Assessment and Plan: - Continue home med (5) Diabetes: Code(s): E11.9 - Type 2 diabetes mellitus without complications Status: Acute Assessment and Plan: - Cont. Accu-Cheks a.c. HS with corrective insulin. - Diabetic diet. - Holding glipizide, metformin. (6) Arthritis: Code(s): M19.90 - Unspecified osteoarthritis, unspecified site Status: Acute Assessment and Plan: - Encouraged to request prns when having pain. Stable. Continue hydrochloroquine and Arava (7) Hypothyroidism: Code(s): E03.9 - Hypothyroidism, unspecified Status: Acute Assessment and Plan: TSH 1.7, Continue Synthroid (8) Microcytic anemia: Code(s): D50.9 - Iron deficiency anemia, unspecified Status: Acute Assessment and Plan: - Anemic on presentation with hgb 8.2, steadily downtrending, to 6.7. Needing transfusion - check ferritin, tibc/iron/sat and fobt. - GI Following - Colonoscopy on 11/11 - Hold lovenox. H&H remained stable Plan 74-year-old female past medical history of diabetes, hypertension hyperlipidemia and arthritis presents to the hospital with vague complaints of general body aches. Patient is unable to describe her symptoms very well however she states that she feels better now. She denies nausea vomiting fever chills. Patient has leukocytosis at 33.2 anemia and 8.2, sodium of 116 hyperglycemia of to 86, UA was negative for acute infection, chest x-ray shows bilateral hyperinflation, no acute cardiopulmonary process, EKG shows sinus tachycardia qtc 489, patient was given 1 L bolus in the emergency room and sodium was ruled checked and came back at 121, she was started on half-normal saline at 75 by nephrology. I assumed care on 11/06 : Patient has been treated for HypoNa which is resolved after stopping hydrochlorothiazide.Started on Hydralazine 5mg PO QID and increased Amlodipine 5 mg to 10 mg PO QD due to her elevated high blood pressure. Her TSH and cortisols are normal. Currently patient on target blood pressure. Patient had rectal bleeding for which she underwent colonoscopy today which showsmild diverticulosis and small internal hemorrhoids. Patient is cleared from GI standpoint of view. Upon discharge patient needs to follow-up with the GI, Rheumatology, PCP within week of upon discharge. DS: Summary Hospital Course Hospital Course: 74-year-old female past medical history of diabetes, hypertension hyperlipidemia and arthritis presents to the hospital with vague complaints of general body aches. Patient is unable to describe her symptoms very well however she states that she feels better now. She denies nausea vomiting fever chills. Patient has leukocytosis at 33.2 anemia and 8.2, sodium of 116 hyperglycemia of to 86, UA was negative for acute infection, chest x-ray shows bilateral hyperinflation, no acute cardiopulmonary process, EKG shows sinus tachycardia qtc 489, patient was given 1 L bolus in the emergency room and sodium was ruled checked and came back at 121, she was started on half-normal saline at 75 by nephrology. I assumed care on 11/06 : Patient has been treated for HypoNa which is resolved after stopping hydrochlorothiazide.Started on Hydralazine 5mg PO QID and increased Amlodipine 5 mg to 10 mg PO QD due to her elevated high blood pressure. Her TSH and cortisols are normal. Currently patient on target blood pressure. Patient had rectal bleeding for which she underwent colonoscopy today which showsmild diverticulosis and small internal hemorrhoids. Patient is cleared from GI standpoint of view. Upon discharge patient needs to follow-up with the Nephrology, GI, Rheumatology, PCP within week of upon discharge. Status at Discharge Cognitive/behavioral status at discharge: Stable Time Spent with Patient Time attestation: Total time spent providing and/or coordinating discharge services:45 mins Exam Narrative: GENERAL APPEARANCE: Appears to be in no acute distress. HEAD: normocephalic atraumatic EYES: PERRL, EOMI. Vision grossly intact. ENT: Hearing grossly intact, no nasal discharge NECK: Neck supple, trachea midline. CARDIAC: Normal S1/S2. Rhythm is regular. No murmurs, rubs, or gallops. No cyanosis or pallor. Extremities are warm and well perfused. LUNGS: Clear to auscultation without rales, rhonchi, wheezing or diminished breath sounds. Respirations even and unlabored. ABDOMEN: BS positive x 4 quadrants. Soft, nondistended, nontender. No guarding or rebound. MSK: No joint tenderness/swelling, fair strength in all extremities. PERIPHERAL VASCULAR: Peripheral pulses palpable. Normal perfusion, cap refill <2 seconds. No edema. NEURO: Follows commands. No focal deficits. SKIN: [place] without lesions or eruptions. PSYCH: Stable, no paranoia or delusional thinking. DS: Data Data Completed and Pending Labs on day of discharge: Labs from last 24 hours 11/11/24 11/11/24 11/11/24 11:14 07:38 07:14 WBC 9.2 RBC 4.54 Hgb 9.0 L Hct 30.9 L MCV 68.1 L MCH 19.8 L MCHC 29.1 L RDW 22.5 H Plt Count 297 MPV 9.8 Sodium 133 L Potassium 4.3 Chloride 99 Carbon Dioxide 24 Anion Gap 10 BUN 7 Creatinine 0.90 Estim Creat Clear Calc 48 Estimated GFR > 60 Glucose 180 H POC Capillary Glucose 152 H 182 H Calcium 9.4 Total Bilirubin 0.4 AST 18 ALT 21 Alkaline Phosphatase 112 Total Protein 6.0 L Albumin 3.9 11/10/24 11/10/24 19:56 16:21 WBC RBC Hgb Hct MCV MCH MCHC RDW Plt Count MPV Sodium Potassium Chloride Carbon Dioxide Anion Gap BUN Creatinine Estim Creat Clear Calc Estimated GFR Glucose POC Capillary Glucose 283 H 145 H Calcium Total Bilirubin AST ALT Alkaline Phosphatase Total Protein Albumin Imaging Radiologist's impression: ITS Impressions Chest X-Ray 11/02/24 11:23 IMPRESSION: Bilateral hyperinflation suggesting COPD No active cardiopulmonary disease Aortic calcification and tortuosity Osteopenia Bilateral glenohumeral osteoarthritis Discharge Plan Discharge Attending physician on discharge: Jeremiah Galo Consulting providers: Navarro Fabian Discharging Clinician: Jeremiah Galo Patient Disposition: NH Shelter/Asst Living Activity: as tolerated Diet: diabetic Discharge Instructions: Upon discharge patient needs to follow-up with the Nephrology, GI, Rheumatology, PCP within week of upon discharge. Check blood pressure 1 to 2 times a day. Record and bring into your doctor for review. Call your doctor if your blood pressure is greater than 180/110 or less than 90/45. Take precautions to avoid falls. Rise slowly from a lying or sitting position. Pause before standing or walking. Contact your doctor or call 911 and come to the Emergency Room if you have any type of trauma, lightheadedness with standing or other worrisome symptoms. Avoid NSAIDs (ibuprofen, naproxen, Aleve). Tylenol is safe to take. Thank you for using [facility] for your health care needs. Patient Instructions: Antibiotic Form, High Fiber Diet (GEN) Patient Language: Turkish Stand Alone Forms: General Discharge Information Discharge Medications: New nifedipine [Procardia XL] 30 mg Tablet Extended Release 24hr 60 mg PO QAM Qty: 30 0RF hydralazine 10 mg Tablet 10 mg PO QID 30 Days Qty: 120 0RF polyethylene glycol 3350 [Miralax] 17 gram Powder In Packet 17 g PO QAM Qty: 30 0RF polysaccharide iron complex 150 mg iron Capsule 150 mg PO BIDWM Qty: 30 0RF Continued amlodipine 5 mg tablet 5 mg PO DAILY glipizide 10 mg tablet extended release 24hr 20 mg PO DAILY isosorbide mononitrate 30 mg tablet extended release 24 hr 30 mg PO DAILY omeprazole 40 mg capsule,delayed release(DR/EC) 40 mg PO DAILY levothyroxine 75 mcg tablet 75 mcg PO DAILY simvastatin 20 mg tablet 20 mg PO DAILY metformin 1,000 mg tablet 1,000 mg PO BID ergocalciferol (vitamin D2) 1,250 mcg (50,000 unit) capsule 1,250 mcg PO DAILY hydroxychloroquine 200 mg tablet 310 mg PO BID losartan 100 mg tablet 100 mg PO DAILY fenofibrate 160 mg tablet 160 mg PO QHS Januvia 100 mg tablet 100 mg PO DAILY Enbrel SureClick 50 mg/mL (1 mL) pen injector 50 mg SUBCUT WEEKLY Mounjaro 5 mg/0.5 mL pen injector 5 mg SUBCUT WEEKLY leflunomide [Arava] 20 mg tablet 20 mg PO DAILY potassium chloride [K-Tab] 20 mEq tablet extended release 20 meq PO BID Discontinued hydrochlorothiazide 25 mg tablet 25 mg PO DAILY Date of admission: 11/02/24 16:30 Primary Care Provider: Elizabet,Eliana Barron Admitting Provider: Ab Wheeler Attending physician on admission: Ab Wheeler Condition: Stable
[2024-11-11 15:59] LABS: Glucose Point of Care 149 mg/dl (65-105)
[2024-11-11 16:52] LABS: Glucose Point of Care 150 mg/dl (65-105)
[2024-11-11] MEDS: POTASSIUM CHLORIDE 20 MEQ ER TABLET PO (16:53)
[2024-11-11] MEDS: HYDROXYCHLOROQUINE SULFATE 200 MG TABLET 300 MG PO (16:53)
[2024-11-11] MEDS: POLYSACCHARIDE IRON COMPLEX 150 MG CAPSULE PO (16:53)
== END 2024-11-11 17:12 | disposition home or self-care (01) | DRG 640 ==
LOC: ANHED 12:27 → ANH2MED 16:08 → ANH3MEDSUR 18:39
PROVIDERS: Internal Medicine; Internal Medicine Gastroenterology; Internal Medicine Nephrology; Nurse Practitioner Family; Nurse Practitioner Gerontology; Student in an Organized Health Care Education/Training Program; Admitting Provider Internal Medicine; Emergency Provider Emergency Medicine; PCP Nurse Practitioner Family; Visit Provider General Practice
PROC: 0DJD8ZZ Inspection of Lower Intestinal Tract, Via Natural or Artificial Opening Endoscopic (ICD-10-PCS; CPT 45378; principal; 2024-11-11 12:30)
DX: E87.1 Hypo-osmolality and hyponatremia (principal); K57.31 Diverticulosis of large intestine without perforation or abscess with bleeding; T50.2X5A Adverse effect of carbonic-anhydrase inhibitors, benzothiadiazides and other diuretics, initial encounter; K64.8 Other hemorrhoids; D72.829 Elevated white blood cell count, unspecified; I10 Essential (primary) hypertension; E11.65 Type 2 diabetes mellitus with hyperglycemia; E03.9 Hypothyroidism, unspecified; D50.9 Iron deficiency anemia, unspecified; E78.5 Hyperlipidemia, unspecified; M19.90 Unspecified osteoarthritis, unspecified site; M06.9 Rheumatoid arthritis, unspecified; Z87.891 Personal history of nicotine dependence
CPT/HCPCS: 36415; 36430; 71046; 80048; 80053; 81001; 81003; 82274; 82533; 82570; 82728; 82948; 83540; 83550; 83690; 83735; 83930; 83935; 84155; 84156; 84165; 84166; 84295; 84300; 84443; 84466; 84484; 84540; 85014; 85018; 85025; 85027; 85610; 85730; 86850; 86900; 86901; 86923; 87040; 87086; 87651; 93005; 96361; 96374; 96375; 96376; 99285; A9270; G0378; J0360; J0696; J1650; J1815; J2003; J2270; J2405; J2597; J2704; J7030; J7050; J7060; J7120; P9016

== ENCOUNTER 2025-07-15 07:57 | Outpatient (CLI) | payer MEDICARE, MEDICAID, SELFPAY ==
--- NOTE | ~2025-07-15 | US_ITS ---
ULTRASOUND ABDOMEN LIMITED (RIGHT UPPER QUADRANT) Clinical History: ELEVATED LIVER ENZYMES Comparison: CT abdomen and pelvis 02/02/2023 Technique: Right upper quadrant sonography Findings: Liver: Nodular contour. Enlarged. Coarse echotexture. No intrahepatic biliary ductal dilatation. Normal hepatopedal flow main portal vein. Common Duct: 7 mm. Gallbladder: Stone. No wall thickening. No pericholecystic fluid. Pancreas: Unremarkable. Right kidney: No stones or hydronephrosis. Simple cyst. Retrohepatic IVC: Unremarkable. IMPRESSION: 1. Cirrhosis, with steatosis. 2. No discrete hepatic mass identified. 3. No intrahepatic dilatation. Reviewed, dictated and finalized at location R.
--- OUTSIDE RECORDS SUMMARY | 2025-07-15 08:12 | XMS_ITS | Clinical Summary ---
Author Organization [facility] Address [address] [place] [address] Care Team Providers Care Knife Glazer Name Role Phone Danny Tony MD Primary Care Provider Source Comments [facility],non-owned Affiliates and Associated Physician Practices is amultiple site organization consisting of ambulatory clinics and hospital sitesin [place], [place], [place] and [place]. This disclosure is being madepursuant to the Care Everywhere program and may not contain all information available regarding this patient. Last updated 18.[facility] Allergies Active Allergy Reactions Criticality Noted Date Comments Codeine Nausea and/or Vomiting Low 2016 Medications * Be aware that medications may not be up to date on this document. Alwaysverify current medications with the patient. metFORMIN (GLUCOPHAGE) 1000 MG tablet Take 1 (one) tablet by mouth BID 2 018 Active simvastatin (ZOCOR) 20 MG tablet Take 1 (one) tablet by mouth 016 Active levothyroxine (SYNTHROID) 75 MCG tablet Take 1 (one) tablet by mouth DAILY 016 Active losartan (COZAAR) 100 MG tablet Take 1 (one) tablet by mouth once daily 4 018 Active ONETOUCH VERIO test strip Use 1 (one) strip as directed 4 018 Active GLIPIZIDE XL 10 MG tablet Take 1 (one) tablet by mouth 2 times daily 3 018 Active omeprazole (PRILOSEC) 40 MG capsuleIndicat ions:Erosive Esophagitis Take 1 (one) capsule by mouth 2 times daily, before breakfast and supper Reasons: Esophagus Inflammation with Erosion Active Mounjaro 5 MG/0.5ML injection Inject 0.5 mL subcutaneously every 7 days 022 Active aspirin EC (Ecotrin) 81 MG tablet Take 1 (one) tablet by mouth every 24 hours Active vitamin D, ergocalciferol , (Drisdol) 1.25 MG (61673 UT) capsule Take 1 (one) capsule by mouth every 7 days (once a week) 022 Active leflunomide (Arava) 20 MG tablet Take 1 (one) tablet by mouth once daily Active nitroGLYCERIN (Nitrostat) 0.4 MG tablet Dissolve 1 (one) tablet under the tongue 023 Active hydroxychloroq uine (Plaquenil) 200 MG tabletIndicati ons:Seropositi ve rheumatoid arthritis (HCC),Therapeu tic drug monitoring,Hig h risk medication use TAKE 1 AND 1/2 TABLETS BY MOUTH TWICE DAILY 270 tablet 3 024 Active NIFEdipine CR osmotic 24hr (Procardia-XL) 30 MG tablet Take 1 (one) tablet by mouth at bedtime 025 Active ferrous sulfate 325 (65 FE) MG tablet Take 1 (one) tablet by mouth once daily Active Enbrel SureClick 50 MG/ML auto-injector penIndications :Seropositive erosive rheumatoid arthritis (HCC) ADMINISTER 1 ML UNDER THE SKIN EVERY 7 DAYS 4 mL 1 025 Active etanercept (Enbrel) 50 MG/ML auto-injector penIndications :Seropositive erosive rheumatoid arthritis (HCC) Inject 50 (fifty) mg subcutaneously every 7 days 4 mL 5 024 2024 Discontinued Active Problems Problem Noted Date Diagnosed Date Rheumatoid arthritis with rheumatoid factor 04/23 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 7 Encounter for therapeutic drug level monitoring 05/12/2017 Encounters Date Type Department Care Team Description 06/27/2025 Travel 06/15/2025 Refill [facility] - Rheumatology [address] [place] [address], [place] [address] Lonnie Tai MD Refill Request from Last 3 Months Immunizations Immunization Administration Dates Next Due Covid Moderna primary [...] Recorded Patient Health Questionnaire-2 Score 0 11/14/2023 Comments No Sex and Gender Information Value Date Recorded Sex Assigned at Not on file Legal Sex Female 5:23 PM [employer] Gender Identity Not on file Sexual Orientation Not on file Last Filed Vital Signs Vital Sign Reading Time Taken Comments Blood Pressure 98/64 02/07/2025 2:45 PM CDT Pulse 75 02/07/2025 2:45 PM CDT Temperature 36.7 C (98.1 F) 02/07/2025 2:29 PM CDT Respiratory Rate 24 02/07/2025 2:45 PM CDT Oxygen Saturation 97% 02/07/2025 2:45 PM CDT Inhaled Oxygen Concentration - - Weight 71.2 kg (157 lb) 02/07/2025 12:46 PM CDT Height 170.2 cm (5' 7) 02/07/2025 12:46 PM CDT Body Mass Index 24.59 02/07/2025 12:46 PM CDT Plan of Treatment Upcoming Encounters Date Type Department Care Team (Late st Contact Info) Description 07/16/2025 12:30 PM CDT Procedure visit [facility] - GI [address] [place] [address] 07/16/2025 12:30 PM CDT [facility] [address] [place] [id number] Thalia Dunlap MD [address] [place] [address] [address] [place] [address] 07/16/2025 1:00 PM CDT Office Visit [facility] - GI [address] [place] [address], [place] [id number] Matias Lewis III, MD [address] [place] [address] [address] [place] [address] 07/21/2025 1:00 PM CDT Office Visit [facility] - Rheumatology [address] [place] [address], [place] [address] Mariam Borges MD [address] [place] [address] [place] [address] Health Maintenance Due Date Last Done Comments COLOGUARD (AGES 45-75) - COLON CA SCREENING 1952 COLON MONITORING 1952 COLONOSCOPY - COLON CA SCREENING 1952 CT COLONOGRAPHY - COLON CA SCREENING 1952 Colorectal Cancer Screening 1952 FIT - COLON CA SCREENING 1952 FLEX SIG - COLON CA SCREENING 1952 MAMMOGRAM 1952 DTAP/TDAP/TD VACCINES (1 - Tdap) 1971 ZOSTER VACCINE (1 of 2) 2002 DEPRESSION SCREENING 10/23/2024 11/14/2023, 09/20/20 22 MEDICARE AWV CALENDAR YEAR 2024 COVID-19 VACCINE ( season) 2025 01/29/2021, 01/01/2021 INFLUENZA VACCINE (#1) 2025 , 08/04/2022, 07/01/2021, Additional history exists Respiratory Syncytial Virus (RSV) Vaccine Pt: or over 60 yrs (1 - 1-dose 75+ series) 2027 PNEUMOCOCCAL VACCINE 50+ Completed 12/02/2020, 11/2016 BONE DENSITY TESTING Completed 05/13/2021 HEPATITIS C SCREENING Completed 08/16/2023 , 12/15/2022, 12/11/2020, Additional history exists HEPATITIS B VACCINE Aged Out No longe r eligible based on patient's age to complete this topic HIB VACCINE Aged Out No longer eligi ble based on patient's age to complete this topic HPV VACCINE Aged Out No longer eligi ble based on patient's age to complete this topic MENINGOCOCCAL (Group B) VACCINE SHARED DECISION-MAKING Aged Out No longer eligible based on patient's age to complete this topic MENINGOCOCCAL GROUPS A/C/Y/W VACCINE Aged Out No longer eligible based on patient's age to complete this topic Procedures Procedure Name Priority Date/Time Associated Diagnosis Comments HEPATITIS C ANTIBODY Routine 08/16/2023 8:36 AM CDT 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 arthritis Therapeutic drug monitoring High risk medication use DEXA BONE DENSITY AXIAL SKELETON Routine 05/13/2021 8:11 AM CDT Seropositive erosive rheumatoid arthritis Osteoporosis screening from Last 3 Months or Most Recently Relevant to Health Maintenance Results * HEPATITIS C ANTIBODY (08/16/2023 8:36 AM [...] Resulting Agency Comment [facility] [address] [id number] [place] Lonnie Tai MD LAB - CHEMISTRY ORDERABL ES Final Result [facility] INSURANCE BILL [address] [place] [address] * BONE DENSITY AXIAL SKELETON(1OR MORE SITES)[id number] (05/13/2021 8:11 AM CDT) Anatomical Region Laterality Modality Other 05/13/2021 2:47 PM CDT Narrative 05/13/2021 3:03 PM CDT Examination: Dual energy x-ray absorptiometry of the hip. Clinical Indication: M05.80: Seropositive erosive rheumatoid arthritis Z13.820: Osteoporosis screening Findings: Detailed data from the exam is sent separately to the ordering physician and is also available on [employer], the Radiology Department's computerized picture archive system. [...] Sachin Arita on 05/13/2021 2:[address] TANVI Cha D.O. have personally reviewed and interpreted this examination/study. This report was electronically signed by TANVI FLORES D.O. on 05/13/2021 3:03 PM . Procedure Note Tanvi Flores, DO - 05/13/2021 Examination: Dual energy x-ray absorptiometry of the hip. Clinical Indication: M05.80: Seropositive erosive rheumatoid arthritis Z13.820: Osteoporosis screening Findings: Detailed data from the exam is sent separately to the ordering physician and is also available on [employer], the Radiology Department's computerized picture archive system. [...] Sachin Arita on 05/13/2021 2:48 PM . IDr. TANVI D.O. have personally reviewed and interpreted this examination/study. This report was electronically signed by TANVI FLORES D.O. on05/13/2021 3:03 PM . Gerald Merchant MD DEXA ORDERABLES Final Result from Last 3 Months or Most Recently Relevant to Health Maintenance Insurance [facility] [place] [id number] Care Teams Knife Glazer Relationship Specialty Start Date End Date Danny Tony MD [address] [id number] PCP - General Internal Medicine 06/25/25
--- OUTSIDE RECORDS SUMMARY | 2025-07-15 08:12 | XMS_ITS | Clinical Summary ---
Author Organization [facility] Address [address] [place] [address] Care Team Providers Care Dextrine Mixer Name Role Phone Unavailable Primary Care Provider [...] 1 - Tdap) 1971 Mammogram Screening 1992 Pneumococcal Vaccine: 50+ Ye ars (1 of 1 - PCV) 2002 Zoster Vaccines (1 of 2) 2002 Dexa Scan (General) 2017 COVID-19 Vaccine (2023-2 5 season) 2025 RSV Immunization or 60+ Years (1 - 1-dose 75+ series) 2027 Meningococcal B Vaccine Aged Out No l onger eligible based on patient's age to complete this topic Meningococcal Vaccine Aged Out No shavon micah eligible based on patient's age to complete this topic RSV Immunizations Under 20 Months Aged Out No longer eligible based on patient's age to complete this topic
--- OUTSIDE RECORDS SUMMARY | 2025-07-15 08:12 | XMS_ITS | Clinical Summary ---
Author Organization [facility] Facility Address [address] [place] [address] Care Team Providers Care Supply Chain Vice President Name Role Phone Eliana Duncan APRN Primary Care Provider [phone] Medications pantoprazole (PROTONIX) 40 MG EC tablet TAKE 1 TABLET(40 MG) BY MOUTH 1 TIME EACH DAY BEFORE BREAKFAST. DO NOT CRUSH, CHEW, OR SPLIT 90 tablet 03/18/20 25 Active Tirzepatide (Mounjaro) 7.5 MG/0.5ML solution auto-injector Inject 7.5 mg under the skin per week 12 mL 1 06/17/20 25 Active NIFEdipine XL (PROCARDIA XL) 30 MG 24 hr tablet Take 1 tablet (30 mg total) by mouth every night Do not crush, chew, or split. 90 tablet 1 06/17/20 25 Active atorvastatin (LIPITOR) 20 MG tablet Take 1 tablet (20 mg total) by mouth 1 (one) time each day 90 tablet 1 06/17/20 25 Active NIFEdipine XL (PROCARDIA XL) 30 MG 24 hr tablet Take 1 tablet (30 mg total) by mouth every night Do not crush, chew, or split. 90 tablet 1 11/19/19 25 025 Discontinu ed(Reorder (does not appear on AVS)) glipiZIDE (GLUCOTROL XL) 5 MG 24 hr tablet Take 1 tablet (5 mg total) by mouth 1 (one) time each day in the morning Do not crush, chew, or split. 90 tablet 1 11/19/19 25 025 Discontinu ed(Alterna te therapy) iron polysaccharides (NU-IRON,IFEREX) 150 MG capsule Take 1 capsule (150 mg total) by mouth 1 (one) time each day in the morning 90 capsule 1 03/18/20 25 025 Discontinu ed(Alterna te therapy) Tirzepatide (Mounjaro) 5 MG/0.5ML solution auto-injector Inject 5 mg under the skin 1 (one) time per week 20 mL 3 03/18/20 25 025 Tirzepatide (Mounjaro) 7.5 MG/0.5ML solution auto-injector Inject 7.5 mg under the skin per week 025 Discontinu ed(Reorder (does not appear on AVS)) Januvia 100 MG tablet Take 100 mg by mouth 1 (one) time each day 025 Discontinu ed(Alterna te therapy) atorvastatin (LIPITOR) 20 MG tablet Take 20 mg by mouth 1 (one) time each day 025 Discontinu ed(Reorder (does not appear on AVS)) Encounters Date Type Department Care Team Description 06/25/2025 Documentation Only [facility], [address] [address] Jono Osuna DO 06/25/2025 Documentation Only [facility], [address] [phone] Jono Osuna DO 06/17/2025 2:45 PM CDT Office Visit [facility], [facility] [address] [facility] [address] [place] [address] Jono Osuna, Stage 3 chronic kidney disease, not otherwise specified (HCC) (Primary Dx); Other iron deficiency anemia; Nonalcoholic fatty liver disease (NAFLD); Rheumatoid arthritis with rheumatoid factor of unspecified site without organ or systems involvement, not otherwise specified (HCC); Hypertensive chronic kidney disease; Type 2 diabetes mellitus with diabetic chronic kidney disease (HCC); Pure hypercholesterolemia, not otherwise specified; Other specified hypothyroidism 06/17/2025 Refill [facility], [facility] [address] [facility] [address] [place] [address] Yany Rubalcava CMA 06/10/2025 Documentation Only [address] [place] [address] Jono Osuna DO 06/04/2025 Orders Only [facility] [address] [place], [place] [address] [place] [address] Jono Osuna DO from Last 3 [...] Sign Reading Time Taken Comments Blood Pressure 148/90 06/17/2025 3:51 PM CDT Pulse 81 06/17/2025 3:51 PM CDT Temperature 36.1 C (97 F) 06/17/2025 3:51 PM CDT Respiratory Rate 18 06/17/2025 3:51 PM CDT Oxygen Saturation 99% 06/17/2025 3:51 PM CDT Inhaled Oxygen Concentration - - Weight 68 kg (150 lb) 06/17/2025 3:51 PM CDT Height 170.2 cm (5' 7) 03/18/2025 3:09 PM CDT Body Mass Index 23.49 03/18/2025 3:09 PM CDT Plan of Treatment Upcoming Encounters Date Type Department Care Team (Late st Contact Info) Description 09/23/2025 1:15 PM LEATHER PARTS MATCHER Office Visit [facility] [address] [facility] [address] [place] [address] Jono Osuna DO [address] [place] [address] [address] [place] [address] Health Maintenance Due Date Last Done Comments Breast Cancer Screening 1950 Colorectal Cancer Screening: Annual FOBT 2001 Colorectal Cancer Screening: Colonoscopy 2001 Colorectal Cancer Screening: Sigmoidoscopy 2001 Hepatitis B Vaccine (1 of 3 - Risk 3-dose series) 2012 Diabetes: Ophthalmology Exam 09/04/2024 Diabetes: Pedal Pulse Checked 09/04/2024 Diabetes: Sensory Foot Exam 09/04/2024 Diabetes: Visual Foot Exam 09/04/2024 Diabetes: Hemoglobin A1C 04/11/2025 01/09/2025 Influenza Vaccine (#1) 2025 4, 07/01/2021, 07/21/2020, Additional history exists Pneumococcal Vaccine: 50+ Years Completed 1, 08/24/2017 Procedures Procedure Name Priority Date/Time Associated Diagnosis Comments SPECIMEN STATUS REPORT Routine 06/04/2025 7:56 AM CDT URINE CULTURE Routine 06/04/2025 7:56 AM CDT FERRITIN Routine 06/04/2025 7:56 AM CDT MAGNESIUM Routine 06/04/2025 7:56 AM CDT VITAMIN D 25 HYDROXY Routine 06/04/2025 7:56 AM CDT CYSTATIN C WITH EGFR Routine 06/04/2025 7:56 AM CDT URINE ALBUMIN / CREATININE RATIO Routine 06/04/2025 7:56 AM CDT PROTEIN / CREATININE RATIO, URINE Routine 06/04/2025 7:56 AM CDT IRON PANEL (FE, TIBC, TSAT) Routine 06/04/2025 7:56 AM CDT RENAL FUNCTION PANEL Routine 06/04/2025 7:56 AM CDT URINALYSIS WITH MICROSCOPIC Routine 06/04/2025 7:56 AM CDT CBC DIFF AMBIGUOUS DEFAULT - DO NOT USE Routine 06/04/2025 7:56 AM CDT RESULT Routine 06/04/2025 7:56 AM CDT MICROSCOPIC EXAMINATION - DO NOT USE Routine 06/04/2025 7:56 AM CDT from Last 3 Months Results * (ABNORMAL) Cystatin C w/GFR (06/04/2025 7:56 AM CDT) Cystatin C 1.31(H) 0.78 - 1.15 mg/L [facility] eGFR by Cystatin C 48(L) >59 mL/min/1.7 3 [facility] 06/04/2025 7:56 AM CDT 06/03/2025 11:00 PM CDT Jono Osuna DO LAB BLOOD ORDERABLES Final R esult Performing Organization Address [facility] Co de Phone Number [facility] [address] [place] [address] * SPECIMEN STATUS REPORT (06/04/2025 7:56 AM CDT) Specimen Status Comment [facility] Comment: Ambig Abbrev RP10 Default Ambig Abbrev RP10 Default A hand-written panel/profile was received from your office. In accordance with the [facility] Ambiguous Test Code Policy dated April 2003, we have completed your order by using the closest currently or formerly recognized AMA panel. We have assigned Renal Panel (10), Test Code #101229 to this request. If this is not the testing you wished to receive on this specimen, please contact the [facility] Client Inquiry/Technical Services Department to clarify the test order. We appreciate your business. 06/04/2025 7:56 AM CDT 06/03/2025 11:00 PM CDT Jono Osuna LAB BLOOD ORDERABLES Final R esult Performing Organization Address City/[facility] Co de Phone Number [facility] [address] [place] [address] * (ABNORMAL) Result (06/04/2025 7:56 AM CDT) Result Klebsiella pneumoniae(A) [facility] [place] Comment: Cefazolin with an LEVY <=16 predicts susceptibility to the oral agents cefaclor, cefdinir, cefpodoxime, cefprozil, cefuroxime, cephalexin, and loracarbef when used for therapy of uncomplicated urinary tract infections due to E. coli, Klebsiella pneumoniae, and Proteus mirabilis. Greater than 100,000 colony forming units per mL ANTIMICROBIAL SUSCEPTIBILITY Comment [facility] Comment: S = Susceptible; I = Intermediate; R = Resistant P = Positive; N = Negative MICS are expressed in micrograms per mL Antibiotic RSLT#1 RSLT#2 RSLT#3 RSLT#4 Amoxicillin/Clavulanic Acid S Ampicillin R Cefazolin S Cefepime S Cefoxitin S Cefpodoxime S Ceftriaxone S Ciprofloxacin S Ertapenem S Gentamicin S Levofloxacin S Meropenem S Nitrofurantoin I Piperacillin/Tazobactam S Tetracycline S Tobramycin S Trimethoprim/Sulfa S 06/04/2025 7:56 AM CDT 06/03/2025 11:00 PM CDT Jono Osuna DO LAB MICROBIOLOGY - GENERAL O RDERABLES Final Result [facility] [address] [place] [address] * Microscopic Examination (06/04/2025 7:56 AM CDT) WBC, Urine None seen 0 - 5 /hpf [facility] [place] RBC, Urine 0-2 0 - 2 /hpf [facility] [place] Squamous Epithelial, Urine 0-10 0 - 10 /hpf [facility] Casts None seen None seen /lpf [facility] Bacteria, Urine Few None seen/[facility] 06/04/2025 7:56 AM CDT 06/03/2025 11:00 PM CDT Jono Osuna DO LAB MICROBIOLOGY - GENERAL O RDERABLES Final Result [facility] [address] [place] [address] * (ABNORMAL) CBC Diff Ambiguous Default (06/04/2025 7:56 AM CDT) WBC 5.3 3.4 - 10.8 x10E3/uL [facility] RBC 5.49(H) 3.77 - 5.28 x10E6/uL [facility] Hemoglobin 13.8 11.1 - 15.9 g/dL [facility] Hematocrit 44.4 34.0 - 46.6 % [facility] MCV 81 79 - 97 fL [facility] MCH 25.1(L) 26.6 - 33.0 pg [facility] MCHC 31.1(L) 31.5 - 35.7 g/dL [facility] RDW 22.7(H) 11.7 - 15.4 % [facility] Platelets 234 150 - 450 x10E3/uL [facility] Neutrophils Relative 67 Not Estab. % [facility] Lymphocytes Relative 20 Not Estab. % [facility] Monocytes 7 Not Estab. % [facility] Eosinophils Relative 4 Not Estab. % [facility] Basophils Relative 2 Not Estab. % [facility] Neutrophils Absolute 3.5 1.4 - 7.0 x10E3/uL [facility] Lymphocytes Absolute 1.0 0.7 - 3.1 x10E3/uL [facility] Monocytes Absolute 0.4 0.1 - 0.9 x10E3/uL [facility] [place] Eosinophils Absolute 0.2 0.0 - 0.4 x10E3/uL [facility] [place] Basophils Absolute 0.1 0.0 - 0.2 x10E3/uL [facility] Immature Granulocytes 0 Not Estab. % [facility] Immature Grans (Absolute) 0.0 0.0 - 0.1 x10E3/uL [facility] Comment: Note: [facility] [place] Comment: Verified by microscopic examination. A hand-written panel/profile was received from your office. In accordance with the [facility] Ambiguous Test Code Policy dated April 2003, we have assigned CBC with Differential/Platelet, Test Code #400447 to this request. If this is not the testing you wished to receive on this specimen, please contact the [facility] Client Inquiry/ Technical Services Department to clarify the test order. We appreciate your business. 06/04/2025 7:56 AM CDT 06/03/2025 11:00 PM CDT us Jono Osuna DO LAB BLOOD ORDERABLES Final R esult [facility] [address] [place] [address] * Iron Panel (Fe, TIBC, TSAT) (06/04/2025 7:56 AM CDT) TIBC 313 250 - 450 ug/dL [facility] UIBC 225 118 - 369 ug/dL [facility] Iron 88 27 - 139 ug/dL [facility] Iron Saturation (TSat) 28 15 - 55 % [facility] 06/04/2025 7:56 AM CDT 06/03/2025 11:00 PM CDT Jono Osuna DO LAB BLOOD ORDERABLES Final R esult Performing Organization Address [facility] Co de Phone Number [facility] [place] [address] [place] [address] * (ABNORMAL) Protein, Total, Random Urine w/Creatinine (Protein/Creat Ratio) (06/04/2025 7:56 AM CDT) Creatinine, Ur 76.1 Not Estab. mg/dL [facility] Protein, Ur 27.5 Not Estab. mg/dL [facility] Urine Protein/Creati nine Ratio 361(H) 0 - 200 mg/g creat [facility] 06/04/2025 7:56 AM CDT 06/03/2025 11:00 PM CDT Jono Osuna DO LAB URINE ORDERABLES Final R esult Performing Organization Address City/[facility]/ZIP Co de Phone Number [facility] [address] [place] [address] * (ABNORMAL) Urine Albumin / Creatinine Ratio (06/04/2025 7:56 AM CDT) Albumin, Urine 52.6 Not Estab. ug/mL [facility] Albumin/Creatin ine Ratio 69(H) 0 - 29 mg/g creat [facility] Comment: Normal: 0 - 29 Moderately increased: 30 - 300 Severely increased: >300 06/04/2025 7:56 AM CDT 06/03/2025 11:00 PM CDT Jono J Osuna DO LAB URINE ORDERABLES Final R esult Performing Organization Address City/[facility]/ZIP Co de Phone Number [email or web address] [address] [place] [address] * Vitamin D 25 Hydroxy (06/04/2025 7:56 AM CDT) Vitamin D, 25-OH, Total 54.6 30.0 - 100.0 ng/mL [facility] Comment: Vitamin D deficiency has been defined by the [place] of Medicine and an Endocrine Society practice guideline as a level of serum 25-OH vitamin D less than 20 ng/mL (1,2). The Endocrine Society went on to further define vitamin D insufficiency as a level between 21 and 29 ng/mL (2). 1. IOM ([place] of Medicine). 2010. Dietary reference intakes for calcium and D. [place]: The National Academies Press. 2. Melinda MF, Michelle TORRES, Orquidea BAPTISTE, et al. Evaluation, treatment, and prevention of vitamin D deficiency: an Endocrine Society clinical practice guideline. JCEM. 2010; 96(7):1911-30. 06/04/2025 7:56 AM CDT 06/03/2025 11:00 PM CDT Jono Osuna DO LAB BLOOD ORDERABLES Final R esult Performing Organization Address City/[facility] Co de Phone Number [email or web address] [address] [place] [address] * Urinalysis with microscopic (06/04/2025 7:56 AM CDT) Specific Byars, Urine 1.012 1.005 - 1.030 [facility] [phone] pH Urine 6.5 5.0 - 7.5 [facility] [phone] Color, Urine Yellow Yellow [facility] Appearance Urine Clear Clear [facility] [phone] WBC Esterase Urine Negative Negative [facility] Protein, Ur Trace Negative/Tra ce [facility] [phone] Glucose, Ur Negative Negative [facility] [phone] Ketones, Urine Negative Negative [facility] [place] [phone] Blood Urine Negative Negative [facility] [phone] Bilirubin Urine Negative Negative [facility] [place] [phone] Urobilinogen Urine 0.2 0.2 - 1.0 mg/dL [facility] [phone] Nitrite, Urine Negative Negative [facility] [phone] Microscopic Examination Comment [facility] Comment:Microscopic follows if indicated. Other Microsc. Observations See below: [facility] Comment:Microscopic was abdoul cated and was performed. 06/04/2025 7:56 AM CDT 06/03/2025 11:00 PM CDT Jono Osuna DO LAB URINE ORDERABLES Final R esult [facility] [address] [place] [address] * (ABNORMAL) Urine Culture (06/04/2025 7:56 AM CDT) Culture Result, Urine Final report(A) [facility] 06/04/2025 7:56 AM CDT 06/03/2025 11:00 PM CDT Comment:UC Jono Osuna DO LAB URINE ORDERABLES Final R esult [facility] [address] [place] [address] * Magnesium (06/04/2025 7:56 AM CDT) Magnesium 2.1 1.6 - 2.3 mg/dL [facility] 06/04/2025 7:56 AM CDT 06/03/2025 11:00 PM CDT Jono Osuna DO LAB BLOOD ORDERABLES Final R esult Performing Organization Address City/[facility]/ZIP Co de Phone Number [facility] [address] [place] [address] * Ferritin (06/04/2025 7:56 AM CDT) Ferritin 129 15 - 150 ng/mL [facility] 06/04/2025 7:56 AM CDT 06/03/2025 11:00 PM CDT Jono Osuan DO LAB BLOOD ORDERABLES Final R esult Performing Organization Address City/[facility] Co de Phone Number [facility] [address] [place] [address] * (ABNORMAL) Renal Function Panel (06/04/2025 7:56 AM CDT) Glucose 168(H) 70 - 99 mg/dL [facility] BUN 4(L) 8 - 27 mg/dL [facility] Creatinine 0.80 0.57 - 1.00 mg/dL [facility] eGFR CKD-EPI CR 2020 78 >59 mL/min/1.7 3 [facility] BUN/Creatinine Ratio 5(L) 12 - 28 [facility] Sodium 137 134 - 144 mmol/L [facility] Potassium 4.1 3.5 - 5.2 mmol/L [facility] Chloride 100 96 - 106 mmol/L [facility] Bicarbonate (CO2) 20 20 - 29 mmol/L [facility] Calcium 9.0 8.7 - 10.3 mg/dL [facility] Phosphorus 3.0 3.0 - 4.3 mg/dL [facility] Albumin 4.3 3.8 - 4.8 g/dL [facility] 06/04/2025 7:56 AM CDT 06/03/2025 11:00 PM CDT us Jono Osuna DO LAB BLOOD ORDERABLES Final R esult [facility] [address] [place] [address] from Last 3 Months Insurance * Guarantor: Kianna Hill Account Type Relation to Patient Date of Phone Billing Address Personal/Family Self 1950 [address] Medicare Advance Directives Documents on File Type Date Recorded Patient Track Service Worker Expl anation Advance Care Planning 01/09/2025 11:32 AM Care Teams Supply Chain Vice President Relationship Specialty Start Date End Date Eliana Duncan APRN [place] [facility] [address] [facility] [place] [address] PCP - General 09/02/24
--- OUTSIDE RECORDS SUMMARY | 2025-07-15 08:12 | XMS_ITS | Encounter Summary ---
Author Organization [facility] Address [address] [facility] [place] [address] Care Team Providers Care Gold And Silver Assayer Name Role Phone Tanya Jane MD Primary Care Provider [phone] Eliana Mcneal Primary Care Provider [phone] Dennis Davidson MD Unavailable Danny Tony MD Primary Care Provider Encounter Details Date Type Department Care Team (Late st Contact Info) Description 01/04/2022 Telephone [facility] - Third Level [address] [place] [address], [place] [phone] Lisette Choe MD No info available Social History Tobacco Use Types Packs/Day Years Used Date Smoking Tobacco: Former Smokeless Tobacco: Never Alcohol Use Standard Drinks/Week Comments Yes 1 (1 standard drink = 0.6 oz pur e alcohol) occaisionally Comments No Sex and Gender Information Value Date Recorded Sex Assigned at Not on file Legal Sex Female 5:23 PM PALLIATIVE MEDICINE PHYSICIAN Gender Identity Not on file Sexual Orientation [...] to reschedule appt. Patient Call Back number: [phone] documented in this encounter Plan of Treatment Upcoming Encounters Date Type Department Care Team (Late st Contact Info) Description 07/16/2025 12:30 PM CDT Procedure visit [facility] - [address], [place] [address] 07/16/2025 12:30 PM CDT Office Visit [facility] - GI [address] [place] [address], [place] [phone] Thalia Dunlap MD [address] [place] [address] [address] [place] [phone] 07/16/2025 1:00 PM CDT Office Visit [facility] - [address], [place] [address] Matias Lewis III, MD [address] [place] [address] [address] [place] [phone] 07/21/2025 1:00 PM CDT Office Visit [facility] - Rheumatology [address] [place] [address], [place] [phone] Mariam Borges MD [address] [place] [address] [place] [address] documented as of this encounter Visit Diagnoses Not on filedocumented in this encounter Care Teams Gold And Silver Assayer Relationship Specialty Start Date End Date Tanya Jane MD [address] [place] [address] [place] [phone] PCP - General 01/05/18 07/09/24 Eliana Mcneal [address] [place] [address] PCP - General 07/10/24 06/24/25 Dennis Davidson MD [address] [address] PCP - Attributed-[facility] P[facility]P 12/21/24 03/09/25 Danny Tony MD [address] [phone] PCP - General Internal Medicine 06/25/25 documented as of this encounter
--- OUTSIDE RECORDS SUMMARY | 2025-07-15 08:12 | XMS_ITS | Clinical Summary ---
Author Organization [facility] [address] Address [address] [place] [address] Care Team Providers Care Paint Mixer Machine Name Role Phone Eliana Mcneal NP Primary Care Provider [phone] Allergies Active Allergy Reactions Criticality Noted Date [...] Active Problems Problem Noted Date Diagnosed Date Anemia of chronic renal failure, stage 3 (modera te) 03/19/2025 Iron deficiency anemia, unspecified 08/29/2024 Chest pain 07/05/2021 Hypertension associated with diabetes 07/05/2021 Mixed diabetic hyperlipidemi a associated with type 2 diabetes mellitus 07/05/2021 Rheumatoid arthritis 07/05/2021 Chronic fatigue 07/05/2021 History of tobacco abuse 07/05/2021 Marijuana use 07/05/2021 Encounters Date Type Department Care Team Description 04/17/2025 1:00 PM CDT Infusion [facility] [address] [place] [address] [place] [phone] Anemia of chronic renal failure, stage 3 (moderate), unspecified whether stage 3a or 3b CKD (HCC) (Primary Dx); Iron deficiency anemia, unspecified iron deficiency anemia type from Last 3 Months Surgical History Surgery Date Site/Laterality Comments TONSILLECTOMY STOMACH SURGERY HERNIA REPAIR Medical History Medical History Date Comments Thyroid disease Diabetes mellitus (HCC) Vitamin D deficiency Hyperlipidemia Hypertension Arthritis Porokeratosis Neuropathy Anxiety and depression Family History Medical History [...] on file Legal Sex Female 9:57 PM TOURS HOSTESS Gender Identity Not on file Sexual Orientation Not on file Obstetrics History Last Filed Vital Signs Vital Sign Reading Time Taken Comments Blood Pressure 164/74 04/17/2025 12:38 PM CDT Pulse 78 04/17/2025 12:38 PM CDT Temperature 36.3 C (97.3 F) 04/17/2025 12:38 PM CDT Respiratory Rate 18 04/17/2025 12:38 PM CDT Oxygen Saturation 100% 04/17/2025 12:38 PM CDT Inhaled Oxygen Concentration - - Weight 74.4 kg (164 lb) 09/02/2024 9:32 AM TOURS HOSTESS Height 170.2 cm (5' 7) 09/02/2024 9:32 AM TOURS HOSTESS Body Mass Index 25.69 09/02/2024 9:32 AM TOURS HOSTESS Plan of Treatment Health Maintenance Due Date Last Done Comments Albumin Creatinine Ratio, Urine 1950 Breast Cancer Screening-Mammogram 1950 Colon Cancer Screening-Colonoscopy 1950 Depression Screening 1950 Fall Risk Assessment 1950 Hepatitis C Screening 1950 eGFR 1950 Dilated Eye Exam 1950 Foot Exam 1950 DTaP/Tdap/Td Vaccine (1 - Tdap) 1963 Hepatitis B Screening 1970 Zoster Vaccine (1 of 2) 2002 Well Visit 65+ 2017 Covid-19 Vaccine (3 - Modern a risk series) 02/26/2021 01/29/2021, 01/01/2021 Osteoporosis Screening-Bone Density Scan 05/13/2023 05/13/2021, 05/13/2021 Influenza Vaccine (#1) 2025 , 07/01/2021, 07/21/2020, Additional history exists Hemoglobin A1C 07/12/2025 01/09/2025, 12/15/2022 Lipid Panel 09/02/2025 09/02/2024, 07/25, 2022, Additional history exists Pneumococcal vaccine 65+ Completed 12/02/2020, 11/2016 Procedures Procedure Name Priority Date/Time Associated Diagnosis Comments POCT LIPID PANEL Routine 09/02/2024 9:26 AM TOURS HOSTESS Mixed diabetic hyperlipidemia associated with type 2 diabetes mellitus (HCC) from Last 3 Months or Most Recently Relevant to Health Maintenance Results * POCT lipid panel (09/02/2024 9:26 AM TOURS HOSTESS) Cholesterol, POC 101 mg/dL HDL, POC 46 mg/dL Triglycerides, POC 86 mg/dL LDL Cholesterol POC 38 mg/dL Chol/HDL Ratio, POC 0.8 Non-HDL Cholesterol, POC 56 mg/dL Cholesterol Total, POC 101 mg/dL Capillary blood 09/02/2024 9 :26 AM TOURS HOSTESS us Nam Moore MD POINT OF CARE TEST O RDERABLES Final Result from Last 3 Months or Most Recently Relevant to Health Maintenance Insurance [facility] Address: [address] [place] [phone] [facility]IC[facility] Address: [address] [address] [place] [address] Care Teams Paint Mixer Machine Relationship Specialty Start Date End Date Eliana Mcneal NP [address] [facility] [address] [place] [address] PCP - General Family Medicine 09/02/24
--- OUTSIDE RECORDS SUMMARY | 2025-07-15 08:12 | XMS_ITS | Encounter Summary ---
Author Organization [facility] Health Address [address] [place] [address] Care Team Providers Care Airport Skilled Maintenance Supervisor Name Role Phone Tanya Jane MD Primary Care Provider [phone] Eliana Mcneal Primary Care Provider [phone] Dennis Davidson MD Unavailable Danny Tony MD Primary Care Provider Encounter Details Date Type Department Care Team ([facility] Contact Info) Description 04/21/2023 Telephone [facility] - Centralized Scheduling [address] [place] [address] Dennis Davidson MD [address] [place] [address] Social History Tobacco Use Types Packs/Day Years Used Date Smoking Tobacco: Former Smokeless Tobacco: Never Alcohol Use Standard Drinks/Week Comments Yes 1 (1 standard drink = 0.6 oz pur e alcohol) occaisionally PHQ-2 Answer Date Recorded PHQ2 TOTAL SCORE 0 09/20/2022 Comments No Sex and Gender Information Value Date Recorded Sex Assigned at Not on file 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 No / Unsure 04/21/2023 9:52 AM CDT documented as of this encounter Plan of Treatment Upcoming Encounters Date Type Department Care Team ([facility] Contact Info) Description 07/16/2025 12:30 PM CDT Procedure visit [facility] - GI [address] [place] [place] [address], [place] [phone] 07/16/2025 12:30 PM CDT Office Visit [facility] GI [address] [place] [place] [address], [place] [phone] Thalia Dunlap MD [address] [place] [address] [address] [place] [phone] 07/16/2025 1:00 PM CDT [facility] [address], [place] [address] Matias Lewis III, MD [address] [place] [address] [address] [place] [address] 07/21/2025 1:00 PM CDT Office Visit [facility] - Rheumatology [address] [place] [place] [address], [place] [address] Mariam Borges MD [address] [place] [address] [place] [address] documented as of this encounter Visit Diagnoses Not on filedocumented in this encounter Care Teams Airport Skilled Maintenance Supervisor Relationship Specialty Start Date End Date Tanya Jane MD [address] [place] [address] [place] [address] PCP - General 01/05/18 07/09/24 Eliana Mcneal [address] [place] [phone] PCP - General 07/10/24 06/24/25 Dennis Davidson MD [address] [place] [address] [address] [place] [address] PCP - Attributed-[facility] 12/21/24 03/09/25 Danny Tony MD [address] [phone] PCP - General Internal Medicine 06/25/25 documented as of this encounter
== END 2025-07-15 07:58 | disposition home or self-care (01) ==
PROVIDERS: PCP Internal Medicine; Visit Provider Internal Medicine
DX: R74.8 Abnormal levels of other serum enzymes (principal); K74.60 Unspecified cirrhosis of liver; K76.0 Fatty (change of) liver, not elsewhere classified
CPT/HCPCS: 76705

== ENCOUNTER 2025-07-29 14:19 | Outpatient (CLI) | payer MEDICARE, MEDICAID, SELFPAY ==
--- NOTE | ~2025-07-29 | US_ITS ---
Clinical history:Hypothyroidism EXAM:Ultrasound thyroid TECHNIQUE:Multiple static grayscale images and color images of the thyroid gland were obtained. Comparisons:None available FINDINGS: Right thyroid lobe measures 3.7 x 1.2 x 1.3 cm and is heterogeneous. Left thyroid lobe measures 3.6 x 0.9 x 1.0 cm and is heterogeneous. Isthmus measures 0.3 cm and is heterogeneous. Prominent vascular flow throughout the thyroid gland. There is a 0.5 x 0.5 x 0.3 cm solid isoechoic nodule in the right thyroid lobe. TR 3. There is a 1.0 x 0.6 x 0.5 cm hypoechoic solid nodule in the left thyroid lobe. IMPRESSION: 1.There is a 1.0 cm nodule in the left thyroid lobe. TR4. A follow-up thyroid ultrasound in 6 months is recommended. 2.There is a 0.5 cm nodule in the right thyroid lobe. TR 4. Attention on follow- up imaging. 3. There gland is heterogeneous with prominent vascular flow. Consider thyroiditis. Reviewed, dictated and finalized at location Q. IMPRESSION: 1.There is a 1.0 cm nodule in the left thyroid lobe. TR4. A follow-up thyroid u ltrasound in 6 months is recommended. 2.There is a 0.5 cm nodule in the right thyroid lobe. TR 4. Attention on follow -up imaging. 3. There gland is heterogeneous with prominent vascular flow. Consider thyroidi tis.
--- OUTSIDE RECORDS SUMMARY | 2025-07-29 15:16 | XMS_ITS | Clinical Summary ---
Author Organization [facility] Facility Address [address] [address] Care Team Providers Care Shipping & Receiving Lead Name Role Phone Eliana Duncan APRN Primary Care Provider [phone] Medications pantoprazole (PROTONIX) 40 MG EC tablet TAKE 1 TABLET(40 MG) BY MOUTH 1 TIME EACH DAY BEFORE BREAKFAST. DO NOT CRUSH, CHEW, OR SPLIT 90 tablet 03/18/2025 Active Tirzepatide (Mounjaro) 7.5 MG/0.5ML solution auto-injector Inject 7.5 mg under the skin per week 12 mL 1 06/17/2025 Active NIFEdipine XL (PROCARDIA XL) 30 MG 24 hr tablet Take 1 tablet (30 mg total) by mouth every night Do not crush, chew, or split. 90 tablet 1 06/17/2025 Active atorvastatin (LIPITOR) 20 MG tablet Take 1 tablet (20 mg total) by mouth 1 (one) time each day 90 tablet 1 06/17/2025 Active Encounters Date Type Department Care Team Description 06/25/2025 Documentation Only [place], [address] [address] Jono Osuna DO 06/25/2025 Documentation Only [place], [address] [address] Jono Osuna DO 06/17/2025 2:45 PM CDT Office Visit [facility], [facility] [address] [facility] [address] [place] [address] Jono Osuna, Stage 3 chronic [...] otherwise specified; Other specified hypothyroidism 06/17/2025 Refill [place], [facility] [address] [facility] [address] [place] [address] Yany Rubalcava CMA 06/10/2025 Documentation Only [facility], [facility] [address] [place] [address] Jono Osuna DO 06/04/2025 Orders Only [facility], [address] [address] Jono Osuna DO from Last [...] st Contact Info) Description 09/23/2025 1:15 PM EDUCATIONAL DIRECTOR Office Visit [place] [facility], [facility] [address] [facility] [address] [place] [address] Jono Osuna DO [facility] [address] [phone] Health Maintenance Due Date Last Done Comments [...] Cystatin C 1.31(H) 0.78 - 1.15 mg/L [facility] eGFR by Cystatin C 48(L) >59 mL/min/1.7 3 [facility] 06/04/2025 7:56 AM CDT 06/03/2025 11:00 PM CDT us Jono Osuna DO LAB BLOOD ORDERABLES Final R esult [facility] [address] [place] [address] * SPECIMEN STATUS REPORT (06/04/2025 7:56 AM CDT) Specimen Status Comment [facility] Comment: Ambig Abbrev RP10 Default Ambig Abbrev RP10 Default A hand-written panel/profile was received from your office. In accordance with the [facility] Ambiguous Test Code Policy dated April 2003, we have completed your order by using the closest currently or formerly recognized AMA panel. We have assigned Renal Panel (10), Test Code #186006 to this request. If this is not the testing you wished to receive on this specimen, please contact the [facility] Client Inquiry/Technical Services Department to clarify the test order. We appreciate your business. 06/04/2025 7:56 AM CDT 06/03/2025 11:00 PM CDT Jono Osuna DO LAB BLOOD ORDERABLES Final R esult Performing Organization Address [facility] Co de Phone Number [facility] [address] [place] [address] * (ABNORMAL) Result (06/04/2025 7:56 AM CDT) Result Klebsiella pneumoniae(A) [facility] [phone] Comment: Cefazolin with an LEVY <=16 predicts susceptibility to the oral agents cefaclor, cefdinir, cefpodoxime, cefprozil, cefuroxime, cephalexin, and loracarbef when used for therapy of uncomplicated urinary tract infections due to E. coli, Klebsiella pneumoniae, and Proteus mirabilis. Greater than 100,000 colony forming units per mL ANTIMICROBIAL SUSCEPTIBILITY Comment [facility] [phone] Comment: S = Susceptible; I = Intermediate; [...] MICROBIOLOGY - GENERAL O RDERABLES Final Result Performing Organization Address City/[facility]/ZIP Co de Phone Number [facility] [address] [place] [address] * Microscopic Examination (06/04/2025 7:56 AM CDT) WBC, Urine None seen 0 - 5 /hpf [facility] RBC, Urine 0-2 0 - 2 /hpf [facility] Squamous Epithelial, Urine 0-10 0 - 10 /hpf [facility] Casts None seen None seen /lpf [facility] Bacteria, Urine Few None seen/Few [facility] 06/04/2025 7:56 AM CDT 06/03/2025 11:00 PM CDT Jono Osuna DO LAB MICROBIOLOGY - GENERAL O RDERABLES Final Result [facility] [address] [place] [address] * (ABNORMAL) CBC Diff Ambiguous Default (06/04/2025 7:56 AM CDT) Pathologist [facility] WBC 5.3 3.4 - 10.8 x10E3/uL [facility] RBC 5.49(H) 3.77 - 5.28 x10E6/uL [facility] Hemoglobin 13.8 11.1 - 15.9 g/dL [facility] Hematocrit 44.4 34.0 - 46.6 % [facility] MCV 81 79 - 97 fL [facility] MCH 25.1(L) 26.6 - 33.0 pg [facility] MCHC 31.1(L) 31.5 - 35.7 g/dL [facility] RDW 22.7(H) 11.7 - 15.4 % [facility] Platelets 234 150 - 450 x10E3/uL [facility] Neutrophils Relative 67 Not Estab. % [facility] Lymphocytes Relative 20 Not Estab. % [facility] Monocytes 7 Not Estab. % [facility] Eosinophils Relative 4 Not Estab. % [facility] Basophils Relative 2 Not Estab. % [facility] Neutrophils Absolute 3.5 1.4 - 7.0 x10E3/uL [facility] Lymphocytes Absolute 1.0 0.7 - 3.1 x10E3/uL [facility] Monocytes Absolute 0.4 0.1 - 0.9 x10E3/uL [facility] Eosinophils Absolute 0.2 0.0 - 0.4 x10E3/uL [facility] Basophils Absolute 0.1 0.0 - 0.2 x10E3/uL [facility] Immature Granulocytes 0 Not Estab. % [facility] Immature Grans (Absolute) 0.0 0.0 - 0.1 x10E3/uL [facility] Comment: Note: [facility] Comment: Verified by microscopic examination. A hand-written panel/profile was received from your office. In accordance with the [facility] Ambiguous Test Code Policy dated April 2003, we have assigned CBC with Differential/Platelet, Test Code #421506 to this request. If this is not the testing you wished to receive on this specimen, please contact the [facility] Client Inquiry/ Technical Services Department to clarify the test order. We appreciate your business. 06/04/2025 7:56 AM CDT 06/03/2025 11:00 PM CDT us Jono Osuna DO LAB BLOOD ORDERABLES Final R esult [facility] [address] [place] [address] * Iron Panel (Fe, TIBC, TSAT) (06/04/2025 7:56 AM CDT) TIBC 313 250 - 450 ug/dL [facility] UIBC 225 118 - 369 ug/dL [facility] Iron 88 27 - 139 ug/dL [facility] Iron Saturation (TSat) 28 15 - 55 % [facility] 06/04/2025 7:56 AM CDT 06/03/2025 11:00 PM CDT us Jono Osuna DO LAB BLOOD ORDERABLES Final R esult Performing Organization Address [facility] de Phone Number [facility] [address] [place] [address] * (ABNORMAL) Protein, Total, Random Urine w/Creatinine (Protein/Creat Ratio) (06/04/2025 7:56 AM CDT) Creatinine, Ur 76.1 Not Estab. mg/dL [facility] Protein, Ur 27.5 Not Estab. mg/dL [facility] Urine Protein/Creati nine Ratio 361(H) 0 - 200 mg/g creat [facility] 06/04/2025 7:56 AM CDT 06/03/2025 11:00 PM CDT Jono Osuna DO LAB URINE ORDERABLES Final R esult Performing Organization Address City[facility]/ZIP Co de Phone Number [facility] [address] [place] [address] * (ABNORMAL) Urine Albumin / Creatinine Ratio (06/04/2025 7:56 AM CDT) Albumin, Urine 52.6 Not Estab. ug/mL [facility] Albumin/Creatin ine Ratio 69(H) 0 - 29 mg/g creat [facility] Comment: Normal: 0 - 29 Moderately increased: 30 - 300 Severely increased: >300 06/04/2025 7:56 AM CDT 06/03/2025 11:00 PM CDT Jono Osuna DO LAB URINE ORDERABLES Final R esult [facility] [address] [place] [address] * Vitamin D 25 Hydroxy (06/04/2025 7:56 AM CDT) Vitamin D, 25-OH, Total 54.6 30.0 - 100.0 ng/mL [facility] Comment: Vitamin D deficiency has been defined by the [employer] and an Endocrine Society practice guideline as a level of serum 25-OH vitamin D less than 20 ng/mL (1,2). The Endocrine Society went on to further define vitamin D insufficiency as a level between 21 and 29 ng/mL (2). 1. IOM ([employer]). 2010. Dietary reference intakes for calcium and D. [place]: The National Academies Press. 2. Melinda MF, Michelle NC, Orquidea BAPTISTE, et al. Evaluation, treatment, and prevention of vitamin D deficiency: an Endocrine Society clinical practice guideline. JCEM. 2010; 96(7):1911-30. 06/04/2025 7:56 AM CDT 06/03/2025 11:00 PM CDT Jono Osuna DO LAB BLOOD ORDERABLES Final R esult [facility] [address] [place] [address] * Urinalysis with microscopic (06/04/2025 7:56 AM CDT) Specific [place], Urine 1.012 1.005 - 1.030 [facility] [phone] pH Urine 6.5 5.0 - 7.5 [facility] Color, Urine Yellow Yellow [facility] [phone] Appearance Urine Clear Clear [facility] [phone] WBC Esterase Urine Negative Negative [facility] [phone] Protein, Ur Trace Negative/Tra ce [facility] [phone] Glucose, Ur Negative Negative [facility] [phone] Ketones, Urine Negative Negative [facility] [phone] Blood Urine Negative Negative [facility] [phone] Bilirubin Urine Negative Negative [facility] [phone] Urobilinogen Urine 0.2 0.2 - 1.0 mg/dL [facility] [phone] Nitrite, Urine Negative Negative [facility] [phone] Microscopic Examination Comment [facility] Comment:Microscopic follows if indicated. Other Microsc. Observations See below: [facility] Comment:Microscopic was abdoul cated and was performed. 06/04/2025 7:56 AM CDT 06/03/2025 11:00 PM CDT us Jono Osuna DO LAB URINE ORDERABLES Final R esult [facility] [address] [place] [address] * (ABNORMAL) Urine Culture (06/04/2025 7:56 AM CDT) Culture Result, Urine Final report(A) [facility] 06/04/2025 7:56 AM CDT 06/03/2025 11:00 PM CDT Comment: Jono Osuna DO LAB URINE ORDERABLES Final R esult Performing Organization Address [facility] Co de Phone Number [facility] [address] [place] [address] * Magnesium (06/04/2025 7:56 AM CDT) Magnesium 2.1 1.6 - 2.3 mg/dL [facility] 06/04/2025 7:56 AM CDT 06/03/2025 11:00 PM CDT Jono Osuna DO LAB BLOOD ORDERABLES Final R esult Performing Organization Address [facility] de Phone Number [facility] [address] [place] [address] * Ferritin (06/04/2025 7:56 AM CDT) Ferritin 129 15 - 150 ng/mL [facility] 06/04/2025 7:56 AM CDT 06/03/2025 11:00 PM CDT Jono Osuna DO LAB BLOOD ORDERABLES Final R esult Performing Organization Address [facility] de Phone Number [facility] [address] [place] [address] * (ABNORMAL) Renal Function Panel (06/04/2025 7:56 AM CDT) Glucose 168(H) 70 - 99 mg/dL [facility] BUN 4(L) 8 - 27 mg/dL [facility] Creatinine 0.80 0.57 - 1.00 mg/dL [facility] eGFR CKD-EPI CR 2020 78 >59 mL/min/1.7 3 [facility] BUN/Creatinine Ratio 5(L) 12 - 28 [facility] Sodium 137 134 - 144 mmol/L [facility] Potassium 4.1 3.5 - 5.2 mmol/L [facility] Chloride 100 96 - 106 mmol/L [facility] Bicarbonate (CO2) 20 20 - 29 mmol/L [facility] Calcium 9.0 8.7 - 10.3 mg/dL [facility] Phosphorus 3.0 3.0 - 4.3 mg/dL [facility] Albumin 4.3 3.8 - 4.8 g/dL [facility] 06/04/2025 7:56 AM CDT 06/03/2025 11:00 PM CDT us Jono Osuna DO LAB BLOOD ORDERABLES Final R esult [facility] [address] [place] [address] from Last 3 Months Insurance * Guarantor: Kianna Hill Account Type Relation to Patient Date of Phone Billing Address Personal/Family Self 1950 [address] Medicare Advance Directives Documents on File Type Date Recorded 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
--- OUTSIDE RECORDS SUMMARY | 2025-07-29 15:16 | XMS_ITS | Clinical Summary ---
Author Organization [facility] Address [address] [place] [address] Care Team Providers Care Automatic Grinding Machine Operator Name Role Phone Danny Tony MD Primary Care Provider Source Comments [facility],non-owned Affiliates and Associated Physician Practices is amultiple site organization consisting of ambulatory clinics and hospital sitesin [place], [place], [place] and [place]. This disclosure is being madepursuant to the Care Everywhere program and may not contain all information available regarding this patient. Last updated 18.[facility] Allergies Active Allergy Reactions Criticality Noted Date Comments Codeine Nausea and/or Vomiting Low 2016 Medications * Be aware that medications may not be up to date on this document. Alwaysverify current medications with the patient. metFORMIN (GLUCOPHAGE) 1000 MG tablet Take 1 (one) tablet by mouth BID 2 12/18/19 18 Active levothyroxine (SYNTHROID) 75 MCG tablet Take 1 (one) tablet by mouth DAILY 08/02/20 16 Active losartan (COZAAR) 100 MG tablet Take 1 (one) tablet by mouth once daily 4 03/21/20 18 Active ONETOUCH VERIO test strip Use 1 (one) strip as directed 4 03/09/20 18 Active omeprazole (PRILOSEC) 40 MG capsuleIndicati ons:Erosive Esophagitis Take 1 (one) capsule by mouth 2 times daily, before breakfast and supper Reasons: Esophagus Inflammation with Erosion Active Mounjaro 5 MG/0.5ML injection Inject 0.5 mL subcutaneously every 7 days 09/01/20 22 Active aspirin EC (Ecotrin) 81 MG tablet Take 1 (one) tablet by mouth every 24 hours Active vitamin D, ergocalciferol, (Drisdol) 1.25 MG (33686 UT) capsule Take 1 (one) capsule by mouth every 7 days (once a week) 10/06/20 22 Active leflunomide (Arava) 20 MG tablet Take 1 (one) tablet by mouth once daily Active nitroGLYCERIN (Nitrostat) 0.4 MG tablet Dissolve 1 (one) tablet under the tongue 08/21/20 23 Active NIFEdipine CR osmotic 24hr (Procardia-XL) 30 MG tablet Take 1 (one) tablet by mouth at bedtime 11/19/19 25 Active Enbrel SureClick 50 MG/ML auto-injector penIndications: Seropositive erosive rheumatoid arthritis (HCC) ADMINISTER 1 ML UNDER THE SKIN EVERY 7 DAYS 4 mL 1 06/16/20 25 Active atorvastatin (Lipitor) 20 MG tablet Take 1 (one) tablet by mouth at bedtime Active simvastatin (ZOCOR) 20 MG tablet Take 1 (one) tablet by mouth 07/23/20 16 025 Discontin ued(List Clean-Up) GLIPIZIDE XL 10 MG tablet Take 1 (one) tablet by mouth 2 times daily 3 06/05/20 18 025 Discontin ued(List Clean-Up) hydroxychloroqu ine (Plaquenil) 200 MG tabletIndicatio ns: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 arthritis (HCC),Therapeut ic drug monitoring,High risk medication use TAKE 1 AND 1/2 TABLETS BY MOUTH TWICE DAILY 270 tablet 3 10/09/20 24 025 Discontin ued(List Clean-Up) ferrous sulfate 325 (65 FE) MG tablet Take 1 (one) tablet by mouth once daily 025 Discontin ued(List Clean-Up) Active Problems Problem Noted Date Diagnosed Date Rheumatoid arthritis with rheumatoid factor 04/23 Other terminal manager (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 7 Encounter for therapeutic drug level monitoring 05/12/2017 Encounters Date Type Department Care Team Description 07/21/2025 1:00 PM CDT Office Visit [facility] - Rheumatology [address] [place] [address], [place] [phone] Mariam Borges MD Seropositive erosive rheumatoid arthritis (HCC) (Primary Dx) 07/21/2025 Travel 07/16/2025 1:00 PM CDT Office Visit [facility] - GI [address] [place] [phone] Matias Lewis III, MD Overweight (Primary Dx); Type 2 diabetes mellitus with other specified complication, unspecified whether terminal manager insulin use (HCC); Metabolic syndrome; Metabolic dysfunction-associate d steatotic liver disease (MASLD) 07/16/2025 12:30 PM CDT Office Visit [facility] - GI [address] [place] [phone] Thalia Dunlap MD Metabolic dysfunction-associate d steatotic liver disease (MASLD) (Primary Dx); Metabolic syndrome; Elevated liver enzymes; Splenomegaly; Douglas grade C esophagitis 07/16/2025 12:30 PM CDT Procedure visit [facility] - [facility] [address] [place] [phone] Thalia Dunlap MD Metabolic dysfunction-associate d steatotic liver disease (MASLD) ; NAFLD (nonalcoholic fatty liver disease) 07/16/2025 Travel 06/27/2025 Travel 06/15/2025 Refill [facility] - Rheumatology [address] [place] [phone] Lonnie Tai MD Refill Request from Last [...] Answer Date Recorded Patient Health Questionnaire-2 Score 2 07/21/2025 Comments No Sex and Gender Information Value Date Recorded Sex Assigned at Not on file Legal Sex Female 5:23 PM MANAGEMENT SPECIALIST Gender Identity Not on file Sexual Orientation Not on file Last Filed Vital Signs Vital Sign Reading Time Taken Comments Blood Pressure 140/90 07/21/2025 12:56 PM CDT Pulse 88 07/21/2025 12:56 PM CDT Temperature 37.1 C (98.7 F) 07/16/2025 12:46 PM CDT Respiratory Rate 18 07/21/2025 12:56 PM CDT Oxygen Saturation 94% 07/21/2025 12:56 PM CDT Inhaled Oxygen Concentration - - Weight 66.2 kg (146 lb) 07/21/2025 12:56 PM CDT Height 167.6 cm (5' 6) 07/16/2025 12:46 PM CDT Body Mass Index 23.57 07/16/2025 12:46 PM CDT Plan of Treatment Upcoming Encounters Date Type Department Care Team (Late st Contact Info) Description 11/10/2025 2:30 PM MANAGEMENT SPECIALIST Office Visit [facility] - Rheumatology [address] [place] [address], [place] [phone] Mariam Borges MD [address] [place] [address] [place] [phone] 01/15/2026 1:00 PM CDT Procedure visit [facility] GI [address] [place] [phone] 01/15/2026 1:30 PM CDT Office Visit [facility] GI [address] [place] [phone] Thalia Dunlap MD [address] [place] [address] [address] [place] [phone] 01/15/2026 2:00 PM CDT Office Visit [facility] - GI [address] [place] [address], [place] [phone] Matias Lewis III, MD [address] [place] [address] [address] [place] [phone] Health Maintenance Due Date Last Done Comments COLOGUARD (AGES 45-75) - COLON CA SCREENING 1952 COLON MONITORING 1952 COLONOSCOPY - COLON CA SCREENING 1952 CT COLONOGRAPHY - COLON CA SCREENING 1952 Colorectal Cancer Screening 1952 FIT - COLON CA SCREENING 1952 FLEX SIG - COLON CA SCREENING 1952 MAMMOGRAM 1952 DTAP/TDAP/TD VACCINES (1 - Tdap) 1971 ZOSTER VACCINE (1 of 2) 2002 MEDICARE AWV CALENDAR YEAR 2024 COVID-19 VACCINE (3 - season) 2025 01/29/2021, 01/01/2021 INFLUENZA VACCINE (#1) 2025 , 08/04/2022, 07/01/2021, Additional history exists Respiratory Syncytial Virus (RSV) Vaccine Pt: or over 60 yrs (1 - 1-dose 75+ series) 2027 PNEUMOCOCCAL VACCINE 50+ Completed 12/02/2020, 11/2016 BONE DENSITY TESTING Completed 05/13/2021 HEPATITIS C SCREENING Completed 08/16/2023 , 12/15/2022, 12/11/2020, Additional history exists DEPRESSION SCREENING Completed 07/21/2025, 11/14/2023, 09/20/2022 HEPATITIS B VACCINE Aged Out No longe [...] on patient's age to complete this topic Goals Goal Patient Goal Type Associated Problems Recent Progress Patient-Stated? Author Medication Management General Loco Rodriguez RN Note: Expected end date: ongoing Interventions: Take all medications as prescribed Let your doctor know right away about any changes in your medications Make sure to request a refill of your medication at least one week prior to your last dose Procedures Procedure Name Priority Date/Time Associated Diagnosis Comments QUANTIFERON-TB GOLD PLUS 4-TUBE Routine 07/21/2025 3:03 PM CDT Seropositive erosive rheumatoid arthritis (HCC) HEPATITIS B SURFACE ANTIBODY QUANT Routine 07/21/2025 3:03 PM CDT Seropositive erosive rheumatoid arthritis (HCC) HEPATITIS B SURFACE ANTIGEN W RFLX CONFIRMATION Routine 07/21/2025 3:03 PM CDT Seropositive erosive rheumatoid arthritis (HCC) HEPATITIS B CORE ANTIBODY TOTAL Routine 07/21/2025 3:03 PM CDT Seropositive erosive rheumatoid arthritis (HCC) ERYTHROCYTE SEDIMENTATION RATE Routine 07/21/2025 3:03 PM CDT Seropositive erosive rheumatoid arthritis (HCC) C-REACTIVE PROTEIN Routine 07/21/2025 3: 03 PM CDT Seropositive erosive rheumatoid arthritis (HCC) COMPREHENSIVE METABOLIC PANEL Routine 07/21/2025 3:03 PM CDT Seropositive erosive rheumatoid arthritis (HCC) CBC W AUTO DIFFERENTIAL Routine 07/21/2025 3:03 PM CDT Seropositive erosive rheumatoid arthritis (HCC) HEMOGLOBIN A1C Routine 07/18/2025 1:45 PM CDT Type 2 diabetes mellitus with other specified complication, unspecified whether terminal manager insulin use (HCC) PROC FIBROSCAN Routine 07/16/2025 12:23 PM CDT NAFLD (nonalcoholic fatty liver disease) NM LIVER ELASTOGRAPHY Routine 07/16/2025 12:23 PM CDT NAFLD (nonalcoholic fatty liver disease) HEPATITIS C ANTIBODY Routine 08/16/2023 8:36 AM CDT 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 arthritis Therapeutic drug monitoring High risk medication use DEXA BONE DENSITY AXIAL SKELETON Routine 05/13/2021 8:11 AM CDT Seropositive erosive rheumatoid arthritis Osteoporosis screening from Last 3 Months or Most Recently Relevant to Health Maintenance Results * QUANTIFERON-TB GOLD PLUS 4-TUBE (07/21/2025 3:03 PM CDT) [facility] QuantiFERON Criteria Comment [facility] INSURANCE BILL Comment: QuantiFERON-TB Gold Plus [...] IU/mL [facility] INSURANCE BILL QuantiFERON Nil Value 0.02 IU/mL [facility] INSURANCE BILL QuantiFERON Mitogen Value >10.00 IU/mL [facility] INSURANCE BILL QuantiFERON-TB Gold Plus Negative Negative [facility] INSURANCE BILL Comment: No response to M tuberculosis antigens detected. Infection with M tuberculosis is unlikely, but high risk individuals should be considered for additional testing (ATS/IDSA/CDC Clinical Practice Guidelines, 2017). The reference range is an Antigen minus Nil result of <0.35 IU/mL. The specimen received for QuantiFERON testing was incubated by the ordering institution. Specific procedures outlined in our Directory of Services and in the package insert for the QuantiFERON Gold (In Tube) test must be followed to enable for proper stimulation of cells for the production of interferon gamma. Chemiluminescence immunoassay methodology Blood BLOOD SPECIMEN / Unknown 07/21/2025 3:03 PM CDT 07/21/2025 Narrative [facility] INSURANCE BILL - 07/23/2025 7:09 AM CDT Performed at: [address] [place] [address] [address] [place], [place] [id number] Direct Service Worker: Evaristo [place] PhD, Phone: [phone] us Dennis Davidson MD LAB - CHEMISTRY ORDERABLES Final Result Performing Organization Address [facility] Co de Phone Number [facility] INSURANCE BILL [address] [place] [address] * (ABNORMAL) HEPATITIS B SURFACE ANTIBODY QUANT (07/21/2025 3:03 PM CDT) Pathologist [facility] Hepatitis B Virus Surface Antibody Quantitative <3.5(L) Immunity>1 0 mIU/mL [facility] INSURANCE BILL Comment: Status of Immunity Anti-HBs Level Inconsistent with Immunity 0.0 - 10.0 Consistent with Immunity >10.0 Blood BLOOD SPECIMEN / Unknown 07/21/2025 3:03 PM CDT 07/21/2025 Narrative [facility] INSURANCE BILL - 07/22/2025 7:09 AM CDT Performed at: - [address] [id number] Direct Service Worker: Evaristo [place] PhD, Phone: [phone] us Dennis Davidson MD LAB - SEROLOGY ORDERABLES Final Result Performing Organization Address [facility] de Phone Number [facility] INSURANCE BILL [address] [place] [address] * C-REACTIVE PROTEIN (07/21/2025 3:03 PM CDT) [facility] C-Reactive Protein 8 0 - 10 mg/L [facility] INSURANCE BILL Blood BLOOD SPECIMEN / Unknown 07/21/2025 3:03 PM CDT 07/21/2025 Narrative [facility] INSURANCE BILL - 07/22/2025 9:10 AM CDT Performed at: [address] [id number] Direct Service Worker: Evaristo [place] PhD, Phone: [phone] Dennis Davidson MD LAB - CHEMISTRY ORDERABLES Final Result [facility] INSURANCE BILL [address] [place] [address] * ERYTHROCYTE SEDIMENTATION RATE (07/21/2025 3:03 PM CDT) Erythrocyte Sedimentation Rate Westergren 8 0 - 40 mm/hr [facility] INSURANCE BILL Blood BLOOD SPECIMEN / Unknown 07/21/2025 3:03 PM CDT 07/21/2025 Narrative [facility] INSURANCE BILL - 07/22/2025 7:09 AM CDT Performed at: - [address] [id number] Direct Service Worker: Evaristo [place] PhD, Phone: [phone] Dennis Davidson MD LAB - HEMATOLOGY ORDERABLES Emily l Result Performing Organization Address City/[facility] Co de Phone Number [facility] INSURANCE BILL [address] [place] [address] * CBC WITH DIFFERENTIAL (07/21/2025 3:03 PM CDT) Pathologist [facility] WBC 8.4 3.4 - 10.8 x10E3/uL [facility] INSURANCE BILL RBC 5.25 3.77 - 5.28 x10E6/uL [facility] INSURANCE BILL Hemoglobin 14.3 11.1 - 15.9 g/dL [facility] INSURANCE BILL Hematocrit 44.3 34.0 - 46.6 % [facility] INSURANCE BILL MCV 84 79 - 97 fL [facility] INSURANCE BILL MCH 27.2 26.6 - 33.0 pg [facility] INSURANCE BILL MCHC 32.3 31.5 - 35.7 g/dL [facility] INSURANCE BILL RDW 14.8 11.7 - 15.4 % [facility] INSURANCE BILL Platelet Count 221 150 - 450 x10E3/uL [facility] INSURANCE BILL Granulocytes % 76 Not Estab. % [facility] INSURANCE BILL Lymphocytes % 16 Not Estab. % [facility] INSURANCE BILL Monocytes % 6 Not Estab. % [facility] INSURANCE BILL Eosinophils % 1 Not Estab. % [facility] INSURANCE BILL Basophils % 1 Not Estab. % [facility] INSURANCE BILL Granulocytes Absolute 6.3 1.4 - 7.0 x10E3/uL [facility] INSURANCE BILL [...] 0.0 - 0.1 x10E3/uL [facility] INSURANCE BILL Blood BLOOD SPECIMEN / Unknown 07/21/2025 3:03 PM CDT 07/21/2025 Narrative [facility] INSURANCE BILL - 07/22/2025 7:09 AM CDT Performed at: [address] [place], [place] [address] [place], [place] [id number] Direct Service Worker: Evaristo [place] PhD, Phone: [phone] Dennis Davidson MD LAB - HEMATOLOGY ORDERABLES Emily l Result [facility] INSURANCE BILL [address] [place] [address] * (ABNORMAL) COMPREHENSIVE METABOLIC PANEL (07/21/2025 3:03 PM CDT) Glucose 114(H) 70 - 99 mg/dL [facility] INSURANCE BILL BUN 6(L) 8 - 27 mg/dL [facility] INSURANCE BILL Creatinine 0.78 0.57 - 1.00 mg/dL [facility] INSURANCE BILL eGFR by CKD-EPI 81 >59 mL/min/1.7 3 [facility] INSURANCE BILL BUN/Creatinine Ratio 8(L) 12 - 28 [facility] INSURANCE BILL Sodium 139 134 - 144 mmol/L [facility] INSURANCE BILL Potassium 3.8 3.5 - 5.2 mmol/L [facility] INSURANCE BILL Chloride 104 96 - 106 mmol/L [facility] INSURANCE BILL CO2 19(L) 20 - 29 mmol/L [facility] INSURANCE BILL Calcium 9.2 8.7 - 10.3 mg/dL [facility] INSURANCE BILL Protein Total 6.4 6.0 - 8.5 g/dL [facility] INSURANCE BILL Albumin 4.5 3.8 - 4.8 g/dL [facility] INSURANCE BILL Globulin Total 1.9 1.5 - 4.5 g/dL [facility] INSURANCE BILL Bilirubin Total 0.6 0.0 - 1.2 mg/dL [facility] INSURANCE BILL Alkaline Phosphatase 146(H) 49 - 135 IU/L [facility] INSURANCE BILL AST 18 0 - 40 IU/L [facility] INSURANCE BILL ALT 20 0 - 32 IU/L [facility] INSURANCE BILL Blood BLOOD SPECIMEN / Unknown 07/21/2025 3:03 PM CDT 07/21/2025 Narrative [facility] INSURANCE BILL - 07/22/2025 7:09 AM CDT Performed at: [address] [place] [id number] Direct Service Worker: Evaristo [place] PhD, Phone: [phone] Dennis Davidson MD LAB - CHEMISTRY ORDERABLES Final Result Performing Organization Address [facility] Co de Phone Number [facility] INSURANCE BILL [address] [place] [address] * HEPATITIS B CORE ANTIBODY TOTAL (07/21/2025 3:03 PM CDT) [facility] Hepatitis B Core Virus Antibody Total Negative Negative [facility] INSURANCE BILL Blood BLOOD SPECIMEN / Unknown 07/21/2025 3:03 PM CDT 07/21/2025 Narrative [facility] INSURANCE BILL - 07/22/2025 7:09 AM CDT Performed at: [address] [place] [id number] Direct Service Worker: Evaristo [place] PhD, Phone: [phone] Dennis Davidson MD LAB - CHEMISTRY ORDERABLES Final Result Performing Organization Address City/[facility] de Phone Number [facility] INSURANCE BILL [address] [place] [address] * HEPATITIS B SURFACE ANTIGEN W RFLX CONFIRMATION (07/21/2025 3:03 PM CDT) Hepatitis B Virus Surface Antigen Negative Negative [facility] INSURANCE BILL Blood BLOOD SPECIMEN / Unknown 07/21/2025 3:03 PM CDT 07/21/2025 Narrative [facility] INSURANCE BILL - 07/22/2025 7:09 AM CDT Performed at: [address] [place] [id number] Direct Service Worker: Evaristo [place] PhD, Phone: [phone] Dennis Davidson MD LAB - CHEMISTRY ORDERABLES Final Result Performing Organization Address [facility] Co de Phone Number [facility] INSURANCE BILL [address] [place] [address] * (ABNORMAL) HEMOGLOBIN A1C (07/18/2025 1:45 PM CDT) Hemoglobin A1c 6.8(H) 4.8 - 5.6 % [facility] INSURANCE BILL Comment: Prediabetes: 5.7 - 6.4 Diabetes: >6.4 Glycemic control for adults with diabetes: <7.0 Blood BLOOD SPECIMEN / Unknown 07/18/2025 1:45 PM CDT 07/18/2025 Narrative [facility] INSURANCE BILL - 07/19/2025 6:09 AM CDT Performed at: [address] [place] [id number] Direct Service Worker: Evaristo [place] PhD, Phone: [phone] Matias [place] III, MD LAB - CHEMISTRY ORDERABLE S Final Result Performing Organization Address [facility] de Phone Number [facility] INSURANCE BILL [address] [place] [address] * NM LIVER ELASTOGRAPHY (07/16/2025 12:23 PM CDT) Umu Pardo RN - 07/16/2025 12:23 PM CDT Umu Watson RN 07/16/2025 12:25 PM Diagnosis: NAFLD RN verified patient NPO for prior 3 hours. Procedure explained. Date of Exam: 07/16/2025 Liver Stiffness: (LSM, kPa) median: 13.2 IQR/Median% (ideally < 30%): 19% CAP (controlled attenuation parameter): 301 Technical Difficulty: None Ordering Provider: Dr. Dunlap Phone Fax Thalia Dunlap MD PROCEDURE/MINOR SURGICAL ORDERAB LES Final Result * HEPATITIS C ANTIBODY (08/16/2023 8:36 AM [...] Resulting Agency Comment Lab Testing performed at: [facility] [place] [id number] [facility] [id number] Lonnie Tai MD LAB - CHEMISTRY ORDERABL ES Final Result [facility] INSURANCE BILL [address] [place] [address] * BONE DENSITY AXIAL SKELETON(1OR MORE SITES)[id number] (05/13/2021 8:11 AM CDT) Anatomical Region Laterality Modality Other 05/13/2021 2:47 PM CDT Narrative 05/13/2021 3:03 PM CDT Examination: Dual energy x-ray absorptiometry of the hip. Clinical Indication: M05.80: Seropositive erosive rheumatoid arthritis Z13.820: Osteoporosis screening Findings: Detailed data from the exam is sent separately to the ordering physician and is also available on [employer], the Radiology Department's computerized picture archive system. [...] 3:03 PM . Procedure Note Tanvi Flores, - 05/13/2021 Examination: Dual energy x-ray absorptiometry of the hip. Clinical Indication: M05.80: Seropositive erosive rheumatoid arthritis Z13.820: Osteoporosis screening Findings: Detailed data from the exam is sent separately to the ordering physician and is also available on [employer], the Radiology Department's computerized picture archive system. [...] Most Recently Relevant to Health Maintenance Insurance [facility] MANAGED MEDICARE ADV Care Teams Automatic Grinding Machine Operator Relationship Specialty Start Date End Date Danny Tony MD [address] [address] PCP - General Internal Medicine 06/25/25
--- OUTSIDE RECORDS SUMMARY | 2025-07-29 15:16 | XMS_ITS | Clinical Summary ---
Author Organization [facility] Address [address] [place] [address] Care Team Providers Care Needle Bar Molder Name Role Phone Unavailable Primary Care Provider [...] 2017 COVID-19 Vaccine (2023-2 5 season) 2025 Influenza Adult (#1) 2025 RSV Immunization or 60+ Years (1 [...]
--- OUTSIDE RECORDS SUMMARY | 2025-07-29 15:16 | XMS_ITS | Clinical Summary ---
Author Organization [facility] [address] Address [address] [place] [address] Care Team Providers Care Research Physiologist Name Role Phone Eliana Mcneal NP Primary Care Provider [phone] Allergies Active Allergy Reactions Criticality Noted Date [...] of tobacco abuse 07/05/2021 Marijuana use 07/05/2021 Surgical History Surgery Date Site/Laterality Comments TONSILLECTOMY STOMACH SURGERY HERNIA REPAIR Medical History Medical History Date Comments Thyroid disease Diabetes mellitus Vitamin D deficiency Hyperlipidemia Hypertension Arthritis Porokeratosis [...] on file Legal Sex Female 9:57 PM HELP DESK REPRESENTATIVE Gender Identity Not on file Sexual Orientation [...] 74.4 kg (164 lb) 09/02/2024 9:32 AM HELP DESK REPRESENTATIVE Height 170.2 cm (5' 7) 09/02/2024 9:32 AM HELP DESK REPRESENTATIVE Body Mass Index 25.69 09/02/2024 9:32 AM HELP DESK REPRESENTATIVE Plan of Treatment Health Maintenance Due Date [...] POCT LIPID PANEL Routine 09/02/2024 9:26 AM HELP DESK REPRESENTATIVE Mixed diabetic hyperlipidemia associated with type 2 diabetes mellitus (HCC) from Last 3 Months or Most Recently Relevant to Health Maintenance Results * POCT lipid panel (09/02/2024 9:26 AM HELP DESK REPRESENTATIVE) Cholesterol, POC 101 mg/dL HDL, POC 46 mg/dL Triglycerides, POC 86 mg/dL LDL Cholesterol POC 38 mg/dL Chol/HDL Ratio, POC 0.8 Non-HDL Cholesterol, POC 56 mg/dL Cholesterol Total, POC 101 mg/dL Capillary blood 09/02/2024 9 :26 AM HELP DESK REPRESENTATIVE Nam Moore MD POINT OF CARE TEST O RDERABLES Final Result from Last 3 Months or Most Recently Relevant to Health Maintenance Insurance [facility] Address: [address] [address] [place] [address] [facility] MED[facility] Address: [address] [address] [place] [address] Care Teams Research Physiologist Relationship Specialty Start Date End Date Eliana Mcneal SAFETY PROFESSIONAL [address] [address] PCP - General Family Medicine 09/02/24
--- OUTSIDE RECORDS SUMMARY | 2025-07-29 15:16 | XMS_ITS | Encounter Summary ---
Author Organization [facility] Address [address] [place] [address] Care Team Providers Care Breeder Service Technician Name Role Phone Tanya Jane MD Primary Care Provider [phone] Eliana Mcneal Primary Care Provider [phone] Dennis Davidson MD Unavailable Danny Tony MD Primary Care Provider Encounter Details Date Type Department Care Team ([facility] Contact Info) Description 04/21/2023 Telephone [facility] - Centralized Scheduling [address] [place] [address] Dennis Davidson MD [address] [place] [address] Social History Tobacco Use Types Packs/Day Years Used Date Smoking Tobacco: Former Smokeless Tobacco: Never Alcohol Use Standard Drinks/Week Comments Yes 1 (1 standard drink = 0.6 oz pur e alcohol) occaisionally PHQ-2 Answer Date Recorded PHQ2 TOTAL SCORE 0 09/20/2022 Comments No Sex and Gender Information Value Date Recorded Sex Assigned at Not on file Legal Sex Female 5:23 PM BACCARAT DEALER Gender Identity Not on file Sexual Orientation Not on file COVID-19 Exposure Response Date Recorded In the last 10 days, have yo u been in contact with someone who was confirmed or suspected to have Coronavirus/COVID-19? No / Unsure 04/21/2023 9:52 AM CDT documented as of this encounter Plan of Treatment Upcoming Encounters Date Type Department Care Team ([facility] Contact Info) Description 11/10/2025 2:30 PM BACCARAT DEALER Office Visit [facility] - Rheumatology [address] [place] [address], [place] [address] Mariam Borges MD [address] [place] [address] [place] [address] 01/15/2026 1:00 PM CDT [facility] [address] [place] [address], [place] [address] 01/15/2026 1:30 PM CDT Office Visit [facility] - [address], [place] [address] Thalia Dunlap MD [address] [place] [address] [address] [place] [address] 01/15/2026 2:00 PM CDT Office Visit [facility] - GI [address] [place] [address], [place] [address] Matias Lewis III, MD [address] [place] [address] [address]L [place] [address] documented as of this encounter Visit Diagnoses Not on filedocumented in this encounter Care Teams Breeder Service Technician Relationship Specialty Start Date End Date Tanya Jane MD [address] [place] [address] [place] [address] PCP - General 01/05/18 07/09/24 Eliana Mcneal [address] [place] [address] PCP - General 07/10/24 06/24/25 Dennis Davidson MD [address] [place] [address] [address] [place] [address] PCP - Attributed-[facility] [place] [facility] P4P 12/21/24 03/09/25 Danny Tony MD [address] [phone] PCP - General Internal Medicine 06/25/25 documented as of this encounter
--- OUTSIDE RECORDS SUMMARY | 2025-07-29 15:16 | XMS_ITS | Encounter Summary ---
Author Organization [facility] Address [address] [place] [address] Care Team Providers Care Study Coordinator Name Role Phone Tanya Jane MD Primary Care Provider [phone] Eliana Mcneal Primary Care Provider [phone] Dennis Davidson MD Unavailable Danny Tony MD Primary Care Provider Encounter Details Date Type Department Care Team (Late st Contact Info) Description 01/04/2022 Telephone [facility] - Third Level [address] [place] [address], [place] [phone] Lisette Choe MD No info available Social History Tobacco Use Types Packs/Day Years Used Date Smoking Tobacco: Former Smokeless Tobacco: Never Alcohol Use Standard Drinks/Week Comments Yes 1 (1 standard drink = 0.6 oz pur e alcohol) occaisionally Comments No Sex and Gender Information Value Date Recorded Sex Assigned at Not on file Legal Sex Female 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 Patient Call Back number: [phone] documented in this encounter Plan of Treatment Upcoming Encounters Date Type Department Care Team (Late st Contact Info) Description 11/10/2025 2:30 PM POST TENSIONING IRONWORKER Office Visit [facility] - Rheumatology [address] [place] [address], [place] [address] Mariam Borges MD [address] [place] [address] [place] [phone] 01/15/2026 1:00 PM CDT [facility] [address], [place] [address] 01/15/2026 1:30 PM CDT [facility] - [address], [place] [address] Thalia Dunlap MD [address] [place] [address] [address] 1 [place] [phone] 01/15/2026 2:00 PM CDT Office Visit [facility] - [address], [place] [phone] Matias Lewis III, MD [address] [place] [address] [address] [place] [phone] documented as of this encounter Visit Diagnoses Not on filedocumented in this encounter Care Teams Study Coordinator Relationship Specialty Start Date End Date Tanya Jane MD [address] [place] [address] [place] [phone] PCP - General 01/05/18 07/09/24 Eliana Mcneal [address] [place] [address] PCP - General 07/10/24 06/24/25 Dennis Davidson MD [address] [place] [address] PCP - Attributed-[facility] [place] [facility] P4P 12/21/24 03/09/25 Danny Tony MD [address] [phone] PCP - General Internal Medicine 06/25/25 documented as of this encounter
== END 2025-07-29 14:20 | disposition home or self-care (01) ==
PROVIDERS: PCP Internal Medicine; Visit Provider Internal Medicine
DX: E03.9 Hypothyroidism, unspecified (principal)
CPT/HCPCS: 76536

== ENCOUNTER 2025-08-06 02:28 | Day surgery (SDC) | payer MEDICARE, MEDICAID, SELFPAY ==
[2025-07-30 08:24] VITALS: BMI 23.5
--- OUTSIDE RECORDS SUMMARY | 2025-08-06 02:35 | XMS_ITS | Clinical Summary ---
Author Organization [facility] Address [address] [place] [address] Care Team Providers Care Manager Merchandising Name Role Phone Unavailable Primary Care Provider [...]
--- OUTSIDE RECORDS SUMMARY | 2025-08-06 02:35 | XMS_ITS | Clinical Summary ---
Author Organization [facility] Address [address] [address] Care Team Providers Care Hydrate Control Tender Name Role Phone Eliana Duncan APRN Primary Care Provider [phone] Medications pantoprazole (PROTONIX) 40 MG EC tablet [...] Department Care Team Description 06/25/2025 Documentation Only [facility], [address] [phone] Jono Osuna DO 06/25/2025 Documentation Only [facility], [address] [address] Jono Osuna DO 06/17/2025 2:45 PM CDT Office Visit [facility], [facility] [address] [facility] [address] [place] [address] Jono Osuna DO Stage 3 chronic kidney disease, not otherwise specified (HCC) (Primary Dx); Other iron deficiency anemia; Nonalcoholic fatty liver disease (NAFLD); Rheumatoid arthritis with rheumatoid factor of unspecified site without organ or systems involvement, not otherwise specified (HCC); Hypertensive chronic kidney disease; Type 2 diabetes mellitus with diabetic chronic kidney disease (HCC); Pure hypercholesterolemia, not otherwise specified; Other specified hypothyroidism 06/17/2025 Refill [facility], [facility] [address] [facility] [address] [place] [address] Yany Rubalcava CMA 06/10/2025 Documentation Only [facility], [facility] [address] [place] [address] Jono Osuna DO 06/04/2025 Orders Only [facility], [address] [address] Jono Osuna DO from Last [...] st Contact Info) Description 09/23/2025 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 Office Visit [facility], [facility] [address] [facility] [address] [place] [address] Jono Osuna DO [facility] [address] [place] [address] Health Maintenance Due Date Last Done Comments [...] Cystatin C 1.31(H) 0.78 - 1.15 mg/L [facility] eGFR by Cystatin C 48(L) >59 mL/min/1.7 3 [facility] 06/04/2025 7:56 AM CDT 06/03/2025 11:00 PM CDT us Jono Osuna DO LAB BLOOD ORDERABLES Final R esult [facility] [address] [place] [address] * SPECIMEN STATUS REPORT (06/04/2025 7:56 AM CDT) Specimen Status Comment [facility] Comment: Ambig Abbrev RP10 Default Ambig Abbrev RP10 Default A hand-written panel/profile was received from your office. In accordance with the [facility] Ambiguous Test Code Policy dated April 2003, we have completed your order by using the closest currently or formerly recognized AMA panel. We have assigned Renal Panel (10), Test Code #114017 to this request. If this is not the testing you wished to receive on this specimen, please contact the [facility] Client Inquiry/Technical Services Department to clarify the test order. We appreciate your business. 06/04/2025 7:56 AM CDT 06/03/2025 11:00 PM CDT Jono Osuna DO LAB BLOOD ORDERABLES Final R esult Performing Organization Address [facility] Co de Phone Number [facility] [address] [place] [address] * (ABNORMAL) Result (06/04/2025 7:56 AM CDT) Result Klebsiella pneumoniae(A) [facility] [phone] Comment: Cefazolin with an LEVY <=16 predicts susceptibility to the oral agents cefaclor, cefdinir, cefpodoxime, cefprozil, cefuroxime, cephalexin, and loracarbef when used for therapy of uncomplicated urinary tract infections due to E. coli, Klebsiella pneumoniae, and Proteus mirabilis. Greater than 100,000 colony forming units per mL ANTIMICROBIAL SUSCEPTIBILITY Comment [facility] Comment: S = Susceptible; I = Intermediate; [...] O RDERABLES Final Result Performing Organization Address City/[facility]/ZIP Co de Phone Number [facility] [address] [place] [address] * Microscopic Examination (06/04/2025 7:56 AM CDT) WBC, Urine None seen 0 - 5 /hpf [facility] RBC, Urine 0-2 0 - 2 /hpf [facility] Squamous Epithelial, Urine 0-10 0 - 10 /hpf [facility] Casts None seen None seen /lpf [facility] Bacteria, Urine Few None seen/Few [facility] 06/04/2025 7:56 AM CDT 06/03/2025 11:00 PM CDT Jono Osuna DO LAB MICROBIOLOGY - GENERAL O RDERABLES Final Result [facility] [address] [place] [address] * (ABNORMAL) CBC Diff Ambiguous Default (06/04/2025 7:56 AM CDT) Pathologist [facility] WBC 5.3 3.4 - 10.8 x10E3/uL [facility] RBC 5.49(H) 3.77 - 5.28 x10E6/uL [facility] Hemoglobin 13.8 11.1 - 15.9 g/dL [facility] Hematocrit 44.4 34.0 - 46.6 % [facility] MCV 81 79 - 97 fL [facility] MCH 25.1(L) 26.6 - 33.0 pg [facility] MCHC 31.1(L) 31.5 - 35.7 g/dL [facility] RDW 22.7(H) 11.7 - 15.4 % [facility] Platelets 234 150 - 450 x10E3/uL [facility] Neutrophils Relative 67 Not Estab. % [facility] Lymphocytes Relative 20 Not Estab. % [facility] Monocytes 7 Not Estab. % [facility] Eosinophils Relative 4 Not Estab. % [facility] Basophils Relative 2 Not Estab. % [facility] Neutrophils Absolute 3.5 1.4 - 7.0 x10E3/uL [facility] Lymphocytes Absolute 1.0 0.7 - 3.1 x10E3/uL [facility] Monocytes Absolute 0.4 0.1 - 0.9 x10E3/uL [facility] Eosinophils Absolute 0.2 0.0 - 0.4 x10E3/uL [facility] Basophils Absolute 0.1 0.0 - 0.2 x10E3/uL [facility] Immature Granulocytes 0 Not Estab. % [facility] Immature Grans (Absolute) 0.0 0.0 - 0.1 x10E3/uL [facility] Comment: Note: [facility] Comment: Verified by microscopic examination. A hand-written panel/profile was received from your office. In accordance with the [facility] Ambiguous Test Code Policy dated April 2003, we have assigned CBC with Differential/Platelet, Test Code #[id number] to this request. If this is not the testing you wished to receive on this specimen, please contact the [facility] Client Inquiry/ Technical Services Department to clarify the test order. We appreciate your business. 06/04/2025 7:56 AM CDT 06/03/2025 11:00 PM CDT us Jono Osuna DO LAB BLOOD ORDERABLES Final R esult [facility] [address] [place] [address] * Iron Panel (Fe, TIBC, TSAT) (06/04/2025 7:56 AM CDT) TIBC 313 250 - 450 ug/dL [facility] UIBC 225 118 - 369 ug/dL [facility] Iron 88 27 - 139 ug/dL [facility] Iron Saturation (TSat) 28 15 - 55 % [facility] 06/04/2025 7:56 AM CDT 06/03/2025 11:00 PM CDT us Jono Osuna DO LAB BLOOD ORDERABLES Final R esult Performing Organization Address [facility] de Phone Number [facility] [address] [place] [address] * (ABNORMAL) Protein, Total, Random Urine w/Creatinine (Protein/Creat Ratio) (06/04/2025 7:56 AM CDT) Creatinine, Ur 76.1 Not Estab. mg/dL [facility] Protein, Ur 27.5 Not Estab. mg/dL [facility] Urine Protein/Creati nine Ratio 361(H) 0 - 200 mg/g [facility] 06/04/2025 7:56 AM CDT 06/03/2025 11:00 PM CDT Jono Osuna DO LAB URINE ORDERABLES Final R esult Performing Organization Address City/[facility]/ZIP Co de Phone Number [facility] [address] [place] [address] * (ABNORMAL) Urine Albumin / Creatinine Ratio (06/04/2025 7:56 AM CDT) Albumin, Urine 52.6 Not Estab. ug/mL [facility] Albumin/Creatin ine Ratio 69(H) 0 - 29 mg/g creat [facility] Comment: Normal: 0 - 29 Moderately increased: 30 - 300 Severely increased: >300 06/04/2025 7:56 AM CDT 06/03/2025 11:00 PM CDT Jono Osuna DO LAB URINE ORDERABLES Final R esult [facility] [address] [place] [address] * Vitamin D 25 Hydroxy (06/04/2025 7:56 AM CDT) Vitamin D, 25-OH, Total 54.6 30.0 - 100.0 ng/mL [facility] Comment: Vitamin D deficiency has been defined by the [place] of Medicine and an Endocrine Society practice guideline as a level of serum 25-OH vitamin D less than 20 ng/mL (1,2). The Endocrine Society went on to further define vitamin D insufficiency as a level between 21 and 29 ng/mL (2). 1. IOM ([place] of Medicine). 2010. Dietary reference intakes for calcium and D. [place]: The National Academies Press. 2. Melinda MF, Michelle NC, Orquidea BAPTISTE, et al. Evaluation, treatment, and prevention of vitamin D deficiency: an Endocrine Society clinical practice guideline. JCEM. 2010; 96(7):1911-30. 06/04/2025 7:56 AM CDT 06/03/2025 11:00 PM CDT Jono Osuna DO LAB BLOOD ORDERABLES Final R esult [facility] [address] [place] [address] * Urinalysis with microscopic (06/04/2025 7:56 AM CDT) Specific Orange, Urine 1.012 1.005 - 1.030 [facility] [phone] pH Urine 6.5 5.0 - 7.5 [facility] Color, Urine Yellow Yellow [facility] [phone] Appearance Urine Clear Clear [facility] [phone] WBC Esterase Urine Negative Negative [facility] [phone] Protein, Ur Trace Negative/Tra ce [facility] [phone] Glucose, Ur Negative Negative [facility] [phone] Ketones, Urine Negative Negative [facility] [phone] Blood Urine Negative Negative [facility] [phone] Bilirubin Urine Negative Negative [facility] [phone] Urobilinogen Urine 0.2 0.2 - 1.0 mg/dL [facility] [phone] Nitrite, Urine Negative Negative [facility] [phone] Microscopic Examination Comment [facility] Comment:Microscopic follows if indicated. Other Microsc. Observations See below: [facility] Comment:Microscopic was abdoul cated and was performed. 06/04/2025 7:56 AM CDT 06/03/2025 11:00 PM CDT us Jono Osuna DO LAB URINE ORDERABLES Final R esult [facility] [address] [place] [address] * (ABNORMAL) Urine Culture (06/04/2025 7:56 AM CDT) Culture Result, Urine Final report(A) [facility] 06/04/2025 7:56 AM CDT 06/03/2025 11:00 PM CDT Comment: Jono Osuna DO LAB URINE ORDERABLES Final R esult Performing Organization Address [facility] Co de Phone Number [email or web address] [address] [place] [address] * Magnesium (06/04/2025 7:56 AM CDT) Magnesium 2.1 1.6 - 2.3 mg/dL [facility] 06/04/2025 7:56 AM CDT 06/03/2025 11:00 PM CDT Jono Osuna DO LAB BLOOD ORDERABLES Final R esult Performing Organization Address [facility] de Phone Number [email or web address] [address] [place] [address] * Ferritin (06/04/2025 7:56 AM CDT) Ferritin 129 15 - 150 ng/mL [facility] 06/04/2025 7:56 AM CDT 06/03/2025 11:00 PM CDT Jono Osuna DO LAB BLOOD ORDERABLES Final R esult Performing Organization Address [facility] de Phone Number [email or web address] [address] [place] [address] * (ABNORMAL) Renal Function Panel (06/04/2025 7:56 AM CDT) Glucose 168(H) 70 - 99 mg/dL [facility] BUN 4(L) 8 - 27 mg/dL [facility] Creatinine 0.80 0.57 - 1.00 mg/dL [facility] eGFR CKD-EPI CR 2020 78 >59 mL/min/1.7 3 [facility] BUN/Creatinine Ratio 5(L) 12 - 28 [facility] Sodium 137 134 - 144 mmol/L [facility] Potassium 4.1 3.5 - 5.2 mmol/L [facility] Chloride 100 96 - 106 mmol/L [facility] Bicarbonate (CO2) 20 20 - 29 mmol/L [facility] Calcium 9.0 8.7 - 10.3 mg/dL [facility] Phosphorus 3.0 3.0 - 4.3 mg/dL [facility] Albumin 4.3 3.8 - 4.8 g/dL [facility] 06/04/2025 7:56 AM CDT 06/03/2025 11:00 PM CDT us Jono Osuna DO LAB BLOOD ORDERABLES Final R esult [facility] [address] [place] [address] from Last 3 Months Insurance * Guarantor: Kianna Hill Account Type Relation to Patient Date of Phone Billing Address Personal/Family Self 1950 [address] Medicare Advance Directives Documents on File Type Date Recorded Patient Nurses Supervisor Expl anation Advance Care Planning 01/09/2025 11:32 AM Care Teams Hydrate Control Tender Relationship Specialty Start Date End Date Eliana Duncan APRN [facility] Internal Med [facility] [address] [facility], [facility] [place] [address] PCP - General 09/02/24
--- OUTSIDE RECORDS SUMMARY | 2025-08-06 02:35 | XMS_ITS | Clinical Summary ---
Author Organization [facility] [employer] Address [address] [place] [address] Care Team Providers Care Asset Protection Manager Name Role Phone Danny Tony MD Primary Care Provider Source Comments [facility] [employer],non-owned Affiliates and Associated Physician Practices is amultiple site organization consisting of ambulatory clinics and hospital sitesin [place], [place], [place] and [place]. This disclosure is being madepursuant to the Care Everywhere program and may not contain all information available regarding this patient. Last updated 18.[facility] [employer] Allergies Active Allergy Reactions Criticality Noted Date [...] Active vitamin D, ergocalciferol, (Drisdol) 1.25 MG (18544 UT) capsule Take 1 (one) capsule by [...] Rheumatoid arthritis with rheumatoid factor 04/23 Other halfway (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 7 Encounter for therapeutic drug level monitoring 05/12/2017 Encounters Date Type Department Care Team Description 07/21/2025 1:00 PM CDT Office Visit [facility] - Rheumatology [address] [place] [address], [place] [phone] Mariam Borges MD Seropositive erosive rheumatoid arthritis (HCC) (Primary Dx) 07/21/2025 Travel 07/16/2025 1:00 PM CDT Office Visit [facility] - GI [address] [place] [phone] Matias Lewis III, MD Overweight (Primary Dx); Type 2 diabetes mellitus with other specified complication, unspecified whether halfway insulin use (HCC); Metabolic syndrome; Metabolic dysfunction-associate d steatotic liver disease (MASLD) 07/16/2025 12:30 PM CDT Office Visit [facility] - GI [address] [place] [phone] Thalia Dunlap MD Metabolic dysfunction-associate d steatotic liver disease (MASLD) (Primary Dx); Metabolic syndrome; Elevated liver enzymes; Splenomegaly; [place] grade C esophagitis 07/16/2025 12:30 PM CDT Procedure visit [facility] - GI [address] [place] [phone] Thalia Dunlap MD Metabolic dysfunction-associate d steatotic liver disease (MASLD) ; NAFLD (nonalcoholic fatty liver disease) 07/16/2025 Travel 06/27/2025 Travel 06/15/2025 Refill [facility] - Rheumatology [address] [place] [phone] Lonnie Tai MD Refill Request from Last [...] on file 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 Gender Identity Not on file Sexual Orientation [...] st Contact Info) Description 11/10/2025 2:30 PM CLOTH COVERER Office Visit [facility] - Rheumatology [address] [place] [address], [place] [phone] Mariam Borges MD [address] [place] [address] [place] [phone] 01/15/2026 1:00 PM CDT Procedure visit [facility] - GI [address] [place] [phone] 01/15/2026 1:30 PM CDT Office Visit [facility] - GI [address] [place] [phone] Thalia Dunlap MD [address] [place] [address] [address] [place] [phone] 01/15/2026 2:00 PM CDT Office Visit [facility] - GI [address] [place] [address], [place] [phone] Matias Lewis III, MD [address] [place] [address] [address] [place] [phone] Health Maintenance Due Date Last Done Comments [...] mellitus with other specified complication, unspecified whether ferry terminal supervisor insulin use (HCC) [place] LIVER ELASTOGRAPHY Routine 07/16/2025 12:23 PM CDT [...] GOLD PLUS 4-TUBE (07/21/2025 3:03 PM CDT) [facility] [address] QuantiFERON Criteria Comment [facility] INSURANCE BILL Comment: [...] - 07/23/2025 7:09 AM CDT Performed at: [address] [place] [id number] Truck Technician: Evaristo Hamilton PhD, Phone: [phone] us Dennis Davidson MD LAB - CHEMISTRY ORDERABLES Final Result Performing Organization Address City/[facility]/ZIP Co de Phone Number [facility] INSURANCE BILL [address] [place] [address] * (ABNORMAL) HEPATITIS B SURFACE ANTIBODY QUANT (07/21/2025 3:03 PM CDT) Pathologist [facility] Hepatitis B Virus Surface Antibody Quantitative <3.5(L) Immunity>1 0 mIU/mL [facility] INSURANCE BILL Comment: Status of Immunity Anti-HBs Level Inconsistent with Immunity 0.0 - 10.0 Consistent with Immunity >10.0 Blood BLOOD SPECIMEN / Unknown 07/21/2025 3:03 PM CDT 07/21/2025 Narrative [facility] INSURANCE BILL - 07/22/2025 7:09 AM CDT Performed at: [facility] [id number] Truck Technician: Evaristo Hamilton PhD, Phone: [phone] us Dennis Davidson MD LAB - SEROLOGY ORDERABLES Final Result Performing Organization Address [facility] de Phone Number [facility] INSURANCE BILL [address] [place] [address] * C-REACTIVE PROTEIN (07/21/2025 3:03 PM CDT) [facility] [address] C-Reactive Protein 8 0 - 10 mg/L [facility] INSURANCE BILL Blood BLOOD SPECIMEN / Unknown 07/21/2025 3:03 PM CDT 07/21/2025 Narrative [facility] INSURANCE BILL - 07/22/2025 9:10 AM CDT Performed at: [facility] [id number] Truck Technician: Evaristo Hmailton PhD, Phone: [phone] us Dennis Davidson MD LAB - CHEMISTRY ORDERABLES Final Result Performing Organization Address [facility] Co de Phone Number [facility] INSURANCE BILL [address] [place] [address] * ERYTHROCYTE SEDIMENTATION RATE (07/21/2025 3:03 PM CDT) Pathologist [facility] Erythrocyte Sedimentation Rate Westergren 8 0 - 40 mm/hr [facility] INSURANCE BILL Blood BLOOD SPECIMEN / Unknown 07/21/2025 3:03 PM CDT 07/21/2025 Narrative [facility] INSURANCE BILL - 07/22/2025 7:09 AM CDT Performed at: 01 - [facility] [id number] Truck Technician: Evaristo Hamilton PhD, Phone: [phone] Dennis Davidson MD LAB - HEMATOLOGY ORDERABLES Emily patel Result [facility] INSURANCE BILL [address] [place] [address] * CBC WITH DIFFERENTIAL (07/21/2025 3:03 PM CDT) Pathologist [facility] WBC 8.4 3.4 - 10.8 x10E3/uL [facility] [...] - 07/22/2025 7:09 AM CDT Performed at: [address] [id number] Truck Technician: Evaristo Hamilton PhD, Phone: [phone] us Dennis Davidson MD LAB - HEMATOLOGY ORDERABLES Emily patel Result [facility] INSURANCE BILL [address] [place] [address] * (ABNORMAL) COMPREHENSIVE METABOLIC PANEL (07/21/2025 3:03 [...] 07/22/2025 7:09 AM CDT Performed at: [address] [place] [id number] Truck Technician: Evaristo Hamilton PhD, Phone: [phone] Dennis Davidson MD LAB - CHEMISTRY ORDERABLES Final Result Performing Organization Address City/[facility]/ZIP Co de Phone Number [facility] INSURANCE BILL [address] [place] [address] * HEPATITIS B CORE ANTIBODY TOTAL (07/21/2025 3:03 PM CDT) Hepatitis B Core Virus Antibody Total Negative Negative [facility] INSURANCE BILL Blood BLOOD SPECIMEN / Unknown 07/21/2025 3:03 PM CDT 07/21/2025 Narrative [facility] INSURANCE BILL - 07/22/2025 7:09 AM CDT Performed at: [address] [id number] Truck Technician: Evaristo Hamilton PhD, Phone: [phone] us Dennis Davidson MD LAB - CHEMISTRY ORDERABLES Final Result [facility] INSURANCE BILL [address] [place] [address] * HEPATITIS B SURFACE ANTIGEN W RFLX CONFIRMATION (07/21/2025 3:03 PM CDT) Hepatitis B Virus Surface Antigen Negative Negative [facility] INSURANCE BILL Blood BLOOD SPECIMEN / Unknown 07/21/2025 3:03 PM CDT 07/21/2025 Narrative [facility] INSURANCE BILL - 07/22/2025 7:09 AM CDT Performed at: [address] [place] [id number] Truck Technician: Evaristo Hamilton PhD, Phone: [phone] Result [facility] Dennis Davidson MD LAB - CHEMISTRY ORDERABLES Final Result Performing Organization Address [facility] de Phone Number [facility] B[facility] [address] [place] [address] * (ABNORMAL) HEMOGLOBIN A1C (07/18/2025 1:45 PM CDT) [facility] [address] Hemoglobin A1c 6.8(H) 4.8 - 5.6 % [facility] INSURANCE BILL Comment: Prediabetes: 5.7 - 6.4 Diabetes: >6.4 Glycemic control for adults with diabetes: <7.0 Blood BLOOD SPECIMEN / Unknown 07/18/2025 1:45 PM CDT 07/18/2025 Narrative [facility] INSURANCE BILL - 07/19/2025 6:09 AM CDT Performed at: [address] [id number] Truck Technician: Evaristo Hamilton PhD, Phone: [phone] Result [facility] Matias Lewis III, MD LAB - CHEMISTRY ORDERABLE S Final Result Performing Organization Address [facility] Phone Number [facility] INSURANCE B[facility] [address] [place] [address] * [place] LIVER ELASTOGRAPHY (07/16/2025 12:23 PM CDT) [facility] [...] Resulting Agency Comment Lab Testing performed at: [facility] [address] [facility] [id number] Lonnie Tai MD LAB - CHEMISTRY ORDERABL ES Final Result [facility] INSURANCE BILL [address] [place] [address] * BONE DENSITY AXIAL SKELETON(1OR MORE SITES)[id number] (05/13/2021 8:11 AM CDT) Anatomical Region Laterality Modality Other 05/13/2021 2:47 PM CDT Narrative 05/13/2021 3:03 PM CDT Examination: Dual energy x-ray absorptiometry of the hip. Clinical Indication: M05.80: Seropositive erosive rheumatoid arthritis Z13.820: Osteoporosis screening Findings: Detailed data from the exam is sent separately to the ordering physician and is also available on [employer], the Radiology Department's computerized picture archive system. [...] ordering physician and is also available on [employer], the Radiology Department's computerized picture archive system. [...] Most Recently Relevant to Health Maintenance Insurance [facility] MANAGED MEDICARE ADV Care Teams Asset Protection Manager Relationship Specialty Start Date End Date Danny Tony MD [address] [phone] PCP - General Internal Medicine 06/25/25
--- OUTSIDE RECORDS SUMMARY | 2025-08-06 02:35 | XMS_ITS | Data Portability ---
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 Level Of School You Have Completed Or The Highest Degree You Have Received? [id number] MIGRATION.739832 8844 Information not available 12/21/2022 Have There Been Any Changes To Your Family Or Social Situation? No MIGRATION.489584 6279 Information not available 12/21/2022 When Did You Quit Smoking? 16+yearssincel georgina Information not available 06/27/2024 Are There Any Guns Present In Your Home? No MIGRATION.374655 7846 Information not available 12/21/2022 Do You Use Insect Repellent Routinely? No MIGRATION.860339 3086 Information not available 12/21/2022 What Was The Date Of Your Most Recent Tobacco Screening? 06/25/2025 Information not available 06/25/2025 How Many Children Do You Have? 1 Information not available 06/27/2024 Have You Ever Been Counseled For Unhealthy Alcohol Use? No MIGRATION.794767 0530 Information not available 12/21/2022 Do You Have Any Pets? No MIGRATION.465106 1086 Information not available 12/21/2022 What Is Your Relationship Status? Single MIGRATION.497909 0730 Information not available 12/21/2022 Do You Use Your Seat Belt Or Car Seat Routinely? Yes MIGRATION.558247 9386 Information not available 12/21/2022 Do You Have Smoke And Carbon Monoxide Detectors In Your Home? Yes MIGRATION.883413 1904 Information not available 12/21/2022 Are You Passively Exposed To Smoke? No MIGRATION.381674 3102 Information not available 12/21/2022 Are There Any Smokers In Your House? No MIGRATION.686849 6039 Information not available 12/21/2022 Do You Participate In Social Media? No MIGRATION.590308 6196 Information not available 12/21/2022 Do You Use Sunscreen Routinely? Yes MIGRATION.879615 5994 Information not available 12/21/2022 Has Tobacco Cessation Counseling Been Provided? No MIGRATION.506132 8153 Information not available 12/21/2022 Have You Recently Traveled Abroad? No Information not available 06/27/2024 Have You Used IV Drugs? No MIGRATION.267561 8216 Information not available 12/21/2022 Do You Have Difficulty Walking Or Climbing Stairs? No MIGRATION.391823 3516 Information not available 12/21/2022 Are You Currently In School? No MIGRATION.451116 7163 Information not available 12/21/2022 Do You Have Any Dietary Restrictions? No MIGRATION.494580 5957 Information not available 12/21/2022 Sex: Unknown Functional Status Question Answer Note LastModified by Organizat ion Details LastModified Time Do you use any illicit or recreational drugs? Yes weed MIGRATION.8302022 026 Information not available 12/21/2022 Do you or have you ever used any other forms of tobacco or nicotine? No MIGRATION.3640300 026 Information not available 12/21/2022 What is your level of alcohol consumption? Occasional MIGRATION.5234313 026 Information not available 12/21/2022 Are you currently employed? No Information not available 06/27/2024 Do you have transportation difficulties? No MIGRATION.0528173 026 Information not available 12/21/2022 Are you able to walk independently without assistance or assistive devices? YESWOREST MIGRATION.8097485 026 Information not available 12/21/2022 Do you have difficulty doing errands alone? No MIGRATION.4987318 026 Information not available 12/21/2022 Are you able to care for yourself independently? Yes MIGRATION.1920863 026 Information not available 12/21/2022 Do you have difficulty dressing, bathing, grooming, or toileting? No MIGRATION.4632973 026 Information not available 12/21/2022 What is your exercise level? Occasional MIGRATION.1824690 026 Information not available 12/21/2022 Mental Status Question Answer Note LastModified by Organizat ion Details LastModified Time Do you feel stressed (tense, restless, nervous, or anxious, or unable to sleep at night)? [id number] MIGRATION.48402131 26 Information not available 12/21/2022 Do you have difficulty concentrating, remembering or making decisions? No MIGRATION.61317301 26 Information not available 12/21/2022 Family History Nothing Reported Notes:says mom has heart iss ues doest know what kind Medical History Condition Response BLINDNESS N RHEUMATIC FEVER N KIDNEY STONES N BLADDER PROBLEMS N MRSA N OTHER # 1 N POLIO N LUNG DISEASE/DISORDER N HISTORY OF DRUG ABUSE N COPD N RADIATION / CHEMOTHERAPY N Other # 2 N BLOOD DISEASES [...] HAVE YOU BEEN HOSPITALIZED OR SEEN IN [facility] IN THE PAST YEAR ? N ATHEROSCLEROSIS [...] N PAIN N HERPES N DEMENTIA N SEIZURES/EPILEPSY N HEADACHES/MIGRAINES N VASCULAR DISEASE N PACEMAKER N DIZZINESS N KIDNEY DISEASE N HEART DISEASE/HEART PROBLEMS N SCARLET FEVER N MULTIPLE SCLEROSIS N MENTAL DISORDER/ILLNESS N DEVELOPMENTAL OR BEHAVIORAL DISORDERS N CARDIAC ARRHYTHMIA N CANCER: SPECIFY N PNEUMONIA N Gall Stones N ATRIAL FIBRILLATION N PULMONARY EMBOLISM N AUTOIMMUNE DISEASE N [...] Immunizations Vaccine Type Date Status Note Provider [facility] e and Address Organization Details Recorded Time COVID-19, mRNA, LNP-S, PF, 100 mcg/0.5mL dose or 50 mcg/0.25mL dose 1 completed Eliana Mcneal APRN [address] [facility], [place] [address], [place], [address], [facility] 06/27/2024 07:47:33 COVID-19, mRNA, LNP-S, PF, 100 mcg/0.5mL dose or 50 mcg/0.25mL dose 1 completed Eliana Mcneal APRN [address], [address], [place], [address], [facility] 06/27/2024 07:47:33 Influenza, high-dose, trivalent, PF 8 completed Eliana Mcneal APRN [address], [address], [place], [address], [facility] 06/27/2024 07:47:43 Influenza, high-dose, trivalent, PF 7 completed Eliana Mcneal APRN [address], [address], [place], [address], [facility] 06/27/2024 07:47:43 Influenza, split virus, quadrivalent, preservative 9 completed Not Available [facility] 12/21/2022 01:24:33 Influenza, high-dose, quadrivalent, PF 2 completed Not Available [facility] 12/21/2022 01:24:34 Influenza, high-dose, quadrivalent, PF 1 completed Not Available [facility] 12/21/2022 01:24:34 Influenza, high-dose, quadrivalent, PF 0 completed Not Available [facility] 12/21/2022 01:24:34 Pneumococcal conjugate PCV 13 1 completed Eliana Mcneal APRN [address], [address], [place], [address], [facility] 06/27/2024 07:47:33 Influenza, high-dose, trivalent, PF 9 completed Eliana Mcneal APRN [address], [address], [place], [address], [facility] 06/27/2024 07:47:33 pneumococcal polysaccharide PPV23 7 completed Not Available [facility] 12/21/2022 01:24:34 Influenza, high-dose, trivalent, PF 4 completed Eliana Mcneal APRN [address], [address], [place], [address], [facility] 08/27/2024 12:02:30 Past Encounters Encounter ID Performer Location Encounter Start Date Encounter Closed Date Diagnosis/Indication Diagnosis SNOMED-CT Code Diagnosis ICD10 Code Diagnosis IMO Codes Diagnosis Note [id number] Tanya Jane MD [facility] [address] [place] [address] 12/30/2020 00:00:00 12/30/2020 11:57:29 [id number] Tanya Jane MD [facility] Primary Care [address] [place] [address] 04/01/2021 00:00:00 04/20/2021 16:18:35 [id number] S[facility] [place] [address] [place] [address] 05/06/2021 00:00:00 05/06/2021 14:04:48 [id number] Tanya Jane MD [facility] Primary Care [address] [place] [address] 07/01/2021 00:00:00 07/01/2021 11:25:38 [id number] Tanya Jane MD [facility] Primary Care [address] [address] 08/11/2021 00:00:00 08/11/2021 08:31:37 [id number] Tanya Jane MD [facility] Primary Care [address] [address] 09/30/2021 00:00:00 10/20/2021 18:52:14 [id number] Tanya Jane MD [facility] Primary Care [address] [address] 05/04/2022 00:00:00 05/20/2022 12:18:19 [id number] S[facility]Histor ic[facility] [place] [address] [facility] [address] [place] [address] 05/19/2022 00:00:00 05/20/2022 09:27:22 [id number] Tanya Jane MD [facility] Primary Care Sheila molinae [address] [facility] [address] [place] [address] 08/04/2022 00:00:00 08/04/2022 15:24:09 [id number] Tanya Jane MD [facility] Primary Care Sheila molinae [address] [facility] [address] [place] [address] 09/26/2022 00:00:00 09/26/2022 10:59:24 [id number] Tanya Jane MD [facility] Primary Care Sheila molinae [address] [facility] [address] [place] [address] 11/01/2022 00:00:00 11/01/2022 11:50:32 [id number] Tanya Jane MD [facility] Primary Care Sheila molinae [address] [facility] [address] [place] [address] 12/29/2022 11:15:49 12/29/2022 12:08:15 Unintentional weight loss 845390880 R63.4 R05.9 20 pounds unintentio nal weight losshas cough but no fever, no change in appetite, no change in bowel habitslab work done 10/2022 and 11/2022 showed no significan t findings including a1c and tshcheck ct chest/abd/ pelvis for further evaluation Increased frequency of urination 663309022 R35.0 Cobalamin deficiency 190 716848 E53.8 [id number] Tanya Jane MD [facility] Primary Care Sheila molinae [address] [facility] [address] [place], [place] [address] 03/02/2023 08:44:09 03/02/2023 09:14:43 Nodule of lung 324356318 R91.1 R63.4 f/u due in August Cobalamin deficiency 190 085054 E53.8 Hyperlipidemia 20062447 E78.5 Hypothyroidism 98359612 E03.9 Vitamin D deficiency 347 69467 E55.9 Essential hypertension 64741057 I10 [id number] Tanya Jane MD [facility] Primary Care Sheila zaman [address] [facility] [address] [place] [address] 09/04/2023 10:30:05 09/04/2023 11:11:15 Nodule of lung 991967100 R91.[address] stable on 08/31/23, repeat in 6 months Cobalamin deficiency 190 366100 E53.8 Hyperlipidemia 57160260 E78.5 Hypothyroidism 56110671 E03.9 Vitamin D deficiency 347 68461 E55.9 Essential hypertension 33989023 I10 Diabetes mellitus 615860 09 E11.9 doing well per home sugar readingswi ll hold mounjaro at 5 mg if a1c is at goal due to weight loss and bloatingch davon labs, if stable, f/u in 6 months [id number] Jose Menchaca DPM [facility] [place] [address] [place] [address] 09/25/2023 16:29:23 09/25/2023 17:34:09 Porokeratosis 882988770 Q82.8 debrided without incident sub 5th metatarsal left footrecomm end use of Amlactin lotion daily and pumice stonefollo w-up 4 months Pain in left foot 287107 1765 17265 M79.672 Secondary to aboverecom mend orthotics power stepsrecom mend supportive shoe gear Dystrophia unguium 90048 009 L60.3 Nails 1 through 10 were debrided with sharp mechanical debridemen t without incident. Nails were debrided and greater than 50% length and thickness where needed. [id number] Jose Menchaca DPM [facility] [place] [address] [place] [address] 01/22/2024 13:58:32 01/22/2024 16:22:55 Dystrophia unguium 78214273 L60.3 Nails 1 through 10 were debrided with sharp mechanical debridemen t without incident. Nails were debrided and greater than 50% length and thickness where needed. Diabetes mellitus 985557 09 E11.9 A1c 09/04/2023 - 6.4continu e diabetic control per PCP recommenda tion Neuropathy due to type 2 diabetes mellitus 6196607623 88793 E11.40 recommend supportive shoe gear Bunion 991047636 M21.61 9 bilateral to the righteduca anju on treatment options [id number] Tanya Jane MD [facility] Primary Care Sheila zaman [address] [facility] [address] [place] [address] 03/04/2024 10:26:37 03/04/2024 11:11:43 Nodule of lung 829159254 R91.[address] scan 02/13-stabl e, repeat 1 year Cobalamin deficiency 190 426583 E53.8 Hyperlipidemia 17444137 E78.5 Hypothyroidism 30928805 E03.9 Vitamin D deficiency 347 29868 E55.9 Essential hypertension 96519729 I10 Diabetes mellitus 646096 09 E11.9 doing well per home sugar readingswi ll hold mounjaro at 5 mg if a1c is at goal due to weight loss and bloatingch davon labs, if stable, f/u in 6 months 03/04/24: had d/c mounjaro due to med s/ecannot tolerate metformin due GI s/echeck a1c [id number] Jose Menchaca DPM [facility] [place] [address] [place] [address] 04/22/2024 14:44:41 04/23/2024 10:57:43 Diabetes mellitus 64175502 E11.9 A1c 03/04/2024- 6.0continu e diabetic control per PCP recommenda tion Dystrophia unguium 64809 009 L60.3 Nails 1 through 10 were debrided with sharp mechanical debridemen t without incident. Nails were debrided and greater than 50% length and thickness where needed. [id number] Danny aaron MD [facility] Internal Med [address] , [address] [place] [address] 06/27/2024 11:10:40 06/27/2024 11:59:44 Screening mammography 51820312 Z12.31 Screening for osteoporosis 329261289 Z13.820 Essential hypertension 71342289 I10 Cobalamin deficiency 190 428379 E53.8 Vitamin D deficiency 347 01989 E55.9 Hyperlipidemia 51476016 E78.5 Renewal of prescription 374952778 Z76.0 Hypothyroidism 20422399 E03.9 Type 2 sean betes mellitus without complication 174994707 E11.9 Gastroesop hageal reflux disease without esophagitis 619427369 K21.9 Diabetes mellitus 255487 09 E11.9 Osteoporosis 80976757 M8 1.0 [id number] Jose Menchaca DPM [facility] [place] [address] [place] [address] 07/22/2024 14:22:39 07/25/2024 16:18:57 Diabetes mellitus 67603360 E11.9 A1c 03/04/2024- 6.0continu e diabetic control per PCP recommenda tion Dystrophia unguium 56904 009 L60.3 Nails 1 through 10 were debrided with sharp mechanical debridemen t without incident. Nails were debrided and greater than 50% length and thickness where needed. Partial th ickness burn of foot 49660525 T25.221A plantar right footdaily dressingsm onitor for infectionf ollow up in 1 week if not healed [id number] Danny aaron MD [facility] Internal Med [facility] [address] [facility], [address] [address] 08/27/2024 11:02:43 08/27/2024 12:08:13 Adult health examination 891718647 Z00.00 Screening for disorder 867731701 Z13.9 Hepatitis C screening 41 6804597 Z11.59 Administra tion of influenza vaccine 23128340 Z23 Diabetes mellitus 723774 09 E11.9 Renal insufficiency 7231 81425 N28.9 Cobalamin deficiency 190 999222 E53.8 [id number] Danny aaron MD [facility] Internal Med [facility] [address] [facility], [address] [address] 12/02/2024 14:39:57 12/02/2024 15:46:48 Screening mammography 17656873 Z12.31 Screening for osteoporosis 562872195 Z13.820 Adult heal th examination 316991953 Z00.00 [id number] Danny aaron MD [facility] Internal Med [facility] [address] [place] [address] 12/24/2024 10:50:10 12/24/2024 11:46:56 Vitamin D deficiency 89350819 E55.9 Diabetes mellitus 148049 09 E11.9 Uncontroll ed blood sugars and renal issues. Iron defic iency anemia 35794051 D50.9 Hyperlipidemia 87335885 E78.5 Chronic ki dney disease 822809350 N18.9 Hemorrhoids 48321967 K64 .9 [id number] Danny aaron MD [facility] Internal Med [facility] [address] [facility] [address] [place] [address] 06/03/2025 13:57:47 06/03/2025 15:08:11 Vitamin D deficiency 89990397 E55.9 Diabetes mellitus 687427 09 E11.9 On glipizide ER 5mg dailyOn Mounjaro 2.5mg weeklyGet labsNeeds to see eye MD and podiatry Hyperlipidemia 06136835 E78.5 Not on any medication sGet labs Chronic ki dney disease 345740576 N18.[address] Gunter, last OV 03/18/2025 , next apt is on 06/17/2025 Screening mammography 24 879810 Z12.31 42776967 Postmenopausal state 764 35841 Z78.0 247252 Screening due 036893763 Z13.9 [id number] C-scope: Dr Holguin 11/11/2024 Get yearly flu shot, get Tdap if not doneCan do COVID 19 boosterGet shingrix vaccineCan do Prevnar #20 vaccine RTC in 3 months, do labs, ER if worse, she did verbalize her understand ing of the above Essential hypertension 42625774 I10 38146 On amlodipine 5mg dailyOn losartan 100mg dailyOn nifedipine ER 30mg 2 tabs daily Gastroesop hageal reflux disease 897692062 K21.9 94901911 On omeprazole 40mg daily 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 M05.20 4185 On enbrelOn leflunomid e 20mg dailySees her rheumatolo gist Hypothyroidism 74722319 E03.9 52919268 On levothyrox ine 75mcgs dailyGet labsGet US thyroid Anemia 360047803 D64.9 82891783 Microcytic Has noted fatigueNee ds to get labs and now also see Dr Woodson hematology [id number] Danny aaron MD [facility] Sheila zaman [address] [facility] [address] [place] [address] 06/25/2025 10:14:58 06/25/2025 11:01:02 Screening due 843462503 Z13.9 [id number] C-scope: Dr Holguin 11/11/2024 Get yearly flu shot, get Tdap if not doneCan do COVID 19 boosterGet shingrix vaccineCan do Prevnar #20 vaccine RTC in 3 months, do labs, ER if worse, she did verbalize her understand ing of the above Vitamin D deficiency 347 86694 E55.9 Diabetes mellitus 078836 09 E11.9 On glipizide ER 5mg dailyOn Mounjaro 2.5mg weeklyGet labsNeeds to see eye MD and podiatry Hyperlipidemia 54255915 E78.5 Get on atorvastat in 20mg daily, all side effectsLDL goal is less than 70Get labs Chronic ki dney disease 650442186 N18.[address] Gunter Screening mammography 24 701918 Z12.31 62493466 Postmenopausal state 764 31322 Z78.0 473290 Essential hypertension 03014492 I10 65664 On amlodipine 5mg dailyOn losartan 100mg dailyOn nifedipine ER 30mg 2 tabs daily Gastroesop hageal reflux disease 674565570 K21.9 04190371 On omeprazole 40mg dailyIs to get an EGD on 08/06/2025 as per her history 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 190170 M05.20 4185 On enbrel Dennis Francesca DavidsonOn leflunomid e 20mg dailySees her rheumatolo gist Hypothyroidism 09168481 E03.9 06452264 On levothyrox ine 75mcgs dailyGet labsGet US thyroid Anemia 083259590 D64.9 00873567 Microcytic Has noted fatigueNee ds to get labs and now also see Dr Woodson hematology Liver enzy mes level above reference range 579009989 R74.8 103715 Get labs and US liver done Health Concerns Section Related Observation LastModified by Organization Detai ls LastModified Time None Recorded Concern Status LastModified by Organization Details LastModified Time None Recorded Advance Directives Directive None Recorded Payers Insurance Date Sequence Insurance Name Policy Number Policy Guardado Covered Member ID Guardado Member ID Guarantor Name 07/14/2025 1 [facility] (MEDICARE REPLACEMENT/A DVANTAGE - PPO) [id number] Kianna Hill [id number] Kianna Hill 07/14/2025 1 [facility] (MEDICARE REPLACEMENT/A DVANTAGE - HMO) [id number] Kianna Hill [id number] Kianna Hill Notes Date Note Type Note Provider Name and Address Organization Details Recorded Time 025 text/ht katherine Hutchison presents today for 3 month follow up. She was recently in the hospital a month ago for inability to walk. She was having leg pain. She states that she also had a colonoscopy and received a unit of blood. She also states that the financial services intern changed all of her medications and gave this provider a list. 08/27/2024Kianna presents today for her Medicare Annual Wellness visit. 06/27/2024Kianna presents today for routine check up and medication refills. Her previous provider has left the area so she would like to establish care with this provider. Eliana Mcneal, [employer] [address] [facility], [facility] [address], [place], [address], [facility] [employer] [facility] 12/02/2024 15:46:18 025 text/ht katherine Hutchison presents today for 4 month follow up. She states that she continues to have hemorrhoids that are causing some bleeding at times. She denies constipation or hard stools. She states that she has quit taking Mounjaro for her diabetes. 12/02/2024Kianna presents today for 3 month follow up. She was recently in the hospital a month ago for inability to walk. She was having leg pain. She states that she also had a colonoscopy and received a unit of blood. She also states that the financial services intern changed all of her medications and gave this provider a list. 08/27/2024Kianna presents today for her Medicare Annual Wellness visit. 06/27/2024Kianna presents today for routine check up and medication refills. Her previous provider has left the area so she would like to establish care with this provider. Eliana Mcneal APRN [address], [place], [address], [facility] [place] [facility] 12/24/2024 11:50:17 025 text/ht ml OV 06/03/2025:Here to establish care Present Hx:DMIIHLDCKDGERDRheumatoid arthritisHypothyroidismAnemia Here to discuss the above, does well otherwise Danny Tony MD [address], [place], [address], [facility] [employer] [facility] [place] [facility] 06/03/2025 18:46:25 025 text/ht ml OV 06/03/2025:Here to establish care Present Hx:DMIIHLDCKDGERDRheumatoid arthritisHypothyroidismAnemia Here to discuss the above, does well otherwise OV 06/25/2025: Here for her f/u apt, she is doing well today, she did do the labs, now is to get her EGD done, has not yet seen hematology Danny Tony MD [address], [facility] [address], [place], [address], [facility] [place] [facility] 06/25/2025 10:59:38 025 text/ht ml . Patient is a 74-year-old female who returns the office for follow-up on diabetic foot care. Patient overall is doing well she denies any new complaints. Patient states she has elongated toenails would like to have cut she can not cut them. Patient denies any open wounds or injury of the foot. Not Available Not Available Not Available OBGyn Episode No OBEpisode recorded.
--- OUTSIDE RECORDS SUMMARY | 2025-08-06 02:35 | XMS_ITS | Clinical Summary ---
Author Organization [facility] [address] Address [address] [place] [address] Care Team Providers Care Continuous Towel Roller Name Role Phone Eliana Mcneal NP Primary Care Provider [phone] Allergies Active Allergy Reactions Criticality Noted Date [...] on file Legal Sex Female 9:57 PM CIVIL PROCESS SERVER Gender Identity Not on file Sexual Orientation [...] 74.4 kg (164 lb) 09/02/2024 9:32 AM CIVIL PROCESS SERVER Height 170.2 cm (5' 7) 09/02/2024 9:32 AM CIVIL PROCESS SERVER Body Mass Index 25.69 09/02/2024 9:32 AM CIVIL PROCESS SERVER Plan of Treatment Health Maintenance Due Date [...] POCT LIPID PANEL Routine 09/02/2024 9:26 AM CIVIL PROCESS SERVER Mixed diabetic hyperlipidemia associated with type 2 diabetes mellitus (HCC) from Last 3 Months or Most Recently Relevant to Health Maintenance Results * POCT lipid panel (09/02/2024 9:26 AM CIVIL PROCESS SERVER) Cholesterol, POC 101 mg/dL HDL, POC 46 mg/dL Triglycerides, POC 86 mg/dL LDL Cholesterol POC 38 mg/dL Chol/HDL Ratio, POC 0.8 Non-HDL Cholesterol, POC 56 mg/dL Cholesterol Total, POC 101 mg/dL Capillary blood 09/02/2024 9 :26 AM CIVIL PROCESS SERVER Nam Moore MD POINT OF CARE TEST O RDERABLES Final Result from Last 3 Months or Most Recently Relevant to Health Maintenance Insurance [facility] MEDICARE ADVANTAGE [facility] MEDIC[facility] Address: [address] [address] [place] [address] [facility] MEDICARE ADVANTAGE [facility] MEDICARE Address: [address] [address] [place] [address] Care Teams Continuous Towel Roller Relationship Specialty Start Date End Date Eliana Mcneal PAYROLL ADMINISTRATIVE ASSISTANT [address] [address] PCP - General Family Medicine 09/02/24
--- OUTSIDE RECORDS SUMMARY | 2025-08-06 02:35 | XMS_ITS | Encounter Summary ---
Author Organization [facility] Health Address [address] [place] [address] Care Team Providers Care Director Of Customer Service Name Role Phone Tanya Jane MD Primary Care Provider [phone] Eliana Mcneal Primary Care Provider [phone] Dennis Davidson MD Unavailable Danny Tony MD Primary Care Provider Encounter Details Date Type Department Care Team ([facility] Contact Info) Description 04/21/2023 Telephone [facility] - Centralized Scheduling [address] [place] [address] Dennis Davidson MD [address] [address] Social History Tobacco Use Types Packs/Day Years Used Date Smoking Tobacco: Former Smokeless Tobacco: Never Alcohol Use Standard Drinks/Week Comments Yes 1 (1 standard drink = 0.6 oz pur e alcohol) occaisionally PHQ-2 Answer Date Recorded PHQ2 TOTAL SCORE 0 09/20/2022 Comments No Sex and Gender Information Value Date Recorded Sex Assigned at Not on file Legal Sex Female 5:23 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 No / Unsure 04/21/2023 9:52 AM CDT documented as of this encounter Plan of Treatment Upcoming Encounters Date Type Department Care Team ([facility] Contact Info) Description 11/10/2025 2:30 PM SOUTH ASIAN HISTORY PROFESSOR Office Visit [facility] - Rheumatology [address] [place] [address], [place] [address] Mariam Borges MD [address] [place] [address] DIV [place] [address] 01/15/2026 1:00 PM CDT [facility] GI [address] [place] [address], [place] [address] 01/15/2026 1:30 PM CDT Office Visit [facility] - [address], [place] [address] Thalia Dunlap MD [address] [place] [address] [address] [place] [address] 01/15/2026 2:00 PM CDT Office Visit [facility] - GI [address] [place] [address], [place] [address] Matias Lewis III, MD [address] [place] [address] [address] [place] [address] documented as of this encounter Visit Diagnoses Not on filedocumented in this encounter Care Teams Director Of Customer Service Relationship Specialty Start Date End Date Tanya Jane MD [address] [place] [address] [place] [address] PCP - General 01/05/18 07/09/24 Eliana Mcneal [address] [place] [address] PCP - General 07/10/24 06/24/25 Dennis Davidson MD [address] [place] [address] [address] [place] [address] PCP - Attributed-[facility] 12/21/24 03/09/25 Danny Tony MD [address] [phone] PCP - General Internal Medicine 06/25/25 documented as of this encounter
--- OUTSIDE RECORDS SUMMARY | 2025-08-06 02:35 | XMS_ITS | Encounter Summary ---
Author Organization [facility] Address [address] [facility] [place] [address] Care Team Providers Care Pattern Carrier Name Role Phone Tanya Jane MD Primary Care Provider [phone] Eliana Mcneal Primary Care Provider [phone] Dennis Davidson MD Unavailable Danny Tony MD Primary Care Provider Encounter Details Date Type Department Care Team (Late st Contact Info) Description 01/04/2022 Telephone [facility] - Third Level [address] [place] [address], [place] [phone] Lisette Choe MD No info available Social History Tobacco Use Types Packs/Day Years Used Date Smoking Tobacco: Former Smokeless Tobacco: Never Alcohol Use Standard Drinks/Week Comments Yes 1 (1 standard drink = 0.6 oz pur e alcohol) occaisionally Comments No Sex and Gender Information Value Date Recorded Sex Assigned at Not on file Legal Sex Female 5:23 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 Patient Call Back number: [phone] documented in this encounter Plan of Treatment Upcoming Encounters Date Type Department Care Team (Late st Contact Info) Description 11/10/2025 2:30 PM TUG MASTER Office Visit [facility] - Rheumatology [address] [place] [address], [place] [address] Mariam Borges MD [address] [place] [address] [place] [phone] 01/15/2026 1:00 PM CDT [facility] - [address], [place] [address] 01/15/2026 1:30 PM CDT [facility] - [address], [place] [address] Thalia Dunlap MD [address] [place] [address] [address] [place] [address] 01/15/2026 2:00 PM CDT Office Visit [facility] - [address], [place] [phone] Matias Lewis III, MD [address] [place] [address] [address] [place] [phone] documented as of this encounter Visit Diagnoses Not on filedocumented in this encounter Care Teams Pattern Carrier Relationship Specialty Start Date End Date Tanya Jane MD [address] [place] [address] [place] [phone] PCP - General 01/05/18 07/09/24 Eliana Mcneal [address] [place] [address] PCP - General 07/10/24 06/24/25 Dennis Davidson MD [address] [place] [address] PCP - Attributed-[facility] P4P 12/21/24 03/09/25 Danny Tony MD [address] [phone] PCP - General Internal Medicine 06/25/25 documented as of this encounter
[2025-08-06 09:32] VITALS: BP 201/91; PULSE 77; RESP 18; TEMP 36.5; O2SAT 100
[2025-08-06] MEDS: LACTATED RINGERS 1,000 ML 150 ML IV CONT (09:41)
[2025-08-06] MEDS: SIMETHICONE ORAL SUSPENSION 20 MG/0.3 ML 30 ML BOTTLE 1.8 ML PO (09:46)
--- NOTE | 2025-08-06 10:11 | WPDANESEPPF ---
Anes - Initial Pre Proc Eval Procedure: Operation Date: 08/06/25 10:30 Proposed Procedures p Esophagogastroduodenoscopy - Kennedy Holguin MD Date/Time: 08/06/25 10:11 Surgeon: Kennedy Holguin MD Pre Op Diagnosis: Gastro-esophageal reflux disease without esophagit Patient Data Age: 74 Gender: F Height: 1.7 m Weight: 65.9 kg Last Vital Signs Temp 36.5 C 08/06/25 09:32 Pulse 77 08/06/25 09:32 Resp 18 08/06/25 09:32 BP 201/91 H 08/06/25 09:32 Pulse Ox 100 08/06/25 09:32 O2 Del Method Room Air 08/06/25 09:32 Allergies Allergy/AdvReac Type Severity Reaction Status Date / Time codeine AdvReac Unknown Nausea and Verified 08/06/25 09:28 Vomiting Home Medications ?Medication ?Instructions ?Recorded ?Confirmed ?Type ergocalciferol (vitamin D2) 1,250 1,250 mcg PO DAILY 11/02/24 08/06/25 History mcg (50,000 unit) capsule etanercept 50 mg/mL (1 mL) 50 mg subcut WEEKLY 11/02/24 08/06/25 History subcutaneous pen injector (Enbrel SureClick) hydroxychloroquine 200 mg tablet 310 mg PO BID 11/02/24 07/30/25 History Held on 07/30/25. Instructions: Patient no longer taking isosorbide mononitrate 30 mg 30 mg PO DAILY 11/02/24 07/30/25 History tablet,extended release 24 hr Held on 07/30/25. Instructions: Patient no longer taking leflunomide 20 mg tablet (Arava) 20 mg PO DAILY 11/02/24 08/06/25 History levothyroxine 75 mcg tablet 75 mcg PO DAILY 11/02/24 08/06/25 History losartan 100 mg tablet 100 mg PO DAILY 11/02/24 08/06/25 History metformin 1,000 mg tablet 1,000 mg PO BID 11/02/24 08/06/25 History omeprazole 40 mg capsule,delayed 40 mg PO DAILY 11/02/24 08/06/25 History release sitagliptin phosphate 100 mg 100 mg PO DAILY 11/02/24 07/30/25 History tablet (Januvia) Held on 07/30/25. Instructions: Patient no longer taking tirzepatide 5 mg/0.5 mL 5 mg subcut WEEKLY 11/02/24 08/06/25 History subcutaneous pen injector (Milad) hydralazine 10 mg tablet 10 mg PO QID 30 days #120 tabs 11/11/24 07/30/25 Rx Held on 07/30/25. Instructions: Patient no longer taking nifedipine 30 mg tablet,extended 60 mg (2 x 30 mg) PO QAM #30 tabs 11/11/24 07/30/25 Rx release 24 hr (Procardia XL) Held on 07/30/25. Instructions: Patient no longer taking polyethylene glycol 3350 17 gram 17 g PO QAM #30 ea 11/11/24 07/30/25 Rx oral powder packet (Miralax) Held on 07/30/25. Instructions: Patient no longer taking polysaccharide iron complex 150 mg 150 mg PO BIDWM #30 caps 11/11/24 07/30/25 Rx iron capsule Held on 07/30/25. Instructions: Patient no longer taking Laboratory Tests 08/06/25 09:49 POC Capillary Glucose 137 H mg/dl (65-105) Patient hx anesthesia problems: none Family hx anesthesia problems: none Results Review: All pre-operative results and documents have been reviewed as part of the pre-operative evaluation. [facility] Past Medical History Medical History Arthritis Diabetes Hyperlipidemia Hypertension Social History Social History Smoking packs per day: 1 Smoking cigarettes per day: 20.0 Smoking status: Former smoker Tobacco type: cigarettes Alcohol intake: current Drinks per week: 1 Alcohol use details: rarely Substance use: current Substance use type: marijuana Other substance usage details: smokes pot every day Last use: 11/02/2024 Do You Feel Safe in your Home?: Yes Lack of Transportation: No Lack of Food: Never True Current Housing: I Have Housing Concerned About Future Housing: No Difficulty Paying Gas/Electric Bills: No Difficulty Paying for Meds: No Currently Unemployed: No Education: Grade School Difficulty w/ Childcare or Family Care: No Living arrangements: alone Spiritual care concerns: No Anes - Eval Final PreProcedure Day of Procedure 08/06/25 10:11 Patient weight: normal Heart: regular rate and rhythm Lungs: clear to auscultation Airway: Mallampati scale class II and special considerations poor dentition Neurological: alert and oriented Last oral intake: >/= 8 hours ASA classification: III Emergent: no Anesthetic plan: proceed Anesthesia type and monitoring: general GIVS and standard monitoring Results Review: All pre-operative results and documents have been reviewed as part of the pre-operative evaluation. Informed Consent: The patient's anesthetic plan and its attendant risks and benefits were discussed with the patient/family/POA. Questions were solicited and answers provided to the satisfaction of the patient/family/POA.
--- NOTE | 2025-08-06 10:56 | PM.IMHP ---
H&P: HPI History of Present Illness Date/Time: 08/06/25 10:56 Chief Complaint: GERD Narrative: The patient has been experiencing daily episodes for heartburn for several years, however these episodes were recently exacerbated. There is no dysphagia or unintentional weight loss. She is referred for EGD. Review of Systems Review of Systems: All systems reviewed & are unremarkable except as noted in HPI and below PMFSH Past Medical History Medical History Arthritis Diabetes Hyperlipidemia Hypertension Social History Social History Smoking packs per day: 1 Smoking cigarettes per day: 20.0 Smoking status: Former smoker Tobacco type: cigarettes Alcohol intake: current Drinks per week: 1 Alcohol use details: rarely Substance use: current Substance use type: marijuana Other substance usage details: smokes pot every day Last use: 11/02/2024 Do You Feel Safe in your Home?: Yes Lack of Transportation: No Lack of Food: Never True Current Housing: I Have Housing Concerned About Future Housing: No Difficulty Paying Gas/Electric Bills: No Difficulty Paying for Meds: No Currently Unemployed: No Education: Grade School Difficulty w/ Childcare or Family Care: No Living arrangements: alone Spiritual care concerns: No Meds Home Medications and Allergies Home Medications ?Medication ?Instructions ?Recorded ?Confirmed ?Type ergocalciferol (vitamin D2) 1,250 1,250 mcg PO DAILY 11/02/24 08/06/25 History mcg (50,000 unit) capsule etanercept 50 mg/mL (1 mL) 50 mg subcut WEEKLY 11/02/24 08/06/25 History subcutaneous pen injector (Enbrel Westick) hydroxychloroquine 200 mg tablet 310 mg PO BID 11/02/24 07/30/25 History Held on 07/30/25. Instructions: Patient no longer taking isosorbide mononitrate 30 mg 30 mg PO DAILY 11/02/24 07/30/25 History tablet,extended release 24 hr Held on 07/30/25. Instructions: Patient no longer taking leflunomide 20 mg tablet (Arava) 20 mg PO DAILY 11/02/24 08/06/25 History levothyroxine 75 mcg tablet 75 mcg PO DAILY 11/02/24 08/06/25 History losartan 100 mg tablet 100 mg PO DAILY 11/02/24 08/06/25 History metformin 1,000 mg tablet 1,000 mg PO BID 11/02/24 08/06/25 History omeprazole 40 mg capsule,delayed 40 mg PO DAILY 11/02/24 08/06/25 History release sitagliptin phosphate 100 mg 100 mg PO DAILY 11/02/24 07/30/25 History tablet (Januvia) Held on 07/30/25. Instructions: Patient no longer taking tirzepatide 5 mg/0.5 mL 5 mg subcut WEEKLY 11/02/24 08/06/25 History subcutaneous pen injector (Milad) hydralazine 10 mg tablet 10 mg PO QID 30 days #120 tabs 11/11/24 07/30/25 Rx Held on 07/30/25. Instructions: Patient no longer taking nifedipine 30 mg tablet,extended 60 mg (2 x 30 mg) PO QAM #30 tabs 11/11/24 07/30/25 Rx release 24 hr (Procardia XL) Held on 07/30/25. Instructions: Patient no longer taking polyethylene glycol 3350 17 gram 17 g PO QAM #30 ea 11/11/24 07/30/25 Rx oral powder packet (Miralax) Held on 07/30/25. Instructions: Patient no longer taking polysaccharide iron complex 150 mg 150 mg PO BIDWM #30 caps 11/11/24 07/30/25 Rx iron capsule Held on 07/30/25. Instructions: Patient no longer taking Allergies Allergy/AdvReac Type Severity Reaction Status Date / Time codeine AdvReac Unknown Nausea and Verified 08/06/25 09:28 Vomiting Vital Signs Vital Signs - 24 hr 08/06/25 09:32 Temperature 97.7 F Pulse Rate 77 Respiratory Rate 18 Blood Pressure 201/91 H Pulse Oximetry 100 Oxygen Delivery Room Air Exam Const: General: cooperative and healthy appearing Resp: Effort & Inspection: normal respiratory effort and able to speak in complete sentences Auscultation: clear to auscultation bilaterally Cardio: Rate: regular rate Rhythm: regular rhythm GI: Inspection: normal to inspection GI Palp: No No hepatosplenomegaly present Auscultation: normal bowel sounds Rectal Exam: deferred Skin: General skin exam: normal color Psych: Appearance: grossly normal Mental Status: mental status grossly normal Assessment and Plan Assessment and plan (1) GERD (gastroesophageal reflux disease): Code(s): K21.9 - Gastro-esophageal reflux disease without esophagitis Status: Acute Assessment and Plan: The patient is deemed a good candidate for the procedure. Consent signed. Will proceed.
--- NOTE | 2025-08-06 11:08 | S_PTH ---
PATIENT: Kianna Hill LOC: [facility] U#:[id number] AGE/SX: 74/F ROOM: RE08/06/[address]: Kennedy Holguin MD : 1950 BED: DIS: 08/06/2025 SPEC #: [id number] RECD: 08/06/25 11:56 STATUS: SHAKIRA REPrecious #: [id number] BELLA: 08/06/25 11:[address]: Kennedy Holguin DEPT: [facility] [place] Surgical RECD BY: Sunshine Carr ENTERED: 08/06/25 11:56 SP TYPE: Surgical OTHR DR: Danny TonyMD Tissues: A - Gastric Biopsy B - Gastric Biopsy Procedures: Hematoxylin and Eosin Stain Gross and Microscopic Level 4 H.Pylori
[2025-08-06 11:11] VITALS: BP 178/93; PULSE 72; RESP 20; O2SAT 100
[2025-08-06 11:21] VITALS: BP 169/76; PULSE 65; RESP 20; O2SAT 98
[2025-08-06 11:31] VITALS: BP 200/100; PULSE 62; RESP 18; O2SAT 100
== END 2025-08-06 11:36 | disposition home or self-care (01) ==
PROVIDERS: PCP Internal Medicine; Referring Provider Internal Medicine; Visit Provider Internal Medicine Gastroenterology
PROC: 0DJ08ZZ Inspection of Upper Intestinal Tract, Via Natural or Artificial Opening Endoscopic (ICD-10-PCS; CPT 43239; principal; 2025-08-06 10:30)
DX: K21.9 Gastro-esophageal reflux disease without esophagitis (principal); K29.50 Unspecified chronic gastritis without bleeding; E78.5 Hyperlipidemia, unspecified; I10 Essential (primary) hypertension; E11.9 Type 2 diabetes mellitus without complications; M19.90 Unspecified osteoarthritis, unspecified site; F12.90 Cannabis use, unspecified, uncomplicated; Z79.84 Long term (current) use of oral hypoglycemic drugs; Z79.85 Long-term (current) use of injectable non-insulin antidiabetic drugs; Z87.891 Personal history of nicotine dependence
CPT/HCPCS: 43239; 82948; 88305; 88342; J2003; J2704; J7120